=== PATIENT | female | born 1940 | race Caucasian/White ===

== ENCOUNTER 2017-09-15 22:13 | Emergency (ER) | payer OTHER ==
[~2017-09-15] VITALS: Ht 157.5 cm; Wt 101.8 kg
[~2017-09-15 22:13] MED LIST: ASPCH81X PO; B-CO1CAP17 PO; BUME2TAB3 PO; CALC12502 PO; FENO134C2 PO; FISHOIL PO; GARLTAB3 PO; KETO2CRE14 TOP; LISI2.5T5 PO; MCRK20 PO; MULTTAB PO; NITR0.4S UT; OMEP20CA9 PO; OXGN; RALO60TA30 PO; SPIR50TA2 PO; TRIA0.1C20 TOP; VERA120T PO
[2017-09-15 22:19] VITALS: TEMP 36.9; Ht 157.5 cm; Wt 101.8 kg
--- NOTE | 2017-09-15 22:58 | DIAGNOSTIC IMAGING REPORT ---
L ANKLE MIN 3 VIEWS ROUTINE HISTORY: 77 years-old Female left ankle pain, injury acute left ankle pain status post trauma COMPARISON: None available TECHNIQUE: 3 views of the left ankle FINDINGS: There is mild cortical irregularity and linear lucency involving the lateral malleolus below the level of the tibial plafond with subtle linear cortical lucencies and adjacent moderate associated soft tissue swelling. No acute displaced fracture identified. The bones appear mildly demineralized. Distal tibia appears intact. No osteochondral defect. Moderate spurring of the dorsal talus. Small plantar enthesophyte about the calcaneus. IMPRESSION: Moderate lateral ankle soft tissue swelling with suggested acute nondisplaced fracture of the lateral malleolus. Correlate with point tenderness. The above report was generated using voice recognition software. It may contain grammatical, syntax or spelling errors. Electronically signed by: Marcos Leroy M.D. 09/15/2017 10:56 PM Dictated Date/Time: 09/15/2017 10:54 PM
--- NOTE | 2017-09-15 23:02 | DIAGNOSTIC IMAGING REPORT ---
L KNEE 3 VIEWS HISTORY: 77 years-old Female left knee pain, injury acute left knee pain status post trauma COMPARISON: None available TECHNIQUE: 3 views of the left knee FINDINGS: Bones appear mildly demineralized. Mild to moderate tricompartmental osteoarthritis without acute fracture or subluxation identified. Trace joint effusion. IMPRESSION: No acute fracture. The above report was generated using voice recognition software. It may contain grammatical, syntax or spelling errors. Electronically signed by: Marcos Leroy M.D. 09/15/2017 11:01 PM Dictated Date/Time: 09/15/2017 10:58 PM
--- NOTE | 2017-09-15 23:28 | EMERGENCY ROOM VISIT NOTE ---
History First contact with patient: 22:17 Chief Complaint: ANKLE PAIN Stated Complaint: FALL/ ANKLE PAIN History of Present Illness The patient is a 77 year old female who presents to the Emergency Room with complaints of left ankle and knee pain after a fall. The patient states that she tripped over her feet while walking up a small stair, causing her to fall. She reports pain in the left ankle and knee. She was initially evaluated by EMS but refused transport at that time. She has been walking on the leg, but states that the ankle has been continuing to bother her. She rates her pain an 8/10. She also reports low back pain, but states that she has a history of chronic low back pain. She denies any numbness or tingling. She denies hitting her head or any other injuries. She reports the fall was mechanical in nature and not related to any dizziness or lightheadedness. Review of Systems A complete 10 point review of systems was reviewed with the patient with pertinent positives and negatives as per history of present illness. All else were negative. Past Medical/Surgical History Medical Problems: (1) Chronic back pain (2) Heart disease Social History Smoking Status: Never Smoker Marital Status: single Housing Status: lives alone Occupation Status: retired Current/Historical Medications Scheduled Aspirin (Aspirin Chewable), 81 MG PO DAILY Bumetanide (Bumex), 6 MG PO DAILY Calcium Carbonate (Os-Manuel 500), 500 MG PO TID Fenofibrate Micronized (Tricor), 134 MG PO DAILY Fish Oil ([place]-3), 3,000 MG PO DAILY Home O2 Therapy (Oxygen), 2 LITERS NA HS Ketoconazole 2% (Nizoral 2%), 1 APPLN TOP BID PRN Lisinopril (Lisinopril), 2.5 MG PO DAILY Multivitamins/Minerals (Mvi With Minerals), 1 TAB PO DAILY Nitroglycerin (Nitrostat), 0.4 MG UT PRN Omeprazole (Prilosec), 20 MG PO DAILY Potassium Chloride (Klor-Con), 20 MEQ PO TID Raloxifene Hcl (Evista), 60 MG PO DAILY Spironolactone (Aldactone), 50 MG PO DAILY Triamcinolone Acet 0.1% (Aristocort 0.1%), 1 APPLN TOP BID Verapamil Hcl (Calan), 120 MG PO DAILY Vitamin B Cmplx/Vitc/Folic Ac (Nephrocaps), 1 CAP PO DAILY [Garlic], 1,000 MG PO DAILY Physical Exam Vital Signs Date Time Temp Pulse Resp B/P (MAP) Pulse Ox O2 Delivery O2 Flow Rate FiO2 09/15/17 22:19 36.9 84 16 159/95 99 Room Air Physical Exam VITALS: Vitals are noted on the nurse's note and reviewed by myself. Vital signs stable. GENERAL: This is a 77-year-old female, in no acute distress, nondiaphoretic, well-developed well-nourished. HEART: Regular rate and rhythm without murmurs gallops or rubs. LUNGS: Clear to auscultation bilaterally without wheezes, rales or rhonchi. MUSCULOSKELETAL: There is edema and tenderness to palpation of the left lateral malleolus. Full range of motion of the ankle. No tenderness of the foot. Dorsalis pedis pulse 2+. There is no significant tenderness to palpation of the left knee, however slightly decreased range of motion of the knee secondary to patient discomfort. NEURO: Patient was alert and oriented to person place and time. Medical Decision & Procedures ER Provider Diagnostic Interpretation: L ANKLE MIN 3 VIEWS ROUTINE FINDINGS: There is mild cortical irregularity and linear lucency involving the lateral malleolus below the level of the tibial plafond with subtle linear cortical lucencies and adjacent moderate associated soft tissue swelling. No acute displaced fracture identified. The bones appear mildly demineralized. Distal tibia appears intact. No osteochondral defect. Moderate spurring of the dorsal talus. Small plantar enthesophyte about the calcaneus. IMPRESSION: Moderate lateral ankle soft tissue swelling with suggested acute nondisplaced fracture of the lateral malleolus. Correlate with point tenderness. L KNEE 3 VIEWS FINDINGS: Bones appear mildly demineralized. Mild to moderate tricompartmental osteoarthritis without acute fracture or subluxation identified. Trace joint effusion. IMPRESSION: No acute fracture. Medical Decision Differential diagnosis includes fracture, contusion, dislocation, among others. Patient was evaluated as above. X-rays were obtained and read by radiology. Patient appears to have a suspected small fracture of her lateral malleolus. She was placed in an Lazarus wrap and will use her walker at home as needed. She will follow-up with her primary care provider. She verbalized understanding of my assessment and treatment plan was discharged home in good condition. Medication Reconcilliation Current Medication List: was personally reviewed by me Blood Pressure Screening Patient's blood pressure: Elevated blood pressure Blood pressure disposition: Elevated BP felt to be situational Impression Primary Impression: Fall Additional Impression: Fracture of left ankle, lateral malleolus Departure Information Dispostion Home / Self-Care Condition GOOD Referrals Dheeraj Ramirez (PCP) Patient Instructions My [facility] Additional Instructions For pain control, you can use the following [id number] medicines (if >12 yo): - Regular strength (325mg/tab) Tylenol (acetaminophen) 2 tabs every 4-6 hours as needed. Do not exceed 12 tablets in a 24 hour period. Avoid taking more than 4 grams (4000 mg) of Tylenol per day. This includes any other sources of acetaminophen you may take on a regular basis. Wear the Lazarus wrap for the next 3-4 days, then as needed for pain. Follow up with your primary care provider for recheck. Return to the emergency department with any worsening or new/concerning symptoms. Problem Qualifiers Primary Impression: Fall Encounter type: initial encounter Qualified Codes: W19.XXXA - Unspecified fall, initial encounter Additional Impression: Fracture of left ankle, lateral malleolus Encounter type: initial encounter Fracture type: closed Fracture alignment : nondisplaced Qualified Codes: S82.65XA - Nondisplaced fracture of lateral malleolus of left fibula, initial encounter for closed fracture
[2017-09-15 23:47] VITALS: BP 139/78; PULSE 83; O2SAT 97
== END 2017-09-15 23:48 | disposition home or self-care (01) ==
LOC: EDBD 22:13 → C.EDD 22:15
DX: S82.65XA Nondisplaced fracture of lateral malleolus of left fibula, initial encounter for closed fracture (principal); W19.XXXA Unspecified fall, initial encounter; I51.9 Heart disease, unspecified; Z79.82 Long term (current) use of aspirin

== ENCOUNTER 2017-09-18 11:13 | Inpatient (IN) | payer OTHER ==
[~2017-09-18] VITALS: Ht 157.5 cm; Wt 101.6 kg
--- NOTE | 2017-09-18 11:34 | EMERGENCY ROOM VISIT NOTE ---
History Report prepared by Cassia: Alex Mackenzie Under the Supervision of: Dr. Jean Carlos Poon M.D. First contact with patient: 11:26 Chief Complaint: OTHER COMPLAINT Stated Complaint: GENERALIZED WEAKNESS History of Present Illness The patient is a 77 year old female who presents to the Emergency Room with complaints of persistent weakness after a fall 3 days ago. She states that she has been having problems with pain in her right hip for a while, and is supposed to see pain management. She says that she tripped and fell 3 days ago, somewhat due to the hip pain, and ever since then, she has been "too weak to get around", and been unable to get around her house well enough to eat well over the past few days. The patient notes that she was seen here 3 days ago after the fall, and was discharged that night, but the delivery driver had to help her into the house that night. She notes that she has been having left ankle pain since the fall. The patient says that she did not hit her head on the fall. She adds that she has been feeling shaky. She notes no history of strokes or heart attacks. She is on Aspirin but no other blood thinners. The patient denies any headaches, fevers, chills, neck pain, back pain, vomiting, abdominal pain, runny nose, or urinary burning. Source of History: patient Onset: 3 days ago Position: other (global - weakness) Symptom Intensity: unable to eat enough due to not being able to get around Timing: other (persistent) Associated Symptoms: No fevers, No chills, No headache, No neck pain, No abdominal pain, No back pain, No urinary symptoms Note: Associated symptoms: Left ankle pain, shaky. Denies runny nose. Review of Systems See HPI for pertinent positives & negatives. A total of 10 systems reviewed and were otherwise negative. Past Medical & Surgical Medical Problems: (1) Chronic acquired lymphedema (2) Chronic back pain (3) Chronic GERD (4) Dependence on nocturnal oxygen therapy (5) Dyslipidemia (6) HTN (hypertension) (7) Mitral valve prolapse (8) Morbid obesity with BMI of 40.0-44.9, adult (9) RADHA (obstructive sleep apnea) (10) Right heart failure Family History Family history omitted secondary to patient's advanced age. Social History Smoking Status: Never Smoker Marital Status: single Housing Status: lives alone Occupation Status: retired Current/Historical Medications Scheduled Aspirin (Aspirin Chewable), 81 MG PO DAILY B-Complex Vitamins (Vitamin B Complex), 1 TAB PO DAILY Bumetanide (Bumex), 2 MG PO TID Calcium Carbonate (Os-Manuel 500), 500 MG PO TID Fenofibrate Micronized (Tricor), 134 MG PO DAILY Garlic (Garlic), 1 CAP PO DAILY Home O2 Therapy (Oxygen), 2 LITERS NA HS Lisinopril (Lisinopril), 5 MG PO DAILY Metolazone (Zaroxolyn), 2.5 MG PO 2XWK Multivitamins/Minerals (Mvi With Minerals), 1 TAB PO DAILY Ocuvite Preservision (Ocuvite Preservision), 1 TAB PO BID Cook-3 Fatty Acids (Fish Oil), 1 CAP TID Potassium Ext Rel (Klor-Con), 20 MEQ PO TID Psyllium (Metamucil), 1 TSP PO DAILY Raloxifene Hcl (Evista), 60 MG PO DAILY Ranitidine (Zantac), 150 MG PO BID Spironolactone (Aldactone), 50 MG PO BID Allergies Coded Allergies: Demeclocycline (Verified Allergy, Unknown, ., 09/18/17) Sulfamethoxazole w/Trimethoprim (Verified Allergy, Unknown, ., 09/18/17) Physical Exam Vital Signs Date Time Temp Pulse Resp B/P (MAP) Pulse Ox O2 Delivery O2 Flow Rate FiO2 09/18/17 11:20 36.9 70 20 134/66 97 Room Air Physical Exam GENERAL: Patient is elderly appearing and in no acute distress. HEENT: No acute trauma, normocephalic atraumatic, mucous membranes moist, no nasal congestion, no scleral icterus. NECK: No stridor, no adenopathy, no meningismus, trachea is midline. LUNGS: No dyspnea. Clear to auscultation and equal bilaterally. No wheeze, no rhonchi. HEART: Regular rate and rhythm. No murmurs, rubs, gallops appreciated. ABDOMEN: Soft, nontender, bowel sounds positive, no masses appreciated, no peritonitis. BACK: No midline tenderness, no CVA tenderness EXTREMITIES: Vague tenderness over right hip and left ankle. No cyanosis, no edema. NEUROLOGIC: Alert and oriented, no acute motor or sensory deficits, no focal weakness, cranial nerves grossly intact. SKIN: No rash, no jaundice, no diaphoresis. Medical Decision & Procedures ER Provider Diagnostic Interpretation: Radiology results and stated below per my review and radiologist interpretation: R PELVIS/UNILATERAL HIP 2-3VIEWS CLINICAL HISTORY: Increasing right hip pain following recent fall. COMPARISON: None FINDINGS: Sacroiliac joints and symphysis pubis are intact. There is no acute fracture within the pelvis or the hips. Right hip joint space is preserved. There is mild osteophytosis of the right hip. There is an L4 compression fracture. Disc space narrowing with vacuum disc phenomenon at L4-L5 is noted. IMPRESSION: 1. No acute fracture within the pelvis or hips. 2. L4 compression fracture. Although age indeterminate, this appears subacute to acute. Electronically signed by: Lan Wilcox M.D. 09/18/2017 12:20 PM Dictated Date/Time: 09/18/2017 12:17 PM PELVIS NO IV/ORAL CONT (CT) CLINICAL HISTORY: right hip pain, persistent s/p fall COMPARISON STUDY: Pelvis and right hip radiographs September 18, 2017. FINDINGS: The CT of the lumbar spine will be reported separately. The L4 compression fracture is further discussed on that exam. The sacroiliac joints and symphysis pubis are intact. No acute fracture is identified within the pelvis or the hips. A lucent lesion at the right femoral head/neck junction likely reflects synovial herniation.. There is mild osteoarthritis of both hips. No pelvic hematoma is identified. Caliber of visualized small and large bowel are normal. There is a small fat-containing umbilical hernia. IMPRESSION: No acute fracture within the pelvis or hips. No pelvic hematoma. Electronically signed by: Lan Wilcox M.D. 09/18/2017 1:07 PM Dictated Date/Time: 09/18/2017 1:04 PM LUMBAR SPINE WITHOUT CLINICAL HISTORY: fall, right hip pain, concern L4 fracture on xray COMPARISON STUDY: No previous studies for comparison. FINDINGS: For purposes of numbering on this exam, the L5-S1 disc space is assigned to axial image 287 of [id number]. Note is made of an L4 compression fracture with 60% loss of vertebral body height and 8 mm of retropulsion. Fracture is likely subacute to acute. There is gas within the disc space as well as gas within the fracture. There is mild prevertebral infiltration/hemorrhage. Central canal and neural foramen are suboptimally assessed by CT. However, the retropulsion at this level, in conjunction with ligamentous hypertrophy and facet arthrosis result in severe narrowing of the central canal. There is an old mild L1 compression fracture involving the superior endplate without retropulsion. There is an age indeterminate mild compression fracture involving the left inferior endplate of L3. Sacroiliac joints are intact. Paravertebral soft tissues are otherwise unremarkable. Multilevel degenerative disc disease is noted with disc space narrowing, disc bulges and vacuum disc and ulna. There is moderate multilevel facet arthrosis. IMPRESSION: 1. Moderate to severe L4 compression fracture with 60% loss of vertebral body height. This fracture is likely acute to subacute. 8 mm of retropulsion at this level in conjunction with ligamentous hypertrophy and facet arthrosis result in severe narrowing of the central canal. 2. Old mild L1 compression fracture. 3. Age indeterminate mild L3 compression fracture. 4. Multilevel degenerative disc disease and facet arthrosis, most pronounced at the L3-L4 and L4-L5 levels. Electronically signed by: Lan Wilcox M.D. 09/18/2017 1:03 PM Dictated Date/Time: 09/18/2017 12:[address] OF THE HEAD WITHOUT CONTRAST CLINICAL HISTORY: fall, weakness COMPARISON STUDY: No previous studies for comparison. TECHNIQUE: Helical axial images of the head were obtained without IV contrast. Automated exposure control was utilized for the study. A dose lowering technique was utilized adhering to the principles of ALARA. FINDINGS: No acute intracranial hemorrhage, midline shift or mass effect is present. Ventricular system is unremarkable for age. The basilar cisterns are patent. There are no extra-axial collections. White matter hypodensity suggests small vessel disease. There are no findings to suggest acute dural sinus thrombosis or acute territorial infarct. There are no calvarial fractures. Visualized portions of the sinuses and the mastoid air cells are clear. IMPRESSION: 1. No acute intracranial findings. 2. No calvarial fracture. Electronically signed by: Lan Wilcox M.D. 09/18/2017 12:54 PM Dictated Date/Time: 09/18/2017 12:52 PM Laboratory Results 09/18/17 11:50 Red Blood Count 4.79, Mean Corpuscular Volume 94.4, Mean Corpuscular Hemoglobin 32.6, Mean Corpuscular Hemoglobin Concent 34.5, Mean Platelet Volume 9.9, Neutrophils (%) (Auto) 70.2, Lymphocytes (%) (Auto) 20.5, Monocytes (%) (Auto) 8.2, Eosinophils (%) (Auto) 0.0, Basophils (%) (Auto) 0.3, Neutrophils # (Auto) 4.38, Lymphocytes # (Auto) 1.28, Monocytes # (Auto) 0.51, Eosinophils # (Auto) 0.00, Basophils # (Auto) 0.02 Test 09/18/17 11:50 09/18/17 12:20 09/18/17 12:53 White Blood Count 6.24 K/uL (4.8-10.8) Red Blood Count 4.79 M/uL (4.2-5.4) Hemoglobin 15.6 g/dL (12.0-16.0) Hematocrit 45.2 % (37-47) Mean Corpuscular Volume 94.4 fL (80-100) Mean Corpuscular Hemoglobin 32.6 pg (25-34) Mean Corpuscular Hemoglobin Concent 34.5 g/dl (32-36) Platelet Count 293 K/uL (130-400) Mean Platelet Volume 9.9 fL (7.4-10.4) Neutrophils (%) (Auto) 70.2 % Lymphocytes (%) (Auto) 20.5 % Monocytes (%) (Auto) 8.2 % Eosinophils (%) (Auto) 0.0 % Basophils (%) (Auto) 0.3 % Neutrophils # (Auto) 4.38 K/uL (1.4-6.5) Lymphocytes # (Auto) 1.28 K/uL (1.2-3.4) Monocytes # (Auto) 0.51 K/uL (0.11-0.59) Eosinophils # (Auto) 0.00 K/uL (0-0.5) Basophils # (Auto) 0.02 K/uL (0-0.2) RDW Standard Deviation 47.3 fL (36.4-46.3) RDW Coefficient of Variation 13.9 % (11.5-14.5) Immature Granulocyte % (Auto) 0.8 % Immature Granulocyte # (Auto) 0.05 K/uL (0.00-0.02) Est Creatinine Clear Calc Drug Dose 64.7 ml/min Troponin I < 0.015 ng/ml (0-0.045) Urine Color YELLOW Urine Appearance CLEAR (CLEAR) Urine pH 5.5 (4.5-7.5) Urine Specific [place] 1.016 (1.000-1.030) Urine Protein NEG (NEG) Urine Glucose (UA) NEG (NEG) Urine Ketones NEG (NEG) Urine Occult Blood NEG (NEG) Urine Nitrite NEG (NEG) Urine Bilirubin NEG (NEG) Urine Urobilinogen NEG (NEG) Urine Leukocyte Esterase NEG (NEG) Urine WBC (Auto) 0 /hpf (0-5) Urine RBC (Auto) 0-4 /hpf (0-4) Urine Hyaline Casts (Auto) 1-5 /lpf (0-5) Urine Epithelial Cells (Auto) 0-5 /lpf (0-5) Urine Bacteria (Auto) NEG (NEG) Magnesium Level mg/dl (1.8-2.4) Laboratory results as reviewed by me. ECG Indication: weakness Rate (beats per minute): 62 Rhythm: normal sinus Findings: no acute ischemic change, no ectopy ED Course 1127: The patient was evaluated in room B12B. A complete history and physical exam was performed. 1319: [facility] 1323: I discussed the patient with Dr. Brendon Pimentel public relations representative - she will evaluate the patient for further treatment. 1326: Upon reevaluation, the patient is resting. Discussed results and treatment plan with the patient. She verbalized understanding and agreement with the treatment plan. The patient will be evaluated for further management. Medical Decision Differential: Intracranial Injury, Cervical Injury, Intrathoracic/Abdominal Injury, Neurologic Injuries, Fractures/Dislocations, Lacerations, Tetanus Status , amongst other pathologies entertained. 77 yr old female with fall a few days ago resulting in likely minor ankle fracture who since getting home has noted worsening right hip pain beyond her chronic pain in this hip. No neuro deficits and is able to ambulate with assistance (secondary to pain). Declines pain medications while in bed. Work- up reveals severe stenosis lumbar spine secondary to L4 compression fracture which appears acute, and I suspect it is from fall a few days ago as she denies knowing about this previously and has had recent work-up for this pain. She is medically stable. Reviewed with ortho spine who note possibility of surgical need and with this being weekend will bring in to help figure out best approach as patient can not go home and I do not feel sending to [facility] would be appropriate at this time. Given fall and reported generalized weakness I did opt to do CT head which was negative, as were labs obtained. Head Trauma GCS Score: 15 Medication Reconcilliation Current Medication List: was personally reviewed by me Blood Pressure Screening Patient's blood pressure: Elevated blood pressure Blood pressure disposition: Elevated BP felt to be situational Consults Time Called: 1314 Consulting Physician: Froilan RAMIREZJairo [facility] ortho/spine Returned Call: 1319 I discussed the patient with Froilan RAMIREZJ[facility] ortho/spine. Additional Consults: Time Called: 1320 Consulted Physician: Dr. Brendon Pimentel public relations representative Returned Call: 1323 Additional Comments: I discussed the patient with Dr. Brendon Pimentel public relations representative - she will evaluate the patient for further treatment. Impression Primary Impression: Lumbar compression fracture Additional Impressions: Spinal stenosis Closed left ankle fracture Generalized weakness Scribe Attestation The scribe's documentation has been prepared under my direction and personally reviewed by me in its entirety. I confirm that the note above accurately reflects all work, treatment, procedures, and medical decision making performed by me. Departure Information Dispostion Being Evaluated By Hospitalist Referrals Dheeraj Ramirez (PCP) Patient Instructions My [facility] Problem Qualifiers
[2017-09-18] MEDS ORDERED: PSYL48.59 PO (11:48)
[2017-09-18] MEDS ORDERED: ZNTT/150 PO (11:48)
[2017-09-18] MEDS ORDERED: METO2.5T PO (11:48)
[2017-09-18] MEDS ORDERED: B-COTAB18 PO (11:48)
[2017-09-18] MEDS ORDERED: GARL10007 PO (11:48)
[2017-09-18] MEDS ORDERED: BACL10TA PO (11:48)
[2017-09-18] MEDS ORDERED: NAPR-1169 PO (11:48)
[2017-09-18] MEDS ORDERED: OMEGCAP2 (11:48)
[2017-09-18] MEDS ORDERED: MULT-190 PO (11:48)
[2017-09-18] MEDS ORDERED: BUME2TAB3 PO (11:48)
[2017-09-18] MEDS ORDERED: POTA20TA16 PO (11:48)
[2017-09-18] MEDS ORDERED: MULT-513 PO (11:48)
[2017-09-18 12:12] LABS: BASO % 0.3 %; BASO ABS # 0.02 K/uL (0-0.2); HEMATOCRIT 45.2 % (37-47); HEMOGLOBIN 15.6 g/dL (12.0-16.0); IG# 0.05 K/uL (0.00-0.02); LYMPH % 20.5 %; LYMPH ABS # 1.28 K/uL (1.2-3.4); MEAN CELL VOLUME 94.4 fL (80-100); MEAN CORPUSCULAR HEMOGLOBIN 32.6 pg (25-34); MEAN CORPUSCULAR HGB CONC 34.5 g/dl (32-36); MEAN PLATELET VOLUME 9.9 fL (7.4-10.4); MONO % 8.2 %; MONO ABS # 0.51 K/uL (0.11-0.59); NEUT % 70.2 %; NEUT ABS # 4.38 K/uL (1.4-6.5); PLATELET COUNT 293 K/uL (130-400); RED CELL DISTRIBUTION WIDTH CV 13.9 % (11.5-14.5); RED CELL DISTRIBUTION WIDTH SD 47.3 fL (36.4-46.3); WHITE BLOOD COUNT 6.24 K/uL (4.8-10.8)
--- NOTE | 2017-09-18 12:21 | DIAGNOSTIC IMAGING REPORT ---
R PELVIS/UNILATERAL HIP 2-3VIEWS CLINICAL HISTORY: Increasing right hip pain following recent fall. COMPARISON: None FINDINGS: Sacroiliac joints and symphysis pubis are intact. There is no acute fracture within the pelvis or the hips. Right hip joint space is preserved. There is mild osteophytosis of the right hip. There is an L4 compression fracture. Disc space narrowing with vacuum disc phenomenon at L4-L5 is noted. IMPRESSION: 1. No acute fracture within the pelvis or hips. 2. L4 compression fracture. Although age indeterminate, this appears subacute to acute. Electronically signed by: Lan Wilcox M.D. 09/18/2017 12:20 PM Dictated Date/Time: 09/18/2017 12:17 PM
[2017-09-18 12:37] LABS: BLOOD UREA NITROGEN 26 mg/dl (7-18); CALCIUM 9.4 mg/dl (8.5-10.1); CARBON DIOXIDE 28 mmol/L (21-32); GLUCOSE 103 mg/dl (70-99); SODIUM 134 mmol/L (136-145)
--- NOTE | 2017-09-18 12:56 | DIAGNOSTIC IMAGING REPORT ---
CT OF THE HEAD WITHOUT CONTRAST CLINICAL HISTORY: fall, weakness COMPARISON STUDY: No previous studies for comparison. TECHNIQUE: Helical axial images of the head were obtained without IV contrast. Automated exposure control was utilized for the study. A dose lowering technique was utilized adhering to the principles of ALARA. FINDINGS: No acute intracranial hemorrhage, midline shift or mass effect is present. Ventricular system is unremarkable for age. The basilar cisterns are patent. There are no extra-axial collections. White matter hypodensity suggests small vessel disease. There are no findings to suggest acute dural sinus thrombosis or acute territorial infarct. There are no calvarial fractures. Visualized portions of the sinuses and the mastoid air cells are clear. IMPRESSION: 1. No acute intracranial findings. 2. No calvarial fracture. Electronically signed by: Lan Wilcox M.D. 09/18/2017 12:54 PM Dictated Date/Time: 09/18/2017 12:52 PM
--- NOTE | 2017-09-18 13:05 | DIAGNOSTIC IMAGING REPORT ---
LUMBAR SPINE WITHOUT CLINICAL HISTORY: fall, right hip pain, concern L4 fracture on xray COMPARISON STUDY: No previous studies for comparison. FINDINGS: For purposes of numbering on this exam, the L5-S1 disc space is assigned to axial image 287 of [id number]. Note is made of an L4 compression fracture with 60% loss of vertebral body height and 8 mm of retropulsion. Fracture is likely subacute to acute. There is gas within the disc space as well as gas within the fracture. There is mild prevertebral infiltration/hemorrhage. Central canal and neural foramen are suboptimally assessed by CT. However, the retropulsion at this level, in conjunction with ligamentous hypertrophy and facet arthrosis result in severe narrowing of the central canal. There is an old mild L1 compression fracture involving the superior endplate without retropulsion. There is an age indeterminate mild compression fracture involving the left inferior endplate of L3. Sacroiliac joints are intact. Paravertebral soft tissues are otherwise unremarkable. Multilevel degenerative disc disease is noted with disc space narrowing, disc bulges and vacuum disc and ulna. There is moderate multilevel facet arthrosis. IMPRESSION: 1. Moderate to severe L4 compression fracture with 60% loss of vertebral body height. This fracture is likely acute to subacute. 8 mm of retropulsion at this level in conjunction with ligamentous hypertrophy and facet arthrosis result in severe narrowing of the central canal. 2. Old mild L1 compression fracture. 3. Age indeterminate mild L3 compression fracture. 4. Multilevel degenerative disc disease and facet arthrosis, most pronounced at the L3-L4 and L4-L5 levels. Electronically signed by: Lan Wilcox M.D. 09/18/2017 1:03 PM Dictated Date/Time: 09/18/2017 12:55 PM
--- NOTE | 2017-09-18 13:09 | DIAGNOSTIC IMAGING REPORT ---
PELVIS NO IV/ORAL CONT (CT) CLINICAL HISTORY: right hip pain, persistent s/p fall COMPARISON STUDY: Pelvis and right hip radiographs September 18, 2017. FINDINGS: The CT of the lumbar spine will be reported separately. The L4 compression fracture is further discussed on that exam. The sacroiliac joints and symphysis pubis are intact. No acute fracture is identified within the pelvis or the hips. A lucent lesion at the right femoral head/neck junction likely reflects synovial herniation.. There is mild osteoarthritis of both hips. No pelvic hematoma is identified. Caliber of visualized small and large bowel are normal. There is a small fat-containing umbilical hernia. IMPRESSION: No acute fracture within the pelvis or hips. No pelvic hematoma. Electronically signed by: Lan Wilcox M.D. 09/18/2017 1:07 PM Dictated Date/Time: 09/18/2017 1:04 PM
--- NOTE | 2017-09-18 13:34 | History and Physical ---
History & Physical Date & Time of Service: Sep 18, 2017 at 13:33 Chief Complaint: Generalized Weakness Primary Care Physician: Dheeraj Ramirez History of Present Illness Source: patient 77 yo F hx of HTN , chronic rt heart failure, chronic bilateral lower ext venous status edema, lymphedema , osteoporosis, dyslipidemia -was seen in ER 3 days back has she fell and had non displaced Fx of her Left ankle , pt was discharged form ER with pain meds and instructed for out pt follow up with Family physician pt has chronic hip pain with Sciatica , was seen by Dr Teixe[facility] 1 week back , was recommended to follow with pain management Dr Shah have not had appointment with pain management yet pt's felt worsening of back pain after the fall , on ER discharge -pt had to had industrial truck driver to help her get into house She lives alone , has been independent in her ADL's since the fall she has been using a walker , her mobility was very limited due to excruciating back pain 8-10/10 worse with sitting , movement had not been able to eat or drink enough in last 3 days , unable to sit up / arrange or cook meals due to back pain did not sustain any fall since in today's ER visit : CT of lumber spine shows : Moderate to severe L4 compression fracture with 60% loss of vertebral body height. This fracture is likely acute to subacute. 8 mm of retropulsion at this level in conjunction with ligamentous hypertrophy and facet arthrosis result in severe narrowing of the central canal. ER physician discussed the case with conference planning manager spinal Orthopedics Dr Wan pt will be admitted to Medicine service for pain management Ortho will evaluate the pt tomorrow Past Medical/Surgical History Medical Problems: (1) Chronic acquired lymphedema Status: Chronic (2) Chronic back pain Status: Chronic (3) Chronic GERD Status: Chronic (4) Dependence on nocturnal oxygen therapy Status: Chronic (5) Dyslipidemia Status: Chronic (6) HTN (hypertension) Status: Chronic (7) Mitral valve prolapse Status: Chronic (8) Morbid obesity with BMI of 40.0-44.9, adult Status: Chronic (9) RADHA (obstructive sleep apnea) Status: Chronic (10) Right heart failure Status: Chronic Social History Smoking Status: Never Smoker Marital Status: single Housing status: lives with family Occupational Status: retired Immunizations History of Influenza Vaccine: No History of Tetanus Vaccine?: No History of Pneumococcal: Yes History of Hepatitis B Vaccine: No Allergies Coded Allergies: Demeclocycline (Verified Allergy, Unknown, ., 09/18/17) Sulfamethoxazole w/Trimethoprim (Verified Allergy, Unknown, ., 09/18/17) Home Medications Scheduled Aspirin (Aspirin Chewable), 81 MG PO DAILY B-Complex Vitamins (Vitamin B Complex), 1 TAB PO DAILY Bumetanide (Bumex), 2 MG PO TID Calcium Carbonate (Os-Manuel 500), 500 MG PO TID Fenofibrate Micronized (Tricor), 134 MG PO DAILY Garlic (Garlic), 1 CAP PO DAILY Home O2 Therapy (Oxygen), 2 LITERS NA HS Lisinopril (Lisinopril), 5 MG PO DAILY Metolazone (Zaroxolyn), 2.5 MG PO 2XWK Multivitamins/Minerals (Mvi With Minerals), 1 TAB PO DAILY Ocuvite Preservision (Ocuvite Preservision), 1 TAB PO BID [place]-3 Fatty Acids (Fish Oil), 1 CAP TID Potassium Ext Rel (Klor-Con), 20 MEQ PO TID Psyllium (Metamucil), 1 TSP PO DAILY Raloxifene Hcl (Evista), 60 MG PO DAILY Ranitidine (Zantac), 150 MG PO BID Spironolactone (Aldactone), 50 MG PO BID Review of Systems Constitutional: + weakness, + fatigue Respiratory: No cough, No sputum, No wheezing, No shortness of breath, No dyspnea on exertion, No dyspnea at rest, No hemoptysis, No problem reported Cardiovascular: No chest pain, No orthopnea, No PND, No edema, No claudication , No palpitations, No problem reported Abdomen: No pain, No nausea, No vomiting, No diarrhea, No constipation, No GI bleeding, No problem reported Musculoskeletal: + joint pain (hip pain /left ankle pain ), + problem reported (severe low back pain /worse with movement ) Genitourinary - Female: No dysuria, No urinary frequency, No urinary urgency, No urinary incontinence, No urinary retention, No hematuria, No dysmenorrhea, No menorrhagia, No metrorrhagia, No rash, No vaginal bleeding, No vaginal discharge, No vaginal itching, No vulvodynia, No , No problem reported Neurologic: No memory loss, No paralysis, No weakness, No numbness/tingling, No vertigo, No balance problems, No problem reported Psychiatric: No depression symptoms, No anhedonism, No anxiety, No insomnia, No substance abuse, No problem reported Endocrine: No fatigue, No excessive thirst, No excessive urination, No problem reported Physical Exam Vital Signs Date Time Temp Pulse Resp B/P (MAP) Pulse Ox O2 Delivery O2 Flow Rate FiO2 09/18/17 11:20 36.9 70 20 134/66 97 Room Air General Appearance: no apparent distress Head: normocephalic, atraumatic Eyes: normal inspection, sclerae normal ENT: normal ENT inspection Neck: supple, thyroid normal, no carotid bruits, trachea midline Respiratory/Chest: chest non-tender, lungs clear, normal breath sounds, no respiratory distress Cardiovascular: regular rate, rhythm, no edema, no JVD, normal peripheral pulses Abdomen/GI: normal bowel sounds, non tender, soft Extremities/Musculoskelatal: normal capillary refill, + pedal edema (+ 2 bilateral chronic edema /lumphadenopathy ), + pertinent finding (left ankle in bandage , no swelling noted, limited movement at joint due to pain , /Point tenderness in low back above sacral area /no swelling or redness noted ) Neurologic/Psych: no motor/sensory deficits, alert, oriented x 3 Skin: normal color, warm/dry, no rash Diagnostics Laboratory Results Results Past 24 Hours Test 09/18/17 11:50 09/18/17 12:20 09/18/17 12:53 Range/Units White Blood Count 6.24 4.8-10.8 K/uL Red Blood Count 4.79 4.2-5.4 M/uL Hemoglobin 15.6 12.0-16.0 g/dL Hematocrit 45.2 37-47 % Mean Corpuscular Volume 94.4 80-100 fL Mean Corpuscular Hemoglobin 32.6 25-34 pg Mean Corpuscular Hemoglobin Concent 34.5 32-36 g/dl Platelet Count 293 130-400 K/uL Mean Platelet Volume 9.9 7.4-10.4 fL Neutrophils (%) (Auto) 70.2 % Lymphocytes (%) (Auto) 20.5 % Monocytes (%) (Auto) 8.2 % Eosinophils (%) (Auto) 0.0 % Basophils (%) (Auto) 0.3 % Neutrophils # (Auto) 4.38 1.4-6.5 K/uL Lymphocytes # (Auto) 1.28 1.2-3.4 K/uL Monocytes # (Auto) 0.51 0.11-0.59 K/uL Eosinophils # (Auto) 0.00 0-0.5 K/uL Basophils # (Auto) 0.02 0-0.2 K/uL RDW Standard Deviation 47.3 36.4-46.3 fL RDW Coefficient of Variation 13.9 11.5-14.5 % Immature Granulocyte % (Auto) 0.8 % Immature Granulocyte # (Auto) 0.05 0.00-0.02 K/uL Sodium Level 134 136-145 mmol/L Potassium Level 3.5-5.1 mmol/L Chloride Level 99 98-107 mmol/L Carbon Dioxide Level 28 21-32 mmol/L Anion Gap 7.0 3-11 mmol/L Blood Urea Nitrogen 26 7-18 mg/dl Creatinine 0.80 0.60-1.20 mg/dl Est Creatinine Clear Calc Drug Dose 64.7 ml/min Estimated GFR () 81.8 Estimated GFR (Non- 70.6 BUN/Creatinine Ratio 32.1 10-20 Random Glucose 103 70-99 mg/dl Calcium Level 9.4 8.5-10.1 mg/dl Magnesium Level 1.8-2.4 mg/dl Troponin I < 0.015 0-0.045 ng/ml Urine Color YELLOW Urine Appearance CLEAR CLEAR Urine pH 5.5 4.5-7.5 Urine Specific [place] 1.016 1.000-1.030 Urine Protein NEG NEG Urine Glucose (UA) NEG NEG Urine Ketones NEG NEG Urine Occult Blood NEG NEG Urine Nitrite NEG NEG Urine Bilirubin NEG NEG Urine Urobilinogen NEG NEG Urine Leukocyte Esterase NEG NEG Urine WBC (Auto) 0 0-5 /hpf Urine RBC (Auto) 0-4 0-4 /hpf Urine Hyaline Casts (Auto) 1-5 0-5 /lpf Urine Epithelial Cells (Auto) 0-5 0-5 /lpf Urine Bacteria (Auto) NEG NEG Diagnostic Radiology CT LUMBER SPINE : IMPRESSION: 1. Moderate to severe L4 compression fracture with 60% loss of vertebral body height. This fracture is likely acute to subacute. 8 mm of retropulsion at this level in conjunction with ligamentous hypertrophy and facet arthrosis result in severe narrowing of the central canal. 2. Old mild L1 compression fracture. 3. Age indeterminate mild L3 compression fracture. 4. Multilevel degenerative disc disease and facet arthrosis, most pronounced at the L3-L4 and L4-L5 levels. PELVIS NO IV/ORAL CONT (CT) CLINICAL HISTORY: right hip pain, persistent s/p fall COMPARISON STUDY: Pelvis and right hip radiographs September 18, 2017. FINDINGS: The CT of the lumbar spine will be reported separately. The L4 compression fracture is further discussed on that exam. The sacroiliac joints and symphysis pubis are intact. No acute fracture is identified within the pelvis or the hips. A lucent lesion at the right femoral head/neck junction likely reflects synovial herniation.. There is mild osteoarthritis of both hips. No pelvic hematoma is identified. Caliber of visualized small and large bowel are normal. There is a small fat-containing umbilical hernia. IMPRESSION: No acute fracture within the pelvis or hips. No pelvic hematoma. R PELVIS/UNILATERAL HIP 2-3VIEWS CLINICAL HISTORY: Increasing right hip pain following recent fall. COMPARISON: None FINDINGS: Sacroiliac joints and symphysis pubis are intact. There is no acute fracture within the pelvis or the hips. Right hip joint space is preserved. There is mild osteophytosis of the right hip. There is an L4 compression fracture. Disc space narrowing with vacuum disc phenomenon at L4-L5 is noted. IMPRESSION: 1. No acute fracture within the pelvis or hips. 2. L4 compression fracture. Although age indeterminate, this appears subacute to acute. CT OF THE HEAD WITHOUT CONTRAST CLINICAL HISTORY: fall, weakness COMPARISON STUDY: No previous studies for comparison. TECHNIQUE: Helical axial images of the head were obtained without IV contrast. Automated exposure control was utilized for the study. A dose lowering technique was utilized adhering to the principles of ALARA. FINDINGS: No acute intracranial hemorrhage, midline shift or mass effect is present. Ventricular system is unremarkable for age. The basilar cisterns are patent. There are no extra-axial collections. White matter hypodensity suggests small vessel disease. There are no findings to suggest acute dural sinus thrombosis or acute territorial infarct. There are no calvarial fractures. Visualized portions of the sinuses and the mastoid air cells are clear. IMPRESSION: 1. No acute intracranial findings. 2. No calvarial fracture. EKG Vent. rate 62 BPM GA interval 206 ms QRS duration 92 ms QT/QTc 420/426 ms P-R-T axes 76 -15 22 Normal sinus rhythm Moderate voltage criteria for LVH, may be normal variant Borderline ECG When compared with ECG of 09-AUG-2012 06:29, No significant change was found Impression Assessment and Plan ACUTE /SUB ACUTE COMPRESSION FX OF L4 : CT of lumber spine as above possible happened due to fall few days ( was due to mechanical cause -tripped over feet while climbing steps ) /underlying osteoporosis -pain control -pt is narcotic naive; has only takes PRN Tylenol /NSAID's -which has not been affection -ordered for PRN Percocet and IV Morphine PRN for severe pain ( pt is educated regarding side effects narcotics -nausea /Dizzy spell /feeling flushed ) -Lidoderm patch pain management consulted -Spinal orthopedics Dr Wan consulted for management of L4 compression Fx LEFT ANKLE FX : recent fall few days back stable , no displaced fx of lat malleolus on splint , pain control wt bearing as tolerated MILD HYPONATREMIA due to dehydration/poor PO intake in past 3 days due to severe back pain takes diuretics Bumex 2 mg TID ( did not skip any dose ) /Metolazone 5 mg twice a week /Aldactone 50 mg BID /Lisinopril 5 mg daily all the above diuretics help on hold gentle IV hydration repeat PRP in AM HTN: hypotensive with sign of dehydration /hyponatremia on Bumex 2 mg TID /Metolazone 5 mg twice a week /Aldactone 50 mg BID / Lisinopril 5 mg daily all antihypertensives /diuretics kept on hold monitor BP CHRONIC RT HEART FAILURE : follows with Cardiology Dr Duran appears to be vol depleted hold all the above diuretics monitor vol status RADHA: cont nocturnal 02 HYPERLIPIDEMIA : on Fenofibrate 134 mg daily OSTEOPOROSIS : cont Evista Ca supplement added vit D CODE STATUS : DNR/DNI -D/W pt ,has living will DVT PROPHYLAXIS : Sub q heparin DISPOSITION : lives at home by herself , never been , does not have family support hesitant to return back home till she is improved functionally enough to do her ADL's and house chores PT/OT eval requested -may need rehab Social service requested for discharge planing Routine medicine follow up with [facility] Level of Care Med/Surg Resuscitation Status DO NOT RESUSCITATE VTE Prophylaxis VTE Risk Assessment Done? Y/N: Yes Risk Level: Moderate Given or contraindicated: Unfractionated heparin SQ
[2017-09-18 13:44] VITALS: O2SAT 97; Ht 157.5 cm; Wt 101.6 kg
[2017-09-18] MEDS ORDERED: ALUMINUM/MAGNESIUM/SIMETH (MAALOX MAX) 30 ML UDC PO PRN (14:00)
[2017-09-18] MEDS ORDERED: ACETAMINOPHEN 325 MG TAB PO PRN (14:00)
[2017-09-18] MEDS ORDERED: MAGNESIUM HYDROXIDE SUSP 30 ML UDC PO PRN (14:00)
[2017-09-18] MEDS ORDERED: POLYETHYLENE (MIRALAX) 17 GM PACK PO PRN (14:00)
[2017-09-18] MEDS ORDERED: ONDANSETRON INJ 2 MG/ML 2 ML VIAL IV PRN (14:00)
[2017-09-18] MEDS ORDERED: OXYCODONE/ACETAMINOPHEN 5-325 TAB PO PRN ×2 (15:15)
[2017-09-18] MEDS ORDERED: MoRPHine SULFATE 2 MG/ML CARP IV PRN (15:15)
[2017-09-18 15:40] VITALS: BP 113/69; PULSE 72; TEMP 37.1; O2SAT 98
[2017-09-18] MEDS ORDERED: SODIUM CHLORIDE 0.9% 1000ML 1,000 ML IV SCH (16:15)
[2017-09-18 16:40] LABS: PTT PATIENT 23.7 SECONDS (21.0-31.0)
[2017-09-18] MEDS: TRICOR~ORDER AWAITING ACTION SCH (16:50)
[2017-09-18] MEDS ORDERED: LIDODERM (LIDOCAINE) PATCH 5% TD SCH ×2 (18:00→19:00)
--- NOTE | 2017-09-18 18:18 | DIAGNOSTIC IMAGING REPORT ---
BILATERAL LOWER EXTREMITY VENOUS DOPPLER HISTORY: Bilateral lower leg swelling , elevated D dimer COMPARISON STUDY: None. FINDINGS: There is normal compressibility, flow, and augmentation within the bilateral lower extremity deep venous systems. IMPRESSION: No DVT within the right or left lower extremity. Electronically signed by: Amanuel Roberts M.D. 09/18/2017 6:17 PM Dictated Date/Time: 09/18/2017 6:17 PM
--- NOTE | 2017-09-18 18:29 | Progress Note ---
Progress Note Date of Service Sep 18, 2017. Progress Note ATTENDING NOTE: d dimer elevated > 800 bilateral chronic lymphedema, limited mobility past few days due to back pain / ankle fx Lower ext USG ordered Report reviewed : BILATERAL LOWER EXTREMITY VENOUS DOPPLER HISTORY: Bilateral lower leg swelling , elevated D dimer COMPARISON STUDY: None. FINDINGS: There is normal compressibility, flow, and augmentation within the bilateral lower extremity deep venous systems. IMPRESSION: No DVT within the right or left lower extremity. Pt is moderate to high risk for DVT due to above reason cont Sub q heparin for DVT ppx
[2017-09-18] MEDS ORDERED: NURSING VERBAL MED ORDER ONE (20:00)
[2017-09-18] MEDS ORDERED: LIDODERM (LIDOCAINE) PATCH 5% TD ONE (20:15)
[2017-09-18] MEDS: DOCUSATE SODIUM 100 MG CAP PO SCH (20:51)
[2017-09-18] MEDS: CEROVITE ADV FORMULA TAB PO SCH (20:51)
[2017-09-18] MEDS: OMEGA-3 (PURIFIED FISH OIL) 1 GM CAP PO SCH (20:52)
[2017-09-18] MEDS: CALCIUM CARBONATE 1250MG TAB PO SCH (20:52)
[2017-09-18] MEDS: RANITIDINE HCL 150 MG TAB PO SCH (20:52)
[2017-09-18] MEDS: HEPARIN SOD 5000 UNIT/0.5 ML CARP SQ SCH (21:58)
[2017-09-18 23:21] VITALS: BP 101/62; PULSE 68; TEMP 36.8; O2SAT 97
[2017-09-19] MEDS: HEPARIN SOD 5000 UNIT/0.5 ML CARP SQ SCH ×2 (05:52→13:47)
[2017-09-19 07:16] VITALS: BP 111/68; PULSE 64; TEMP 36.7; O2SAT 98
[2017-09-19 07:52] LABS: CALCIUM 9.5 mg/dl (8.5-10.1); CREATININE 0.59 mg/dl (0.60-1.20); POTASSIUM 3.1 mmol/L (3.5-5.1)
[2017-09-19] MEDS: TRICOR~ORDER AWAITING ACTION SCH ×3 (08:00→16:54)
[2017-09-19] MEDS: DOCUSATE SODIUM 100 MG CAP PO SCH ×2 (08:29→20:43)
[2017-09-19] MEDS: CEROVITE ADV FORMULA TAB PO SCH ×2 (08:29→20:43)
[2017-09-19] MEDS: OMEGA-3 (PURIFIED FISH OIL) 1 GM CAP PO SCH ×3 (08:29→20:43)
[2017-09-19] MEDS: CALCIUM CARBONATE 1250MG TAB PO SCH ×3 (08:29→20:43)
[2017-09-19] MEDS: RANITIDINE HCL 150 MG TAB PO SCH ×2 (08:29→20:43)
[2017-09-19] MEDS: ASPIRIN 81 MG CHEW PO SCH (08:30)
[2017-09-19] MEDS: PSYLLIUM 58.6% PWD PACK S\\F PO SCH (08:30)
[2017-09-19] MEDS: VITAMIN B COMPLEX TAB PO SCH (08:30)
[2017-09-19] MEDS: RALOXIFENE 60 MG TAB PO SCH (08:30)
[2017-09-19] MEDS: LIDODERM (LIDOCAINE) PATCH 5% TD SCH (08:35)
[2017-09-19] MEDS ORDERED: ERGOCALCIFEROL 50,000 INTER.UNIT CAP PO SCH (09:00)
[2017-09-19] MEDS ORDERED: NON-FORMULARY MEDICATION (Garlic 1 CAP) PO SCH (09:00)
[2017-09-19] MEDS ORDERED: LISINOPRIL 5 MG TAB PO SCH (09:00)
[2017-09-19] MEDS ORDERED: CEROVITE ADV FORMULA TAB PO SCH (09:00)
[2017-09-19] MEDS ORDERED: HYDROmorphone INJ 0.5 MG/0.5 ML SYR IV PRN (11:15)
--- NOTE | 2017-09-19 11:19 | Pain Management Consultation ---
Pain Management Consultation Date of Consultation Sep 19, 2017. Reason for Consultation Assistance with pain management. Pain Location 1 - Axial low back pain 2 - Radiation to the right hip 3 - Radicular pain to right distal leg 4 - Radicular pain to the left distal leg 5 - Weakness in legs History Dudley marley is a 77-year-old female admitted to [facility] with complaints of acute onset of radicular pain after a fall. She has a history of chronic low back pain for years, however, she sustained a fall last and started experiencing new onset radicular pain as result. She was brought to the emergency room and further imaging demonstrated her to have a acute fracture of the L4 vertebra with 8 mm retropulsion. She also has other degenerative lumbar spine disease resulting in severe lumbar spinal stenosis with radicular pain. At this time, she complained of experiencing her typical chronic low back pain with increased intensity which radiates into the right hip area and pain in the lower extremities symmetrically in the lateral aspect all the way up to the distal tibial region. Leg pain occurs with assuming a sitting or standing position and is accompanied by a generalized sense of "weakness". She reports expressing generalized weakness and feels that her legs appear to feel weaker due to pain with activity. Leg pain occurs with activities request living such as standing up and walking several feet. She requires use of a wheeled walker to ambulate. Back pain is present constantly but does get worse when assuming a sitting or standing position. She rates the pain as 4/10 when moderate and 8/ 10 when severe. She denies any bowel or bladder incontinence, saddle anesthesia, or any sensory changes and lower extremities. She has been prescribed opioid analgesics as an inpatient but she has not used them. She reports experiencing worsening lymphedema from the use of NSAIDs in the past. She does have a history of chronic lymphedema. She has other multiple comorbid conditions including hypertension, sleep apnea, obesity and lumbar spinal stenosis chronic nature. Past Medical/Surgical History (1) Chronic back pain (2) Spinal stenosis (3) HTN (hypertension) (4) Chronic acquired lymphedema (5) Closed left ankle fracture (6) Osteoporosis (7) Mitral valve prolapse (8) Morbid obesity with BMI of 40.0-44.9, adult (9) Dyslipidemia (10) RADHA (obstructive sleep apnea) (11) Dependence on nocturnal oxygen therapy (12) Right heart failure (13) Chronic GERD Social / Work History Smoking Status: Never smoker Marital Status: single Housing Status: lives with family Occupation: retired Allergies Coded Allergies: Demeclocycline (Verified Allergy, Unknown, ., 09/18/17) Sulfamethoxazole w/Trimethoprim (Verified Allergy, Unknown, ., 09/18/17) Medications Current Inpatient Medications Medications (Trade) Dose Ordered Sig/Steve Route Start Time Stop Time Status Last Admin Dose Admin Acetaminophen (Tylenol Tab) 650 mg Q4H PRN PO 09/18/17 14:00 10/18/17 13:59 Al Hydrox/Mg Hydrox/Simethicone (Maalox Max Susp) 15 ml Q4H PRN PO 09/18/17 14:00 10/18/17 13:59 Magnesium Hydroxide (Milk Of Magnesia Susp) 30 ml Q6H PRN PO 09/18/17 14:00 10/18/17 13:59 Polyethylene (Miralax Powder Packet) 17 gm DAILY PRN PO 09/18/17 14:00 10/18/17 13:59 Ondansetron HCl (Zofran Inj) 4 mg Q6H PRN IV 09/18/17 14:00 10/18/17 13:59 Aspirin (Aspirin Chew) 81 mg DAILY PO 09/19/17 09:00 10/19/17 08:59 Calcium Carbonate (oS-Manuel 500 TAB) 1,250 mg TID PO 09/18/17 21:00 10/18/17 20:59 09/18/17 20:52 1,250 MG Multivitamins/ Minerals (Multivitamin W/ Minerals Tab) 1 tab BID PO 09/18/17 21:00 10/18/17 20:59 09/18/17 20:51 1 TAB Raloxifene HCl (Evista Tab) 60 mg DAILY PO 09/19/17 09:00 10/19/17 08:59 Ranitidine HCl (zANTac TAB) 150 mg BID PO 09/18/17 21:00 10/18/17 20:59 09/18/17 20:52 150 MG Vitamin B Complex (Vitamin B Complex) 1 tab DAILY PO 09/19/17 09:00 10/19/17 08:59 Miscellaneous Information (Order Awaiting Action) 1 ea QS N/A 09/18/17 16:00 10/18/17 15:59 Fish Oil (Redford-3 (Purified Fish Oil) Cap) 1 gm TID PO 09/18/17 21:00 10/18/17 20:59 09/18/17 20:52 1 GM Psyllium Hydrophilic Mucilloid (Metamucil Powder) 1 pkt DAILY PO 09/19/17 09:00 10/19/17 08:59 Oxycodone/ Acetaminophen (Percocet 5-325mg Tab) `1-2 tabs for pain 1 tab ... Q4H PRN PO 09/18/17 15:15 10/02/17 15:14 Docusate Sodium (coLACE CAP) 100 mg BID PO 09/18/17 21:00 10/18/17 20:59 Morphine Sulfate (MoRPHine SULFATE INJ) 1 mg Q6 PRN IV 09/18/17 15:15 10/02/17 15:14 Heparin Sodium (Porcine) (Heparin Sq 5000 Unit/0.5ml) 5,000 unit Q8 SQ 09/18/17 22:00 10/18/17 21:59 09/19/17 05:52 5,000 UNIT Miscellaneous (Remove Lidoderm Patch) 1 ea DAILY@21 N/A 09/19/17 00:00 10/19/17 00:00 09/19/17 00:07 1 EA Ergocalciferol (Vitamin D Cap) 50,000 interunit Mo@0900 PO 09/19/17 09:00 10/19/17 08:59 Lidocaine (Lidoderm Patch 5%) 2 patch QAM TD 09/19/17 09:00 10/19/17 08:59 Review of Systems Denies any recent history of fever, night sweats, unexplained weight loss, or constitutional symptoms. Otherwise, 8 point review of system has been reported to be negative. Physical Exam Height & Weight: Height 5 feet, 2.00 inches. Weight 101.600 (Kilograms) 223 (Pounds) Last Vital Signs Documentation Date Time Temp Pulse Resp B/P (MAP) Pulse Ox O2 Delivery O2 Flow Rate FiO2 09/19/17 07:16 36.7 64 18 111/68 (82) 98 Room Air 09/19/17 00:15 2.0 Exam: GENERAL: Flower Weiss is awake, alert and oriented. Appears well developed. She is in no distress at the present time. Appears generally deconditioned. BMI is 41 kg/m2. PSYCHIATRIC: Mood appears to be slighty depressed without suicidal ideations. Demonstrates flat affect. Short-term and long-term memory is intact. Judgment is intact. NECK: No lymphadenopathy is noted. Trachea midline. No thyromegaly noted. VASCULAR: Peripheral pulses are symmetrical. Moderate non-pitting distal edema noted in the legs. MUSCULOSKELETAL: Inspection of the lumbar spine demonstrates exaggerated lumbar lordotic curvature. No lesions are noted in the lumbar spine region. Palpation in the midline produces pain at the distal lumbar spine over the interspinous ligaments. Provocative testing of the facet joints is negative. Provocative testing of the sacroiliac joints bilaterally demonstrates negative. No myofascial tenderness or trigger points identifiable in the paraspinous musculature. Inspection of major joints of the lower demonstrates some deformity but no edema or erythema over the joints. Active and passive range of motion of lower extremity is symmetrical. SKIN: Appears unremarkable with some venous stasis changes and lower extremity. NEUROLOGICAL: Sensory exam demonstrates symmetrical sensations are extremities without deficits. Motor exam demonstrates diminished motor strength however, this is more due to guarding the intrinsic weakness. No pathologic reflexes are noted in the lower extremities. Gait is guarded with the use of wheeled walker. Straight leg raising is negative and change is noted with Achilles stretch. No pathologic reflexes are noted. Reflexes: Patellar Reflex L +2 R +2 Achilles Reflex L +2 R +2 Laboratory Laboratory Results (Last CBC): 09/18/17 11:50 Red Blood Count 4.79, Mean Corpuscular Volume 94.4, Mean Corpuscular Hemoglobin 32.6, Mean Corpuscular Hemoglobin Concent 34.5, Mean Platelet Volume 9.9, Neutrophils (%) (Auto) 70.2, Lymphocytes (%) (Auto) 20.5, Monocytes (%) (Auto) 8.2, Eosinophils (%) (Auto) 0.0, Basophils (%) (Auto) 0.3, Neutrophils # (Auto) 4.38, Lymphocytes # (Auto) 1.28, Monocytes # (Auto) 0.51, Eosinophils # (Auto) 0.00, Basophils # (Auto) 0.[address]: non enhanced CT Findings CT OF LUMBAR SPINE: IMPRESSION: 1. Moderate to severe L4 compression fracture with 60% loss of vertebral body height. This fracture is likely acute to subacute. 8 mm of retropulsion at this level in conjunction with ligamentous hypertrophy and facet arthrosis result in severe narrowing of the central canal. 2. Old mild L1 compression fracture. 3. Age indeterminate mild L3 compression fracture. 4. Multilevel degenerative disc disease and facet arthrosis, most pronounced at the L3-L4 and L4-L5 levels. Electronically signed by: Lan Wilcox M.D. CT OD HEAD: IMPRESSION: 1. No acute intracranial findings. 2. No calvarial fracture. Electronically signed by: Lan Wilcox M.D. CT OF PELVIS: IMPRESSION: No acute fracture within the pelvis or hips. No pelvic hematoma. Electronically signed by: Lan Wilcox M.D. 09/18/2017 1:07 PM Dictated Date/Time: 09/18/2017 1:04 PM 09/18/2017 1:03 PM Dictated Date/Time: 09/18/2017 12:55 PM [place] Drug Monitoring Program Search Results: patient reviewed within database (no matching records found.) Assessment 1. Acute vertebral fracture with retropulsion. 2. Lumbar spinal stenosis with radiculitis. 3. Multiple comorbid medical conditions. 4. Generalized deconditioning. Recommendations 1. Discontinue morphine and oxycodone. 2. Recommend initiating oral hydrocodone and hydromorphone intravenously for breakthrough pain. Patient was educated regarding use of mild opiate analgesics for her symptoms and that she would benefit from using the oral opioid to remain physically more active to prevent DVT and pneumonia as well as progressive deconditioning. 3. Await further input from spine surgery as to whether patient is a candidate for kyphoplasty or not.
[2017-09-19] MEDS: HYDROCODONE/ACETAMIN 5/325MG TAB PO PRN ×2 (12:40→20:40)
[2017-09-19] MEDS ORDERED: POTASSIUM CHLORIDE 10 MEQ TABCR PO ONE (12:45)
--- NOTE | 2017-09-19 14:06 | Orthopedic Consultation ---
Orthopedic Consultation Date of Consultation: Sep 19, 2017. Attending Physician: Christina Sanders D.O. Reason for Consultation: L4 compression fracture Lumbar spinal stenosis History of Present Illness This is a pleasant 77-year-old female that we are asked to see in consultation in regards to an acute to subacute L4 compression fracture with spinal stenosis. She states that she sustained a fall 4 days ago. She states was of the outside and tripped on the curb landing on her buttock. She did have a cane with her at that time. She presented to the emergency room that evening for further evaluation of her left ankle. She reports x-rays were taken and she was discharged home. Over the next several days her back pain progressed and she noted pain and weakness down both legs. She reports left leg is worse than right leg. The pain involves the anterior thighs and occasionally into the shins. This is reproduced with any type of activity, walking, standing. She is most comfortable lying down or sitting. She denies bowel or bladder changes. She presented to the emergency room again last evening secondary to back pain. Past Medical/Surgical History Medical Problems: (1) Closed left ankle fracture Status: Acute (2) Fall Status: Acute (3) Fracture of left ankle, lateral malleolus Status: Acute (4) Generalized weakness Status: Acute (5) Lumbar compression fracture Status: Acute (6) Spinal stenosis Status: Acute Social History Smoking Status: Never Smoker Marital Status: single Housing Status: lives alone Occupation Status: retired Allergies Coded Allergies: Demeclocycline (Verified Allergy, Unknown, ., 09/18/17) Sulfamethoxazole w/Trimethoprim (Verified Allergy, Unknown, ., 09/18/17) Home Medications Scheduled Aspirin (Aspirin Chewable), 81 MG PO DAILY B-Complex Vitamins (Vitamin B Complex), 1 TAB PO DAILY Bumetanide (Bumex), 2 MG PO TID Calcium Carbonate (Os-Manuel 500), 500 MG PO TID Fenofibrate Micronized (Tricor), 134 MG PO DAILY Garlic (Garlic), 1 CAP PO DAILY Home O2 Therapy (Oxygen), 2 LITERS NA HS Lisinopril (Lisinopril), 5 MG PO DAILY Metolazone (Zaroxolyn), 2.5 MG PO 2XWK Multivitamins/Minerals (Mvi With Minerals), 1 TAB PO DAILY Ocuvite Preservision (Ocuvite Preservision), 1 TAB PO BID Dorr-3 Fatty Acids (Fish Oil), 1 CAP TID Potassium Ext Rel (Klor-Con), 20 MEQ PO TID Psyllium (Metamucil), 1 TSP PO DAILY Raloxifene Hcl (Evista), 60 MG PO DAILY Ranitidine (Zantac), 150 MG PO BID Spironolactone (Aldactone), 50 MG PO BID Current Inpatient Medications Current Inpatient Medications Medications (Trade) Dose Ordered Sig/Steve Route Start Time Stop Time Status Last Admin Dose Admin Acetaminophen (Tylenol Tab) 650 mg Q4H PRN PO 09/18/17 14:00 10/18/17 13:59 Al Hydrox/Mg Hydrox/Simethicone (Maalox Max Susp) 15 ml Q4H PRN PO 09/18/17 14:00 10/18/17 13:59 Magnesium Hydroxide (Milk Of Magnesia Susp) 30 ml Q6H PRN PO 09/18/17 14:00 10/18/17 13:59 Polyethylene (Miralax Powder Packet) 17 gm DAILY PRN PO 09/18/17 14:00 10/18/17 13:59 Ondansetron HCl (Zofran Inj) 4 mg Q6H PRN IV 09/18/17 14:00 10/18/17 13:59 Aspirin (Aspirin Chew) 81 mg DAILY PO 09/19/17 09:00 10/19/17 08:59 09/19/17 08:30 81 MG Calcium Carbonate (oS-Manuel 500 TAB) 1,250 mg TID PO 09/18/17 21:00 10/18/17 20:59 09/19/17 13:43 1,250 MG Multivitamins/ Minerals (Multivitamin W/ Minerals Tab) 1 tab BID PO 09/18/17 21:00 10/18/17 20:59 09/19/17 08:29 1 TAB Raloxifene HCl (Evista Tab) 60 mg DAILY PO 09/19/17 09:00 10/19/17 08:59 09/19/17 08:30 60 MG Ranitidine HCl (zANTac TAB) 150 mg BID PO 09/18/17 21:00 10/18/17 20:59 09/19/17 08:29 150 MG Vitamin B Complex (Vitamin B Complex) 1 tab DAILY PO 09/19/17 09:00 10/19/17 08:59 09/19/17 08:30 1 TAB Miscellaneous Information (Order Awaiting Action) 1 ea QS N/A 09/18/17 16:00 10/18/17 15:59 Fish Oil (Dorr-3 (Purified Fish Oil) Cap) 1 gm TID PO 09/18/17 21:00 10/18/17 20:59 09/19/17 13:43 1 GM Psyllium Hydrophilic Mucilloid (Metamucil Powder) 1 pkt DAILY PO 09/19/17 09:00 10/19/17 08:59 09/19/17 08:30 1 PKT Docusate Sodium (coLACE CAP) 100 mg BID PO 09/18/17 21:00 10/18/17 20:59 09/19/17 08:29 100 MG Heparin Sodium (Porcine) (Heparin Sq 5000 Unit/0.5ml) 5,000 unit Q8 SQ 09/18/17 22:00 10/18/17 21:59 09/19/17 13:47 5,000 UNIT Miscellaneous (Remove Lidoderm Patch) 1 ea DAILY@21 N/A 09/19/17 00:00 10/19/17 00:00 09/19/17 00:07 1 EA Ergocalciferol (Vitamin D Cap) 50,000 interunit Mo@0900 PO 09/19/17 09:00 10/19/17 08:59 09/19/17 08:31 50,000 INTERUNIT Lidocaine (Lidoderm Patch 5%) 2 patch QAM TD 09/19/17 09:00 10/19/17 08:59 09/19/17 08:35 2 PATCH Acetaminophen/ Hydrocodone Bitart (Escanaba 5/325 Tab) 1 tab Q4H PRN PO 09/19/17 11:15 10/03/17 11:14 09/19/17 12:40 1 TAB Hydromorphone HCl (Dilaudid Inj) 0.5 mg Q3H PRN IV 09/19/17 11:15 10/03/17 11:14 Review of Systems Back pain Neurologic: + weakness Physical Exam Date Time Temp Pulse Resp B/P (MAP) Pulse Ox O2 Delivery O2 Flow Rate FiO2 1/29/18 07:45 Room Air 09/19/17 07:16 36.7 64 18 111/68 (82) 98 Room Air 09/19/17 00:15 Nasal Cannula 2.0 09/18/17 23:21 36.8 68 16 101/62 (75) 97 Nasal Cannula 2.0 09/18/17 15:40 Room Air 09/18/17 15:40 37.1 72 18 113/69 (84) 98 Room Air 09/18/17 14:20 74 20 118/57 96 Room Air Patient is lying in bed. She is in no obvious distress. She is cooperative with exam. She has negative tension signs bilaterally extremity. Strength is 5 over 5 bilateral EHL, dorsum, plantar flexion, inversion eversion, cars, hamstrings, hip flexors, everters, hip adductor's. She is neurovascular intact bilateral lower. Nontender bilaterally. It is difficult for her to roll over in bed to examine her lumbar spine. General Appearance: WD/WN, no apparent distress Head: normocephalic Eyes: normal inspection ENT: hearing grossly normal Neck: supple Respiratory/Chest: no respiratory distress Cardiovascular: regular rate, rhythm Abdomen/GI: soft Extremities/Musculoskelatal: normal inspection Neurologic/Psych: no motor/sensory deficits, oriented x 3 Skin: normal color, warm/dry Lymphatic: no adenopathy Laboratory Results Last 24 Hours Test 09/18/17 16:18 09/19/17 06:35 Prothrombin Time 10.1 SECONDS Prothromb Time International Ratio 1.0 Activated Partial Thromboplast Time 23.7 SECONDS Partial Thromboplastin Ratio 0.9 D-Dimer 840 ug/L FEU Sodium Level 140 mmol/L Potassium Level 3.1 mmol/L Chloride Level 105 mmol/L Carbon Dioxide Level 26 mmol/L Anion Gap 8.0 mmol/L Blood Urea Nitrogen 17 mg/dl Creatinine 0.59 mg/dl Est Creatinine Clear Calc Drug Dose 87.7 ml/min Estimated GFR () 101.7 Estimated GFR (Non- 87.8 BUN/Creatinine Ratio 28.4 Random Glucose 97 mg/dl Calcium Level 9.5 mg/dl Patient Name: ATIF PALMER Unit Number: [id number] Dictated: 09/18/17 1255 Transcribed: 09/18/17 1255 JA Printed Date/Time: [~ rep prt dt]/[~ rep prt tm] [~ rep ct labl] - [~ rep ct ivnm] [facility] [place] [address] Dictated: 09/18/17 1255 Transcribed: 09/18/17 1255 JA Printed Date/Time: [~ rep prt dt]/[~ rep prt tm] [~ rep ct labl] - [~ rep ct ivnm] Patient: ATIF PALMER Address1: [address] [facility] Rec: [id number] Address2: Acct ID: [id number] [facility] Zip: [place] [id number] Date: 1940 Sex: F Room/Bed: Ref Phy: Dheeraj Ramirez SC: REEMA Att Phy: Report #: [id number] Guerita Phy: Dheeraj Ramirez Test: LSWO Admit Phy: Bd Special Education Teacher: SAVI Interpreting Phy: Lan Wilcox MD Diagnosis: GENERALIZED WEAKNESS Ordering Phy: Jean Carlos Poon M.D. Service Date: 09/18/17 Admit Date: 09/18/17 MNE: [id number] CONF: DICTATED BY: Lan Wilcox MD]] CC: Dheeraj Ramirez Daniel F., M.D. Endcc: [~ rep ct add3]] LUMBAR SPINE WITHOUT CLINICAL HISTORY: fall, right hip pain, concern L4 fracture on xray COMPARISON STUDY: No previous studies for comparison. FINDINGS: For purposes of numbering on this exam, the L5-S1 disc space is assigned to axial image 287 of [id number]. Note is made of an L4 compression fracture with 60% loss of vertebral body height and 8 mm of retropulsion. Fracture is likely subacute to acute. There is gas within the disc space as well as gas within the fracture. There is mild prevertebral infiltration/hemorrhage. Central canal and neural foramen are suboptimally assessed by CT. However, the retropulsion at this level, in conjunction with ligamentous hypertrophy and facet arthrosis result in severe narrowing of the central canal. There is an old mild L1 compression fracture involving the superior endplate without retropulsion. There is an age indeterminate mild compression fracture involving the left inferior endplate of L3. Sacroiliac joints are intact. Paravertebral soft tissues are otherwise unremarkable. Multilevel degenerative disc disease is noted with disc space narrowing, disc bulges and vacuum disc and ulna. There is moderate multilevel facet arthrosis. IMPRESSION: 1. Moderate to severe L4 compression fracture with 60% loss of vertebral body height. This fracture is likely acute to subacute. 8 mm of retropulsion at this level in conjunction with ligamentous hypertrophy and facet arthrosis result in severe narrowing of the central canal. 2. Old mild L1 compression fracture. 3. Age indeterminate mild L3 compression fracture. 4. Multilevel degenerative disc disease and facet arthrosis, most pronounced at the L3-L4 and L4-L5 levels. Electronically signed by: Lan Wilcox M.D. 09/18/2017 1:03 PM Dictated Date/Time: 09/18/2017 12:55 PM The status of this report is Signed. Draft = Not yet reviewed or approved by Radiologist. Signed = Reviewed and approved by Radiologist. <AttendingPhy></AttendingPhy> <FamilyPhy>Dheeraj Ramirez</FamilyPhy> <PrimaryPhy> Dheeraj Ramirez</PrimaryPhy> <UnitNumber>[id number]</UnitNumber> <VisitNumber> [id number]</VisitNumber> <PatientName>SPENCERATIF ANTHONY</PatientName> < DateOfBirth>1940</DateOfBirth> <Location>C.EDB</Location> <ServiceDate></ServiceDate> <MNE>ESINDI</MNE> <OrderingPhy>Jean Carlos Poon M.D.</ OrderingPhy> <OrderingPhyMNE>f rep ord dr angelo</OrderingPhyMNE> <DictatingPhyMNE> f rep dict dr angelo</DictatingPhyMNE> <CCListMNE>f rep ct petey</CCListMNE> < AdmittingPhyMNE>f pt admit dr angelo</AdmittingPhyMNE> <AttendingPhyMNE>f pt attend dr angelo</AttendingPhyMNE> <ConsultingPhyMNE>f pt consult dr angelo</ConsultingPhyMNE> <FamilyPhyMNE>f pt fam dr angelo</FamilyPhyMNE> <OtherPhyMNE>f pt other dr angelo</OtherPhyMNE> < PrimaryPhyMNE>f pt prim care dr angelo</PrimaryPhyMNE> <ReferringPhyMNE>f pt referring dr angelo</ReferringPhyMNE> Assessment & Plan Assessment: Acute to subacute L4 compression fracture with associated severe lumbar spinal stenosis L3 4, L4 5 Plan: Cases also been reviewed with Dr. Wan. At this point time we will pursue his MRI of the lumbar spine no contrast necessary for better assessment of her stenosis at the L3 4, L4 5 levels. This will hopefully be performed today. I have tentatively made her nothing by mouth after midnight except meds and reviewed possible surgical intervention to include L4 kyphoplasty with biopsy as well as lumbar decompression L3 4, L4 5. Risks benefits pros cons alternatives were outlined in detail. I we will touch base again in the morning hopefully after MRI has been performed. Patient is comfortable With this plan.
[2017-09-19 15:15] VITALS: BP 129/82; PULSE 74; TEMP 36.5; O2SAT 98
--- NOTE | 2017-09-19 18:20 | Progress Note ---
Medicine Progress Note Date & Time of Visit: Sep 19, 2017 at 18:19. Subjective Patient reports her pain seems fairly controlled but has not been ambulating or been active much today. No overnight events noted. States she had not had a BM which is unusual. Denies any complaints of CP or SOB. Tolerating PO. Objective Last 8 Hrs Date Time Temp Pulse Resp B/P (MAP) Pulse Ox O2 Delivery O2 Flow Rate FiO2 09/19/17 15:15 36.5 74 18 129/82 (98) 98 Room Air Physical Exam: GENERAL: Patient is in no acute distress. HEENT: No acute trauma, normocephalic atraumatic, mucous membranes moist, no nasal congestion, no scleral icterus, conjunctivae clear. NECK: No stridor, trachea is midline. LUNGS: Clear to auscultation bilaterally, no wheeze, no rhonchi, breath sounds equal. HEART: Without murmurs gallops or rubs, regular rate and rhythm. ABDOMEN: Soft, nontender, bowel sounds positive EXTREMITIES: No cyanosis; trace B/L LE edema; pain in bilateral calves NEUROLOGIC: Oriented x 3, no acute motor or sensory deficits, no focal weakness. SKIN: No rash, no jaundice, no diaphoresis. Laboratory Results: Last 24 Hours Test 09/19/17 06:35 Sodium Level 140 mmol/L Potassium Level 3.1 mmol/L Chloride Level 105 mmol/L Carbon Dioxide Level 26 mmol/L Anion Gap 8.0 mmol/L Blood Urea Nitrogen 17 mg/dl Creatinine 0.59 mg/dl Est Creatinine Clear Calc Drug Dose 87.7 ml/min Estimated GFR () 101.7 Estimated GFR (Non- 87.8 BUN/Creatinine Ratio 28.4 Random Glucose 97 mg/dl Calcium Level 9.5 mg/dl Assessment & Plan INTRACTABLE BACK PAIN: ACUTE/SUB ACUTE COMPRESSION FX OF L4: -CT of lumber spine mentioned a compression fracture of L4 which appears acute to sub-acute -may have occurred secondary to the fall the patient sustained a few days ago ( due to mechanical fall, tripped over feet while climbing steps) -needs eval for osteoporosis -pain control; pain management consulted, appreciate recs -Spinal surgery consulted, have ordered lumbar spine MRI with further recommendations to follow LEFT ANKLE FRACTURE: -recent fall -stable, non displaced fracture of left lateral malleolus -was given a splint -pain control -wt bearing as tolerated MILD HYPONATREMIA: -likely due to dehydration/poor PO intake in past 3 days due to severe back pain and ongoing diuretic use -resolved following IV fluids and holding diuretics -monitor HTN: -BP was low on admission, suspected from hypovolemia -ration /hyponatremia -held Bumex 2 mg TID /Metolazone 5 mg twice a week /Aldactone 50 mg BID / Lisinopril 5 mg daily -monitor BP, normotensive today CHRONIC RT HEART FAILURE: -follows with Cardiology -diuretics were held on admission due to clinical appearance of hypovolemia; looks euvolemic now -resume diuretics -monitor volume status closely with daily weights and I's and O's RADHA: -uses nocturnal O2 which is continued HYPERLIPIDEMIA: -continued on Fenofibrate 134 mg daily OSTEOPOROSIS: -continue Evista -on Calcium + vit D supplement Current Inpatient Medications: Current Inpatient Medications Medications (Trade) Dose Ordered Sig/Steve Route Start Time Stop Time Status Last Admin Dose Admin Acetaminophen (Tylenol Tab) 650 mg Q4H PRN PO 09/18/17 14:00 10/18/17 13:59 Al Hydrox/Mg Hydrox/Simethicone (Maalox Max Susp) 15 ml Q4H PRN PO 09/18/17 14:00 10/18/17 13:59 Magnesium Hydroxide (Milk Of Magnesia Susp) 30 ml Q6H PRN PO 09/18/17 14:00 10/18/17 13:59 Polyethylene (Miralax Powder Packet) 17 gm DAILY PRN PO 09/18/17 14:00 10/18/17 13:59 Ondansetron HCl (Zofran Inj) 4 mg Q6H PRN IV 09/18/17 14:00 10/18/17 13:59 Aspirin (Aspirin Chew) 81 mg DAILY PO 09/19/17 09:00 10/19/17 08:59 09/19/17 08:30 81 MG Calcium Carbonate (oS-Manuel 500 TAB) 1,250 mg TID PO 09/18/17 21:00 10/18/17 20:59 09/19/17 13:43 1,250 MG Multivitamins/ Minerals (Multivitamin W/ Minerals Tab) 1 tab BID PO 09/18/17 21:00 10/18/17 20:59 09/19/17 08:29 1 TAB Raloxifene HCl (Evista Tab) 60 mg DAILY PO 09/19/17 09:00 10/19/17 08:59 09/19/17 08:30 60 MG Ranitidine HCl (zANTac TAB) 150 mg BID PO 09/18/17 21:00 10/18/17 20:59 09/19/17 08:29 150 MG Vitamin B Complex (Vitamin B Complex) 1 tab DAILY PO 09/19/17 09:00 10/19/17 08:59 09/19/17 08:30 1 TAB Miscellaneous Information (Order Awaiting Action) 1 ea QS N/A 09/18/17 16:00 10/18/17 15:59 Fish Oil (D[place]len-3 (Purified Fish Oil) Cap) 1 gm TID PO 09/18/17 21:00 10/18/17 20:59 09/19/17 13:43 1 GM Psyllium Hydrophilic Mucilloid (Metamucil Powder) 1 pkt DAILY PO 09/19/17 09:00 10/19/17 08:59 09/19/17 08:30 1 PKT Docusate Sodium (coLACE CAP) 100 mg BID PO 09/18/17 21:00 10/18/17 20:59 09/19/17 08:29 100 MG Heparin Sodium (Porcine) (Heparin Sq 5000 Unit/0.5ml) 5,000 unit Q8 SQ 09/18/17 22:00 10/18/17 21:59 Future Hold 09/19/17 13:47 5,000 UNIT Miscellaneous (Remove Lidoderm Patch) 1 ea DAILY@21 N/A 09/19/17 00:00 10/19/17 00:00 09/19/17 00:07 1 EA Ergocalciferol (Vitamin D Cap) 50,000 interunit Mo@0900 PO 09/19/17 09:00 10/19/17 08:59 09/19/17 08:31 50,000 INTERUNIT Lidocaine (Lidoderm Patch 5%) 2 patch QAM TD 09/19/17 09:00 10/19/17 08:59 09/19/17 08:35 2 PATCH Acetaminophen/ Hydrocodone Bitart ([place] 5/325 Tab) 1 tab Q4H PRN PO 09/19/17 11:15 2/12/18 11:14 09/19/17 12:40 1 TAB Hydromorphone HCl (Dilaudid Inj) 0.5 mg Q3H PRN IV 09/19/17 11:15 10/03/17 11:14
[2017-09-19] MEDS ORDERED: LORAZEPAM INJ 0.5 MG in SYRINGE 0.25 ML IV STA (22:53)
[2017-09-19 23:12] VITALS: BP 122/74; PULSE 63; TEMP 36.9; O2SAT 96
[2017-09-20] VITALS (8 sets, daily range): BP systolic 102–126; BP diastolic 65–78; PULSE 67–86; TEMP 36.2–36.6; O2SAT 94–100
[2017-09-20] MEDS: HYDROCODONE/ACETAMIN 5/325MG TAB PO PRN ×3 (05:12→21:43)
[2017-09-20 06:40] LABS: CALCIUM 10.1 mg/dl (8.5-10.1); CREATININE 0.65 mg/dl (0.60-1.20); POTASSIUM 3.7 mmol/L (3.5-5.1)
--- NOTE | 2017-09-20 07:19 | DIAGNOSTIC IMAGING REPORT ---
LUMBAR SPINE MRI HISTORY: Low back pain. Fall. assess spinal stenosis/L4 fx TECHNIQUE: Multiplanar multisequence MRI of the lumbar spine was performed without the use of contrast. COMPARISON: Lumbar spine CT 09/18/2017. FINDINGS: For the purpose of the report the L5-S1 disc space will be located on axial image 30 of 34. Redemonstration of a moderate to severe superior endplate compression fracture at L4. There is associated marrow edema within the vertebral body and a fluid collection within the fracture. The fracture appears to extend to the inferior endplate. This is consistent with an acute to subacute fracture. There are 6 mm of retropulsion of the L4 vertebral body. There is also a mild left-sided compression fracture at the inferior endplate of L3 which demonstrates less than 10% loss of height. There is associated marrow edema at this level. Mild superior endplate compression fracture at L1 which appears to be old. There is paraspinal edema at the L3 and L4 levels. Moderate to severe disc space narrowing at L4-L5 and mild disc space narrowing at L5-S1. The conus terminates at the L1 level. Moderate facet degenerative changes within the lumbar spine. L1-L2: Tiny broad-based posterior disc bulge without significant central canal narrowing. There is mild to moderate bilateral neural foraminal narrowing. L2-L3: Tiny broad-based posterior disc bulge without significant central canal narrowing. There is mild bilateral neural foraminal narrowing. L3-L4: Severe central canal narrowing due to the retropulsion of the L4 vertebral body and ligamentum and facet hypertrophy. There is mild to moderate bilateral neural foraminal narrowing. There is also moderate central canal narrowing posterior to the L4 vertebral body due to the retropulsed fragment. L4-L5: Broad-based posterior disc bulge with a small focal central disc protrusion resulting in [id number]-[id number]-owduyybt central canal and mild left neural foraminal narrowing. There is moderate to severe right-sided neural foraminal narrowing. L5-S1: Right paracentral focal disc protrusion which abuts and displaces the transiting right S1 nerve root. Mild central canal and moderate right neural foraminal narrowing. No significant left-sided neural foraminal narrowing. IMPRESSION: 1. Redemonstration of the acute to subacute moderate to severe superior endplate compression fracture at L4 which demonstrates up to 6 mm of retropulsion. This results in severe central canal narrowing at the L3-L4 level. Of note, there appears to be a fracture line extending to the inferior endplate. 2. There is also a mild inferior endplate compression fracture at L3 which appears acute to subacute. 3. Old mild superior endplate compression fracture at L1. 4. A small right paracentral focal disc protrusion at L5-S1 which abuts and displaces the transiting right S1 nerve root. 5. Additional degenerative changes as described above. Electronically signed by: Amanuel Roberts M.D. 09/20/2017 7:17 AM Dictated Date/Time: 09/20/2017 7:06 AM
[2017-09-20] MEDS: TRICOR~ORDER AWAITING ACTION SCH ×4 (08:41→23:09)
[2017-09-20] MEDS: PSYLLIUM 58.6% PWD PACK S\\F PO SCH (08:44)
[2017-09-20] MEDS: VITAMIN B COMPLEX TAB PO SCH (08:45)
[2017-09-20] MEDS: DOCUSATE SODIUM 100 MG CAP PO SCH ×2 (08:45→21:10)
[2017-09-20] MEDS: CEROVITE ADV FORMULA TAB PO SCH ×2 (08:46→21:10)
[2017-09-20] MEDS: CALCIUM CARBONATE 1250MG TAB PO SCH ×3 (08:46→21:10)
[2017-09-20] MEDS: OMEGA-3 (PURIFIED FISH OIL) 1 GM CAP PO SCH ×3 (08:46→21:11)
[2017-09-20] MEDS: RALOXIFENE 60 MG TAB PO SCH (08:46)
[2017-09-20] MEDS: RANITIDINE HCL 150 MG TAB PO SCH ×2 (08:46→21:11)
[2017-09-20] MEDS: LIDODERM (LIDOCAINE) PATCH 5% TD SCH (08:47)
[2017-09-20] MEDS: ASPIRIN 81 MG CHEW PO SCH (08:49)
--- NOTE | 2017-09-20 09:39 | Orthopedic Progress Note ---
Orthopedic Progress Note Date of Service Sep 20, 2017. Subjective Additional Notes: no new complaints. MRI lumbar spine was performed this morning and reviewed with patient. Objective N/V intact, A&O x3, toes mobile unchanged Date Time Temp Pulse Resp B/P (MAP) Pulse Ox O2 Delivery O2 Flow Rate FiO2 09/20/17 07:59 36.5 67 19 121/77 (92) 99 Room Air 09/20/17 00:15 96 Room Air 2.0 09/19/17 23:12 36.9 63 18 122/74 (90) 96 Room Air 09/19/17 16:20 Room Air 09/19/17 15:15 36.5 74 18 129/82 (98) 98 Room Air Laboratory Results 24 Hours: Patient Name: ATIF PALMER Unit Number: [id number] Dictated: 09/20/17705 Transcribed: 09/20/17705 PAJ Printed Date/Time: [~ rep prt dt]/[~ rep prt tm] [~ rep ct labl] - [~ rep ct ivnm] [facility] [place] [address] Dictated: 09/20/17705 Transcribed: 09/20/17705 PAJ Printed Date/Time: [~ rep prt dt]/[~ rep prt tm] [~ rep ct labl] - [~ rep ct ivnm] Patient: ATIF PALMER Address1: [address] [place] [address] [address] [facility] Rec: [id number] Address2: Acct ID: [id number] [facility] Zip: [place] [address] Date: 1940 Sex: F Room/Bed: N384- Ref Phy: Dheeraj Ramirez SC: CMckaylaMSN Att Phy: Christina Sanders DBuck Report #: [id number] Guerita Phy: Dheeraj Ramirez Test: LSWOC Admit Phy: Jailyn Olivas M.D. Agile Project Manager: HOMA Interpreting Phy: Amanuel Roberts MD Diagnosis: CHRONIC BACK PAIN, LUMBAR COMPRESSION FX Ordering Phy: Alem Moya Service Date: 09/20/17 Admit Date: 09/18/1800/28/18 MNE: [id number] CONF: DICTATED BY: Amanuel Roberts M.D.]] CC: Christina Sanders D.O. Getz,Dheeraj Moya,Alem Rodriguez Endcc: [~ rep ct add3]] LUMBAR SPINE MRI HISTORY: Low back pain. Fall. assess spinal stenosis/L4 fx TECHNIQUE: Multiplanar multisequence MRI of the lumbar spine was performed without the use of contrast. COMPARISON: Lumbar spine CT 09/18/2017. FINDINGS: For the purpose of the report the L5-S1 disc space will be located on axial image 30 of 34. Redemonstration of a moderate to severe superior endplate compression fracture at L4. There is associated marrow edema within the vertebral body and a fluid collection within the fracture. The fracture appears to extend to the inferior endplate. This is consistent with an acute to subacute fracture. There are 6 mm of retropulsion of the L4 vertebral body. There is also a mild left-sided compression fracture at the inferior endplate of L3 which demonstrates less than 10% loss of height. There is associated marrow edema at this level. Mild superior endplate compression fracture at L1 which appears to be old. There is paraspinal edema at the L3 and L4 levels. Moderate to severe disc space narrowing at L4-L5 and mild disc space narrowing at L5-S1. The conus terminates at the L1 level. Moderate facet degenerative changes within the lumbar spine. L1-L2: Tiny broad-based posterior disc bulge without significant central canal narrowing. There is mild to moderate bilateral neural foraminal narrowing. L2-L3: Tiny broad-based posterior disc bulge without significant central canal narrowing. There is mild bilateral neural foraminal narrowing. L3-L4: Severe central canal narrowing due to the retropulsion of the L4 vertebral body and ligamentum and facet hypertrophy. There is mild to moderate bilateral neural foraminal narrowing. There is also moderate central canal narrowing posterior to the L4 vertebral body due to the retropulsed fragment. L4-L5: Broad-based posterior disc bulge with a small focal central disc protrusion resulting in gygu-ot-nemjgspy central canal and mild left neural foraminal narrowing. There is moderate to severe right-sided neural foraminal narrowing. L5-S1: Right paracentral focal disc protrusion which abuts and displaces the transiting right S1 nerve root. Mild central canal and moderate right neural foraminal narrowing. No significant left-sided neural foraminal narrowing. IMPRESSION: 1. Redemonstration of the acute to subacute moderate to severe superior endplate compression fracture at L4 which demonstrates up to 6 mm of retropulsion. This results in severe central canal narrowing at the L3-L4 level. Of note, there appears to be a fracture line extending to the inferior endplate. 2. There is also a mild inferior endplate compression fracture at L3 which appears acute to subacute. 3. Old mild superior endplate compression fracture at L1. 4. A small right paracentral focal disc protrusion at L5-S1 which abuts and displaces the transiting right S1 nerve root. 5. Additional degenerative changes as described above. Electronically signed by: Amanuel Roberts M.D. 09/20/2017 7:17 AM Dictated Date/Time: 09/20/2017 7:06 AM The status of this report is Signed. Draft = Not yet reviewed or approved by Radiologist. Signed = Reviewed and approved by Radiologist. <AttendingPhy>Christina Sanders D.O.</AttendingPhy> <FamilyPhy>Dheeraj Ramirez</ FamilyPhy> <PrimaryPhy>Dheeraj Ramirez</PrimaryPhy> <UnitNumber>[id number]</ UnitNumber> <VisitNumber>[id number]</VisitNumber> <PatientName>SPENCERATIFWalter CRUZ</PatientName> <DateOfBirth>1940</DateOfBirth> <Location>C.MSN</ Location> <ServiceDate>09/18/17</ServiceDate> <MNE>ESINDI</MNE> <OrderingPhy> Alem Moya</OrderingPhy> <OrderingPhyMNE>f rep ord dr angelo</ OrderingPhyMNE> <DictatingPhyMNE>f rep dict dr angelo</DictatingPhyMNE> <CCListMNE> f rep ct mne</CCListMNE> <AdmittingPhyMNE>f pt admit dr angelo</AdmittingPhyMNE> < AttendingPhyMNE>f pt attend dr angelo</AttendingPhyMNE> <ConsultingPhyMNE>f pt consult dr angelo</ConsultingPhyMNE> <FamilyPhyMNE>f pt fam dr angelo</FamilyPhyMNE> <OtherPhyMNE>f pt other dr angelo</OtherPhyMNE> < PrimaryPhyMNE>f pt prim care dr angelo</PrimaryPhyMNE> <ReferringPhyMNE>f pt referring dr angelo</ReferringPhyMNE> Assessment & Plan Assessment: acute L4 compression fracture, acute to subacute L3 inferior endplate fracture severe central spinal stenosis L3-4 severe neuroforaminal stenosis right L4-5 Plan: options have been reviewed with patient including surgery pt wants to proceed with planned surgery today--posterior lumbar decompression L3-4,L4-5-; kyphoplasty L4: possible in situ fusion with bone graft Inhouse Planning DVT Prophylaxis: TEDs, SCDs
[2017-09-20] MEDS ORDERED: EpHEDrine SULFATE INJ 50 MG/ML AMP IV PRN (13:00)
[2017-09-20] MEDS ORDERED: ATROPINE SULFATE 0.1 MG/ML 5ML SYR IV PRN (13:00)
[2017-09-20] MEDS ORDERED: ONDANSETRON INJ 2 MG/ML 2 ML VIAL IV PRN ×2 (13:00→17:00)
[2017-09-20] MEDS ORDERED: HYDROmorphone INJ 2 MG/ML SYR/VIAL IV PRN (13:00)
[2017-09-20] MEDS ORDERED: PHENYLEPHRINE 100MCG/ML 5ML SYR IV PRN (13:00)
[2017-09-20] MEDS ORDERED: CONRAY 60% 50 ML VIAL ONE (13:59)
[2017-09-20] MEDS ORDERED: BUPIVACAINE/EPINEPHRINE 0.5% MPF 1:200,000 30 ML VIAL ONE (13:59)
[2017-09-20] MEDS ORDERED: MIDAZOLAM HCL 1 MG/ML 2ML VIAL ONE (14:10)
[2017-09-20] MEDS ORDERED: FENTANYL CITRATE INJ 50 MCG/1 ML 2 ML VIAL ONE (14:10)
[2017-09-20] MEDS ORDERED: BACITRACIN 50000 UNIT VIAL ONE (14:11)
--- NOTE | 2017-09-20 14:36 | Progress Note ---
Internal Med Progress Note Date of Service: Sep 20, 2017. Provider Documentation: SUBJECTIVE: Seen and examined at bedside Just returned from Surgery, still sleepy Reports back pain at surgical site Denies chest pain, SOB, dizziness Family at bedside Currently having dinner OBJECTIVE: Vital Signs-as noted below Physical Exam: Vitals signs as noted above General Appearance:Moderately built and nourished, no apparent distress Head: normocephalic, Atraumatic Eyes: normal inspection, EOMI, PERRL Neck: supple, Trachea midline Respiratory/Chest: Normal breath sounds, CTA Cardiovascular: S1, S2, No murmur Abdomen/GI:Soft, Non tender, Bowel sounds present Extremities/Musculoskelatal:normal inspection, chronic lymphedema, left ankle in sandie Neurologic/Psych:grossly no focal neurological deficits, Complete Neuro exam not performed as post OP Skin: normal color, warm Lab data as noted below. ASSESSMENT & PLAN: Intractable Back Pain: Acute L4 compression fracture Acute to subacute L3 inferior endplate fracture Severe central spinal stenosis L3-4 Severe neuroforaminal stenosis right L4-5 S/P L4 Kyphoplasty and L3-4, L4-5 decompression POD # 0 CT of lumber spine as below Compression fracture likely secondary to mechanical fall few days ago Appreciate Orthopedics help pain control; pain management consulted, appreciate recs Fall precautions Bowel regimen to prevent constipation PT/OT Left Ankle Fracture: recent fall stable, non displaced fracture of left lateral malleolus Continue splint pain control Hyponatremia: likely due to dehydration/poor PO intake in past 3 days due to severe back pain and ongoing diuretic use resolved monitor HTN: Stable Hold Bumex/Metolazone/Aldactone/Lisinopril for now Will resume as able monitor Chronic Right Heart failure: follows with Cardiology diuretics on hold, will resume as able RADHA: Continue nocturnal O2 Hyperlipidemia: continued Fenofibrate Osteoporosis: continue Evista, Calcium + vit D supplement DVT Px: Heparin SQ on Hold as Post OP Code Status: Need to be readdressed Disposition: May need Rehab placement PT/OT Cast Associate consulted Vital Signs: Date Time Temp Pulse Resp B/P (MAP) Pulse Ox O2 Delivery O2 Flow Rate FiO2 09/20/17 18:31 71 16 109/71 (84) 94 2.0 09/20/17 18:00 36.2 67 14 117/77 (90) 97 Nasal Cannula 4.0 09/20/17 18:00 97 Nasal Cannula 4.0 09/20/17 17:40 36.1 65 14 126/67 100 Nasal Cannula 4 09/20/17 17:30 63 12 118/61 100 Nasal Cannula 4 09/20/17 17:20 74 15 115/68 100 Oxymask 6 09/20/17 17:10 80 15 121/65 100 Oxymask 6 09/20/17 17:04 36.4 73 20 126/65 100 Oxymask 10 09/20/17 07:59 36.5 67 19 121/77 (92) 99 Room Air 09/20/17 07:45 Room Air 09/20/17 00:15 96 Room Air 2.0 09/19/17 23:12 36.9 63 18 122/74 (90) 96 Room Air Lab Results: Results Past 24 Hours Test 09/20/17 05:26 Range/Units Sodium Level 139 136-145 mmol/L Potassium Level 3.7 3.5-5.1 mmol/L Chloride Level 107 98-107 mmol/L Carbon Dioxide Level 26 21-32 mmol/L Anion Gap 6.0 3-11 mmol/L Blood Urea Nitrogen 17 7-18 mg/dl Creatinine 0.65 0.60-1.20 mg/dl Est Creatinine Clear Calc Drug Dose 79.6 ml/min Estimated GFR () 98.6 Estimated GFR (Non- 85.0 BUN/Creatinine Ratio 26.2 10-20 Random Glucose 102 70-99 mg/dl Calcium Level 10.1 8.5-10.1 mg/dl
--- NOTE | 2017-09-20 14:38 | History & Physical Bridge Note ---
H&P Re-Evaluation Bridge Note: I have examined the patient, reviewed the History & Physical and in the interval since the performance of the History & Physical I have noted the following changes of clinical significance: No changes noted possible kyphoplasty L3 with non-instrumented posterior lateral fusion L3 4 L4 5
[2017-09-20] MEDS ORDERED: CEFAZOLIN SOD 2000MG/15 ML IV PUSH IV ONE (14:46)
[2017-09-20] MEDS ORDERED: NURSING VERBAL MED ORDER STA (14:49)
[2017-09-20] MEDS ORDERED: ROCURONIUM BROMIDE 10 MG/ML 5 ML VIAL IV ONE (15:37)
[2017-09-20] MEDS ORDERED: ONDANSETRON INJ 2 MG/ML 2 ML VIAL ONE (15:37)
[2017-09-20] MEDS ORDERED: GLYCOPYRROLATE INJ 0.2 MG/ML VIAL ONE (15:37)
[2017-09-20] MEDS ORDERED: DEXAMETHASONE SOD INJ 4 MG/ML VIAL ONE (15:37)
[2017-09-20] MEDS ORDERED: EpHEDrine SULFATE 50MG/5ML SYR ONE (15:37)
[2017-09-20] MEDS ORDERED: PROPOFOL IV EMULSION 10 MG/ML 20 ML VIAL IV ONE (15:37)
[2017-09-20] MEDS ORDERED: LARYING-O-JET KIT (LTA) ONE (15:37)
[2017-09-20] MEDS ORDERED: PHENYLEPHRINE 100MCG/ML 5ML SYR ONE (15:37)
[2017-09-20] MEDS ORDERED: NEOSTIGMINE METHYLSULFATE 1 MG/ML 10ML VIAL ONE (15:37)
[2017-09-20] MEDS ORDERED: LIDOCAINE HCL 2% 2 ML VIAL (20MG/ML) ONE (15:37)
[2017-09-20] MEDS ORDERED: HYDROmorphone INJ 2 MG/ML SYR/VIAL ONE (15:40)
--- NOTE | 2017-09-20 16:49 | [facility] Operative Report ---
Operative Report Operative Date Sep 20, 2017. Pre-Operative Diagnosis Compression fracture L3-L4 and Lumbar Spinal Stenosis L3-L4, L4-L5 Post-Operative Diagnosis Compression fracture L3-L4 and Lumbar Spinal Stenosis L3-L4, L4-L5 Procedure(s) Performed #1 lumbar decompression medial facetectomies L3 4 L4 5. #2 posterior spinal fusion L3 4 L4 5. #3 kyphoplasty L3 4 and L4 5. Number for biopsy of the L3 and L4 vertebral body. #5 placed infuse collagen sponge combined with Master graft in the posterior lateral gutters. #6 placement of locally harvested morcellized autograft in the posterior lateral gutters. Surgeon Dr. Mitch Wan Hadoop Architect Surgeon(s) Alem Moya PA-C Findings Severe spinal stenosis Specimens Specimen A) L4 Vertebral Body for biopsy B) L3 Vertebral Body for biopsy Description of Procedure Patient was met with preoperatively case discussed all questions addressed. After informed consent obtained patient was taken to the operative suite and underwent intubation and placed in a prone position on the Kenny table on top of the Tha frame. All bony prominences were well-padded eyes inspected to ensure no external pressure placed upon them. This point the lumbar spine was prepped and draped in normal sterile fashion. Sharp dissection with the assistance of Bovie electrocautery was performed down to and exposing the lamina and transverse processes of L3-L4 5. I then performed a midline decompression including new facetectomies at L3 4 4 5. Patient was transferred severe central lateral recess stenosis. After this complete Kyphon working cannulas were placed by way of a trans-radicular approach into the vertebral body of L4. Verified our position with fluoroscopy. 2 core biopsies of L4 was then obtained. I then inserted 20 mm balloons and sequentially inflated with fluoroscopic visualization. Balloons were subsequently removed and approximately 3 mL of bony cement was injected under fluoroscopic visualization. This demonstrated interdigitation and fill of the voids. The apparatus was removed and I proceeded to L3. Again by way of a trans-radicular approach to Kyphon balloons were inserted and sequentially inflated. The removed and again 3 mL of Kyphon cement injected under fluoroscopic visualization. All working apparatus was removed. The transverse processes and lateral facets of L3 4 and 5 were burred to subcortical bleeding bone infuse collagen sponge Master graft locally harvested morcellized allograft was placed in the posterior gutters. 15 round JAYE drain inserted. The incision was then closed with 1 Vicryl in the fascia 2-0 Vicryl subcutaneously and 4-0 Monocryl for final skin closure. Steri-Strips and sterile dressings placed. Please note Alem Silva was present for the entire procedure involved in patient positioning complex portions of the surgery and final skin closure. I attest to the content of the Intraoperative Record and any orders documented therein. Any exceptions are noted below.
[2017-09-20] MEDS ORDERED: FLOSEAL HEMOSTATIC MATRIX 10ML TOP ONE (16:50)
[2017-09-20] MEDS ORDERED: LORAZEPAM 0.5 MG TAB PO PRN (17:00)
[2017-09-20] MEDS ORDERED: HYDROmorphone INJ 0.5 MG/0.5 ML SYR IV PRN (17:00)
[2017-09-20] MEDS ORDERED: DO NOT ADMINISTER PNEUMOCOCCAL VACCINE PRN (17:00)
[2017-09-20] MEDS ORDERED: PROMETHAZINE HCL INJ 12.5 MG in SODIUM CHLORIDE 0.9% 50ML 50 ML IV PRN (17:00)
[2017-09-20] MEDS ORDERED: ACETAMINOPHEN IV 100 ML IV PRN (17:00)
[2017-09-20] MEDS ORDERED: MAGNESIUM HYDROXIDE SUSP 30 ML UDC PO PRN (17:00)
[2017-09-20] MEDS ORDERED: ACETAMINOPHEN 500 MG TAB PO PRN (17:00)
[2017-09-20] MEDS ORDERED: FAMOTIDINE 20 MG TAB PO PRN (17:00)
[2017-09-20] MEDS ORDERED: NALOXONE HCL 0.4 MG/1 ML VIAL/CARP IV PRN (17:00)
[2017-09-20] MEDS ORDERED: SOD PHOSPHATE/SOD BIPHOSPHATE ENEMA 132 ML BTL PR PRN (17:00)
[2017-09-20] MEDS ORDERED: BISACODYL 10 MG SUPP PR PRN (17:00)
[2017-09-20] MEDS ORDERED: DO NOT ADMINISTER FLU VACCINE PRN (17:00)
[2017-09-20] MEDS ORDERED: LORAZEPAM INJ 0.5 MG in SYRINGE 0 ML IV PRN (17:00)
[2017-09-20] MEDS ORDERED: METOCLOPRAMIDE HCL INJ 5 MG/ML 2 ML VIAL IV PRN (17:00)
[2017-09-20] MEDS ORDERED: ALUMINUM/MAGNESIUM SUSP 30 ML UDC PO PRN (17:00)
[2017-09-20] MEDS ORDERED: hydrOXYzine HCL 25 MG TAB PO PRN (17:00)
[2017-09-20] MEDS: SODIUM CHLORIDE 0.9% 1000ML 1,000 ML IV SCH (20:05)
[2017-09-20] MEDS ORDERED: NURSING VERBAL MED ORDER ONE (20:15)
[2017-09-20] MEDS: DOCUSATE SODIUM/SENNA 50/8.6MG TAB PO SCH (21:10)
[2017-09-20] MEDS: CEFAZOLIN IV 2,000 MG in SYRINGE 5 ML IV SCH (23:15)
[2017-09-20] MEDS: OXYCODONE HCL IR 5 MG TAB (IMMEDIATE RELEASE) PO PRN (23:48)
[2017-09-21] VITALS (7 sets, daily range): BP systolic 102–122; BP diastolic 62–77; PULSE 80–93; TEMP 36.6–37.4; O2SAT 94–99
[2017-09-21] MEDS: SODIUM CHLORIDE 0.9% 1000ML 1,000 ML IV SCH ×2 (03:04→08:40)
[2017-09-21] MEDS ORDERED: OXYCODONE HCL IR 5 MG TAB (IMMEDIATE RELEASE) PO PRN (06:00)
[2017-09-21 07:23] LABS: BASO % 0.1 %; BASO ABS # 0.01 K/uL (0-0.2); IG# 0.03 K/uL (0.00-0.02); LYMPH % 9.9 %; LYMPH ABS # 1.04 K/uL (1.2-3.4); MEAN CELL VOLUME 95.8 fL (80-100); MEAN CORPUSCULAR HGB CONC 32.4 g/dl (32-36); MEAN PLATELET VOLUME 9.1 fL (7.4-10.4); MONO % 5.8 %; MONO ABS # 0.61 K/uL (0.11-0.59); NEUT % 83.9 %; NEUT ABS # 8.83 K/uL (1.4-6.5); PLATELET COUNT 249 K/uL (130-400); RED CELL DISTRIBUTION WIDTH CV 14.2 % (11.5-14.5); RED CELL DISTRIBUTION WIDTH SD 50.1 fL (36.4-46.3); WHITE BLOOD COUNT 10.52 K/uL (4.8-10.8)
[2017-09-21 07:59] LABS: CALCIUM 9.2 mg/dl (8.5-10.1); CREATININE 0.55 mg/dl (0.60-1.20)
[2017-09-21] MEDS: TRICOR~ORDER AWAITING ACTION SCH ×3 (08:00→23:09)
--- NOTE | 2017-09-21 08:38 | Progress Note ---
Progress Note Date of Service Sep 21, 2017. Progress Note Patient is postop day #1. Her back pain is improved. She still complaining of some right block discomfort. She feels that her leg symptoms overall are improved. On exam she stimulating with a walker. Recent strength testing. Assessment status post lumbar decompression and fusion with kyphoplasty. Plan at this time will continue physical therapy. She'll be fitted with an LSO brace today to be worn when up and amatory.
[2017-09-21] MEDS: DOCUSATE SODIUM 100 MG CAP PO SCH ×2 (09:14→21:15)
[2017-09-21] MEDS: VITAMIN B COMPLEX TAB PO SCH (09:16)
[2017-09-21] MEDS: RALOXIFENE 60 MG TAB PO SCH (09:16)
[2017-09-21] MEDS: CALCIUM CARBONATE 1250MG TAB PO SCH ×3 (09:16→21:15)
[2017-09-21] MEDS: CEROVITE ADV FORMULA TAB PO SCH ×2 (09:16→21:15)
[2017-09-21] MEDS: RANITIDINE HCL 150 MG TAB PO SCH ×2 (09:16→21:15)
[2017-09-21] MEDS: OMEGA-3 (PURIFIED FISH OIL) 1 GM CAP PO SCH ×3 (09:16→21:15)
[2017-09-21] MEDS: PSYLLIUM 58.6% PWD PACK S\\F PO SCH (09:17)
[2017-09-21] MEDS: OXYCODONE HCL IR 5 MG TAB (IMMEDIATE RELEASE) PO PRN (09:20)
[2017-09-21] MEDS: LIDODERM (LIDOCAINE) PATCH 5% TD SCH (09:20)
[2017-09-21] MEDS ORDERED: NURSING VERBAL MED ORDER ONE (09:30)
[2017-09-21] MEDS: CEFAZOLIN IV 2,000 MG in SYRINGE 5 ML IV SCH (09:32)
[2017-09-21] MEDS: ASPIRIN 81 MG CHEW PO SCH (09:50)
--- NOTE | 2017-09-21 13:11 | Progress Note ---
Internal Med Progress Note Date of Service: Sep 21, 2017. Provider Documentation: SUBJECTIVE: Seen and examined at bedside States having back pain/R hip pain Denies chest pain, SOB, dizziness, nausea Passing gas No other complaints OBJECTIVE: Vital Signs-as noted below Physical Exam: Vitals signs as noted above General Appearance:Moderately built and nourished, no apparent distress Head: normocephalic, Atraumatic Eyes: normal inspection, EOMI, PERRL Neck: supple, Trachea midline Respiratory/Chest: Normal breath sounds, CTA Cardiovascular: S1, S2, No murmur Back: Surgical site in bandage, +Drain Abdomen/GI:Soft, Non tender, Bowel sounds present Extremities/Musculoskelatal:normal inspection, chronic lymphedema, left ankle in sandie Neurologic/Psych:grossly no focal neurological deficits, Complete Neuro exam not performed as post OP Skin: normal color, warm Lab data as noted below. ASSESSMENT & PLAN: Intractable Back Pain: Acute L4 compression fracture Acute to subacute L3 inferior endplate fracture Severe central spinal stenosis L3-4 Severe neuroforaminal stenosis right L4-5 S/P L4 Kyphoplasty and L3-4, L4-5 decompression POD # 1 CT of lumber spine as below Compression fracture likely secondary to mechanical fall few days ago Appreciate Orthopedics help pain control; pain management consulted, appreciate recs Fall precautions Bowel regimen to prevent constipation PT/OT Monitor Hb Left Ankle Fracture: recent fall stable, non displaced fracture of left lateral malleolus pain control Hyponatremia: likely due to dehydration/poor PO intake in past 3 days due to severe back pain and ongoing diuretic use resolved monitor HTN: BP on lower side Hold Bumex/Metolazone/Aldactone/Lisinopril for now Will resume as able monitor Chronic Right Heart failure: follows with Cardiology diuretics on hold, will resume as able RADHA: Continue nocturnal O2 Hyperlipidemia: continued Fenofibrate Osteoporosis: continue Evista, Calcium + vit D supplement DVT Px: SCDs Plan to resume Heparin SQ if OK with Ortho Code Status: DNR Disposition: Need Rehab placement PT/OT 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 Vital Signs: Date Time Temp Pulse Resp B/P (MAP) Pulse Ox O2 Delivery O2 Flow Rate FiO2 09/21/17 12:13 36.7 80 16 108/62 (77) 99 Room Air 09/21/17 08:38 96 Room Air 09/21/17 08:29 36.6 86 18 122/68 (86) 96 Room Air 09/21/17 07:30 Room Air 09/21/17 03:44 36.6 90 16 104/65 (78) 94 Room Air 09/20/17 23:10 36.5 75 16 102/65 (77) 97 Room Air 09/20/17 21:00 36.6 86 16 126/78 (94) 98 Nasal Cannula 2.0 09/20/17 20:00 Nasal Cannula 4.0 09/20/17 19:58 36.3 85 16 108/69 (82) 100 Nasal Cannula 4.0 09/20/17 19:00 36.6 70 18 113/73 (86) 99 Nasal Cannula 09/20/17 18:31 71 16 109/71 (84) 94 2.0 09/20/17 18:00 36.2 67 14 117/77 (90) 97 Nasal Cannula 4.0 09/20/17 18:00 97 Nasal Cannula 4.0 09/20/17 17:40 36.1 65 14 126/67 100 Nasal Cannula 4 09/20/17 17:30 63 12 118/61 100 Nasal Cannula 4 09/20/17 17:20 74 15 115/68 100 Oxymask 6 09/20/17 17:10 80 15 121/65 100 Oxymask 6 09/20/17 17:04 36.4 73 20 126/65 100 Oxymask 10 Lab Results: Results Past 24 Hours Test 09/21/17 07:01 Range/Units White Blood Count 10.52 4.8-10.8 K/uL Red Blood Count 3.55 4.2-5.4 M/uL Hemoglobin 11.0 12.0-16.0 g/dL Hematocrit 34.0 37-47 % Mean Corpuscular Volume 95.8 80-100 fL Mean Corpuscular Hemoglobin 31.0 25-34 pg Mean Corpuscular Hemoglobin Concent 32.4 32-36 g/dl Platelet Count 249 130-400 K/uL Mean Platelet Volume 9.1 7.4-10.4 fL Neutrophils (%) (Auto) 83.9 % Lymphocytes (%) (Auto) 9.9 % Monocytes (%) (Auto) 5.8 % Eosinophils (%) (Auto) 0.0 % Basophils (%) (Auto) 0.1 % Neutrophils # (Auto) 8.83 1.4-6.5 K/uL Lymphocytes # (Auto) 1.04 1.2-3.4 K/uL Monocytes # (Auto) 0.61 0.11-0.59 K/uL Eosinophils # (Auto) 0.00 0-0.5 K/uL Basophils # (Auto) 0.01 0-0.2 K/uL RDW Standard Deviation 50.1 36.4-46.3 fL RDW Coefficient of Variation 14.2 11.5-14.5 % Immature Granulocyte % (Auto) 0.3 % Immature Granulocyte # (Auto) 0.03 0.00-0.02 K/uL Sodium Level 139 136-145 mmol/L Potassium Level 4.0 3.5-5.1 mmol/L Chloride Level 110 98-107 mmol/L Carbon Dioxide Level 25 21-32 mmol/L Anion Gap 4.0 3-11 mmol/L Blood Urea Nitrogen 12 7-18 mg/dl Creatinine 0.55 0.60-1.20 mg/dl Est Creatinine Clear Calc Drug Dose 94.1 ml/min Estimated GFR () 104.1 Estimated GFR (Non- 89.8 BUN/Creatinine Ratio 21.6 10-20 Random Glucose 101 70-99 mg/dl Calcium Level 9.2 8.5-10.1 mg/dl Magnesium Level 2.1 1.8-2.4 mg/dl
[2017-09-21] MEDS: HYDROCODONE/ACETAMIN 5/325MG TAB PO PRN ×2 (13:36→21:15)
[2017-09-21] MEDS: DOCUSATE SODIUM/SENNA 50/8.6MG TAB PO SCH (21:15)
[2017-09-22] MEDS: POLYETHYLENE (MIRALAX) 17 GM PACK PO SCH ×3 (05:31→18:18)
[2017-09-22 07:24] VITALS: BP 102/62; PULSE 85; TEMP 37.1; O2SAT 94
[2017-09-22 07:26] LABS: HEMOGLOBIN 10.8 g/dL (12.0-16.0); MEAN CELL VOLUME 95.7 fL (80-100); MEAN CORPUSCULAR HEMOGLOBIN 31.3 pg (25-34); MEAN CORPUSCULAR HGB CONC 32.7 g/dl (32-36); MEAN PLATELET VOLUME 9.7 fL (7.4-10.4); PLATELET COUNT 251 K/uL (130-400); RED CELL DISTRIBUTION WIDTH CV 14.6 % (11.5-14.5); RED CELL DISTRIBUTION WIDTH SD 50.8 fL (36.4-46.3); WHITE BLOOD COUNT 10.98 K/uL (4.8-10.8)
--- NOTE | 2017-09-22 07:37 | DIAGNOSTIC IMAGING REPORT ---
INTRAOPERATIVE RADIOGRAPHS CLINICAL HISTORY: L3 and L4 kyphoplasty. Fluoroscopy time: 182 seconds. FINDINGS: 2 spot fluoroscopic views of the lumbar spine are presented. Both images show evidence of kyphoplasty in the lumbar spine, reportedly at the L3 and L4 levels. Postoperative material is present posteriorly at the level of L5. There is no evidence of cement within the central canal. IMPRESSION: Intraoperative images from a kyphoplasty procedure of the lumbar spine as above. See operative report for detailed findings. Electronically signed by: Felipe Perera M.D. 09/20/2017 4:56 PM Dictated Date/Time: 09/20/2017 4:55 PM
[2017-09-22] MEDS: TRICOR~ORDER AWAITING ACTION SCH ×2 (07:41→15:34)
[2017-09-22] MEDS: DOCUSATE SODIUM 100 MG CAP PO SCH ×2 (07:41→20:54)
[2017-09-22] MEDS: RANITIDINE HCL 150 MG TAB PO SCH ×2 (07:41→20:54)
[2017-09-22] MEDS: CEROVITE ADV FORMULA TAB PO SCH ×2 (07:41→20:54)
[2017-09-22] MEDS: CALCIUM CARBONATE 1250MG TAB PO SCH ×3 (07:41→20:54)
[2017-09-22] MEDS: VITAMIN B COMPLEX TAB PO SCH (07:42)
[2017-09-22] MEDS: RALOXIFENE 60 MG TAB PO SCH (07:42)
[2017-09-22] MEDS: LIDODERM (LIDOCAINE) PATCH 5% TD SCH (07:43)
[2017-09-22] MEDS: OMEGA-3 (PURIFIED FISH OIL) 1 GM CAP PO SCH ×3 (07:43→21:00)
[2017-09-22] MEDS: ASPIRIN 81 MG CHEW PO SCH (07:53)
[2017-09-22] MEDS: HYDROCODONE/ACETAMIN 5/325MG TAB PO PRN ×2 (07:53→16:41)
[2017-09-22 08:02] LABS: CREATININE 0.63 mg/dl (0.60-1.20); POTASSIUM 3.8 mmol/L (3.5-5.1)
[2017-09-22] MEDS: PSYLLIUM 58.6% PWD PACK S\\F PO SCH (08:36)
--- NOTE | 2017-09-22 08:37 | Orthopedic Progress Note ---
Orthopedic Progress Note Date of Service Sep 22, 2017. Subjective Post OP Day: 2 Reports: feeling well Additional Notes: Patient's radicular pain has greatly improved. Back pain is modest. H&H is 10.8 and 33.0 actively. History and physical therapy she walked 37 feet. She has received rigid [place] LSO brace to be worn with activity. Objective calves soft nontender, N/V intact, dressing C/D/I, A&O x3, toes mobile She is in the room and standing with a walker. LSO brace is intact. Dressing is clean dry and intact. Calves are soft and nontender. Date Time Temp Pulse Resp B/P (MAP) Pulse Ox O2 Delivery O2 Flow Rate FiO2 09/22/17 07:24 37.1 85 16 102/62 (75) 94 Room Air 09/21/17 23:12 37.4 93 18 102/65 (77) 97 Room Air 09/21/17 19:20 Room Air 09/21/17 15:37 Room Air 09/21/17 15:16 36.8 85 18 117/77 (90) 96 Room Air 09/21/17 13:54 88 98 09/21/17 12:13 36.7 80 16 108/62 (77) 99 Room Air 09/21/17 08:38 96 Room Air Laboratory Results 24 Hours: Test 09/22/17 06:44 Hematocrit 33.0 % Hemoglobin 10.8 g/dL Assessment & Plan Assessment: acute L4 compression fracture, acute to subacute L3 inferior endplate fracture severe central spinal stenosis L3-4 severe neuroforaminal stenosis right L4-5 Plan: options have been reviewed with patient including surgery pt wants to proceed with planned surgery today--posterior lumbar decompression L3-4,L4-5-; kyphoplasty L4: possible in situ fusion with bone graft Patient will follow up in office about 2 weeks postop. No lifting over 5 pounds. Please wear her TLSO brace with activity. She should be stable for discharge within the next 24 hours from an orthopedic standpoint. Inhouse Planning DVT Prophylaxis: TEDs, SCDs
[2017-09-22 08:49] VITALS: BP 116/71; PULSE 96; O2SAT 96
[2017-09-22 15:08] VITALS: BP 112/68; PULSE 90; TEMP 37; O2SAT 99
--- NOTE | 2017-09-22 16:34 | Progress Note ---
Internal Med Progress Note Date of Service: Sep 22, 2017. Provider Documentation: SUBJECTIVE: Seen and examined at bedside Back pain is much improved Had PT today Denies chest pain, SOB, dizziness, nausea Passing gas, No BM yet No other complaints OBJECTIVE: Vital Signs-as noted below Physical Exam: Vitals signs as noted above General Appearance:Moderately built and nourished, no apparent distress Head: normocephalic, Atraumatic Eyes: normal inspection, EOMI, PERRL Neck: supple, Trachea midline Respiratory/Chest: Normal breath sounds, CTA Cardiovascular: S1, S2, No murmur Back: Surgical site in bandage, +Drain Abdomen/GI:Soft, Non tender, Bowel sounds present Extremities/Musculoskelatal:normal inspection, chronic lymphedema, left ankle in sandie Neurologic/Psych:grossly no focal neurological deficits, Complete Neuro exam not performed as post OP Skin: normal color, warm Lab data as noted below. ASSESSMENT & PLAN: Intractable Back Pain: Acute L4 compression fracture Acute to subacute L3 inferior endplate fracture Severe central spinal stenosis L3-4 Severe neuroforaminal stenosis right L4-5 S/P L4 Kyphoplasty and L3-4, L4-5 decompression POD # 2 CT of lumber spine as below Compression fracture likely secondary to mechanical fall few days ago Appreciate Orthopedics help pain control; pain management consulted, appreciate recs Fall precautions Continue Bowel regimen PT/OT Monitor Hb Left Ankle Fracture: recent fall stable, non displaced fracture of left lateral malleolus pain control Hyponatremia: likely due to dehydration/poor PO intake in past 3 days due to severe back pain and ongoing diuretic use resolved monitor HTN: Bp better but still low Hold Bumex/Metolazone/Aldactone/Lisinopril for now monitor Chronic Right Heart failure: follows with Cardiology diuretics on hold, will resume as able RADHA: Continue nocturnal O2 Hyperlipidemia: continued Fenofibrate Osteoporosis: continue Evista, Calcium + vit D supplement DVT Px: SCDs for now Code Status: DNR Disposition: Need Rehab placement PT/OT Research Physiologist consulted Vital Signs: Date Time Temp Pulse Resp B/P (MAP) Pulse Ox O2 Delivery O2 Flow Rate FiO2 09/22/17 15:15 Room Air 09/22/17 15:08 37.0 90 16 112/68 (83) 99 Room Air 09/22/17 08:49 96 96 09/22/17 07:40 Room Air 09/22/17 07:24 37.1 85 16 102/62 (75) 94 Room Air 09/21/17 23:12 37.4 93 18 102/65 (77) 97 Room Air 09/21/17 19:20 Room Air Lab Results: Results Past 24 Hours Test 09/22/17 06:44 Range/Units White Blood Count 10.98 4.8-10.8 K/uL Red Blood Count 3.45 4.2-5.4 M/uL Hemoglobin 10.8 12.0-16.0 g/dL Hematocrit 33.0 37-47 % Mean Corpuscular Volume 95.7 80-100 fL Mean Corpuscular Hemoglobin 31.3 25-34 pg Mean Corpuscular Hemoglobin Concent 32.7 32-36 g/dl RDW Standard Deviation 50.8 36.4-46.3 fL RDW Coefficient of Variation 14.6 11.5-14.5 % Platelet Count 251 130-400 K/uL Mean Platelet Volume 9.7 7.4-10.4 fL Sodium Level 140 136-145 mmol/L Potassium Level 3.8 3.5-5.1 mmol/L Chloride Level 110 98-107 mmol/L Carbon Dioxide Level 24 21-32 mmol/L Anion Gap 7.0 3-11 mmol/L Blood Urea Nitrogen 13 7-18 mg/dl Creatinine 0.63 0.60-1.20 mg/dl Est Creatinine Clear Calc Drug Dose 82.2 ml/min Estimated GFR () 99.6 Estimated GFR (Non- 85.9 BUN/Creatinine Ratio 20.8 10-20 Random Glucose 120 70-99 mg/dl Calcium Level 10.0 8.5-10.1 mg/dl
[2017-09-22] MEDS: DOCUSATE SODIUM/SENNA 50/8.6MG TAB PO SCH (20:54)
[2017-09-22 23:35] VITALS: BP 114/68; PULSE 84; TEMP 37.1; O2SAT 97
[2017-09-23] MEDS: POLYETHYLENE (MIRALAX) 17 GM PACK PO SCH ×3 (05:21→11:44)
[2017-09-23] MEDS: HYDROCODONE/ACETAMIN 5/325MG TAB PO PRN ×2 (05:26→15:55)
[2017-09-23 06:30] LABS: HEMATOCRIT 31.2 % (37-47); HEMOGLOBIN 10.4 g/dL (12.0-16.0)
[2017-09-23 07:09] LABS: CALCIUM 10.2 mg/dl (8.5-10.1); CREATININE 0.53 mg/dl (0.60-1.20); POTASSIUM 3.9 mmol/L (3.5-5.1)
[2017-09-23 07:14] VITALS: BP 97/61; PULSE 79; TEMP 37.4; O2SAT 94
[2017-09-23] MEDS: TRICOR~ORDER AWAITING ACTION SCH ×3 (08:00→15:45)
[2017-09-23] MEDS: CEROVITE ADV FORMULA TAB PO SCH (08:53)
[2017-09-23] MEDS: PSYLLIUM 58.6% PWD PACK S\\F PO SCH (08:53)
[2017-09-23] MEDS: DOCUSATE SODIUM 100 MG CAP PO SCH (08:53)
[2017-09-23] MEDS: RALOXIFENE 60 MG TAB PO SCH (08:53)
[2017-09-23] MEDS: VITAMIN B COMPLEX TAB PO SCH (08:54)
[2017-09-23] MEDS: OMEGA-3 (PURIFIED FISH OIL) 1 GM CAP PO SCH ×2 (08:54→13:38)
[2017-09-23] MEDS: CALCIUM CARBONATE 1250MG TAB PO SCH ×2 (08:54→13:38)
[2017-09-23] MEDS: RANITIDINE HCL 150 MG TAB PO SCH (08:55)
[2017-09-23] MEDS: LIDODERM (LIDOCAINE) PATCH 5% TD SCH (08:56)
[2017-09-23] MEDS: ASPIRIN 81 MG CHEW PO SCH (09:14)
--- NOTE | 2017-09-23 12:15 | Progress Note ---
Progress Note Date of Service Sep 23, 2017. Progress Note Patient states her back pain is controlled. She has some tenderness to the right thigh but overall her leg symptoms are markedly improved. On exam she is sitting in a chair at the bedside. His regional strength testing. Does have some tenderness to palpation of the right greater trochanter and IT band. Assessment status post decompression kyphoplasty. Planta's time we will DC her drain today. She is stable for orthopedic discharge.
--- NOTE | 2017-09-23 13:19 | Progress Note ---
Internal Med Progress Note Date of Service: Sep 23, 2017. Provider Documentation: SUBJECTIVE: Seen and examined at bedside Doing well today Back pain is controlled Had BM today Denies chest pain, SOB, dizziness, nausea No other complaints Drain discontinued OBJECTIVE: Vital Signs-as noted below Physical Exam: Vitals signs as noted above General Appearance:Moderately built and nourished, no apparent distress Head: normocephalic, Atraumatic Eyes: normal inspection, EOMI, PERRL Neck: supple, Trachea midline Respiratory/Chest: Normal breath sounds, CTA Cardiovascular: S1, S2, No murmur Back: Surgical site in bandage Abdomen/GI:Soft, Non tender, Bowel sounds present Extremities/Musculoskelatal:normal inspection, chronic lymphedema, left ankle in sandie Neurologic/Psych:grossly no focal neurological deficits, Complete Neuro exam not performed as post OP Skin: normal color, warm Lab data as noted below. ASSESSMENT & PLAN: Intractable Back Pain: Acute L4 compression fracture Acute to subacute L3 inferior endplate fracture Severe central spinal stenosis L3-4 Severe neuroforaminal stenosis right L4-5 S/P L4 Kyphoplasty and L3-4, L4-5 decompression POD # 3 CT of lumber spine as below Compression fracture likely secondary to mechanical fall few days ago Appreciate Orthopedics help pain control; pain management consulted, appreciate recs Fall precautions Continue Bowel regimen PT/OT Monitor Hb Left Ankle Fracture: recent fall stable, non displaced fracture of left lateral malleolus pain control Hyponatremia: likely due to dehydration/poor PO intake in past 3 days due to severe back pain and ongoing diuretic use resolved monitor HTN: BP on lower side Plan to resume Bumex/Metolazone/Aldactone/Lisinopril when BP better monitor Chronic Right Heart failure: follows with Cardiology diuretics on hold, will resume as able RADHA: Continue nocturnal O2 Hyperlipidemia: continued Fenofibrate Osteoporosis: continue Evista, Calcium + vit D supplement DVT Px: SCDs for now Code Status: DNR Disposition: Plan to discharge to Rehab today Follow up with Dheeraj Ramirez PA-C for Primary Care 1 week after being discharged from [facility] Follow up with your Orthopedic Surgeon in 1 week as advised Seek immediate medical attention if your symptoms reoccur or worsen Vital Signs: Date Time Temp Pulse Resp B/P (MAP) Pulse Ox O2 Delivery O2 Flow Rate FiO2 09/23/17 07:25 Room Air 09/23/17 07:14 37.4 79 18 97/61 (73) 94 Room Air 09/22/17 23:35 37.1 84 18 114/68 (83) 97 Room Air 09/22/17 23:20 Room Air 09/22/17 15:15 Room Air 09/22/17 15:08 37.0 90 16 112/68 (83) 99 Room Air Lab Results: Results Past 24 Hours Test 09/23/17 06:10 Range/Units Hemoglobin 10.4 12.0-16.0 g/dL Hematocrit 31.2 37-47 % Sodium Level 136 136-145 mmol/L Potassium Level 3.9 3.5-5.1 mmol/L Chloride Level 107 98-107 mmol/L Carbon Dioxide Level 25 21-32 mmol/L Anion Gap 4.0 3-11 mmol/L Blood Urea Nitrogen 13 7-18 mg/dl Creatinine 0.53 0.60-1.20 mg/dl Est Creatinine Clear Calc Drug Dose 97.7 ml/min Estimated GFR () 105.4 Estimated GFR (Non- 90.9 BUN/Creatinine Ratio 24.2 10-20 Random Glucose 116 70-99 mg/dl Calcium Level 10.2 8.5-10.1 mg/dl
[2017-09-23] MEDS ORDERED: LDDP5 TD (13:30)
[2017-09-23] MEDS ORDERED: CLC100 PO (13:30)
[2017-09-23] MEDS ORDERED: MRLP17 PO (13:30)
[2017-09-23] MEDS ORDERED: HYDR-5688 PO (13:30)
--- NOTE | 2017-09-23 13:35 | Discharge Summary ---
Discharge Summary Date of Service Sep 23, 2017. Discharge Summary Admission Date: Sep 18, 2017 at 13:31 Discharge Date: Sep 23, 2017 Discharge Disposition: Rehab Principal Diagnosis: Chronic Back Pain, Lumbar Compression Fx S/P L4 Kyphoplasty and L3-4, L4-5 decompression Secondary Diagnoses/Problems: Left Ankle Fracture Procedures: S/P L4 Kyphoplasty and L3-4, L4-[address]: No acute fracture within the pelvis or hips. No pelvic hematoma. Lumbar CT: 1. Moderate to severe L4 compression fracture with 60% loss of vertebral body height. This fracture is likely acute to subacute. 8 mm of retropulsion at this level in conjunction with ligamentous hypertrophy and facet arthrosis result in severe narrowing of the central canal. 2. Old mild L1 compression fracture. 3. Age indeterminate mild L3 compression fracture. 4. Multilevel degenerative disc disease and facet arthrosis, most pronounced at the L3-L4 and L4-L5 levels. Head CT: 1. No acute intracranial findings. 2. No calvarial fracture. Venous Doppler: No DVT within the right or left lower extremity Consultations: Orthopedics Pending Studies/Follow-Up: Follow up with Dheeraj Ramirez PA-C for Primary Care 1 week after being discharged from [facility] Follow up with your Orthopedic Surgeon in 1 week as advised YOUR BLOOD PRESSURE MEDICATIONS (Bumex/Metolazone/Aldactone/Lisinopril) WERE HELD DURING HOSPITALIZATION. Please resume when your blood pressure is improved. Seek immediate medical attention if your symptoms reoccur or worsen Medication Reconciliation New Medications: Docusate Sodium (Docusate Sodium) 100 Mg Cap 100 MG PO BID for 7 Days, #14 CAP Hydrocodone/Acetaminophen 5MG/325MG ([place] 5MG/325MG) Tab 1 TAB PO Q4H PRN for Pain for 3 Days, TAB PRN PAIN Lidocaine (Lidocaine) 1 Patch Tdsy 2 PATCH TD QAM for 5 Days, #10 EA Polyethylene (Miralax) 17 Gm Pow 17 GM PO DAILY PRN for Constipation for 7 Days, #7 EA Continued Medications: Aspirin (Aspirin Chewable) 81 Mg Chew 81 MG PO DAILY, TAB B-Complex Vitamins (Vitamin B Complex) 1 Tab Tab 1 TAB PO DAILY Bumetanide (Bumex) 2 Mg Tab 2 MG PO TID, TAB Calcium Carbonate (Os-Manuel 500) 1,250 Mg Tab 500 MG PO TID, TAB Fenofibrate Micronized (Tricor) 134 Mg Cap 134 MG PO DAILY, CAP Garlic (Garlic) 1,000 Mg Cap 1 CAP PO DAILY Home O2 Therapy (Oxygen) Gas 2 LITERS NA HS Lisinopril (Lisinopril) 2.5 Mg Tab 5 MG PO DAILY, TAB Metolazone (Zaroxolyn) 2.5 Mg Tab 2.5 MG PO 2XWK, TAB *THURSDAYS & SUNDAYS* Multivitamins/Minerals (Mvi With Minerals) Tab 1 TAB PO DAILY, TAB Ocuvite Preservision (Ocuvite Preservision) 1 Tab Tab 1 TAB PO BID, TAB Wall-3 Fatty Acids (Fish Oil) 1 Cap Cap 1 CAP TID Potassium Ext Rel (Klor-Con) 20 Meq Tabcr 20 MEQ PO TID, TAB Psyllium (Metamucil) 48.57 % Pow 1 TSP PO DAILY Raloxifene Hcl (Evista) 60 Mg Tab 60 MG PO DAILY, TAB Ranitidine (Zantac) 150 Mg Tab 150 MG PO BID, TAB Spironolactone (Aldactone) 50 Mg Tab 50 MG PO BID, TAB Admission Information HPI (per Admitting provider): 77 yo F hx of HTN , chronic rt heart failure, chronic bilateral lower ext venous status edema, lymphedema , osteoporosis, dyslipidemia -was seen in ER 3 days back has she fell and had non displaced Fx of her Left ankle , pt was discharged form ER with pain meds and instructed for out pt follow up with Family physician pt has chronic hip pain with Sciatica , was seen by Dr [facility] 1 week back , was recommended to follow with pain management Dr Shah have not had appointment with pain management yet pt's felt worsening of back pain after the fall , on ER discharge -pt had to had van driver to help her get into house She lives alone , has been independent in her ADL's since the fall she has been using a walker , her mobility was very limited due to excruciating back pain 8-10/10 worse with sitting , movement had not been able to eat or drink enough in last 3 days , unable to sit up / arrange or cook meals due to back pain did not sustain any fall since in today's ER visit : CT of lumber spine shows : Moderate to severe L4 compression fracture with 60% loss of vertebral body height. This fracture is likely acute to subacute. 8 mm of retropulsion at this level in conjunction with ligamentous hypertrophy and facet arthrosis result in severe narrowing of the central canal. ER physician discussed the case with rehabilitation case coordinator spinal Orthopedics Dr Wan pt will be admitted to Medicine service for pain management Ortho will evaluate the pt tomorrow Physical Exam (per Admitting): General Appearance: no apparent distress Head: normocephalic, atraumatic Eyes: normal inspection, sclerae normal ENT: normal ENT inspection Neck: supple, thyroid normal, no carotid bruits, trachea midline Respiratory/Chest: chest non-tender, lungs clear, normal breath sounds, no respiratory distress Cardiovascular: regular rate, rhythm, no edema, no JVD, normal peripheral pulses Abdomen/GI: normal bowel sounds, non tender, soft Extremities/Musculoskelatal: normal capillary refill, + pedal edema (+ 2 bilateral chronic edema /lumphadenopathy ), + pertinent finding (left ankle in bandage , no swelling noted, limited movement at joint due to pain , /Point tenderness in low back above sacral area /no swelling or redness noted ) Neurologic/Psych: no motor/sensory deficits, alert, oriented x 3 Skin: normal color, warm/dry, no rash Hospital Course Intractable Back Pain: Acute L4 compression fracture Acute to subacute L3 inferior endplate fracture Severe central spinal stenosis L3-4 Severe neuroforaminal stenosis right L4-5 S/P L4 Kyphoplasty and L3-4, L4-5 decompression POD # 3 CT of lumber spine as below Compression fracture likely secondary to mechanical fall few days ago Appreciate Orthopedics help pain control; pain management consulted, appreciate recs Fall precautions Continue Bowel regimen PT/OT Monitor Hb Left Ankle Fracture: recent fall stable, non displaced fracture of left lateral malleolus pain control Hyponatremia: likely due to dehydration/poor PO intake in past 3 days due to severe back pain and ongoing diuretic use resolved monitor HTN: BP on lower side Plan to resume Bumex/Metolazone/Aldactone/Lisinopril when BP better monitor Chronic Right Heart failure: follows with Cardiology diuretics on hold, will resume as able RADHA: Continue nocturnal O2 Hyperlipidemia: continued Fenofibrate Osteoporosis: continue Evista, Calcium + vit D supplement DVT Px: SCDs for now Code Status: DNR Disposition: Plan to discharge to Rehab today Follow up with Dheeraj Ramirez PA-C for Primary Care 1 week after being discharged from [facility] Follow up with your Orthopedic Surgeon in 1 week as advised Seek immediate medical attention if your symptoms reoccur or worsen Total time spent on discharge = 36 minutes This includes examination of the patient, discharge planning, medication reconciliation, and communication with other providers. Discharge Instructions Discharge Instructions Date of Service Sep 23, 2017. Admission Reason for Admission: Chronic Back Pain, Lumbar Compression Fx Discharge Discharge Diagnosis / Problem: Chronic Back Pain, Lumbar Compression Fx Discharge Goals Goal(s): Decrease discomfort, Improve function Activity Recommendations Activity Limitations: per Instructions/Follow-up section Lifting Limitations: gradually increase as tolerated Exercise/Sports Limitations: gradually increase as tolerated . Instructions / Follow-Up Instructions / Follow-Up Follow up with Dheeraj Ramirez PA-C for Primary Care 1 week after being discharged from [facility] Follow up with your Orthopedic Surgeon in 1 week as advised YOUR BLOOD PRESSURE MEDICATIONS (Bumex/Metolazone/Aldactone/Lisinopril) WERE HELD DURING HOSPITALIZATION. Please resume when your blood pressure is improved. Seek immediate medical attention if your symptoms reoccur or worsen Current Hospital Diet Patient's current hospital diet: AHA Diet (Heart Healthy) Discharge Diet Recommended Diet: AHA Diet (Heart Healthy) Procedures Procedures Performed: #1 lumbar decompression medial facetectomies L3 4 L4 5. #2 posterior spinal fusion L3 4 L4 5. #3 kyphoplasty L3 4 and L4 5. Number for biopsy of the L3 and L4 vertebral body. #5 placed infuse collagen sponge combined with Master graft in the posterior lateral gutters. #6 placement of locally harvested morcellized autograft in the posterior lateral gutters. Pending Studies Studies pending at discharge: no Medical Emergencies . Who to Call and When: Medical Emergencies: If at any time you feel your situation is an emergency, please call 911 immediately. . Non-Emergent Contact Non-Emergency issues call your: Primary Care Provider, Surgeon Call Non-Emergent contact if: you have a fever, your pain is not controlled, your pain is worsening, your pain is unusual for you, your pain is concerning you, you have any medication questions Seek immediate medical attention if your symptoms reoccur or worsen . . "Provider Documentation" section prepared by Garland Noriega. . VTE Core Measure Inpt VTE Proph given/why not?: Unfractionated heparin SQ
[2017-09-23 15:10] VITALS: BP_SYST 142; BP_SYST 97; BP_DIAS 61; BP_DIAS 75; PULSE 79; PULSE 83; TEMP 36.5; TEMP 37.4; O2SAT 94; O2SAT 97
== END 2017-09-23 17:23 | DRG 460 ==
LOC: EDBD 11:13 → C.EDB 11:14 → C.MSN 13:31 → ENRESERV 15:12
PROVIDERS: ADMIT Hospitalist; ATTEND Internal Medicine
PROC: 0SG1071 Fusion of 2 or more Lumbar Vertebral Joints with Autologous Tissue Substitute, Posterior Approach, Posterior Column, Open Approach (ICD-10-PCS; principal; 2017-09-20 07:00)
DX: M84.48XA Pathological fracture, other site, initial encounter for fracture (principal); Z68.41 Body mass index [BMI] 40.0-44.9, adult; E87.1 Hypo-osmolality and hyponatremia; M48.061 Spinal stenosis, lumbar region without neurogenic claudication; K21.9 Gastro-esophageal reflux disease without esophagitis; I11.0 Hypertensive heart disease with heart failure; G89.29 Other chronic pain; M54.9 Dorsalgia, unspecified; E78.5 Hyperlipidemia, unspecified; E66.01 Morbid (severe) obesity due to excess calories; G47.33 Obstructive sleep apnea (adult) (pediatric); M81.0 Age-related osteoporosis without current pathological fracture; I50.9 Heart failure, unspecified; Z66 Do not resuscitate; Z99.81 Dependence on supplemental oxygen; Z79.82 Long term (current) use of aspirin; W19.XXXA Unspecified fall, initial encounter

== ENCOUNTER 2022-03-16 19:00 | Observation (INO) ==
[2022-03-16] MEDS ORDERED: ASPIRIN CHEW 324 MG PO STA (19:34)
[2022-03-16 20:10] LABS: Basophils # (auto) 0.04 K/uL (0-0.2); Basophils % (auto) 0.8 %; Eosinophils # (auto) 0.07 K/uL (0-0.50); Eosinophils % (auto) 1.4 %; Hematocrit (blood only) 41.6 % (34.1-44.9); Hemoglobin 13.7 g/dl (12.0-16.0); Immature Granulocytes # (auto) 0.07 K/uL (0.00-0.02); Immature Granulocytes % (auto) 1.4 %; Mean Corpuscular Hemoglobin 30.5 pg (25.0-34.0); Mean Corpuscular Hgb Conc 32.9 g/dL (32.0-36.0); Mean Corpuscular Volume 92.7 fL (80.0-100.0); Mean Platelet Volume 10.4 fL (9.4-12.3); Monocytes # (auto) 0.63 K/uL (0.24-0.82); Neutrophils # (auto) 2.62 K/uL (1.4-6.5); Neutrophils % (auto) 54.4 %; Platelet Count 372 K/uL (130-400); RDW Coefficient of Variation 14.9 % (11.5-14.5); RDW Standard Deviation 51.1 fL (36.4-46.3); Red Blood Count 4.49 M/uL (3.93-5.22); White Blood Count 4.83 K/ul (4.8-10.8)
[2022-03-16 20:28] LABS: Partial Thromboplastin Ratio 0.9; Partial Thromboplastin Time 24.4 Seconds (21.0-31.0); Prothrombin Time 10.9 Seconds (9.0-12.0)
--- NOTE | 2022-03-16 20:31 | XRay Report ---
XR chest 1V portable CLINICAL HISTORY: Chest Pain. COMPARISON STUDY: 12/30/2019 TECHNIQUE: 1 view of the chest FINDINGS: Single frontal view of the chest demonstrates the heart to again be enlarged. There is a decreased in spiratory effort with elevation of the hemidiaphragms and crowding of the bronchovascular markings at the lung bases and centrally. Linear scarring is seen at the right lung base. The lungs are clear of alveolar opacities. There is no evidence for pleural effusion. There is no evidence for vascular con gestion. There is no acute osseous pathology. IMPRESSION: 1. There is a decreased inspiratory effort with otherwise no acute chest disease. ACT 112: Negative or not required by law. Electronically signed by: Juwan Gaming M.D. 03/16/2022 8:30 PM
[2022-03-16 20:35] LABS: D Dimer 720 ug/L FEU (0-500)
[2022-03-16 20:37] LABS: BUN Creatinine Ratio 27.4 (10-20); Calcium 9.8 mg/dl (8.5-10.1); Creatinine Clr Calc Pharmacy 44.9 ml/min; Est GFR (African American) 52.4 ml/min; Est GFR (Non-African American) 45.2 ml/min; Potassium 3.5 mmol/L (3.5-5.1)
[2022-03-16 20:39] LABS: Troponin I High Sensitivity 13.1 pg/ml (0-14)
[2022-03-16] MEDS ORDERED: OPTIRAY 320 125ml IV ONE (21:30)
--- NOTE | 2022-03-16 22:31 | Emergency Department Note ---
History of Present Illness General Chief Complaint: Cardiac Assessment Stated Complaint: chest pain Time Seen by Provider: 03/16/22 19:32 History of Present Illness Provider Complaint: chest pain Onset (ago): day(s) 1 Duration: now resolved Onset: during rest Pain Location: substernal Pain Radiation: none Severity: mild Current Pain Intensity: 0 Quality: + aching and + heaviness Relieved By: + nitroglycerin Exacerbated By: + nothing Context: no recent illness, no recent surgery, no recent immobilization, no recent travel, no trauma/injury, no new medications or no history of DVT/PE Associated symptoms: + palpitations; no nausea, no dyspnea, no syncope, no fever or no leg swelling Home Medications Medication Instructions Recorded Confirmed Type aspirin 81 mg tablet,delayed 81 mg PO QAM 05/05/18 03/16/22 History release omega 9-yji-otu-fish oil 1,000 mg 1 cap PO TIDM 05/05/18 03/16/22 History (120 mg-180 mg) capsule (Fish Oil) raloxifene 60 mg tablet 60 mg PO QAM osteoporosis 05/05/18 03/16/22 History bumetanide 2 mg tablet 2 mg PO TIDM 12/30/19 03/16/22 History cholecalciferol (vitamin D3) 10 20 mcg PO QAM 12/30/19 03/16/22 History mcg (400 unit) tablet (Vitamin D3) docusate sodium 100 mg capsule 100 mg PO BIDM 12/30/19 03/16/22 History fenofibrate 160 mg tablet 160 mg PO PM 12/30/19 03/16/22 History metolazone 2.5 mg tablet 2.5 mg PO 3XWK edema 12/30/19 03/16/22 History omeprazole 40 mg capsule,delayed 40 mg PO QAM 12/30/19 03/16/22 History release dextromethorphan-guaifenesin 10 10 ml PO Q4H PRN Cough 03/16/22 03/16/22 History mg-100 mg/5 mL oral liquid (Tussin DM) diclofenac sodium 1 % topical gel 4 g topical BID PRN Pain 03/16/22 03/16/22 History escitalopram oxalate 5 mg tablet 5 mg PO DAILY 03/16/22 03/16/22 History (Lexapro) ferrous sulfate 142 mg (45 mg 142 mg PO DAILY 03/16/22 03/16/22 History iron) tablet,extended release (Slow Fe) lorazepam 0.5 mg tablet 0.5 mg PO HS 03/16/22 03/16/22 History potassium chloride 40 mEq/15 mL 40 meq PO ACHS 03/16/22 03/16/22 History oral liquid psyllium husk 3 gram/5.4 gram oral 1 tbsp PO DAILY PRN Constipation 03/16/22 03/16/22 History powder (Reguloid (psyllium husk)) ropinirole 0.5 mg tablet 1.5 mg PO QDL 03/16/22 03/16/22 History ropinirole 2 mg tablet 2 mg PO QDL 03/16/22 03/16/22 History spironolactone 50 mg tablet See Rx Instructions .Route .COMPLEX 03/16/22 03/16/22 History vit C 250 mg-vit E 90 mg-zinc 40 1 tab PO BIDM 03/16/22 03/16/22 History mg-copper 1 ty-whospy-gadsch capsule (PreserVision AREDS-2) Allergies Allergy/AdvReac Type Severity Reaction Status Date / Time demeclocycline Allergy Unknown ON Verified 03/16/22 21:12 [facility] sulfamethoxazole Allergy Unknown ON Verified 03/16/22 21:12 [facility] trimethoprim Allergy Unknown ON Verified 03/16/22 21:12 [facility] Past Med/Surg History Medical History (Updated 03/16/22 @ 22:37 by Thanh Damon) Acute hip pain Chronic acquired lymphedema Chronic back pain Chronic GERD Cor pulmonale (chronic) Dependence on nocturnal oxygen therapy Dyslipidemia HTN (hypertension) Lumbar stenosis with neurogenic claudication Mitral valve prolapse Morbid obesity with BMI of 40.0-44.9, adult Nocturnal hypoxia RADHA (obstructive sleep apnea) Osteoporosis Right heart failure Right-sided congestive heart failure Sacral insufficiency fracture Surgical History Hx of cholecystectomy Status post appendectomy Status post cataract surgery Status post kyphoplasty L3, L4, L5 2017 Dr. Wan Status post lumbar spine surgery for decompression of spinal cord 2017 Dr. Wan Status post tonsillectomy Family History Father Family history of colon cancer Brother Family history of prostate cancer Brother Family history of coronary artery disease Sister Family history of coronary artery disease Brother Family history of diabetes mellitus Social History Smoking Status: Never smoker Second Hand Exposure: No; Hx Alcohol Use: No Hx Substance Use: No Preferred Language: Qatari Communication Ability: Effective Clinical Coder Required: No Beliefs That Will Affect Care: None marital status: Single Current Living Situation: Alone and Personal Care Facility Feels Safe at Home: Yes Assistive Devices: Denture - Upper and Denture - Lower Review of Systems A total of 10 systems reviewed and were otherwise negative Physical Exam Vital Signs Vital Signs - 24 hr 03/16/22 19:18 03/16/22 19:18 03/16/22 19:39 Temperature 37 C Temperature Source Oral Pulse Rate 111 H 78 Pulse Rate [Finger] Respiratory Rate 20 20 Respiratory Effort / Characteristics Non-Labored Spontaneous Respiratory Depth Normal Blood Pressure 134/95 Blood Pressure [Right Arm] Blood Pressure Mean 108 Blood Pressure Mean [Right Arm] Blood Pressure Position Sitting Blood Pressure Position [Right Arm] Pulse Oximetry 95 97 98 Oxygen Delivery Method Room Air Room Air Room Air Oxygen Flow Rate 0 0 Sepsis Recent Fever Within 48 Hours No Sepsis New/Unexplained Change in Mental Status N/A Sepsis Action Taken by Nursing No Action Required 03/16/22 21:39 Temperature Temperature Source Pulse Rate Pulse Rate [Finger] 95 H Respiratory Rate 23 Respiratory Effort / Characteristics Non-Labored Spontaneous Respiratory Depth Normal Blood Pressure Blood Pressure [Right Arm] 134/95 Blood Pressure Mean Blood Pressure Mean [Right Arm] 108 Blood Pressure Position Blood Pressure Position [Right Arm] Lying Pulse Oximetry Oxygen Delivery Method Oxygen Flow Rate Sepsis Recent Fever Within 48 Hours Sepsis New/Unexplained Change in Mental Status Sepsis Action Taken by Nursing Physical Exam GENERAL: She is oriented to person, place, and time. She appears well-developed and well-nourished. She does not appear distressed. HENT: Exam performed. -Head: Normocephalic and atraumatic. -Right Ear: External ear normal. No mastoid tenderness. -Left Ear: External ear normal. No mastoid tenderness. -Mouth/Throat: The oropharynx is clear and moist. No trismus in the jaw. No dental abscesses or uvula swelling. No oropharyngeal exudate or tonsillar abscesses. EYES: Conjunctivae and EOM are normal. Pupils are equal, round, and reactive to light. Right eye exhibits no discharge. Left eye exhibits no discharge. No scleral icterus. NECK: Normal range of motion. Neck supple. No JVD present. No spinous process tenderness present. No carotid bruit present. No rigidity. No tracheal deviation and normal range of motion present. No Brudzinski's sign and no Kernig's sign noted. CV: Normal rate, regular rhythm, normal heart sounds and intact distal pulses. Palpable radial pulses bue. PULM/CHEST: Effort normal and breath sounds normal. No respiratory distress. No stridor. She has no wheezes. She has no rales. -Chest Wall: She exhibits no tenderness. ABD: The abdomen is soft and obese. Bowel sounds are normal. She has no distension. No mass is present. There is no tenderness. There is no rebound, no guarding, no Chavarria's sign and no tenderness at McBurney's point. Rovsig negative MUSC/SKEL: Normal range of motion. There is no tenderness or deformity. LYMPH: No cervical adenopathy. NEURO: She is alert and oriented to person, place, and time. She has normal strength. No cranial nerve deficit or sensory deficit. Coordination and gait normal. GCS eye subscore is 4. GCS verbal subscore is 5. GCS motor subscore is 6. Cerebellar tests wnl. SKIN: Skin is warm and dry. She is not diaphoretic. PSYCH: She has a normal mood and affect. Behavior is normal. Judgment and thought content normal. Course Course 193: The patient was evaluated in room B5. A complete history and physical exam was performed Cardiac monitoring: An order was placed for continuous cardiac monitoring. The monitor shows a rate of 80 with sinus rhythm 2234: Vital signs stable. Labs within normal limits with exception of elevated D-dimer. CTA of the chest negative for PE. Patient will be admitted to the [facility] team for chest pain rule out ACS. Dr. Dejesus team notified. Administered Medications Discontinued Medications Aspirin (Aspirin Chew 324 Mg) 324 mg PO NOW STA Stop: 03/16/22 19:35 Last Admin: 03/16/22 19:48 Dose: 324 mg Documented By: JANE Ioversol (Optiray 320 125ml) 116 ml IV ONCE ONE Stop: 03/16/22 21:31 Last Admin: 03/16/22 21:30 Dose: 116 ml Documented By: ABDOUL Medical Decision Making Laboratory Data Result diagrams: 03/16/22 19:15 03/16/22 19:15 Labs: Lab Results 03/16/22 03/16/22 03/16/22 Range/Units 19:15 19:15 19:15 WBC 4.83 (4.8-10.8) K/ul RBC 4.49 (3.93-5.22) M/uL Hgb 13.7 (12.0-16.0) g/dl Hct 41.6 (34.1-44.9) % MCV 92.7 (80.0-100.0) fL MCH 30.5 (25.0-34.0) pg MCHC 32.9 (32.0-36.0) g/dL RDW Std Deviation 51.1 H (36.4-46.3) fL RDW Coeff of Vicki 14.9 H (11.5-14.5) % Plt Count 372 (130-400) K/uL MPV 10.4 (9.4-12.3) fL Immature Gran % (Auto) 1.4 % Neut % (Auto) 54.4 % Lymph % (Auto) 29.0 % Trigg % (Auto) 13.0 % Eos % (Auto) 1.4 % Baso % (Auto) 0.8 % Neut # (Auto) 2.62 (1.4-6.5) K/uL Lymph # (Auto) 1.40 (1.2-3.4) K/uL Trigg # (Auto) 0.63 (0.24-0.82) K/uL Eos # (Auto) 0.07 (0-0.50) K/uL Baso # (Auto) 0.04 (0-0.2) K/uL Immature Gran # (Auto) 0.07 H (0.00-0.02) K/uL PT 10.9 (9.0-12.0) Seconds INR 1.0 (0.9-1.1) APTT 24.4 (21.0-31.0) Seconds PTT Ratio 0.9 D-Dimer 720 H* (0-500) ug/L FEU Sodium 136 (136-145) mmol/L Potassium 3.5 (3.5-5.1) mmol/L Chloride 98 (98-107) mmol/L Carbon Dioxide 28 (21-32) mmol/L Anion Gap 10 (3-11) BUN 31 H (6-23) mg/dl Creatinine 1.13 (0.6-1.2) mg/dl Est Cr Clr Drug Dosing 44.9 ml/min Est GFR ( Amer) 52.4 ml/min Est GFR (Non-Af Amer) 45.2 ml/min BUN/Creatinine Ratio 27.4 H (10-20) Glucose 125 H (70-99(Fasting)) mg/dl Calcium 9.8 (8.5-10.1) mg/dl Troponin I High Sens 13.1 (0-14) pg/ml Lipase 32 (11-82) U/L SARS-CoV-2, RNA, NAAT (NEGATIVE) 03/16/22 Range/Units Unknown WBC (4.8-10.8) K/ul RBC (3.93-5.22) M/uL Hgb (12.0-16.0) g/dl Hct (34.1-44.9) % MCV (80.0-100.0) fL MCH (25.0-34.0) pg MCHC (32.0-36.0) g/dL RDW Std Deviation (36.4-46.3) fL RDW Coeff of Vicki (11.5-14.5) % Plt Count (130-400) K/uL MPV (9.4-12.3) fL Immature Gran % (Auto) % Neut % (Auto) % Lymph % (Auto) % Trigg % (Auto) % Eos % (Auto) % Baso % (Auto) % Neut # (Auto) (1.4-6.5) K/uL Lymph # (Auto) (1.2-3.4) K/uL Trigg # (Auto) (0.24-0.82) K/uL Eos # (Auto) (0-0.50) K/uL Baso # (Auto) (0-0.2) K/uL Immature Gran # (Auto) (0.00-0.02) K/uL PT (9.0-12.0) Seconds INR (0.9-1.1) APTT (21.0-31.0) Seconds PTT Ratio D-Dimer (0-500) ug/L FEU Sodium (136-145) mmol/L Potassium (3.5-5.1) mmol/L Chloride (98-107) mmol/L Carbon Dioxide (21-32) mmol/L Anion Gap (3-11) BUN (6-23) mg/dl Creatinine (0.6-1.2) mg/dl Est Cr Clr Drug Dosing ml/min Est GFR ( Amer) ml/min Est GFR (Non-Af Amer) ml/min BUN/Creatinine Ratio (10-20) Glucose (70-99(Fasting)) mg/dl Calcium (8.5-10.1) mg/dl Troponin I High Sens (0-14) pg/ml Lipase (11-82) U/L SARS-CoV-2, RNA, NAAT NEGATIVE (NEGATIVE) Imaging Data Chest x-ray: Radiologist's impression: Chest X-Ray 03/16/22 19:34 XR chest 1V portable CLINICAL HISTORY: Chest Pain. COMPARISON STUDY: 12/30/2019 TECHNIQUE: 1 view of the chest FINDINGS: Single frontal view of the chest demonstrates the heart to again be enlarged. There is a decreased inspiratory effort with elevation of the hemidiaphragms and crowding of the bronchovascular markings at the lung bases and centrally. Linear scarring is seen at the right lung base. The lungs are clear of alveolar opacities. There is no evidence for pleural effusion. There is no evidence for vascular congestion. There is no acute osseous pathology. IMPRESSION: 1. There is a decreased inspiratory effort with otherwise no acute chest disease. ACT 112: Negative or not required by law. Electronically signed by: Juwan Gaming M.D. 03/16/2022 8:30 PM PreliminaryFindingsOnly See Final Report For Complete Findings CTACHEST: No infiltrate, effusion or pneumothorax. The mediastinumis intact. The heart is somewhat large in size. No aortic aneurysmor dissection. There is mild atherosclerosis. No PE. Upper abdomen intact. No acute findings in the bones. Impression:No PE. Radiologist: Venkata Myers M.D. Study ready at 21:37 and initial results transmitted at 22:28 ECG Data Indication: chest pain Rate (beats per minute): 80 Rhythm: sinus with SA Findings: + 1st degree AV block; no ST depression, no ST elevation or no prolong ed QT MDM Narrative Vital signs stable. Labs within normal limits with exception of elevated D- dimer. CTA of the chest negative for PE. Patient will be admitted to the [facility] hospitalist team for chest pain rule out ACS. Dr. Dejesus team notified. Impression & Plan Chest pain Discharge Plan Visit Data Chief Complaint: Cardiac Assessment Stated Complaint: chest pain ED Provider: Thanh Damon Discharge Problem: Chest pain Patient Disposition: Being Evaluated by Hospitalist Forms Stand Alone Forms: [facility] Prescriptions Prescriptions: No Action aspirin 81 mg tablet,delayed release (DR/EC) 81 mg PO QAM raloxifene 60 mg tablet 60 mg PO QAM omega 2-vbg-cnf-fish oil [Fish Oil] 1,000 mg (120 mg-180 mg) Capsule 1 cap PO TIDM metolazone 2.5 mg Tablet 2.5 mg PO 3XWK Rx Instructions: TAKES MON, WED, & FRI IN mornings. Take 30 minutes before morning dose of bumex omeprazole 40 mg Capsule,Delayed Release(Dr/Ec) 40 mg PO QAM docusate sodium 100 mg Capsule 100 mg PO BIDM cholecalciferol (vitamin D3) [Vitamin D3] 10 mcg (400 unit) Tablet 20 mcg PO QAM fenofibrate 160 mg Tablet 160 mg PO PM Rx Instructions: Takes at 1600 bumetanide 2 mg tablet 2 mg PO TIDM Rx Instructions: TAKES AT 0800, 1200, & 1600 dextromethorphan-guaifenesin [Tussin DM] 10-100 mg/5 mL Liquid 10 ml PO Q4H PRN (Reason: Cough) lorazepam 0.5 mg Tablet 0.5 mg PO HS potassium chloride 40 mEq/15 mL liquid 40 meq PO ACHS ropinirole 2 mg tablet 2 mg PO QDL Rx Instructions: UNSURE IF THIS DOSE IS ALSO GIVEN WITH 1.5 MG DOSE FOR 7 DAYS. ropinirole 0.5 mg Tablet 1.5 mg PO QDL Rx Instructions: STARTED 03/14/22 FOR 7 DAYS escitalopram oxalate [Lexapro] 5 mg Tablet 5 mg PO DAILY diclofenac sodium [Voltaren] 1 % Gel 4 g TOPICAL BID PRN (Reason: Pain) Slow Fe 142 mg (45 mg iron) Tablet Extended Release 142 mg PO DAILY PreserVision AREDS-2 250-90-40-1 mg Capsule 1 tab PO BIDM Reguloid (psyllium husk) 3 gram/5.4 gram Powder 1 tbsp PO DAILY PRN (Reason: Constipation) Rx Instructions: mix into at least 8 oz of water or juice before administering spironolactone 50 mg tablet See Rx Instructions .ROUTE .COMPLEX Rx Instructions: 50 mg orally; TAKES 50 MG QAM, THEN 75 MG QDD. Referrals Referrals: Erick Mark [Primary Care Provider] -
--- NOTE | 2022-03-16 22:44 | History & Physical Report ---
Date of Service March 16, 2022 Assessment & Plan (1) Chest pain: Plan: Relieved by nitroglycerin Rule out ACS right-sided heart failure (EF 55 to 59%, TTE 2014)/sleep disordered breathing on nocturnal supplemental O2/pulmonary hypertension Chronic lymphedema as per records Significant fluid retention symptom after initiation of pregabalin and ropinirole for RLS valvular heart disease (moderate MR/TR TTE 2014), HTN, stable Hyperglycemia rule out DM OBS PCU Aspirin for CAD prevention until ACS ruled out Additional diuretic Rx for fluid retention symptoms TTE, cardiology consult Re: Chest pain, CHF Strict I/Os, daily weights, CHF education, fluid restriction N.p.o. after midnight until patient seen by cardiology for possible ischemic work-up Patient agreeable to being weaned off ropinirole Rx for RLS given significant fluid retention symptoms. Check hemoglobin A1c DVT prophylaxis. Lovenox subcu DNR Text document was generated using [employer] voice recognition software. It may contain grammatical or spelling errors. Kindly contact undersigned for clarification of any documentation item in question. History of Present Illness Chief Complaint: Chest pain Primary Care Provider: Dr. Lewis History obtained from patient and records. Medical history significant for right-sided heart failure (EF 55 to 59%, TTE 2014), sleep disordered breathing on nocturnal supplemental O2/pulmonary hypertension, valvular heart disease (moderate MR/TR TTE 2014), HTN, anxiety, RLS, chronic lymphedema as per records. Last confinement May 2018 for hip pain/sacral insufficiency fracture. Patient seen at PCP's office last month for restless legs. PCP initiated pregabalin after discussing potential for worsening lower extremity edema. Worsening leg swelling and fluid retention with pregabalin after a taking medication for a few days. Patient later switched to ropinirole. Weight gain of about 10 pounds in the last 3 weeks since starting ropinirole. Abdominal distention, exertional SOB, and leg swelling. No response to additional diuretic Rx. Patient still waiting for PCP to answer her question about stopping pain arrival. This morning patient experienced transient palpitations without chest pain/SOB. Patient had substernal heaviness described as an elephant sitting on her chest with shortness of breath symptoms a few hours ago. Prior episode many years ago as per patient. Some improvement of substernal heaviness after EMS administration of nitroglycerin. Patient currently comfortable at the ER. MEDICAL HISTORY: SURGICAL HISTORY: appendectomy, cholecystectomy, cataract surgery, D&C, BTL, tear duct surgery, tonsillectomy FAMILY HISTORY: There is a family history of heart disease, colon cancer, DM. PERSONAL /SOCIAL HISTORY: Nonsmoker. 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 Allergies Allergy/AdvReac Type Severity Reaction Status Date / Time demeclocycline Allergy Unknown ON Verified 03/16/22 21:12 [facility] sulfamethoxazole Allergy Unknown ON Verified 03/16/22 21:12 [facility] trimethoprim Allergy Unknown ON Verified 03/16/22 21:12 [facility] ropinirole AdvReac Intermediate fluid Verified 03/17/22 02:04 retention pregabalin [From Lyrica] AdvReac Mild Verified 03/17/22 02:04 Home Medications Medication Instructions Recorded Confirmed Type aspirin 81 mg tablet,delayed 81 mg PO QAM 05/05/18 03/16/22 History release omega 6-xjn-ayy-fish oil 1,000 mg 1 cap PO TIDM 05/05/18 03/16/22 History (120 mg-180 mg) capsule (Fish Oil) raloxifene 60 mg tablet 60 mg PO QAM osteoporosis 05/05/18 03/16/22 History bumetanide 2 mg tablet 2 mg PO TIDM 12/30/19 03/16/22 History cholecalciferol (vitamin D3) 10 20 mcg PO QAM 12/30/19 03/16/22 History mcg (400 unit) tablet (Vitamin D3) docusate sodium 100 mg capsule 100 mg PO BIDM 12/30/19 03/16/22 History fenofibrate 160 mg tablet 160 mg PO PM 12/30/19 03/16/22 History metolazone 2.5 mg tablet 2.5 mg PO 3XWK edema 12/30/19 03/16/22 History omeprazole 40 mg capsule,delayed 40 mg PO QAM 12/30/19 03/16/22 History release dextromethorphan-guaifenesin 10 10 ml PO Q4H PRN Cough 03/16/22 03/16/22 History mg-100 mg/5 mL oral liquid (Tussin DM) diclofenac sodium 1 % topical gel 4 g topical BID PRN Pain 03/16/22 03/16/22 History escitalopram oxalate 5 mg tablet 5 mg PO DAILY 03/16/22 03/16/22 History (Lexapro) ferrous sulfate 142 mg (45 mg 142 mg PO DAILY 03/16/22 03/16/22 History iron) tablet,extended release (Slow Fe) lorazepam 0.5 mg tablet 0.5 mg PO HS 03/16/22 03/16/22 History potassium chloride 40 mEq/15 mL 40 meq PO ACHS 03/16/22 03/16/22 History oral liquid psyllium husk 3 gram/5.4 gram oral 1 tbsp PO DAILY PRN Constipation 03/16/22 03/16/22 History powder (Reguloid (psyllium husk)) ropinirole 0.5 mg tablet 1.5 mg PO QDL 03/16/22 03/16/22 History ropinirole 2 mg tablet 2 mg PO QDL 03/16/22 03/16/22 History spironolactone 50 mg tablet See Rx Instructions .Route .COMPLEX 03/16/22 03/16/22 History vit C 250 mg-vit E 90 mg-zinc 40 1 tab PO BIDM 03/16/22 03/16/22 History mg-copper 1 st-bktqsc-zyiltj capsule (PreserVision AREDS-2) Past Med/Surg History Medical History (Updated 03/17/22 @ 00:04 by Kel Noel) Acute hip pain Chronic acquired lymphedema Chronic back pain Chronic GERD Cor pulmonale (chronic) Dependence on nocturnal oxygen therapy Dyslipidemia HTN (hypertension) Lumbar stenosis with neurogenic claudication Mitral valve prolapse Morbid obesity with BMI of 40.0-44.9, adult Nocturnal hypoxia RADHA (obstructive sleep apnea) Osteoporosis Right heart failure Right-sided congestive heart failure Sacral insufficiency fracture Surgical History Hx of cholecystectomy Status post appendectomy Status post cataract surgery Status post kyphoplasty L3, L4, L5 2017 Dr. Wan Status post lumbar spine surgery for decompression of spinal cord 2018 Dr. 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 Beliefs That Will Affect Care: None marital status: Single Current Living Situation: Personal Care Facility Other Information That Helps Us Care for You: No Feels Safe at Home: Yes Safety Concerns: Feels Safe At This Time Assistive Devices: Denture - Upper, Denture - Lower, Glasses and Walker Review of Systems Review of Systems: As per HPI, all other systems reviewed and negative Physical Exam Physical Exam: GENERAL: Comfortable, morbidly obese, no respiratory distress SKIN: Normal color, warm HEENT: Bespectacled, pink palpebral conjunctivae, no ptosis, moist buccal mucosa NECK : Supple, short neck, no tenderness CHEST : Decreased breath sounds, no tenderness HEART : RRR, no obvious murmurs ABDOMEN: distention, nontender EXTREMITIES : Bilateral LE swelling, no LE tenderness, no other conspicuous deformities noted NEUROLOGIC : Coherent, no facial asymmetry, no other gross focality Results & Data Results & Data ([facility]) Vital Signs (Past 12 Hours) Vital Signs Temp Pulse Pulse Resp BP BP Pulse Ox 03/16/22 21:39 95 H 23 134/95 03/16/22 19:39 78 20 98 03/16/22 19:18 97 03/16/22 19:18 37 C 111 H 20 134/95 95 O2 Del Method O2 Flow Rate 03/16/22 21:39 03/16/22 19:39 Room Air 0 03/16/22 19:18 Room Air 0 03/16/22 19:18 Room Air Laboratory Results Laboratory Results WBC 4.83 K/ul (4.8-10.8) 03/16/22 19:15 RBC 4.49 M/uL (3.93-5.22) 03/16/22 19:15 Hgb 13.7 g/dl (12.0-16.0) 03/16/22 19:15 Hct 41.6 % (34.1-44.9) 03/16/22 19:15 MCV 92.7 fL (80.0-100.0) 03/16/22 19:15 MCH 30.5 pg (25.0-34.0) 03/16/22 19:15 MCHC 32.9 g/dL (32.0-36.0) 03/16/22 19:15 RDW Std Deviation 51.1 fL (36.4-46.3) H 03/16/22 19:15 RDW Coeff of Vicki 14.9 % (11.5-14.5) H 03/16/22 19:15 Plt Count 372 K/uL (130-400) 03/16/22 19:15 MPV 10.4 fL (9.4-12.3) 03/16/22 19:15 Immature Gran % (Auto) 1.4 % 03/16/22 19:15 Neut % (Auto) 54.4 % 03/16/22 19:15 Lymph % (Auto) 29.0 % 03/16/22 19:15 Nolan % (Auto) 13.0 % 03/16/22 19:15 Eos % (Auto) 1.4 % 03/16/22 19:15 Baso % (Auto) 0.8 % 03/16/22 19:15 Neut # (Auto) 2.62 K/uL (1.4-6.5) 03/16/22 19:15 Lymph # (Auto) 1.40 K/uL (1.2-3.4) 03/16/22 19:15 Nolan # (Auto) 0.63 K/uL (0.24-0.82) 03/16/22 19:15 Eos # (Auto) 0.07 K/uL (0-0.50) 03/16/22 19:15 Baso # (Auto) 0.04 K/uL (0-0.2) 03/16/22 19:15 Immature Gran # (Auto) 0.07 K/uL (0.00-0.02) H 03/16/22 19:15 PT 10.9 Seconds (9.0-12.0) 03/16/22 19:15 INR 1.0 (0.9-1.1) 03/16/22 19:15 APTT 24.4 Seconds (21.0-31.0) 03/16/22 19:15 PTT Ratio 0.9 03/16/22 19:15 D-Dimer 720 ug/L FEU (0-500) H* 03/16/22 19:15 Sodium 136 mmol/L (136-145) 03/16/22 19:15 Potassium 3.5 mmol/L (3.5-5.1) 03/16/22 19:15 Chloride 98 mmol/L (98-107) 03/16/22 19:15 Carbon Dioxide 28 mmol/L (21-32) 03/16/22 19:15 Anion Gap 10 (3-11) 03/16/22 19:15 BUN 31 mg/dl (6-23) H 03/16/22 19:15 Creatinine 1.13 mg/dl (0.6-1.2) 03/16/22 19:15 Est Cr Clr Drug Dosing 44.9 ml/min 03/16/22 19:15 Est GFR ( Amer) 52.4 ml/min 03/16/22 19:15 Est GFR (Non-Af Amer) 45.2 ml/min 03/16/22 19:15 BUN/Creatinine Ratio 27.4 (10-20) H 03/16/22 19:15 Glucose 125 mg/dl (70-99(Fasting)) H 03/16/22 19:15 Calcium 9.8 mg/dl (8.5-10.1) 03/16/22 19:15 Troponin I High Sens 13.1 pg/ml (0-14) 03/16/22 19:15 Lipase 32 U/L (11-82) 03/16/22 19:15 SARS-CoV-2, RNA, NAAT NEGATIVE (NEGATIVE) 03/16/22 Unknown Impressions Chest X-Ray 03/16/22 19:34 XR chest 1V portable CLINICAL HISTORY: Chest Pain. COMPARISON STUDY: 12/30/2019 TECHNIQUE: 1 view of the chest FINDINGS: Single frontal view of the chest demonstrates the heart to again be enlarged. There is a decreased inspiratory effort with elevation of the hemidiaphragms and crowding of the bronchovascular markings at the lung bases and centrally. Linear scarring is seen at the right lung base. The lungs are clear of alveolar opacities. There is no evidence for pleural effusion. There is no evidence for vascular congestion. There is no acute osseous pathology. IMPRESSION: 1. There is a decreased inspiratory effort with otherwise no acute chest disease. ACT 112: Negative or not required by law. Electronically signed by: Juwan Gaming M.D. 03/16/2022 8:[address] chest initial read: No infiltrate, effusion or pneumothorax. The mediastinumis intact. The heart is somewhat large in size. No aortic aneurysmor dissection. There is mild atherosclerosis. No PE. Upper abdomen intact. No acute findings in the bones. Impression:No PE. EKG as per my interpretation:Rate 80, NSR, LAD, LAFB, 1 AVB, LVH, no ischemia (1) Chest pain Chest pain type: unspecified Qualified Code(s): R07.9 - Chest pain, unspecified
[2022-03-16] MEDS ORDERED: POTASSIUM CHLORIDE CRTAB 20 MEQ TABCR PO STA (23:23)
[2022-03-16] MEDS ORDERED: FUROSEMIDE 40 MG/4 ML VIAL IV STA (23:24)
[2022-03-17] MEDS ORDERED: NITROGLYCERIN SL 0.4 MG/TAB TAB SL PRN (00:25)
[2022-03-17] MEDS ORDERED: traMADol HCL 50 MG TABLET PO PRN (00:25)
[2022-03-17] MEDS ORDERED: ACETAMINOPHEN 325 MG TAB PO PRN (00:25)
[2022-03-17] MEDS ORDERED: MoRPHine SULFATE 4 MG/ML 1 ML CARP\\VIAL IV PRN (00:25)
[2022-03-17] MEDS ORDERED: PROMETHAZINE HCL 12.5 MG in SODIUM CHLORIDE 0.9% 50 ML IV PRN (00:25)
[2022-03-17] MEDS ORDERED: PSYLLIUM or GUAR GUM FIBER POWDER PACKET PO PRN (00:44)
[2022-03-17] MEDS: LORazepam 0.5 MG TAB PO SCH ×2 (00:58→20:29)
[2022-03-17] MEDS ORDERED: POTASSIUM CHLORIDE CRTAB 20 MEQ TABCR PO ONE (01:30)
[2022-03-17] MEDS: NYSTATIN POWDER 15GM BTL EXT SCH ×3 (03:06→20:30)
[2022-03-17 06:14] LABS: Basophils # (auto) 0.04 K/uL (0-0.2); Basophils % (auto) 0.8 %; Eosinophils # (auto) 0.08 K/uL (0-0.50); Eosinophils % (auto) 1.6 %; Hematocrit (blood only) 39.5 % (34.1-44.9); Hemoglobin 13.1 g/dl (12.0-16.0); Immature Granulocytes # (auto) 0.05 K/uL (0.00-0.02); Lymphocytes # (auto) 1.14 K/uL (1.2-3.4); Lymphocytes % (auto) 22.8 %; Mean Corpuscular Hemoglobin 30.2 pg (25.0-34.0); Mean Corpuscular Hgb Conc 33.2 g/dL (32.0-36.0); Mean Platelet Volume 9.8 fL (9.4-12.3); Monocytes # (auto) 0.58 K/uL (0.24-0.82); Monocytes % (auto) 11.6 %; Neutrophils # (auto) 3.11 K/uL (1.4-6.5); Neutrophils % (auto) 62.2 %; Platelet Count 309 K/uL (130-400); RDW Coefficient of Variation 15.1 % (11.5-14.5); RDW Standard Deviation 50.2 fL (36.4-46.3); Red Blood Count 4.34 M/uL (3.93-5.22)
[2022-03-17 06:50] LABS: BUN Creatinine Ratio 29.7 (10-20); Calcium 9.3 mg/dl (8.5-10.1); Chol HDL Ratio 4.2 (0-5); Creatinine Clr Calc Pharmacy 48.2 ml/min; Est GFR (Non-African American) 51.8 ml/min; Potassium 3.6 mmol/L (3.5-5.1)
[2022-03-17 07:10] LABS: Estimated Average Glucose 126 mg/dl
--- NOTE | 2022-03-17 07:11 | Ultrasound Report ---
US abdomen ltd ascites CLINICAL HISTORY: Abdominal distention. Evaluate for ascites. COMPARISON STUDY: CT of the abdomen and pelvis 12/30/2019. TECHNIQUE: Sonography of the abdomen and pelvis was performed to assess for ascites. FINDINGS: No ascites was identified within the abdomen or pelvis. IMPRESSION: No ascites. ACT 112: Negative or not required by law. Electronically signed by: Lan Wilcox M.D. 03/17/2022 7:09 AM
--- NOTE | 2022-03-17 08:57 | CT Scan Report ---
CHEST CTA for PULMONARY ARTERIES CT DOSE: 586.05 mGy.cm HISTORY: Chest pressure. TECHNIQUE: Multiaxial CT images of the chest were performed following the intravenous administration of contrast to evaluate the pulmonary arteries. Maximal intensity projection images were also obtaine d. A dose lowering technique was utilized adhering to the principles of ALARA. COMPARISON STUDY: Chest CTA 12/30/2019. FINDINGS: Mild anterior wedging within the T8 vertebral body unchanged. This is likely chronic. There are old, healed left-sided rib fractures. No acute fractures identified within the chest. Mild eleva tion the right hemidiaphragm, unchanged. The visualized liver, spleen, and adrenal glands are unremar kable. The thyroid gland enhances normally. No mediastinal or hilar lymphadenopathy. The heart remain s mildly enlarged. No pleural or pericardial effusions. Normal esophagus. Normal caliber thoracic aor ta with no evidence for dissection. The main pulmonary artery is dilated up to 3.8 cm consistent with pulmonary arterial hypertension. No filling defects within the pulmonary arteries to suggest a pulmo nary embolus. Mild dependent changes noted at the lung bases. No pneumothorax. The central airways ar e patent. No focal lung consolidations to suggest pneumonia. Mosaic attenuation within the lungs cons istent with mild air trapping. This can be seen in the setting of small airways disease. IMPRESSION: 1. No evidence for pulmonary embolus. 2. Mild cardiomegaly. 3. Mosaic attenuation within the lungs consistent with mild air trapping. This can be seen in the set ting of small airways disease. ACT 112: Negative or not required by law. Electronically signed by: Amanuel Roberts M.D. 03/17/2022 8:55 AM
[2022-03-17] MEDS ORDERED: FERROUS SULFATE PO SCH (09:00)
[2022-03-17] MEDS ORDERED: rOPINIRole HCL 1 MG TABLET PO SCH (09:00)
[2022-03-17] MEDS: POTASSIUM CHLORIDE 20 MEQ/15 ML UDC PO SCH ×2 (09:25→20:30)
[2022-03-17] MEDS: PANTOprazole 40 MG TAB PO SCH (09:26)
[2022-03-17] MEDS: ENOXAPARIN INJ 40 MG/0.4 ML SYR SQ SCH (09:26)
[2022-03-17] MEDS: ASPIRIN 81 MG ECTAB PO SCH (09:26)
[2022-03-17] MEDS: ESCITALOPRAM OXALATE 10 MG TAB PO SCH (09:26)
[2022-03-17] MEDS: DOCUSATE SODIUM 100 MG CAP PO SCH ×2 (09:26→17:26)
--- NOTE | 2022-03-17 12:46 | Cardiology Consultation ---
Date of Consultation March 17, 2022 Assessment & Plan (1) Chest pain: (2) Cor pulmonale (chronic): (3) Restless leg syndrome: (4) Volume overload: Plan volume overload do to Requip IV lasix 40mg bid follow and replete lytes check echo History of Present Illness Reason for Consultation: chest pain/sob Requesting Physician: DEJA Attending Physician: Gerri Engle MD Allergies Allergy/AdvReac Type Severity Reaction Status Date / Time demeclocycline Allergy Unknown ON Verified 03/16/22 21:12 [facility] sulfamethoxazole Allergy Unknown ON Verified 03/16/22 21:12 [facility] trimethoprim Allergy Unknown ON Verified 03/16/22 21:12 [facility] ropinirole AdvReac Intermediate fluid Verified 03/17/22 02:04 retention pregabalin [From Lyrica] AdvReac Mild Verified 03/17/22 02:04 Home Medications Medication Instructions Recorded Confirmed Type aspirin 81 mg tablet,delayed 81 mg PO QAM 05/05/18 03/16/22 History release omega 5-yku-wwz-fish oil 1,000 mg 1 cap PO TIDM 05/05/18 03/16/22 History (120 mg-180 mg) capsule (Fish Oil) raloxifene 60 mg tablet 60 mg PO QAM osteoporosis 05/05/18 03/16/22 History bumetanide 2 mg tablet 2 mg PO TIDM 12/30/19 03/16/22 History cholecalciferol (vitamin D3) 10 20 mcg PO QAM 12/30/19 03/16/22 History mcg (400 unit) tablet (Vitamin D3) docusate sodium 100 mg capsule 100 mg PO BIDM 12/30/19 03/16/22 History fenofibrate 160 mg tablet 160 mg PO PM 12/30/19 03/16/22 History metolazone 2.5 mg tablet 2.5 mg PO 3XWK edema 12/30/19 03/16/22 History omeprazole 40 mg capsule,delayed 40 mg PO QAM 12/30/19 03/16/22 History release dextromethorphan-guaifenesin 10 10 ml PO Q4H PRN Cough 03/16/22 03/16/22 History mg-100 mg/5 mL oral liquid (Tussin DM) diclofenac sodium 1 % topical gel 4 g topical BID PRN Pain 03/16/22 03/16/22 History escitalopram oxalate 5 mg tablet 5 mg PO DAILY 03/16/22 03/16/22 History (Lexapro) ferrous sulfate 142 mg (45 mg 142 mg PO DAILY 03/16/22 03/16/22 History iron) tablet,extended release (Slow Fe) lorazepam 0.5 mg tablet 0.5 mg PO HS 03/16/22 03/16/22 History potassium chloride 40 mEq/15 mL 40 meq PO ACHS 03/16/22 03/16/22 History oral liquid psyllium husk 3 gram/5.4 gram oral 1 tbsp PO DAILY PRN Constipation 03/16/22 03/16/22 History powder (Reguloid (psyllium husk)) ropinirole 0.5 mg tablet 1.5 mg PO QDL 03/16/22 03/16/22 History ropinirole 2 mg tablet 2 mg PO QDL 03/16/22 03/16/22 History spironolactone 50 mg tablet See Rx Instructions .Route .COMPLEX 03/16/22 03/16/22 History vit C 250 mg-vit E 90 mg-zinc 40 1 tab PO BIDM 03/16/22 03/16/22 History mg-copper 1 pv-rmkawu-dwyrdt capsule (PreserVision AREDS-2) Patient History Medical History (Updated 03/17/22 @ 12:45 by Oliver Gregorio DO) Acute hip pain Chronic acquired lymphedema Chronic back pain Chronic GERD Cor pulmonale (chronic) Dependence on nocturnal oxygen therapy Dyslipidemia HTN (hypertension) Lumbar stenosis with neurogenic claudication Mitral valve prolapse Morbid obesity with BMI of 40.0-44.9, adult Nocturnal hypoxia RADHA (obstructive sleep apnea) Osteoporosis Right heart failure Right-sided congestive heart failure Sacral insufficiency fracture Surgical History Hx of cholecystectomy Status post appendectomy Status post cataract surgery Status post kyphoplasty L3, L4, L5 2017 Dr. Wan Status post lumbar spine surgery for decompression of spinal cord 2017 Dr. 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 Beliefs That Will Affect Care: None marital status: Single Current Living Situation: Personal Care Facility Other Information That Helps Us Care for You: No Feels Safe at Home: Yes Safety Concerns: Feels Safe At This Time Assistive Devices: Walker and Wheelchair Results & Data ([facility]) Vital Signs (Past 12 Hours) Vital Signs Temp Pulse Pulse Resp BP BP Pulse Ox 03/17/22 11:30 36.7 C 86 14 108/69 97 03/17/22 07:20 37 C 75 12 118/75 95 03/17/22 07:29 03/17/22 07:40 75 03/17/22 03:31 36.7 C 85 17 123/75 96 03/17/22 01:39 03/17/22 01:20 88 O2 Del Method O2 Flow Rate 03/17/22 11:30 Room Air 03/17/22 07:20 Nasal Cannula 2 03/17/22 07:29 Room Air 03/17/22 07:40 03/17/22 03:31 Nasal Cannula 2 03/17/22 01:39 Nasal Cannula 2 03/17/22 01:20 (1) Chest pain Chest pain type: unspecified Qualified Code(s): R07.9 - Chest pain, unspecified
--- NOTE | 2022-03-17 13:53 | Electrocardiogram Report ---
Test Reason : Blood Pressure : / mmHG Vent. Rate : 080 BPM Atrial Rate : 080 BPM P-R Int : 242 ms QRS Dur : 094 ms QT Int : 402 ms P-R-T Axes : 030 -18 049 degrees QTc Int : 463 ms Sinus rhythm with 1st degree A-V block with Premature atrial complexes Moderate voltage criteria for LVH, may be normal variant Nonspecific ST and T wave abnormality Abnormal ECG When compared with ECG of 16-MAR-2022 19:10, (unconfirmed) No significant change was found Confirmed by Ugo Padilla ([id number]) on 03/17/2022 1:53:08 PM Referred By: Erick Jones [place] Confirmed By:Ugo Padilla
--- NOTE | 2022-03-17 14:10 | Electrocardiogram Report ---
Test Reason : Blood Pressure : / mmHG Vent. Rate : 070 BPM Atrial Rate : 070 BPM P-R Int : 234 ms QRS Dur : 096 ms QT Int : 414 ms P-R-T Axes : 046 -09 060 degrees QTc Int : 447 ms Sinus rhythm with 1st degree A-V block Otherwise normal ECG When compared with ECG of 16-MAR-2022 19:33, (unconfirmed) Premature atrial complexes are no longer Present Confirmed by Ugo Padilla ([id number]) on 03/17/2022 2:09:59 PM Referred By: Erick Jones [place] Confirmed By:Ugo Padilla
--- NOTE | 2022-03-17 15:46 | Hospitalist Progress Note ---
Date of Service March 17, 2022 Assessment & Plan (1) Right-sided congestive heart failure: Plan: Presented with shortness of breath and chest tightness Right-sided heart failure (EF 55 to 59%, TTE 2014)/sleep disordered breathing on nocturnal supplemental O2/pulmonary hypertension Chronic lymphedema as per records Significant fluid retention symptom after initiation of pregabalin and ropinirole for RLS Has been started on intravenous Lasix 40 mg IV twice daily Recoup has been discontinued She has been feeling much better Appreciate cardiology input and recommendation Will check echo Strict I/Os, daily weights, CHF education, fluid restriction (2) Chest pain: Plan: Relieved by nitroglycerin Serial troponins have been unremarkable Doubt any ACS Valvular heart disease (moderate MR/TR TTE 2014), Will check echo to evaluate LV function and valvular heart disease status (3) Restless leg syndrome: Plan: Has been on pregabalin and Requip Likely the cause for fluid retention Requip and pregabalin are on hold We will continue Ultram (4) Cor pulmonale (chronic): Plan: As above (5) HTN (hypertension): Plan: HTN, stable Hyperglycemia rule out DM Check hemoglobin A1c DVT prophylaxis. Lovenox subcu DNR Admission and Anticipated Discharge Date Admission Date: March 16, 2022 Subjective 03/17/2022 The patient was seen and examined in telemetry unit She was admitted with shortness of breath and chest pain/pressure she has been sitting at the edge of the bed and denies any more chest pain Still has shortness of breath with ambulation Review of Systems Review of Systems: All systems reviewed and are unremarkable except as noted below Physical Exam Physical Exam: Sitting at the edge of the bed without any acute distress but very anxious Constitutional: well developed, well nourished, + ill appearing and + morbidly obese Eyes: PERRL, conjunctivae normal, anicteric sclerae ENMT: external ear and nose normal, oropharynx normal Neck: trachea midline, no thyromegaly Respiratory: + respiratory distress (Minimal distress at rest) Auscultation: + diminished lung sounds and + crackles (Occasional crackles at the bases) Cardiovascular: Rate/Rhythm: regular rate and regular rhythm; not tachycardic Heart Sounds: normal S1, normal S2 and + murmur (2/6 ESM over precordium) Gastrointestinal (Abdomen): Inspection/Auscultation: normal bowel sounds; abdomen not distended Percussion/Palpation: abdomen soft; abdomen nontender Musculoskeletal: No acute arthritis in any joint Neurologic: Alert, awake and oriented x3. No focal sensory or no motor deficit appreciated Lymphatic: no cervical or axillary lymphadenopathy Results & Data Results & Data ([facility]) Vital Signs (Past 12 Hours) Vital Signs Temp Pulse Pulse Resp BP Pulse Ox O2 Del Method 03/17/22 15:21 36.7 C 80 20 118/78 95 Room Air 03/17/22 14:51 88 03/17/22 11:30 36.7 C 86 14 108/69 97 Room Air 03/17/22 07:20 37 C 75 12 118/75 95 Nasal Cannula 03/17/22 07:29 Room Air 03/17/22 07:40 75 O2 Flow Rate 03/17/22 15:21 03/17/22 14:51 03/17/22 11:30 03/17/22 07:20 2 03/17/22 07:29 03/17/22 07:40 Laboratory Results Short CBC 03/16/22 03/17/22 Range/Units 19:15 06:03 WBC 4.83 5.00 (4.8-10.8) K/ul Hgb 13.7 13.1 (12.0-16.0) g/dl Hct 41.6 39.5 (34.1-44.9) % Plt Count 372 309 (130-400) K/uL [facility] 03/16/22 03/17/22 19:15 06:03 Sodium 136 140 Potassium 3.5 3.6 Chloride 98 103 Carbon Dioxide 28 30 BUN 31 H 30 H Creatinine 1.13 1.01 Glucose 125 H 117 H Calcium 9.8 9.3 Medications Administered Current Inpatient Medications Acetaminophen (Acetaminophen 325 Mg Tab) 650 mg PO Q4H PRN PRN Reason: Pain or Fever Stop: 04/16/22 00:24 Aspirin (Aspirin 81 Mg Ectab) 81 mg PO QAM [facility] Stop: 04/16/22 08:59 Last Admin: 03/17/22 09:26 Dose: 81 mg Diclofenac Sodium (Diclofenac Sod 1% Gel 100 Gm Tube) 4 gm EXT BID PRN; Protocol PRN Reason: Pain Stop: 04/16/22 00:24 Docusate Sodium (Docusate Sodium 100 Mg Cap) 100 mg PO BIDM [facility] Stop: 04/16/22 07:59 Last Admin: 03/17/22 09:26 Dose: 100 mg Enoxaparin Sodium (Enoxaparin Inj 40 Mg/0.4 Ml Syr) 40 mg SQ QAM [facility] Stop: 04/16/22 08:59 Last Admin: 03/17/22 09:26 Dose: 40 mg Escitalopram Oxalate (Escitalopram Oxalate 10 Mg Tab) 5 mg PO DAILY [facility] Stop: 04/16/22 08:59 Last Admin: 03/17/22 09:26 Dose: 5 mg Fenofibrate (Fenofibrate Nanocrystallized 145 Mg Tablet) 145 mg PO PM [facility] Stop: 04/16/22 20:59 Promethazine HCl 12.5 mg/ (Sodium Chloride) 50.5 mls @ 202 mls/hr IV Q6H PRN PRN Reason: Nausea And Vomiting Stop: 04/16/22 00:24 Lorazepam (Lorazepam 0.5 Mg Tab) 0.5 mg PO HS [facility] Stop: 04/16/22 00:24 Last Admin: 03/17/22 00:58 Dose: 0.5 mg Morphine Sulfate (Morphine Sulfate 4 Mg/Ml 1 Ml Carp\Vial) 4 mg IV Q4H PRN PRN Reason: Pain Stop: 03/31/22 00:24 Nitroglycerin (Nitroglycerin Sl 0.4 Mg/Tab Tab) 0.4 mg SL UD PRN PRN Reason: Chest Pain Stop: 04/16/22 00:24 Nystatin (Nystatin Powder 15gm Btl) 1 appln EXT BID [facility] Stop: 04/16/22 01:29 Last Admin: 03/17/22 09:27 Dose: 1 appln Pantoprazole Sodium (Pantoprazole 40 Mg Tab) 40 mg PO QAM [facility] Stop: 04/16/22 08:59 Last Admin: 03/17/22 09:26 Dose: 40 mg Potassium Chloride (Potassium Chloride 20 Meq/15 Ml Udc) 40 meq PO BID [facility] Stop: 04/16/22 08:59 Last Admin: 03/17/22 09:25 Dose: 40 meq Psyllium Hydrophilic Mucilloid (Psyllium Or Guar Gum Fiber Powder Packet) 1 pkt PO DAILY PRN PRN Reason: Constipation Stop: 04/16/22 00:43 Spironolactone (Spironolactone 25 Mg Tab) 75 mg PO QDD [facility] Stop: 04/16/22 16:29 Tramadol HCl (Tramadol Hcl 50 Mg Tablet) 25 - 50 mg PO Q4H PRN PRN Reason: Pain Stop: 04/16/22 00:24 (1) Chest pain Chest pain type: unspecified Qualified Code(s): R07.9 - Chest pain, unspecified
[2022-03-17] MEDS: SPIRONOLACTONE 25 MG TAB PO SCH (17:25)
[2022-03-17] MEDS: FENOFIBRATE NANOCRYSTALLIZED 145 MG TABLET PO SCH (20:30)
[2022-03-17] MEDS: DICLOFENAC SOD 1% GEL 100 GM TUBE EXT PRN (21:22)
[2022-03-18 06:45] LABS: Basophils # (auto) 0.04 K/uL (0-0.2); Basophils % (auto) 0.8 %; Eosinophils # (auto) 0.12 K/uL (0-0.50); Eosinophils % (auto) 2.4 %; Hematocrit (blood only) 40.2 % (34.1-44.9); Immature Granulocytes # (auto) 0.08 K/uL (0.00-0.02); Immature Granulocytes % (auto) 1.6 %; Lymphocytes # (auto) 1.44 K/uL (1.2-3.4); Mean Corpuscular Hemoglobin 30.5 pg (25.0-34.0); Mean Corpuscular Hgb Conc 32.3 g/dL (32.0-36.0); Mean Corpuscular Volume 94.4 fL (80.0-100.0); Mean Platelet Volume 9.8 fL (9.4-12.3); Monocytes # (auto) 0.57 K/uL (0.24-0.82); Monocytes % (auto) 11.5 %; Neutrophils # (auto) 2.71 K/uL (1.4-6.5); Neutrophils % (auto) 54.7 %; Platelet Count 301 K/uL (130-400); RDW Coefficient of Variation 15.2 % (11.5-14.5); Red Blood Count 4.26 M/uL (3.93-5.22); White Blood Count 4.96 K/ul (4.8-10.8)
[2022-03-18 07:11] LABS: BUN Creatinine Ratio 26.5 (10-20); Calcium 9.4 mg/dl (8.5-10.1); Creatinine Clr Calc Pharmacy 50.2 ml/min; Est GFR (African American) 62.3 ml/min; Est GFR (Non-African American) 53.7 ml/min; Magnesium 2.2 mg/dl (1.7-2.4)
[2022-03-18] MEDS: DICLOFENAC SOD 1% GEL 100 GM TUBE EXT PRN ×2 (07:55→22:10)
[2022-03-18] MEDS: NYSTATIN POWDER 15GM BTL EXT SCH ×2 (07:55→20:12)
[2022-03-18] MEDS: ASPIRIN 81 MG ECTAB PO SCH (07:56)
[2022-03-18] MEDS: PANTOprazole 40 MG TAB PO SCH (07:56)
[2022-03-18] MEDS: ESCITALOPRAM OXALATE 10 MG TAB PO SCH (07:56)
[2022-03-18] MEDS: ENOXAPARIN INJ 40 MG/0.4 ML SYR SQ SCH (07:56)
[2022-03-18] MEDS: POTASSIUM CHLORIDE 20 MEQ/15 ML UDC PO SCH ×2 (07:56→20:11)
[2022-03-18] MEDS: DOCUSATE SODIUM 100 MG CAP PO SCH ×2 (07:56→17:26)
--- NOTE | 2022-03-18 08:33 | Hospitalist Progress Note ---
Date of Service March 18, 2022 Assessment & Plan (1) Right-sided congestive heart failure: Plan: Possible Acute diastolic RV CHF Presented with shortness of breath and chest tightness Right-sided heart failure (EF 55 to 59%, TTE 2014)/sleep disordered breathing on nocturnal supplemental O2/pulmonary hypertension Chronic lymphedema as per records Significant fluid retention symptom after initiation of pregabalin and ropinirole for RLS Has been started on intravenous Lasix 40 mg IV twice daily Recoup has been discontinued She has been feeling much better Appreciate cardiology input and recommendation Will check echo Strict I/Os, daily weights, CHF education, fluid restriction Missed Lasix yesterday and that was started since this morning 40 mg IV twice daily Cumulative fluid balance is -3.6 L We will continue with current management Has had PT and OT evaluation and recommended PCF with continued physical therapy (2) Chest pain: Plan: Relieved by nitroglycerin Serial troponins have been unremarkable Doubt any ACS Valvular heart disease (moderate MR/TR TTE 2014), Will check echo to evaluate LV function and valvular heart disease status (3) Restless leg syndrome: Plan: Has been on pregabalin and Requip Likely the cause for fluid retention Requip and pregabalin are on hold We will continue Ultram Started on gabapentin 100 mg daily to see if that improves leg pain (4) Cor pulmonale (chronic): Plan: As above (5) HTN (hypertension): Plan: HTN, stable Hyperglycemia rule out DM Check hemoglobin A1c DVT prophylaxis. Lovenox subcu DNR Admission and Anticipated Discharge Date Admission Date: March 16, 2022 Subjective 03/17/2022 The patient was seen and examined in telemetry unit She was admitted with shortness of breath and chest pain/pressure she has been sitting at the edge of the bed and denies any more chest pain Still has shortness of breath with ambulation 03/18/2022 The patient was seen and examined in telemetry unit She has been feeling a little short of breath today and she did not get any Lasix yesterday Still complains to have restless legs Review of Systems Review of Systems: All systems reviewed and are unremarkable except as noted below Respiratory: Minimal shortness of breath at rest Physical Exam Physical Exam: Sitting at the edge of the bed without any acute distress but very anxious Constitutional: well developed, well nourished, + ill appearing and + morbidly obese Eyes: PERRL, conjunctivae normal, anicteric sclerae ENMT: external ear and nose normal, oropharynx normal Neck: trachea midline, no thyromegaly Respiratory: + respiratory distress (Minimal distress at rest) Auscu ltation: + diminished lung sounds and + crackles (Occasional crackles at the bases) Cardiovascular: Rate/Rhythm: regular rate and regular rhythm; not tachycardic Heart Sounds: normal S1, normal S2 and + murmur (2/6 ESM over precordium) Extremities: + edema (Bilateral leg edema and lymphedema) Gastrointestinal (Abdomen): Inspection/Auscultation: normal bowel sounds; abdomen not distended Percussion/Palpation: abdomen soft; abdomen nontender Musculoskeletal: No acute arthritis in any joint Neurologic: Alert, awake and oriented x3. No focal sensory or no motor deficit appreciated Psychiatric: A+Ox3, euthymic affect Lymphatic: no cervical or axillary lymphadenopathy Results & Data Results & Data ([facility]) Vital Signs (Past 12 Hours) Vital Signs Temp Pulse Pulse Pulse Resp BP Pulse Ox 03/18/22 07:44 36.6 C 67 18 144/82 H 100 03/18/22 03:13 36.4 C L 65 16 148/82 H 98 03/17/22 23:43 36.8 C 80 17 127/71 95 03/17/22 23:00 69 03/17/22 21:00 O2 Del Method O2 Flow Rate 03/18/22 07:44 Nasal Cannula 2 03/18/22 03:13 Nasal Cannula 2 03/17/22 23:43 Room Air 03/17/22 23:00 03/17/22 21:00 Nasal Cannula 2 Laboratory Results Short CBC 03/18/22 Range/Units 06:26 WBC 4.96 (4.8-10.8) K/ul Hgb 13.0 (12.0-16.0) g/dl Hct 40.2 (34.1-44.9) % Plt Count 301 (130-400) K/uL [facility] 03/18/22 06:26 Sodium 139 Potassium 4.0 Chloride 104 Carbon Dioxide 29 BUN 26 H Creatinine 0.98 Glucose 108 H Calcium 9.4 Medications Administered Current Inpatient Medications Acetaminophen (Acetaminophen 325 Mg Tab) 650 mg PO Q4H PRN PRN Reason: Pain or Fever Stop: 04/16/22 00:24 Aspirin (Aspirin 81 Mg Ectab) 81 mg PO QAM [facility] Stop: 04/16/22 08:59 Last Admin: 03/18/22 07:56 Dose: 81 mg Diclofenac Sodium (Diclofenac Sod 1% Gel 100 Gm Tube) 4 gm EXT BID PRN; Protocol PRN Reason: Pain Stop: 04/16/22 00:24 Last Admin: 03/18/22 07:55 Dose: 4 gm Docusate Sodium (Docusate Sodium 100 Mg Cap) 100 mg PO BIDM [facility] Stop: 04/16/22 07:59 Last Admin: 03/18/22 07:56 Dose: 100 mg Enoxaparin Sodium (Enoxaparin Inj 40 Mg/0.4 Ml Syr) 40 mg SQ QAM [facility] Stop: 04/16/22 08:59 Last Admin: 03/18/22 07:56 Dose: 40 mg Escitalopram Oxalate (Escitalopram Oxalate 10 Mg Tab) 5 mg PO DAILY [facility] Stop: 04/16/22 08:59 Last Admin: 03/18/22 07:56 Dose: 5 mg Fenofibrate (Fenofibrate Nanocrystallized 145 Mg Tablet) 145 mg PO PM [facility] Stop: 04/16/22 20:59 Last Admin: 03/17/22 20:30 Dose: 145 mg Furosemide (Furosemide 40 Mg/4 Ml Vial) 40 mg IV BID [facility] Stop: 04/17/22 08:59 Last Admin: 03/18/22 09:14 Dose: 40 mg Gabapentin (Gabapentin 100 Mg Cap) 100 mg PO QAM [facility] Stop: 04/17/22 12:44 Last Admin: 03/18/22 13:51 Dose: 100 mg Promethazine HCl 12.5 mg/ (Sodium Chloride) 50.5 mls @ 202 mls/hr IV Q6H PRN PRN Reason: Nausea And Vomiting Stop: 04/16/22 00:24 Lorazepam (Lorazepam 0.5 Mg Tab) 0.5 mg PO HS [facility] Stop: 04/16/22 00:24 Last Admin: 03/17/22 20:29 Dose: 0.5 mg Morphine Sulfate (Morphine Sulfate 4 Mg/Ml 1 Ml Carp\Vial) 4 mg IV Q4H PRN PRN Reason: Pain Stop: 03/31/22 00:24 Nitroglycerin (Nitroglycerin Sl 0.4 Mg/Tab Tab) 0.4 mg SL UD PRN PRN Reason: Chest Pain Stop: 04/16/22 00:24 Nystatin (Nystatin Powder 15gm Btl) 1 appln EXT BID [facility] Stop: 04/16/22 01:29 Last Admin: 03/18/22 07:55 Dose: 1 appln Pantoprazole Sodium (Pantoprazole 40 Mg Tab) 40 mg PO QAM [facility] Stop: 04/16/22 08:59 Last Admin: 03/18/22 07:56 Dose: 40 mg Potassium Chloride (Potassium Chloride 20 Meq/15 Ml Udc) 40 meq PO BID [facility] Stop: 04/16/22 08:59 Last Admin: 03/18/22 07:56 Dose: 40 meq Psyllium Hydrophilic Mucilloid (Psyllium Or Guar Gum Fiber Powder Packet) 1 pkt PO DAILY PRN PRN Reason: Constipation Stop: 04/16/22 00:43 Spironolactone (Spironolactone 25 Mg Tab) 75 mg PO QDD [facility] Stop: 04/16/22 16:29 Last Admin: 03/17/22 17:25 Dose: 75 mg Tramadol HCl (Tramadol Hcl 50 Mg Tablet) 25 - 50 mg PO Q4H PRN PRN Reason: Pain Stop: 04/16/22 00:24 Last Admin: 03/17/22 18:15 Dose: 50 mg (1) Chest pain Chest pain type: unspecified Qualified Code(s): R07.9 - Chest pain, unspecified
[2022-03-18] MEDS: FUROSEMIDE 40 MG/4 ML VIAL IV SCH ×2 (09:14→20:07)
--- NOTE | 2022-03-18 10:53 | Cardiology Progress Note ---
Date of Service March 18, 2022 Assessment & Plan (1) Right-sided congestive heart failure: (2) Cor pulmonale (chronic): (3) HTN (hypertension): (4) Volume overload: Plan Patient admitted for multifactorial volume overload with worsening volume status after taking requip. Upon admission, patient reported great improvement after several doses of IV diuretics. Unfortunately diuretics were not given yesterday due to ordering mixup. She reports worsening fluid retention today. IV furosemide 40 mg twice daily resumed. Continue spironolactone. Supplement electrolytes echo ordered and results pending 1500 ml Fluid restrcition encouraged. daily weight encouraged. Case discussed with Dr. tony. will follow. Admission and Anticipated Discharge Date Admission Date: March 16, 2022 Subjective Patient is an 81-year-old female resting comfortably in bed. She reports worsening fluid retention today with associated shortness of breath. Per nursing staff, furosemide was not given yesterday due to mixup in the orders. She just received first dose this morning. Weight also trended up slightly yesterday after not receiving diuretics. Review of Systems Review of Systems: All systems reviewed & are unremarkable except as noted in HPI & below Physical Exam Constitutional: WD/WN, vitals as above Respiratory: normal respiratory effort, lungs clear to auscultation Cardiovascular: Rate/Rhythm: regular rate and regular rhythm Heart Sounds: + murmur (II/ systolic murmur) Vessels: no JVD Extremities: + edema (2+ chronic lymphedematous changes) Gastrointestinal (Abdomen): normal bowel sounds, soft, nontender, no hepatosplenomegaly Neurologic: PERRL, EOMI, accommodation nl, no face palsy, no dysarthria Results & Data ([facility]) Vital Signs (Past 12 Hours) Vital Signs Temp Pulse Pulse Pulse Resp BP Pulse Ox 03/18/22 07:44 36.6 C 67 18 144/82 H 100 03/18/22 03:13 36.4 C L 65 16 148/82 H 98 03/17/22 23:43 36.8 C 80 17 127/71 95 03/17/22 23:00 69 O2 Del Method O2 Flow Rate 03/18/22 07:44 Nasal Cannula 2 03/18/22 03:13 Nasal Cannula 2 03/17/22 23:43 Room Air 03/17/22 23:00 Laboratory Results CBC 03/18/22 Range/Units 06:26 WBC 4.96 (4.8-10.8) K/ul RBC 4.26 (3.93-5.22) M/uL Hgb 13.0 (12.0-16.0) g/dl Hct 40.2 (34.1-44.9) % Plt Count 301 (130-400) K/uL Neut # (Auto) 2.71 (1.4-6.5) K/uL Lymph # (Auto) 1.44 (1.2-3.4) K/uL [place] # (Auto) 0.57 (0.24-0.82) K/uL Eos # (Auto) 0.12 (0-0.50) K/uL Baso # (Auto) 0.04 (0-0.2) K/uL Comprehensive Metabolic Panel 03/18/22 Range/Units 06:26 Sodium 139 (136-145) mmol/L Potassium 4.0 (3.5-5.1) mmol/L Chloride 104 (98-107) mmol/L Carbon Dioxide 29 (21-32) mmol/L BUN 26 H (6-23) mg/dl Creatinine 0.98 (0.6-1.2) mg/dl Glucose 108 H (70-99(Fasting)) mg/dl Calcium 9.4 (8.5-10.1) mg/dl Intake and Output 03/17/22 03/18/22 03/18/22 22:59 06:59 14:59 Intake Total 340 / 390 50 / 390 Output Total 475 / 1325 200 / 1325 Balance -135 / -935 -150 / -935 Intake: Oral 340 / 390 50 / 390 Output: Urine Amount (Catheter) 475 / 675 200 / 675 Wallace/Indwelling 475 / 675 200 / 675 Other: Weight 114.9 kg Weight Measurement Method Built in [facility] Diagnostic Findings Telemetry reviewed: Normal sinus rhythm with occasional PVCs ranging 60 to 70 bpm. Medications Administered Current Inpatient Medications Acetaminophen (Acetaminophen 325 Mg Tab) 650 mg PO Q4H PRN PRN Reason: Pain or Fever Stop: 04/16/22 00:24 Aspirin (A[facility]in 81 Mg [facility]ab) [facility] [place]: 04/16/22 08:59 Last Admin: 03/18/22 07:56 Dose: 81 mg Diclofenac Sodium (Diclofenac Sod 1% Gel 100 Gm Tube) 4 gm EXT BID PRN; Protocol PRN Reason: Pain Stop: 04/16/22 00:24 Last Admin: 03/18/22 07:55 Dose: 4 gm Docusate Sodium (Docusate Sodium 100 Mg Cap) 100 mg PO BIDM [facility] Stop: 04/16/22 07:59 Last Admin: 03/18/22 07:56 Dose: 100 mg Enoxaparin Sodium (Enoxaparin Inj 40 Mg/0.4 Ml Syr) 40 mg SQ QAM [facility] Stop: 04/16/22 08:59 Last Admin: 03/18/22 07:56 Dose: 40 mg Escitalopram Oxalate (Escitalopram Oxalate 10 Mg Tab) 5 mg PO DAILY [facility] Stop: 04/16/22 08:59 Last Admin: 03/18/22 07:56 Dose: 5 mg Fenofibrate (Fenofibrate Nanocrystallized 145 Mg Tablet) 145 mg PO PM [facility] Stop: 04/16/22 20:59 Last Admin: 03/17/22 20:30 Dose: 145 mg Furosemide (Furosemide 40 Mg/4 Ml Vial) 40 mg IV BID [facility] Stop: 04/17/22 08:59 Last Admin: 03/18/22 09:14 Dose: 40 mg Promethazine HCl 12.5 mg/ (Sodium Chloride) 50.5 mls @ 202 mls/hr IV Q6H PRN PRN Reason: Nausea And Vomiting Stop: 04/16/22 00:24 Lorazepam (Lorazepam 0.5 Mg Tab) 0.5 mg PO HS [facility] Stop: 04/16/22 00:24 Last Admin: 03/17/22 20:29 Dose: 0.5 mg Morphine Sulfate (Morphine Sulfate 4 Mg/Ml 1 Ml Carp\Vial) 4 mg IV Q4H PRN PRN Reason: Pain Stop: 03/31/22 00:24 Nitroglycerin (Nitroglycerin Sl 0.4 Mg/Tab Tab) 0.4 mg SL UD PRN PRN Reason: Chest Pain Stop: 04/16/22 00:24 Nystatin (Nystatin Powder 15gm Btl) 1 appln EXT BID [facility] Stop: 04/16/22 01:29 Last Admin: 03/18/22 07:55 Dose: 1 appln Pantoprazole Sodium (Pantoprazole 40 Mg Tab) 40 mg PO QAM [facility] Stop: 04/16/22 08:59 Last Admin: 03/18/22 07:56 Dose: 40 mg Potassium Chloride (Potassium Chloride 20 Meq/15 Ml Udc) 40 meq PO BID [facility] Stop: 04/16/22 08:59 Last Admin: 03/18/22 07:56 Dose: 40 meq Psyllium Hydrophilic Mucilloid (Psyllium Or Guar Gum Fiber Powder Packet) 1 pkt PO DAILY PRN PRN Reason: Constipation Stop: 04/16/22 00:43 Spironolactone (Spironolactone 25 Mg Tab) 75 mg PO QDD [facility] Stop: 04/16/22 16:29 Last Admin: 03/17/22 17:25 Dose: 75 mg Tramadol HCl (Tramadol Hcl 50 Mg Tablet) 25 - 50 mg PO Q4H PRN PRN Reason: Pain Stop: 04/16/22 00:24 Last Admin: 03/17/22 18:15 Dose: 50 mg
[2022-03-18] MEDS: GABAPENTIN 100 MG CAP PO SCH (13:51)
[2022-03-18] MEDS: SPIRONOLACTONE 25 MG TAB PO SCH (17:25)
[2022-03-18] MEDS: FENOFIBRATE NANOCRYSTALLIZED 145 MG TABLET PO SCH (20:06)
[2022-03-18] MEDS: LORazepam 0.5 MG TAB PO SCH (20:10)
[2022-03-19] MEDS: DOCUSATE SODIUM 100 MG CAP PO SCH (08:11)
[2022-03-19] MEDS: PANTOprazole 40 MG TAB PO SCH (08:12)
[2022-03-19] MEDS: ASPIRIN 81 MG ECTAB PO SCH (08:12)
[2022-03-19] MEDS: GABAPENTIN 100 MG CAP PO SCH (08:12)
[2022-03-19] MEDS: ESCITALOPRAM OXALATE 10 MG TAB PO SCH (08:14)
[2022-03-19] MEDS: FUROSEMIDE 40 MG/4 ML VIAL IV SCH (08:14)
[2022-03-19] MEDS: POTASSIUM CHLORIDE 20 MEQ/15 ML UDC PO SCH (08:15)
[2022-03-19] MEDS: NYSTATIN POWDER 15GM BTL EXT SCH (08:15)
[2022-03-19] MEDS: ENOXAPARIN INJ 40 MG/0.4 ML SYR SQ SCH (08:15)
[2022-03-19 08:17] LABS: BUN Creatinine Ratio 28.9 (10-20); Calcium 9.4 mg/dl (8.5-10.1); Creatinine Clr Calc Pharmacy 53.8 ml/min; Est GFR (Non-African American) 59.5 ml/min; Magnesium 2.1 mg/dl (1.7-2.4); Potassium 3.8 mmol/L (3.5-5.1)
--- NOTE | 2022-03-19 08:54 | Cardiology Progress Note ---
Date of Service March 19, 2022 Assessment & Plan (1) Right-sided congestive heart failure: (2) Cor pulmonale (chronic): (3) HTN (hypertension): (4) Volume overload: Plan Patient admitted for multifactorial volume overload with worsening volume status after taking requip. Upon admission, patient reported great improvement after several doses of IV diuretics. Weight trending down. Close to baseline Acceptable for discharge today from cardiac perspective. would continue home diuretics on discharge including Bumex 2 mg TID, spironolactone 100 mg in AM and 75 mg in PM, metolazone 5 mg - 3 times per week. Echo with stable findings, no acute changes. 1500 ml Fluid restriction encouraged. daily weight encouraged. Case discussed with Dr. tony. Will arrange 2-4 week cardiology follow up at [facility] for recheck. Admission and Anticipated Discharge Date Admission Date: March 16, 2022 Subjective Patient resting in bed comfortably. Improved dyspnea and volume status since yesterday. aggressive diuresis overnight. No chest pain or SOB. Weight trending down. Anxious for discharge. Feels gabapentin helped her symptoms yesterday, but then worsened last night. Requesting possible PM dose as well. Review of Systems Review of Systems: All systems reviewed & are unremarkable except as noted in HPI & below Physical Exam Physical Exam: Sitting at the edge of the bed without any acute distress but very anxious Constitutional: WD/WN, vitals as above well developed, well nourished, + ill appearing and + morbidly obese Eyes: PERRL, conjunctivae normal, anicteric sclerae ENMT: external ear and nose normal, oropharynx normal Neck: trachea midline, no thyromegaly Respiratory: normal respiratory effort, lungs clear to auscultation Auscultation: + diminished lung sounds Cardiovascular: Rate/Rhythm: regular rate and regular rhythm Heart Sounds: + murmur (II/ systolic murmur) Vessels: no JVD Extremities: + edema (2+ chronic lymphedematous changes) Gastrointestinal (Abdomen): normal bowel sounds, soft, nontender, no hep atosplenomegaly Inspection/Auscultation: normal bowel sounds; abdomen not distended Percussion/Palpation: abdomen soft; abdomen nontender Neurologic: PERRL, EOMI, accommodation nl, no face palsy, no dysarthria Psychiatric: A+Ox3, euthymic affect Lymphatic: no cervical or axillary lymphadenopathy Results & Data ([facility]) Vital Signs (Past 12 Hours) Vital Signs Temp Pulse Pulse Resp BP Pulse Ox O2 Del Method 03/19/22 03:56 36.7 C 67 12 139/82 98 Nasal Cannula 03/18/22 23:50 36.5 C 65 12 110/70 97 Room Air 03/18/22 23:03 67 03/18/22 22:26 Nasal Cannula O2 Flow Rate 03/19/22 03:56 2 03/18/22 23:50 03/18/22 23:03 03/18/22 22:26 2 Laboratory Results Comprehensive Metabolic Panel 03/19/22 Range/Units 07:16 Sodium 137 (136-145) mmol/L Potassium 3.8 (3.5-5.1) mmol/L Chloride 103 (98-107) mmol/L Carbon Dioxide 28 (21-32) mmol/L BUN 26 H (6-23) mg/dl Creatinine 0.90 (0.6-1.2) mg/dl Glucose 110 H (70-99(Fasting)) mg/dl Calcium 9.4 (8.5-10.1) mg/dl Intake and Output 03/18/22 03/19/22 03/19/22 22:59 06:59 14:59 Output Total 1000 / 2575 275 / 2575 Balance -1000 / -2575 -275 / -2575 Output: Urine Amount (Catheter) 1000 / 2575 275 / 2575 Wallace/Indwelling 1000 / 2575 275 / 2575 Other: Weight 111.9 kg Weight Measurement Method Built in [facility] Diagnostic Findings Telemetry reviewed: NSR in the 's. Rare PVC Echo report reviewed from 03/18/22: Normal LV chamber size, mild concentric LVH normal LV systolic function with EF 55-60% No segmental LV wall motion abnormalities are noted. aortic valve scerlosis mild, without significant aortic valvular stenosis. Medications Administered Current Inpatient Medications Acetaminophen (Acetaminophen 325 Mg Tab) 650 mg PO Q4H PRN PRN Reason: Pain or Fever Stop: 04/16/22 00:24 Aspirin (Aspirin 81 Mg Ectab) 81 mg PO QAM [facility] Stop: 04/16/22 08:59 Last Admin: 03/19/22 08:12 Dose: 81 mg Diclofenac Sodium (Diclofenac Sod 1% Gel 100 Gm Tube) 4 gm EXT BID PRN; Protocol PRN Reason: Pain Stop: 04/16/22 00:24 Last Admin: 03/18/22 22:10 Dose: 4 gm Docusate Sodium (Docusate Sodium 100 Mg Cap) 100 mg PO BIDM [facility] Stop: 04/16/22 07:59 Last Admin: 03/19/22 08:11 Dose: Not Given Enoxaparin Sodium (Enoxaparin Inj 40 Mg/0.4 Ml Syr) 40 mg SQ QAM [facility] Stop: 04/16/22 08:59 Last Admin: 03/19/22 08:15 Dose: 40 mg Escitalopram Oxalate (Escitalopram Oxalate 10 Mg Tab) 5 mg PO DAILY [facility] Stop: 04/16/22 08:59 Last Admin: 03/19/22 08:14 Dose: 5 mg Fenofibrate (Fenofibrate Nanocrystallized 145 Mg Tablet) 145 mg PO PM [facility] Stop: 04/16/22 20:59 Last Admin: 03/18/22 20:06 Dose: 145 mg Furosemide (Furosemide 40 Mg/4 Ml Vial) 40 mg IV BID [facility] Stop: 04/17/22 08:59 Last Admin: 03/19/22 08:14 Dose: 40 mg Gabapentin (Gabapentin 100 Mg Cap) 100 mg PO QAM [facility] Stop: 04/17/22 12:44 Last Admin: 03/19/22 08:12 Dose: 100 mg Promethazine HCl 12.5 mg/ (Sodium Chloride) 50.5 mls @ 202 mls/hr IV Q6H PRN PRN Reason: Nausea And Vomiting Stop: 04/16/22 00:24 Lorazepam (Lorazepam 0.5 Mg Tab) 0.5 mg PO HS [facility] Stop: 04/16/22 00:24 Last Admin: 03/18/22 20:10 Dose: 0.5 mg Morphine Sulfate (Morphine Sulfate 4 Mg/Ml 1 Ml Carp\Vial) 4 mg IV Q4H PRN PRN Reason: Pain Stop: 03/31/22 00:24 Nitroglycerin (Nitroglycerin Sl 0.4 Mg/Tab Tab) 0.4 mg SL UD PRN PRN Reason: Chest Pain Stop: 04/16/22 00:24 Nystatin (Nystatin Powder 15gm Btl) 1 appln EXT BID [facility] Stop: 04/16/22 01:29 Last Admin: 03/19/22 08:15 Dose: 1 appln Pantoprazole Sodium (Pantoprazole 40 Mg Tab) 40 mg PO QAM [facility] Stop: 04/16/22 08:59 Last Admin: 03/19/22 08:12 Dose: 40 mg Potassium Chloride (Potassium Chloride 20 Meq/15 Ml Udc) 40 meq PO BID [facility] Stop: 04/16/22 08:59 Last Admin: 03/19/22 08:15 Dose: 40 meq Psyllium Hydrophilic Mucilloid (Psyllium Or Guar Gum Fiber Powder Packet) 1 pkt PO DAILY PRN PRN Reason: Constipation Stop: 04/16/22 00:43 Spironolactone (Spironolactone 25 Mg Tab) 75 mg PO QDD [facility] Stop: 04/16/22 16:29 Last Admin: 03/18/22 17:25 Dose: 75 mg Tramadol HCl (Tramadol Hcl 50 Mg Tablet) 25 - 50 mg PO Q4H PRN PRN Reason: Pain Stop: 04/16/22 00:24 Last Admin: 03/17/22 18:15 Dose: 50 mg
--- NOTE | 2022-03-19 12:31 | Hospitalist Progress Note ---
Date of Service March 19, 2022 Assessment & Plan (1) Right-sided congestive heart failure: Plan: Possible Acute diastolic RV CHF Presented with shortness of breath and chest tightness Right-sided heart failure (EF 55 to 59%, TTE 2014)/sleep disordered breathing on nocturnal supplemental O2/pulmonary hypertension Chronic lymphedema as per records Significant fluid retention symptom after initiation of pregabalin and ropinirole for RLS Has been started on intravenous Lasix 40 mg IV twice daily Recoup has been discontinued She has been feeling much better Appreciate cardiology input and recommendation Echo of the heart on 03/18/2022 showed-normal LV chamber size with mild concentric LVH, LV systolic function is to 55 to 60%, no segmental wall motion abnormalities, aortic valve sclerosis mild without significant aortic valve stenosis Strict I/Os, daily weights, CHF education, fluid restriction Missed Lasix yesterday and that was started since this morning 40 mg IV twice daily Cumulative fluid balance is -3.6 L We will continue with current management Has had PT and OT evaluation and recommended PCF with continued physical therapy She will be transferred to [facility] this afternoon (2) Chest pain: Plan: Relieved by nitroglycerin Serial troponins have been unremarkable Doubt any ACS Valvular heart disease (moderate MR/TR TTE 2014), Will check echo to evaluate LV function and valvular heart disease status Normal systolic function and no significant valvular abnormalities Echo on 03/18/2022 is as above (3) Restless leg syndrome: Plan: Has been on pregabalin and Requip Likely the cause for fluid retention Requip and pregabalin are on hold We will continue Ultram Started on gabapentin 100 mg daily to see if that improves leg pain Gabapentin is helping and will continue with 100 mg twice daily (4) Cor pulmonale (chronic): Plan: Has cor pulmonale-improved Will need Lasix as advised (5) HTN (hypertension): Plan: HTN, stable Hyperglycemia rule out DM Check hemoglobin A1c DVT prophylaxis. Lovenox subcu DNR Admission and Anticipated Discharge Date Admission Date: March 16, 2022 Subjective 03/17/2022 The patient was seen and examined in telemetry unit She was admitted with shortness of breath and chest pain/pressure she has been sitting at the edge of the bed and denies any more chest pain Still has shortness of breath with ambulation 03/18/2022 The patient was seen and examined in telemetry unit She has been feeling a little short of breath today and she did not get any Lasix yesterday Still complains to have restless legs 03/19/2022 The patient was seen and examined in telemetry unit She has been feeling much better and her restless leg syndrome is much better with gabapentin Denies any chest pain, palpitation or shortness of breath She has been ambulating well Review of Systems Review of Systems: All systems reviewed and are unremarkable except as noted below Respiratory: Minimal shortness of breath at rest Physical Exam Physical Exam: Sitting at the edge of the bed without any acute distress but very anxious Constitutional: well developed, well nourished, + ill appearing and + morbidly obese Eyes: PERRL, conjunctivae normal, anicteric sclerae ENMT: external ear and nose normal, oropharynx normal Neck: trachea midline, no thyromegaly Respiratory: + respiratory distress (Minimal distress at rest) Auscultation: + diminished lung sounds and + crackles (Occasional crackles at the bases) Cardiovascular: Rate/Rhythm: regular rate and regular rhythm; not tachycardic Heart Sounds: normal S1, normal S2 and + murmur (2/6 ESM over precordium) Extremities: + edema (Bilateral leg edema and lymphedema) Gastrointestinal (Abdomen): Inspection/Auscultation: normal bowel sounds; abdomen not distended Percussion/Palpation: abdomen soft; abdomen nontender Musculoskeletal: No acute arthritis in any joint Neurologic: Alert, awake and oriented x3. No focal sensory or no motor deficit appreciated Psychiatric: A+Ox3, euthymic affect Lymphatic: no cervical or axillary lymphadenopathy Results & Data Results & [facility]) Vital Signs (Past 12 Hours) Vital Signs Temp Pulse Pulse Pulse Resp BP Pulse Ox 03/19/22 11:00 36.5 C 61 20 107/66 96 03/19/22 11:00 65 03/19/22 11:00 03/19/22 07:17 36.4 C L 64 18 110/65 99 03/19/22 03:56 36.7 C 67 12 139/82 98 O2 Del Method O2 Flow Rate 03/19/22 11:00 Room Air 03/19/22 11:00 03/19/22 11:00 Nasal Cannula 2 03/19/22 07:17 03/19/22 03:56 Nasal Cannula 2 Laboratory Results BMP 03/19/22 07:16 Sodium 137 Potassium 3.8 Chloride 103 Carbon Dioxide 28 BUN 26 H Creatinine 0.90 Glucose 110 H Calcium 9.4 Medications Administered Current Inpatient Medications Acetaminophen (Acetaminophen 325 Mg Tab) 650 mg PO Q4H PRN PRN Reason: Pain or Fever Stop: 04/16/22 00:24 Last Admin: 03/19/22 11:21 Dose: 650 mg Aspirin (Aspirin 81 Mg Ectab) 81 mg PO QAM [facility] Stop: 04/16/22 08:59 Last Admin: 03/19/22 08:12 Dose: 81 mg Diclofenac Sodium (Diclofenac Sod 1% Gel 100 Gm Tube) 4 gm EXT BID PRN; Protocol PRN Reason: Pain Stop: 04/16/22 00:24 Last Admin: 03/18/22 22:10 Dose: 4 gm Docusate Sodium (Docusate Sodium 100 Mg Cap) 100 mg PO BIDM [facility] Stop: 04/16/22 07:59 Last Admin: 03/19/22 08:11 Dose: Not Given Enoxaparin Sodium (Enoxaparin Inj 40 Mg/0.4 Ml Syr) 40 mg SQ QAM [facility] Stop: 04/16/22 08:59 Last Admin: 03/19/22 08:15 Dose: 40 mg Escitalopram Oxalate (Escitalopram Oxalate 10 Mg Tab) 5 mg PO DAILY [facility] Stop: 04/16/22 08:59 Last Admin: 03/19/22 08:14 Dose: 5 mg Fenofibrate (Fenofibrate Nanocrystallized 145 Mg Tablet) 145 mg PO PM [facility] Stop: 04/16/22 20:59 Last Admin: 03/18/22 20:06 Dose: 145 mg Furosemide (Furosemide 40 Mg/4 Ml Vial) 40 mg IV BID [facility] Stop: 04/17/22 08:59 Last Admin: 03/19/22 08:14 Dose: 40 mg Gabapentin (Gabapentin 100 Mg Cap) 100 mg PO BID [facility] Stop: 04/18/22 20:59 Promethazine HCl 12.5 mg/ (Sodium Chloride) 50.5 mls @ 202 mls/hr IV Q6H PRN PRN Reason: Nausea And Vomiting Stop: 04/16/22 00:24 Lorazepam (Lorazepam 0.5 Mg Tab) 0.5 mg PO HS [facility] Stop: 04/16/22 00:24 Last Admin: 03/18/22 20:10 Dose: 0.5 mg Morphine Sulfate (Morphine Sulfate 4 Mg/Ml 1 Ml Carp\Vial) 4 mg IV Q4H PRN PRN Reason: Pain Stop: 03/31/22 00:24 Nitroglycerin (Nitroglycerin Sl 0.4 Mg/Tab Tab) 0.4 mg SL UD PRN PRN Reason: Chest Pain Stop: 04/16/22 00:24 Nystatin (Nystatin Powder 15gm Btl) 1 appln EXT BID [facility] Stop: 04/16/22 01:29 Last Admin: 03/19/22 08:15 Dose: 1 appln Pantoprazole Sodium (Pantoprazole 40 Mg Tab) 40 mg PO QAM [facility] Stop: 04/16/22 08:59 Last Admin: 03/19/22 08:12 Dose: 40 mg Potassium Chloride (Potassium Chloride 20 Meq/15 Ml Udc) 40 meq PO BID [facility] Stop: 04/16/22 08:59 Last Admin: 03/19/22 08:15 Dose: 40 meq Psyllium Hydrophilic Mucilloid (Psyllium Or Guar Gum Fiber Powder Packet) 1 pkt PO DAILY PRN PRN Reason: Constipation Stop: 04/16/22 00:43 Spironolactone (Spironolactone 25 Mg Tab) 75 mg PO QDD [facility] Stop: 04/16/22 16:29 Last Admin: 03/18/22 17:25 Dose: 75 mg Tramadol HCl (Tramadol Hcl 50 Mg Tablet) 25 - 50 mg PO Q4H PRN PRN Reason: Pain Stop: 04/16/22 00:24 Last Admin: 03/17/22 18:15 Dose: 50 mg (1) Chest pain Chest pain type: unspecified Qualified Code(s): R07.9 - Chest pain, unspecified
--- NOTE | 2022-03-19 18:26 | Discharge Summary ---
Date of Service March 19, 2022 Admission HPI Per Admitting Provider History obtained from patient and records. Medical history significant for right-sided heart failure (EF 55 to 59%, TTE 2014), sleep disordered breathing on nocturnal supplemental O2/pulmonary hypertension, valvular heart disease (moderate MR/TR TTE 2014), HTN, anxiety, RLS, chronic lymphedema as per records. Last confinement May 2018 for hip pain/sacral insufficiency fracture. Patient seen at PCP's office last month for restless legs. PCP initiated pregabalin after discussing potential for worsening lower extremity edema. Worsening leg swelling and fluid retention with pregabalin after a taking medication for a few days. Patient later switched to ropinirole. Weight gain of about 10 pounds in the last 3 weeks since starting ropinirole. Abdominal distention, exertional SOB, and leg swelling. No response to additional diuretic Rx. Patient still waiting for PCP to answer her question about stopping pain arrival. This morning patient experienced transient palpitations without chest pain/SOB. Patient had substernal heaviness described as an elephant sitting on her chest with shortness of breath symptoms a few hours ago. Prior episode many years ago as per patient. Some improvement of substernal heaviness after EMS administration of nitroglycerin. Patient currently comfortable at the ER. MEDICAL HISTORY: SURGICAL HISTORY: appendectomy, cholecystectomy, cataract surgery, D&C, BTL, tear duct surgery, tonsillectomy FAMILY HISTORY: There is a family history of heart disease, colon cancer, DM. PERSONAL /SOCIAL HISTORY: Nonsmoker. 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 Admission Exam Per Admitting Provider Physical Exam: GENERAL: Comfortable, morbidly obese, no respiratory distress SKIN: Normal color, warm HEENT: Bespectacled, pink palpebral conjunctivae, no ptosis, moist buccal mucosa NECK : Supple, short neck, no tenderness CHEST : Decreased breath sounds, no tenderness HEART : RRR, no obvious murmurs ABDOMEN: distention, nontender EXTREMITIES : Bilateral LE swelling, no LE tenderness, no other conspicuous deformities noted NEUROLOGIC : Coherent, no facial asymmetry, no other gross focality Principal Diagnosis Right-sided congestive heart failure, cor pulmonale, hypertension, restless leg syndrome Discharge Exam Sitting at the edge of the bed without any acute distress but very anxious Constitutional well developed, well nourished, + ill appearing and + morbidly obese Eyes PERRL, conjunctivae normal, anicteric sclerae ENMT external ear and nose normal, oropharynx normal Neck trachea midline, no thyromegaly Respiratory + respiratory distress (Minimal distress at rest) Auscultation: + diminished lung sounds and + crackles (Occasional crackles at the bases) Cardiovascular Rate/Rhythm: regular rate and regular rhythm; not tachycardic Heart Sounds: normal S1, normal S2 and + murmur (2/6 ESM over precordium) Extremities: + edema (Bilateral leg edema and lymphedema) Gastrointestinal (Abdomen) Inspection/Auscultation: normal bowel sounds; abdomen not distended Percussion/Palpation: abdomen soft; abdomen nontender Psychiatric A+Ox3, euthymic affect Lymphatic no cervical or axillary lymphadenopathy Discharge Data Allergies Allergy/AdvReac Type Severity Reaction Status Date / Time demeclocycline Allergy Unknown ON Verified 03/16/22 21:12 [facility] sulfamethoxazole Allergy Unknown ON Verified 03/16/22 21:12 [facility] trimethoprim Allergy Unknown ON Verified 03/16/22 21:12 [facility] ropinirole AdvReac Intermediate fluid Verified 03/17/22 02:04 retention pregabalin [From Lyrica] AdvReac Mild Verified 03/17/22 02:04 Consultations 03/16/22 22:31 ED Decision to Admit Stat 03/17/22 00:25 Consult Cardiology Routine Ordered Studies 03/16/22 20:41 CT angio chest PE protocol Urgent 03/16/22 23:23 US abdomen ltd ascites Urgent Hospital Course (1) Right-sided congestive heart failure: Possible Acute diastolic RV CHF Presented with shortness of breath and chest tightness Right-sided heart failure (EF 55 to 59%, TTE 2014)/sleep disordered breathing on nocturnal supplemental O2/pulmonary hypertension Chronic lymphedema as per records Significant fluid retention symptom after initiation of pregabalin and ropinirole for RLS Has been started on intravenous Lasix 40 mg IV twice daily Recoup has been discontinued She has been feeling much better Appreciate cardiology input and recommendation Echo of the heart on 03/18/2022 showed-normal LV chamber size with mild concentric LVH, LV systolic function is to 55 to 60%, no segmental wall motion abnormalities, aortic valve sclerosis mild without significant aortic valve stenosis Strict I/Os, daily weights, CHF education, fluid restriction Missed Lasix yesterday and that was started since this morning 40 mg IV twice daily Cumulative fluid balance is -3.6 L We will continue with current management Has had PT and OT evaluation and recommended PCF with continued physical therapy She will be transferred to [facility] this afternoon (2) Chest pain: Relieved by nitroglycerin Serial troponins have been unremarkable Doubt any ACS Valvular heart disease (moderate MR/TR TTE 2014), Will check echo to evaluate LV function and valvular heart disease status Normal systolic function and no significant valvular abnormalities Echo on 03/18/2022 is as above (3) Restless leg syndrome: Has been on pregabalin and Requip Likely the cause for fluid retention Requip and pregabalin are on hold We will continue Ultram Started on gabapentin 100 mg daily to see if that improves leg pain Gabapentin is helping and will continue with 100 mg twice daily (4) Cor pulmonale (chronic): Has cor pulmonale-improved Will need Lasix as advised (5) HTN (hypertension): HTN, stable Hyperglycemia rule out DM Check hemoglobin A1c DVT prophylaxis. Lovenox subcu DNR Total Time Total Time Spent Total Time Spent (In Minutes): 40 minutes Discharge Plan Discharge Items Patient Disposition: Personal Intermediate Reason For Visit: CP,CHF Discharge Diagnosis: Right-sided congestive heart failure, cor pulmonale, hypertension, restless leg syndrome Condition on Discharge: Fair Activity: Resume your previous activity Non-emergency contact: Primary Care Provider Call non-emergency contact if: you have any medication questions Follow-up/Referrals: Adriana Lewis MD [Outside Practitioners] - 03/24/22 11:00 am (Date & Time 03/24/2022 11:00 AM Provider Adriana Lewis MD Department Family Practice [facility] ) [facility] Erick Galo [Primary Care Provider] - Diet: Heart Healthy Fluids: 1500ml (6 cups) Addtl Attending Provider Instructions: Please take precautions to avoid fall Take your medications as advised Please keep follow-up appointments with your healthcare provider Daily weight is recommended Pending Studies at Discharge: No Stand-Alone Forms: [employer], Smoking Cessation Skilled Items Patient informed of condition?: Yes DNR: Yes Discharge Level of Care: Other Communicable Disease: No Discharge Prognosis: Stable Lines: None Urinary Catheter: No Medications and DC Order Prescriptions: New gabapentin 100 mg Capsule 100 mg PO BID 30 Days Qty: 60 0RF spironolactone 100 mg tablet 100 mg PO QAM Qty: 30 0RF spironolactone 50 mg tablet 75 mg PO QPM Qty: 45 0RF Continued aspirin 81 mg tablet,delayed release (DR/EC) 81 mg PO QAM raloxifene 60 mg tablet 60 mg PO QAM omega [id number]-fish oil [Fish Oil] 1,000 mg (120 mg-180 mg) Capsule 1 cap PO TIDM metolazone 2.5 mg Tablet 2.5 mg PO [id number] Rx Instructions: TAKES MON, WED, & FRI IN mornings. Take 30 minutes before morning dose of bumex omeprazole 40 mg Capsule,Delayed Release(Dr/Ec) 40 mg PO QAM docusate sodium 100 mg Capsule 100 mg PO BIDM cholecalciferol (vitamin D3) [Vitamin D3] 10 mcg (400 unit) Tablet 20 mcg PO QAM fenofibrate 160 mg Tablet 160 mg PO PM Rx Instructions: Takes at 1600 bumetanide 2 mg tablet 2 mg PO TIDM Rx Instructions: TAKES AT 0800, 1200, & 1600 dextromethorphan-guaifenesin [Tussin DM] 10-100 mg/5 mL Liquid 10 ml PO Q4H PRN (Reason: Cough) lorazepam 0.5 mg Tablet 0.5 mg PO HS potassium chloride 40 mEq/15 mL liquid 40 meq PO ACHS escitalopram oxalate [Lexapro] 5 mg Tablet 5 mg PO DAILY diclofenac sodium 1 % Gel 4 g TOPICAL BID PRN (Reason: Pain) Slow Fe 142 mg (45 mg iron) Tablet Extended Release 142 mg PO DAILY PreserVision AREDS-2 250-90-40-1 mg Capsule 1 tab PO BIDM Reguloid (psyllium husk) 3 gram/5.4 gram Powder 1 tbsp PO DAILY PRN (Reason: Constipation) Rx Instructions: mix into at least 8 oz of water or juice before administering Discontinued ropinirole 2 mg tablet 2 mg PO QDL Rx Instructions: UNSURE IF THIS DOSE IS ALSO GIVEN WITH 1.5 MG DOSE FOR 7 DAYS. ropinirole 0.5 mg Tablet 1.5 mg PO QDL Rx Instructions: STARTED 03/14/22 FOR 7 DAYS spironolactone 50 mg tablet See Rx Instructions .ROUTE .COMPLEX Rx Instructions: 50 mg orally; TAKES 50 MG QAM, THEN 75 MG QDD. Discharge Orders: Discharge Order (Routine); Ordered 03/19/22 Ordered By: Gerri Freeman/Other Patient Handouts: Prediabetes, 5 Steps for Eating Healthier Admission Data Admit Date/Time: 03/16/22 23:29 Attending Provider: Gerri Engle Admit Provider: Juan Proctor Primary Care Provider: Erick Mark Other Providers: Juan Proctor ; Oliver Gregorio ; Hal Friedman ; Thomas Duran ; Truman Meyer ; Froilan Watson ; Ramón Carvajal ; Susan Hyatt ; Soledad Koch ; Perla Willingham ; Archie Lombardo Other Interventions: Discharge Summary Assessment (RN) Last Done: 03/19/22 14:55
[2022-03-19] MEDS ORDERED: GABAPENTIN 100 MG CAP PO SCH (21:00)
== END 2022-03-19 16:04 | disposition home or self-care (01) ==
LOC: ED 19:00 → INTOOBSV 23:29 → 2S 23:48
DX: G25.81 Restless legs syndrome; R07.9 Chest pain, unspecified; I11.0 Hypertensive heart disease with heart failure; Z88.2 Allergy status to sulfonamides; Z79.82 Long term (current) use of aspirin; Z79.899 Other long term (current) drug therapy; R73.9 Hyperglycemia, unspecified; I50.9 Heart failure, unspecified; I27.81 Cor pulmonale (chronic); Z88.1 Allergy status to other antibiotic agents

== ENCOUNTER 2023-07-12 19:22 | Inpatient (IN) ==
--- NOTE | 2023-07-12 19:36 | Emergency Department Note ---
ED Provider Note History of Present Illness Chief Complaint: Fall Stated Complaint: FALL, ANKLE DEFORMITY Time Seen by Provider: 07/12/23 19:35 This is an 83-year-old female with a history of CHF, sleep apnea on nocturnal oxygen, obesity, on aspirin, who presents to the emergency department via EMS for an injury to her right ankle region after a fall that occurred about 1 hour ago. Patient states that she was walking in the bathroom when she lost her balance and fell down essentially sitting on her ankle. She was on the floor for about 1 hour before EMS was able to transport her to the emergency department. She did not hit her head and remembers everything. She did not feel lightheaded or have any chest pain or shortness of breath before she fell. Denies any headache, neck pain, back pain, numbness tingling or weakness in her upper or lower extremities. No chest pain or shortness of breath. Does not take any blood thinners. Endorses an injury to her right ankle several years ago which did not require casting or surgery. Patient unsure when last tetanus shot was updated Patient resides at a personal fdc ([facility]) Home Medications Medication Instructions Recorded Confirmed Type aspirin 81 mg tablet,delayed 81 mg PO QAM 05/05/18 07/12/23 History release omega 1-hgt-rkl-fish oil 1,000 mg 1 cap PO TIDM 05/05/18 07/12/23 History (120 mg-180 mg) capsule (Fish Oil) raloxifene 60 mg tablet 60 mg PO QAM osteoporosis 05/05/18 07/12/23 History bumetanide 2 mg tablet 2 mg PO TIDM 12/30/19 07/12/23 History cholecalciferol (vitamin D3) 10 20 mcg PO QAM 12/30/19 07/12/23 History mcg (400 unit) tablet (Vitamin D3) docusate sodium 100 mg capsule 100 mg PO TIDM 12/30/19 07/12/23 History fenofibrate 160 mg tablet 160 mg PO QDD 12/30/19 07/12/23 History metolazone 2.5 mg tablet 2.5 mg PO 3XWK edema 12/30/19 07/12/23 History omeprazole 40 mg capsule,delayed 40 mg PO DAILYBB 12/30/19 07/12/23 History release dextromethorphan-guaifenesin 10 10 ml PO Q4H PRN Cough 03/16/22 07/12/23 History mg-100 mg/5 mL oral liquid (Tussin DM) lorazepam 0.5 mg tablet 0.5 mg PO HS 03/16/22 07/12/23 History potassium chloride 40 mEq/15 mL 40 meq PO ACHS 03/16/22 07/12/23 History oral liquid psyllium husk 3 gram/5.4 gram oral 1 tbsp PO DAILY PRN Constipation 03/16/22 07/12/23 History powder (Reguloid (psyllium husk)) vit C 250 mg-vit E 90 mg-zinc 40 1 tab PO BIDM 03/16/22 07/12/23 History mg-copper 1 uq-gsafpj-aomjjr capsule (PreserVision AREDS-2) atropine 1 % eye drops 1 drp OPR TID PRN Pain 07/12/23 07/12/23 History betamethasone dipropionate 0.05 % 1 applic topical BID 07/12/23 07/12/23 History topical cream escitalopram oxalate 10 mg tablet 10 mg PO QAM 07/12/23 07/12/23 History ferrous sulfate 142 mg (45 mg 142 mg PO QAM 07/12/23 07/12/23 History iron) tablet,extended release gabapentin 100 mg capsule 100 mg PO BIDM 07/12/23 07/12/23 History guaifenesin 600 mg tablet, 600 mg PO BID PRN Congestion 07/12/23 07/12/23 History extended release 12 hr (Mucus Relief ER) spironolactone 50 mg tablet See Rx Instructions .Route .COMPLEX 07/12/23 07/12/23 History Allergies Allergy/AdvReac Type Severity Reaction Status Date / Time demeclocycline Allergy Unknown ON Verified 07/12/23 19:36 [facility] sulfamethoxazole Allergy Unknown ON Verified 07/12/23 19:36 [facility] trimethoprim Allergy Unknown ON Verified 07/12/23 19:36 [facility] ropinirole AdvReac Intermediate fluid Verified 07/12/23 19:36 retention pregabalin [From Lyrica] AdvReac Mild Unknown Verified 07/12/23 19:36 Past Med/Surg History Medical History (Updated 07/12/23 @ 22:35 by JAMES Mays) Acute hip pain Nocturnal hypoxia Right-sided congestive heart failure Sacral insufficiency fracture Cor pulmonale (chronic) Lumbar stenosis with neurogenic claudication Chronic GERD Right heart failure Dependence on nocturnal oxygen therapy RADHA (obstructive sleep apnea) Dyslipidemia Morbid obesity with BMI of 40.0-44.9, adult Mitral valve prolapse Osteoporosis Chronic acquired lymphedema HTN (hypertension) Chronic back pain Surgical History Hx of cholecystectomy Status post lumbar spine surgery for decompression of spinal cord 2017 Dr. Wan Status post kyphoplasty L3, L4, L5 2018 Dr. Wan Status post tonsillectomy Status post cataract surgery Status post appendectomy Family History Father Family history of colon cancer Brother Family history of prostate cancer Brother Family history of coronary artery disease Sister Family history of coronary artery disease Brother Family history of diabetes mellitus Social History Smoking Status: Never smoker Second Hand Exposure: No; Do You Dip or Chew Tobacco: No; Hx Alcohol Use: No Hx Substance Use: No Preferred Language: Cypriot Communication Ability: Effective Investigator Fraud Required: No Beliefs That Will Affect Care: None marital status: Single Current Living Situation: Personal Care Facility Feels Safe at Home: Yes Assistive Devices: Walker and Wheelchair Physical Exam Vital Signs Vital Signs - 24 hr 07/12/23 19:34 07/12/23 19:34 07/12/23 19:41 Temperature 98.8 F 98.8 F Temperature Source Oral Oral Pulse Rate 69 96 H Pulse Rate [Bilateral] Respiratory Rate 18 18 Respiratory Depth Normal Blood Pressure 154/93 H Blood Pressure [Right Arm] 154/83 H Blood Pressure Mean 113 Blood Pressure Mean [Right Arm] 106 Pulse Oximetry 98 98 Oxygen Delivery Method Room Air Room Air Oxygen Flow Rate Sepsis Recent Fever Within 48 Hours No Sepsis New/Unexplained Change in Mental Status No Sepsis Action Taken by Nursing No Action Required 07/12/23 20:21 07/12/23 21:12 Temperature Temperature Source Pulse Rate Pulse Rate [Bilateral] 90 Respiratory Rate 20 Respiratory Depth Blood Pressure Blood Pressure [Right Arm] 132/76 Blood Pressure Mean Blood Pressure Mean [Right Arm] 94 Pulse Oximetry 92 96 Oxygen Delivery Method Room Air Nasal Cannula Oxygen Flow Rate 3 Sepsis Recent Fever Within 48 Hours Sepsis New/Unexplained Change in Mental Status Sepsis Action Taken by Nursing CONSTITUTIONAL: Well developed, well nourished, in no acute distress. HEAD: Normocephalic, atraumatic. NECK: Full active range of motion. No spinous process tenderness RESPIRATORY: Breathing unlabored and symmetric. Lungs clear to auscultation bilaterally. No wheeze, rales, or rhonchi. CARDIOVASCULAR: Regular rate and rhythm. No murmurs, rubs, or gallops. PT pulses 2+ bilaterally. CHEST: Nontender, no crepitus. ABDOMEN: Normal bowel sounds. Soft, nontender, no peritonitis. No masses. MUSCULOSKELETAL: Nonspecific tenderness elicited in the bilateral hips with bilateral compression. No obvious deformities. No pain elicited in the right hip with passive flexion or extension. Right lower extremity: There is an obvious deformity noted about the ankle. The skin is intact. There is tenderness in this region. There is also some ecchymosis about the great toe MTP joint with associated tenderness. Patient able to move all toes. Moves bilateral upper extremities at all joints without difficulty Back: No thoracic, lumbar, sacral spinous process tenderness. No step-off deformity. SKIN: [place], warm, dry. Superficial skin tear noted to the left elbow. No underlying bony tenderness NEUROLOGIC: Awake, alert, oriented x3. Gaze is conjugate. Face symmetric. Speech is normal. No sensory deficits in bilateral lower extremities. PSYCHIATRIC: Appropriate. Normal affect. Course Administered Medications Discontinued Medications Diphtheria/Pertussis/Tetanus Vacc (Diphtheria/Tetanus/Pertussis Vaccine (Tdap, Age 7+Yrs) 0.5ml Syr/Vl) 0.5 ml IM .ONCE ONE Stop: 07/12/23 20:08 Last Admin: 07/12/23 22:25 Dose: Not Given Documented By: NEW Fentanyl Citrate (Fentanyl Citrate Pf 100 Mcg/2 Ml Vial) 100 mcg IV NOW STA Stop: 07/12/23 20:22 Last Admin: 07/12/23 21:13 Dose: 100 mcg Documented By: NEW Acetaminophen (Ofirmev) 1,000 mg in 100 mls @ 400 mls/hr IV NOW STA Stop: 07/12/23 20:14 Last Infusion: 07/12/23 21:57 Dose: Infused Documented By: Admin: 07/12/23 20:29 Dose: 400 mls/hr Documented By: TBS Medical Decision Making Differential Diagnosis Fracture, dislocation, subluxation, sprain, strain, contusion, effusion, hematoma, neurovascular injury, tendon injury, compartment syndrome, abrasion, laceration, rhabdomyolysis, among other pathology Medical Records Attestation: I reviewed the patient's medical records. (Reviewed problem list) Laboratory Data 07/12/23 19:47 07/12/23 19:47 Lab Results 07/12/23 Range/Units 19:47 WBC 7.89 (4.8-10.8) K/ul RBC 4.75 (4.20-5.40) M/uL Hgb 14.4 (12.0-16.0) g/dl Hct 44.2 (37.0-47.0) % MCV 93.1 (80.0-100.0) fL MCH 30.3 (25.0-34.0) pg MCHC 32.6 (32.0-36.0) g/dL RDW Std Deviation 49.9 H (36.4-46.3) fL RDW Coeff of Vicki 14.6 H (11.5-14.5) % Plt Count 341 (130-400) K/uL MPV 10.4 (9.4-12.4) fL Immature Gran % (Auto) 1.1 % Neut % (Auto) 85.0 % Lymph % (Auto) 5.8 % Phelps % (Auto) 6.7 % Eos % (Auto) 0.8 % Baso % (Auto) 0.6 % Neut # (Auto) 6.70 H (1.40-6.50) K/uL Lymph # (Auto) 0.46 L (1.20-3.40) K/uL Phelps # (Auto) 0.53 (0.11-0.59) K/uL Eos # (Auto) 0.06 (0.00-0.50) K/uL Baso # (Auto) 0.05 (0.00-0.20) K/uL Immature Gran # (Auto) 0.09 (0.01-0.20) K/uL Sodium 136 (136-145) mmol/L Potassium 3.2 L (3.5-5.1) mmol/L Chloride 97 L (98-107) mmol/L Carbon Dioxide 28 (21-32) mmol/L Anion Gap 11 (3-11) BUN 24 H (6-23) mg/dl Creatinine 1.02 (0.6-1.2) mg/dl Est Cr Clr Drug Dosing 46.3 ml/min Est GFR ( Amer) 58.5 ml/min Est GFR (Non-Af Amer) 50.5 ml/min BUN/Creatinine Ratio 23.5 H (10-20) Glucose 164 H (70-99(Fasting)) mg/dl Calcium 10.7 H (8.6-10.3) mg/dl Magnesium 2.0 (1.7-2.4) mg/dl Total Bilirubin 0.3 (0.2-1.0) mg/dl AST 30 (13-39) U/L ALT 20 (7-52) U/L Alkaline Phosphatase 55 (34-104) U/L Total Creatine Kinase 36 (26-192) U/L Total Protein 7.2 (6.0-8.3) gm/dl Albumin 4.3 (3.4-5.0) gm/dl Globulin 2.9 (2.5-4.0) gm/dl Albumin/Globulin Ratio 1.5 (0.9-2) MDM Narrative 83-year-old female presents to the emergency department via EMS secondary to an injury to her right lower extremity after a fall that occurred while she was ambulating in the restroom today. Essentially the patient lost her balance and sat down on the right lower extremity. She did not hit her head and remembers everything. She is alert and oriented x3. Not on blood thinners. She clearly has deformity with ecchymosis noted to the ankle with some ecchymosis and tenderness about the first MTP. Nonspecific tenderness elicited in her hips, nothing convincing. Was not complaining of any pain in her hips. No additional injuries were identified. She does have good DP pulses bilaterally with no sensory changes in her toes. She is able to move her toes. IV was inserted and labs were obtained. X-rays of the lower extremity and pelvis were obtained. She was given IV Tylenol and a cool compress for pain control. She was kept NPO. Tdap updated. Skin tear on left elbow was cleaned and dressed by nursing staff. No indication for primary closure, very superficial and relatively small in nature. X-rays initially interpreted by myself: Right tibia/fibula: Fracture dislocation of the ankle Right ankle: Fracture dislocation with suspected distal fibular fracture Right foot: Suspected fracture to the proximal phalanx of the great toe Pelvis: Questionable shadow through the femoral head. Dedicated right hip: Questionable shadow through the femoral head without unconvincing for acute fracture Labs: no leukocytosis or anemia. Mild hypokalemia at 3.2 likely secondary to metolazone. No additional significant abnormalities. Case was reviewed with ED attending Dr. Yost who evaluated patient at bedside. Discussed risks and benefits of ankle reduction with the patient and she consented to attempting reduction at the bedside. She was given fentanyl and reduction was performed by Dr. Yost with my assistance yielding a good reduction. Patient was splinted in an Ortho-Glass short leg posterior and stirrup splint by sleep lab technologist under our supervision. Neurovascularly intact after reduction and application. I discussed the case with orthopedics on-call Dr. Garcia who recommends admission under medicine with Ortho consult. Discussed with Dr. Proctor hospitalist who agrees to meet the patient for management Impression Closed fracture dislocation of right ankle, Closed fracture of great toe, Fall, Skin tear of left elbow without complication Discharge Plan Visit Data Chief Complaint: Fall Stated Complaint: FALL, ANKLE DEFORMITY ED Provider: Ventura Yost ED Midlevel Provider: Chadwick Jason Discharge Problem: Closed fracture dislocation of right ankle, Closed fracture of great toe, Fall, Skin tear of left elbow without complication Patient Disposition: Admitted As Inpatient Condition: Good Forms Stand Alone Forms: [facility] [employer] Prescriptions Prescriptions: No Action aspirin 81 mg tablet,delayed release (DR/EC) 81 mg PO QAM raloxifene 60 mg tablet 60 mg PO QAM omega 7-szl-avn-fish oil [Fish Oil] 1,000 mg (120 mg-180 mg) Capsule 1 cap PO TIDM metolazone 2.5 mg Tablet 2.5 mg PO 3XWK Rx Instructions: TAKES MON, WED, & FRI IN mornings. Take 30 minutes before morning dose of bumex omeprazole 40 mg Capsule,Delayed Release(Dr/Ec) 40 mg PO DAILYBB docusate sodium 100 mg Capsule 100 mg PO TIDM cholecalciferol (vitamin D3) [Vitamin D3] 10 mcg (400 unit) Tablet 20 mcg PO QAM fenofibrate 160 mg Tablet 160 mg PO QDD Rx Instructions: Takes at 1600 bumetanide 2 mg tablet 2 mg PO TIDM Rx Instructions: TAKES AT 0800, 1200, & 1600 dextromethorphan-guaifenesin [Tussin DM] 10-100 mg/5 mL Liquid 10 ml PO Q4H PRN (Reason: Cough) lorazepam 0.5 mg Tablet 0.5 mg PO HS Rx Instructions: PT MAY DECLINE THIS MED potassium chloride 40 mEq/15 mL liquid 40 meq PO ACHS PreserVision AREDS-2 250-90-40-1 mg Capsule 1 tab PO BIDM Reguloid (psyllium husk) 3 gram/5.4 gram Powder 1 tbsp PO DAILY PRN (Reason: Constipation) Rx Instructions: mix into at least 8 oz of water or juice before administering betamethasone dipropionate 0.05 % cream 1 applic TOPICAL BID Rx Instructions: APPLY TO SCALP gabapentin 100 mg capsule 100 mg PO BIDM atropine 1 % drops 1 drp OPR TID PRN (Reason: Pain) escitalopram oxalate 10 mg tablet 10 mg PO QAM Slow Fe 142 mg (45 mg iron) Tablet Extended Release 142 mg PO QAM guaifenesin [Mucus Relief ER] 600 mg Tablet Extended Release 12hr 600 mg PO BID PRN (Reason: Congestion) spironolactone 50 mg tablet See Rx Instructions .ROUTE .COMPLEX Rx Instructions: TAKES 100 MG QAM, THEN 75 MG QDD. Referrals Referrals: Erick Mark [Non-Staff] - Discharge Problem: Closed fracture dislocation of right ankle Qualifiers: Encounter type: initial encounter Qualified Code(s): S82.891A - Other fracture of right lower leg, initial encounter for closed fracture Closed fracture of great toe Qualifiers: Encounter type: initial encounter Phalanx: proximal Fracture alignment: n ondisplaced Laterality: right Qualified Code(s): S92.414A - Nondisplaced fracture of proximal phalanx of right great toe, initial encounter for closed fracture Fall Qualifiers: Encounter type: initial encounter Qualified Code(s): W19.XXXA - Unspecified fall, initial encounter Skin tear of left elbow without complication Qualifiers: Encounter type: initial encounter Qualified Code(s): S51.012A - Laceration without foreign body of left elbow, initial encounter
[2023-07-12] MEDS ORDERED: ACETAMINOPHEN 1,000 MG/100 ML VIAL IV STA (20:00)
[2023-07-12] MEDS ORDERED: DIPHTHERIA/TETANUS/PERTUSSIS Vaccine (Tdap, Age 7+yrs) 0.5mL SYR/VL IM ONE ×2 (20:07→22:25)
[2023-07-12] MEDS ORDERED: fentaNYL citrate PF 100 MCG/2 ML VIAL IV STA (20:21)
[2023-07-12 20:34] LABS: Basophils # (auto) 0.05 K/uL (0.00-0.20); Basophils % (auto) 0.6 %; Eosinophils # (auto) 0.06 K/uL (0.00-0.50); Eosinophils % (auto) 0.8 %; Hematocrit (blood only) 44.2 % (37.0-47.0); Hemoglobin 14.4 g/dl (12.0-16.0); Immature Granulocytes # (auto) 0.09 K/uL (0.01-0.20); Immature Granulocytes % (auto) 1.1 %; Lymphocytes # (auto) 0.46 K/uL (1.20-3.40); Lymphocytes % (auto) 5.8 %; Mean Corpuscular Hemoglobin 30.3 pg (25.0-34.0); Mean Corpuscular Hgb Conc 32.6 g/dL (32.0-36.0); Mean Corpuscular Volume 93.1 fL (80.0-100.0); Mean Platelet Volume 10.4 fL (9.4-12.4); Monocytes # (auto) 0.53 K/uL (0.11-0.59); Monocytes % (auto) 6.7 %; Platelet Count 341 K/uL (130-400); RDW Coefficient of Variation 14.6 % (11.5-14.5); RDW Standard Deviation 49.9 fL (36.4-46.3); Red Blood Count 4.75 M/uL (4.20-5.40); White Blood Count 7.89 K/ul (4.8-10.8)
[2023-07-12 20:51] LABS: Albumin Globulin Ratio 1.5 (0.9-2); Albumin Level 4.3 gm/dl (3.4-5.0); BUN Creatinine Ratio 23.5 (10-20); Bilirubin,Total 0.3 mg/dl (0.2-1.0); Calcium 10.7 mg/dl (8.6-10.3); Creatinine Clr Calc Pharmacy 46.3 ml/min; Est GFR (African American) 58.5 ml/min; Est GFR (Non-African American) 50.5 ml/min; Globulin 2.9 gm/dl (2.5-4.0); Potassium 3.2 mmol/L (3.5-5.1); Total Protein 7.2 gm/dl (6.0-8.3)
[2023-07-12] MEDS ORDERED: POTASSIUM CHLORIDE CRTAB 20 MEQ TABCR PO STA (21:53)
--- NOTE | 2023-07-12 22:27 | Emergency Department Note ---
ED Visit Note Patient is an 83-year-old female who presents to the ER following a fall from standing onto her buttocks and ankle. She denies hitting her head. Was called to bedside for evaluation as she had fracture dislocation of the right ankle. Verbal and written consent were obtained for the reduction. She ate around 5 PM. Patient was given 100 mg of fentanyl. Following this she was still awake and talking I reduced her right ankle fracture dislocation. This was splinted with my assistance at bedside. She is neurovascularly intact following this. There is no breakthrough from the skin. Please see Chadwick's note for further disposition. PROCEDURE: Reduction of: right ankle fracture dislocation Verbal and written consent were obtained. The appropriate patient was identified as well as the appropriate ankle. I placed downward inline traction on the foot and the ankle was reduced. Patient tolerated the procedure well. I assisted with splinting. The reduction was confirmed via x-ray. Patient tolerated the procedure well. Neurovascular intact following the procedure. Patient denied any tingling or numbness following the procedure. . Procedures Orthopedic Fracture Reduction Fracture #1: Time Out Performed: Yes Side: right Fracture Reduction Location: other (ankle/tibia/fibula ) Analgesia: other (fentanyl) Technique: direct manipulation and traction/counter-traction Post Reduction X-rays Demonstrate: anatomical reduction Post-reduction neuro exam: intact Post-reduction vascular exam: intact Splint Applied: Yes Patient Tolerated Procedure: well
--- NOTE | 2023-07-13 00:35 | History & Physical Report ---
Date of Service July 13, 2023 Assessment & Plan (1) Closed fracture dislocation of right ankle: Plan: Secondary to mechanical fall Status post closed reduction at the ER right-sided heart failure (EF 55%, TTE 2021) sleep disordered breathing on nocturnal supplemental O2/pulmonary hypertension/CPAP intolerance HTN, currently stable prediabetes, hemoglobin A1c of 5.30 April 2023 chronic lymphedema as per records Hypokalemia secondary diuretic Rx OBS F Orthopedics consult Re: Dislocated right ankle fracture (ER provider already in touch with Dr. Garcia who recommends n.p.o. status in anticipation of procedure in a.m.) Replace potassium Hold home diuretics while patient n.p.o. PT OT eval postprocedure DVT prophylaxis. SCDs Re: Possible procedure DNR Text document was generated using Virtual Web voice recognition software. It may contain grammatical or spelling errors. Kindly contact undersigned for clarification of any documentation item in question. History of Present Illness Chief Complaint: Fall, right ankle pain Primary Care Provider: Adriana Lewis MD History obtained from patient and records. Medical history significant for right-sided heart failure (EF 55%, TTE 2021), sleep disordered breathing on nocturnal supplemental O2/pulmonary hypertension/CPAP intolerance, HTN, prediabetes, GERD, anxiety, RLS, chronic lymphedema as per records. Last confinement February 2022 for right-sided heart failure. Patient had a fall at personal care facility last night while walking to the bathroom. Patient lost her balance and fell down on her ankle. Patient unable to get up until EMS arrival at the facility. No head trauma/LOC/chest pain/SOB. Achy right ankle pain. Usual fluid retention. Subsequent closed reduction of dislocated right ankle fracture done at the ER. Patient currently comfortable. MEDICAL HISTORY: SURGICAL HISTORY: appendectomy, cholecystectomy, cataract surgery, D&C, BTL, tear duct surgery, tonsillectomy FAMILY HISTORY: There is a family history of heart disease, colon cancer, DM. PERSONAL /SOCIAL HISTORY: Nonsmoker. 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 ropinirole AdvReac Intermediate fluid Verified 07/12/23 19:36 retention pregabalin [From Lyrica] AdvReac Mild Unknown Verified 07/12/23 19:36 Home Medications Medication Instructions Recorded Confirmed Type aspirin 81 mg tablet,delayed 81 mg PO QAM 05/05/18 07/12/23 History release omega 4-bxq-lhg-fish oil 1,000 mg 1 cap PO TIDM 05/05/18 07/12/23 History (120 mg-180 mg) capsule (Fish Oil) raloxifene 60 mg tablet 60 mg PO QAM osteoporosis 05/05/18 07/12/23 History bumetanide 2 mg tablet 2 mg PO TIDM 12/30/19 07/12/23 History cholecalciferol (vitamin D3) 10 20 mcg PO QAM 12/30/19 07/12/23 History mcg (400 unit) tablet (Vitamin D3) docusate sodium 100 mg capsule 100 mg PO TIDM 12/30/19 07/12/23 History fenofibrate 160 mg tablet 160 mg PO QDD 12/30/19 07/12/23 History metolazone 2.5 mg tablet 2.5 mg PO 3XWK edema 12/30/19 07/12/23 History omeprazole 40 mg capsule,delayed 40 mg PO DAILYBB 12/30/19 07/12/23 History release dextromethorphan-guaifenesin 10 10 ml PO Q4H PRN Cough 03/16/22 07/12/23 History mg-100 mg/5 mL oral liquid (Tussin DM) lorazepam 0.5 mg tablet 0.5 mg PO HS 03/16/22 07/12/23 History potassium chloride 40 mEq/15 mL 40 meq PO ACHS 03/16/22 07/12/23 History oral liquid psyllium husk 3 gram/5.4 gram oral 1 tbsp PO DAILY PRN Constipation 03/16/22 07/12/23 History powder (Reguloid (psyllium husk)) vit C 250 mg-vit E 90 mg-zinc 40 1 tab PO BIDM 03/16/22 07/12/23 History mg-copper 1 bd-nomvqy-wnoind capsule (PreserVision AREDS-2) atropine 1 % eye drops 1 drp OPR TID PRN Pain 07/12/23 07/12/23 History betamethasone dipropionate 0.05 % 1 applic topical BID 07/12/23 07/12/23 History topical cream escitalopram oxalate 10 mg tablet 10 mg PO QAM 07/12/23 07/12/23 History ferrous sulfate 142 mg (45 mg 142 mg PO QAM 07/12/23 07/12/23 History iron) tablet,extended release gabapentin 100 mg capsule 100 mg PO BIDM 07/12/23 07/12/23 History guaifenesin 600 mg tablet, 600 mg PO BID PRN Congestion 07/12/23 07/12/23 History extended release 12 hr (Mucus Relief ER) spironolactone 50 mg tablet See Rx Instructions .Route .COMPLEX 07/12/23 07/12/23 History Past Med/Surg History Medical History Acute hip pain Nocturnal hypoxia Right-sided congestive heart failure Sacral insufficiency fracture Cor pulmonale (chronic) Lumbar stenosis with neurogenic claudication Chronic GERD Right heart failure Dependence on nocturnal oxygen therapy RADHA (obstructive sleep apnea) Dyslipidemia Morbid obesity with BMI of 40.0-44.9, adult Mitral valve prolapse Osteoporosis Chronic acquired lymphedema HTN (hypertension) Chronic back pain Surgical History Hx of cholecystectomy Status post lumbar spine surgery for decompression of spinal cord 2017 Dr. Wan Status post kyphoplasty L3, L4, L5 2018 Dr. Wan Status post tonsillectomy Status post cataract surgery Status post appendectomy Family History Father Family history of colon cancer Brother Family history of prostate cancer Brother Family history of coronary artery disease Sister Family history of coronary artery disease Brother Family history of diabetes mellitus Social History Smoking Status: Never smoker Second Hand Exposure: No; Do You Dip or Chew Tobacco: No; Hx Alcohol Use: No Hx Substance Use: No Preferred Language: Pashto Communication Ability: Effective Disability Insurance Hearing Officer Required: No Beliefs That Will Affect Care: None marital status: Single Current Living Situation: Personal Care Facility Current Living Situation Comment: [facility] Other Information That Helps Us Care for You: No Feels Safe at Home: Yes Safety Concerns: Feels Safe At This Time Assistive Devices: Oxygen - at Night, Walker and Wheelchair Review of Systems Review of Systems: As per HPI, all other systems reviewed and negative Physical Exam Physical Exam: GENERAL: Comfortable, morbidly obese, flat affect, no respiratory distress SKIN: Normal color, warm HEENT: Bespectacled, pink palpebral conjunctivae, no ptosis, moist buccal mucosa NECK : Supple, short neck, no tenderness CHEST : Decreased breath sounds, no tenderness HEART : RRR, no obvious murmurs ABDOMEN: distention, nontender EXTREMITIES : RLE splint, LE swelling without tenderness, no other conspicuous deformities noted NEUROLOGIC : Coherent, no facial asymmetry, no other gross focality Results & Data Results & Data Vital Signs (Past 12 Hours) Vital Signs Temp Pulse Pulse Resp BP BP Pulse Ox 07/12/23 23:42 88 07/12/23 23:00 90 18 146/78 H 100 07/12/23 21:12 90 20 132/76 96 07/12/23 20:21 92 07/12/23 19:41 96 H 07/12/23 19:34 37.1 C 18 154/83 H 98 07/12/23 19:34 37.1 C 69 18 154/93 H 98 O2 Del Method O2 Flow Rate 07/12/23 23:42 07/12/23 23:00 Nasal Cannula 3 07/12/23 21:12 Nasal Cannula 3 07/12/23 20:21 Room Air 07/12/23 19:41 07/12/23 19:34 Room Air 07/12/23 19:34 Room Air Laboratory Results Laboratory Results WBC 7.89 K/ul (4.8-10.8) 07/12/23 19:47 RBC 4.75 M/uL (4.20-5.40) 07/12/23 19:47 Hgb 14.4 g/dl (12.0-16.0) 07/12/23 19:47 Hct 44.2 % (37.0-47.0) 07/12/23 19:47 MCV 93.1 fL (80.0-100.0) 07/12/23 19:47 MCH 30.3 pg (25.0-34.0) 07/12/23 19:47 MCHC 32.6 g/dL (32.0-36.0) 07/12/23 19:47 RDW Std Deviation 49.9 fL (36.4-46.3) H 07/12/23 19:47 RDW Coeff of Vicki 14.6 % (11.5-14.5) H 07/12/23 19:47 Plt Count 341 K/uL (130-400) 07/12/23 19:47 MPV 10.4 fL (9.4-12.4) 07/12/23 19:47 Immature Gran % (Auto) 1.1 % 07/12/23 19:47 Neut % (Auto) 85.0 % 07/12/23 19:47 Lymph % (Auto) 5.8 % 07/12/23 19:47 [place] % (Auto) 6.7 % 07/12/23 19:47 Eos % (Auto) 0.8 % 07/12/23 19:47 Baso % (Auto) 0.6 % 07/12/23 19:47 Neut # (Auto) 6.70 K/uL (1.40-6.50) H 07/12/23 19:47 Lymph # (Auto) 0.46 K/uL (1.20-3.40) L 07/12/23 19:47 [place] # (Auto) 0.53 K/uL (0.11-0.59) 07/12/23 19:47 Eos # (Auto) 0.06 K/uL (0.00-0.50) 07/12/23 19:47 Baso # (Auto) 0.05 K/uL (0.00-0.20) 07/12/23 19:47 Immature Gran # (Auto) 0.09 K/uL (0.01-0.20) 07/12/23 19:47 Sodium 136 mmol/L (136-145) 07/12/23 19:47 Potassium 3.2 mmol/L (3.5-5.1) L 07/12/23 19:47 Chloride 97 mmol/L (98-107) L 07/12/23 19:47 Carbon Dioxide 28 mmol/L (21-32) 07/12/23 19:47 Anion Gap 11 (3-11) 07/12/23 19:47 BUN 24 mg/dl (6-23) H 07/12/23 19:47 Creatinine 1.02 mg/dl (0.6-1.2) 07/12/23 19:47 Est Cr Clr Drug Dosing 46.3 ml/min 07/12/23 19:47 Est GFR ( Amer) 58.5 ml/min 07/12/23 19:47 Est GFR (Non-Af Amer) 50.5 ml/min 07/12/23 19:47 BUN/Creatinine Ratio 23.5 (10-20) H 07/12/23 19:47 Glucose 164 mg/dl (70-99(Fasting)) H 07/12/23 19:47 Calcium 10.7 mg/dl (8.6-10.3) H 07/12/23 19:47 Magnesium 2.0 mg/dl (1.7-2.4) 07/12/23 19:47 Total Bilirubin 0.3 mg/dl (0.2-1.0) 07/12/23 19:47 AST 30 U/L (13-39) 07/12/23 19:47 ALT 20 U/L (7-52) 07/12/23 19:47 Alkaline Phosphatase 55 U/L (34-104) 07/12/23 19:47 Total Creatine Kinase 36 U/L (26-192) 07/12/23 19:47 Total Protein 7.2 gm/dl (6.0-8.3) 07/12/23 19:47 Albumin 4.3 gm/dl (3.4-5.0) 07/12/23 19:47 Globulin 2.9 gm/dl (2.5-4.0) 07/12/23 19:47 Albumin/Globulin Ratio 1.5 (0.9-2) 07/12/23 19:47 Diagnostic Findings EKG as per my interpretation : 95, NSR, LAD, LAFB, 1 AVB, LVH, ST depression lateral leads (1) Closed fracture dislocation of right ankle Encounter type: initial encounter Qualified Code(s): S82.891A - Other fracture of right lower leg, initial encounter for closed fracture
[2023-07-13] MEDS ORDERED: NSS + 20MEQ KCL 20 MEQ/1,000 ML BAG IV ONE (00:40)
[2023-07-13] MEDS ORDERED: PROMETHAZINE HCL 12.5 MG in SODIUM CHLORIDE 0.9% 50 ML IV PRN (00:40)
[2023-07-13] MEDS ORDERED: MoRPHine SULFATE 4 MG/ML 1 ML CARP\\VIAL IV PRN (00:40)
--- OUTSIDE RECORDS SUMMARY | 2023-07-13 02:02 | External Medical Summary | Continuity of Care Document ---
Author Name Unknown Organization [facility] [address] [facility] [address] [id number] Care Team Providers Care Counter Intelligence Technician Name Role Phone LewisAnnaAdriana Jairo Primary Care Physician [phone] [id number] Date(s): 05/26/23 - 05/26/23 [facility] [address] [facility] [address] [id number] Encounter Diagnosis Alopecia areata(Discharge Diagnosis) - 05/26/23 Discharge Disposition: Home or Self Care Attending Physician: MD Maki Thomas A Allergies, Adverse Reactions, Alerts Substance Reaction Severity Status Bactrim Eye swelling Active Assessment and Plan Extracted from: Title:Clinical Document Author:MD Glynn, Juliana Cesar Date:05/26/23 OUTPATIENT NOTE Name: MEERA CLEMENT Patient Number:1 [id number] : 1940 Date of Service: 05/26/2023 _ Meera Clement returns for reevaluation of her alopecia areata. She has developed some regrowth at sites of injection on the 70 mm area on the left occipital scalp and 35 mm area on the right occipital scalp. She has developed a new 20 mm area at the hairline on the right occipital scalp/neck. She continues to apply the minoxidil mousse at home. She notes no hair shedding and little hairs epilated today on light pull at the periphery. All 3 sites were injected with intralesional triamcinolone 10 mg/mL total of 16 mg was injected in 40 insertions. Patient will continue with the minoxidil mousse and return in 2 months. Medications aspirin Start: 09/30/22 8:22:00 EST Start Date: 09/30/22 Status: Ordered betamethasone dipropionate 0.05% topical cream Start: 04/21/23 13:50:00 EDT, 1 appl, topical, bid, Disp# 50 g, Refills: 2, apply to affected areason the scalp, Pharmacy: [facility] Start Date: 04/21/23 Status: Ordered bumetanide 2 mg oral tablet Start: 09/30/22 8:17:00 EST Start Date: 09/30/22 Status: Ordered cholecalciferol Start: 09/30/22 8:24:00 EST Start Date: 09/30/22 Status: Ordered Colace Start: 09/30/22 8:23:00 EST Start Date: 09/30/22 Status: Ordered escitalopram 10 mg oral tablet Start: 09/30/22 8:17:00 EST Start Date: 09/30/22 Status: Ordered fenofibrate 160 mg oral tablet Start: 09/30/22 8:17:00 EST Start Date: 09/30/22 Status: Ordered Fish Oil 1000 mg oral capsule Start: 09/30/22 8:23:00 EST Start Date: 09/30/22 Status: Ordered gabapentin 100 mg oral capsule Start: 09/30/22 8:17:00 EST Start Date: 09/30/22 Status: Ordered LORazepam 0.5 mg oral tablet Start: 09/30/22 8:18:00 EST Start Date: 09/30/22 Status: Ordered metOLazone 5 mg oral tablet Start: 09/30/22 8:18:00 EST Start Date: 09/30/22 Status: Ordered omeprazole 40 mg oral delayed release capsule Start: 09/30/22 8:18:00 EST Start Date: 09/30/22 Status: Ordered Oxygen Start: 09/30/22 8:27:00 EST, Oxygen Start Date: 09/30/22 Status: Ordered potassium chloride 40 mEq/15 mL oral liquid Start: 09/30/22 8:17:00 EST Start Date: 09/30/22 Status: Ordered PreserVision AREDS 2 Start: 09/30/22 8:23:00 EST Start Date: 09/30/22 Status: Ordered raloxifene 60 mg oral tablet Start: 09/30/22 8:18:00 EST Start Date: 09/30/22 Status: Ordered Reguloid Start: 09/30/22 8:25:00 EST Start Date: 09/30/22 Status: Ordered Slow Release Iron (as elemental iron) 45 mg oral tablet, extended release Start: 09/30/22 8:24:00 EST Start Date: 09/30/22 Status: Ordered spironolactone 50 mg oral tablet Start: 09/30/22 8:18:00 EST Start Date: 09/30/22 Status: Ordered Tussin Start: 09/30/22 8:27:00 EST Start Date: 09/30/22 Status: Ordered Mental Status 05/26/23 Barriers to Learning one year None evide nt Mandatory Health Literacy Documentation Yes Health Literacy Communication Barriers N ever Primary Language [place] Leone[place] Problem List Condition Confirmation Course Effective Dates Status Health St atus Informant Alopecia Confirmed Active Diagnosis Diagnosis Type Effective Dates Health Status Cl inical Service Informant Alopecia areata Discharge Diagnosis 05/26/23 Procedures Procedure Date Related Diagnosis Body Site Status Shave biopsy and cauterization of skin 09/30/22 Completed Social History Social History Type Response Smoking Status Never smoked cigaret danielle Sex Female Outpatient Note * MD Glynn, Truman Cesar: PERFORM Event Display: .Outpt Note Authored Date: [id number] OUTPATIENT NOTE Name: MEERA CLEMENT Patient Number:[id number] : 1940 Date of Service: 05/26/2023 _ Meera Clement returns for reevaluation of her alopecia areata. She has developed some regrowth at sites of injection on the 70 mm area on the left occipital scalp and 35 mm area on the right occipitalscalp. She has developed a new 20 mm area at the hairline on the right occipital scalp/neck. She continues to apply the minoxidil mousse at home. She notes no hair shedding and little hairs epilated today on light pull at the periphery. All 3 sites were injected with intralesional triamcinolone 10 mg/mL total of 16 mg was injected in 40 insertions. Patient will continue with the minoxidil mousse and return in 2 months. Electronic Signature on File Electronically Reviewed/Signed by: Truman Maki MD Author Signature Dt/Tm:05/26/2023 12:38 PM Department of Dermatology [facility] Patient Care team information Care Team Personnel Name: MD Joshua, Adriana Gill Position: Referring Member Role: Primary Care Provider Address: Address: [address] [place] [address]
--- OUTSIDE RECORDS SUMMARY | 2023-07-13 02:02 | External Medical Summary | Summary of Care ---
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) Allergies Active Allergy Reactions Severity Noted Date Comments Calcitonin 02/03/2001 Itchy eyes Ezetimibe Muscle pain 01/28/2022 severe joint and muscle pains Statins Muscle pain 11/24/2010 Sulfa Antibiotics 02/03/2001 itching Sulfamethoxazole-Trimethopri m 10/28/2022 Other reaction(s): Eye swelling Tetracyclines & Related 02/03/2001 declymcin photo sensitivity Trimethoprim 10/28/2022 Other reaction(s): itchy yes, Swelling around eyes documented as of this encounter (statuses as of 05/24/2023) Medications Medication Sig Dispensed Refills Start Date End Date Status ASPIRIN EC 81 MG PO TBECIndications:M itral valve prolapse,HTN, goal below 140/90,Chest pain 1 TABLET DAILY 34 11 0 Active FISH OIL 1000 MG PO CAPS 3 capsules daily 0 Active Multiple Vitamins-Minerals (PRESERVISION AREDS) Tablet Take 1 Tablet by mouth in the morning and 1 Tablet before bedtime. 60 Tab 0 6 Active oxygen GASIndications:Lo w oxygen saturation Use 2 L/min(Oxygen) as directed at bedtime. 1 Each 0 7 Active docusate sodium (COLACE) 100 MG Capsule Take 1 Capsule by mouth in the morning and 1 Capsule at noon and 1 Capsule before bedtime. 0 Active Vitamin D, Cholecalciferol, 400 units CAPS Take by mouth. Take 2 tabs by mouth once daily 0 Active Omeprazole 40 MG Oral Capsule Delayed Release (PriLOSEC) Take 1 Cap by mouth daily. 1 hour before the first meal of the day 90 Cap 3 1 Active Slow Fe 142 (45 Fe) MG Oral Tablet Extended Release (Ferrous Sulfate ER)Indications:Re stless legs syndrome Take 1 Tab by mouth daily. 30 Tab 11 1 Active Artificial Tears 0.1-0.3 % Ophthalmic Solution (Dextran 70-Hypromellose) Instill into eye as needed. 0 Active Fenofibrate 160 MG Oral Tablet (Lofibra) TAKE ONE TABLET BY MOUTH ONCE DAILY (CHOLESTEROL) 30 Tablet 5 2 Active guaiFENesin ER 600 MG Oral Tablet Extended Release 12 Hour (Mucinex)Indicati ons:Viral URI with cough Take 1 Tablet by mouth 2 times a day as needed for Congestion. Take with plenty of water. Do not cut, crush or chew 40 Tablet 2 3 Active metOLazone 5 MG Oral Tablet (Zaroxolyn)Indica tions:Chronic right-sided heart failure (HCC) TAKE 1 TABLET BY MOUTH THREE TIMES WEEKLY ON MON,WED AND FRI FOR CHF NOT ON CYCLE PLEASE REORDER 12 Tablet 4 3 Active Spironolactone 50 MG Oral Tablet (Aldactone)Indica tions:Secondary hypertension with goal blood pressure less than 140/90 TAKE 2 TABS BY MOUTH ONCE DAILY IN THE AM FOR HTN. TAKE 1 1/2 TABS BY MOUTH ONCE DAILY IN THE PM FOR HTN 120 Tablet 5 3 Active Escitalopram Oxalate 10 MG Oral Tablet (Lexapro)Indicati ons:Current mild episode of major depressive disorder without prior episode (HCC) TAKE 1 TABLET BY MOUTH ONCE DAILY *DEPRESSION* 28 Tablet 5 3 Active Atropine Sulfate 1 % Ophthalmic Solution Instill 1 Drop into the right eye 3 times a day as needed for Pain, Moderate (eye pain). 2 mL 12 3 Active LORazepam 0.5 MG Oral Tablet (Ativan)Indicatio ns:TAYLOR (generalized anxiety disorder) TAKE 1 TABLET BY MOUTH AT BEDTIME FOR ANXIETY/INSOMNIA PT MAY DECLINE 30 Tablet 4 3 Active Gabapentin 100 MG Oral Capsule (Neurontin)Indica tions:Restless legs syndrome TAKE 1 CAPSULE BY MOUTH TWICE DAILY IN THE MORNING AND MID AFTERNOON FOR MOOD 56 Capsule 5 3 Active Betamethasone Dipropionate 0.05 % External Cream (Diprosone) Start: 04/21/23 13:50:00 EDT, 1 appl, topical, bid, Disp# 50 g, Refills: 2, apply to affected areas on the scalp, Pharmacy: [facility] 0 3 Active Reguloid 25 % Oral Powder (Psyllium) Take by mouth. Mix 1 tablespoonful into 8 ounces of fluid and drink by mouth once daily as needed for constipation 0 Active Dextromethorphan- guaiFENesin 10-100 MG/5ML Oral Liquid (Tussin DM) Take 10 mL by mouth every 4 hours. Take 10 ml by mouth every 4 hours as needed for cough. 0 Active Bumetanide 2 MG Oral Tablet 1 TABLET BY MOUTH 3 TIMES DAILY (EDEMA) 84 Tablet 5 3 Active Raloxifene HCl 60 MG Oral Tablet (Evista)Indicatio ns:Osteoporosis TAKE ONE TABLET BY MOUTH ONCE DAILY FOR OSTEOPOROSIS 28 Tablet 5 3 Active Potassium Chloride 40 MEQ/15ML (20%) Oral SolutionIndicatio ns:Chronic right-sided heart failure (HCC),Hypertensiv e heart and kidney disease with chronic right heart failure and stage 3 chronic kidney disease (HCC) GIVE 15ML (40MEQ) BY MOUTH FIVE TIMES DAILY FOR SUPPLEMENT 2200 mL 5 3 Active Potassium Chloride 40 MEQ/15ML (20%) Oral SolutionIndicatio ns:Chronic right-sided heart failure (HCC),Hypertensiv e heart and kidney disease with chronic right heart failure and stage 3 chronic kidney disease (HCC) Take by mouth 15 mL 5 times a day . FOR SUPPLEMENT 2200 mL 5 2 05/24/20 23 Discontinued documented as of this encounter (statuses as of 05/24/2023) Active Problems Problem Noted Date ARB intolerance 05/06/2023 Overview: Hypotensive and sweaty with first dose of irebesartan 75mg. Discontinued. Body mass index (BMI) of 40.0 to 44.9 in adult 05/02/2023 Overview: Per Obesity protocol - Per Obesity protocol Chronic heart failure with preserved eje ction fraction 01/20/2023 Current mild episode of major depressive disorder without prior episode 10/21/2022 Carpal tunnel syndrome, bilateral 2022 Elevated hemoglobin A1c 07/01/2022 Pain in joint of right shoulder 07/21/20 21 Chronic kidney disease, stage 3a 021 Overview: Per CKD protocol Restless legs syndrome 05/06/2021 Hypertensive heart and kidne y disease with chronic right heart failure and stage 3a chronic kidney disease 10/27/2020 Overview: Per CKD protocol TAYLOR (generalized anxiety disorder) 10/24 Nonrheumatic mitral valve regurgitation 10/24/2020 Spinal stenosis of lumbar region with ne urogenic claudication 01/30/2020 Chronic diastolic (congestive) heart merissa lure 09/24/2019 Gastroesophageal reflux disease with eso phagitis 04/24/2019 Dependence on nocturnal oxygen therapy 0 04/24/2019 Exudative age-related macula r degeneration of right eye with active choroidal neovascularization 04/24/2019 Acquired lymphedema of lower extremity 0 04/24/2019 Overview: [facility]es [facility]hedema [facility] Chronic right-sided heart failure 2018 Dyslipidemia 06/04/2016 Mitral valve prolapse 06/29/2005 HTN, goal below 130/80 01/30/2003 Senile osteoporosis 01/30/2003 documented as of this encounter (statuses as of 05/24/2023) Resolved Problems Problem Noted Date Resolved Date Chronic acquired lymphedema 09/29/2022 09/0 02/2023 Prediabetes 07/05/2022 04/28/2023 Overview: Per Prediabetes protocol Body mass index (BMI) of 45.0 to 49.9 in adult 1 09/04/2021 05/05/2023 Overview: Per Obesity protocol Mouth sores 02/25/2021 04/28/2023 Sore throat 02/19/2021 04/28/2023 Pickwickian syndrome 04/24/2019 05/04/2019 Hypertensive heart and kidne y disease with chronic right heart failure and stage 3 chronic kidney disease 04/24/201910/30 Overview: Per CKD protocol Kidney disease, chronic, stage III (GFR 30-59 ml /min) 05/29/2018 07/03/2020 Overview: Per CKD protocol #1 Dry nose 06/21/2017 12/04/2017 Deviated nasal septum 06/21/2017 12/04/2017 Obesity, morbid (more than 1 00 lbs over ideal weight or BMI > 40) 12/23/2014 05/30/2017 Lipid disorder 08/26/2011 05/30/2017 Genetic Sleep Disorder Research Other*[id number] 12/31/2010 03/18/2016 Obesity, morbid (more than 1 00 lbs over ideal weight or BMI > 40) 11/18/2009 07/01/2022 Overview: Per Obesity Taxonomy, bmi 46 ICD-10 update of inactive term Vertebral fracture, osteoporotic 07/29/2008 05/30/2017 Overview: Per Osteoporotic Vertebral Fracture Protocol # 9 ADVANCE DIRECTIVE INFORMATION 06/28/2005 Overview: pt received booklet and will bring this in to be scanned. Morbid Obesity, BMI not known 06/08/2005 Overview: Per Obesity Taxonomy, bmi 46 Vitamin D deficiency 07/31/2004 06/29/2005 crusted papule dependent right chin 03/11/2004 05/30/2017 Morbid obesity, BMI not known 01/30/2003 Edema 01/30/2003 04/24/2019 Menopause 01/30/2003 05/30/2017 Overview: 1982 documented as of this encounter (statuses as of 05/24/2023) Immunizations Name Administration Dates Next Due COVID-19 mRNA, LNP-s, No Pre serve, 2-Dose Series (Moderna) 06/16/2021,09/30/2020,09/02/2020 Pneumococcal Conjugate Vacc, 13 Valent (Prevnar) 12/05/2015 TDAP (age 10 and older)(Boostrix) 07/02/2013 documented as of this encounter Social History Tobacco Use Types Packs/Day Years Used Date Smoking Tobacco: Never Smokeless Tobacco: Never Alcohol Use Standard Drinks/Week Comments No 0 (1 standard drink = 0.6 oz pur e alcohol) Food Insecurity Answer Date Recorded Within the past 12 months, y ou worried that your food would run out before you got money to buy more. Never true 08/14/2019 Within the past 12 months, t he food you bought just didn't last and you didn't have money to get more. Never true 08/14/2019 Sex Assigned at Date Recorded Not on file Job Start Date Occupation Industry Not on file Not on file Not on file documented as of this encounter Miscellaneous Notes * Telephone Encounter - Ok Talbot RPh - 05/24/2023 10:59 AM EDTSigned Prescriptions: Disp Refills Potassium Chloride 40 MEQ/15ML (20%) Oral *2200 mL5 Sig: GIVE 15ML (40MEQ) BY MOUTH FIVE TIMES DAILY FOR SUPPLEMENT Authorizing Provider: DAVID SOMMERS Ordering User: OK TALBOT * Telephone Encounter - Taylor Whitfield RPh - 05/24/2023 9:46 AM EDTPending Prescriptions: Disp Refills Potassium Chloride 40 MEQ/15ML (20%) Oral *2200 mL5 Sig: GIVE 15ML (40MEQ) BY MOUTH FIVE TIMES DAILY FOR SUPPLEMENT documented in this encounter Plan of Treatment Upcoming Encounters Date Type Specialty Care Team Description 06/02/2023 Office Visit Ophthalmology Hernan Rosario DO [address] [place] [phone] 07/28/2023 Office Visit Cardiology David Sommers PA-C [address] [place] [phone] 11/03/2023 Office Visit Family Medicine Adriana Lewis MD [address] [place] [phone] Health Maintenance Due Date Last Done Comments DXA Scan 04/23/2017 04/23/2015, 03/22, 01/22/2011, Additional history exists Depression Screening 04/25/2021 04/25/2020 COVID-19 Vaccine ( season) 2023 06/16/2021, 09/30/2020, 09/02/2020 Influenza Vaccine (FLU shot) (#1) 2023 DTaP,Tdap,and Td Vaccines (2 - Td or Tdap) 07/02/2023 07/02/2013 GFR 08/11/2023 02/09/2023, 02/2023, 09/01/2022, Additional history exists Albumin/Creatinine Ratio 04/27/2024 04/27/2023, 06/23 CKD HGB USE SMARTSET 85964 04/27/202404/27, 01/05/2022, 04/25/2020, Additional history exists CKD PHOS USE SMARTSET 03552 04/27/202401/2023, 05/06/2021, 04/25/2020, Additional history exists Pneumococcal Vaccine: 65+ Years Completed 12/05/2015, 06/23/2004 VITAMIN D LEVEL ONCE IN A LIFETIME-USE SMARTSET# [id number] Completed 02/10/2021, 05/29/2015, 01/22/2013, Additional history exists GARDASIL-HPV IMMUNIZATION SERIES Aged Out No longer eligible based on patient's age to complete this topic Hepatitis B Aged Out No longer eligi ble based on patient's age to complete this topic MENINGOCOCCAL (MENACTRA/MENVEO) Aged Out No longer eligible based on patient's age to complete this topic Zoster Vaccines Discontinued documented as of this encounter Medical Devices Not on filedocumented as of this encounter Visit Diagnoses Diagnosis Chronic right-sided heart failure (HCC) Congestive heart failure, unspecified 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
--- OUTSIDE RECORDS SUMMARY | 2023-07-13 02:02 | External Medical Summary | Summary of Care ---
Author Name Unknown Organization [facility] Address [address] [place] [address] Phone [phone] Care Team Providers Care Sharepoint Consultant Name Role Phone Adriana Lewis MD Primary Care Provider Reason for Visit * Reason Comments eRx-Medication Refill Encounter Details Date Type Department Care Team Description 05/16/2023 Refill Family Practice [facility] [address] [place] [phone] Adriana Lewis MD [address] [place] [id number] Osteoporosis Allergies Active Allergy Reactions Severity Noted Date Comments Calcitonin 02/03/2001 Itchy eyes Ezetimibe Muscle pain 01/28/2022 severe joint and muscle pains Statins Muscle pain 11/24/2010 Sulfa Antibiotics 02/03/2001 itching Sulfamethoxazole-Trimethopri m 10/28/2022 Other reaction(s): Eye swelling Tetracyclines & Related 02/03/2001 declymcin photo sensitivity Trimethoprim 10/28/2022 Other reaction(s): itchy yes, Swelling around eyes documented as of this encounter (statuses as of 05/17/2023) Medications Medication Sig Dispensed Refills Start Date [...] mouth daily. 30 Tab 11 1 Active Potassium Chloride 40 MEQ/15ML (20%) Oral SolutionIndicatio ns:Chronic right-sided heart failure (HCC),Hypertensiv e heart and kidney disease with chronic right heart failure and stage 3 chronic kidney disease (HCC) Take by mouth 15 mL 5 times a day . FOR SUPPLEMENT 2200 mL 5 2 Active Artificial Tears 0.1-0.3 % Ophthalmic Solution [...] to affected areas on the scalp, Pharmacy: [facility] 0 3 Active Reguloid 25 % Oral [...] FOR OSTEOPOROSIS 28 Tablet 5 3 Active Raloxifene HCl 60 MG Oral Tablet (Evista)Indicatio ns:Osteoporosis TAKE ONE TABLET BY MOUTH ONCE DAILY FOR OSTEOPOROSIS 28 Tablet 5 3 05/17/20 23 Discontinued Bumetanide 2 MG Oral Tablet 1 TABLET BY MOUTH 3 TIMES DAILY (EDEMA) 84 Tablet 5 3 05/17/20 23 Discontinued documented as of this encounter (statuses as of 05/17/2023) Active Problems Problem Noted Date ARB intolerance [...] as of this encounter (statuses as of 05/17/2023) Resolved Problems Problem Noted Date Resolved Date [...] disorder 08/26/2011 05/30/2017 Genetic Sleep Disorder Research Other*[id number] 12/31/2010 03/18/2016 Obesity, morbid (more than 1 [...] as of this encounter (statuses as of 05/17/2023) Immunizations Name Administration Dates Next Due COVID-19 [...] encounter Miscellaneous Notes * Telephone Encounter - Crys Romeo DO - 05/17/2023 12:41 PM EDTSigned Prescriptions: Disp Refills Bumetanide 2 MG Oral Tablet 84 Tab*5 Si TABLET BY MOUTH 3 TIMES DAILY (EDEMA) Authorizing Provider: CRYS ROMEO Raloxifene HCl 60 MG Oral Tablet (Evista) 28 Tab*5 Sig: TAKE ONE TABLET BY MOUTH ONCE DAILY FOR OSTEOPOROSIS Authorizing Provider: CRYS ROMEO * Telephone Encounter - Jean Carlos Mccormack [facility] - 05/17/2023 11:44 AM EDT Pending Prescriptions: Disp Refills Bumetanide 2 MG Oral Tablet 84 Tab*5 Si TABLET BY MOUTH 3 TIMES DAILY (EDEMA) Raloxifene HCl 60 MG Oral Tablet (Evista) 28 Tab*5 Sig: TAKE ONE TABLET BY MOUTH ONCE DAILY FOR OSTEOPOROSIS Electronically signed by Jean Carlos Mccormack [facility] at 05/17/2023 11:44 AM EDT * Telephone Encounter - Jean Carlos Mccormack [facility] - 05/17/2023 11:44 AM EDT Pending Prescriptions: Disp Refills Bumetanide 2 MG Oral Tablet 84 Tab*5 Si TABLET BY MOUTH 3 TIMES DAILY (EDEMA) Raloxifene HCl 60 MG Oral Tablet (Evista) 28 Tab*5 Sig: TAKE ONE TABLET BY MOUTH ONCE DAILY FOR OSTEOPOROSIS 04/28/2023 (in office), 09/18/2020 (telemedicine) 11/03/2023 If no future appointments scheduled, and last appointment is greater than a year ago, please schedule patient for a follow-up appointment Last date the medication was ordered: 12/02/22 [facility]acy: [facility] [address] Is this request for a controlled substance?No Urine Drug Screen:No results found. However, due to the size of the patient record, not all encounters were searched. Please check Results Review for a complete set of results. Patient Phone Numbers Labs: Lab Results Component Value Date/Time CREAT 1.00 02/09/2023 12:00 AM CREAT 0.8 03/05/2020 10:04 AM POTASSIUM 3.9 02/09/2023 12:00 AM POTASSIUM 4.0 03/05/2020 10:04 AM TSH 3.959 01/26/2023 12:00 AM TSH 2.14 12/08/2016 09:13 AM LDLCALC 131 (A) 01/26/2023 12:00 AM LDLCALC 99 2017 07:49 AM LDLDIRECT 148 (H) 01/05/2022 09:09 AM LDLDIRECT 153 (H) 08/18/2010 07:12 AM ALT 19 01/05/2022 09:09 AM ALT 15 2017 07:49 AM HGBA1C 5.9 (A) 04/27/2023 12:00 AM HGBA1C 5.3 11/23/2016 09:32 AM Electronically signed by Jean Carlos Mccormack [facility] at 05/17/2023 11:44 AM EDT documented in this encounter Plan of Treatment Upcoming Encounters Date Type Specialty Care Team Description 06/02/2023 Office Visit Ophthalmology Hernan Rosario DO [address] [place] [phone] 07/28/2023 Office Visit Cardiology Susan Hyatt PA-C [address] [place] [phone] 11/03/2023 Office Visit Family Medicine Adriana Lewis MD [address] [place] [phone] Health Maintenance Due Date Last Done Comments DXA Scan 04/23/2017 04/23/2015, 03/22, 01/22/2011, Additional history exists Depression Screening 04/25/2021 04/25/2020 COVID-19 Vaccine (4 - Moderna series) 08/11/2021 06/16/2021, 09/30/2020, 09/02/2020 Influenza Vaccine (FLU shot) (#1) 2023 DTaP,Tdap,and Td Vaccines (2 - Td or Tdap) 07/02/2023 07/02/2013 GFR 08/11/2023 02/09/2023, 06/02/2023, 09/01/2022, Additional history exists Albumin/Creatinine Ratio 04/27/2024 04/27/2023, 06/23 CKD HGB USE SMARTSET 09332 04/27/202404/27, 01/05/2022, 04/25/2020, Additional history exists CKD PHOS USE SMARTSET 08876 04/27/2024 09/01/2023, 05/06/2021, 04/25/2020, Additional history exists Pneumococcal Vaccine: 65+ Years Completed 12/05/2015, 06/23/2004 VITAMIN D LEVEL ONCE IN A LIFETIME-USE SMARTSET# [id number] Completed 02/10/2021, 05/29/2015, 01/22/2013, Additional history exists [...] as of this encounter Visit Diagnoses Diagnosis Osteoporosis Osteoporosis, unspecified documented in this encounter Care Teams Sharepoint Consultant Relationship Specialty Start Date End Date Adriana Lewis MD [address] [place] [phone] PCP - General Internal Medicine 02/10/21 documented as of this encounter
--- OUTSIDE RECORDS SUMMARY | 2023-07-13 02:02 | External Medical Summary | Summary of Care ---
Author Name Unknown Organization [facility] [address] [facility] [address] Phone [phone] Care Team Providers Care Ultrasonic Cleaner Name Role Phone Adriana Lewis MD Primary Care Provider Reason for Visit * Reason Comments Follow Up 3-4 months dilate OU OCT OU Encounter Details Date Type Department Care Team Description 06/02/2023 Office Visit Ophthalmology, [facility] [address] [facility] [place] [address] Hernan Rosario, [address] [place] [address] Intermediate stage nonexudative age-related macular degeneration of left eye*; Ocular hypertension of right eye; Total retinal detachment of right eye; Endophthalmitis purulent, right Allergies Active Allergy Reactions Severity Noted Date Comments Calcitonin 02/03/2001 Itchy eyes Ezetimibe Muscle pain 01/28/2022 severe joint and muscle pains Statins Muscle pain 11/24/2010 Sulfa Antibiotics 02/03/2001 itching Sulfamethoxazole-Trimethopri m 10/28/2022 Other reaction(s): Eye swelling Tetracyclines & Related 02/03/2001 declymcin photo sensitivity Trimethoprim 10/28/2022 Other reaction(s): itchy yes, Swelling around eyes documented as of this encounter (statuses as of 06/02/2023) Medications Medication Sig Dispensed Refills Start Date End Date Status ASPIRIN EC 81 MG PO TBECIndications:Mi tral valve prolapse,HTN, goal below 140/90,Chest pain 1 TABLET DAILY 34 11 11/17/2009 Active FISH OIL 1000 MG PO CAPS 3 capsules daily 0 Active Multiple Vitamins-Minerals (PRESERVISION AREDS) Tablet Take 1 Tablet by mouth in the morning and 1 Tablet before bedtime. 60 Tab 0 02/09/2016 Active oxygen GASIndications:Low oxygen saturation Use 2 L/min(Oxygen) as directed at bedtime. 1 Each 0 07/07/2017 Active docusate sodium (COLACE) 100 MG Capsule [...] meal of the day 90 Cap 3 02/25/2021 Active Slow Fe 142 (45 Fe) MG Oral Tablet Extended Release (Ferrous Sulfate ER)Indications:Res tless legs syndrome Take 1 Tab by mouth daily. 30 Tab 11 05/06/2021 Active Artificial Tears 0.1-0.3 % Ophthalmic Solution (Dextran 70-Hypromellose) Instill into eye as needed. 0 Active Fenofibrate 160 MG Oral Tablet (Lofibra) TAKE ONE TABLET BY MOUTH ONCE DAILY (CHOLESTEROL) 30 Tablet 5 07/19/2022 Active guaiFENesin ER 600 MG Oral Tablet Extended Release 12 Hour (Mucinex)Indicatio ns:Viral URI with cough Take 1 Tablet by mouth 2 times a day as needed for Congestion. Take with plenty of water. Do not cut, crush or chew 40 Tablet 2 11/12/2022 Active metOLazone 5 MG Oral Tablet (Zaroxolyn)Indicat ions:Chronic right-sided heart failure (HCC) TAKE 1 TABLET BY MOUTH THREE TIMES WEEKLY ON MON,WED AND FRI FOR CHF NOT ON CYCLE PLEASE REORDER 12 Tablet 4 01/31/2023 Active Spironolactone 50 MG Oral Tablet (Aldactone)Indicat ions:Secondary hypertension with goal blood pressure less than 140/90 TAKE 2 TABS BY MOUTH ONCE DAILY IN THE AM FOR HTN. TAKE 1 1/2 TABS BY MOUTH ONCE DAILY IN THE PM FOR HTN 120 Tablet 5 01/31/2023 Active Escitalopram Oxalate 10 MG Oral Tablet (Lexapro)Indicatio ns:Current mild episode of major depressive disorder without prior episode (HCC) TAKE 1 TABLET BY MOUTH ONCE DAILY *DEPRESSION* 28 Tablet 5 02/02/2023 Active Atropine Sulfate 1 % Ophthalmic Solution Instill 1 Drop into the right eye 3 times a day as needed for Pain, Moderate (eye pain). 2 mL 12 02/17/2023 Active LORazepam 0.5 MG Oral Tablet (Ativan)Indication s:TAYLOR (generalized anxiety disorder) TAKE 1 TABLET BY MOUTH AT BEDTIME FOR ANXIETY/INSOMNIA PT MAY DECLINE 30 Tablet 4 03/09/2023 Active Gabapentin 100 MG Oral Capsule (Neurontin)Indicat ions:Restless legs syndrome TAKE 1 CAPSULE BY MOUTH TWICE DAILY IN THE MORNING AND MID AFTERNOON FOR MOOD 56 Capsule 5 03/22/2023 Active Betamethasone Dipropionate 0.05 % External Cream (Diprosone) Start: 04/21/23 13:50:00 EDT, 1 appl, topical, bid, Disp# 50 g, Refills: 2, apply to affected areas on the scalp, Pharmacy: [facility] 0 04/21/2023 Active Reguloid 25 % Oral Powder (Psyllium) Take by mouth. Mix 1 tablespoonful into 8 ounces of fluid and drink by mouth once daily as needed for constipation 0 Active Dextromethorphan-g uaiFENesin 10-100 MG/5ML Oral Liquid (Tussin DM) Take 10 mL by mouth every 4 hours. Take 10 ml by mouth every 4 hours as needed for cough. 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) GIVE 15ML (40MEQ) BY MOUTH FIVE TIMES DAILY FOR SUPPLEMENT 2200 mL 5 05/24/2023 Active documented as of this encounter (statuses as of 06/02/2023) Active Problems Problem Noted Date ARB intolerance [...] as of this encounter (statuses as of 06/02/2023) Resolved Problems Problem Noted Date Resolved Date [...] disorder 08/26/2011 05/30/2017 Genetic Sleep Disorder Research Other*[id number] 12/31/2010 03/18/2016 Obesity, morbid (more than 1 [...] as of this encounter (statuses as of 06/02/2023) Immunizations Name Administration Dates Next Due COVID-19 mRNA, LNP-s, No Pre serve, 2-Dose Series (Moderna) 06/16/2021,09/30/2020,09/02/2020 Pneumococcal Conjugate Vacc, 13 Valent (Prevnar) 12/05/2015 TDAP (age 10 and older)(Boostrix) 07/02/2013 documented as of this encounter Social History Tobacco Use Types Packs/Day Years Used Date Smoking Tobacco: Never Smokeless Tobacco: Never Tobacco Cessation:Counseling Given: No Alcohol Use Standard Drinks/Week Comments No 0 [...] on file documented as of this encounter Progress Notes * Hernan Rosario DO - 06/02/2023 8:15 AM EDT [facility] [place] Nursing notes reviewed. Eye vitals reviewed. Mood and Affect: normal HPI: Meera Clemetn is a 83 year old female who presents for evaluation of retina No other eye complaints. Denies significant pain. Base Eye Exam Visual Acuity (Snellen - Linear) Right Left Dist cc LP 20/40 Dist ph cc NI Correction: Glasses Tonometry (Tonopen, 8:19 AM) Right Left Pressure 30 14 Pupils Pupils Light Shape React APD Right PERRL 4 Round Brisk None Left PERRL 3 Round Brisk None Visual Bhakta (Counting fingers) Right Left Full Restrictions Total superior temporal, inferior temporal, superior nasal, inferior nasal deficiencies Extraocular Movement Right Left Full Full Neuro/Psych Oriented x3: Yes EXTERNAL: The ocular adnexae are unremarkable. SLE: Lids/Lashes: wnl OU Conjunctiva/Sclera: quiet OU Cornea: trace folds, no edema OD; clear OS Anterior Chamber: cell/flare OD; deep and quiet OS Iris: NVI w/ ectropion uveae OD; normal OS Lens: PCIOL OU Dilated fundus exam OD: vitreous: ++vitreous debri/pig chronic RD Dilated fundus exam OS: vitreous: clear optic nerve: 0.4, w/ ?vertical nrr thinning, no edema/pallor/NVD macula: +drusen/rpe clumping vessels: wnl periphery: +reticular changes, no RT/RD OCT Interpretation: OD: unable OS: +ERM, +drusen, no CME/ SRFLuid, +PVD--STABLE, prior STABLE, prior STABLE, prior stable Ultrasound Interpretation: 10/08/2021 OD: +vit debri, no RD; non touching choroidals OS: n/a A/P: 1. Age-Related Macular Degeneration OU OD: wet -advanced, poor vision following endopth #3&4 OS: dry -recommend AREDS2 MVI as directed and Amsler grid qday 2. h/o Amaurosis fugax OS -had episode of vison loss OS x 2 lasting several minutes over past 1 week of 04/03/23 -No OATES, jaw claudication, wt. loss, joint pain, scalp tenderness. -carotid duplex 04/12/23 <50%stenosis bilaterally -no recurrence of symptoms 3. h/o Endophthalmitis OD -s/p anti-VEGF injection 09/08/21 at [facility] -s/p tap and inject 09/11/21 at [facility] -finished moxifloxicin 400 qday [address] OD -s/p endophthalmitis -no treatment recommended at this time -NVI OD and OHT; denies pain; will give rx for atropine tid prn 5. Pseudophakia OU -by Anmol gaming 6. Glaucoma suspect OS -based on c/d and ?nrr thinning -followed by Dr. Peace CC: Dr. Peace f/u 3 months, dilate OU and OCT OS Hernan Rosario DO documented in this encounter Nursing Notes * Rommel Zarate RN - 06/02/2023 8:21 AM EDT Meera Clement is a 83 year old year old female who presents for Amaurosis Fugar OS. Last Office Visit: 04/06/2023 (in office), Visit date not found (telemedicine) Patient currently states " its not that good" Are you diabetic? No Do you drive? no OCT image(s) of both eyes acquired and filed/scanned into chart. documented in this encounter Plan of Treatment Upcoming Encounters Date Type Specialty Care Team Description 07/28/2023 Office Visit Cardiology Susan Hyatt PA-C [address] [place] [address] 11/03/2023 Office Visit Family Medicine Adriana Lewis MD [address] [place] [address] Scheduled Orders Name Type Priority Associated Diagnoses Orde r Schedule RETINA SCAN DIAGNOSTIC IMAGE, POSTERIOR Procedures Routine Intermediate stage nonexudative age-related macular degeneration of left eye Ordered: 06/02/2023 Health Maintenance Due Date Last Done Comments DXA Scan 04/23/2017 04/23/2015, 03/22, 01/22/2011, Additional history exists Depression Screening 04/25/2021 04/25/2020 COVID-19 Vaccine ( season) 2023 06/16/2021, 09/30/2020, 09/02/2020 Influenza Vaccine (FLU shot) (#1) 2023 DTaP,Tdap,and Td Vaccines (2 - Td or Tdap) 07/02/2023 07/02/2013 GFR 08/11/2023 02/09/2023, 02/2023, 09/01/2022, Additional history exists Albumin/Creatinine Ratio 04/27/2024 04/27/2023, 06/23 CKD HGB USE SMARTSET 40026 04/27/202404/27, 01/05/2022, 04/25/2020, Additional history exists CKD PHOS USE SMARTSET 76316 04/27/20240 01/2023, 05/06/2021, 04/25/2020, Additional history exists Pneumococcal Vaccine: 65+ Years Completed 12/05/2015, 06/23/2004 VITAMIN D LEVEL ONCE IN A LIFETIME-USE SMARTSET# [id number] Completed 02/10/2021, 05/29/2015, 01/22/2013, Additional history exists [...] as of this encounter Visit Diagnoses Diagnosis Intermediate stage nonexudative age-related macular degeneration of left eye- Primary 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
--- OUTSIDE RECORDS SUMMARY | 2023-07-13 02:02 | External Medical Summary | Summary of Care ---
Author Name Unknown Organization [facility] Address [address] [place] [address] Phone [phone] Care Team Providers Care Tool Specialist Name Role Phone Adriana Lewis MD Primary Care Provider Encounter Details Date Type Department Care Team Description 2023 Orders Only Family Practice [facility] [address] [facility] [place] [address] Adriana Lewis MD [address] [facility] [place] [address] Allergies Active Allergy Reactions Severity Noted Date Comments Calcitonin 02/03/2001 Itchy eyes Ezetimibe Muscle pain 01/28/2022 severe joint and muscle pains Statins Muscle pain 11/24/2010 Sulfa Antibiotics 02/03/2001 itching Sulfamethoxazole-Trimethopri m 10/28/2022 Other reaction(s): Eye swelling Tetracyclines & Related 02/03/2001 declymcin photo sensitivity Trimethoprim 10/28/2022 Other reaction(s): itchy yes, Swelling around eyes documented as of this encounter (statuses as of 2023) Medications Medication Sig Dispensed Refills Start Date [...] mouth daily. 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 FOR SUPPLEMENT 2200 mL 5 04/16/2022 Active Artificial Tears 0.1-0.3 % Ophthalmic Solution [...] or chew 40 Tablet 2 11/12/2022 Active Raloxifene HCl 60 MG Oral Tablet (Evista)Indication s:Osteoporosis TAKE ONE TABLET BY MOUTH ONCE DAILY FOR OSTEOPOROSIS 28 Tablet 5 12/02/2022 Active Bumetanide 2 MG Oral Tablet 1 TABLET BY MOUTH 3 TIMES DAILY (EDEMA) 84 Tablet 5 12/02/2022 Active metOLazone 5 MG Oral Tablet (Zaroxolyn)Indicat [...] to affected areas on the scalp, Pharmacy: [facility] 0 04/21/2023 Active Reguloid 25 % Oral Powder (Psyllium) Take by mouth. Mix 1 tablespoonful into 8 ounces of fluid and drink by mouth once daily as needed for constipation 0 Active Dextromethorphan-g uaiFENesin 10-100 MG/5ML Oral Liquid (Tussin DM) Take 10 mL by mouth every 4 hours. Take 10 ml by mouth every 4 hours as needed for cough. 0 Active documented as of this encounter (statuses as of 2023) Active Problems Problem Noted Date ARB intolerance [...] as of this encounter (statuses as of 2023) Resolved Problems Problem Noted Date Resolved Date [...] disorder 08/26/2011 05/30/2017 Genetic Sleep Disorder Research Other*[id number] 12/31/2010 03/18/2016 Obesity, morbid (more than 1 [...] as of this encounter (statuses as of 2023) Immunizations Name Administration Dates Next Due COVID-19 [...] on file documented as of this encounter Plan of Treatment Upcoming Encounters Date Type Specialty Care Team Description 06/02/2023 Office Visit Ophthalmology Hernan Rosario, [address] [place] [address] 07/28/2023 Office Visit Cardiology Susan Hyatt PA-C [address] [place] [address] 11/03/2023 Office Visit Family Medicine Adriana Lewis MD [address] [place] [address] Health Maintenance Due Date Last Done Comments Albumin/Creatinine Ratio 07/17/2005 04/27/2023, 06/23 DXA Scan 04/23/2017 04/23/2015, 03/22, 01/22/2011, Additional history exists Depression Screening 04/25/2021 04/25/2020 COVID-19 Vaccine (4 - Moderna series) 08/11/2021 06/16/2021, 09/30/2020, 09/02/2020 CKD PHOS USE SMARTSET 65146 05/06/2022 09/0 01/2023, 05/06/2021, 04/25/2020, Additional history exists CKD HGB USE SMARTSET 76495 01/05/202304/27, 01/05/2022, 04/25/2020, Additional history exists Influenza Vaccine (FLU shot) (#1) 2023 DTaP,Tdap,and Td Vaccines (2 - Td or Tdap) 07/02/2023 07/02/2013 GFR 08/11/2023 02/09/2023, 0602/2023, 09/01/2022, Additional history exists Pneumococcal Vaccine: 65+ Years Completed 12/05/2015, 06/23/2004 VITAMIN D LEVEL ONCE IN A LIFETIME-USE SMARTSET# [id number] Completed 02/10/2021, 05/29/2015, 01/22/2013, Additional history exists [...] Not on filedocumented as of this encounter Procedures Procedure Name Priority Date/Time Associated Diagnosis Comments CHEMISTRY-OUTSIDE Routine 04/27/2023 documented in this encounter Results * (ABNORMAL) CHEMISTRY-OUTSIDE (04/27/2023) Not all results display below - see scan for full detail OUTSIDE LAB (SEE SCANNED REPORT) Comment:SCAN INCLUDES: MALB/ CREA RATIO, PHOS, CBC CREATININE-OUTSID E LAB OUTSIDE LAB (SEE SCANNED REPORT) EGFR-OUTSIDE LAB OUT SIDE LAB (SEE SCANNED REPORT) POTASSIUM-OUTSIDE LAB OUTSIDE LAB (SEE SCANNED REPORT) GLUCOSE-OUTSIDE LAB OUTSIDE LAB (SEE SCANNED REPORT) HOURS FASTING OUTSID E LAB (SEE SCANNED REPORT) TRIGLYCERIDES-OUT SIDE LAB OUTSIDE LAB (SEE SCANNED REPORT) CHOLESTEROL-OUTSI DE LAB OUTSIDE LAB (SEE SCANNED REPORT) HDL-OUTSIDE LAB OUTS CHER LAB (SEE SCANNED REPORT) CHOL/HDL RATIO-OUTSIDE LAB OUTSIDE LA B (SEE SCANNED REPORT) LDL (CALCULATED)-OUTS CHER LAB OUTSIDE LAB (SEE SCANNED REPORT) LDL (DIRECT MEASURE)-OUTSIDE LAB OUTSIDE LAB (SEE SCANNED REPORT) HEMOGLOBIN, [id number] LAB OUTSIDE LAB (SEE SCANNED REPORT) PHOSPHORUS-OUTSID E LAB 3.6 2.5 - 4.9 MG/DL OUTSIDE LAB (SEE SCANNED REPORT) PTH-OUTSIDE LAB OUTS CHER LAB (SEE SCANNED REPORT) MICROALBUMIN RATIO-OUTSIDE LAB <48.2(H) 0 - 30 MCG/MG OUTSIDE LAB (SEE SCANNED REPORT) PROTEIN, UA-OUTSIDE LAB OUTSIDE LAB (SEE SCANNED REPORT) HEMOGLOBIN-OUTSID E LAB 13.7 12.0 - 16.0 G/DL OUTSIDE LAB (SEE SCANNED REPORT) 04/27/2023 Adriana Lewis MD LABORATORY OUTSIDE LAB (SEE SCANNED REPORT) documented in this encounter Care Teams Tool Specialist Relationship Specialty Start Date End Date Adriana Lewis MD [address] [place] [address] PCP - General Internal Medicine 02/10/21 documented as of this encounter
--- OUTSIDE RECORDS SUMMARY | 2023-07-13 02:03 | External Medical Summary | Summary of Care ---
Author Name Unknown Organization [facility] Address [address] [place] [address] Phone [phone] Care Team Providers Care Electric Motor Repair Supervisor Name Role Phone Adriana Lewis MD Primary Care Provider Reason for Visit * Reason Onset Date Comments Advice 04/14/2023 Encounter Details Date Type Department Care Team Description 04/14/[address] [facility] [place] [address] Adriana Lewis MD [address] [facility] [place] [address] Advice Allergies Active Allergy Reactions Severity Noted Date Comments Calcitonin 02/03/2001 Itchy eyes Ezetimibe Muscle pain 01/28/2022 severe joint and muscle pains Statins Muscle pain 11/24/2010 Sulfa Antibiotics 02/03/2001 itching Sulfamethoxazole-Trimethopri m 10/28/2022 Other reaction(s): Eye swelling Tetracyclines & Related 02/03/2001 declymcin photo sensitivity Trimethoprim 10/28/2022 Other reaction(s): itchy yes, Swelling around eyes documented as of this encounter (statuses as of 04/14/2023) Medications Medication Sig Dispensed Refills Start Date [...] FOR MOOD 56 Capsule 5 03/22/2023 Active Amoxicillin-Pot Clavulanate 875-125 MG Oral Tablet (Augmentin)Indicat ions:Acute non-recurrent maxillary sinusitis Take 1 Tablet by mouth in the morning and 1 Tablet before bedtime. Do all this for 7 days. 14 Tablet 0 04/14/2023 04/21/2023 Active documented as of this encounter (statuses as of 04/14/2023) Active Problems Problem Noted Date Chronic heart failure with preserved eje ction fraction 01/20/2023 Current mild episode of major depressive disorder without prior episode 10/21/2022 Chronic acquired lymphedema 09/29/2022 Carpal tunnel syndrome, bilateral 2022 Prediabetes 07/05/2022 Overview: Per Prediabetes protocol Body mass index (BMI) of 45.0 to 49.9 in adult 07/05/2022 Overview: Per Obesity protocol Elevated hemoglobin A1c 07/01/2022 Pain in joint of right shoulder 07/21/20 21 Chronic kidney disease, stage 3a 10/11/2 021 Overview: Per CKD protocol Restless legs syndrome 05/06/2021 Mouth sores 02/25/2021 Sore throat 02/19/2021 Hypertensive heart and kidne y disease with [...] as of this encounter (statuses as of 04/14/2023) Resolved Problems Problem Noted Date Resolved Date Pickwickian syndrome 04/24/2019 05/04/2019 Hypertensive heart and [...] disorder 08/26/2011 05/30/2017 Genetic Sleep Disorder Research Other*[id number] 12/31/2010 03/18/2016 Obesity, morbid (more than 1 [...] as of this encounter (statuses as of 04/14/2023) Immunizations Name Administration Dates Next Due COVID-19 [...] encounter Miscellaneous Notes * Telephone Encounter - NITHYA Oliver - 04/14/2023 3:48 PM EDT Pt informed. * Telephone Encounter - Adriana Lewis MD - 04/14/2023 3:31 PM EDT Sent. If not improving in 5-7 days, must have in person visit. Sooner if worsening * Telephone Encounter - Shantel Luo LPN - 04/14/2023 1:14 PM EDT Provider to address: Patient calling in stating that she thinks she has a sinus infection and wants an antibiotic sent in to the pharmacy. Symptoms include: Sore throat, Right ear pain, bloody nasal drainage, productive cough (Yellow) Symptoms started about a week ago She has been taking OTC cough medication but has not helped, Tylenol Patient unable to get to the office for an appointment. Pharmacy selected. Please advise Reason for Call: Advice Contact: Telephone Call Contact Type: Information Total Time including non face to face (minutes): 5 documented in this encounter Plan of Treatment Upcoming Encounters Date Type Specialty Care Team Description 04/28/2023 Office Visit Family Medicine Adriana Lewis MD [address] [place] [address] 04/28/2023 Laboratory Laboratory [place] [address] [place] [address] 06/02/2023 Office Visit Ophthalmology Hernan Rosario DO [address] [place] [address] 07/28/2023 Office Visit Cardiology Susan Hyatt PA-C [address] [place] [address] Health Maintenance Due Date Last Done Comments Zoster Vaccines (1 of 2) 1989 Albumin/Creatinine Ratio 07/17/2005 07/17/2004 DXA Scan 04/23/2017 04/23/2015, 03/22, 01/22/2011, Additional history exists Depression Screening, Annual for Pts 12 and Over 04/25/2021 04/25/2020 COVID-19 Vaccine (4 - Moderna series) 08/11/2021 06/16/2021, 09/30/2020, 09/02/2020 CKD PHOS USE SMARTSET 49086 05/06/202204/22, 04/25/2020, 12/30/2019, Additional history exists CKD HGB USE SMARTSET 93616 01/05/202301/05, 04/25/2020, 12/30/2019, Additional history exists Influenza Vaccine (FLU shot) (#1) 2023 HbA1c 06/09/2023 06/09/2022, 11/23/2016 DTaP,Tdap,and Td Vaccines (2 - Td or Tdap) 07/02/2023 07/02/2013 GFR 08/11/2023 02/09/2023, 06/02/2023, 09/01/2022, Additional history exists Pneumococcal Vaccine: 65+ Years Completed 12/05/2015, 06/23/2004 VITAMIN D LEVEL ONCE IN A LIFETIME-USE SMARTSET# [id number] Completed 02/10/2021, 05/29/2015, 01/22/2013, Additional history exists GARDASIL-HPV IMMUNIZATION SERIES Aged Out No longer eligible based on patient's age to complete this topic Hepatitis B Aged Out No longer eligi ble based on patient's age to complete this topic MENINGOCOCCAL (MENACTRA/MENVEO) Aged Out No longer eligible based on patient's age to complete this topic documented as of this encounter Medical Devices Not on filedocumented as of this encounter Visit Diagnoses Diagnosis Acute non-recurrent maxillary sinusitis- Primary documented in this encounter Care Teams Electric Motor Repair Supervisor Relationship Specialty Start Date End Date Adriana Lewis MD [address] [place] [address] PCP - General Internal Medicine 02/10/21 documented as of this encounter
--- OUTSIDE RECORDS SUMMARY | 2023-07-13 02:03 | External Medical Summary | Summary of Care ---
Author Name Unknown Organization [facility] Address [address] [place] [address] Phone [phone] Care Team Providers Care Financial Supervisor Name Role Phone Adriana Lewis MD Primary Care Provider Encounter Details Date Type Department Care Team Description 2023 Orders Only Family Practice [facility] [address] [facility] [place] [address] Adriana Lewis MD 132 [facility] [place] [address] Allergies Active Allergy Reactions Severity Noted Date [...] to affected areas on the scalp, Pharmacy: [facility] 0 04/21/2023 Active Reguloid 25 [...] disorder 08/26/2011 05/30/2017 Genetic Sleep Disorder Research Other*[id number] 12/31/2010 03/18/2016 Obesity, morbid (more than 1 [...] Hernan Rosario, [address] [place] [address] 07/28/2023 Office Visit Cardiology Susan Hyatt PA-C [address] [place] [address] 11/03/2023 Office Visit Family Medicine Adriana Lewis MD [address] [place] [address] Health Maintenance Due Date Last Done Comments Albumin/Creatinine Ratio 07/17/2005 04/27/2023, 06/23 DXA Scan 04/23/2017 04/23/2015, 03/22, 01/22/2011, Additional history exists Depression Screening 04/25/2021 04/25/2020 COVID-19 Vaccine (4 - Moderna series) 08/11/2021 06/16/2021, 09/30/2020, 09/02/2020 CKD PHOS USE SMARTSET 44399 05/06/2022 09/0 01/2023, 05/06/2021, 04/25/2020, Additional history exists CKD HGB USE SMARTSET 63902 01/05/202304/27, 01/05/2022, 04/25/2020, Additional history exists Influenza Vaccine (FLU shot) (#1) 2023 DTaP,Tdap,and Td Vaccines (2 - Td or Tdap) 07/02/2023 07/02/2013 GFR 08/11/2023 02/09/2023, 0602/2023, 09/01/2022, Additional history exists Pneumococcal Vaccine: 65+ Years Completed 12/05/2015, 06/23/2004 VITAMIN D LEVEL ONCE IN A LIFETIME-USE SMARTSET# [id number] Completed 02/10/2021, 05/29/2015, 01/22/2013, Additional history exists [...] detail OUTSIDE LAB (SEE SCANNED REPORT) Comment:SCAN INCLUDES - A1C CREATININE-OUTSID E LAB OUTSIDE LAB (SEE SCANNED [...] LAB OUTSIDE LAB (SEE SCANNED REPORT) HEMOGLOBIN, U0S-SXKYLVH LAB 5.9(A) 4.5 - 5.6 % OUTSIDE LAB (SEE SCANNED REPORT) PHOSPHORUS-OUTSID E LAB OUTSIDE LAB (SEE SCANNED REPORT) PTH-OUTSIDE LAB OUTS [facility] LAB (SEE SCANNED REPORT) MICROALBUMIN RATIO-OUTSIDE LAB OUTSIDE LA B (SEE SCANNED REPORT) PROTEIN, UA-OUTSIDE LAB OUTSIDE LAB (SEE SCANNED REPORT) HEMOGLOBIN-OUTSID E LAB OUTSIDE LAB (SEE SCANNED REPORT) 04/27/2023 Adriana Lewis MD LABORATORY OUTSIDE LAB (SEE SCANNED REPORT) documented in this encounter Care Teams Financial Supervisor Relationship Specialty Start Date End Date Adriana Lewis MD [address] [place] [address] PCP - General Internal Medicine 02/10/21 documented as of this encounter
--- OUTSIDE RECORDS SUMMARY | 2023-07-13 02:03 | External Medical Summary | Summary of Care ---
Author Name Unknown Organization [facility] Address [address] [place] [address] Phone [phone] Care Team Providers Care Can Cleaner Name Role Phone Adriana Lewis MD Primary Care Provider Reason for Visit * Reason Onset Date Comments Advice 04/22/2023 Order Request 04/22/2023 Encounter Details Date Type Department Care Team Description 04/22/[address] [facility] [address] [facility] [place] [address] Adriana Lewis MD 132 [facility] [place] [address] Advice; Order Request Allergies Active Allergy Reactions Severity Noted Date Comments Calcitonin 02/03/2001 Itchy eyes Ezetimibe Muscle pain 01/28/2022 severe joint and muscle pains Statins Muscle pain 11/24/2010 Sulfa Antibiotics 02/03/2001 itching Sulfamethoxazole-Trimethopri m 10/28/2022 Other reaction(s): Eye swelling Tetracyclines & Related 02/03/2001 declymcin photo sensitivity Trimethoprim 10/28/2022 Other reaction(s): itchy yes, Swelling around eyes documented as of this encounter (statuses as of 04/22/2023) Medications Medication Sig Dispensed Refills Start Date End Date Status ASPIRIN EC 81 MG PO TBECIndications:Kel ral valve prolapse,HTN, goal below 140/90,Chest pain 1 [...] MG Oral Tablet Extended Release (Ferrous Sulfate ER)Indications:Rest less legs syndrome Take 1 Tab by mouth daily. 30 Tab 11 05/06/2021 Active Potassium Chloride 40 MEQ/15ML (20%) Oral SolutionIndications :Chronic right-sided heart failure (HCC),Hypertensive heart and kidney [...] MG Oral Tablet Extended Release 12 Hour (Mucinex)Indication s:Viral URI with cough Take 1 Tablet by mouth 2 times a day as needed for Congestion. Take with plenty of water. Do not cut, crush or chew 40 Tablet 2 11/12/2022 Active Raloxifene HCl 60 MG Oral Tablet (Evista)Indications :Osteoporosis TAKE ONE TABLET BY MOUTH ONCE DAILY FOR OSTEOPOROSIS 28 Tablet 5 12/02/2022 Active Bumetanide 2 MG Oral Tablet 1 TABLET BY MOUTH 3 TIMES DAILY (EDEMA) 84 Tablet 5 12/02/2022 Active metOLazone 5 MG Oral Tablet (Zaroxolyn)Indicati ons:Chronic right-sided heart failure (HCC) TAKE 1 TABLET BY MOUTH THREE TIMES WEEKLY ON TUE,WED AND FRI FOR CHF NOT ON CYCLE PLEASE REORDER 12 Tablet 4 01/31/2023 Active Spironolactone 50 MG Oral Tablet (Aldactone)Indicati ons:Secondary hypertension with goal blood pressure less than 140/90 TAKE 2 TABS BY MOUTH ONCE DAILY IN THE AM FOR HTN. TAKE 1 1/2 TABS BY MOUTH ONCE DAILY IN THE PM FOR HTN 120 Tablet 5 01/31/2023 Active Escitalopram Oxalate 10 MG Oral Tablet (Lexapro)Indication s:Current mild episode of major depressive disorder without prior episode (HCC) TAKE 1 TABLET BY MOUTH ONCE DAILY *DEPRESSION* 28 Tablet 5 02/02/2023 Active Atropine Sulfate 1 % Ophthalmic Solution Instill 1 Drop into the right eye 3 times a day as needed for Pain, Moderate (eye pain). 2 mL 12 02/17/2023 Active LORazepam 0.5 MG Oral Tablet (Ativan)Indications :TAYLOR (generalized anxiety disorder) TAKE 1 TABLET BY MOUTH AT BEDTIME FOR ANXIETY/INSOMNIA PT MAY DECLINE 30 Tablet 4 03/09/2023 Active Gabapentin 100 MG Oral Capsule (Neurontin)Indicati ons:Restless legs syndrome TAKE 1 CAPSULE BY MOUTH TWICE DAILY IN THE MORNING AND MID AFTERNOON FOR MOOD 56 Capsule 5 03/22/2023 Active documented as of this encounter (statuses as of 04/22/2023) Active Problems Problem Noted Date Chronic heart [...] as of this encounter (statuses as of 04/22/2023) Resolved Problems Problem Noted Date Resolved Date [...] disorder 08/26/2011 05/30/2017 Genetic Sleep Disorder Research Other*[id number] 12/31/2010 03/18/2016 Obesity, morbid (more than 1 [...] as of this encounter (statuses as of 04/22/2023) Immunizations Name Administration Dates Next Due COVID-19 [...] encounter Miscellaneous Notes * Telephone Encounter - Areli Zhang LPN - 04/22/2023 11:05 AM EDT Faxed lab order that Mary (Assembly And Packing Supervisor at [facility]) received is not electronically signed and is just one page that lists what is needed to be drawn, not like what they usually get when orders are faxed Refaxed lab orders, each order separately to [phone] with confirmation they were all received Reason for Call: Advice and Order Request Contact: Telephone Call Contact Type: Care Coordination Total Time including non face to face (minutes): 10 * Telephone Encounter - RADHA Coles - 04/22/2023 10:54 AM EDT Gabbie, Nurse Administratior at [facility] calling received orders for labs today that are incomplete Needs diagnosis, ordering physician signature on orders Please refax [phone] * Telephone Encounter - Amy Diaz LPN - 04/22/2023 10:31 AM EDT Provider to address: pt calling to get labs faxed to [facility] to be done Tuesday. She has upcoming appt on 04/28. (f)[phone] Faxed lab orders to [facility] with confirmed receipt. Reason for Call: Advice Contact: Telephone Call Contact Type: Care Coordination Outcome: faxed Total Time including non face to face (minutes): 10 documented in this encounter Plan of Treatment Upcoming Encounters Date Type Specialty Care Team Description 04/28/2023 Office Visit Family Medicine Adriana Lewsi MD [address] [place] [address] 04/28/2023 Laboratory Laboratory Branden Albarran [address] [address] 06/02/2023 Office Visit Ophthalmology Hernan Rosario DO [address] [place] [address] 07/28/2023 Office Visit Cardiology Susan Hyatt PA-C [address] [place] [address] Health Maintenance Due Date Last Done Comments Zoster Vaccines (1 of 2) 1989 Albumin/Creatinine Ratio 07/17/2005 07/17/2004 DXA Scan 04/23/2017 04/23/2015, 03/22, 01/22/2011, Additional history exists Depression Screening, Annual for Pts 12 and Over 04/25/2021 04/25/2020 COVID-19 Vaccine (4 - Moderna series) 08/11/2021 06/16/2021, 09/30/2020, 09/02/2020 CKD PHOS USE SMARTSET 04420 05/06/202204/22, 04/25/2020, 12/30/2019, Additional history exists CKD HGB USE SMARTSET 38261 01/05/202301/05, 04/25/2020, 12/30/2019, Additional history exists Influenza Vaccine (FLU shot) (#1) 2023 HbA1c 06/09/2023 06/09/2022, 11/23/2016 DTaP,Tdap,and Td Vaccines (2 - Td or Tdap) 07/02/2023 07/02/2013 GFR 08/11/2023 02/09/2023, 06/02/2023, 09/01/2022, Additional history exists Pneumococcal Vaccine: 65+ Years Completed 12/05/2015, 06/23/2004 VITAMIN D LEVEL ONCE IN A LIFETIME-USE SMARTSET# [id number] Completed 02/10/2021, 05/29/2015, 01/22/2013, Additional history exists [...] Not on filedocumented as of this encounter Care Teams Can Cleaner Relationship Specialty Start Date End Date Adriana Lewis MD [address] [place] [address] PCP - General Internal Medicine 02/10/21 documented as of this encounter
--- OUTSIDE RECORDS SUMMARY | 2023-07-13 02:03 | External Medical Summary | Summary of Care ---
Author Name Unknown Organization [facility] Address [address] [place] [address] Phone [phone] Care Team Providers Care Associate Director Data & Analytics Name Role Phone Adriana Lewis MD Primary Care Provider Reason for Visit * Reason Onset Date Comments Advice 04/28/2023 Encounter Details Date Type Department Care Team Description 04/28/2023 Telephone Family Practice [facility] [address] [facility] [place] [address] Adriana Lewis MD [address] [facility] [address] Advice Allergies Active Allergy Reactions Severity Noted Date Comments Calcitonin 02/03/2001 Itchy eyes Ezetimibe Muscle pain 01/28/2022 severe joint and muscle pains Statins Muscle pain 11/24/2010 Sulfa Antibiotics 02/03/2001 itching Sulfamethoxazole-Trimethopri m 10/28/2022 Other reaction(s): Eye swelling Tetracyclines & Related 02/03/2001 declymcin photo sensitivity Trimethoprim 10/28/2022 Other reaction(s): itchy yes, Swelling around eyes documented as of this encounter (statuses as of 05/06/2023) Medications Medication Sig Dispensed Refills Start Date [...] or chew 40 Tablet 2 3 Active Raloxifene HCl 60 MG Oral Tablet (Evista)Indicatio ns:Osteoporosis TAKE ONE TABLET BY MOUTH ONCE DAILY FOR OSTEOPOROSIS 28 Tablet 5 3 Active Bumetanide 2 MG Oral Tablet 1 TABLET BY MOUTH 3 TIMES DAILY (EDEMA) 84 Tablet 5 3 Active metOLazone 5 MG Oral Tablet [...] to affected areas on the scalp, Pharmacy: [facility] 0 3 Active Reguloid 25 % Oral Powder (Psyllium) Take by mouth. Mix 1 tablespoonful into 8 ounces of fluid and drink by mouth once daily as needed for constipation 0 Active Dextromethorphan- guaiFENesin 10-100 MG/5ML Oral Liquid (Tussin DM) Take 10 mL by mouth every 4 hours. Take 10 ml by mouth every 4 hours as needed for cough. 0 Active Irbesartan 75 MG Oral Tablet (Avapro)Indicatio ns:Chronic diastolic (congestive) heart failure (HCC) Take 1 Tablet by mouth daily. 90 Tablet 3 3 04/29/20 23 Discontinued documented as of this encounter (statuses as of 05/06/2023) Active Problems Problem Noted Date ARB intolerance [...] as of this encounter (statuses as of 05/06/2023) Resolved Problems Problem Noted Date Resolved Date [...] disorder 08/26/2011 05/30/2017 Genetic Sleep Disorder Research Other*[id number] 12/31/2010 03/18/2016 Obesity, morbid (more than 1 [...] as of this encounter (statuses as of 05/06/2023) Immunizations Name Administration Dates Next Due COVID-19 [...] encounter Miscellaneous Notes * Telephone Encounter - Susan Hyatt PA-C - 05/06/2023 3:12 PM EDT Noted. Agree with stopping ARB * Telephone Encounter - Adriana Lewis MD - 05/06/2023 2:44 PM EDT Deja AGRAWAL. D/C'd arb and will hold off on any other trials. * Telephone Encounter - Adriana Lewis MD - 04/29/2023 4:37 PM EDT Noted, thank you. * Telephone Encounter - Shante Melchor MED ASSIST - 04/29/2023 2:49 PM EDT Spoke to Mary. She was only able to hear a beat at 80. Their automatic blood pressure machine keptreading error. Her pulse was okay at 63. She is doing much better now. Order to discontinue faxed. . * Telephone Encounter - Adriana Lewis MD - 04/29/2023 12:40 PM EDT Agree with holding irbesartan. Will discontinue. Did they check blood pressure? If patient not back to normal, would recommend ED. * Telephone Encounter - Sylvia Shi LPN - 04/29/2023 11:21 AM EDT Provider to address: medication Reason for Call: Advice Contact: Telephone Call Contact Type: Medication Outcome: Mary calling from the [facility]. Took her first Irbesartan this morning about 7:15 a.m. She became sweaty. Everything she looks at is purple and white. Looks peaked, more than normal. Just not herself. Was acknowledging that she was talking to her, but couldn't answer her questions. Said she might have to call 911. Asked patient if she wants her to call an ambulance. Patient said no. She will be okay. So for right now, she is not going. Seems to be coming back around. Will hold the medicine for now. Please advise. Called the office and spoke to Shante. Will relay message. Total Time including non face to face (minutes): 10 * Telephone Encounter - Adriana Lewis MD - 04/28/2023 3:32 PM EDT Cardiology said was fine to try low-dose DONNY inhibitor or angiotensin receptor gary. My preference is ARB - lower rate of chronic cough as side effect. Recheck blood pressure (can do at her [facility] living) and labs in two weeks. documented in this encounter Plan of Treatment Upcoming Encounters Date Type Specialty Care Team Description 06/02/2023 Office Visit Ophthalmology Hernan Rosario DO [address] [place] [address] 07/28/2023 Office Visit Cardiology Susan Hyatt PA-C [address] [place] [address] 11/03/2023 Office Visit Family Medicine Adriana Lewis MD [address] [place] [address] Scheduled Orders Name Type Priority Associated Diagnoses Orde r Schedule BASIC METABOLIC PANEL Lab Routine Chronic diastolic (congestive) heart failure (HCC) Expected: 05/12/2023, Expires: 04/28/2024 Health Maintenance Due Date Last Done Comments Albumin/Creatinine Ratio 07/17/2005 07/17/2004 DXA Scan 04/23/2017 04/23/2015, 03/22, 01/22/2011, Additional history exists Depression Screening 04/25/2021 04/25/2020 COVID-19 Vaccine (4 - Moderna series) 08/11/2021 06/16/2021, 09/30/2020, 09/02/2020 CKD PHOS USE SMARTSET 89221 05/06/202204/22, 04/25/2020, 12/30/2019, Additional history exists CKD HGB USE SMARTSET 88128 01/05/202301/05, 04/25/2020, 12/30/2019, Additional history exists Influenza Vaccine (FLU shot) (#1) 2023 DTaP,Tdap,and Td Vaccines (2 - Td or Tdap) 07/02/2023 07/02/2013 GFR 08/11/2023 02/09/2023, 02/2023, 09/01/2022, Additional history exists Pneumococcal Vaccine: 65+ Years Completed 12/05/2015, 06/23/2004 VITAMIN D LEVEL ONCE IN A LIFETIME-USE SMARTSET# [id number] Completed 02/10/2021, 05/29/2015, 01/22/2013, Additional history exists [...] of this encounter Visit Diagnoses Diagnosis Chronic diastolic (congestive) heart failure (HCC)- Primary documented in this encounter Care Teams Associate Director Data & Analytics Relationship Specialty Start Date End Date Adriana Lewis MD [address] [place] [address] PCP - General Internal Medicine 02/10/21 documented as of this encounter
--- OUTSIDE RECORDS SUMMARY | 2023-07-13 02:03 | External Medical Summary | Summary of Care ---
Author Name Unknown Organization [facility] Address [address] [place] [address] Phone [phone] Care Team Providers Care Cloth Bleaching Range Operator Chief Name Role Phone Adriana Lewis MD Primary Care Provider Reason for Visit * Reason Comments Follow Up Still feels right si ded throat and ear discomfort from most recent cold. 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)*; Restless legs syndrome; Elevated hemoglobin A1c; Carpal tunnel syndrome, bilateral Allergies Active Allergy Reactions Severity Noted Date Comments Calcitonin 02/03/2001 Itchy eyes Ezetimibe Muscle pain 01/28/2022 severe joint and muscle pains Statins Muscle pain 11/24/2010 Sulfa Antibiotics 02/03/2001 itching Sulfamethoxazole-Trimethopri m 10/28/2022 Other reaction(s): Eye swelling Tetracyclines & Related 02/03/2001 declymcin photo sensitivity Trimethoprim 10/28/2022 Other reaction(s): itchy yes, Swelling around eyes documented as of this encounter (statuses as of 04/28/2023) Medications Medication Sig Dispensed Refills Start Date [...] to affected areas on the scalp, Pharmacy: [facility] 0 04/21/2023 Active Reguloid 25 [...] as of this encounter (statuses as of 04/28/2023) Active Problems Problem Noted Date Chronic heart failure with preserved eje ction fraction 01/20/2023 Current mild episode of major depressive disorder without prior episode 10/21/2022 Carpal tunnel syndrome, bilateral 2022 Body mass index (BMI) of 45.0 to [...] as of this encounter (statuses as of 04/28/2023) Resolved Problems Problem Noted Date Resolved Date Chronic acquired lymphedema 09/29/2022 09/0 02/2023 Prediabetes 07/05/2022 04/28/2023 Overview: Per Prediabetes protocol Mouth sores 02/25/2021 04/28/2023 Sore throat [...] disorder 08/26/2011 05/30/2017 Genetic Sleep Disorder Research Other*[id number] 12/31/2010 03/18/2016 Obesity, morbid (more than 1 [...] as of this encounter (statuses as of 04/28/2023) Immunizations Name Administration Dates Next Due COVID-19 [...] on file documented as of this encounter Last Filed Vital Signs Vital Sign Reading Time Taken Comments Blood Pressure 122/76 04/28/2023 9:39 AM EDT Pulse 70 04/28/2023 9:39 AM EDT Temperature 36.6 C (97.9 F) 04/28/2023 9:39 AM ED T Respiratory Rate 16 04/28/2023 9:39 AM EDT Oxygen Saturation 97% 04/28/2023 9:39 AM EDT Inhaled Oxygen Concentration - - Weight 104.1 kg (229 lb 9.6 oz) 04/28/2023 9:39 AM EDT Height 154.9 cm (5' 1") 04/28/2023 9:39 AM EDT Body Mass Index 43.38 04/28/2023 9:39 AM EDT documented in this encounter Progress Notes * Adriana Lewis MD - 04/28/2023 10:06 AM EDT Images from the original note were not included. History of Present Illness Meera Clement is a 82 year old female that presents for Follow Up (Still feels right sided throat and ear discomfort from most recent cold. ) Episode of amaurosis fugax, Ophthalmology evaluated. Carotid Dopplers show less than 50% stenosis bilaterally. Saw [place] [facility] [place]. Diagnosis with alopecia areata, injected with steroids. Suggested topical minoxidil. Has f/u in May. 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 Steroid injection. Saw cardiology in January. No changes made. Restless legs - stable Carpal tunnel - deferred surgery 2/ lack of post-op help. Managing with night bracing. Mood - reasonable CKD - stable. Mild microalbuminuria. A1C 5.9%. Has questions about what this means. Mostly better from recent sinus infection. medication and allergy list reviewed Past medical history and problem list reviewed Physical Exam Vitals: 04/28/23 0939 Temp: 36.6 C (97.9 F) Pulse: 70 Resp: 16 SpO2: 97% BP: 122/76 BMI: 43.4 BP Readings from Last 3 Encounters: 04/28/23 122/76 01/20/23 126/84 11/18/22 130/78 Wt Readings from Last 3 Encounters: 04/28/23 104.1 kg (229 lb 9.6 oz) 01/20/23 110.2 kg (243 lb) 09/14/22 109.1 kg (240 lb 8 oz) Physical Exam Vitals and nursing note reviewed. Constitutional: General: She is not in acute distress. Appearance: Normal appearance. She is not ill-appearing. HENT: Head: Normocephalic and atraumatic. Right Ear: Tympanic membrane, ear canal and external ear normal. There is no impacted cerumen. Left Ear: Tympanic membrane, ear canal and external ear normal. There is no impacted cerumen. Nose: Nose normal. Mouth/Throat: Mouth: Mucous membranes are moist. Pharynx: Oropharynx is clear. Comments: Tonsils surgically absent Eyes: General: No scleral icterus. Conjunctiva/sclera: Conjunctivae normal. Pupils: Pupils are equal, round, and reactive to light. Neck: Thyroid: No thyroid mass, thyromegaly or thyroid tenderness. Cardiovascular: Rate and Rhythm: Normal rate and regular rhythm. Heart sounds: No murmur heard. Pulmonary: Effort: Pulmonary effort is normal. Breath sounds: Normal breath sounds. Abdominal: General: Abdomen is flat. There is no distension. Palpations: Abdomen is soft. Tenderness: There is no abdominal tenderness. There is no guarding or rebound. Musculoskeletal: Right lower leg: Edema present. Left lower leg: Edema present. Lymphadenopathy: Cervical: No cervical adenopathy. Skin: General: Skin is warm and dry. Neurological: Mental Status: She is alert. Psychiatric: Mood and Affect: Mood normal. Behavior: Behavior normal. 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 Chronic lower extremity edema reasonably well managed. Weight is actually down. Will touch base with Cardiology regarding whether a low-dose DONNY inhibitor or angiotensin receptor gary would be beneficial and reasonable. Restless legs syndrome Continue current medications Elevated hemoglobin A1c Explained that she is well below where we would use medications. She could easily managed by decreasing her sweets and treats Carpal tunnel syndrome, bilateral Continue with nocturnal bracing Wrap-Up Follow Up: Return in about 6 months (around 10/27/2023) for Return with Joshua. | For: Return with Joshua Time: I spent a total of 30-39 minutes (exact time 38 mins) on the date of service in preparation, delivery, and documentation of the care provided to Meera Clement excluding any time spent in the performance of separately billed services. documented in this encounter Plan of Treatment Upcoming Encounters Date Type Specialty Care Team Description 06/02/2023 Office Visit Ophthalmology Hernan Rosario DO [address] [place] [address] 07/28/2023 Office Visit Cardiology Susan Hyatt PA-C [address] [place] [address] 11/03/2023 Office Visit Family Medicine Adriana Lewis MD [address] [place] [address] Health Maintenance Due Date Last Done Comments Albumin/Creatinine Ratio 07/17/2005 07/17/2004 DXA Scan 04/23/2017 04/23/2015, 03/22, 01/22/2011, Additional history exists Depression Screening 04/25/2021 04/25/2020 COVID-19 Vaccine (4 - Moderna series) 08/11/2021 06/16/2021, 09/30/2020, 09/02/2020 CKD PHOS USE SMARTSET 52504 05/06/202204/22, 04/25/2020, 12/30/2019, Additional history exists CKD HGB USE SMARTSET 76624 01/05/202301/05, 04/25/2020, 12/30/2019, Additional history exists Influenza Vaccine (FLU shot) (#1) 2023 DTaP,Tdap,and Td Vaccines (2 - Td or Tdap) 07/02/2023 07/02/2013 GFR 08/11/2023 02/09/2023, 0602/2023, 09/01/2022, Additional history exists Pneumococcal Vaccine: 65+ Years Completed 12/05/2015, 06/23/2004 VITAMIN D LEVEL ONCE IN A LIFETIME-USE SMARTSET# 89670 Completed 02/10/2021, 05/29/2015, 01/22/2013, Additional history exists [...] as of this encounter Visit Diagnoses Diagnosis 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
--- OUTSIDE RECORDS SUMMARY | 2023-07-13 02:03 | External Medical Summary | Continuity of Care Document ---
Author Name Unknown Organization [facility] [address] [facility] [address] [id number] Care Team Providers Care Parts Analyst Name Role Phone Joshua Adriana Jairo Primary Care Physician [phone] [id number] Date(s): 04/21/23 - 04/21/23 [facility] [address] [facility] [address] [id number] Encounter Diagnosis Alopecia areata(Discharge Diagnosis) - 04/21/23 Discharge Disposition: Home or Self Care Attending Physician: MD Maki Thomas A Allergies, Adverse Reactions, Alerts Substance Reaction Severity Status Bactrim Eye swelling Active Assessment and Plan Extracted from: Title:Clinical Document Author:MD Glynn, Juliana Cesar Date:04/21/23 OUTPATIENT NOTE Name: ATIF CLEMENT Patient Number:1 [id number] : 1940 Date of Service: 04/21/2023 Katya Clement presents for evaluation of hair loss of several months duration noted by her hairdresser. This appears as a 70 mm area on the left occipital scalp and 35 mm on the right occipital scalp. Patient shampoos twice weekly and has not noted in over amount of hair coming out. Review of systems medications allergies as noted on the chart. The patient is in stable health. She lives in a personal [place]. She notes no prior history of hair loss. She has had normal thyroid function tests per the patient. She has been taking biotin. Examination reveals pleasant well-nourished white female with type I skin was alert and oriented x3 with normal mood and affect. Examination of the occipital scalp reveals the findings as noted above to alopecic patches with epilation of 5 hairs at the periphery with light pull. Clinical impression is that of alopecia areata. The lesions were injected with a total of 10 mg of triamcinolone into 30 injection sites including both right and left occipital scalp areas. Approximately 30 insertions. Patient was given a prescription for betamethasone cream to apply to the periphery of the alopecic areas on a twice daily basis and recommended application of minoxidil mousse 5% to be applied once daily. The patient will return in Medications aspirin Start: 09/30/22 8:22:00 EST Start Date: 09/30/22 Status: Ordered betamethasone dipropionate 0.05% topical cream Start: 04/21/23 13:50:00 EDT, 1 appl, topical, bid, Disp# 50 g, Refills: 2, apply to affected areason the scalp, Pharmacy: [facility] Start Date: 04/21/23 Status: Ordered bumetanide 2 [...] Start Date: 09/30/22 Status: Ordered Mental Status 04/21/23 Barriers to Learning one year None evide nt Mandatory Health Literacy Documentation Yes Health Literacy Communication Barriers N ever Primary Language Honduran Problem List No Chronic Problems Diagnosis Diagnosis Type Effective Dates Health Status Cl inical Service Informant Alopecia areata Discharge Diagnosis 04/21/23 Procedures Procedure Date Related Diagnosis Body Site Status Shave biopsy and cauterization of skin 09/30/22 Completed Social History Social History Type Response Smoking Status Never smoked cigaret danielle Sex Female Outpatient Note * MD Glynn, Truman Cesar: PERFORM Event Display: .Outpt Note Authored Date: [id number] OUTPATIENT NOTE Name: ATIF CLEMENT Patient Number:1 [id number] : 1940 Date of Service: 04/21/2023 Katya Clement presents for evaluation of hair loss of several months duration noted by her hairdresser. This appears as a 70 mm area on the left occipital scalp and 35 mm on the right occipital scalp.Patient shampoos twice weekly and has not noted in over amount of hair coming out. Review of systems medications allergies as noted on the chart. The patient is in stable health. Shelives in a personal penitentiary. She notes no prior history of hair loss. She has had normal thyroid function tests per the patient. She has been taking biotin. Examination reveals pleasant well-nourished white female with type I skin was alert and oriented x3with normal mood and affect. Examination of the occipital scalp reveals the findings as noted aboveto alopecic patches with epilation of 5 hairs at the periphery with light pull. Clinical impression is that of alopecia areata. The lesions were injected with a total of 10 mg of triamcinolone into 30 injection sites including both right and left occipital scalp areas. Approximately 30 insertions. Patient was given a prescription for betamethasone cream to apply to the periphery of the alopecic areas on a twice daily basis and recommended application of minoxidil mousse 5% to be applied once daily. The patient will return in Electronic Signature on File Electronically Reviewed/Signed by: Truman Maki MD Author Signature Dt/Tm:04/21/2023 02:09 PM Department of Dermatology [facility] Patient Care team information Care Team Personnel Name: MD Joshua, Adriana Gill Position: Referring Member Role: Primary Care Provider Address: Address: [address] [place] [address]
--- OUTSIDE RECORDS SUMMARY | 2023-07-13 02:04 | External Medical Summary | Summary of Care ---
Author Name Unknown Organization [facility] [address] [facility] [address] Phone [phone] Care Team Providers Care Sole Stitcher Hand Name Role Phone Adriana Lewis MD Primary Care Provider Reason for Visit * Reason Comments Follow Up Pt reportas large "b lack splash" in OS first occurred Tuesday then Tuesday none since then, no pain when black spot occurs Encounter Details Date Type Department Care Team Description 04/06/2023 Office Visit Ophthalmology, [facility] [address] [place] [address] Hernan Rosario, [address] [facility] [place] [address] Amaurosis fugax of left eye*; Intermediate stage nonexudative age-related macular degeneration of left eye Allergies Active Allergy Reactions Severity Noted Date Comments Calcitonin 02/03/2001 Itchy eyes Ezetimibe Muscle pain 01/28/2022 severe joint and muscle pains Statins Muscle pain 11/24/2010 Sulfa Antibiotics 02/03/2001 itching Sulfamethoxazole-Trimethopri m 10/28/2022 Other reaction(s): Eye swelling Tetracyclines & Related 02/03/2001 declymcin photo sensitivity Trimethoprim 10/28/2022 Other reaction(s): itchy yes, Swelling around eyes documented as of this encounter (statuses as of 04/06/2023) Medications Medication Sig Dispensed Refills Start Date [...] as of this encounter (statuses as of 04/06/2023) Active Problems Problem Noted Date Chronic heart [...] as of this encounter (statuses as of 04/06/2023) Resolved Problems Problem Noted Date Resolved Date [...] disorder 08/26/2011 05/30/2017 Genetic Sleep Disorder Research Other*[id number] 12/31/2010 03/18/2016 Obesity, morbid (more than 1 [...] as of this encounter (statuses as of 04/06/2023) Immunizations Name Administration Dates Next Due COVID-19 [...] Progress Notes * Hernan Rosario DO - 04/06/2023 11:45 AM EDT [facility] [place] Nursing notes reviewed. Eye vitals reviewed. Mood and Affect: normal HPI: Meera Clement is a 82 year old female who presents for evaluation of retina No other eye complaints. Denies significant pain. Base Eye Exam Visual Acuity (Snellen - Linear) Right Left Dist cc LPO 20/40 Dist ph cc 20/30-2 Tonometry (Tonopen, 11:34 AM) Right Left Pressure 35 13 Pupils Dark Shape React APD Right 8 Round Minimal None Left 3 Round Slow None Visual Bhakta (Counting fingers) Right Left Full Restrictions Total superior temporal, inferior temporal, superior nasal, inferior nasal deficiencies Extraocular Movement Right Left Full, Ortho Full, Ortho Neuro/Psych Oriented x3: Yes Mood/Affect: Normal Dilation Both eyes: 0.5% Proparacaine @ 11:32 AM Dilation #2 Left eye: 1.0% Mydriacyl, 2.5% Phenylephrine @ 11:34 AM Dilation Comments Patient cautioned that effects of dilation may last 2-7 hours dependant upon individual reaction. It was discussed that driving while dilated is not recommended. EXTERNAL: The ocular adnexae are unremarkable. SLE: Lids/Lashes: wnl OU Conjunctiva/Sclera: quiet OU Cornea: trace folds, no edema OD; clear OS Anterior Chamber: trace cell/flare OD; deep and quiet OS Iris: NVI w/ extropion OD; normal OS Lens: PCIOL OU Dilated [...] non touching choroidals OS: n/a A/P: 1. Amaurosis fugax OS -had episode of vison loss OS x 2 lasting several minutes over past 1 week -No OATES, jaw claudication, wt. loss, joint pain, scalp tenderness. -eye exam unchanged/unremarkable -check carotid duplex 2. Age-Related Macular Degeneration OU OD: wet -advanced, poor vision following endopth OS: dry -recommend AREDS2 MVI as directed and Amsler grid qday 3. h/o Endophthalmitis OD -s/p anti-VEGF injection 09/08/21 at [facility] -s/p tap and inject 09/11/21 at [facility] -finished moxifloxicin 400 qday 7 day course -no pain, hypopyon resolved -IOP wnl and choroidals resolved -discussed poor visual prognosis -pt does not wish to f/u w/ [facility] 4. Chronic RD OD -s/p endophthalmitis -no treatment recommended at this time -NVI OD and OHT; pt w/ some pain; will give rx for atropine tid prn 5. Pseudophakia OU -by Anmol -shea 6. Glaucoma suspect OS -based on c/d and ?nrr thinning -followed by Dr. Peace CC: Dr. Peace f/u w/ as scheduled 3-4 months, dilate OU and OCT OU Hernan Rosario DO documented in this encounter Nursing Notes * NITHYA Kahn - 04/06/2023 11:27 AM EDT Meera Clement is a 82 year old year old female who presents for AMD OU. Last Office Visit: 02/17/2023 (in office), Visit date not found (telemedicine) Patient currently states Pt reportas large "black splash" in OS first occurred Tuesday then Tuesday none since then, no pain when black spot occurs Are you diabetic? No Do you drive? no OCT image(s) of left eye acquired and filed/scanned into chart. documented in this encounter Plan of Treatment Upcoming Encounters Date Type Specialty Care Team Description 04/12/2023 Imaging Radiology 04/28/2023 Office Visit Family Medicine Adriana Lewis MD [address] [place] [address] 04/28/2023 Laboratory Laboratory [place] [address] [place] [address] 06/02/2023 Office Visit Ophthalmology Hernan Rosario DO [address] [place] [address] 07/28/2023 Office Visit Cardiology Susan Hyatt PA-C [address] [place] [address] Scheduled Orders Name Type Priority Associated Diagnoses Orde r Schedule VASC DUPLEX CAROTID BILAT Medical Imaging MARCEL Amaurosis fugax of left eye Expected: 04/07/2023, Expires: 05/07/2024 Health Maintenance Due Date Last Done Comments Zoster Vaccines (1 of 2) 1989 Albumin/Creatinine Ratio 07/17/2005 07/17/2004 DXA Scan 04/23/2017 04/23/2015, 03/22, 01/22/2011, Additional history exists Depression Screening, Annual for Pts 12 and Over 04/25/2021 04/25/2020 COVID-19 Vaccine (4 - Moderna series) 08/11/2021 06/16/2021, 09/30/2020, 09/02/2020 CKD PHOS USE SMARTSET 01156 05/06/202204/22, 04/25/2020, 12/30/2019, Additional history exists CKD HGB USE SMARTSET 13693 01/05/202301/05, 04/25/2020, 12/30/2019, Additional history exists Influenza Vaccine (FLU shot) (#1) 2023 HbA1c 06/09/2023 06/09/2022, 11/23/2016 DTaP,Tdap,and Td Vaccines (2 - Td or Tdap) 07/02/2023 07/02/2013 GFR 08/11/2023 02/09/2023, 0602/2023, 09/01/2022, Additional history exists Pneumococcal Vaccine: 65+ Years Completed 12/05/2015, 06/23/2004 VITAMIN D LEVEL ONCE IN A LIFETIME-USE SMARTSET# [id number] Completed 02/10/2021, 05/29/2015, 01/22/2013, Additional history exists [...] as of this encounter Visit Diagnoses Diagnosis Amaurosis fugax of left eye- Primary 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
--- OUTSIDE RECORDS SUMMARY | 2023-07-13 02:04 | External Medical Summary | Summary of Care ---
Author Name Unknown Organization [facility] [address] [facility] [address] Phone [phone] Care Team Providers Care Research Software Engineer Name Role Phone Adriana Lewis MD Primary Care Provider Encounter Details Date Type Department Care Team Description 02/09/2023 Orders Only Cardiology, [facility] [address] [place] [address] Susan Hyatt PA-C [address] [facility] [place] [address] Allergies Active Allergy Reactions Severity Noted Date Comments Calcitonin 02/03/2001 Itchy eyes Ezetimibe Muscle pain 01/28/2022 severe joint and muscle pains Statins Muscle pain 11/24/2010 Sulfa Antibiotics 02/03/2001 itching Sulfamethoxazole-Trimethopri m 10/28/2022 Other reaction(s): Eye swelling Tetracyclines & Related 02/03/2001 declymcin photo sensitivity Trimethoprim 10/28/2022 Other reaction(s): itchy yes, Swelling around eyes documented as of this encounter (statuses as of 02/09/2023) Medications Medication Sig Dispensed Refills Start Date [...] DAILY (CHOLESTEROL) 30 Tablet 5 07/19/2022 Active LORazepam 0.5 MG Oral Tablet (Ativan)Indications :TAYLOR (generalized anxiety disorder) Take 1 Tablet by mouth at bedtime. For anxiety/insomnia. Patient may decline. 30 Tablet 5 09/07/2022 Active Gabapentin 100 MG Oral Capsule (Neurontin)Indicati ons:Restless legs syndrome Take 1 Capsule by mouth 2 times a day. 1st dose in morning, 2nd dose in mid-afternoon. 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 This is in addition to regularly scheduled doses. To be used as needed when advised by Cardiology. 30 mL 5 02/04/2023 Active documented as of this encounter (statuses as of 02/09/2023) Active Problems Problem Noted Date Chronic heart [...] as of this encounter (statuses as of 02/09/2023) Resolved Problems Problem Noted Date Resolved Date [...] disorder 08/26/2011 05/30/2017 Genetic Sleep Disorder Research Other*[id number] 12/31/2010 03/18/2016 Obesity, morbid (more than 1 [...] as of this encounter (statuses as of 02/09/2023) Immunizations Name Administration Dates Next Due COVID-19 [...] Encounters Date Type Specialty Care Team Description 02/17/2023 Office Visit Ophthalmology Hernan Rosario, [address] [place] [address] 04/28/2023 Office Visit Family Medicine Adriana Lewis MD [address] [place] [address] 07/28/2023 Office Visit Cardiology Susan Hyatt PA-C [address] [place] [address] Health Maintenance Due Date Last Done Comments Zoster Vaccines (1 of 2) 1989 Albumin/Creatinine Ratio 07/17/2005 07/17/2004 DXA Scan 04/23/2017 04/23/2015, 03/22, 01/22/2011, Additional history exists Depression Screening, Annual for Pts 12 and Over 04/25/2021 04/25/2020 COVID-19 Vaccine (4 - Moderna series) 08/11/2021 06/16/2021, 09/30/2020, 09/02/2020 CKD PHOS USE SMARTSET 94216 05/06/202204/22, 04/25/2020, 12/30/2019, Additional history exists CKD HGB USE SMARTSET 52223 01/05/202301/05, 04/25/2020, 12/30/2019, Additional history exists Influenza Vaccine (FLU shot) (Season Ended) 2023 HbA1c 06/09/2023 06/09/2022, 11/23/2016 DTaP,Tdap,and Td Vaccines (2 - Td or Tdap) 07/02/2023 07/02/2013 GFR 07/28/2023 02/09/2023, 02/2023, 09/01/2022, Additional history exists Pneumococcal Vaccine: 65+ Years Completed 12/05/2015, 06/23/2004 VITAMIN D LEVEL ONCE IN A LIFETIME-USE SMARTSET# [id number] Completed 02/10/2021, 05/29/2015, 01/22/2013, Additional history exists [...] Priority Date/Time Associated Diagnosis Comments CHEMISTRY-OUTSIDE Routine 02/09/2023 documented in this encounter Results * (ABNORMAL) CHEMISTRY-OUTSIDE (02/09/2023) Not all results display below - see scan for full detail OUTSIDE LAB (SEE SCANNED REPORT) Comment:SEE SCAN - BMP CREATININE-OUTSID E LAB 1.00 0.6 - 1.2 MG/DL OUTSIDE LAB (SEE SCANNED REPORT) EGFR-OUTSIDE LAB 52.1 ML/MIN OUT SIDE LAB (SEE SCANNED REPORT) POTASSIUM-OUTSIDE LAB 3.9 3.5 - 5.1 MMOL/L OUTSIDE LAB (SEE SCANNED REPORT) GLUCOSE-OUTSIDE LAB 107(A) 70 - 99 MG/DL OUTSIDE LAB (SEE SCANNED REPORT) HOURS FASTING [...] LAB OUTSIDE LAB (SEE SCANNED REPORT) HEMOGLOBIN, [id number] LAB OUTSIDE LAB (SEE SCANNED REPORT) PHOSPHORUS-OUTSID E LAB OUTSIDE LAB (SEE SCANNED REPORT) PTH-OUTSIDE LAB OUTS CHER LAB (SEE SCANNED REPORT) MICROALBUMIN RATIO-OUTSIDE LAB OUTSIDE LA B (SEE SCANNED REPORT) PROTEIN, UA-OUTSIDE LAB OUTSIDE LAB (SEE SCANNED REPORT) HEMOGLOBIN-OUTSID E LAB OUTSIDE LAB (SEE SCANNED REPORT) 02/09/2023 Susan Hyatt PA-C LABORATORY OUTSIDE LAB (SEE SCANNED REPORT) documented in this encounter Care Teams Research Software Engineer Relationship Specialty Start Date End Date Adriana Lewis MD [address] [place] [address] PCP - General Internal Medicine 02/10/21 documented as of this encounter
--- OUTSIDE RECORDS SUMMARY | 2023-07-13 02:04 | External Medical Summary | Summary of Care ---
Author Name Unknown Organization [facility] Address [address] [facility] [address] Phone [phone] Care Team Providers Care Plaster And Stucco Worker Name Role Phone Adriana Lewis MD Primary Care Provider Reason for Visit * Reason Comments Follow Up F/u dil/oct ou, "Cou ple of weeks ago right eye achy-went to Dr. Peace but the pain was not there anymore and he gave me eye drop samples-it still hurts in corner of eye (pointing to outer corner)-think vision is worse" Encounter Details Date Type Department Care Team Description 02/17/2023 Office Visit Ophthalmology, [facility] [address] [facility] [place] [address] Hernan Rosario, [address] [facility] [place] [address] Intermediate stage nonexudative age-related macular degeneration of left eye*; Ocular hypertension of right eye Allergies Active Allergy Reactions Severity Noted Date Comments Calcitonin 02/03/2001 Itchy eyes Ezetimibe Muscle pain 01/28/2022 severe joint and muscle pains Statins Muscle pain 11/24/2010 Sulfa Antibiotics 02/03/2001 itching Sulfamethoxazole-Trimethopri m 10/28/2022 Other reaction(s): Eye swelling Tetracyclines & Related 02/03/2001 declymcin photo sensitivity Trimethoprim 10/28/2022 Other reaction(s): itchy yes, Swelling around eyes documented as of this encounter (statuses as of 02/17/2023) Medications Medication Sig Dispensed Refills Start Date [...] bedtime. 60 Tab 0 02/09/2016 Active oxygen GASIndications:Lo w oxygen saturation Use [...] 07/19/2022 Active LORazepam 0.5 MG Oral Tablet (Ativan)Indicatio ns:TAYLOR (generalized anxiety disorder) Take 1 Tablet by mouth at bedtime. For anxiety/insomnia. Patient may decline. 30 Tablet 5 09/07/2022 Active Gabapentin 100 MG Oral Capsule (Neurontin)Indica tions:Restless legs syndrome Take 1 Capsule by mouth [...] 12/02/2022 Active metOLazone 5 MG Oral Tablet (Zaroxolyn)Indica tions:Chronic right-sided heart failure (HCC) TAKE 1 TABLET BY MOUTH THREE TIMES WEEKLY ON MON,WED AND FRI FOR CHF NOT ON CYCLE PLEASE REORDER 12 Tablet 4 01/31/2023 Active Spironolactone 50 MG Oral Tablet (Aldactone)Indica [...] (eye pain). 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 This is in addition to regularly scheduled doses. To be used as needed when advised by Cardiology. 30 mL 5 02/04/2023 3 Discontinue d(Medicatio n List Clean Up) documented as of this encounter (statuses as of 02/17/2023) Active Problems Problem Noted Date Chronic heart [...] as of this encounter (statuses as of 02/17/2023) Resolved Problems Problem Noted Date Resolved Date [...] disorder 08/26/2011 05/30/2017 Genetic Sleep Disorder Research Other*[id number] 12/31/2010 03/18/2016 Obesity, morbid (more than 1 [...] as of this encounter (statuses as of 02/17/2023) Immunizations Name Administration Dates Next Due COVID-19 [...] of this encounter Progress Notes * Hernan Rosario, - 02/17/2023 8:15 AM EDT [facility] [place] Nursing notes reviewed. Eye vitals reviewed. Mood and Affect: normal HPI: Meera Clement is a 82 year old female who presents for evaluation of retina No other eye complaints. Denies significant pain. Base Eye Exam Visual Acuity (Snellen - Linear) Right Left Dist cc LPO 20/40 Dist ph cc NI 20/30 Correction: Glasses Tonometry (Tonopen, 8:21 AM) Right Left Pressure 34 21 Tonometry #2 (Tonopen, 8:21 AM) Right Left Pressure 34 Tonometry #3 (Tonopen, 8:21 AM) Right Left Pressure 32 Pupils Dark Light Shape React APD Right 8 8 Round none None Left 3 2.5 Round Sluggish None Visual Bhakta (Counting fingers) Right Left Full Restrictions Total superior temporal, inferior temporal, superior nasal, inferior nasal deficiencies Extraocular Movement Right Left Full, Ortho Full, Ortho Neuro/Psych Oriented x3: Yes Mood/Affect: Normal Dilation Both eyes: 0.5% Proparacaine @ 8:20 AM Dilation #2 Both eyes: 1.0% Mydriacyl, 2.5% Phenylephrine @ 8:20 AM Dilation Comments Patient cautioned that effects of dilation may last 2-7 hours dependant upon individual reaction. It was discussed that driving while dilated is not recommended. Strabismus Exam Correction: sc Observations: Ortho Distance Near Near +3DS N Bifocals cover/uncover, and alternate cover EXTERNAL: The ocular adnexae are unremarkable. SLE: [...] directed and Amsler grid qday 2. h/o Endophthalmitis OD -s/p anti-VEGF injection 1/18/22 at [facility] -s/p tap and inject 09/11/21 at [facility] -finished moxifloxicin 400 qday 7 day course -no pain, hypopyon resolved -IOP wnl and choroidals resolved -discussed poor visual prognosis -pt does not wish to f/u w/ [facility] 3. Chronic RD OD -s/p endophthalmitis -no treatment recommended at this time -NVI OD and OHT; pt w/ some pain; will give rx for atropine tid prn 4. Pseudophakia OU -by Anmol gaming 5. Glaucoma suspect OS -based on c/d and ?nrr thinning -followed by Dr. Peace CC: Dr. Peace f/u w/ me 3-4 months, dilate OU and OCT OU Hernan Rosario DO documented in this encounter Nursing Notes * Madelyn Pratt RN - 02/17/2023 8:12 AM EDT Meera Clement is a 82 year old year old female who presents for AMD OU. Last Office Visit: 10/28/2022 (in office), Visit date not found (telemedicine) Patient currently states Couple of weeks ago right eye achy-went to Dr. Peace but the pain was notthere anymore and he gave me eye drop samples-it still hurts in corner of eye (pointing to outer corner)-think vision is worse" Are you diabetic? No Do you drive? no OCT and Fundus image(s) of both eyes acquired and filed/scanned into chart. documented in this encounter Plan of Treatment Upcoming Encounters Date Type Specialty Care Team Description 04/28/2023 Office Visit Family Medicine Adriana Lewis MD [address] [place] [address] 06/02/2023 Office Visit Ophthalmology Hernan Rosario DO [address] [place] [address] 07/28/2023 Office Visit Cardiology Susan Hyatt PA-C [address] [place] [address] Health Maintenance Due Date Last Done Comments Zoster Vaccines (1 of 2) 1989 Albumin/Creatinine Ratio 07/17/2005 07/17/2004 DXA Scan 04/23/2017 04/23/2015, 03/22, 01/22/2011, Additional history exists Depression Screening, Annual for Pts 12 and Over 04/25/2021 04/25/2020 COVID-19 Vaccine (4 - Moderna series) 08/11/2021 06/16/2021, 09/30/2020, 09/02/2020 CKD PHOS USE SMARTSET 88369 05/06/202204/22, 04/25/2020, 12/30/2019, Additional history exists CKD HGB USE SMARTSET 63382 01/05/202301/05, 04/25/2020, 12/30/2019, Additional history exists Influenza Vaccine (FLU shot) (Season Ended) 2023 HbA1c 06/09/2023 06/09/2022, 11/23/2016 DTaP,Tdap,and Td Vaccines (2 - Td or Tdap) 07/02/2023 07/02/2013 GFR 08/11/2023 02/09/2023, 06/02/2023, 09/01/2022, Additional history exists Pneumococcal Vaccine: 65+ Years Completed 12/05/2015, 06/23/2004 VITAMIN D LEVEL ONCE IN A LIFETIME-USE SMARTSET# [id number] Completed 02/10/2021, 05/29/2015, 01/22/2013, Additional history exists [...] right eye Borderline glaucoma with ocular hypertension documented in this encounter Care Teams Plaster And Stucco Worker Relationship Specialty Start Date End Date Adriana Lewis MD [address] [place] [address] PCP - General Internal Medicine 02/10/21 documented as of this encounter
--- OUTSIDE RECORDS SUMMARY | 2023-07-13 02:04 | External Medical Summary | Summary of Care ---
Author Name Unknown Organization [facility] Address [address] [place] [address] Phone [phone] Care Team Providers Care Avionics Systems Technician Name Role Phone Codie Lewis MD Primary Care Provider Reason for Visit * Reason Comments eRx-Medication Refill Encounter Details Date Type Department Care Team Description 03/07/2023 Refill Family Practice [facility] [address] [facility] [place] [address] Barbara Odom, DO [facility] [place] [address] TAYLOR (generalized anxiety disorder) Allergies Active Allergy Reactions Severity Noted Date Comments Calcitonin 02/03/2001 Itchy eyes Ezetimibe Muscle pain 01/28/2022 severe joint and muscle pains Statins Muscle pain 11/24/2010 Sulfa Antibiotics 02/03/2001 itching Sulfamethoxazole-Trimethopri m 10/28/2022 Other reaction(s): Eye swelling Tetracyclines & Related 02/03/2001 declymcin photo sensitivity Trimethoprim 10/28/2022 Other reaction(s): itchy yes, Swelling around eyes documented as of this encounter (statuses as of 03/09/2023) Medications Medication Sig Dispensed Refills Start Date [...] DAILY (CHOLESTEROL) 30 Tablet 5 2 Active Gabapentin 100 MG Oral Capsule (Neurontin)Indica tions:Restless legs syndrome Take 1 Capsule by mouth 2 times a day. 1st dose in morning, 2nd dose in mid-afternoon. 56 Capsule 5 3 Active guaiFENesin ER 600 MG Oral Tablet [...] MAY DECLINE 30 Tablet 4 3 Active LORazepam 0.5 MG Oral Tablet (Ativan)Indicatio ns:TAYLOR (generalized anxiety disorder) Take 1 Tablet by mouth at bedtime. For anxiety/insomnia. Patient may decline. 30 Tablet 5 3 03/09/20 23 Discontinued documented as of this encounter (statuses as of 03/09/2023) Active Problems Problem Noted Date Chronic heart [...] as of this encounter (statuses as of 03/09/2023) Resolved Problems Problem Noted Date Resolved Date [...] disorder 08/26/2011 05/30/2017 Genetic Sleep Disorder Research Other*[id number] 12/31/2010 03/18/2016 Obesity, morbid (more than 1 [...] as of this encounter (statuses as of 03/09/2023) Immunizations Name Administration Dates Next Due COVID-19 [...] encounter Miscellaneous Notes * Telephone Encounter - Codie Lewis MD - 03/09/2023 3:21 PM EDT Signed Prescriptions: Disp Refills LORazepam 0.5 MG Oral Tablet (Ativan) 30 Tab*4 Sig: TAKE 1 TABLET BY MOUTH AT BEDTIME FOR ANXIETY/INSOMNIA PT MAY DECLINEAuthorizing Provider: CODIE LEWIS * Telephone Encounter - Codie Lewis MD - 03/09/2023 3:20 PM EDT I have reviewed the patient's controlled substance dispensing history in the Prescription Drug Monitoring Program in compliance with the [facility] regulations before prescribing a controlled substance. * Telephone Encounter - Alex Iyer [facility] - 03/09/2023 10:17 AM EDTPending Prescriptions: Disp Refills LORazepam 0.5 MG Oral Tablet [Pharmacy Med*30 Tab*4 Sig: TAKE 1 TABLET BY MOUTH AT BEDTIME FOR ANXIETY/INSOMNIA PT MAY DECLINE * Telephone Encounter - Alex Iyer [facility] - 03/09/2023 10:17 AM EDTPending Prescriptions: Disp Refills LORazepam 0.5 MG Oral Tablet [Pharmacy Med*30 Tab*4 Sig: TAKE 1 TABLET BY MOUTH AT BEDTIME FOR ANXIETY/INSOMNIA PT MAY DECLINE * Telephone Encounter - Alex Iyer RP - 03/09/2023 10:16 AM EDT I have reviewed the patients controlled substance dispensing history in the Prescription Drug Monitoring Program in compliance with the [facility] regulations before prescribing a controlled substance. PDMP checked on 03/09/2023. Pending Prescriptions: Disp Refills LORazepam 0.5 MG Oral Tablet (Ativan) [Ph*30 Tab*4 Sig: TAKE 1 TABLET BY MOUTH AT BEDTIME FOR ANXIETY/INSOMNIA PT MAY DECLINE Last Visit: 11/18/2022 (in office), 09/18/2020 (telemedicine) Next Visit: 04/28/2023 Date medication was last filled: 02/05/23 Date medication is due for refill: 03/06/23 Pharmacy: [facility] [address] Is this request for a controlled substance? Yes and Urine Drug Screen Not completed Toxicology results: No results found. However, due to the size of the patient record, not all encounters were searched.Please check Results Review for a complete set of results. Please approve if appropriate. Thanks, Alex Iyer [facility], Pharm D. Clinical Pharmacist Centralized Clinical Pharmacy Services (Formerly Telepharmacy)/[facility] [phone] 03/09/2023,10:16 AM * Telephone Encounter - Giuliana Lanier CPhT - 03/08/2023 9:14 AM EDT Did you pend patient's preferred pharmacy and medication before forwarding?yes Pharmacy: [facility] [place] [address] [address] [place] [address] Pending Prescriptions: Disp Refills LORazepam 0.5 MG Oral Tablet (Ativan) [Ph*30 Tab*4 Sig: TAKE 1 TABLET BY MOUTH AT BEDTIME FOR ANXIETY/INSOMNIA PT MAY DECLINE Last Visit: 11/18/2022 (in office), 09/18/2020 (telemedicine) Next Visit: 04/28/2023 If no future appointments scheduled, and last appointment is greater than a year ago, please schedule patient for a follow-up appointment Last date the medication was ordered: Is this request for a controlled substance?Yes, What was the last refill date w/ quantity 30 and dosage 0.5mg and Urine Drug Screen Not completed Urine Drug Screen:No results found. However, due [...] 15 2017 07:49 AM HGBA1C 5.9 (A) 06/09/2022 12:00 AM HGBA1C 5.3 11/23/2016 09:32 AM documented in this encounter Plan of Treatment Upcoming Encounters Date Type Specialty Care Team Description 04/28/2023 Office Visit Family Medicine Codie Lewis MD [address] [place] [address] 06/02/2023 Office Visit Ophthalmology Hernan Rosario DO [address] [place] [address] 07/28/2023 Office Visit Cardiology Susan Hyatt PA-C [address] [place] [address] Health Maintenance Due Date Last Done Comments Zoster Vaccines (1 of 2) 1989 Albumin/Creatinine Ratio 07/17/2005 07/17/2004 DXA Scan 04/23/2017 04/23/2015, 03/22, 01/22/2011, Additional history exists Depression Screening, Annual for Pts 12 and Over 04/25/2021 04/25/2020 COVID-19 Vaccine (4 - Moderna series) 08/11/2021 06/16/2021, 09/30/2020, 09/02/2020 CKD PHOS USE SMARTSET 10153 05/06/202204/22, 04/25/2020, 12/30/2019, Additional history exists CKD HGB USE SMARTSET 63415 01/05/202301/05, 04/25/2020, 12/30/2019, Additional history exists Influenza Vaccine (FLU shot) (#1) 2023 HbA1c 06/09/2023 06/09/2022, 11/23/2016 DTaP,Tdap,and Td Vaccines (2 - Td or Tdap) 07/02/2023 07/02/2013 GFR 08/11/2023 02/09/2023, 06/0 02/2023, 09/01/2022, Additional history exists Pneumococcal Vaccine: 65+ Years Completed 12/05/2015, 06/23/2004 VITAMIN D LEVEL ONCE IN A LIFETIME-USE SMARTSET# 19691 Completed 02/10/2021, 05/29/2015, 01/22/2013, Additional history exists [...] as of this encounter Visit Diagnoses Diagnosis ATYLOR (generalized anxiety disorder) Generalized anxiety disorder documented in this encounter Care Teams Avionics Systems Technician Relationship Specialty Start Date End Date Codie Lewis MD [address] [place] [address] PCP - General Internal Medicine 02/10/21 documented as of this encounter
--- OUTSIDE RECORDS SUMMARY | 2023-07-13 02:04 | External Medical Summary | Summary of Care ---
Author Name Unknown Organization [facility] Address [address] [place] [address] Phone [phone] Care Team Providers Care Javascript Engineer Name Role Phone Adriana Lewis MD Primary Care Provider Reason for Visit * Reason Onset Date Comments Health Maintenance 03/31/2023 Encounter Details Date Type Department Care Team Description 03/31/2023 Telephone Family Practice [facility] [address] [place] [address] Adriana Lewis MD [address] [place] [address] Health Maintenance Allergies Active Allergy Reactions Severity Noted Date Comments Calcitonin 02/03/2001 Itchy eyes Ezetimibe Muscle pain 01/28/2022 severe joint and muscle pains Statins Muscle pain 11/24/2010 Sulfa Antibiotics 02/03/2001 itching Sulfamethoxazole-Trimethopri m 10/28/2022 Other reaction(s): Eye swelling Tetracyclines & Related 02/03/2001 declymcin photo sensitivity Trimethoprim 10/28/2022 Other reaction(s): itchy yes, Swelling around eyes documented as of this encounter (statuses as of 03/31/2023) Medications Medication Sig Dispensed Refills Start Date [...] as of this encounter (statuses as of 03/31/2023) Active Problems Problem Noted Date Chronic heart [...] as of this encounter (statuses as of 03/31/2023) Resolved Problems Problem Noted Date Resolved Date [...] disorder 08/26/2011 05/30/2017 Genetic Sleep Disorder Research Other*[id number] 12/31/2010 03/18/2016 Obesity, morbid (more than 1 [...] as of this encounter (statuses as of 03/31/2023) Immunizations Name Administration Dates Next Due COVID-19 [...] encounter Miscellaneous Notes * Telephone Encounter - Radha Cummins LPN - 03/31/2023 9:16 AM EDT Care Gaps Comprehensive Care Outreach Last Office/Telemedicine Visit: 11/18/2022 (in office), 09/18/2020 (telemedicine) Next Office Visit: 04/28/2023 Hemoglobin AIC Results: Lab Results Component Value Date/Time HEMOGLOBIN A1C - AMILCARER 5.3 11/23/2016 09:32 AM Reviewed Health Maintenance below: Health Maintenance Topic Date Due Zoster Vaccines (1 of 2) Never done Albumin/Creatinine Ratio 07/17/2005 DXA Scan 04/23/2017 Depression Screening, Annual for Pts 12 and Over 04/25/2021 COVID-19 Vaccine (4 - Moderna series) 08/11/2021 CKD PHOS USE SMARTSET 28108 05/06/2022 CKD HGB USE SMARTSET 39042 01/05/2023 Influenza Vaccine (FLU shot) (1) 04/22/2023 HbA1c 06/09/2023 Labs/urine Ordered and scheduled after visit Care Gap Outreach Action Taken: Spoke to patient documented in this encounter Plan of Treatment Upcoming Encounters Date Type Specialty Care Team Description 04/28/2023 Office Visit Family Medicine Adriana Lewis MD [address] [place] [id number] 04/28/2023 Laboratory Laboratory [facility] [address] [place] [address] 06/02/2023 Office Visit Ophthalmology Hernan Rosario DO [address] [place] [address] 07/28/2023 Office Visit Cardiology Susan Hyatt PA-C [address] [place] [id number] Scheduled Orders Name Type Priority Associated Diagnoses Orde r Schedule ALBUMIN / CREATININE RATIO, URINE Lab Routine Chronic kidney disease, unspecified CKD stage Expected: 03/31/2023 (Approximate), Expires: 03/31/2024 PHOSPHORUS Lab Routine Chronic kidney disease, unspecified CKD stage Expected: 03/31/2023, Expires: 03/31/2024 CBC Lab Routine Chronic kidney disease, unspecified CKD stage Expected: 03/31/2023, Expires: 03/31/2024 HEMOGLOBIN A1C Lab Routine Prediabetes Expected: 03/31/2023, Expires: 03/31/2024 Health Maintenance Due Date Last Done Comments Zoster Vaccines (1 of 2) 1989 Albumin/Creatinine Ratio 07/17/2005 07/17/2004 DXA Scan 04/23/2017 04/23/2015, 03/22, 01/22/2011, Additional history exists Depression Screening, Annual for Pts 12 and Over 04/25/2021 04/25/2020 COVID-19 Vaccine (4 - Moderna series) 08/11/2021 06/16/2021, 09/30/2020, 09/02/2020 CKD PHOS USE SMARTSET 53861 05/06/202204/22, 04/25/2020, 12/30/2019, Additional history exists CKD HGB USE SMARTSET 35131 01/05/202301/05, 04/25/2020, 12/30/2019, Additional history exists Influenza Vaccine (FLU shot) (#1) 2023 HbA1c 06/09/2023 06/09/2022, 11/23/2016 DTaP,Tdap,and Td Vaccines (2 - Td or Tdap) 07/02/2023 07/02/2013 GFR 08/11/2023 02/09/2023, 02/2023, 09/01/2022, Additional history exists Pneumococcal Vaccine: 65+ Years Completed 12/05/2015, 06/23/2004 VITAMIN D LEVEL ONCE IN A LIFETIME-USE SMARTSET# [id number] Completed 02/10/2021, 05/29/2015, 01/22/2013, Additional history exists [...] as of this encounter Visit Diagnoses Diagnosis Prediabetes- Primary Other abnormal glucose Diabetes mellitus screening Screening for diabetes mellitus Chronic kidney disease, unspecified CKD stage documented in this encounter Care Teams Javascript Engineer Relationship Specialty Start Date End Date Adriana Lewis MD [address] [place] [id number] PCP - General Internal Medicine 02/10/21 documented as of this encounter
--- OUTSIDE RECORDS SUMMARY | 2023-07-13 02:04 | External Medical Summary | Summary of Care ---
Author Name Unknown Organization [facility] Address [address] [place] [address] Phone [phone] Care Team Providers Care Welding Machine Operator Name Role Phone Adriana Lewis MD Primary Care Provider Reason for Visit * Reason Comments eRx-Medication Refill Encounter Details Date Type Department Care Team Description 03/21/2023 Refill Family Practice [facility] [address] [place] [address] Adriana Lewis MD [address] [place] [id number] Restless legs syndrome Allergies Active Allergy Reactions Severity Noted Date Comments Calcitonin 02/03/2001 Itchy eyes Ezetimibe Muscle pain 01/28/2022 severe joint and muscle pains Statins Muscle pain 11/24/2010 Sulfa Antibiotics 02/03/2001 itching Sulfamethoxazole-Trimethopri m 10/28/2022 Other reaction(s): Eye swelling Tetracyclines & Related 02/03/2001 declymcin photo sensitivity Trimethoprim 10/28/2022 Other reaction(s): itchy yes, Swelling around eyes documented as of this encounter (statuses as of 03/22/2023) Medications Medication Sig Dispensed Refills Start Date [...] FOR MOOD 56 Capsule 5 3 Active Gabapentin 100 MG Oral Capsule (Neurontin)Indica tions:Restless legs syndrome Take 1 Capsule by mouth 2 times a day. 1st dose in morning, 2nd dose in mid-afternoon. 56 Capsule 5 3 03/22/20 23 Discontinued documented as of this encounter (statuses as of 03/22/2023) Active Problems Problem Noted Date Chronic heart [...] as of this encounter (statuses as of 03/22/2023) Resolved Problems Problem Noted Date Resolved Date [...] disorder 08/26/2011 05/30/2017 Genetic Sleep Disorder Research Other*[id number] 12/31/2010 03/18/2016 Obesity, morbid (more than 1 [...] as of this encounter (statuses as of 03/22/2023) Immunizations Name Administration Dates Next Due COVID-19 [...] encounter Miscellaneous Notes * Telephone Encounter - Adriana Lewis MD - 03/22/2023 1:27 PM EDT Signed Prescriptions: Disp Refills Gabapentin 100 MG Oral Capsule (Neurontin) 56 Cap*5 Sig: TAKE 1 CAPSULE BY MOUTH TWICE DAILY IN THE MORNING AND MID AFTERNOON FOR MOOD Authorizing Provider: ADRIANA LEWIS * Telephone Encounter - Michelle Nassar LPN - 03/22/2023 7:15 AM EDTPending Prescriptions: Disp Refills Gabapentin 100 MG Oral Capsule [Pharmacy M*56 Cap*5 Sig: TAKE 1 CAPSULE BY MOUTH TWICE DAILY IN THE MORNING AND MID AFTERNOON FOR MOOD * Telephone Encounter - Germaine Roman - 03/22/2023 1:35 AM EDTPending Prescriptions: Disp Refills Gabapentin 100 MG Oral Capsule [Pharmacy M*56 Cap*5 Sig: TAKE 1CAPSULE BY MOUTH TWICE DAILY IN THE MORNING AND MID AFTERNOON FOR MOOD documented in this encounter Plan of Treatment Upcoming Encounters Date Type Specialty Care Team Description 04/28/2023 Office Visit Family Medicine Adriana Lewis MD [address] [place] [id number] 06/02/2023 Office Visit Ophthalmology Hernan Rosario DO [address] [place] [address] 07/28/2023 Office Visit Cardiology Susan Hyatt PA-C [address] [place] [address] Health Maintenance Due Date Last Done Comments Zoster Vaccines (1 of 2) 1989 Albumin/Creatinine Ratio 07/17/2005 07/17/2004 DXA Scan 04/23/2017 04/23/2015, 03/22, 01/22/2011, Additional history exists Depression Screening, Annual for Pts 12 and Over 04/25/2021 04/25/2020 COVID-19 Vaccine (4 - Moderna series) 08/11/2021 06/16/2021, 09/30/2020, 09/02/2020 CKD PHOS USE SMARTSET 52292 05/06/202204/22, 04/25/2020, 12/30/2019, Additional history exists CKD HGB USE SMARTSET 49140 01/05/202301/05, 04/25/2020, 12/30/2019, Additional history exists Influenza Vaccine (FLU shot) (#1) 2023 HbA1c 06/09/2023 06/09/2022, 11/23/2016 DTaP,Tdap,and Td Vaccines (2 - Td or Tdap) 07/02/2023 07/02/2013 GFR 08/11/2023 02/09/2023, 02/2023, 09/01/2022, Additional history exists Pneumococcal Vaccine: 65+ Years Completed 12/05/2015, 06/23/2004 VITAMIN D LEVEL ONCE IN A LIFETIME-USE SMARTSET# [id number] Completed 02/10/2021, 05/29/2015, 01/22/2013, Additional history exists [...] as of this encounter Visit Diagnoses Diagnosis Restless legs syndrome Restless legs syndrome (RLS) documented in this encounter Care Teams Welding Machine Operator Relationship Specialty Start Date End Date Adriana Lewis MD [address] [place] [address] PCP - General Internal Medicine 02/10/21 documented as of this encounter
--- OUTSIDE RECORDS SUMMARY | 2023-07-13 02:05 | External Medical Summary | Summary of Care ---
Author Name Unknown Organization [facility] Address [address] [place] [address] Phone [phone] Care Team Providers Care Oil Process Stillman Name Role Phone Adriana Lewis MD Primary Care Provider Encounter Details Date Type Department Care Team Description 01/27/2023 Orders [address] [facility] [address] [facility] [place] [address] Adriana Lewis MD [address] [facility] [place] [address] Allergies Active Allergy Reactions Severity Noted Date Comments Calcitonin 02/03/2001 Itchy eyes Ezetimibe Muscle pain 01/28/2022 severe joint and muscle pains Statins Muscle pain 11/24/2010 Sulfa Antibiotics 02/03/2001 itching Sulfamethoxazole-Trimethopri m 10/28/2022 Other reaction(s): Eye swelling Tetracyclines & Related 02/03/2001 declymcin photo sensitivity Trimethoprim 10/28/2022 Other reaction(s): itchy yes, Swelling around eyes documented as of this encounter (statuses as of 01/27/2023) Medications Medication Sig Dispensed Refills Start Date [...] mouth daily. 30 Tab 11 05/06/2021 Active Spironolactone 50 MG Oral Tablet (Aldactone)Indicati ons:Secondary hypertension with goal blood pressure less than 140/90 TAKE 1 1/2 TABS BY MOUTH ONCE DAILY IN THE PM FOR HTN TAKE 2 TABS BY MOUTH ONCE DAILY IN THE AM FOR HTN 90 Tablet 5 02/03/2022 Active Potassium Chloride 40 MEQ/15ML (20%) Oral [...] DAILY (CHOLESTEROL) 30 Tablet 5 07/19/2022 Active Escitalopram Oxalate 10 MG Oral Tablet (Lexapro)Indication s:Current mild episode of major depressive disorder without prior episode (HCC) TAKE 1 TABLET BY MOUTH ONCE DAILY *DEPRESSION* 28 Tablet 5 08/19/2022 Active metOLazone 5 MG Oral Tablet (Zaroxolyn) TAKE 1 TABLET BY MOUTH THREE TIMES WEEKLY ON MON,WED AND FRI FOR CHF NOT ON CYCLE PLEASE REORDER Strength: 5 mg 12 Tablet 5 08/20/2022 Active Potassium Chloride 40 MEQ/15ML (20%) Oral SolutionIndications :Chronic right-sided heart failure (HCC),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 This is in addition to regularly scheduled doses. To be used as needed when advised by Cardiology. 30 mL 5 08/20/2022 Active Additional Information Patient not taking.Reported on 01/20/2023 LORazepam 0.5 MG Oral Tablet (Ativan)Indications :TAYLOR [...] DAILY (EDEMA) 84 Tablet 5 12/02/2022 Active documented as of this encounter (statuses as of 01/27/2023) Active Problems Problem Noted Date Chronic heart [...] as of this encounter (statuses as of 01/27/2023) Resolved Problems Problem Noted Date Resolved Date [...] disorder 08/26/2011 05/30/2017 Genetic Sleep Disorder Research Other*[id number] 12/31/2010 03/18/2016 Obesity, morbid (more than 1 [...] as of this encounter (statuses as of 01/27/2023) Immunizations Name Administration Dates Next Due COVID-19 [...] Team Description 02/17/2023 Office Visit Ophthalmology Hernan Rosario DO [address] [place] [address] 04/28/2023 Office Visit Family Medicine Adriana Lewis MD [address] [place] [address] 07/28/2023 Office Visit Cardiology Susan Hyatt PA-C [address] [place] [address] Pending Results Name Type Priority Associated Diagnoses Date /Time CHEMISTRY-OUTSIDE Lab Routine 023 TSH Lab Routine 01/26/2023 Health Maintenance Due Date Last Done Comments Zoster Vaccines (1 of 2) 1989 Albumin/Creatinine Ratio 07/17/2005 07/17/2004 DXA Scan 04/23/2017 04/23/2015, 03/22, 01/22/2011, Additional history exists Depression Screening, Annual for Pts 12 and Over 04/25/2021 04/25/2020 COVID-19 Vaccine (4 - Booster for Moderna series) 08/11/2021 06/16/2021, 09/30/2020, 09/02/2020 CKD PHOS USE SMARTSET 43478 05/06/202204/22, 04/25/2020, 12/30/2019, Additional history exists CKD HGB USE SMARTSET 99917 01/05/202301/05, 04/25/2020, 12/30/2019, Additional history exists GFR 03/01/2023 09/01/2022, 07/23, 08/10/2022, Additional history exists Influenza Vaccine (FLU shot) (Season Ended) 2023 HbA1c 06/09/2023 06/09/2022, 11/23/2016 DTaP,Tdap,and Td Vaccines (2 - Td or Tdap) 07/02/2023 07/02/2013 Pneumococcal Vaccine: 65+ Years Completed 12/05/2015, 06/23/2004 VITAMIN D LEVEL ONCE IN A LIFETIME-USE SMARTSET# [id number] Completed 02/10/2021, 05/29/2015, 01/22/2013, Additional history exists [...] filedocumented as of this encounter Care Teams Oil Process Stillman Relationship Specialty Start Date End Date Adriana Lewis MD [address] [place] [address] PCP - General Internal Medicine 02/10/21 documented as of this encounter
--- OUTSIDE RECORDS SUMMARY | 2023-07-13 02:05 | External Medical Summary | Summary of Care ---
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); Chronic diastolic (congestive) heart failure (HCC); Hypokalemia Allergies Active Allergy Reactions Severity Noted Date Comments Calcitonin 02/03/2001 Itchy eyes Ezetimibe Muscle pain 01/28/2022 severe joint and muscle pains Statins Muscle pain 11/24/2010 Sulfa Antibiotics 02/03/2001 itching Sulfamethoxazole-Trimethopri m 10/28/2022 Other reaction(s): Eye swelling Tetracyclines & Related 02/03/2001 declymcin photo sensitivity Trimethoprim 10/28/2022 Other reaction(s): itchy yes, Swelling around eyes documented as of this encounter (statuses as of 02/07/2023) Medications Medication Sig Dispensed Refills Start Date End Date Status ASPIRIN EC 81 MG PO TBECIndications: Mitral valve prolapse,HTN, goal below 140/90,Chest pain 1 TABLET DAILY 34 11 0 Active FISH OIL 1000 MG PO CAPS 3 capsules daily 0 Active Multiple Vitamins-Mineral s (PRESERVISION AREDS) Tablet Take 1 Tablet by mouth in the morning and 1 Tablet before bedtime. 60 Tab 0 6 Active oxygen GASIndications:L ow oxygen saturation Use 2 L/min(Oxygen) as directed [...] MG Oral Tablet Extended Release (Ferrous Sulfate ER)Indications:R estless legs syndrome Take 1 Tab by mouth daily. 30 Tab 11 1 Active Potassium Chloride 40 MEQ/15ML (20%) Oral SolutionIndicati ons:Chronic right-sided heart failure (HCC),Hypertensi ve heart and kidney disease with chronic right [...] DAILY (CHOLESTEROL) 30 Tablet 5 2 Active LORazepam 0.5 MG Oral Tablet (Ativan)Indicati ons:TAYLOR (generalized anxiety disorder) Take 1 Tablet by mouth at bedtime. For anxiety/insomnia . Patient may decline. 30 Tablet 5 3 Active Gabapentin 100 MG Oral Capsule (Neurontin)Indic ations:Restless legs syndrome Take 1 Capsule by mouth 2 times a day. 1st dose in morning, 2nd dose in mid-afternoon. 56 Capsule 5 3 Active guaiFENesin ER 600 MG Oral Tablet Extended Release 12 Hour (Mucinex)Indicat ions:Viral URI with cough Take 1 Tablet by mouth 2 times a day as needed for Congestion. Take with plenty of water. Do not cut, crush or chew 40 Tablet 2 3 Active Raloxifene HCl 60 MG Oral Tablet (Evista)Indicati ons:Osteoporosis TAKE ONE TABLET BY MOUTH ONCE DAILY FOR OSTEOPOROSIS 28 Tablet 5 3 Active Bumetanide 2 MG Oral Tablet 1 TABLET BY MOUTH 3 TIMES DAILY (EDEMA) 84 Tablet 5 3 Active metOLazone 5 MG Oral Tablet (Zaroxolyn)Indic ations:Chronic right-sided heart failure (HCC) TAKE 1 TABLET BY MOUTH THREE TIMES WEEKLY ON TUE,TUE AND TUE FOR CHF NOT ON CYCLE PLEASE REORDER 12 Tablet 4 3 Active Potassium Chloride 40 MEQ/15ML (20%) Oral SolutionIndicati ons:Chronic right-sided heart failure (HCC),Hypertensi ve heart and kidney disease with chronic right heart failure and stage 3 chronic kidney disease (HCC),Chronic diastolic (congestive) heart failure (HCC),Hypokalemi a Take 15mL by mouth today and tomorrow. This is in addition to regularly scheduled doses. To be used as needed when advised by Cardiology. 30 mL 5 3 Active Spironolactone 50 MG Oral Tablet (Aldactone)Indic ations:Secondary hypertension with goal blood pressure less than 140/90 TAKE 1 1/2 TABS BY MOUTH ONCE DAILY IN THE PM FOR HTN TAKE 2 TABS BY MOUTH ONCE DAILY IN THE AM FOR HTN 90 Tablet 5 2 02/01/20 23 Discontinued Escitalopram Oxalate 10 MG Oral Tablet (Lexapro)Indicat ions:Current mild episode of major depressive disorder without prior episode (HCC) TAKE 1 TABLET BY MOUTH ONCE DAILY *DEPRESSION* 28 Tablet 5 2 02/03/20 23 Discontinued metOLazone 5 MG Oral Tablet (Zaroxolyn) TAKE 1 TABLET BY MOUTH THREE TIMES WEEKLY ON TUE,TUE AND TUE FOR CHF NOT ON CYCLE PLEASE REORDER Strength: 5 mg 12 Tablet 5 2 02/01/20 23 Discontinued Potassium Chloride 40 MEQ/15ML (20%) Oral SolutionIndicati ons:Chronic right-sided heart failure (HCC),Hypertensi ve heart and kidney disease with chronic right heart failure and stage 3 chronic kidney disease (HCC),Chronic diastolic (congestive) heart failure (HCC),Hypokalemi a Take 15mL by mouth today and tomorrow. This is in addition to regularly scheduled doses. To be used as needed when advised by Cardiology. 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 Nursing staff made aware. * Telephone Encounter - Codie Lewis MD - 02/04/2023 5:27 PM EDT Prescription sent to [facility]. Should already have order on file at [facility], please double-check. (was pre-existing order from Cardiology) * Telephone Encounter - Sylvia Shi LPN - 02/01/2023 3:52 PM EDT Patient is calling. She is at [facility]. She has never been in [facility]. She got the message forthe potassium and blood work. She says they won't check her blood work till next Tuesday. Please send potassium order to [facility] * Telephone Encounter - Alexandria Miles LPN - 02/01/2023 11:52 AM EDT Called and spoke with pt. Pt is not longer at [facility], she is now at [facility] tel: Called and spoke with nursing and was informed that they need an order for the 2 doses of [facility]sent [facility] in [place] * Telephone Encounter - Codie Lewis MD - 01/31/2023 5:40 PM EDT Signed Prescriptions: Disp Refills metOLazone 5 MG Oral Tablet (Zaroxolyn) 12 Tab*4 Sig: TAKE 1 TABLET BY MOUTH THREE TIMES WEEKLY ON TUE,TUE AND TUE FOR CHF NOT ON CYCLE PLEASE REORDER Authorizing Provider: CODIE LEWIS * Telephone Encounter - Codie Lewis MD - 01/31/2023 5:39 PM EDT Patient's potassium is low at 3.3. Recommend taking 2 extra doses of liquid potassium supplement, Already prescribed by Cardiology. please call [facility] with instructions and recommendations. * Telephone Encounter - Ron Prado [facility] - 01/30/2023 11:29 PM EDT Pending Prescriptions: Disp Refills metOLazone 5 MG Oral Tablet [Pharmacy Med *12 Tab*4 Sig: TAKE 1 TABLET BY MOUTH THREE TIMES WEEKLY ON MON,WED AND FRI FOR CHF NOT ON CYCLE PLEASE REORDER * Telephone Encounter - Ron Prado [facility] - 01/30/2023 11:28 PM EDT Unable to authorize medication refills for pended medication(s) at this time. Part of the protocol criteria used for refill authorization was not satisfied. Patient has potassium outside normal limits. Please approve if appropriate. Thanks, Ron Prado, PharmD Clinical Pharmacist [facility] ([facility]) (formerly [facility]) [phone] 01/30/2023, 11:28 PM documented in this encounter Plan of Treatment Upcoming Encounters Date Type Specialty Care Team Description 02/17/2023 Office Visit Ophthalmology Hernan Rosario DO [address] [place] [address] 04/28/2023 Office Visit Family Medicine Codie Lewis MD [address] [place] [address] 07/28/2023 Office Visit Cardiology Susan Hyatt PA-C [address] [place] [address] Health Maintenance Due Date Last Done Comments Zoster Vaccines (1 of 2) 1989 Albumin/Creatinine Ratio 07/17/2005 07/17/2004 DXA Scan 04/23/2017 04/23/2015, 03/22, 01/22/2011, Additional history exists Depression Screening, Annual for Pts 12 and Over 04/25/2021 04/25/2020 COVID-19 Vaccine (4 - Moderna series) 08/11/2021 06/16/2021, 09/30/2020, 09/02/2020 CKD PHOS USE SMARTSET 96823 05/06/202204/22, 04/25/2020, 12/30/2019, Additional history exists CKD HGB USE SMARTSET 90022 01/05/202301/05, 04/25/2020, 12/30/2019, Additional history exists Influenza Vaccine (FLU shot) (Season Ended) 2023 HbA1c 06/09/2023 06/09/2022, 11/23/2016 DTaP,Tdap,and Td Vaccines (2 - Td or Tdap) 07/02/2023 07/02/2013 GFR 07/28/2023 01/26/2023, 08/22, 08/18/2022, Additional history exists Pneumococcal Vaccine: 65+ Years Completed 12/05/2015, 06/23/2004 VITAMIN D LEVEL ONCE IN A LIFETIME-USE SMARTSET# [id number] Completed 02/10/2021, 05/29/2015, 01/22/2013, Additional history exists [...] Visit Diagnoses Diagnosis Chronic right-sided heart failure (HCC)- Primary Congestive heart failure, unspecified 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
--- OUTSIDE RECORDS SUMMARY | 2023-07-13 02:05 | External Medical Summary | Summary of Care ---
Author Name Unknown Organization [facility] Address [address] [place] [address] Phone [phone] Care Team Providers Care Dirt Supervisor Name Role Phone Adriana Lewis MD Primary Care Provider Reason for Visit * Reason Onset Date Comments Test Results 02/01/2023 Encounter Details Date Type Department Care Team Description 02/01/2023 Telephone Cardiology, [facility] [address] [facility] [place] [address] Susan Hyatt PA-C [address] [place] [address] Test Results Allergies Active Allergy Reactions Severity Noted Date Comments Calcitonin 02/03/2001 Itchy eyes Ezetimibe Muscle pain 01/28/2022 severe joint and muscle pains Statins Muscle pain 11/24/2010 Sulfa Antibiotics 02/03/2001 itching Sulfamethoxazole-Trimethopri m 10/28/2022 Other reaction(s): Eye swelling Tetracyclines & Related 02/03/2001 declymcin photo sensitivity Trimethoprim 10/28/2022 Other reaction(s): itchy yes, Swelling around eyes documented as of this encounter (statuses as of 02/01/2023) Medications Medication Sig Dispensed Refills Start Date [...] DAILY *DEPRESSION* 28 Tablet 5 08/19/2022 Active Potassium Chloride 40 MEQ/15ML (20%) Oral [...] FOR HTN 120 Tablet 5 01/31/2023 Active documented as of this encounter (statuses as of 02/01/2023) Active Problems Problem Noted Date Chronic heart [...] as of this encounter (statuses as of 02/01/2023) Resolved Problems Problem Noted Date Resolved Date [...] disorder 08/26/2011 05/30/2017 Genetic Sleep Disorder Research Other*[id number] 12/31/2010 03/18/2016 Obesity, morbid (more than 1 [...] as of this encounter (statuses as of 02/01/2023) Immunizations Name Administration Dates Next Due COVID-19 [...] encounter Miscellaneous Notes * Telephone Encounter - Andrei Cali LPN - 02/01/2023 4:43 PM EDT Called [facility] and informed of Susan's message. BMP ordered and faxed. ----- Message from Susan Hyatt PA-C sent at 01/28/2023 11:13 AM EDT ----- Regarding: labs came to me Potassium is low again. Have patient take an extra dose of potassium today and tomorrow. In addition to regular dose. She has this order in [facility] to be done Needed. Please contact nursing facility and send orders. Repeat BMP early next week. documented in this encounter Plan of Treatment Upcoming Encounters Date Type Specialty Care Team Description 02/17/2023 Office Visit Ophthalmology Hernan Rosario, [address] [place] [address] 04/28/2023 Office Visit Family Medicine Adriana Lewis MD [address] [place] [address] 07/28/2023 Office Visit Cardiology Susan Hyatt PA-C [address] [place] [address] Scheduled Orders Name Type Priority Associated Diagnoses Orde r Schedule BASIC METABOLIC PANEL Lab Routine Hypokalemia Expected: 02/04/2023 (Approximate), Expires: 02/02/2024 Health Maintenance Due Date Last Done Comments Zoster Vaccines (1 of 2) 1989 Albumin/Creatinine Ratio 07/17/2005 07/17/2004 DXA Scan 04/23/2017 04/23/2015, 03/22, 01/22/2011, Additional history exists Depression Screening, Annual for Pts 12 and Over 04/25/2021 04/25/2020 COVID-19 Vaccine (4 - Moderna series) 08/11/2021 06/16/2021, 09/30/2020, 09/02/2020 CKD PHOS USE SMARTSET 98742 05/06/202204/22, 04/25/2020, 12/30/2019, Additional history exists CKD HGB USE SMARTSET 24829 01/05/202301/05, 04/25/2020, 12/30/2019, Additional history exists Influenza Vaccine (FLU shot) (Season Ended) 2023 HbA1c 06/09/2023 06/09/2022, 11/23/2016 DTaP,Tdap,and Td Vaccines (2 - Td or Tdap) 07/02/2023 07/02/2013 GFR 07/28/2023 01/26/2023, 08/22, 08/18/2022, Additional history exists Pneumococcal Vaccine: 65+ Years Completed 12/05/2015, 06/23/2004 VITAMIN D LEVEL ONCE IN A LIFETIME-USE SMARTSET# [id number] Completed 02/10/2021, 05/29/2015, 01/22/2013, Additional history exists [...] as of this encounter Visit Diagnoses Diagnosis Hypokalemia- Primary Hypopotassemia documented in this encounter Care Teams Dirt Supervisor Relationship Specialty Start Date End Date Adriana Lewis MD [address] [place] [address] PCP - General Internal Medicine 02/10/21 documented as of this encounter
--- OUTSIDE RECORDS SUMMARY | 2023-07-13 02:05 | External Medical Summary | Summary of Care ---
Author Name Unknown Organization [facility] [address] [facility] [address] Phone [phone] Care Team Providers Care Cryptologic Technician Technical Name Role Phone Adriana Lewis MD Primary Care Provider Reason for Visit * Reason Onset Date Comments Test Results 02/01/2023 Encounter Details Date Type Department Care Team Description 02/01/2023 Telephone Cardiology, [facility] [address] [facility] [place] [address] Susan Hyatt PA-C [address] [place] [address] Test Results Allergies Active Allergy Reactions Severity Noted Date Comments Calcitonin 02/03/2001 Itchy eyes Ezetimibe Muscle pain 01/28/2022 severe joint and muscle pains Statins Muscle pain 11/24/2010 Sulfa Antibiotics 02/03/2001 itching Sulfamethoxazole-Trimethopri m 10/28/2022 Other reaction(s): Eye swelling Tetracyclines & Related 02/03/2001 declymcin photo sensitivity Trimethoprim 10/28/2022 Other reaction(s): itchy yes, Swelling around eyes documented as of this encounter (statuses as of 02/08/2023) Medications Medication Sig Dispensed Refills Start Date [...] Active Escitalopram Oxalate 10 MG Oral Tablet (Lexapro)Indicat ions:Current mild episode of major depressive disorder without prior episode (HCC) TAKE 1 TABLET BY MOUTH ONCE DAILY *DEPRESSION* 28 Tablet 5 2 02/03/20 23 Discontinued Potassium Chloride 40 MEQ/15ML (20%) [...] as of this encounter (statuses as of 02/08/2023) Active Problems Problem Noted Date Chronic heart [...] as of this encounter (statuses as of 02/08/2023) Resolved Problems Problem Noted Date Resolved Date [...] disorder 08/26/2011 05/30/2017 Genetic Sleep Disorder Research Other*[id number] 12/31/2010 03/18/2016 Obesity, morbid (more than 1 [...] as of this encounter (statuses as of 02/08/2023) Immunizations Name Administration Dates Next Due COVID-19 mRNA, LNP-s, No Pre serve, 2-Dose Series (Moderna) 06/16/2021,09/30/2020,09/02/2020 Pneumococcal Conjugate Vacc, 13 Valent (Prevnar) 12/05/2015 Pneumococcal Polysaccharide PPV23 (Pneumovax) 06/23/2004 TDAP (age 10 and older)(Boostrix) 07/02/2013 documented [...] encounter Miscellaneous Notes * Telephone Encounter - Mitch Almonte RN - 02/08/2023 2:54 PM EDT Mary at [facility] notified of Susan Hyatt's message below. Telephone number [phone]. * Telephone Encounter - Susan Hyatt PA-C - 02/07/2023 4:10 PM EDT Repeat labs should be done this week. Please have them faxed when available. Also, I received letter in mail from patient with weights ranging 238-242. These seem to fluctuate but slowly trending higher. No significant change from weights recorded here (when fully dressed) Wt Readings from Last 3 Encounters: 01/20/23 110.2 kg (243 lb) 09/14/22 109.1 kg (240 lb 8 oz) 06/08/22 108.4 kg (239 lb) She is on max dose diuretic therapy and I'm unable to increase diuretics at this time based on weight gain, especially with lower potassium levels. I think she needs to monitor her food consumption and portion control, if not doing currently. Keep < 2000 mg of sodium daily * Telephone Encounter - Andrei Cali LPN - 02/01/2023 4:43 PM EDT Called [facility] and informed of Susan's message. BMP ordered [...] Rosario DO [address] [place] [address] 04/28/2023 Office Visit Family Medicine Adriana Lewis MD [address] [place] [address] 07/28/2023 Office Visit Cardiology Susan Hyatt PA-C [address] [place] [address] Scheduled Orders Name Type Priority Associated Diagnoses [...] 06/16/2021, 09/30/2020, 09/02/2020 CKD PHOS USE SMARTSET 26280 05/06/202204/22, 04/25/2020, 12/30/2019, Additional history exists CKD HGB USE SMARTSET 38710 01/05/202301/05, 04/25/2020, 12/30/2019, Additional history exists Influenza Vaccine (FLU shot) (Season Ended) 2023 HbA1c 06/09/2023 06/09/2022, 11/23/2016 DTaP,Tdap,and Td Vaccines (2 - Td or Tdap) 07/02/2023 07/02/2013 GFR 07/28/2023 01/26/2023, 08/22, 08/18/2022, Additional history exists Pneumococcal Vaccine: 65+ Years Completed 12/05/2015, 06/23/2004 VITAMIN D LEVEL ONCE IN A LIFETIME-USE SMARTSET# [id number] Completed 02/10/2021, 05/29/2015, 01/22/2013, Additional history exists [...] Hypopotassemia documented in this encounter Care Teams Cryptologic Technician Technical Relationship Specialty Start Date End Date Adriana Lewis MD [address] [facility] [place] [address] PCP - General Internal Medicine 02/10/21 documented as of this encounter
--- OUTSIDE RECORDS SUMMARY | 2023-07-13 02:05 | External Medical Summary | Summary of Care ---
Author Name Unknown Organization [facility] Address [address] [place] [address] Phone [phone] Care Team Providers Care Assembler Unit Name Role Phone Adriana Lewis MD Primary Care Provider Reason for Visit * Reason Comments Follow Up R shoulder Encounter Details Date Type Department Care Team Description 01/27/2023 Office Visit Orthopaedics [facility] [address] [facility] [place] [address] Chadwick Horne PA-C [address] [facility] [place] [address] Tendinopathy of right rotator cuff* Allergies Active Allergy Reactions Severity Noted Date [...] DAILY (EDEMA) 84 Tablet 5 12/02/2022 Active Hospital, Clinic, or Other Facility Administered Medication Ordered Dose Route Frequency Start Date End Date Status lidocaine 1% 1 mL - triamcinolone acetonide 40 mg/mL 1 mL inj 2 mLIndications:Tendinopathy of right rotator cuff 2 mL IJ ONCE 01/27/2023 01/27/2023 End ed documented as of this encounter (statuses as [...] disorder 08/26/2011 05/30/2017 Genetic Sleep Disorder Research Other*[id number] 12/31/2010 03/18/2016 Obesity, morbid (more than 1 [...] as of this encounter Progress Notes * Chadwick Horne PA-C - 01/27/2023 8:49 AM EDTAssociated Order(s): LG Joint Inj/Arthro: R subacromial bursa Post-Procedure Diagnose(s): Tendinopathy of right rotator cuff Established patient with well documented right shoulder pain secondary to rotator cuff tendinopathy. The patient has utilize they continues to perform physical therapy exercises learned in formal PT.Feels like this keeps her symptoms at baseline but reports the injections overall provide her the most relief. Has been 6 months since her last injection. The patient is aware that without an MRI recently on file she could have rotator cuff tear that the injections may exacerbate. Patient reports that she is not interested in any type of surgical intervention therefore we would like to avoid an MRI it also take the risk of exacerbating rotator cuff pathology with an injection. We also discussedPRP the patient is not interested in paying [id number] for this. Patient has pain with the rightupper extremity with shoulder level and overhead activity. Denies any recent injury or fall. Deniesnumbness or tingling. Denies any symptoms coming from cervical spine. I would like to re-x-ray the right shoulder today as her prior radiographs are over 1 year and there was early evidence of degeneration of the glenohumeral joint. General: alert and oriented x3 female, no acute distress, appears currently stated age, pleasant, well nourished Skin: Right upper extremity including shoulder does not reveal any erythema, ecchymosis, abrasion, laceration, skin breakdown otherwise Neurovascular: Right upper extremity reveals distal pulses +2, capillary refill is under 2 seconds,good sensation light touch, +5 center director strength, axillary median ulnar radial nerve assess fully intact Musculoskeletal: RIGHT SHOULDER: NVI axillary/medial/radial/ulnar and sensory intact Forward Flexion: 180 degrees with pain Abduction: 90 degrees with pain External rotation at 0 degrees: 70 degrees Internal Rotation: T7 Strength: Forward flexion: 5/5 with pain Abduction: 5/5 with pain External Rotation: 5/5 Internal Rotation: 5/5 Pain with Chloe's and scaption, no weakness Speed test: Pain Yergason's: negative Tender to palpation ACJ: negative Tender to palpation LHB: negative Hurd test: Positive O'Briens: negative Hornblowers: negative Lift off: negative Belly Press: negative Bear Hug: negative External lag sign: negative Cross-body adduction: negative Sulcus sign: negative X-rays of the patient's right shoulder reveal humeral head located in glenoid fossa. There is no superior migration humeral head. The AC joint is free of separation. I do appreciate advancing osteoarthritis in the glenohumeral joint with inferior spurring notice a goat's craft. No acute findings such as fracture dislocation subluxation. Unable to identify any type of obvious cystic change or masses in the bone. 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 They were educated regarding their diagnosis. The patient continues to examine and report her symptoms being mainly in the referred rotator cuff location. She is had greater than 9 months relief with prior subacromial approach with injection in his aware there are adverse reactions with corticosteroid. Patient is not interested in any type of surgical procedure nor likely a surgical candidate. Patient is aware minimum relief we would likely begin approaching the glenohumeral joint in future visits. She would like to call for next appointment I feel that is appropriate. The patient will call for that discussion follow-up and I feel that is appropriate. Would happily see her back sooner upon her request. The patient has no other questions or concerns. Pleased with today 's care. Call sooner if needed. Patient instructed to call or return to clinic for fever or warmth and redness at injection site for potential infection. Patient also advised as to potential for steroid flare reaction including increased pain and redness at injection site which should be treated with ice and resolve within 24 hours. LG Joint Inj/Arthro: R subacromial bursa on 01/27/2023 9:19 AM Indications: pain Details: 22 G needle, posterior approach Medications: (Triamcinolone lidocaine) Outcome: tolerated well, no immediate complications Procedure, treatment alternatives, risks and benefits explained, specific risks discussed. Consent was given by the patient. Immediately prior to procedure a time out was called to verify the correctpatient, procedure, equipment, support merchandiser and site/side marked as required. Patient was prepped and draped in the usual sterile fashion. This chart was completed in part utilizing [employer] Speech Voice Recognition Software. Grammatical errors, random word insertions, prounoun errors, and incomplete sentences are an occasional consequence of this system due to software limitations, ambient noise, and hardware issues. Any formal questions or concerns about the content, text, or information contained within the body of this dictation should be directly addressed to the provider for clarification. documented in this encounter Nursing Notes * Shyla Abernathy ATC - 01/27/2023 8:45 AM EDT R shoulder pain. Hx of R shoulder issues. Increased pain over the past week. Would like an injection as the last injection worked well. documented in this encounter Plan of Treatment Upcoming Encounters Date Type Specialty Care Team Description 02/17/2023 Office Visit Ophthalmology Hernan Rosario DO [address] [place] [address] 04/28/2023 Office Visit Family Medicine Adriana Lewis MD [address] [place] [address] 07/28/2023 Office Visit Cardiology Susan Hyatt PA-C [address] [place] [address] Pending Results Name Type Priority Associated Diagnoses Date /Time XR SHOULDER, 2 OR MORE VIEWS Medical Imaging Routine 01/27/2023 9:01 AM EDT Health Maintenance Due Date Last Done Comments Zoster Vaccines (1 of 2) 1989 Albumin/Creatinine Ratio 07/17/2005 07/17/2004 DXA Scan 04/23/2017 04/23/2015, 03/22, 01/22/2011, Additional history exists Depression Screening, Annual for Pts 12 and Over 04/25/2021 04/25/2020 COVID-19 Vaccine (4 - Booster for Moderna series) 08/11/2021 06/16/2021, 09/30/2020, 09/02/2020 CKD PHOS USE SMARTSET 23262 05/06/202204/22, 04/25/2020, 12/30/2019, Additional history exists CKD HGB USE SMARTSET 42177 01/05/202301/05, 04/25/2020, 12/30/2019, Additional history exists GFR 03/01/2023 09/01/2022, 07/23, 08/10/2022, Additional history exists Influenza Vaccine (FLU shot) (Season Ended) 2023 HbA1c 06/09/2023 06/09/2022, 11/23/2016 DTaP,Tdap,and Td Vaccines (2 - Td or Tdap) 07/02/2023 07/02/2013 Pneumococcal Vaccine: 65+ Years Completed 12/05/2015, 06/23/2004 VITAMIN D LEVEL ONCE IN A LIFETIME-USE SMARTSET# [id number] Completed 02/10/2021, 05/29/2015, 01/22/2013, Additional history exists [...] Procedure Name Priority Date/Time Associated Diagnosis Comments MN ARTHROCENTESIS ASPIR&/INJ MAJOR JT/BURSA W/O US Routine 01/27/2023 9:19 AM EDT Tendinopathy of right rotator cuff documented in this encounter Results * MN ARTHROCENTESIS ASPIR&/INJ MAJOR JT/BURSA W/O US (01/27/2023 9:19 AM EDT) Narrative Chadwick Horne PA-C - 01/27/2023 9:19 AM EDT Chadwick Horne PA-C 01/27/2023 9:20 AM LG Joint Inj/Arthro: R subacromial bursa on 01/27/2023 9:19 AM Indications: pain Details: 22 G needle, posterior approach Medications: (Triamcinolone lidocaine) Outcome: tolerated well, no immediate complications Procedure, treatment alternatives, risks and benefits explained, specific risks discussed. Consent was given by the patient. Immediately prior to procedure a time out was called to verify the correct patient, procedure, equipment, support merchandiser and site/side marked as required. Patient was prepped and draped in the usual sterile fashion. Chadwick Horne PA-C PROCDOC FORM documented in this encounter Visit Diagnoses Diagnosis Tendinopathy of right rotator cuff- Primary documented in this encounter Administered Medications Inactive Administered Medications - up to 3 most recent administrations Medication Order MAR Action Action Date Dose Rate Site lidocaine 1% 1 mL - triamcinolone acetonide 40 mg/mL 1 mL inj 2 mL 2 mL, Injection, ONCE, On Elizabeth 01/27/23 at 1000, For 1 dose, Lidocaine 1% 1mL Triamcinolone Acetonide 40 mg/mL 1 mL (Final concentration = 20 mg/mL) REFRIGERATE and SHAKE WELL Given 01/27/2023 10:02 AM EDT 2 mL Shoulder Right documented in this encounter Care Teams Assembler Unit Relationship Specialty Start Date End Date Adriana Lewis MD [address] [place] [address] PCP - General Internal Medicine 02/10/21 documented as of this encounter
--- OUTSIDE RECORDS SUMMARY | 2023-07-13 02:05 | External Medical Summary | Summary of Care ---
Author Name Unknown Organization [facility] Address [address] [facility] [address] Phone [phone] Care Team Providers Care District Manager Major Accounts Sales Name Role Phone Adriana Lewis MD Primary Care Provider Reason for Visit * Reason Onset Date Comments Test Results 02/01/2023 Encounter Details Date Type Department Care Team Description 02/01/2023 Telephone Cardiology, [facility] [address] [facility] [place] [address] Susan Hyatt PA-C [address] [place] [address] Test Results Allergies Active Allergy Reactions Severity [...] disorder 08/26/2011 05/30/2017 Genetic Sleep Disorder Research Other*[id number] 12/31/2010 03/18/2016 Obesity, morbid (more than 1 [...] LPN - 02/01/2023 4:43 PM EDT Called [facility] and informed of Susan's message. BMP ordered [...] Description 02/17/2023 Office Visit Ophthalmology Hernan Rosario, DO [address] [place] [address] 04/28/2023 Office Visit Family Medicine Adriana Lewis MD [address] [place] [address] 07/28/2023 Office Visit Cardiology Susan Hyatt PA-C [address] [place] [address] Scheduled Orders Name Type Priority Associated Diagnoses [...] 06/16/2021, 09/30/2020, 09/02/2020 CKD PHOS USE SMARTSET 52554 05/06/202204/22, 04/25/2020, 12/30/2019, Additional history exists CKD HGB USE SMARTSET 65224 01/05/202301/05, 04/25/2020, 12/30/2019, Additional history exists Influenza Vaccine (FLU shot) (Season Ended) 2023 HbA1c 06/09/2023 06/09/2022, 11/23/2016 DTaP,Tdap,and Td Vaccines (2 - Td or Tdap) 07/02/2023 07/02/2013 GFR 07/28/2023 01/26/2023, 08/22, 08/18/2022, Additional history exists Pneumococcal Vaccine: 65+ Years Completed 12/05/2015, 06/23/2004 VITAMIN D LEVEL ONCE IN A LIFETIME-USE SMARTSET# [id number] Completed 02/10/2021, 05/29/2015, 01/22/2013, Additional history exists [...] Hypopotassemia documented in this encounter Care Teams District Manager Major Accounts Sales Relationship Specialty Start Date End Date Adriana Lewis MD [address] [place] [address] PCP - General Internal Medicine 02/10/21 documented as of this encounter
--- OUTSIDE RECORDS SUMMARY | 2023-07-13 02:05 | External Medical Summary | Summary of Care ---
Author Name Unknown Organization [facility] Address [address] [place] [address] Phone [phone] Care Team Providers Care Pipeline Inspector Name Role Phone Adriana Lewis MD Primary Care Provider Reason for Visit * Reason Comments eRx-Medication Refill Encounter Details Date Type Department Care Team Description 01/31/2023 Refill Family Practice [facility] [address] [place] [id number] Adriana Lewis MD [address] [facility] [place] [id number] Current mild episode of major depressive disorder without prior episode (HCC) Allergies Active Allergy Reactions Severity Noted Date Comments Calcitonin 02/03/2001 Itchy eyes Ezetimibe Muscle pain 01/28/2022 severe joint and muscle pains Statins Muscle pain 11/24/2010 Sulfa Antibiotics 02/03/2001 itching Sulfamethoxazole-Trimethopri m 10/28/2022 Other reaction(s): Eye swelling Tetracyclines & Related 02/03/2001 declymcin photo sensitivity Trimethoprim 10/28/2022 Other reaction(s): itchy yes, Swelling around eyes documented as of this encounter (statuses as of 02/02/2023) Medications Medication Sig Dispensed Refills Start Date [...] DAILY (CHOLESTEROL) 30 Tablet 5 2 Active Potassium Chloride 40 MEQ/15ML (20%) Oral SolutionIndicatio ns:Chronic right-sided heart failure (HCC),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 This is in addition to regularly scheduled doses. To be used as needed when advised by Cardiology. 30 mL 5 2 Active Additional Information Patient not taking.Reported on 01/20/2023 LORazepam 0.5 MG Oral Tablet (Ativan)Indicatio ns:TAYLOR [...] DAILY *DEPRESSION* 28 Tablet 5 3 Active Escitalopram Oxalate 10 MG Oral Tablet (Lexapro)Indicati ons:Current mild episode of major depressive disorder without prior episode (HCC) TAKE 1 TABLET BY MOUTH ONCE DAILY *DEPRESSION* 28 Tablet 5 2 02/03/20 23 Discontinued documented as of this encounter (statuses as of 02/02/2023) Active Problems Problem Noted Date Chronic heart [...] lower extremity 0 04/24/2019 Overview: Goes to [facility] for lymphedema therapy Chronic right-sided heart failure 2018 Dyslipidemia 06/04/2016 Mitral valve prolapse 06/29/2005 HTN, goal below 130/80 01/30/2003 Senile osteoporosis 01/30/2003 documented as of this encounter (statuses as of 02/02/2023) Resolved Problems Problem Noted Date Resolved Date [...] disorder 08/26/2011 05/30/2017 Genetic Sleep Disorder Research Other*[id number] 12/31/2010 03/18/2016 Obesity, morbid (more than 1 [...] as of this encounter (statuses as of 02/02/2023) Immunizations Name Administration Dates Next Due COVID-19 [...] encounter Miscellaneous Notes * Telephone Encounter - Debra Umana [facility] - 02/02/2023 8:34 AM EDTSigned Prescriptions: Disp Refills Escitalopram Oxalate 10 MG Oral Tablet (Le*28 Tab*5 Sig: TAKE 1 TABLET BY MOUTH ONCE DAILY *DEPRESSION*Authorizing Provider: ADRIANA LEWIS User: DEBRA UMANA documented in this encounter Plan of Treatment Upcoming Encounters Date Type Specialty Care Team Description 02/17/2023 Office Visit Ophthalmology Hernan Rosario DO [address] [place] [id number] 04/28/2023 Office Visit Family Medicine Adriana Lewis MD [address] [place] [id number] 07/28/2023 Office Visit Cardiology Susan Hyatt PA-C [address] [place] [id number] Health Maintenance Due Date Last Done Comments Zoster Vaccines (1 of 2) 1989 Albumin/Creatinine Ratio 07/17/2005 07/17/2004 DXA Scan 04/23/2017 04/23/2015, 03/22, 01/22/2011, Additional history exists Depression Screening, Annual for Pts 12 and Over 04/25/2021 04/25/2020 COVID-19 Vaccine (4 - Moderna series) 08/11/2021 06/16/2021, 09/30/2020, 09/02/2020 CKD PHOS USE SMARTSET 66989 05/06/202204/22, 04/25/2020, 12/30/2019, Additional history exists CKD HGB USE SMARTSET 21353 01/05/202301/05, 04/25/2020, 12/30/2019, Additional history exists Influenza Vaccine (FLU shot) (Season Ended) 2023 HbA1c 06/09/2023 06/09/2022, 11/23/2016 DTaP,Tdap,and Td Vaccines (2 - Td or Tdap) 07/02/2023 07/02/2013 GFR 07/28/2023 01/26/2023, 08/22, 08/18/2022, Additional history exists Pneumococcal Vaccine: 65+ Years Completed 12/05/2015, 06/23/2004 VITAMIN D LEVEL ONCE IN A LIFETIME-USE SMARTSET# [id number] Completed 02/10/2021, 05/29/2015, 01/22/2013, Additional history exists [...] as of this encounter Visit Diagnoses Diagnosis Current mild episode of major depressive disorder without prior episode (HCC) documented in this encounter Care Teams Pipeline Inspector Relationship Specialty Start Date End Date Adriana Lewis MD [address] [place] [id number] PCP - General Internal Medicine 02/10/21 documented as of this encounter
--- OUTSIDE RECORDS SUMMARY | 2023-07-13 02:06 | External Medical Summary | Summary of Care ---
Author Name Unknown Organization [facility] Address [address] [place] [address] Phone [phone] Care Team Providers Care Textile Finisher Name Role Phone Adriana Lewis MD Primary Care Provider Reason for Visit * Reason Comments Follow Up R shoulder Encounter Details Date Type Department Care Team Description 01/27/[address] [facility] [address] [facility] [place] [address] Chadwick Horne PA-C [address] [facility] [place] [address] Tendinopathy of right rotator cuff* Allergies Active [...] cuff 2 mL IJ ONCE 01/27/2023 01/27/2023 Act pedro documented as of this encounter (statuses as [...] disorder 08/26/2011 05/30/2017 Genetic Sleep Disorder Research Other*[id number] 12/31/2010 03/18/2016 Obesity, morbid (more than 1 [...] of this encounter Progress Notes * Chadwick Hu RACHEL Horne - 01/27/2023 8:49 AM EDTAssociated Order(s): LG Joint Inj/Arthro: R subacromial bursa Post-Procedure Diagnose(s): Tendinopathy of right rotator cuff Established patient with well documented right shoulder pain secondary to rotator cuff tendinopathy. The patient has utilize they continues to perform physical therapy exercises learned in formal PT. Feels like this keeps her symptoms at baseline [...] cuff pathology with an injection. We also discussed PRP the patient is not interested in paying [id number] for this. Patient has pain with the right upper extremity with shoulder level and overhead activity. Denies any recent injury or fall. Denies numbness or tingling. Denies any symptoms coming from cervical spine. I would like to re-x-ray theright shoulder today as her prior radiographs are [...] under 2 seconds,good sensation light touch, +5 cracking unit operator strength, axillary median ulnar radial nerve assess [...] called to verify the correctpatient, procedure, equipment, practice support specialist and site/side marked as required. Patient was prepped and draped in the usual sterile fashion. This chart was completed in part utilizing [employer] Speech Voice Recognition Software. Grammatical errors, random [...] Hernan Rosario DO [address] [place] [address] 04/28/2023 Office Visit Family Medicine Adriana Lewis MD [address] [place] [address] 07/28/2023 Office Visit Cardiology Susan Hyatt PA-C [address] [place] [address] Pending Results Name Type Priority Associated Diagnoses [...] 06/16/2021, 09/30/2020, 09/02/2020 CKD PHOS USE SMARTSET 04930 05/06/202204/22, 04/25/2020, 12/30/2019, Additional history exists CKD HGB USE SMARTSET 28839 01/05/202301/05, 04/25/2020, 12/30/2019, Additional history exists GFR 03/01/2023 09/01/2022, 07/23, 08/10/2022, Additional history exists Influenza Vaccine (FLU shot) (Season Ended) 2023 HbA1c 06/09/2023 06/09/2022, 11/23/2016 DTaP,Tdap,and Td Vaccines (2 - Td or Tdap) 07/02/2023 07/02/2013 Pneumococcal Vaccine: 65+ Years Completed 12/05/2015, 06/23/2004 VITAMIN D LEVEL ONCE IN A LIFETIME-USE SMARTSET# [id number] Completed 02/10/2021, 05/29/2015, 01/22/2013, Additional history exists [...] Procedure Name Priority Date/Time Associated Diagnosis Comments DC ARTHROCENTESIS ASPIR&/INJ MAJOR JT/BURSA W/O US Routine 01/27/2023 9:19 AM EDT Tendinopathy of right rotator cuff documented in this encounter Results * DC ARTHROCENTESIS ASPIR&/INJ MAJOR JT/BURSA W/O US (01/27/2023 [...] to verify the correct patient, procedure, equipment, practice support specialist and site/side marked as required. Patient was prepped and draped in the usual sterile fashion. Chadwick Horne PA-C PROCDOC FORM documented in this encounter Visit Diagnoses Diagnosis Tendinopathy of right rotator cuff- Primary documented in this encounter Care Teams Textile Finisher Relationship Specialty Start Date End Date Adriana Lewis MD [address] [place] [address] PCP - General Internal Medicine 02/10/21 documented as of this encounter
--- OUTSIDE RECORDS SUMMARY | 2023-07-13 02:06 | External Medical Summary | Summary of Care ---
Author Name Unknown Organization [facility] Address [address] [place] [address] Phone [phone] Care Team Providers Care Way Inspector Name Role Phone Adriana Lewis MD Primary Care Provider Reason for Visit * Reason Comments Follow Up R shoulder Encounter Details Date Type Department Care Team Description 01/27/2023 Office Visit Orthopaedics [facility] [address] [facility] [place] [place] [address] Chadwick Horne PA-C [address] [facility] [place] [address] Tendinopathy of right rotator cuff* Allergies Active [...] disorder 08/26/2011 05/30/2017 Genetic Sleep Disorder Research Other*[id number] 12/31/2010 03/18/2016 Obesity, morbid (more than 1 [...] the patient is not interested in paying [id number] for this. Patient has pain with the [...] under 2 seconds,good sensation light touch, +5 shipping & receiving lead strength, axillary median ulnar radial nerve assess [...] called to verify the correctpatient, procedure, equipment, it application support analyst and site/side marked as required. Patient was prepped and draped in the usual sterile fashion. This chart was completed in part utilizing [employer] Speech Voice Recognition Software. Grammatical errors, random [...] Hernan Rosario DO [address] [place] [phone] 04/28/2023 Office Visit Family Medicine Adriana Lewis MD [address] [place] [address] 07/28/2023 Office Visit Cardiology Susan Hyatt PA-C [address] [place] [address] Pending Results Name Type Priority Associated Diagnoses [...] 06/16/2021, 09/30/2020, 09/02/2020 CKD PHOS USE SMARTSET 26970 05/06/202204/22, 04/25/2020, 12/30/2019, Additional history exists CKD HGB USE SMARTSET 32481 01/05/202301/05, 04/25/2020, 12/30/2019, Additional history exists GFR 03/01/2023 09/01/2022, 07/23, 08/10/2022, Additional history exists Influenza Vaccine (FLU shot) (Season Ended) 2023 HbA1c 06/09/2023 06/09/2022, 11/23/2016 DTaP,Tdap,and Td Vaccines (2 - Td or Tdap) 07/02/2023 07/02/2013 Pneumococcal Vaccine: 65+ Years Completed 12/05/2015, 06/23/2004 VITAMIN D LEVEL ONCE IN A LIFETIME-USE SMARTSET# [id number] Completed 02/10/2021, 05/29/2015, 01/22/2013, Additional history exists [...] Procedure Name Priority Date/Time Associated Diagnosis Comments SD ARTHROCENTESIS ASPIR&/INJ MAJOR JT/BURSA W/O US Routine 01/27/2023 9:19 AM EDT Tendinopathy of right rotator cuff documented in this encounter Results * SD ARTHROCENTESIS ASPIR&/INJ MAJOR JT/BURSA W/O US (01/27/2023 9:19 AM EDT) Chadwick Fang PA-C - 01/27/2023 9:19 AM EDT Chadwick [...] to verify the correct patient, procedure, equipment, it application support analyst and site/side marked as required. Patient was prepped and draped in the usual sterile fashion. Chadwick Horne PA-C PROCDOC FORM documented in this encounter Visit Diagnoses Diagnosis Tendinopathy of right rotator cuff- Primary documented in this encounter Care Teams Way Inspector Relationship Specialty Start Date End Date Adriana Lewis MD [address] [place] [address] PCP - General Internal Medicine 02/10/21 documented as of this encounter
--- OUTSIDE RECORDS SUMMARY | 2023-07-13 02:06 | External Medical Summary | Summary of Care ---
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 Machine Operator Name Role Phone Adriana Lewis MD Primary Care Provider Reason for Visit * Reason Comments Follow Up Encounter Details Date Type Department Care Team Description 01/20/2023 Office Visit Cardiology, [facility] [address] [place] [id number] Susan Hyatt PA-C [address] [place] [id number] Chronic heart failure with preserved ejection fraction (HCC)*; Chronic right-sided heart failure (HCC); Chronic diastolic (congestive) heart failure (HCC); HTN, goal below 130/80; Dyslipidemia, goal LDL below 70 Allergies Active Allergy Reactions Severity Noted Date Comments Calcitonin 02/03/2001 Itchy eyes Ezetimibe Muscle pain 01/28/2022 severe joint and muscle pains Statins Muscle pain 11/24/2010 Sulfa Antibiotics 02/03/2001 itching Sulfamethoxazole-Trimethopri m 10/28/2022 Other reaction(s): Eye swelling Tetracyclines & Related 02/03/2001 declymcin photo sensitivity Trimethoprim 10/28/2022 Other reaction(s): itchy yes, Swelling around eyes documented as of this encounter (statuses as of 01/20/2023) Medications Medication Sig Dispensed Refills Start Date [...] as of this encounter (statuses as of 01/20/2023) Active Problems Problem Noted Date Chronic heart [...] as of this encounter (statuses as of 01/20/2023) Resolved Problems Problem Noted Date Resolved Date [...] disorder 08/26/2011 05/30/2017 Genetic Sleep Disorder Research Other*[id number] 12/31/2010 03/18/2016 Obesity, morbid (more than 1 [...] as of this encounter (statuses as of 01/20/2023) Immunizations Name Administration Dates Next Due COVID-19 mRNA, LNP-s, No Pre serve, 2-Dose Series (Moderna) 06/16/2021,09/30/2020,09/02/2020 Pneumococcal Conjugate Vacc, 13 Valent (Prevnar) 12/05/2015 TDAP (age 10 and older)(Boostrix) 07/02/2013 documented as of this encounter Social History Tobacco Use Types Packs/Day Years Used Date Smoking Tobacco: Never Smokeless Tobacco: Never Tobacco Cessation:Counseling Given: Yes Alcohol Use Standard Drinks/Week Comments No 0 [...] Sign Reading Time Taken Comments Blood Pressure 126/84 01/20/2023 8:16 AM EDT Pulse 80 01/20/2023 8:16 AM EDT Temperature - - Respiratory Rate 16 01/20/2023 8:16 AM EDT Oxygen Saturation - - Inhaled Oxygen Concentration - - Weight 110.2 kg (243 lb) 01/20/2023 8:16 AM EDT Height - - Body Mass Index 45.91 07/01/2022 9:28 AM EST documented in this encounter Progress Notes * Susan Hyatt PA-C - 01/20/2023 8:30 AM EDT 01/20/2023 Cardiology F/U: Chief Complaint: Chronic diastolic heart failure; Chronic lymphedema; HTN SUBJECTIVE: Meera Clement is an 82 year old female who presents today for routine cardiology f/u. Last cardiology evaluation approximately 4 months ago with the undersigned. History includes: 1. Longstanding hypertension with hypertensive heart disease, past diastolic heart failure. 2. Mild mitral valve prolapse with moderate mitral insufficiency. 3. Pickwickian physiology with chronic right heart failure, peripheral edema, as well as chronic lymphedema. Patient presents today feeling well. No interim hospitalizations. Weight has been relatively stable at home. Blood pressure well controlled. Taking medications as prescribed. She voices no acute cardiac complaints. She is concerned with her hair thinning. No recent thyroid evaluation. No chest pain, shortness of breath, palpitations, dizziness, syncope or near syncope. No orthopnea,PND, or increased lower extremity edema. No fever, chills, cough, hematochezia, melena, or hemoptysis. Review of Systems: See HPI for pertinent positives. All others negative, other than those noted in HPI. Patient Active Problem List Diagnosis Code HTN, goal below 130/80 I10 Senile osteoporosis M81.0 Mitral valve prolapse I34.1 Dyslipidemia E78.5 Chronic right-sided heart failure (HCC) I50.812 Gastroesophageal reflux disease with esophagitis K21.00 Dependence on nocturnal oxygen therapy Z99.81 Exudative age-related macular degeneration of right eye with active choroidal neovascularization ([facility]) H35.3211 Acquired lymphedema of lower extremity I89.0 Chronic diastolic (congestive) heart failure ([facility]) I50.32 Spinal stenosis of lumbar region with neurogenic claudication M48.062 TAYLOR (generalized anxiety disorder) F41.1 Nonrheumatic mitral valve regurgitation I34.0 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 stage 3a chronic kidney disease ([facility]) I13.0, I50.812, N18.31 Sore throat J02.9 Mouth sores K13.79 Restless legs syndrome G25.81 Chronic kidney disease, stage 3a ([facility]) N18.31 Pain in joint of right shoulder M25.511 Elevated hemoglobin A1c R73.09 Prediabetes R73.03 Body mass index (BMI) of 45.0 to 49.9 in adult ([facility]) Z68.42 Carpal tunnel syndrome, bilateral G56.03 Chronic acquired lymphedema I89.0 Current mild episode of major depressive disorder without prior episode ([facility]) F32.0 Social History Tobacco Use Smoking status: Never Smokeless tobacco: Never Vaping Use Vaping Use: Never used Substance Use Topics Alcohol use: No Drug use: No Review of patient's allergies indicates: Allergen Reactions Calcitonin Itchy eyes Ezetimibe Muscle pain severe joint and muscle pains Statins Muscle pain Sulfa Antibiotics itching Sulfamethoxazole-Trimethoprim Other reaction(s): Eye swelling Tetracyclines & Related declymcin photo sensitivity Trimethoprim Other reaction(s): itchy yes, Swelling around eyes Current Outpatient Medications Medication Sig Dispense Refill ASPIRIN EC 81 MG PO TBEC 1 TABLET DAILY 34 11 FISH OIL 1000 MG PO CAPS 3 capsules daily Multiple Vitamins-Minerals (PRESERVISION AREDS) Tablet Take 1 Tablet by mouth in the morning and 1 Tablet before bedtime. 60 Tab 0 oxygen GAS Use 2 L/min(Oxygen) as directed at bedtime. 1 Each 0 docusate sodium (COLACE) 100 MG Capsule Take 1 Capsule by mouth in the morning and 1 Capsule atnoon and 1 Capsule before bedtime. Omeprazole 40 MG Oral Capsule Delayed Release (PriLOSEC) Take 1 Cap by mouth daily. 1 hour before the first meal of the day 90 Cap 3 Slow Fe 142 (45 Fe) MG Oral Tablet Extended Release (Ferrous Sulfate ER) Take 1 Tab by mouth daily. 30 Tab 11 Spironolactone 50 MG Oral Tablet (Aldactone) TAKE 1 1/2 TABS BY MOUTH ONCE DAILY IN THE PM FOR HTN TAKE 2 TABS BY MOUTH ONCE DAILY IN THE AM FOR HTN 90 Tablet 5 Potassium Chloride 40 MEQ/15ML (20%) Oral Solution Take by mouth 15 mL 5 times a day . FOR SUPPLEMENT 2200 mL 5 Artificial Tears 0.1-0.3 % Ophthalmic Solution (Dextran 70-Hypromellose) Instill into eye as needed. Fenofibrate 160 MG Oral Tablet (Lofibra) TAKE ONE TABLET BY MOUTH ONCE DAILY (CHOLESTEROL) 30 Tablet 5 Escitalopram Oxalate 10 MG Oral Tablet (Lexapro) TAKE 1 TABLET BY MOUTH ONCE DAILY *DEPRESSION*28 Tablet 5 metOLazone 5 MG Oral Tablet (Zaroxolyn) TAKE 1 TABLET BY MOUTH THREE TIMES WEEKLY ON MON,TUE AND TUE FOR CHF NOT ON CYCLE PLEASE REORDER Strength: 5 mg 12 Tablet 5 LORazepam 0.5 MG Oral Tablet (Ativan) Take 1 Tablet by mouth at bedtime. For anxiety/insomnia. Patient may decline. 30 Tablet 5 Gabapentin 100 MG Oral Capsule (Neurontin) Take 1 Capsule by mouth 2 times a day. 1st dose in morning, 2nd dose in mid-afternoon. 56 Capsule 5 guaiFENesin ER 600 MG Oral Tablet Extended Release 12 Hour (Mucinex) Take 1 Tablet by mouth 2 times a day as needed for Congestion. Take with plenty of water. Do not cut, crush or chew 40 Tablet 2 Raloxifene HCl 60 MG Oral Tablet (Evista) TAKE ONE TABLET BY MOUTH ONCE DAILY FOR OSTEOPOROSIS 28 Tablet 5 Bumetanide 2 MG Oral Tablet 1 TABLET BY MOUTH 3 TIMES DAILY (EDEMA) 84 Tablet 5 Vitamin D, Cholecalciferol, 400 units CAPS Take by mouth. Take 2 tabs by mouth once daily Potassium Chloride 40 MEQ/15ML (20%) Oral Solution Take 15mL by mouth today and tomorrow. This is in addition to regularly scheduled doses. To be used as needed when advised by Cardiology. (Patient not taking: Reported on 01/20/2023) 30 mL 5 No current facility-administered medications for this visit. OBJECTIVE/PHYSICAL EXAMINATION: BP 126/84 | Pulse 80 | Resp 16 | Wt 110.2 kg (243 lb) | BMI 45.91 kg/m | BSA 2.18 m Wt Readings from Last 3 Encounters: 01/20/23 110.2 kg (243 lb) 09/14/22 109.1 kg (240 lb 8 oz) 06/08/22 108.4 kg (239 lb) Wt Readings from Last 3 Encounters: 01/20/23 110.2 kg (243 lb) 09/14/22 109.1 kg (240 lb 8 oz) 06/08/22 108.4 kg (239 lb) General: NAD. A+Ox3. HEENT: Normocephalic. Atraumatic. PERRL. EOMI. Conjunctiva and sclera clear. NECK: No carotid bruits. No JVD. Carotid upstrokes are brisk. Heart: RRR. S1 and S2 noted without murmur, rubs, gallops. PMI non displaced. Lungs: Clear to auscultation and percussion. No wheezes, rhonchi, rales. Abdomen: Normal bowel sounds. Soft. Nontender. No masses or organomegaly. No abdominal bruits. Extremities: Chronic lymphedema changes, soft. Non pitting.. No clubbing or cyanosis. Pulses:radial=2/4, posterior tibial=2/4, dorsalis pedis = 2/4. NEURO: No focal deficits. PSYCH: Normal. Data: EKG performed May 2022: Normal sinus rhythm at 77 beats per minute with first-degree AV block Criteria for possible LVH Compared with prior EKG in February 2021, no significant changes noted. Echocardiogram report reviewed dated March 17, [address] [facility]: Normal LV chamber size with mild concentric LVH. Normal LV systolic function with ejection fraction 55-60%. No segmental left ventricular wall motion abnormalities are noted. Aortic valve sclerosis mild without significant aortic valvular stenosis. EKG performed February 2021 Sinus rhythm with marked sinus arrhythmia with 1st degree AV block Otherwise normal ECG When compared with ECG of 05-MAR-2020 09:36, Criteria for Septal infarct are no longer Present Latest Reference Range & Units 09/01/22 00:00 POTASSIUM-OUTSIDE LAB 3.5 - 5.1 MMOL/L 3.9 CREATININE-OUTSIDE LAB 0.6 - 1.2 MG/DL 1.02 EGFR-OUTSIDE LAB 50.8 GLUCOSE-OUTSIDE LAB 70 - 99 MG/DL 107 ! !: Data is abnormal ASSESSMENT: 82 year old female ICD-10-CM 1. Chronic diastolic (congestive) heart failure (HCC) I50.32 2. Chronic right-sided heart failure (HCC) I50.812 3. HTN, goal below 130/80 I10 4. Dyslipidemia, goal LDL below 70 E78.5 PLAN: Weight stable. Appears euvolemic. CHF tools discussed including daily weights, salt/sodium/fluid restriction, and use of diuretic protocol. The patient is to continue all current medications as listed above. No changes were made at today'svisit. Continue to use lymphedema pumps Update labs including renal function and potassium with high dose diuretic/supplemental potassium. Add TSH given hair thinning concerns. Patient agreeable. Orders provided to be done at nursing facility. I spent a total of 30 minutes on the date of service in preparation, delivery, and documentation ofthe care provided to Meera Clement excluding any time spent in the performance of separately billed services. The patient agrees to the above plan and will call with additional questions or concerns. ER with all emergencies advised. Follow Up: Return in about 6 months (around 07/22/2023). Susan Hyatt PA-C Department of Cardiology This chart was completed in part utilizing [employer] Voice Recognition Software. Grammatical errors, random [...] documented in this encounter Nursing Notes * Anna Sexton LPN - 01/20/2023 8:13 AM EDT Examination Room: 6 Name: Meera Clement Date of : 1940 Reason for Visit: Follow up Problems/Concerns: Sad over recent deaths at senior care Interim Hosp(s): denies Chest Pain/SOB: denies [facility] Discussed: Not applicable MyChart Discussed: ALREADY ACTIVE Patient was instructed to not get up on the exam table until directed and assisted by their provider; patient is to remain seated in the chair/ wheelchair/ exam table for fall prevention and safety reasons. Patient is aware to have assistance to step down off exam table with personnel. Patient voiced full comprehension of instructions. documented in this encounter Plan of Treatment Upcoming Encounters Date Type Specialty Care Team Description 01/27/2023 Office Visit Orthopedics [facility] Horne, [facility] [address] [place] [address] 02/17/2023 Office Visit Ophthalmology Hernan Rosario DO [address] [place] [address] 04/28/2023 Office Visit Family Medicine Adriana Lewis MD [address] [place] [address] 07/28/2023 Office Visit Cardiology Susan Hyatt PA-C [address] [place] [address] Scheduled Orders Name Type Priority Associated Diagnoses Orde r Schedule LIPID PANEL WITH DIRECT LDL IF TG IS HIGH Lab Routine Chronic right-sided heart failure (HCC) Chronic diastolic (congestive) heart failure (HCC) HTN, goal below 130/80 Dyslipidemia, goal LDL below 70 Ordered: 01/20/2023 TSH WITH FREE T4 IF INDICATED Lab Routine Chronic right-sided heart failure (HCC) Chronic diastolic (congestive) heart failure (HCC) HTN, goal below 130/80 Dyslipidemia, goal LDL below 70 Ordered: 01/20/2023 COMPREHENSIVE METABOLIC PANEL Lab Routine Chronic right-sided heart failure (HCC) Chronic diastolic (congestive) heart failure (HCC) HTN, goal below 130/80 Dyslipidemia, goal LDL below 70 Ordered: 01/20/2023 MAGNESIUM Lab Routine Chronic right-sided heart failure (HCC) Chronic diastolic (congestive) heart failure (HCC) HTN, goal below 130/80 Dyslipidemia, goal LDL below 70 Ordered: 01/20/2023 Health Maintenance Due Date Last Done Comments Zoster Vaccines (1 of 2) 1989 Albumin/Creatinine Ratio 07/17/2005 07/17/2004 DXA Scan 04/23/2017 04/23/2015, 03/22, 01/22/2011, Additional history exists Depression Screening, Annual for Pts 12 and Over 04/25/2021 04/25/2020 COVID-19 Vaccine (4 - Booster for Moderna series) 08/11/2021 06/16/2021, 09/30/2020, 09/02/2020 CKD PHOS USE SMARTSET 49982 05/06/202204/22, 04/25/2020, 12/30/2019, Additional history exists CKD HGB USE SMARTSET 33417 01/05/202301/05, 04/25/2020, 12/30/2019, Additional history exists GFR 03/01/2023 09/01/2022, 07/23, 08/10/2022, Additional history exists Influenza Vaccine (FLU shot) (Season Ended) 2023 HbA1c 06/09/2023 06/09/2022, 11/23/2016 DTaP,Tdap,and Td Vaccines (2 - Td or Tdap) 07/02/2023 07/02/2013 Pneumococcal Vaccine: 65+ Years Completed 12/05/2015, 06/23/2004 VITAMIN D LEVEL ONCE IN A LIFETIME-USE SMARTSET# [id number] Completed 02/10/2021, 05/29/2015, 01/22/2013, Additional history exists [...] of this encounter Visit Diagnoses Diagnosis Chronic heart failure with preserved ejection fraction (HCC)- Primary Chronic right-sided heart failure (HCC) Congestive heart failure, unspecified Chronic diastolic (congestive) heart failure (HCC) HTN, goal below 130/80 Unspecified essential hypertension Dyslipidemia, goal LDL below 70 Other and unspecified hyperlipidemia documented in this encounter Care Teams Runstitching Machine Operator Relationship Specialty Start Date End Date Adriana Lewis MD [address] [place] [id number] PCP - General Internal Medicine 02/10/21 documented as of this encounter"
[2023-07-13] MEDS ORDERED: PSYLLIUM or GUAR GUM FIBER POWDER PACKET PO PRN (03:18)
[2023-07-13] MEDS ORDERED: ATROPINE SULFATE 1% OP SOLN 5 ML BTL OPR PRN (03:18)
[2023-07-13 04:50] LABS: Basophils # (auto) 0.03 K/uL (0.00-0.20); Basophils % (auto) 0.4 %; Eosinophils # (auto) 0.02 K/uL (0.00-0.50); Eosinophils % (auto) 0.3 %; Hematocrit (blood only) 36.6 % (37.0-47.0); Hemoglobin 12.4 g/dl (12.0-16.0); Immature Granulocytes # (auto) 0.05 K/uL (0.01-0.20); Immature Granulocytes % (auto) 0.7 %; Lymphocytes # (auto) 0.68 K/uL (1.20-3.40); Mean Corpuscular Hemoglobin 30.8 pg (25.0-34.0); Mean Corpuscular Hgb Conc 33.9 g/dL (32.0-36.0); Mean Corpuscular Volume 90.8 fL (80.0-100.0); Monocytes # (auto) 0.63 K/uL (0.11-0.59); Monocytes % (auto) 8.3 %; Neutrophils # (auto) 6.17 K/uL (1.40-6.50); Neutrophils % (auto) 81.3 %; Platelet Count 301 K/uL (130-400); RDW Coefficient of Variation 14.8 % (11.5-14.5); RDW Standard Deviation 49.9 fL (36.4-46.3); Red Blood Count 4.03 M/uL (4.20-5.40); White Blood Count 7.58 K/ul (4.8-10.8)
[2023-07-13 05:09] LABS: BUN Creatinine Ratio 29.9 (10-20); Calcium 9.6 mg/dl (8.6-10.3); Creatinine Clr Calc Pharmacy 61.2 ml/min; Est GFR (African American) 82.2 ml/min; Est GFR (Non-African American) 70.9 ml/min; Potassium 3.4 mmol/L (3.5-5.1)
[2023-07-13] MEDS: PANTOprazole 40 MG TAB PO SCH (06:36)
--- NOTE | 2023-07-13 07:21 | XRay Report ---
XR ankle RT 2V, XR ankle RT min 3V routine, XR tibia fibula RT 2V, XR foot RT 2V CLINICAL HISTORY: Ankle trauma, no prior imaging TECHNIQUE: 3 views of the right ankle and 2 views of the right foot and 2 views of right tibia and fi bula were obtained at 1953 hours. 3 views of the right ankle were obtained at 2117 hours Comparison: None available at the time of this dictation. FINDINGS: 1952 hours: There is dislocation of the tibia and fibula with posterior displacement of the talus. There is a fra cture of the distal tibia at the level of the fibulotalar joint. Degenerative changes are seen. Soft tissue swelling is seen about the ankle. 2117 hours: Interval reduction of ankle dislocation. Fibular fracture is again seen. Medial joint space is enlarg ed measuring 9 mm. IMPRESSION: 1. In the final image, the dislocation of the tibia and fibula has been reduced. There is associated soft tissue swelling. 2. Mao B fibular fracture. ACT 112: Negative or not required by law. Electronically signed by: Pancho Membreno M.D. 07/13/2023 7:19 AM
--- NOTE | 2023-07-13 07:35 | XRay Report ---
XR hip RT min 2V, XR pelvis 1-2V routine CLINICAL HISTORY: fall possible fx on pelvis xr TECHNIQUE: 2 views of the right hip and single frontal view of the pelvis were obtained. Comparison: Comparison is made to CT abdomen pelvis 12/30/2019 FINDINGS: Irregularity of the bilateral inferior pubic rami is likely chronic. Degenerative changes are seen mo st prominently lumbar spine. Cement arthroplasty noted. No soft tissue abnormality is seen. IMPRESSION: Irregularity of the inferior bilateral pubic rami is likely chronic. No hip fracture. ACT 112: Negative or not required by law. Electronically signed by: Pancho Membreno M.D. 07/13/2023 7:33 AM
--- NOTE | 2023-07-13 08:16 | Anesthesiology Consultation ---
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 History Surgery Operation Date: 07/13/23 11:40 Proposed Procedures p Right Ankle Open Reduction Internal Fixation - Tulio Garcia DO Height/Weight Height: 5 ft Weight: 110 kg Allergies Allergy/AdvReac Type Severity Reaction Status Date / Time demeclocycline Allergy Unknown ON Verified 07/12/23 19:36 [facility] sulfamethoxazole Allergy Unknown ON Verified 07/12/23 19:36 [facility] trimethoprim Allergy Unknown ON Verified 07/12/23 19:36 [facility] ropinirole AdvReac Intermediate fluid Verified 07/12/23 19:36 retention pregabalin [From Lyrica] AdvReac Mild Unknown Verified 07/12/23 19:36 Medications Home Medications Medication Instructions Recorded Confirmed Last Taken aspirin 81 mg tablet,delayed 81 mg PO QAM 05/05/18 07/12/23 07/12/23 release omega 1-yot-bdb-fish oil 1,000 mg 1 cap PO TIDM 05/05/18 07/12/23 07/12/23 (120 mg-180 mg) capsule (Fish Oil) raloxifene 60 mg tablet 60 mg PO QAM osteoporosis 05/05/18 07/12/23 07/12/23 bumetanide 2 mg tablet 2 mg PO TIDM 12/30/19 07/12/23 07/12/23 cholecalciferol (vitamin D3) 10 20 mcg PO QAM 12/30/19 07/12/23 07/12/23 mcg (400 unit) tablet (Vitamin D3) docusate sodium 100 mg capsule 100 mg PO TIDM 12/30/19 07/12/23 07/12/23 fenofibrate 160 mg tablet 160 mg PO QDD 12/30/19 07/12/23 07/12/23 metolazone 2.5 mg tablet 2.5 mg PO 3XWK edema 12/30/19 07/12/23 07/11/23 omeprazole 40 mg capsule,delayed 40 mg PO DAILYBB 12/30/19 07/12/23 07/12/23 release dextromethorphan-guaifenesin 10 10 ml PO Q4H PRN Cough 03/16/22 07/12/23 Unknown mg-100 mg/5 mL oral liquid (Tussin DM) lorazepam 0.5 mg tablet 0.5 mg PO HS 03/16/22 07/12/23 07/11/23 potassium chloride 40 mEq/15 mL 40 meq PO ACHS 03/16/22 07/12/23 07/12/23 16:00 oral liquid psyllium husk 3 gram/5.4 gram oral 1 tbsp PO DAILY PRN Constipation 03/16/22 07/12/23 Unknown powder (Reguloid (psyllium husk)) vit C 250 mg-vit E 90 mg-zinc 40 1 tab PO BIDM 03/16/22 07/12/23 07/12/23 mg-copper 1 fy-gmbodi-uekmyh capsule (PreserVision AREDS-2) atropine 1 % eye drops 1 drp OPR TID PRN Pain 07/12/23 07/12/23 Unknown betamethasone dipropionate 0.05 % 1 applic topical BID 07/12/23 07/12/23 07/12/23 08:00 topical cream escitalopram oxalate 10 mg tablet 10 mg PO QAM 07/12/23 07/12/23 07/12/23 ferrous sulfate 142 mg (45 mg 142 mg PO QAM 07/12/23 07/12/23 07/12/23 iron) tablet,extended release gabapentin 100 mg capsule 100 mg PO BIDM 07/12/23 07/12/23 07/12/23 guaifenesin 600 mg tablet, 600 mg PO BID PRN Congestion 07/12/23 07/12/23 Unknown extended release 12 hr (Mucus Relief ER) spironolactone 50 mg tablet See Rx Instructions .Route .COMPLEX 07/12/23 07/12/23 07/12/23 Active Medications Generic Name Dose Route Start Last Admin Trade Name Freq PRN Reason Stop Dose Admin Potassium Chloride/Sodium Chloride 20 meq in 1,000 mls @ 50 mls/hr 07/13/23 00:40 07/13/23 01:40 Normal Saline W/20 Meq Kcl IV 07/13/23 20:39 50 mls/hr .Q20H ONE Administration Protocol Pantoprazole Sodium 40 mg 07/13/23 06:30 07/13/23 06:36 Pantoprazole 40 Mg Tab PO 08/12/23 06:29 40 mg DAILYBB HAN Administration Past Medical History Medical History Acute hip pain Nocturnal hypoxia Right-sided congestive heart failure Sacral insufficiency fracture Cor pulmonale (chronic) Lumbar stenosis with neurogenic claudication Chronic GERD Right heart failure Dependence on nocturnal oxygen therapy RADHA (obstructive sleep apnea) Dyslipidemia Morbid obesity with BMI of 40.0-44.9, adult Mitral valve prolapse Osteoporosis Chronic acquired lymphedema HTN (hypertension) Chronic back pain Past Family History Family History Father Family history of colon cancer Brother Family history of prostate cancer Brother Family history of coronary artery disease Sister Family history of coronary artery disease Brother Family history of diabetes mellitus Past Surgical History Surgical History Hx of cholecystectomy Status post lumbar spine surgery for decompression of spinal cord 2017 Dr. Wan Status post kyphoplasty L3, L4, L5 2018 Dr. Wan Status post tonsillectomy Status post cataract surgery Status post appendectomy Social History Smoking Status: Never smoker Do You Dip or Chew Tobacco: No Hx Alcohol Use: No Hx Substance Use: No substance use type: does not use Physical Exam Vital Signs Last Vital Signs Temp 98.8 F 07/12/23 19:34 Pulse 86 07/13/23 07:55 Resp 20 07/13/23 05:00 BP 142/78 H 07/13/23 05:00 Pulse Ox 96 07/13/23 05:00 O2 Del Method Nasal Cannula 07/13/23 05:05 O2 Flow Rate 2 07/13/23 01:30 Testing Laboratory Results 07/13/23 04:20 07/13/23 04:20 Electrocardiogram Date: 03/17/22 Sinus rhythm with 1st degree A-V block, rate 70 bpm Otherwise normal ECG When compared with ECG of 16-MAR-2022 19:33, (unconfirmed) Premature atrial complexes are no longer Present Confirmed by Ugo Padilla ([id number]) on 03/17/2022 2:09:59 PM Echocardiogram Date: 03/17/22 Normal LV chamber size with mild concentric LVH Normal LV systolic function, EF 55-60% No segmental LV wall motion abnormalities AV sclerosis mild without significant AV stenosis
[2023-07-13] MEDS: GABAPENTIN 100 MG CAP PO SCH ×2 (08:40→20:49)
[2023-07-13] MEDS: DOCUSATE SODIUM 100 MG CAP PO SCH ×4 (08:40→20:48)
[2023-07-13] MEDS: ESCITALOPRAM OXALATE 10 MG TAB PO SCH (08:40)
[2023-07-13] MEDS: RALOXIFENE HCL 60 MG TAB PO SCH (08:41)
[2023-07-13] MEDS: POTASSIUM CHLORIDE 20 MEQ/15 ML UDC PO SCH ×2 (08:41→20:50)
[2023-07-13] MEDS: CEROVITE ADV FORMULA TAB PO SCH (08:41)
[2023-07-13] MEDS ORDERED: ASPIRIN 81 MG ECTAB PO SCH (09:00)
--- NOTE | 2023-07-13 09:59 | XRay Report ---
XR chest 1V portable CLINICAL HISTORY: pre-operative assessment TECHNIQUE: Single frontal radiograph of the chest was obtained. Comparison: Comparison is made to chest radiograph 03/16/2022 FINDINGS: No lines and tubes are seen. The cardiomediastinal silhouette is normal. The lungs are clear. No evid ence of pleural effusion or pneumothorax. IMPRESSION: No acute chest disease. ACT 112: Negative or not required by law. Electronically signed by: Pancho Membreno M.D. 07/13/2023 9:58 AM
--- NOTE | 2023-07-13 15:56 | Communication Note ---
Date of Service: July 13, 2023 S: Patient seen in ED. Denies any new concerns. Reports pain is controlled, requesting info about procedure timing for ORIF, but understands that she will be going at sometime today and awaiting convo with Orth O: VS stable, on NC 2L. labs reviewed A/P: Ms. Meera Clement is an 83 year old woman with past history of alopecia areata, amaurosis fugax, RLS, right rotator cuff tendinopathy, prediabetes, CKDIIIa, hypertension, chronic right heart failure c/b peripheral edema and lymphedema , HLD, and osteoporosis admitted due to right tib/fib fracture sustained from ground-level fall. Ortho following and planning ORIF #Right tib-fib fracture #Osteoporosis -s/p reduction in ED -Orthopedics following, planning ORIF 07/13 -Plan for Vit D level in am -Continue home raloxifene -Oxycodone and tylenol prn #Mitral valve prolapse with insufficiency #Chronic Right Heart Failure #Chronic lymphedema -Resume home spironolactone 100mg qam/75mg qpm -Metolazone 5mg MWF -Bumex 2mg TID -Resume above in am (07/14) -Continue ASA #HLD -Continue fenofibrate #Nocturnal Hypoxia -Continue home O2 qhs #Depression #TAYLOR -Continue gabapentin -Continue lexapro #GERD -Continue PPI
[2023-07-13] MEDS ORDERED: ROPIVACAINE 0.5% 5 MG/ML 30 ML VIAL ONE (16:25)
[2023-07-13] MEDS ORDERED: BUPIVACAINE/EPINEPHRINE 0.5% MPF 1:200,000 30 ML VIAL ONE (16:25)
[2023-07-13] MEDS ORDERED: ONDANSETRON INJ 2 MG/ML 2 ML VIAL ONE (16:26)
[2023-07-13] MEDS ORDERED: PROPOFOL IV EMULSION 10 MG/ML 20 ML VIAL IV ONE (16:26)
[2023-07-13] MEDS ORDERED: LIDOCAINE 2% 2 ML VIAL/AMP(20MG/ML) INFIL ONE (16:26)
[2023-07-13] MEDS ORDERED: MIDAZOLAM HCL 1 MG/ML 2ML VIAL ONE (16:26)
[2023-07-13] MEDS ORDERED: fentaNYL citrate PF 100 MCG/2 ML VIAL ONE ×3 (16:26→18:45)
[2023-07-13] MEDS ORDERED: ePHEDrine sulfate 50 MG/ML AMP IV PRN (16:38)
[2023-07-13] MEDS ORDERED: ONDANSETRON INJ 2 MG/ML 2 ML VIAL IV PRN ×2 (16:38→19:06)
[2023-07-13] MEDS ORDERED: fentaNYL citrate PF 100 MCG/2 ML VIAL IV PRN (16:38)
[2023-07-13] MEDS ORDERED: ATROPINE SULFATE 0.1 MG/ML 10ML SYR IV PRN (16:38)
--- NOTE | 2023-07-13 17:16 | History & Physical Bridge Note ---
Date of Service July 13, 2023 History & Physical Bridge Note I have examined the patient, reviewed the History & Physical and in the interval since the performance of the History & Physical I have noted the following changes of clinical significance: no changes noted met with the patient. I had a lengthy discussion with her regarding risk benefits potential complications of right ankle open reduction internal fixation with syndesmotic repair. These include but are not limited to infection, neurovascular injury, DVT, nonunion, malunion and need for future surgery. After reviewing these she elected proceed with surgical intervention and written consent was obtained
--- NOTE | 2023-07-13 17:18 | Orthopedic Consultation ---
Date of Consultation July 13, 2023 Assessment & Plan (1) Closed fracture dislocation of right ankle: Nonweightbearing right lower extremity Ice/elevate Pain control Medical management Plan for or today for right ankle open reduction internal fixation with syndesmotic repair History of Present Illness Reason for Consultation: Right ankle fracture dislocation Attending Physician: Tracie Urbina MD History of Present Illness 83-year-old female presenting after sustaining a twisting and falling injury to her right ankle. This resulted in a fracture dislocation of her right ankle. In the emergency department she underwent closed reduction. Patient was admitted to medical service and orthopedics was consulted for operative management Allergies Allergy/AdvReac Type Severity Reaction Status Date / Time demeclocycline Allergy Unknown ON Verified 07/12/23 19:36 [facility] sulfamethoxazole Allergy Unknown ON Verified 07/12/23 19:36 [facility] trimethoprim Allergy Unknown ON Verified 07/12/23 19:36 [facility] ropinirole AdvReac Intermediate fluid Verified 07/12/23 19:36 retention pregabalin [From Lyrica] AdvReac Mild Unknown Verified 07/12/23 19:36 Home Medications Medication Instructions Recorded Confirmed Type aspirin 81 mg tablet,delayed 81 mg PO QAM 05/05/18 07/12/23 History release omega 0-tsd-bos-fish oil 1,000 mg 1 cap PO TIDM 05/05/18 07/12/23 History (120 mg-180 mg) capsule (Fish Oil) raloxifene 60 mg tablet 60 mg PO QAM osteoporosis 05/05/18 07/12/23 History bumetanide 2 mg tablet 2 mg PO TIDM 12/30/19 07/12/23 History cholecalciferol (vitamin D3) 10 20 mcg PO QAM 12/30/19 07/12/23 History mcg (400 unit) tablet (Vitamin D3) docusate sodium 100 mg capsule 100 mg PO TIDM 12/30/19 07/12/23 History fenofibrate 160 mg tablet 160 mg PO QDD 12/30/19 07/12/23 History metolazone 2.5 mg tablet 2.5 mg PO 3XWK edema 12/30/19 07/12/23 History omeprazole 40 mg capsule,delayed 40 mg PO DAILYBB 12/30/19 07/12/23 History release dextromethorphan-guaifenesin 10 10 ml PO Q4H PRN Cough 03/16/22 07/12/23 History mg-100 mg/5 mL oral liquid (Tussin DM) lorazepam 0.5 mg tablet 0.5 mg PO HS 03/16/22 07/12/23 History potassium chloride 40 mEq/15 mL 40 meq PO ACHS 03/16/22 07/12/23 History oral liquid psyllium husk 3 gram/5.4 gram oral 1 tbsp PO DAILY PRN Constipation 03/16/22 07/12/23 History powder (Reguloid (psyllium husk)) vit C 250 mg-vit E 90 mg-zinc 40 1 tab PO BIDM 03/16/22 07/12/23 History mg-copper 1 ba-tosaiq-iumumq capsule (PreserVision AREDS-2) atropine 1 % eye drops 1 drp OPR TID PRN Pain 07/12/23 07/12/23 History betamethasone dipropionate 0.05 % 1 applic topical BID 07/12/23 07/12/23 History topical cream escitalopram oxalate 10 mg tablet 10 mg PO QAM 07/12/23 07/12/23 History ferrous sulfate 142 mg (45 mg 142 mg PO QAM 07/12/23 07/12/23 History iron) tablet,extended release gabapentin 100 mg capsule 100 mg PO BIDM 07/12/23 07/12/23 History guaifenesin 600 mg tablet, 600 mg PO BID PRN Congestion 07/12/23 07/12/23 History extended release 12 hr (Mucus Relief ER) spironolactone 50 mg tablet See Rx Instructions .Route .COMPLEX 07/12/23 07/12/23 History Patient History Medical History Acute hip pain Nocturnal hypoxia Right-sided congestive heart failure Sacral insufficiency fracture Cor pulmonale (chronic) Lumbar stenosis with neurogenic claudication Chronic GERD Right heart failure Dependence on nocturnal oxygen therapy RADHA (obstructive sleep apnea) Dyslipidemia Morbid obesity with BMI of 40.0-44.9, adult Mitral valve prolapse Osteoporosis Chronic acquired lymphedema HTN (hypertension) Chronic back pain Surgical History Hx of cholecystectomy Status post lumbar spine surgery for decompression of spinal cord 2017 Dr. Wan Status post kyphoplasty L3, L4, L5 2017 Dr. 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: No Beliefs That Will Affect Care: None marital status: Single Current Living Situation: Personal Care Facility Current Living Situation Comment: [facility]isted [facility] Other Information That Helps Us Care for You: No Feels Safe at Home: Yes Safety Concerns: Feels Safe At This Time Assistive Devices: Oxygen - at Night, Walker and Wheelchair Physical Exam Constitutional: No acute distress, alert and oriented person place and time Musculoskeletal: Right lower extremity -In splint -Sensation intact to light touch distall y over toes -Wiggles toes -Brisk capillary refill of toes Results & Data Vital Signs (Past 12 Hours) Vital Signs Temp Pulse Pulse Pulse Resp BP Pulse Ox 07/13/23 16:25 38 C H 92 H 18 132/59 L 92 07/13/23 15:53 88 18 140/76 96 07/13/23 15:30 80 07/13/23 11:38 07/13/23 11:38 36.5 C 78 21 115/67 94 07/13/23 09:51 94 07/13/23 09:50 88 L 07/13/23 07:55 86 O2 Del Method O2 Flow Rate 07/13/23 16:25 Room Air 07/13/23 15:53 Room Air 07/13/23 15:30 07/13/23 11:38 Nasal Cannula 2 07/13/23 11:38 Nasal Cannula 2 07/13/23 09:51 Nasal Cannula 2 07/13/23 09:50 Room Air 07/13/23 07:55 Diagnostic Findings Postreduction radiographs of the right ankle demonstrate a displaced right distal fibula fracture with associated medial clear space widening (1) Closed fracture dislocation of right ankle Encounter type: initial encounter Qualified Code(s): S82.891A - Other fracture of right lower leg, initial encounter for closed fracture
[2023-07-13] MEDS ORDERED: ceFAZolin 330 MG/ML 1 GM VIAL ONE (18:04)
[2023-07-13] MEDS ORDERED: PHENYLEPHRINE HCL 10 MG/ML VIAL ONE (18:04)
[2023-07-13] MEDS ORDERED: ceFAZolin 2000MG 2,000 MG/15 ML SYR IV ONE (18:15)
--- NOTE | 2023-07-13 19:02 | Operative Report ---
Post Operative Report Pre & Post Diagnosis Operation Date: 07/13/23 11:40 Pre-Op Diagnosis: Closed fracture dislocation of right ankle Post-Op Diagnosis: Closed fracture dislocation of right ankle I identified the patient and participated in the time-out.: Yes Procedure Operation Date: 07/13/23 11:40 Actual Procedures p Right Ankle Open Reduction Internal Fixation with Syndesmosis Repair(Right) - Tulio Garcia DO Surgeon Tulio Garcia DO Pewter Finisher none Estimated Blood Loss 20 Findings Consistent with Post-Op Diagnosis see dictation Specimens none Complications none Indications 83-year-old female presenting after twisting her ankle and sustaining a ground- level fall with a comminuted right distal fibula fracture dislocation. Patient underwent closed reduction in the emergency department. She was admitted to medical service and orthopedics was consulted for operative management. I had a lengthy discussion with the patient regarding risk benefits potential complications of right ankle open reduction internal fixation with syndesmotic repair. After reviewing these she elected proceed with surgical intervention and written consent was obtained Description of Procedure Implants: Synthes 2.7 mm / 3.5 mm LCP lateral distal fibula plate 5 hole right, one 3.5 mm cortical screw, three 3.5 mm locking screws, five 2.7 mm locking screws, one Arthrex tight rope Procedure: Patient was appropriately marked and identified in the preoperative area. She received regional anesthesia. She was then taken back to the operative suite where she received antibiotics per protocol. She was positioned supine with a nonsterile right thigh tourniquet. Bone foam was then placed under the right lower extremity. The patient was then prepped and draped in the standard orthopedic fashion a timeout was then performed. Esmarch was then used to exsanguinate the right lower extremity and then the tourniquet was inflated to 250 mmHg. 7 cm incision was then made overlying the distal fibula. Patient was noted to have a venous tourniquet so therefore the tourniquet was then reinflated to 300 mmHg. Dissection was carried out down through the subcutaneous tissue to the fracture site. Fracture hematoma was then debrided and retractors were then placed allowing visualization of the fracture. There is noted to be comminution of the distal fibula and approximately 3 pieces. A 5 hole distal fibular locking plate was then selected and provisionally pinned into position. Position was assessed on AP and lateral fluoroscopy. One 2.5 mm cortical screw was then drilled and placed to compress the plate down to bone. Patient was noted to have extremely soft osteoporotic bone. 3 additional cortical locking screws were then drilled and placed in the fibula shaft. Attention was then turned to the 5 distal locking screws which were then drilled and placed. Radiographs were obtained demonstrating successful reduction of the fracture and position of the plate. Stress radiograph was obtained demonstrating medial clear space widening. Decision was then made to place an Arthrex tight rope. Drill was then used to drill through the lateral aspect of the plate Quadra cortically to the medial side of the tibia. Arthrex tight rope was then placed and then tensioned down to the plate. This close down the medial clear space nicely. Final radiographs were obtained. Wounds were then copiously irrigated using normal saline solution. The tourniquet was then deflated. 2-0 Vicryl suture was used to close the subcutaneous tissue followed by running 3-0 nylon for the skin. Sterile dressing of Xeroform 4 x 4 gauze ABD and web roll was then applied. The patient was then placed in a well-padded 3 sided splint with mold placed. Patient tolerated procedure well and was taken to recovery room in hemodynamically stable condition. Due to the patient's large size and morbid obesity increased time was required for patient positioning, draping, soft tissue management as well as the pr ocedure itself leading to an increase 25% operative time. I attest to the content of the Intraoperative Record and any orders documented therein. Any exceptions are noted below.
--- NOTE | 2023-07-13 19:05 | Post Operative Brief Note ---
Immediate Post Op Note v1 Date of Surgery July 13, 2023 Pre & Post Diagnosis Operation Date: 07/13/23 11:40 Pre-Op Diagnosis: Closed fracture dislocation of right ankle Post-Op Diagnosis: Closed fracture dislocation of right ankle I identified the patient and participated in the time-out.: Yes Procedure Operation Date: 07/13/23 11:40 Actual Procedures p Right Ankle Open Reduction Internal Fixation with Syndesmosis Repair(Right) - Tulio Garcia DO Surgeon Tulio Garcia, Laydown Machine Operator none Estimated Blood Loss 20 Findings Consistent with Post-Op Diagnosis see dictation Complications none
[2023-07-13] MEDS ORDERED: NALOXONE HCL 0.4 MG/1 ML VIAL/CARP IV PRN (19:06)
[2023-07-13] MEDS ORDERED: METOCLOPRAMIDE HCL INJ 5 MG/ML 2 ML VIAL IV PRN (19:06)
[2023-07-13] MEDS ORDERED: bisacodyL 10 MG SUPP PR PRN (19:06)
[2023-07-13] MEDS ORDERED: MAGNESIUM HYDROXIDE SUSP 30 ML UDC PO PRN (19:06)
--- NOTE | 2023-07-13 19:12 | Fluoroscopy Report ---
INTRAOPERATIVE RADIOGRAPHS CLINICAL HISTORY: Open reduction and internal fixation of the right fibula. Fluoro time: 31 seconds Ka,r: 1.57 mGy FINDINGS: 4 spot fluoroscopic views of the right ankle are correlated with radiographs dated 07/12/20 23. There has been buttress plate fixation of a distal fibular fracture with muslim of near-renee omic alignment. Numerous cortical lag screw transfix the plate. An additional small plate is seen luis manuel ng the medial cortex of the distal tibial metaphysis. Overlying soft tissue edema is observed. The or thopedic hardware appears intact. IMPRESSION: Intraoperative images from open reduction and internal fixation of a right fibular fractu re as above. Electronically signed by: Felipe Perera M.D. 07/13/2023 7:11 PM
[2023-07-13] MEDS ORDERED: SODIUM CHLORIDE 0.9% 1,000 ML IV SCH (19:15)
--- NOTE | 2023-07-13 20:13 | Anesthesiology Progress Note ---
Date of Service July 13, 2023 Anesthesia Post Procedure Vital Signs Vital Signs: Temp Pulse Pulse Pulse Pulse Resp BP 07/13/23 20:00 98.1 F 84 16 07/13/23 19:40 88 17 07/13/23 19:30 99.0 F 89 15 07/13/23 19:20 86 16 07/13/23 19:10 93 H 19 07/13/23 19:04 97.2 F L 89 14 07/13/23 16:25 100.4 F H 92 H 18 07/13/23 15:53 88 18 07/13/23 15:30 80 07/13/23 11:38 07/13/23 11:38 97.7 F 78 21 07/13/23 09:51 07/13/23 09:50 07/13/23 07:55 86 07/13/23 05:05 07/13/23 05:00 92 H 20 142/78 H 07/13/23 04:30 120/64 07/13/23 04:00 132/77 07/13/23 03:30 133/78 07/13/23 03:00 150/87 H 07/13/23 02:30 148/86 H 07/13/23 02:00 137/77 07/13/23 01:30 89 16 128/77 07/13/23 01:15 85 18 07/13/23 01:00 137/80 07/13/23 01:00 87 15 07/13/23 00:45 85 18 07/13/23 00:30 129/71 07/13/23 00:30 89 20 07/13/23 00:15 88 16 07/13/23 00:00 133/77 07/13/23 00:00 90 19 07/12/23 23:45 89 18 07/12/23 23:42 88 07/12/23 23:30 89 18 07/12/23 23:30 142/79 H 07/12/23 23:15 89 18 07/12/23 23:00 93 H 24 07/12/23 23:00 146/78 H 07/12/23 23:00 90 18 07/12/23 22:45 95 H 15 07/12/23 22:31 137/95 07/12/23 22:31 108 H 23 07/12/23 22:30 15 07/12/23 22:15 94 H 17 07/12/23 22:00 132/77 07/12/23 22:00 89 19 07/12/23 21:45 90 18 07/12/23 21:30 91 H 16 07/12/23 21:30 132/76 07/12/23 21:15 91 H 16 07/12/23 21:12 90 20 07/12/23 21:00 100 H 21 07/12/23 21:00 141/78 H 07/12/23 20:45 98 H 18 07/12/23 20:30 172/99 H 07/12/23 20:30 99 H 24 07/12/23 20:21 07/12/23 20:15 96 H 20 BP Pulse Ox O2 Del Method O2 Flow Rate 07/13/23 20:00 108/65 96 Nasal Cannula 2.0 07/13/23 19:40 132/64 97 Nasal Cannula 3 07/13/23 19:30 121/67 96 Nasal Cannula 3 07/13/23 19:20 117/63 98 Oxymask 6 07/13/23 19:10 150/87 H 97 Oxymask 10 07/13/23 19:04 156/94 H 96 Oxymask 10 07/13/23 16:25 132/59 L 92 Room Air 07/13/23 15:53 140/76 96 Room Air 07/13/23 15:30 07/13/23 11:38 Nasal Cannula 2 07/13/23 11:38 115/67 94 Nasal Cannula 2 07/13/23 09:51 94 Nasal Cannula 2 07/13/23 09:50 88 L Room Air 07/13/23 07:55 07/13/23 05:05 Nasal Cannula 07/13/23 05:00 96 07/13/23 04:30 07/13/23 04:00 07/13/23 03:30 07/13/23 03:00 07/13/23 02:30 07/13/23 02:00 07/13/23 01:30 98 Nasal Cannula 2 07/13/23 01:15 98 07/13/23 01:00 07/13/23 01:00 99 07/13/23 00:45 100 07/13/23 00:30 07/13/23 00:30 98 07/13/23 00:15 98 07/13/23 00:00 07/13/23 00:00 98 07/12/23 23:45 98 07/12/23 23:42 07/12/23 23:30 98 07/12/23 23:30 07/12/23 23:15 100 07/12/23 23:00 99 07/12/23 23:00 07/12/23 23:00 146/78 H 100 Nasal Cannula 3 07/12/23 22:45 99 07/12/23 22:31 07/12/23 22:31 98 07/12/23 22:30 99 07/12/23 22:15 98 07/12/23 22:00 07/12/23 22:00 97 07/12/23 21:45 96 07/12/23 21:30 95 07/12/23 21:30 07/12/23 21:15 96 07/12/23 21:12 132/76 96 Nasal Cannula 3 07/12/23 21:00 94 07/12/23 21:00 07/12/23 20:45 92 07/12/23 20:30 07/12/23 20:30 94 07/12/23 20:21 92 Room Air 07/12/23 20:15 93 Pain Intensity Right Ankle: Pain Intensity: 4 Transfer of Care Handoff Completed per policy Notes Mental Status: alert / awake / arousable and participated in evaluation Patient Amnestic to Procedure: Yes Nausea / Vomiting: adequately controlled Pain: adequately controlled Airway Patency, RR, SpO2: stable & adequate BP & HR: stable & adequate Hydration State: stable & adequate Anesthetic Complications: no major complications apparent and Pt Satisfied with anesthetic care
[2023-07-13] MEDS: SENNA 8.6 MG TAB PO SCH (20:48)
[2023-07-13] MEDS: FENOFIBRATE NANOCRYSTALLIZED 145 MG TABLET PO SCH (20:50)
[2023-07-13 22:03] LABS: ANTI-Xa, LMWH(Low Molecular Wt < 0.10 IU/ML (< 0.10); Fibrinogen 341 mg/dl (184-400); Partial Thromboplastin Time 28.7 Seconds (21.0-31.0)
[2023-07-14] MEDS: ceFAZolin 2000MG 2,000 MG/15 ML SYR IV SCH ×2 (01:07→09:31)
[2023-07-14] MEDS: oxyCODONE HCL IR 5 MG TAB (IMMEDIATE RELEASE) PO PRN ×2 (04:08→10:31)
[2023-07-14] MEDS: PANTOprazole 40 MG TAB PO SCH (05:33)
--- NOTE | 2023-07-14 07:10 | Electrocardiogram Report ---
Test Reason : Blood Pressure : / mmHG Vent. Rate : 094 BPM Atrial Rate : 094 BPM P-R Int : 244 ms QRS Dur : 094 ms QT Int : 354 ms P-R-T Axes : 036 -26 030 degrees QTc Int : 442 ms Sinus rhythm with 1st degree A-V block Left ventricular hypertrophy with repolarization abnormality ( R in aVL ) Abnormal ECG When compared with ECG of 17-MAR-2022 04:04, ST more depressed in lateral leads Confirmed by Brenden Tubbs ([id number]) on 07/14/2023 7:10:12 AM Referred By: REFERRED SELF Confirmed By:Brenden Tubbs
--- NOTE | 2023-07-14 07:17 | Hospitalist Progress Note ---
Date of Service July 14, 2023 Assessment & Plan (1) Closed fracture dislocation of right ankle: Plan: Ms. Meera Clement is an 83 year old woman with past history of alopecia areata, amaurosis fugax, RLS, right rotator cuff tendinopathy, prediabetes, CKDIIIa, hypertension, chronic right heart failure c/b peripheral edema and lymphedema , HLD, and osteoporosis admitted due to right tib/fib fracture sustained from ground-level fall. Patient is now POD 1 of Right Ankle Open Reduction Internal Fixation with Syndesmosis Repair(Right) #Acute blood loss anemia, 2/2 post-op losses -Hgb 12.4 prior, now 11.2 -Trend cbc, transfuse <7.0 or symptomatic #Right tib-fib fracture #Osteoporosis -s/p reduction in ED -Orthopedics following, planning ORIF 07/13 -Plan for Vit D level in am -Continue home raloxifene -Oxycodone and tylenol prn #Mitral valve prolapse with insufficiency #Chronic Right Heart Failure #Chronic lymphedema -Hold home spironolactone 100mg qam/75mg qpm (relatively hypotensive) -Resume Metolazone 2.5mg MWF -Resume Bumex 2mg TID -Continue ASA #HLD -Continue fenofibrate #Nocturnal Hypoxia -Continue home O2 qhs #Depression #TAYLOR -Continue gabapentin -Continue lexapro #GERD -Continue PPI DVT SCDs Admission and Anticipated Discharge Date Admission Date: July 13, 2023 Subjective Denies any new concerns, states pain is controlled at this time Reports feeling a bit agitated with the bedside controller and being admitted at this time, frustrated over situation Review of Systems Review of Systems: All systems reviewed & are unremarkable except as noted in Subjective Physical Exam Constitutional: WD/WN, vitals as above Respiratory: normal respiratory effort, lungs clear to auscultation Cardiovascular: RRR, no murmur, no edema Gastrointestinal (Abdomen): normal bowel sounds, soft, nontender, no hepatosplenomegaly Results & Data Results & Data Vital Signs (Past 12 Hours) Vital Signs Temp Pulse Pulse Resp BP Pulse Ox O2 Del Method 07/14/23 03:57 37.2 C 89 18 125/69 95 Nasal Cannula 07/13/23 23:00 36.6 C 84 16 126/77 98 Room Air 07/13/23 22:00 36.5 C 90 18 113/69 100 Nasal Cannula 07/13/23 21:00 36.7 C 89 16 111/57 L 96 Nasal Cannula 07/13/23 20:30 86 16 132/63 96 Nasal Cannula 07/13/23 20:00 36.7 C 84 16 108/65 96 Nasal Cannula 07/13/23 19:45 Nasal Cannula 07/13/23 19:40 88 17 132/64 97 Nasal Cannula 07/13/23 19:30 37.2 C 89 15 121/67 96 Nasal Cannula 07/13/23 19:20 86 16 117/63 98 Oxymask O2 Flow Rate 07/14/23 03:57 2.0 07/13/23 23:00 07/13/23 22:00 2.0 07/13/23 21:00 2.0 07/13/23 20:30 2.0 07/13/23 20:00 2.0 07/13/23 19:45 2 07/13/23 19:40 3 07/13/23 19:30 3 07/13/23 19:20 6 Laboratory Results Short CBC 07/14/23 Range/Units 06:50 WBC 6.62 (4.8-10.8) K/ul Hgb 11.2 L (12.0-16.0) g/dl Hct 34.5 L (37.0-47.0) % Plt Count 265 (130-400) K/uL BMP 07/14/23 06:50 Sodium 139 Potassium 3.9 Chloride 106 Carbon Dioxide 28 BUN 13 Creatinine 0.65 Glucose 119 H Calcium 9.1 Medications Administered Home Medications Medication Instructions Recorded Confirmed Last Taken aspirin 81 mg tablet,delayed 81 mg PO QAM 05/05/18 07/12/23 07/12/23 release omega 2-lqm-ghv-fish oil 1,000 mg 1 cap PO TIDM 05/05/18 07/12/23 07/12/23 (120 mg-180 mg) capsule (Fish Oil) raloxifene 60 mg tablet 60 mg PO QAM osteoporosis 05/05/18 07/12/23 07/12/23 bumetanide 2 mg tablet 2 mg PO TIDM 12/30/19 07/12/23 07/12/23 cholecalciferol (vitamin D3) 10 20 mcg PO QAM 0507/12/23 07/12/23 mcg (400 unit) tablet (Vitamin D3) docusate sodium 100 mg capsule 100 mg PO TIDM 12/30/19 07/12/23 07/12/23 fenofibrate 160 mg tablet 160 mg PO QDD 12/30/19 07/12/23 07/12/23 metolazone 2.5 mg tablet 2.5 mg PO 3XWK edema 12/30/19 07/12/23 07/11/23 omeprazole 40 mg capsule,delayed 40 mg PO DAILYBB 12/30/19 07/12/23 07/12/23 release dextromethorphan-guaifenesin 10 10 ml PO Q4H PRN Cough 03/16/22 07/12/23 Unknown mg-100 mg/5 mL oral liquid (Tussin DM) lorazepam 0.5 mg tablet 0.5 mg PO HS 03/16/22 07/12/23 07/11/23 potassium chloride 40 mEq/15 mL 40 meq PO ACHS 03/16/22 07/12/23 07/12/23 16:00 oral liquid psyllium husk 3 gram/5.4 gram oral 1 tbsp PO DAILY PRN Constipation 03/16/22 1 09/11/22 Unknown powder (Reguloid (psyllium husk)) vit C 250 mg-vit E 90 mg-zinc 40 1 tab PO BIDM 03/16/22 07/12/23 07/12/23 mg-copper 1 qb-cnazzd-ttiisv capsule (PreserVision AREDS-2) atropine 1 % eye drops 1 drp OPR TID PRN Pain 07/12/23 07/12/23 Unknown betamethasone dipropionate 0.05 % 1 applic topical BID 07/12/23 07/12/23 07/12/23 08:00 topical cream escitalopram oxalate 10 mg tablet 10 mg PO QAM 07/12/23 07/12/23 07/12/23 ferrous sulfate 142 mg (45 mg 142 mg PO QAM 07/12/23 07/12/23 07/12/23 iron) tablet,extended release gabapentin 100 mg capsule 100 mg PO BIDM 07/12/23 07/12/23 07/12/23 guaifenesin 600 mg tablet, 600 mg PO BID PRN Congestion 07/12/23 07/12/23 Unknown extended release 12 hr (Mucus Relief ER) spironolactone 50 mg tablet See Rx Instructions .Route .COMPLEX 07/12/23 07/12/23 07/12/23 Active Medications Generic Name Dose Route Start Last Admin Trade Name Freq PRN Reason Stop Dose Admin Docusate Sodium 100 mg 07/13/23 08:00 07/13/23 20:48 Docusate Sodium 100 Mg Cap PO 08/12/23 07:59 Not Given TIDM HAN Docusate Sodium 100 mg 07/13/23 21:00 07/13/23 20:48 Docusate Sodium 100 Mg Cap PO 08/12/23 20:59 Not Given BID HAN Escitalopram Oxalate 10 mg 07/13/23 09:00 07/13/23 08:40 Escitalopram Oxalate 10 Mg Tab PO 08/12/23 08:59 10 mg QAM HAN Administration Fenofibrate 145 mg 07/13/23 16:30 07/13/23 20:50 Fenofibrate Nanocrystallized 145 Mg Tablet PO 08/12/23 16:29 145 mg QDD HAN Administration Gabapentin 100 mg 07/13/23 08:00 07/13/23 20:49 Gabapentin 100 Mg Cap PO 08/12/23 07:59 100 mg BIDM HAN Administration Cefazolin Sodium 2,000 mg in 15 mls @ 3.75 mls/min 07/14/23 01:15 07/14/23 01:07 Ancef 2000mg IV 07/14/23 09:18 3.75 mls/min Q8H HAN Administration Protocol Morphine Sulfate 4 mg 07/13/23 00:40 07/13/23 09:30 Morphine Sulfate 4 Mg/Ml 1 Ml Carp\Vial IV 07/27/23 00:39 4 mg Q4H PRN Administration Pain Multivitamins/Minerals 1 tab 07/13/23 09:00 07/13/23 08:41 Cerovite Adv Formula Tab PO 08/12/23 08:59 1 tab DAILY HAN Administration Oxycodone HCl 5 mg 07/13/23 00:40 07/14/23 04:08 Oxycodone Hcl Ir 5 Mg Tab (Immediate Release) PO 07/27/23 00:39 5 mg Q4H PRN Administration Pain Pantoprazole Sodium 40 mg 07/13/23 06:30 07/14/23 05:33 Pantoprazole 40 Mg Tab PO 08/12/23 06:29 40 mg DAILYBB HAN Administration Potassium Chloride 40 meq 07/13/23 09:00 07/13/23 20:50 Potassium Chloride 20 Meq/15 Ml Udc PO 08/12/23 08:59 40 meq BID HAN Administration Raloxifene HCl 60 mg 07/13/23 09:00 07/13/23 08:41 Raloxifene Hcl 60 Mg Tab PO 08/12/23 08:59 60 mg QAM HAN Administration Sennosides 17.2 mg 07/13/23 21:00 07/13/23 20:48 Senna 8.6 Mg Tab PO 08/12/23 20:59 Not Given HS HAN (1) Closed fracture dislocation of right ankle Encounter type: initial encounter Qualified Code(s): S82.891A - Other fracture of right lower leg, initial encounter for closed fracture
[2023-07-14 07:37] LABS: Hematocrit (blood only) 34.5 % (37.0-47.0); Hemoglobin 11.2 g/dl (12.0-16.0); Mean Corpuscular Hemoglobin 30.4 pg (25.0-34.0); Mean Corpuscular Hgb Conc 32.5 g/dL (32.0-36.0); Mean Corpuscular Volume 93.5 fL (80.0-100.0); Mean Platelet Volume 10.1 fL (9.4-12.4); Platelet Count 265 K/uL (130-400); RDW Coefficient of Variation 15.2 % (11.5-14.5); RDW Standard Deviation 52.3 fL (36.4-46.3); Red Blood Count 3.69 M/uL (4.20-5.40); White Blood Count 6.62 K/ul (4.8-10.8)
[2023-07-14 07:56] LABS: Calcium 9.1 mg/dl (8.6-10.3); Creatinine Clr Calc Pharmacy 72.5 ml/min; Est GFR (African American) 94.5 ml/min; Est GFR (Non-African American) 81.5 ml/min; Magnesium 2.1 mg/dl (1.7-2.4); Phosphorus 2.2 mg/dl (2.5-4.9); Potassium 3.9 mmol/L (3.5-5.1)
[2023-07-14] MEDS ORDERED: MULTIVITAMIN TAB PO SCH (09:00)
[2023-07-14] MEDS: GABAPENTIN 100 MG CAP PO SCH ×2 (09:09→16:47)
[2023-07-14] MEDS: CEROVITE ADV FORMULA TAB PO SCH (09:09)
[2023-07-14] MEDS: APIXABAN 2.5 MG TAB PO SCH ×2 (09:09→19:52)
[2023-07-14] MEDS: ESCITALOPRAM OXALATE 10 MG TAB PO SCH (09:09)
[2023-07-14] MEDS: BUMETANIDE 1 MG TAB PO SCH ×3 (09:09→16:46)
[2023-07-14] MEDS: DOCUSATE SODIUM 100 MG CAP PO SCH ×3 (09:09→19:54)
[2023-07-14] MEDS: RALOXIFENE HCL 60 MG TAB PO SCH (09:10)
[2023-07-14] MEDS: POTASSIUM CHLORIDE 20 MEQ/15 ML UDC PO SCH ×2 (09:10→19:51)
[2023-07-14] MEDS ORDERED: POT PHOSPHATE MONOBASIC W/ SOD TAB PO STA (13:45)
[2023-07-14] MEDS: FENOFIBRATE NANOCRYSTALLIZED 145 MG TABLET PO SCH (16:45)
[2023-07-14] MEDS: ACETAMINOPHEN 325 MG TAB PO PRN (18:41)
[2023-07-14] MEDS: SENNA 8.6 MG TAB PO SCH (19:51)
[2023-07-15] MEDS: BUMETANIDE 1 MG TAB PO SCH ×3 (06:00→16:36)
[2023-07-15] MEDS: metOLazone 2.5 MG TABLET PO SCH (06:00)
[2023-07-15] MEDS: PANTOprazole 40 MG TAB PO SCH (06:00)
[2023-07-15 07:00] LABS: Hematocrit (blood only) 32.4 % (37.0-47.0); Hemoglobin 10.8 g/dl (12.0-16.0); Mean Corpuscular Hemoglobin 30.5 pg (25.0-34.0); Mean Corpuscular Hgb Conc 33.3 g/dL (32.0-36.0); Mean Corpuscular Volume 91.5 fL (80.0-100.0); Mean Platelet Volume 9.6 fL (9.4-12.4); Platelet Count 238 K/uL (130-400); RDW Coefficient of Variation 14.6 % (11.5-14.5); RDW Standard Deviation 49.4 fL (36.4-46.3); Red Blood Count 3.54 M/uL (4.20-5.40); White Blood Count 6.22 K/ul (4.8-10.8)
[2023-07-15 07:22] LABS: BUN Creatinine Ratio 22.6 (10-20); Calcium 8.7 mg/dl (8.6-10.3); Est GFR (Non-African American) 82.8 ml/min; Magnesium 1.9 mg/dl (1.7-2.4); Phosphorus 2.3 mg/dl (2.5-4.9); Potassium 3.4 mmol/L (3.5-5.1)
--- NOTE | 2023-07-15 07:24 | Hospitalist Progress Note ---
Date of Service July 15, 2023 Assessment & Plan (1) Closed fracture dislocation of right ankle: Plan: Ms. Meera Clement is an 83 year old woman with past history of alopecia areata, amaurosis fugax, RLS, right rotator cuff tendinopathy, prediabetes, CKDIIIa, hypertension, chronic right heart failure c/b peripheral edema and lymphedema , HLD, and osteoporosis admitted due to right tib/fib fracture sustained from ground-level fall. Patient is now POD 1 of Right Ankle Open Reduction Internal Fixation with Syndesmosis Repair(Right) Patient is recovering well. Plans for discharge come Tuesday to [facility]. #Acute blood loss anemia, 2/2 post-op losses -Hgb 12.4 prior, now 11.2 -Trend cbc, transfuse <7.0 or symptomatic #Right tib-fib fracture #Osteoporosis -s/p reduction in ED -Orthopedics following, planning ORIF 07/13 -Vit D: 33 -Continue home raloxifene -Oxycodone and tylenol prn -Start VitD/Ca supplementation #Hypokalemia #Hypophosphatemia -Replace lytes prn #Mitral valve prolapse with insufficiency #Chronic Right Heart Failure #Chronic lymphedema -Hold home spironolactone 100mg qam/75mg qpm (relatively hypotensive) -Continue Metolazone 2.5mg MWF -Continue Bumex 2mg TID -Continue ASA #HLD -Continue fenofibrate #Nocturnal Hypoxia -Continue home O2 qhs #Depression #TAYLOR -Continue gabapentin -Continue lexapro #GERD -Continue PPI DVT SCDs Admission and Anticipated Discharge Date Admission Date: July 13, 2023 Subjective Reports feeling good overall. Denies any new concerns this am. States pain is well controlled at this time Review of Systems Review of Systems: All systems reviewed & are unremarkable except as noted in Subjective Physical Exam Constitutional: WD/WN, vitals as above Respiratory: normal respiratory effort, lungs clear to auscultation Cardiovascular: RRR, no murmur, no edema Gastrointestinal (Abdomen): normal bowel sounds, soft, nontender, no hepatosplenomegaly Results & Data Results & Data Vital Signs (Past 12 Hours) Vital Signs Temp Pulse Resp BP Pulse Ox O2 Del Method O2 Flow Rate 07/14/23 22:28 36.8 C 70 18 108/68 96 Nasal Cannula 2 07/14/23 19:59 37.6 C H 87 18 91/56 L 91 Room Air 07/14/23 19:50 Nasal Cannula 2 Laboratory Results Short CBC 07/14/23 07/15/23 Range/Units 06:50 06:34 WBC 6.62 6.22 (4.8-10.8) K/ul Hgb 11.2 L 10.8 L (12.0-16.0) g/dl Hct 34.5 L 32.4 L (37.0-47.0) % Plt Count 265 238 (130-400) K/uL BMP 07/14/23 07/15/23 06:50 06:34 Sodium 139 135 L Potassium 3.9 3.4 L Chloride 106 101 Carbon Dioxide 28 28 BUN 13 14 Creatinine 0.65 0.62 Glucose 119 H 129 H Calcium 9.1 8.7 Medications Administered Home Medications Medication Instructions Recorded Confirmed Last Taken aspirin 81 mg tablet,delayed 81 mg PO QAM 05/05/18 07/12/23 07/12/23 release omega 1-vak-dae-fish oil 1,000 mg 1 cap PO TIDM 05/05/18 07/12/23 07/12/23 (120 mg-180 mg) capsule (Fish Oil) raloxifene 60 mg tablet 60 mg PO QAM osteoporosis 05/05/18 07/12/23 07/12/23 bumetanide 2 mg tablet 2 mg PO TIDM 12/30/19 07/12/23 07/12/23 cholecalciferol (vitamin D3) 10 20 mcg PO QAM 12/30/19 07/12/23 07/12/23 mcg (400 unit) tablet (Vitamin D3) docusate sodium 100 mg capsule 100 mg PO TIDM 12/30/19 07/12/23 07/12/23 fenofibrate 160 mg tablet 160 mg PO QDD 12/30/19 07/12/23 07/12/23 metolazone 2.5 mg tablet 2.5 mg PO 3XWK edema 12/30/19 07/12/23 07/11/23 omeprazole 40 mg capsule,delayed 40 mg PO DAILYBB 12/30/19 07/12/23 07/12/23 release dextromethorphan-guaifenesin 10 10 ml PO Q4H PRN Cough 03/16/22 07/12/23 Unknown mg-100 mg/5 mL oral liquid (Tussin DM) lorazepam 0.5 mg tablet 0.5 mg PO HS 03/16/22 07/12/23 07/11/23 potassium chloride 40 mEq/15 mL 40 meq PO ACHS 03/16/22 07/12/23 07/12/23 16:00 oral liquid psyllium husk 3 gram/5.4 gram oral 1 tbsp PO DAILY PRN Constipation 03/16/22 07/12/23 Unknown powder (Reguloid (psyllium husk)) vit C 250 mg-vit E 90 mg-zinc 40 1 tab PO BIDM 03/16/22 07/12/23 07/12/23 mg-copper 1 lk-ylztms-ouecmp capsule (PreserVision AREDS-2) atropine 1 % eye drops 1 drp OPR TID PRN Pain 07/12/23 07/12/23 Unknown betamethasone dipropionate 0.05 % 1 applic topical BID 07/12/23 07/12/23 07/12/23 08:00 topical cream escitalopram oxalate 10 mg tablet 10 mg PO QAM 07/12/23 07/12/23 07/12/23 ferrous sulfate 142 mg (45 mg 142 mg PO QAM 07/12/23 07/12/23 07/12/23 iron) tablet,extended release gabapentin 100 mg capsule 100 mg PO BIDM 07/12/23 07/12/23 07/12/23 guaifenesin 600 mg tablet, 600 mg PO BID PRN Congestion 07/12/23 07/12/23 Unknown extended release 12 hr (Mucus Relief ER) spironolactone 50 mg tablet See Rx Instructions .Route .COMPLEX 07/12/23 07/12/23 07/12/23 Active Medications Generic Name Dose Route Start Last Admin Trade Name Freq PRN Reason Stop Dose Admin Acetaminophen 650 mg 07/13/23 00:40 07/14/23 18:41 Acetaminophen 325 Mg Tab PO 08/12/23 00:39 650 mg QID PRN Administration pain/fever Apixaban 2.5 mg 07/14/23 09:00 07/14/23 19:52 Apixaban 2.5 Mg Tab PO 08/13/23 08:59 2.5 mg BID HAN Administration Bumetanide 2 mg 07/14/23 07:30 07/15/23 06:00 Bumetanide 1 Mg Tab PO 08/13/23 07:29 2 mg TID@0700,1200,1700 HAN Administration Docusate Sodium 100 mg 07/13/23 21:00 07/14/23 19:54 Docusate Sodium 100 Mg Cap PO 08/12/23 20:59 Not Given BID HAN Escitalopram Oxalate 10 mg 07/13/23 09:00 07/14/23 09:09 Escitalopram Oxalate 10 Mg Tab PO 08/12/23 08:59 10 mg QAM HAN Administration Fenofibrate 145 mg 07/13/23 16:30 07/14/23 16:45 Fenofibrate Nanocrystallized 145 Mg Tablet PO 08/12/23 16:29 145 mg QDD HAN Administration Gabapentin 100 mg 07/13/23 08:00 07/14/23 16:47 Gabapentin 100 Mg Cap PO 08/12/23 07:59 100 mg BIDM HAN Administration Metolazone 2.5 mg 07/15/23 06:30 07/15/23 06:00 Metolazone 2.5 Mg Tablet PO 08/14/23 06:29 2.5 mg [id number] HAN Administration Morphine Sulfate 4 mg 07/13/23 00:40 07/13/23 09:30 Morphine Sulfate 4 Mg/Ml 1 Ml Carp\Vial IV 07/27/23 00:39 4 mg Q4H PRN Administration Pain Multivitamins/Minerals 1 tab 07/13/23 09:00 07/14/23 09:09 Cerovite Adv Formula Tab PO 08/12/23 08:59 1 tab DAILY HAN Administration Oxycodone HCl 5 mg 07/13/23 00:40 07/14/23 10:31 Oxycodone Hcl Ir 5 Mg Tab (Immediate Release) PO 07/27/23 00:39 5 mg Q4H PRN Administration Pain Pantoprazole Sodium 40 mg 07/13/23 06:30 07/15/23 06:00 Pantoprazole 40 Mg Tab PO 08/12/23 06:29 40 mg DAILYBB HAN Administration Potassium Chloride 40 meq 07/13/23 09:00 07/14/23 19:51 Potassium Chloride 20 Meq/15 Ml Udc PO 08/12/23 08:59 40 meq BID HAN Administration Raloxifene HCl 60 mg 07/13/23 09:00 07/14/23 09:10 Raloxifene Hcl 60 Mg Tab PO 08/12/23 08:59 60 mg QAM HAN Administration Sennosides 17.2 mg 07/13/23 21:00 07/14/23 19:51 Senna 8.6 Mg Tab PO 08/12/23 20:59 17.2 mg HS HAN Administration (1) Closed fracture dislocation of right ankle Encounter type: initial encounter Qualified Code(s): S82.891A - Other fracture of right lower leg, initial encounter for closed fracture
[2023-07-15] MEDS: APIXABAN 2.5 MG TAB PO SCH ×2 (09:45→20:47)
[2023-07-15] MEDS: ESCITALOPRAM OXALATE 10 MG TAB PO SCH (09:45)
[2023-07-15] MEDS: GABAPENTIN 100 MG CAP PO SCH ×2 (09:45→16:35)
[2023-07-15] MEDS: RALOXIFENE HCL 60 MG TAB PO SCH (09:46)
[2023-07-15] MEDS: CEROVITE ADV FORMULA TAB PO SCH (09:46)
[2023-07-15] MEDS: POTASSIUM CHLORIDE 20 MEQ/15 ML UDC PO SCH ×2 (09:46→20:43)
[2023-07-15] MEDS: DOCUSATE SODIUM 100 MG CAP PO SCH (09:46)
[2023-07-15] MEDS ORDERED: LOPERAMIDE HCL 2 MG CAP PO STA (12:01)
[2023-07-15] MEDS ORDERED: POTASSIUM CHLORIDE CRTAB 20 MEQ TABCR PO STA (13:36)
[2023-07-15] MEDS: LOPERAMIDE HCL 2 MG CAP PO PRN ×2 (15:39→22:31)
[2023-07-15] MEDS: FENOFIBRATE NANOCRYSTALLIZED 145 MG TABLET PO SCH (16:36)
[2023-07-15] MEDS: CALCIUM 600MG + VIT D 400 IU TAB PO SCH (20:47)
[2023-07-15] MEDS: oxyCODONE HCL IR 5 MG TAB (IMMEDIATE RELEASE) PO PRN (22:59)
[2023-07-16] MEDS: ACETAMINOPHEN 325 MG TAB PO PRN (01:58)
[2023-07-16] MEDS: PANTOprazole 40 MG TAB PO SCH (06:08)
[2023-07-16] MEDS: BUMETANIDE 1 MG TAB PO SCH (06:08)
[2023-07-16 06:37] LABS: Hematocrit (blood only) 33.6 % (37.0-47.0); Hemoglobin 11.2 g/dl (12.0-16.0); Mean Corpuscular Hemoglobin 30.3 pg (25.0-34.0); Mean Corpuscular Hgb Conc 33.3 g/dL (32.0-36.0); Mean Corpuscular Volume 90.8 fL (80.0-100.0); Mean Platelet Volume 9.5 fL (9.4-12.4); Platelet Count 268 K/uL (130-400); RDW Coefficient of Variation 13.8 % (11.5-14.5); RDW Standard Deviation 45.8 fL (36.4-46.3); White Blood Count 5.19 K/ul (4.8-10.8)
[2023-07-16 06:51] LABS: BUN Creatinine Ratio 24.2 (10-20); Calcium 9.1 mg/dl (8.6-10.3); Creatinine Clr Calc Pharmacy 71.4 ml/min; Est GFR (Non-African American) 81.1 ml/min; Magnesium 1.8 mg/dl (1.7-2.4); Phosphorus 2.3 mg/dl (2.5-4.9); Potassium 2.8 mmol/L (3.5-5.1)
[2023-07-16] MEDS ORDERED: POTASSIUM PHOS 3 MMOL/1 ML INFUSION IV STA (07:53)
[2023-07-16] MEDS ORDERED: POTASSIUM PHOSPHATE 40 MMOL in SODIUM CHLORIDE 0.9% 1,000 ML IV ONE (08:15)
[2023-07-16] MEDS: POTASSIUM CHLORIDE 20 MEQ/15 ML UDC PO SCH ×2 (08:32→21:25)
[2023-07-16] MEDS: ESCITALOPRAM OXALATE 10 MG TAB PO SCH (08:33)
[2023-07-16] MEDS: GABAPENTIN 100 MG CAP PO SCH ×2 (08:33→16:15)
[2023-07-16] MEDS: CALCIUM 600MG + VIT D 400 IU TAB PO SCH ×2 (08:33→21:26)
[2023-07-16] MEDS: CEROVITE ADV FORMULA TAB PO SCH (08:33)
[2023-07-16] MEDS: APIXABAN 2.5 MG TAB PO SCH ×2 (08:33→21:25)
[2023-07-16] MEDS: RALOXIFENE HCL 60 MG TAB PO SCH (08:34)
[2023-07-16] MEDS: LIDOCAINE 5% 1 PATCH TD SCH (09:24)
[2023-07-16] MEDS: DICLOFENAC SOD 1% GEL 100 GM TUBE EXT PRN ×2 (09:25→21:27)
--- NOTE | 2023-07-16 15:49 | Hospitalist Progress Note ---
Date of Service July 16, 2023 Assessment & Plan (1) Closed fracture dislocation of right ankle: Plan: Ms. Meera Clement is an 83 year old woman with past history of alopecia areata, amaurosis fugax, RLS, right rotator cuff tendinopathy, prediabetes, CKDIIIa, hypertension, chronic right heart failure c/b peripheral edema and lymphedema , HLD, and osteoporosis admitted due to right tib/fib fracture sustained from ground-level fall. Patient is now POD 1 of Right Ankle Open Reduction Internal Fixation with Syndesmosis Repair(Right) Patient is recovering well. Plans for discharge come Tuesday to [facility]. #Acute blood loss anemia, 2/2 post-op losses -Hgb 12.4 prior, now 11.2--stable -Trend cbc, transfuse <7.0 or symptomatic #Right tib-fib fracture #Osteoporosis -s/p reduction in ED -Orthopedics following, ORIF 07/13 -Vit D: 33 -Continue home raloxifene -Oxycodone and tylenol prn -Continue VitD/Ca supplementation #Hypokalemia #Hypophosphatemia -Replace lytes prn #Mitral valve prolapse with insufficiency #Chronic Right Heart Failure #Chronic lymphedema -Hold home spironolactone 100mg qam/75mg qpm (relatively hypotensive) -Continue Metolazone 2.5mg MWF -Holding given electrolyte disturbance -Continue ASA #HLD -Continue fenofibrate #Nocturnal Hypoxia -Continue home O2 qhs #Depression #TAYLOR -Continue gabapentin -Continue lexapro #GERD -Continue PPI DVT SCDs Admission and Anticipated Discharge Date Admission Date: July 15, 2023 Subjective NAEO Reports history of orthostatic like symptoms--states she often has to sit down after standing, or stand for a moment prior to walking Denies any acute symptoms at the moment Review of Systems Review of Systems: All systems reviewed & are unremarkable except as noted in Subjective Physical Exam Constitutional: WD/WN, vitals as above Respiratory: normal respiratory effort, lungs clear to auscultation Cardiovascular: RRR, no murmur, no edema Results & Data Results & Data Vital Signs (Past 12 Hours) Vital Signs Temp Pulse Resp BP Pulse Ox O2 Del Method O2 Flow Rate 07/16/23 15:23 36.9 C 74 16 110/72 92 Room Air 07/16/23 07:28 36.9 C 66 18 131/77 99 Room Air 2 07/16/23 07:20 Room Air, Nasal Cannula 2 Laboratory Results Short CBC 07/16/23 Range/Units 06:13 WBC 5.19 (4.8-10.8) K/ul Hgb 11.2 L (12.0-16.0) g/dl Hct 33.6 L (37.0-47.0) % Plt Count 268 (130-400) K/uL BMP 07/16/23 06:13 Sodium 135 L Potassium 2.8 L Chloride 94 L Carbon Dioxide 34 H BUN 16 Creatinine 0.66 Glucose 124 H Calcium 9.1 Medications Administered Home Medications Medication Instructions Recorded Confirmed Last Taken aspirin 81 mg tablet,delayed 81 mg PO QAM 05/05/18 07/12/23 07/12/23 release omega 4-tgj-yms-fish oil 1,000 mg 1 cap PO TIDM 05/05/18 07/12/23 07/12/23 (120 mg-180 mg) capsule (Fish Oil) raloxifene 60 mg tablet 60 mg PO QAM osteoporosis 05/05/18 07/12/23 07/12/23 bumetanide 2 mg tablet 2 mg PO TIDM 12/30/19 07/12/23 07/12/23 cholecalciferol (vitamin D3) 10 20 mcg PO QAM 12/30/19 07/12/23 07/12/23 mcg (400 unit) tablet (Vitamin D3) docusate sodium 100 mg capsule 100 mg PO TIDM 12/30/19 07/12/23 07/12/23 fenofibrate 160 mg tablet 160 mg PO QDD 12/30/19 07/12/23 07/12/23 metolazone 2.5 mg tablet 2.5 mg PO 3XWK edema 12/30/19 07/12/23 07/11/23 omeprazole 40 mg capsule,delayed 40 mg PO DAILYBB 12/30/19 07/12/23 07/12/23 release dextromethorphan-guaifenesin 10 10 ml PO Q4H PRN Cough 03/16/22 07/12/23 Unknown mg-100 mg/5 mL oral liquid (Tussin DM) lorazepam 0.5 mg tablet 0.5 mg PO HS 03/16/22 07/12/23 07/11/23 potassium chloride 40 mEq/15 mL 40 meq PO ACHS 03/16/22 07/12/23 07/12/23 16:00 oral liquid psyllium husk 3 gram/5.4 gram oral 1 tbsp PO DAILY PRN Constipation 03/16/22 07/12/23 Unknown powder (Reguloid (psyllium husk)) vit C 250 mg-vit E 90 mg-zinc 40 1 tab PO BIDM 03/16/22 07/12/23 07/12/23 mg-copper 1 ji-wxbknz-lporwi capsule (PreserVision AREDS-2) atropine 1 % eye drops 1 drp OPR TID PRN Pain 07/12/23 07/12/23 Unknown betamethasone dipropionate 0.05 % 1 applic topical BID 07/12/23 07/12/23 07/12/23 08:00 topical cream escitalopram oxalate 10 mg tablet 10 mg PO QAM 07/12/23 07/12/23 07/12/23 ferrous sulfate 142 mg (45 mg 142 mg PO QAM 07/12/23 07/12/23 07/12/23 iron) tablet,extended release gabapentin 100 mg capsule 100 mg PO BIDM 07/12/23 07/12/23 07/12/23 guaifenesin 600 mg tablet, 600 mg PO BID PRN Congestion 07/12/23 07/12/23 Unknown extended release 12 hr (Mucus Relief ER) spironolactone 50 mg tablet See Rx Instructions .Route .COMPLEX 07/12/23 07/12/23 07/12/23 Active Medications Generic Name Dose Route Start Last Admin Trade Name Kg PRN Reason Stop Dose Admin Acetaminophen 650 mg 07/13/23 00:40 07/16/23 01:58 Acetaminophen 325 Mg Tab PO 08/12/23 00:39 650 mg QID PRN Administration pain/fever Apixaban 2.5 mg 07/14/23 09:00 07/16/23 08:33 Apixaban 2.5 Mg Tab PO 08/13/23 08:59 2.5 mg BID HAN Administration Bumetanide 2 mg 07/14/23 07:30 07/16/23 06:08 Bumetanide 1 Mg Tab PO 08/13/23 07:29 2 mg TID@0700,1200,1700 HAN Administration Calcium/Vitamin D 1 tab 07/15/23 21:00 07/16/23 08:33 Calcium 600mg + Vit D 400 Iu Tab PO 08/14/23 20:59 1 tab BID HAN Administration Diclofenac Sodium 2 gm 07/16/23 07:44 07/16/23 09:25 Diclofenac Sod 1% Gel 100 Gm Tube EXT 08/15/23 07:44 2 gm Q6H PRN Administration pain Protocol Escitalopram Oxalate 10 mg 07/13/23 09:00 07/16/23 08:33 Escitalopram Oxalate 10 Mg Tab PO 08/12/23 08:59 10 mg QAM HAN Administration Fenofibrate 145 mg 07/13/23 16:30 07/15/23 16:36 Fenofibrate Nanocrystallized 145 Mg Tablet PO 08/12/23 16:29 145 mg QDD HAN Administration Gabapentin 100 mg 07/13/23 08:00 07/16/23 08:33 Gabapentin 100 Mg Cap PO 08/12/23 07:59 100 mg BIDM HAN Administration Potassium Phosphate 40 mmol/ 1,013.3333 mls @ 100 mls/hr 07/16/23 08:15 07/16/23 09:47 Sodium Chloride IV 07/16/23 18:22 100 mls/hr ONE ONE Administration Lidocaine 1 patch 07/16/23 09:00 07/16/23 09:24 Lidocaine 5% 1 Patch TD 08/15/23 08:59 1 patch QAM HAN Administration Loperamide HCl 2 mg 07/15/23 12:01 07/15/23 22:31 Loperamide Hcl 2 Mg Cap PO 08/14/23 12:00 2 mg Q6H PRN Administration Diarrhea Metolazone 2.5 mg 07/15/23 06:30 07/15/23 06:00 Metolazone 2.5 Mg Tablet PO 08/14/23 06:29 2.5 mg [id number] HAN Administration Morphine Sulfate 4 mg 07/13/23 00:40 07/13/23 09:30 Morphine Sulfate 4 Mg/Ml 1 Ml Carp\Vial IV 07/27/23 00:39 4 mg Q4H PRN Administration Pain Multivitamins/Minerals 1 tab 07/13/23 09:00 07/16/23 08:33 Cerovite Adv Formula Tab PO 08/12/23 08:59 1 tab DAILY HAN Administration Oxycodone HCl 5 mg 07/13/23 00:40 07/15/23 22:59 Oxycodone Hcl Ir 5 Mg Tab (Immediate Release) PO 07/27/23 00:39 5 mg Q4H PRN Administration Pain Pantoprazole Sodium 40 mg 07/13/23 06:30 07/16/23 06:08 Pantoprazole 40 Mg Tab PO 08/12/23 06:29 40 mg DAILYBB HAN Administration Potassium Chloride 40 meq 07/13/23 09:00 07/16/23 08:32 Potassium Chloride 20 Meq/15 Ml Udc PO 08/12/23 08:59 40 meq BID HAN Administration Raloxifene HCl 60 mg 07/13/23 09:00 07/16/23 08:34 Raloxifene Hcl 60 Mg Tab PO 08/12/23 08:59 60 mg QAM HAN Administration (1) Closed fracture dislocation of right ankle Encounter type: initial encounter Qualified Code(s): S82.891A - Other fracture of right lower leg, initial encounter for closed fracture
[2023-07-16] MEDS: FENOFIBRATE NANOCRYSTALLIZED 145 MG TABLET PO SCH (16:17)
[2023-07-16 16:36] LABS: BUN Creatinine Ratio 23.8 (10-20); Calcium 9.2 mg/dl (8.6-10.3); Creatinine Clr Calc Pharmacy 56.1 ml/min; Est GFR (Non-African American) 63.8 ml/min; Potassium 3.1 mmol/L (3.5-5.1)
[2023-07-16] MEDS ORDERED: POT PHOSPHATE MONOBASIC W/ SOD TAB PO SCH (17:00)
[2023-07-17] MEDS: LORazepam 0.5 MG TAB PO PRN ×2 (00:22→22:00)
[2023-07-17] MEDS: PANTOprazole 40 MG TAB PO SCH (06:03)
[2023-07-17 06:49] LABS: Hematocrit (blood only) 31.6 % (37.0-47.0); Hemoglobin 10.6 g/dl (12.0-16.0); Mean Corpuscular Hemoglobin 30.5 pg (25.0-34.0); Mean Corpuscular Hgb Conc 33.5 g/dL (32.0-36.0); Mean Corpuscular Volume 90.8 fL (80.0-100.0); Mean Platelet Volume 9.7 fL (9.4-12.4); Platelet Count 284 K/uL (130-400); RDW Coefficient of Variation 14.2 % (11.5-14.5); RDW Standard Deviation 47.7 fL (36.4-46.3); Red Blood Count 3.48 M/uL (4.20-5.40); White Blood Count 4.49 K/ul (4.8-10.8)
[2023-07-17 07:08] LABS: BUN Creatinine Ratio 32.4 (10-20); Calcium 9.3 mg/dl (8.6-10.3); Creatinine Clr Calc Pharmacy 66.4 ml/min; Est GFR (African American) 90.7 ml/min; Est GFR (Non-African American) 78.2 ml/min; Magnesium 1.8 mg/dl (1.7-2.4); Phosphorus 2.6 mg/dl (2.5-4.9); Potassium 3.3 mmol/L (3.5-5.1)
[2023-07-17] MEDS ORDERED: SPIRONOLACTONE 12.5 MG TAB PO ONE (08:30)
[2023-07-17] MEDS ORDERED: BUMETANIDE 1 MG TAB PO SCH (09:00)
[2023-07-17] MEDS: GABAPENTIN 100 MG CAP PO SCH ×2 (09:10→16:03)
[2023-07-17] MEDS: POTASSIUM CHLORIDE 20 MEQ/15 ML UDC PO SCH ×3 (09:10→20:21)
[2023-07-17] MEDS: ESCITALOPRAM OXALATE 10 MG TAB PO SCH (09:10)
[2023-07-17] MEDS: CALCIUM 600MG + VIT D 400 IU TAB PO SCH ×2 (09:10→20:20)
[2023-07-17] MEDS: LIDOCAINE 5% 1 PATCH TD SCH (09:11)
[2023-07-17] MEDS: RALOXIFENE HCL 60 MG TAB PO SCH (09:11)
[2023-07-17] MEDS: APIXABAN 2.5 MG TAB PO SCH ×2 (09:11→20:20)
[2023-07-17] MEDS: CEROVITE ADV FORMULA TAB PO SCH (09:11)
--- NOTE | 2023-07-17 13:52 | Hospitalist Progress Note ---
Date of Service July 17, 2023 Assessment & Plan (1) Closed fracture dislocation of right ankle: Plan: Ms. Meera Clement is an 83 year old woman with past history of alopecia areata, amaurosis fugax, RLS, right rotator cuff tendinopathy, prediabetes, CKDIIIa, hypertension, chronic right heart failure c/b peripheral edema and lymphedema , HLD, and osteoporosis admitted due to right tib/fib fracture sustained from ground-level fall. Patient is now POD 1 of Right Ankle Open Reduction Internal Fixation with Syndesmosis Repair(Right) Patient is recovering well. Plans for discharge come Tuesday to [facility]. #Acute blood loss anemia, 2/2 post-op losses -Hgb 12.4 prior, now 11.2--stable -Trend cbc, transfuse <7.0 or symptomatic #Right tib-fib fracture #Osteoporosis -s/p reduction in ED -Orthopedics following, ORIF 07/13 -Vit D: 33 -Continue home raloxifene -Oxycodone and tylenol prn -Continue VitD/Ca supplementation #Hypokalemia #Hypophosphatemia -Replace lytes prn #Mitral valve prolapse with insufficiency #Chronic Right Heart Failure #Chronic lymphedema -Hold home spironolactone 100mg qam/75mg qpm (relatively hypotensive) -Start spironolactone dosing and increase as able -Continue Metolazone 2.5mg MWF -Resume bumex 2mg daily, increase as able, potassium supplementation as able -Continue ASA #HLD -Continue fenofibrate #Nocturnal Hypoxia -Continue home O2 qhs #Depression #TAYLOR -Continue gabapentin -Continue lexapro #GERD -Continue PPI DVT SCDs Admission and Anticipated Discharge Date Admission Date: July 15, 2023 Subjective Feels a bit down being hospitalized, states rogelio is controlled overall--but notes she is ready to go somewhere else as she feels lonely and bored Made joke about walking through metal detectors with her surgery, and was able to engaged conversational willingly more than prior visits Review of Systems Review of Systems: All systems reviewed & are unremarkable except as noted in Subjective Physical Exam Constitutional: WD/WN, vitals as above off oxygen Respiratory: normal respiratory effort, lungs clear to auscultation Cardiovascular: RRR, no murmur, no edema Results & Data Results & Data Vital Signs (Past 12 Hours) Vital Signs Temp Pulse Resp BP Pulse Ox O2 Del Method O2 Flow Rate 07/17/23 07:27 36.5 C 68 16 128/82 98 Nasal Cannula 2 07/17/23 07:25 Room Air Laboratory Results Short CBC 07/17/23 Range/Units 06:18 WBC 4.49 L (4.8-10.8) K/ul Hgb 10.6 L (12.0-16.0) g/dl Hct 31.6 L (37.0-47.0) % Plt Count 284 (130-400) K/uL BMP 07/16/23 07/17/23 15:53 06:18 Sodium 135 L 137 Potassium 3.1 L 3.3 L Chloride 93 L 98 Carbon Dioxide 34 H 33 H BUN 20 23 Creatinine 0.84 0.71 Glucose 184 H 120 H Calcium 9.2 9.3 Medications Administered Home Medications Medication Instructions Recorded Confirmed Last Taken aspirin 81 mg tablet,delayed 81 mg PO QAM 05/05/18 07/12/23 07/12/23 release omega 9-rin-vai-fish oil 1,000 mg 1 cap PO TIDM 05/05/18 07/12/23 07/12/23 (120 mg-180 mg) capsule (Fish Oil) raloxifene 60 mg tablet 60 mg PO QAM osteoporosis 05/05/18 07/12/23 07/12/23 bumetanide 2 mg tablet 2 mg PO TIDM 12/30/19 07/12/23 07/12/23 cholecalciferol (vitamin D3) 10 20 mcg PO QAM 12/30/19 07/12/23 07/12/23 mcg (400 unit) tablet (Vitamin D3) docusate sodium 100 mg capsule 100 mg PO TIDM 12/30/19 07/12/23 07/12/23 fenofibrate 160 mg tablet 160 mg PO QDD 12/30/19 07/12/23 07/12/23 metolazone 2.5 mg tablet 2.5 mg PO 3XWK edema 12/30/19 07/12/23 07/11/23 omeprazole 40 mg capsule,delayed 40 mg PO DAILYBB 12/30/19 07/12/23 07/12/23 release dextromethorphan-guaifenesin 10 10 ml PO Q4H PRN Cough 03/16/22 07/12/23 Unknown mg-100 mg/5 mL oral liquid (Tussin DM) lorazepam 0.5 mg tablet 0.5 mg PO HS 03/16/22 07/12/23 07/11/23 potassium chloride 40 mEq/15 mL 40 meq PO ACHS 03/16/22 07/12/23 07/12/23 16:00 oral liquid psyllium husk 3 gram/5.4 gram oral 1 tbsp PO DAILY PRN Constipation 03/16/22 07/12/23 Unknown powder (Reguloid (psyllium husk)) vit C 250 mg-vit E 90 mg-zinc 40 1 tab PO BIDM 03/16/22 07/12/23 07/12/23 mg-copper 1 uo-ougvaz-hokinc capsule (PreserVision AREDS-2) atropine 1 % eye drops 1 drp OPR TID PRN Pain 07/12/23 07/12/23 Unknown betamethasone dipropionate 0.05 % 1 applic topical BID 07/12/23 07/12/2307/12 08:00 topical cream escitalopram oxalate 10 mg tablet 10 mg PO QAM 07/12/23 07/12/23 07/12/23 ferrous sulfate 142 mg (45 mg 142 mg PO QAM 07/12/23 07/12/23 07/12/23 iron) tablet,extended release gabapentin 100 mg capsule 100 mg PO BIDM 07/12/23 07/12/23 07/12/23 guaifenesin 600 mg tablet, 600 mg PO BID PRN Congestion 07/12/23 07/12/23 Unknown extended release 12 hr (Mucus Relief ER) spironolactone 50 mg tablet See Rx Instructions .Route .COMPLEX 07/12/23 07/12/23 07/12/23 Active Medications Generic Name Dose Route Start Last Admin Trade Name Freq PRN Reason Stop Dose Admin Acetaminophen 650 mg 07/13/23 00:40 07/16/23 01:58 Acetaminophen 325 Mg Tab PO 08/12/23 00:39 650 mg QID PRN Administration pain/fever Apixaban 2.5 mg 07/14/23 09:00 07/17/23 09:11 Apixaban 2.5 Mg Tab PO 08/13/23 08:59 2.5 mg BID HAN Administration Calcium/Vitamin D 1 tab 11/24/23 21:00 07/17/23 09:10 Calcium 600mg + Vit D 400 Iu Tab PO 08/14/23 20:59 1 tab BID HAN Administration Diclofenac Sodium 2 gm 07/16/23 07:44 07/16/23 21:27 Diclofenac Sod 1% Gel 100 Gm Tube EXT 08/15/23 07:44 2 gm Q6H PRN Administration pain Protocol Escitalopram Oxalate 10 mg 07/13/23 09:00 07/17/23 09:10 Escitalopram Oxalate 10 Mg Tab PO 08/12/23 08:59 10 mg QAM HAN Administration Fenofibrate 145 mg 07/13/23 16:30 07/16/23 16:17 Fenofibrate Nanocrystallized 145 Mg Tablet PO 08/12/23 16:29 145 mg QDD HAN Administration Gabapentin 100 mg 07/13/23 08:00 07/17/23 09:10 Gabapentin 100 Mg Cap PO 08/12/23 07:59 100 mg BIDM HAN Administration Lidocaine 1 patch 07/16/23 09:00 07/17/23 09:11 Lidocaine 5% 1 Patch TD 08/15/23 08:59 1 patch QAM HAN Administration Loperamide HCl 2 mg 07/15/23 12:01 07/15/23 22:31 Loperamide Hcl 2 Mg Cap PO 08/14/23 12:00 2 mg Q6H PRN Administration Diarrhea Lorazepam 0.5 mg 07/13/23 03:18 07/17/23 00:22 Lorazepam 0.5 Mg Tab PO 08/12/23 03:17 0.5 mg HS PRN Administration insomnia Metolazone 2.5 mg 07/15/23 06:30 07/15/23 06:00 Metolazone 2.5 Mg Tablet PO 08/14/23 06:29 2.5 mg [id number] HAN Administration Miscellaneous 1 each 07/16/23 21:00 07/16/23 21:27 Remove Lidoderm Patch N/A 08/15/23 20:59 1 each DAILY@2100 HAN Administration Morphine Sulfate 4 mg 07/13/23 00:40 07/13/23 09:30 Morphine Sulfate 4 Mg/Ml 1 Ml Carp\Vial IV 07/27/23 00:39 4 mg Q4H PRN Administration Pain Multivitamins/Minerals 1 tab 07/13/23 09:00 07/17/23 09:11 Cerovite Adv Formula Tab PO 08/12/23 08:59 1 tab DAILY HAN Administration Oxycodone HCl 5 mg 07/13/23 00:40 07/15/23 22:59 Oxycodone Hcl Ir 5 Mg Tab (Immediate Release) PO 07/27/23 00:39 5 mg Q4H PRN Administration Pain Pantoprazole Sodium 40 mg 07/13/23 06:30 07/17/23 06:03 Pantoprazole 40 Mg Tab PO 08/12/23 06:29 40 mg DAILYBB HAN Administration Potassium Chloride 40 meq 07/13/23 09:00 07/17/23 09:10 Potassium Chloride 20 Meq/15 Ml Udc PO 08/12/23 08:59 40 meq BID HAN Administration Raloxifene HCl 60 mg 07/13/23 09:00 07/17/23 09:11 Raloxifene Hcl 60 Mg Tab PO 08/12/23 08:59 60 mg QAM HAN Administration (1) Closed fracture dislocation of right ankle Encounter type: initial encounter Qualified Code(s): S82.891A - Other fracture of right lower leg, initial encounter for closed fracture
[2023-07-17] MEDS: FENOFIBRATE NANOCRYSTALLIZED 145 MG TABLET PO SCH (16:03)
[2023-07-17] MEDS: ACETAMINOPHEN 325 MG TAB PO PRN (17:26)
[2023-07-17] MEDS: DICLOFENAC SOD 1% GEL 100 GM TUBE EXT PRN (20:32)
[2023-07-18] MEDS ORDERED: rOPINIRole HCL 0.25 MG TABLET PO STA (01:36)
[2023-07-18] MEDS: PANTOprazole 40 MG TAB PO SCH (06:00)
[2023-07-18] MEDS: metOLazone 2.5 MG TABLET PO SCH (06:00)
[2023-07-18] MEDS: ESCITALOPRAM OXALATE 10 MG TAB PO SCH (08:01)
[2023-07-18] MEDS: CALCIUM 600MG + VIT D 400 IU TAB PO SCH (08:02)
[2023-07-18] MEDS: CEROVITE ADV FORMULA TAB PO SCH (08:02)
[2023-07-18] MEDS: RALOXIFENE HCL 60 MG TAB PO SCH (08:02)
[2023-07-18] MEDS: GABAPENTIN 100 MG CAP PO SCH (08:02)
[2023-07-18] MEDS: APIXABAN 2.5 MG TAB PO SCH (08:02)
[2023-07-18] MEDS: LIDOCAINE 5% 1 PATCH TD SCH (08:03)
[2023-07-18] MEDS: POTASSIUM CHLORIDE 20 MEQ/15 ML UDC PO SCH (08:03)
[2023-07-18 08:41] LABS: BUN Creatinine Ratio 30.8 (10-20); Calcium 10.2 mg/dl (8.6-10.3); Creatinine Clr Calc Pharmacy 72.5 ml/min; Est GFR (African American) 94.5 ml/min; Est GFR (Non-African American) 81.5 ml/min; Potassium 4.3 mmol/L (3.5-5.1)
[2023-07-18] MEDS ORDERED: SPIRONOLACTONE 25 MG TAB PO SCH (09:00)
[2023-07-18] MEDS ORDERED: BUMETANIDE 1 MG TAB PO SCH (09:00)
--- NOTE | 2023-07-18 12:06 | Discharge Summary ---
Discharge Summary Date of Service July 18, 2023 Notes For Next Care Provider Medication Changes From Visit -Eliquis 2.5mg BID, DVT ppx iso orthopedic surgery--continue per orthopedics Admission HPI Per Admitting Provider History obtained from patient and records. Medical history significant for right-sided heart failure (EF 55%, TTE 2021), sleep disordered breathing on nocturnal supplemental O2/pulmonary hypertension/CPAP intolerance, HTN, prediabetes, GERD, anxiety, RLS, chronic lymphedema as per records. Last confinement February 2022 for right-sided heart failure. Patient had a fall at personal care facility last night while walking to the bathroom. Patient lost her balance and fell down on her ankle. Patient unable to get up until EMS arrival at the facility. No head trauma/LOC/chest pain/SOB. Achy right ankle pain. Usual fluid retention. Subsequent closed reduction of dislocated right ankle fracture done at the ER. Patient currently comfortable. MEDICAL HISTORY: SURGICAL HISTORY: appendectomy, cholecystectomy, cataract surgery, D&C, BTL, tear duct surgery, tonsillectomy FAMILY HISTORY: There is a family history of heart disease, colon cancer, DM. PERSONAL /SOCIAL HISTORY: Nonsmoker. 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 Admission Exam Per Admitting Provider GENERAL: Comfortable, morbidly obese, flat affect, no respiratory distress SKIN: Normal color, warm HEENT: Bespectacled, pink palpebral conjunctivae, no ptosis, moist buccal mucosa NECK : Supple, short neck, no tenderness CHEST : Decreased breath sounds, no tenderness HEART : RRR, no obvious murmurs ABDOMEN: distention, nontender EXTREMITIES : RLE splint, LE swelling without tenderness, no other conspicuous deformities noted NEUROLOGIC : Coherent, no facial asymmetry, no other gross focality Principal Dx & Hospital Course #1 = Principal Diagnosis (1) Closed fracture dislocation of right ankle: Ms. Meera Clement is an 83 year old woman with past history of alopecia areata, amaurosis fugax, RLS, right rotator cuff tendinopathy, prediabetes, CKDIIIa, hypertension, chronic right heart failure c/b peripheral edema and lymphedema , HLD, and osteoporosis admitted due to right tib/fib fracture sustained from ground-level fall. Patient is now POD 1 of Right Ankle Open Reduction Internal Fixation with Syndesmosis Repair(Right) Patient is recovering well. Discharge to [facility]. #COVID + -Incidental, asymptomatic #Acute blood loss anemia, 2/2 post-op losses -Hgb 12.4 prior, now 11.2--stable -Follow up OP CBC in 1-2 weeks #Right tib-fib fracture #Osteoporosis -s/p reduction in ED -Orthopedics following, ORIF 07/13 -Vit D: 33 -Continue home raloxifene -Continue tylenol prn -Continue VitD/Ca supplementation -Eliquis 2.5mg BID per ortho #Hypokalemia #Hypophosphatemia -Sufficiently replaced upon DC #Mitral valve prolapse with insufficiency #Chronic Right Heart Failure #Chronic lymphedema -Resume home medications as prescribed #HLD -Continue fenofibrate #Nocturnal Hypoxia -Continue home O2 qhs #Depression #TAYLOR -Continue gabapentin -Continue lexapro #GERD -Continue PPI On day of discharge, patient with pain controlled with prn medications, denied any acute concerns, and tolerating PO intake sufficently. Discharge Exam Constitutional WD/WN, vitals as above Respiratory normal respiratory effort, lungs clear to auscultation Cardiovascular RRR, no murmur, no edema Gastrointestinal (Abdomen) normal bowel sounds, soft, nontender, no hepatosplenomegaly Updated Medication List Medication Instructions Recorded Confirmed Type aspirin 81 mg tablet,delayed 81 mg PO QAM 05/05/18 07/12/23 History release omega 9-zuf-bew-fish oil 1,000 mg 1 cap PO TIDM 05/05/18 07/12/23 History (120 mg-180 mg) capsule (Fish Oil) raloxifene 60 mg tablet 60 mg PO QAM osteoporosis 05/05/18 07/12/23 History bumetanide 2 mg tablet 2 mg PO TIDM 12/30/19 07/12/23 History docusate sodium 100 mg capsule 100 mg PO TIDM 12/30/19 07/12/23 History fenofibrate 160 mg tablet 160 mg PO QDD 12/30/19 07/12/23 History metolazone 2.5 mg tablet 2.5 mg PO 3XWK edema 12/30/19 07/12/23 History omeprazole 40 mg capsule,delayed 40 mg PO DAILYBB 12/30/19 07/12/23 History release dextromethorphan-guaifenesin 10 10 ml PO Q4H PRN Cough 03/16/22 07/12/23 History mg-100 mg/5 mL oral liquid (Tussin DM) lorazepam 0.5 mg tablet 0.5 mg PO HS 03/16/22 07/12/23 History potassium chloride 40 mEq/15 mL 40 meq PO ACHS 03/16/22 07/12/23 History oral liquid psyllium husk 3 gram/5.4 gram oral 1 tbsp PO DAILY PRN Constipation 03/16/22 07/12/23 History powder (Reguloid (psyllium husk)) vit C 250 mg-vit E 90 mg-zinc 40 1 tab PO BIDM 03/16/22 07/12/23 History mg-copper 1 le-vdkjlg-seqjrc capsule (PreserVision AREDS-2) atropine 1 % eye drops 1 drp OPR TID PRN Pain 07/12/23 07/12/23 History betamethasone dipropionate 0.05 % 1 applic topical BID 07/12/23 07/12/23 History topical cream escitalopram oxalate 10 mg tablet 10 mg PO QAM 07/12/23 07/12/23 History ferrous sulfate 142 mg (45 mg 142 mg PO QAM 07/12/23 07/12/23 History iron) tablet,extended release gabapentin 100 mg capsule 100 mg PO BIDM 07/12/23 07/12/23 History guaifenesin 600 mg tablet, 600 mg PO BID PRN Congestion 07/12/23 07/12/23 History extended release 12 hr (Mucus Relief ER) spironolactone 50 mg tablet See Rx Instructions .Route .COMPLEX 07/12/23 07/12/23 History apixaban 2.5 mg tablet (Eliquis) 2.5 mg PO BID #60 tabs 07/18/23 Rx calcium 600 mg-D3 800 unit-mag11 1 tab PO BID #60 tabs 07/18/23 Rx 50 zu-vqnt-trpzjv-olayinka-s.borat tablet (Caltrate 600-D Plus Minerals) Hospital Stay Data Consultations 07/12/23 21:53 ED Decision to Admit Stat Procedures Performed Operation Date: 07/13/23 11:40 Actual Procedures p Right Ankle Open Reduction Internal Fixation with Syndesmosis Repair(Right) - Tulio Garcia DO Diagnostic Imagining Performed 07/13/23 FL ankle RT min 3V RTN Routine 07/13/23 16:31 US - OR guided needle placemen Routine Pending Results Patient Have Any Pending Studies at Discharge: No Discharge Instructions Given to Patient (Per Discharging Provider) You were admitted on 07/12 due to fracture of right tibula/fibula and underwent Right Ankle Open Reduction Internal Fixation with Syndesmosis Repair pm 07/13. You will continue all home medications as prescribed. You will continue the following medication to prevent blood clots: Eliquis 2.5 mg twice daily You will continue that medication until directed to stop by Orthopedics. You will have follow up arranged with the orthopedic surgeon. Please obtain the following lab work to monitor your electrolytes: BMP Total Time Total Time Spent Total Time Spent (In Minutes): 35
== END 2023-07-18 13:22 | DRG 492 ==
LOC: EDINP 19:22 → ED 19:22 → EDINP 07-13 16:16 → 3W 07-13 20:03

== ENCOUNTER 2023-08-16 07:15 | Inpatient (IN) ==
--- OUTSIDE RECORDS SUMMARY | 2023-08-16 07:21 | External Medical Summary | Summary of Care ---
Author Name Unknown Organization [facility] Address [address] [place] [address] Phone [phone] Care Team Providers Care Back End Architect Name Role Phone Adriana Lewis MD Primary Care Provider Encounter Details Date Type Department Care Team (Late st Contact Info) Description 08/11/2023 Orders Only Family Practice [facility] [address] [facility] [place] [id number] Adriana Lewis MD [address] [place] [address] Allergies Active Allergy Reactions Criticality Noted Date Comments Calcitonin 02/03/2001 Itchy eyes Ezetimibe Muscle pain 01/28/2022 severe joint and muscle pains Statins Muscle pain 11/24/2010 Sulfa Antibiotics 02/03/2001 itching Sulfamethoxazole-Trimethop rim 10/28/2022 Other reaction(s): Eye swelling Tetracyclines & Related 02/03/2001 declymcin photo sensitivity Trimethoprim 10/28/2022 Other reaction(s): itchy yes, Swelling around eyes documented as of this encounter (statuses as of 08/11/2023) Medications Medication Sig Dispensed Refills Start Date [...] MG Capsule Take 1 Capsule by mouth 3 times a day as needed for Constipation. 0 Active Vitamin D, Cholecalciferol, 400 units [...] Instill into eye as needed. 0 Active guaiFENesin ER 600 MG Oral Tablet Extended Release 12 Hour (Mucinex)Indicatio ns:Viral URI with cough Take 1 Tablet by mouth 2 times a day as needed for Congestion. Take with plenty of water. Do not cut, crush or chew 40 Tablet 2 11/12/2022 Active Spironolactone 50 MG Oral Tablet (Aldactone)Indicat ions:Secondary hypertension with goal blood pressure less than 140/90 TAKE 2 TABS BY MOUTH ONCE DAILY IN THE AM FOR HTN. TAKE 1 1/2 TABS BY MOUTH ONCE DAILY IN THE PM FOR HTN 120 Tablet 5 01/31/2023 Active Atropine Sulfate 1 % Ophthalmic Solution [...] to affected areas on the scalp, Pharmacy: [facility] 0 04/21/2023 Active Reguloid 25 % Oral [...] FOR SUPPLEMENT 2200 mL 5 05/24/2023 Active Escitalopram Oxalate 10 MG Oral Tablet (Lexapro)Indicatio ns:Current mild episode of major depressive disorder without prior episode (HCC) TAKE 1 TABLET BY MOUTH ONCE DAILY *DEPRESSION* 28 Tablet 5 07/21/2023 Active Fenofibrate 160 MG Oral Tablet (Lofibra)Indicatio ns:Dyslipidemia, goal LDL below 70 TAKE ONE TABLET BY MOUTH ONCE DAILY (CHOLESTEROL) 90 Tablet 3 07/21/2023 Active Calcium Carb-Cholecalcifer ol 600-5 MG-MCG Oral Tablet (Calcium 600 + D) Take by mouth. 0 Act pedro aquaphilic OINT 50 g, Menthol-Zinc Oxide 0.44-20.6 % OINT 50 g Apply topically to affected area 3 times a day. 0 Active Apixaban 2.5 MG Oral Tablet (Eliquis) Take by mouth 2 times a day. 0 Active metOLazone 5 MG Oral Tablet (Zaroxolyn)Indicat ions:Chronic right-sided heart failure (HCC) TAKE 1 TABLET BY MOUTH THREE TIMES WEEKLY ON MON,WED AND FRI FOR CHF NOT ON CYCLE PLEASE REORDER 12 Tablet 4 08/08/2023 Active documented as of this encounter (statuses as of 08/11/2023) Active Problems Problem Noted Date Diagnosed Date ARB intolerance 05/06/2023 Overview: Hypotensive and sweaty with first dose of irebesartan 75mg. Discontinued. Body mass index (BMI) of 40.0 to 44.9 in adult 0 05/02/2023 Overview: Per Obesity protocol - Per Obesity protocol Chronic heart failure with preserved ejection fr action 01/20/2023 Current mild episode of scot r depressive disorder without prior episode 10/21/2022 Carpal tunnel syndrome, bilateral 09/10/2022 Elevated hemoglobin A1c 07/01/2022 Pain in joint of right shoulder 07/21/2021 Chronic kidney disease, stage 3a 06/01/2021 Overview: Per CKD protocol Restless legs syndrome 05/06/2021 Hypertensive heart and kidne y disease with chronic right heart failure and stage 3a chronic kidney disease 10/27/2020 Overview: Per CKD protocol TAYLOR (generalized anxiety disorder) 10/24/2020 Nonrheumatic mitral valve regurgitation 10/25/19 21 Spinal stenosis of lumbar re gion with neurogenic claudication 01/30/2020 Chronic diastolic (congestive) heart failure 10/2019 Gastroesophageal reflux disease with esophagitis 04/24/2019 Dependence on nocturnal oxygen therapy 9 Exudative age-related macula r degeneration of right eye with active choroidal neovascularization 04/24/2019 Acquired lymphedema of lower extremity 9 Overview: [facility]es [facility] l[facility]hedema [facility] Chronic right-sided heart failure 01/11/2019 Dyslipidemia 06/04/2016 Mitral valve prolapse 06/29/2005 HTN, goal below 130/80 01/30/2003 Senile osteoporosis 01/30/2003 documented as of this encounter (statuses as of 08/11/2023) Resolved Problems Problem Noted Date Diagnosed Date Resolved Date Chronic acquired lymphedema 09/29/2022 04/28/2023 Prediabetes 07/05/2022 04/28/2023 Overview: Per Prediabetes protocol Body mass index (BMI) of 45. 0 to 49.9 in adult 07/05/2022 05/05/2023 Overview: Per Obesity protocol Mouth sores 02/25/2021 04/28/2023 Sore throat 02/19/2021 04/28/2023 Pickwickian syndrome 04/24/2019 019 Hypertensive heart and kidne y disease with chronic right heart failure and stage 3 chronic kidney disease 04/24/2019 10/30/2020 Overview: Per CKD protocol Kidney disease, chronic, sta ge III (GFR 30-59 ml/min) 05/29/2018 07/03/2020 Overview: Per CKD protocol #1 Dry nose 06/21/2017 12/04/2017 Deviated nasal septum 06/21/20172017 Obesity, morbid (more than 1 00 lbs over ideal weight or BMI > 40) 12/23/2014 05/30/2017 Lipid disorder 08/26/2011 05/30/2017 Genetic Sleep Disorder [facility] Other*[id number] 12/31/2010 03/18/2016 Obesity, morbid (more than 1 00 lbs over ideal weight or BMI > 40) 11/18/2009 07/01/2022 Overview: Per Obesity Taxonomy, bmi 46 ICD-10 update of inactive term Vertebral fracture, osteoporotic 07/29/2008 05/30/2017 Overview: Per Osteoporotic Vertebral Fracture Protocol # 9 ADVANCE DIRECTIVE INFORMATION 06/28/2005 12/04/2017 Overview: pt received booklet and will bring this in to be scanned. Morbid Obesity, BMI not known 06/08/2005 11/18/2009 Overview: Per Obesity Taxonomy, bmi 46 Vitamin D deficiency 07/31/2004 005 crusted papule dependent right chin 03/11/2004 05/30/2017 Morbid obesity, BMI not known 01/30/2003 06/08/2005 Edema 01/30/2003 04/24/2019 Menopause 01/30/2003 05/30/2017 Overview: 1982 documented as of this encounter (statuses as of 08/11/2023) Immunizations Name Administration Dates Next Due COVID-19 [...] drink = 0.6 oz pur e alcohol) PHQ-2 Answer Date Recorded PHQ-2 Score -1 2020 Hunger Vital Sign Answer Date Recorded Worried About Running Out of Food in the Last Ye ar Never true 08/14/2019 Ran Out of Food in the Last Year Never true 08/14/2019 Sex and Gender Information Value Date Recorded Sex Assigned at Not on file Gender Identity Not on file Sexual Orientation Not on file Job Start Date Occupation Industry Not on file Not on file Not on file documented as of this encounter Plan of Treatment Upcoming Encounters Date Type Department Care Team (Late st Contact Info) Description 09/08/2023 8:15 AM EST Office Visit Ophthalmology, [facility] [address] [id number] Hernan Rosario DO [address] [place] [id number] 11/03/2023 9:40 AM EDT Office Visit Family Practice [facility] [address] [address] Adriana Lewis MD [address] [place] [id number] Health Maintenance Due Date Last Done Comments DXA Scan 04/23/2017 04/23/2015, 03/22, 01/22/2011, Additional history exists Depression Screening 04/25/2021 04/25/2020 COVID-19 Vaccine ( season) 2023 06/16/2021, 09/30/2020, 09/02/2020 Influenza Vaccine (FLU shot) (#1) 2023 DTaP,Tdap,and Td Vaccines (2 - Td or Tdap) 07/02/2023 07/02/2013 GFR 02/10/2024 08/10/2023, 01/21, 01/26/2023, Additional history exists Albumin/Creatinine Ratio 04/27/2024 04/27/2023, 06/23 CKD HGB USE SMARTSET 27352 04/27/202404/27, 01/05/2022, 04/25/2020, Additional history exists CKD PHOS USE SMARTSET 30117 04/27/202401/2023, 05/06/2021, 04/25/2020, Additional history exists Pneumococcal Vaccine: 65+ Years Completed 12/05/2015, 06/23/2004 VITAMIN D LEVEL ONCE IN A LIFETIME-USE SMARTSET# [id number] Completed 02/10/2021, 05/29/2015, 01/22/2013, Additional history exists [...] Procedure Name Priority Date/Time Associated Diagnosis Comments BASIC METABOLIC PANEL Routine 08/10/2023 documented in this encounter Results * (ABNORMAL) BASIC METABOLIC PANEL (08/10/2023) CREATININE-OUT SIDE LAB 0.92 0.6 - 1.2 MG/DL OUTSIDE LAB (SEE SCANNED REPORT) EGFR-OUTSIDE LAB 57.2 ML/MIN OUTSIDE LAB (SEE SCANNED REPORT) POTASSIUM-OUTS [facility] LAB 3.6 3.5 - 5.1 MMOL/L OUTSIDE LAB (SEE SCANNED REPORT) GLUCOSE-OUTSID E LAB 119(A) 70 - 99 MG/DL OUTSIDE LAB (SEE SCANNED REPORT) Blood Venous blood specimen / Unknown 08/10/2023 Adriana Lewis MD [facility] Organization Address City/State/ZIP Co de Phone Number OUTSIDE LAB (SEE SCANNED REPORT) documented in this encounter Care Teams Back End Architect Relationship Specialty Start Date End Date Adriana Lewis MD [address] [facility] [place] [id number] PCP - General Internal Medicine 02/10/21 documented as of this encounter
--- NOTE | 2023-08-16 07:33 | Emergency Department Note ---
Impression & Plan Open wound of right lower leg ED Provider Note NAME: ATIF PALMER AGE: 83 SEX: Female INFORMANT: Patient ED PROVIDER(S): Dheeraj Whiting MD CHIEF COMPLAINT: Right ankle wound PLAN: Disposition: Admitted Outpatient prescription management: none Referral: None MEDICAL DECISION MAKING: Patient was evaluated for her right ankle wound and blood work was obtained. This included blood cultures and lactate. Inflammatory markers were checked. She had a wound culture performed. Patient did not have any pain unless this was palpated. Patient's CBC was unremarkable however Gram stain was consistent with gram-positive cocci and gram-negative bacilli. Patient did have an elevated ESR and CRP. This did raise concerns for infection given the physical examination. I did empirically give the patient Zosyn and daptomycin. Patient did have a mildly elevated lactate but is not septic. She has no white count, tachycardia, or abnormal vital signs. Consult placed with her orthopedic surgeon, Dr. Garcia. He did ask for an image to be sent and this was done. He recommended admission for IV antibiotics and orthopedic consultation. Consultation was made with the [facility]. Case was discussed and diagnostics were reviewed. Patient was evaluated in the ER and admitted for further management. Care/management discussed with: none Level of care consideration(s): After review of the information above and other included data, I feel the patient requires further management in the hospital Triage Nursing notes: reviewed and agree them. Vital Signs: reviewed and remarkable for no significant abnormalities Additional History obtained from: none Chronic Medical/Social Conditions affecting care: Hypertension, obesity Prior/ Outside/ External records reviewed: none Differential Diagnosis: Foreign body, fracture, dislocation, joint compromise, infection, soft tissue injury, tendon injury, vascular compromise, compartment syndrome, as well as other pathologies. Diagnostics, independently interpreted by me: ECG: none Cardiac Monitoring: none Medical decision rules: none Imaging studies: X-ray imaging of the right HPI: 83 year old Female arrives for evaluation of right lower leg wound. Patient had an ORIF of a right ankle fracture dislocation at the end of June this year. She was seen by orthopedics on 03 August and states her sutures were removed. Patient has been wearing a boot for support. The suture area had opened and the facility had been treating the wound topically. The area became more red and swollen. Patient was referred back to the emergency department for concerns about wound infection. Pt denies headache, fevers, chills, chest pain, breathing difficulties, nausea, vomiting, abdominal pain, back pain, numbness, weakness, foot pain or other complaints. PAST MEDICAL HISTORY: See Below, hypertension PAST SURGICAL HISTORY: See Below, ORIF of right ankle SOCIAL HISTORY: See Below, retired HOME MEDICATIONS: See Below ALLERGIES: See Below VITALS: See Below PHYSICAL EXAMINATION: GENERAL: Awake, alert, well-appearing, in no distress HENT: Normocephalic, atraumatic. EYES: Normal conjunctiva. Sclera non-icteric. NECK: Inspection normal. Non-tender. Supple. No nuchal rigidity. FROM. No masses. RESPIRATORY: Clear to auscultation. No wheezes. No rales. Normal respiratory effort. CARDIAC: Normal rate. Normal rhythm. No murmurs. No rubs. Extremities warm and well perfused. Pulses equal. No JVD. GI: Soft, non-distended. No tenderness to palpation. No rebound or guarding. No masses. MUSCULOSKELETAL: There is an open wound on the distal lateral right lower leg. Surrounding erythema and tenderness. Granulation tissue and some mild purulence noted. No crepitus. No visible hardware. NEURO: Normal sensorium. No sensory or motor deficits noted. SKIN: No rash or jaundice noted. PROCEDURES: none CRITICAL CARE: none OBSERVATION NOTE: none Past Med/Surg History Medical History (Updated 08/16/23 @ 11:03 by ERINN Marrufo) Cough Depression Cellulitis Acute hip pain Nocturnal hypoxia Right-sided congestive heart failure Sacral insufficiency fracture Cor pulmonale (chronic) Lumbar stenosis with neurogenic claudication Chronic GERD Right heart failure Dependence on nocturnal oxygen therapy RADHA (obstructive sleep apnea) Dyslipidemia Morbid obesity with BMI of 40.0-44.9, adult Mitral valve prolapse Osteoporosis Chronic acquired lymphedema HTN (hypertension) Chronic back pain Surgical History Hx of cholecystectomy Status post lumbar spine surgery for decompression of spinal cord 2017 Dr. Wan Status post kyphoplasty L3, L4, L5 2018 Dr. 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 Beliefs That Will Affect Care: None marital status: Single Current Living Situation: Personal Care Facility Current Living Situation Comment: [facility] Feels Safe at Home: Yes Assistive Devices: Oxygen - at Night, Walker and Wheelchair Allergies Allergies Allergy/AdvReac Type Severity Reaction Status Date / Time demeclocycline Allergy Unknown ON Verified 07/12/23 19:36 [facility] sulfamethoxazole Allergy Unknown ON Verified 07/12/23 19:36 [facility] trimethoprim Allergy Unknown ON Verified 07/12/23 19:36 [facility] ropinirole AdvReac Intermediate fluid Verified 07/12/23 19:36 retention pregabalin [From Lyrica] AdvReac Mild Unknown Verified 07/12/23 19:36 Home Meds Home Medications Medication Instructions Recorded Confirmed aspirin 81 mg tablet,delayed 81 mg PO QAM 05/05/18 08/16/23 release omega 3-kpp-ham-fish oil 1,000 mg 1 cap PO TIDM 05/05/18 08/16/23 (120 mg-180 mg) capsule (Fish Oil) raloxifene 60 mg tablet 60 mg PO QAM osteoporosis 05/05/18 08/16/23 bumetanide 2 mg tablet 2 mg PO TIDM 12/30/19 08/16/23 docusate sodium 100 mg capsule 100 mg PO TIDM 12/30/19 08/16/23 fenofibrate 160 mg tablet 160 mg PO QDD 12/30/19 08/16/23 metolazone 2.5 mg tablet 2.5 mg PO 3XWK edema 12/30/19 08/16/23 omeprazole 40 mg capsule,delayed 40 mg PO DAILYBB 12/30/19 08/16/23 release dextromethorphan-guaifenesin 10 10 ml PO Q4H PRN Cough 03/16/22 08/16/23 mg-100 mg/5 mL oral liquid (Tussin DM) lorazepam 0.5 mg tablet 0.5 mg PO HS 03/16/22 08/16/23 potassium chloride 40 mEq/15 mL 40 meq PO ACHS 03/16/22 08/16/23 oral liquid psyllium husk 3 gram/5.4 gram oral 1 tbsp PO DAILY PRN Constipation 03/16/22 08/16/23 powder (Reguloid (psyllium husk)) vit C 250 mg-vit E 90 mg-zinc 40 1 tab PO BIDM 03/16/22 08/16/23 mg-copper 1 [id number]-xsyvgu capsule (PreserVision AREDS-2) atropine 1 % eye drops 1 drp OPR TID PRN Pain 07/12/23 08/16/23 betamethasone dipropionate 0.05 % 1 applic topical BID 07/12/23 08/16/23 topical cream escitalopram oxalate 10 mg tablet 10 mg PO QAM 07/12/23 08/16/23 ferrous sulfate 142 mg (45 mg 142 mg PO QAM 07/12/23 08/16/23 iron) tablet,extended release gabapentin 100 mg capsule 100 mg PO BIDM 07/12/23 08/16/23 guaifenesin 600 mg tablet, 600 mg PO BID PRN Congestion 07/12/23 08/16/23 extended release 12 hr (Mucus Relief ER) spironolactone 50 mg tablet See Rx Instructions .Route .COMPLEX 07/12/23 08/16/23 Previous Rx's Medication Instructions Recorded apixaban 2.5 mg tablet (Eliquis) 2.5 mg PO BID #60 tabs 07/18/23 calcium 600 mg-D3 800 unit-mag11 1 tab PO BID #60 tabs 07/18/23 50 tn-pwbn-dgeglz-olayinka-s.borat tablet (Caltrate 600-D Plus Minerals) Results & Data (ED) Vital Signs Vital Signs - 24 hr 08/16/23 07:17 08/16/23 07:31 08/16/23 09:00 Temperature 36.5 C Temperature Source Oral Pulse Rate 84 76 77 Pulse Rate from SpO2 Sensor 76 Respiratory Rate 24 13 Respiratory Effort / Characteristics Non-Labored Spontaneous Respiratory Depth Normal Respiratory Pattern Regular Blood Pressure 151/82 H 136/71 Blood Pressure Mean 105 92 Pulse Oximetry 97 97 Oxygen Delivery Method Room Air Room Air Sepsis Recent Fever Within 48 Hours No Sepsis New/Unexplained Change in Mental Status No Sepsis Action Taken by Nursing No Action Required Laboratory Data 08/16/23 07:25 08/16/23 07:25 Lab Results 08/16/23 08/16/23 08/16/23 Range/Units 07:25 08:25 09:57 WBC 5.11 (4.8-10.8) K/ul RBC 4.83 (4.20-5.40) M/uL Hgb 14.7 (12.0-16.0) g/dl Hct 44.5 (37.0-47.0) % MCV 92.1 (80.0-100.0) fL MCH 30.4 (25.0-34.0) pg MCHC 33.0 (32.0-36.0) g/dL RDW Std Deviation 52.1 H (36.4-46.3) fL RDW Coeff of Vicki 15.3 H (11.5-14.5) % Plt Count 328 (130-400) K/uL MPV 10.0 (9.4-12.4) fL Immature Gran % (Auto) 1.8 % Neut % (Auto) 61.0 % Lymph % (Auto) 27.8 % Toole % (Auto) 7.6 % Eos % (Auto) 1.0 % Baso % (Auto) 0.8 % Neut # (Auto) 3.12 (1.40-6.50) K/uL Lymph # (Auto) 1.42 (1.20-3.40) K/uL Toole # (Auto) 0.39 (0.11-0.59) K/uL Eos # (Auto) 0.05 (0.00-0.50) K/uL Baso # (Auto) 0.04 (0.00-0.20) K/uL Immature Gran # (Auto) 0.09 (0.01-0.20) K/uL ESR 66 H (0-30) mm/hr Sodium 135 L (136-145) mmol/L Potassium 4.2 (3.5-5.1) mmol/L Chloride 100 (98-107) mmol/L Carbon Dioxide 26 (21-32) mmol/L Anion Gap 9 (3-11) BUN 27 H (6-23) mg/dl Creatinine 0.96 (0.6-1.2) mg/dl Est Cr Clr Drug Dosing 47.3 ml/min Est GFR ( Amer) 62.9 ml/min Est GFR (Non-Af Amer) 54.3 ml/min BUN/Creatinine Ratio 28.1 H (10-20) Glucose 126 H (70-99(Fasting)) mg/dl Estimat Average Glucose 114 mg/dl Hemoglobin A1c 5.6 (4.5-5.6) % Lactate 2.1 H* 2.1 H* (0.4-2.0) mmol/L Calcium 10.3 (8.6-10.3) mg/dl Magnesium 2.0 (1.7-2.4) mg/dl Total Bilirubin 0.6 (0.2-1.0) mg/dl AST 20 (13-39) U/L ALT 12 (7-52) U/L Alkaline Phosphatase 65 (34-104) U/L Total Creatine Kinase 15 L (26-192) U/L C-Reactive Protein 1.80 H (0-0.5) mg/dl Total Protein 7.1 (6.0-8.3) gm/dl Albumin 3.9 (3.4-5.0) gm/dl Globulin 3.2 (2.5-4.0) gm/dl Albumin/Globulin Ratio 1.2 (0.9-2) Procalcitonin < 0.05 (0-0.5) ng/ml SARS-CoV-2, RNA, NAAT NEGATIVE (NEGATIVE) Administered Medications Sodium Chloride (Nss) 1,000 mls @ 125 mls/hr IV .Q8H [facility] Stop: 09/15/23 07:59 Last Admin: 08/16/23 08:27 Dose: 125 mls/hr Documented By: PREMA Daptomycin 500 mg/ Syringe 10 mls @ 5 mls/min IV Q24H [facility]; Protocol Stop: 08/18/23 08:14 Last Admin: 08/16/23 08:29 Dose: 5 mls/min Documented By: PREMA Discontinued Medications Sodium Chloride (Nss) 500 mls @ 999 mls/hr IV .Q31M ONE Stop: 08/16/23 08:23 Last Infusion: 08/16/23 08:56 Dose: Infused Documented By: Admin: 12/26/23 08:23 Dose: 999 mls/hr Documented By: PREMA Piperacillin Sod/Tazobactam Sod (Zosyn) 4.5 gm in 100 mls @ 200 mls/hr IV NOW ONE Stop: 08/16/23 08:37 Last Infusion: 08/16/23 08:58 Dose: Infused Documented By: Admin: 08/16/23 08:28 Dose: 200 mls/hr Documented By: PREMA Imaging Data Radiologist's Impression: Ankle X-Ray 08/16/23 07:25 XR ankle RT min 3V routine CLINICAL HISTORY: Post op wound dehiscence. COMPARISON: Right ankle radiographs July 12, 2023. Fluoroscopic images the right ankle July 13, 2023. FINDINGS: Plate and screw internal fixation of the right fibular fracture is noted. Hardware is intact. Fracture alignment appears anatomic. Partial interval healing of the distal fibular fracture is noted. There is also evidence for syndesmotic repair. No ankle mortise widening is noted. No acute fractures are present. Lateral ankle soft tissue swelling and soft tissue irregularity may reflect the wound. Slight irregularity of the medial malleolus is noted with a few tiny adjacent ossific densities, similar to prior study. IMPRESSION: 1. Status post open reduction and internal fixation of the right fibular fracture with syndesmotic repair. Hardware intact. No periprosthetic lucency. 2. Lateral ankle soft tissue swelling with possible wound. ACT 112: Negative or not required by law. Electronically signed by: Lan Wilcox M.D. 08/16/2023 8:02 AM Discharge Plan Visit Data Chief Complaint: Ankle Pain ED Provider: Dheeraj Whiting Discharge Problem: Open wound of right lower leg Patient Disposition: Admitted As Inpatient Discharge Instructions Interventions: ED Discharge Assessment Last Done: 08/16/23 12:24
[2023-08-16 07:41] LABS: Basophils # (auto) 0.04 K/uL (0.00-0.20); Basophils % (auto) 0.8 %; Eosinophils # (auto) 0.05 K/uL (0.00-0.50); Hematocrit (blood only) 44.5 % (37.0-47.0); Hemoglobin 14.7 g/dl (12.0-16.0); Immature Granulocytes # (auto) 0.09 K/uL (0.01-0.20); Immature Granulocytes % (auto) 1.8 %; Lymphocytes # (auto) 1.42 K/uL (1.20-3.40); Lymphocytes % (auto) 27.8 %; Mean Corpuscular Hemoglobin 30.4 pg (25.0-34.0); Mean Corpuscular Volume 92.1 fL (80.0-100.0); Monocytes # (auto) 0.39 K/uL (0.11-0.59); Monocytes % (auto) 7.6 %; Neutrophils # (auto) 3.12 K/uL (1.40-6.50); Platelet Count 328 K/uL (130-400); RDW Coefficient of Variation 15.3 % (11.5-14.5); RDW Standard Deviation 52.1 fL (36.4-46.3); Red Blood Count 4.83 M/uL (4.20-5.40); White Blood Count 5.11 K/ul (4.8-10.8)
[2023-08-16] MEDS ORDERED: SODIUM CHLORIDE 0.9% 500 ML IV ONE (07:53)
[2023-08-16 08:01] LABS: Albumin Globulin Ratio 1.2 (0.9-2); Albumin Level 3.9 gm/dl (3.4-5.0); BUN Creatinine Ratio 28.1 (10-20); Bilirubin,Total 0.6 mg/dl (0.2-1.0); C Reactive Protein 1.8 mg/dl (0-0.5); Calcium 10.3 mg/dl (8.6-10.3); Creatinine Clr Calc Pharmacy 47.3 ml/min; Est GFR (African American) 62.9 ml/min; Est GFR (Non-African American) 54.3 ml/min; Globulin 3.2 gm/dl (2.5-4.0); Potassium 4.2 mmol/L (3.5-5.1); Total Protein 7.1 gm/dl (6.0-8.3)
--- NOTE | 2023-08-16 08:04 | XRay Report ---
XR ankle RT min 3V routine CLINICAL HISTORY: Post op wound dehiscence. COMPARISON: Right ankle radiographs July 12, 2023. Fluoroscopic images the right ankle June 232022. FINDINGS: Plate and screw internal fixation of the right fibular fracture is noted. Hardware is inta ct. Fracture alignment appears anatomic. Partial interval healing of the distal fibular fracture is n oted. There is also evidence for syndesmotic repair. No ankle mortise widening is noted. No acute fra ctures are present. Lateral ankle soft tissue swelling and soft tissue irregularity may reflect the w ound. Slight irregularity of the medial malleolus is noted with a few tiny adjacent ossific densities , similar to prior study. IMPRESSION: 1. Status post open reduction and internal fixation of the right fibular fracture with syndesmotic re pair. Hardware intact. No periprosthetic lucency. 2. Lateral ankle soft tissue swelling with possible wound. ACT 112: Negative or not required by law. Electronically signed by: Lan Wilcox M.D. 08/16/2023 8:02 AM
[2023-08-16] MEDS ORDERED: PIPERACILLIN/TAZOBACTAM 4.5 GM/100 ML BAG IV ONE (08:08)
[2023-08-16] MEDS ORDERED: DAPTOmycin 500 MG in SYRINGE 0 ML IV SCH (08:15)
[2023-08-16] MEDS: SODIUM CHLORIDE 0.9% 1,000 ML IV SCH ×2 (08:27→17:51)
[2023-08-16] MEDS ORDERED: ONDANSETRON INJ 2 MG/ML 2 ML VIAL IV PRN (10:16)
[2023-08-16] MEDS ORDERED: MAGNESIUM HYDROXIDE SUSP 30 ML UDC PO PRN (10:16)
[2023-08-16] MEDS ORDERED: ALUMINUM/MAGNESIUM SUSP 30 ML UDC PO PRN (10:16)
[2023-08-16] MEDS ORDERED: POLYETHYLENE (MIRALAX) 17 GM PACK PO PRN (10:16)
--- NOTE | 2023-08-16 10:21 | History & Physical Report ---
Date of Service August 16, 2023 Assessment & Plan (1) Open wound of right lower leg: (2) Cellulitis: (3) HTN (hypertension): (4) Dyslipidemia: (5) RADHA (obstructive sleep apnea): (6) Morbid obesity with BMI of 40.0-44.9, adult: (7) Mitral valve prolapse: (8) Depression: (9) Cough: Plan Ms. Pool is an 83-year-old female that presented to the ER today with complaints of worsening right lower leg wound. Patient was admitted Novemb er until July 17 status post mechanical fall for which she sustained a fracture and underwent ORIF under the care of Dr. Garcia on 07/13. On 08/03 she was seen as an outpatient by orthopedics for suture removal and was having a hard time with her boot and was not mobilizing due to the restriction of the boot however has noticed some erythema and swelling with dehiscence around the surgical incision site. Incidentally, pt reports a intermittently productive cough that has been occurring for the past few weeks. Additional past medical history includes alopecia areata, amaurosis fugax, RLS, right rotator cuff tendinopathy, prediabetes, CKDIII, hypertension, chronic right CHF, HLD, and osteoporosis. No leukocytosis WBC 5.11, ESR slightly elevated 66, lactate minimally elevated at 2.1, no abnormalities otherwise with electrolytes. Patient is normotensive and no signs of sepsis. Most recent ECHO 02/2022: Normal LV chamber size with mild concentric LVH. EF 55-60%, no LV wall motion abnormalities, mild AV sclerosis. On examination, patient does not appear toxic however does have an open wound on the distal lateral right lower leg. Surrounding erythema and tenderness. Granulation tissue noted. Positive sensation and pedal pulse on right foot. On p.o. Eliquis postop. Admit for IV antibiotics, right ankle MRI, wound and sputum culture, chest x-ray, supportive treatment with Mucinex for cough, and Ortho consultation. Will keep patient n.p.o. after midnight tonight pending Ortho consult. Open wound of right lower leg: Cellulitis: Acute s/p ORIF right fibular fracture with syndesmotic repair on 07/13 08/03 seen by Ortho as outpatient suture removal has been using a boot Positive erythema/swelling with dehiscence ESR 66, serum CK ordered no leukocytosis, Lactate 2.1; will trend Ankle x-ray results: s/p ORIF right fibular fracture with syndesmotic repair. Hardware intact. No periprosthetic lucency. Lateral ankle soft tissue swelling with possible wound. Started on daptomycin plus Zosyn in ED; continue for now and adjust based on culture results Wound culture ordered MRI without contrast right ankle: 1. The examination is severely degraded by susceptibility artifact from a large buttress plate along the lateral cortex of the distal fibula. This entirely obscures the distal fibula and the majority of the overlying soft tissues. 2. There is a wound and soft tissue edema along the lateral aspect of the ankle. No organized fluid collection is seen to suggest abscess on this examination. 3. Plantar fasciitis. 4. Degenerative change at the tibiotalar articulation. 5. Tenosynovitis of the flexor hallucis longus tendon. Orthopedic consultation Cough: Acute CXR negative for acute cardiopulmonary disease Sputum culture ordered Mucinex p.o. every 12 ordered Chronic HFrEF: MVP: Chronic Takes spironolactone and Bumex; continue Takes Most recent ECHO 02/2022: Normal LV chamber size with mild concentric LVH. EF 55- 60%, no LV wall motion abnormalities, mild AV sclerosis. HLD: Chronic Continue fenofibrate Depression: Chronic Takes gabapentin and Lexapro; continue Prediabetes: Most recent A1c 05/14: 5.9; will recheck while here Increased risk for delayed wound healing GERD: Chronic Takes omeprazole; continue Disposition: PCP: Karen Galo CODE STATUS: DNR/DNI VTE prophylaxis: On Eliquis postop I spent a total of 87 minutes coordinating, documenting, and providing care for this patient excluding time spent in the performance of separately billed services. All of the aforementioned completed while collaborating with the assigned attending physician for a full treatment plan. Please see their addendum for further details. History of Present Illness Chief Complaint: leg wound Primary Care Provider: Karen Suarez Ms. Pool is an 83-year-old female that presented to the ER today with complaints of worsening right lower leg wound. Patient was admitted July 13 until July 17 status post mechanical fall for which she sustained a fracture and underwent ORIF under the care of Dr. Garcia. On 08/03 she was seen as an outpatient by orthopedics for suture removal and was having a hard time with her boot and was not mobilizing due to the restriction of the boot however has noticed some erythema and swelling with dehiscence around the surgical incision site. Incidentally, pt reports a intermittently productive cough that has been occurring for the past few weeks. Additional past medical history includes alopecia areata, amaurosis fugax, RLS, right rotator cuff tendinopathy, prediabetes, CKDIII, hypertension, chronic right CHF, HLD, and osteoporosis. In the ED no leukocytosis WBC 5.11, ESR slightly elevated 66, lactate minimally elevated at 2.1, no abnormalities otherwise with electrolytes. Patient is normotensive and no signs of sepsis. Most recent ECHO 02/2022: Normal LV chamber size with mild concentric LVH. EF 55-60%, no LV wall motion abnormalities, mild AV sclerosis. ED spoke with general surgery Dr. Garcia who suggested patient be admitted for IV antibiotics, right ankle MRI, wound and sputum culture, chest x-ray, supportive treatment with Mucinex for cough, and Ortho consultation. Will keep patient n.p.o. after midnight tonight pending Ortho consult. She denies OATES, dizziness, SOB, chest pain, palpitations, neuropathy, fevers, chills. Reports an ongoing cough as outlined above. Denies tobacco use, alcohol use, recreational drug use. Confirmed patient is DNR/DNI. On examination, patient does not appear toxic however does have an open wound on the distal lateral right lower leg. Surrounding erythema and tenderness. Granulation tissue noted. Positive sensation and pedal pulse on right foot. As outlined above does not appear toxic without fever and chills. On p.o. Eliquis postop. Patient will be admitted for further evaluation management. Please see A/P for further details. Allergies Allergy/AdvReac Type Severity Reaction Status Date / Time demeclocycline Allergy Unknown ON Verified 07/12/23 19:36 [facility] sulfamethoxazole Allergy Unknown ON Verified 07/12/23 19:36 [facility] trimethoprim Allergy Unknown ON Verified 07/12/23 19:36 [facility] ropinirole AdvReac Intermediate fluid Verified 07/12/23 19:36 retention pregabalin [From Lyrica] AdvReac Mild Unknown Verified 07/12/23 19:36 Home Medications Medication Instructions Recorded Confirmed Type aspirin 81 mg tablet,delayed 81 mg PO QAM 05/05/18 08/16/23 History release omega 7-iur-wac-fish oil 1,000 mg 1 cap PO TIDM 05/05/18 08/16/23 History (120 mg-180 mg) capsule (Fish Oil) raloxifene 60 mg tablet 60 mg PO QAM osteoporosis 05/05/18 08/16/23 History bumetanide 2 mg tablet 2 mg PO TIDM 12/30/19 08/16/23 History docusate sodium 100 mg capsule 100 mg PO TIDM 12/30/19 08/16/23 History fenofibrate 160 mg tablet 160 mg PO QDD 12/30/19 08/16/23 History metolazone 2.5 mg tablet 2.5 mg PO 3XWK edema 12/30/19 08/16/23 History omeprazole 40 mg capsule,delayed 40 mg PO DAILYBB 12/30/19 08/16/23 History release dextromethorphan-guaifenesin 10 10 ml PO Q4H PRN Cough 03/16/22 08/16/23 History mg-100 mg/5 mL oral liquid (Tussin DM) lorazepam 0.5 mg tablet 0.5 mg PO HS 03/16/22 08/16/23 History potassium chloride 40 mEq/15 mL 40 meq PO ACHS 03/16/22 08/16/23 History oral liquid psyllium husk 3 gram/5.4 gram oral 1 tbsp PO DAILY PRN Constipation 03/16/22 08/16/23 History powder (Reguloid (psyllium husk)) vit C 250 mg-vit E 90 mg-zinc 40 1 tab PO BIDM 03/16/22 08/16/23 History mg-copper 1 vt-xlufeu-wtfkxr capsule (PreserVision AREDS-2) atropine 1 % eye drops 1 drp OPR TID PRN Pain 07/12/23 08/16/23 History betamethasone dipropionate 0.05 % 1 applic topical BID 07/12/23 08/16/23 History topical cream escitalopram oxalate 10 mg tablet 10 mg PO QAM 07/12/23 08/16/23 History ferrous sulfate 142 mg (45 mg 142 mg PO QAM 07/12/23 08/16/23 History iron) tablet,extended release gabapentin 100 mg capsule 100 mg PO BIDM 07/12/23 08/16/23 History guaifenesin 600 mg tablet, 600 mg PO BID PRN Congestion 07/12/23 08/16/23 History extended release 12 hr (Mucus Relief ER) spironolactone 50 mg tablet See Rx Instructions .Route .COMPLEX 07/12/23 08/16/23 History apixaban 2.5 mg tablet (Eliquis) 2.5 mg PO BID #60 tabs 07/18/23 08/16/23 Rx calcium 600 mg-D3 800 unit-mag11 1 tab PO BID #60 tabs 07/18/23 08/16/23 Rx 50 sq-stgg-jzozmj-olayinka-s.borat tablet (Caltrate 600-D Plus Minerals) Past Med/Surg History Medical History (Updated 08/16/23 @ 11:03 by ERINN Marrufo) Cough Depression Cellulitis Acute hip pain Nocturnal hypoxia Right-sided congestive heart failure Sacral insufficiency fracture Cor pulmonale (chronic) Lumbar stenosis with neurogenic claudication Chronic GERD Right heart failure Dependence on nocturnal oxygen therapy RADHA (obstructive sleep apnea) Dyslipidemia Morbid obesity with BMI of 40.0-44.9, adult Mitral valve prolapse Osteoporosis Chronic acquired lymphedema HTN (hypertension) Chronic back pain Surgical History Hx of cholecystectomy Status post lumbar spine surgery for decompression of spinal cord 2017 Dr. Wan Status post kyphoplasty L3, L4, L5 2017 Dr. 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 Beliefs That Will Affect Care: None marital status: Single Current Living Situation: Personal Care Facility Current Living Situation Comment: [facility] Other Information That Helps Us Care for You: No Feels Safe at Home: Yes Safety Concerns: Feels Safe At This Time Assistive Devices: Glasses Review of Systems Review of Systems: Neuro: (-) Falls, trauma, slurred speech HEENT: (-) OATES, dizziness, dysphagia, visual or auditory changes CV: (-) CP, palpitations, swelling Resp: (-) SOB (+) productive cough GI: (-) appetite changes, N/V/D, bowel changes : (-) urinary changes Skin: (-) rashes (+) redness and swelling at right ankle surgical site Psych: (-) anxiety, depression Physical Exam Physical Exam: Neuro: AAOx4, PERRLA, no aphagia, memory changes, CNII-XII grossly intact HEENT: head normocephalic, moist mucus membranes CV: S1/S2, (-) M/G/R, (-) edema, cap refill < 3 seconds (+) R pedal pulse Resp: Lungs CTA in all almanza. On RA GI: Abdomen S/NT/ND, Ax4 bowel sounds, (-) CVA tenderness Musculoskeletal: 5/5 B/L UE strength, 5/5 B/L LE strength. Has been more sedentary post op. Skin: (-) rashes , (+) swelling and erythema right ankle at incision site. Psych: Flat, yet euthymic affect Results & Data Results & Data Vital Signs (Past 12 Hours) Vital Signs Temp Pulse Resp BP Pulse Ox O2 Del Method 08/16/23 09:00 77 13 136/71 97 Room Air 08/16/23 07:31 76 08/16/23 07:17 36.5 C 84 24 151/82 H 97 Room Air Laboratory Results Short CBC 08/16/23 Range/Units 07:25 WBC 5.11 (4.8-10.8) K/ul Hgb 14.7 (12.0-16.0) g/dl Hct 44.5 (37.0-47.0) % Plt Count 328 (130-400) K/uL BMP 08/16/23 07:25 Sodium 135 L Potassium 4.2 Chloride 100 Carbon Dioxide 26 BUN 27 H Creatinine 0.96 Glucose 126 H Calcium 10.3 Liver Function 08/16/23 Range/Units 07:25 Total Bilirubin 0.6 (0.2-1.0) mg/dl AST 20 (13-39) U/L ALT 12 (7-52) U/L Alkaline Phosphatase 65 (34-104) U/L Albumin 3.9 (3.4-5.0) gm/dl Diagnostic Findings Ankle X-Ray 08/16/23 07:25 XR ankle RT min 3V routine CLINICAL HISTORY: Post op wound dehiscence. COMPARISON: Right ankle radiographs July 12, 2023. Fluoroscopic images the right ankle July 13, 2023. FINDINGS: Plate and screw internal fixation of the right fibular fracture is noted. Hardware is intact. Fracture alignment appears anatomic. Partial interval healing of the distal fibular fracture is noted. There is also evidence for syndesmotic repair. No ankle mortise widening is noted. No acute fractures are present. Lateral ankle soft tissue swelling and soft tissue irregularity may reflect the wound. Slight irregularity of the medial malleolus is noted with a few tiny adjacent ossific densities, similar to prior study. IMPRESSION: 1. Status post open reduction and internal fixation of the right fibular fracture with syndesmotic repair. Hardware intact. No periprosthetic lucency. 2. Lateral ankle soft tissue swelling with possible wound. ACT 112: Negative or not required by law. Electronically signed by: Lan Wilcox M.D. 08/16/2023 8:02 AM Code Status & VTE Plan Code Status DNR/DNI in the event of cardiac or respiratory arrest; confirmed with patient VTE Prophylaxis Plan VTE Prophylaxis will be ordered: Yes Supervising Physician Co-Signing Physician Notes I have seen and discussed the case with the collaborating EMPLOYMENT COORDINATOR. I agree with the above H&P. I have reviewed and confirmed the patients medical history, the findings on physical examination, and the patients diagnosis and treatment plan with Alisha PLASENCIA and agree with the information documented. In short, Ms. Clement is a alopecia areata, amaurosis fugax, RLS, right rotator cuff tendinopathy, prediabetes, CKDIII, hypertension, chronic right CHF, HLD, and osteoporosis who is being admitted due to concern of wound dehiscence with overlying cellulitis. Physical Exam notable for a calm woman, AOx4, does not appear septic. RLE with notable open area with diameter roughly 1-2" open over surgical sight, slight drainage noted, no odor, positive surrounding erythema, no joint tenderness. Plan #Surgical Wound dehiscence #Cellulitis -Dapto, Zosyn -MRI pending -Ortho consult, NPO incase wash-out Rest of plan as above.
[2023-08-16 10:58] LABS: Estimated Average Glucose 114 mg/dl; Hemoglobin A1C 5.6 % (4.5-5.6)
--- NOTE | 2023-08-16 11:03 | XRay Report ---
XR chest 1V portable HISTORY: 83 years-old Female cough acute cough COMPARISON: 07/13/2023 TECHNIQUE: AP view of the chest FINDINGS: Cardiac silhouette is enlarged. Atherosclerosis of aorta. Unchanged mild right hemidiaphragmatic elev ation. No pneumothorax, pleural effusion or airspace consolidation. Degenerative changes of the shoul ders and spine. IMPRESSION: No acute process. ACT 112: Negative or not required by law. The above report was generated using voice recognition software. It may contain grammatical, syntax o r spelling errors. Electronically signed by: Tulio Leroy M.D. 08/16/2023 11:01 AM
--- NOTE | 2023-08-16 13:10 | Magnetic Resonance Report ---
MRI OF THE RIGHT ANKLE WITHOUT IV CONTRAST CLINICAL HISTORY: Wound infection. COMPARISON STUDY: Radiographs of the right ankle dated 08/16/2023. TECHNIQUE: MRI of the right ankle was performed utilizing various T1 and T2-weighted sequences in the axial, sagittal, and coronal planes. IV contrast was not administered for this examination. The exam ination is severely degraded by susceptibility artifact from a buttress plate along the distal fibula r cortex. FINDINGS: There is soft tissue edema along the lateral aspect of the ankle with an overlying wound. T he distal fibula and overlying soft tissues are otherwise not evaluated due to susceptibility artifac t from a buttress plate along the lateral cortex of the distal fibula. There is no evidence of fluid collection on the provided images. There is also susceptibility artifact from metallic plate along th e lateral aspect of the distal tibia. There is no MRI evidence of acute fracture on the acquired sequ ences. The ankle mortise is intact. Mild degenerative change is seen along the posterior aspect of th e articular surface of the distal tibia. There is no significant joint effusion. The Achilles tendon is normal in morphology and signal intensity. The anterior, posterior, and peroneal tendons appear in tact. There is tenosynovitis of the flexor hallucis longus tendon, best seen on coronal image #15. Th e anterior tibiofibular and talofibular ligaments cannot be assessed due to susceptibility artifact. There is evidence of a nonspecific myositis of the regional musculature. There is plantar fasciitis a t the calcaneal attachment of the plantar fascia, lateral greater than medial. Imaged portions of the plantar fascia appear intact. IMPRESSION: 1. The examination is severely degraded by susceptibility artifact from a large buttress plate along the lateral cortex of the distal fibula. This entirely obscures the distal fibula and the majority of the overlying soft tissues. 2. There is a wound and soft tissue edema along the lateral aspect of the ankle. No organized fluid c ollection is seen to suggest abscess on this examination. 3. Plantar fasciitis. 4. Degenerative change at the tibiotalar articulation. 5. Tenosynovitis of the flexor hallucis longus tendon. Dictated: 08/16/2023 12:19 PM Transcribed: 08/16/2023 12:40 PM Dionne [id number] Edilberto [id number] Electronically signed by: Felipe Perera M.D. 08/16/2023 1:09 PM
[2023-08-16] MEDS: guaiFENesin 600 MG TABCR PO SCH ×2 (13:18→21:40)
[2023-08-16] MEDS: DOCUSATE SODIUM 100 MG CAP PO SCH ×2 (13:19→17:45)
[2023-08-16] MEDS: SPIRONOLACTONE 25 MG TAB PO SCH ×2 (13:19→17:44)
[2023-08-16] MEDS: POTASSIUM CHLORIDE CRTAB 20 MEQ TABCR PO SCH ×3 (13:20→21:40)
[2023-08-16] MEDS: BUMETANIDE 1 MG TAB PO SCH ×2 (13:20→17:44)
[2023-08-16] MEDS: PIPERACILLIN/TAZOBACTAM 4.5 GM in DEXTROSE 5% MINI-B 100 ML IV SCH ×2 (13:23→21:41)
[2023-08-16] MEDS: ACETAMINOPHEN 325 MG TAB PO PRN (14:34)
[2023-08-16] MEDS: FENOFIBRATE~ORDER AWAITING ACTION SCH ×2 (17:41→23:15)
[2023-08-16] MEDS: GABAPENTIN 100 MG CAP PO SCH (17:45)
[2023-08-16] MEDS: CEROVITE ADV FORMULA TAB PO SCH (21:40)
[2023-08-16] MEDS: LORazepam 0.5 MG TAB PO SCH (21:40)
[2023-08-16] MEDS: APIXABAN 2.5 MG TAB PO SCH (21:40)
[2023-08-17] MEDS: SODIUM CHLORIDE 0.9% 1,000 ML IV SCH ×2 (01:21→08:53)
[2023-08-17] MEDS: PIPERACILLIN/TAZOBACTAM 4.5 GM in DEXTROSE 5% MINI-B 100 ML IV SCH ×3 (05:01→20:10)
[2023-08-17] MEDS: PANTOprazole 40 MG TAB PO SCH (06:02)
[2023-08-17 06:51] LABS: Hematocrit (blood only) 39.3 % (37.0-47.0); Hemoglobin 12.5 g/dl (12.0-16.0); Mean Corpuscular Hemoglobin 29.8 pg (25.0-34.0); Mean Corpuscular Hgb Conc 31.8 g/dL (32.0-36.0); Mean Corpuscular Volume 93.6 fL (80.0-100.0); Mean Platelet Volume 10.1 fL (9.4-12.4); Platelet Count 341 K/uL (130-400); RDW Coefficient of Variation 15.4 % (11.5-14.5); RDW Standard Deviation 52.6 fL (36.4-46.3); White Blood Count 4.17 K/ul (4.8-10.8)
[2023-08-17 07:14] LABS: Albumin Globulin Ratio 1.2 (0.9-2); Albumin Level 3.2 gm/dl (3.4-5.0); BUN Creatinine Ratio 25.3 (10-20); Bilirubin,Total 0.5 mg/dl (0.2-1.0); Calcium 9.2 mg/dl (8.6-10.3); Creatinine Clr Calc Pharmacy 54.7 ml/min; Est GFR (African American) 75.1 ml/min; Est GFR (Non-African American) 64.8 ml/min; Globulin 2.6 gm/dl (2.5-4.0); Potassium 3.4 mmol/L (3.5-5.1); Total Protein 5.8 gm/dl (6.0-8.3)
[2023-08-17] MEDS ORDERED: D5W AND NSS 1,000 ML IV SCH (08:15)
[2023-08-17] MEDS: BUMETANIDE 1 MG TAB PO SCH (08:30)
[2023-08-17] MEDS: POTASSIUM CHLORIDE CRTAB 20 MEQ TABCR PO SCH (08:30)
[2023-08-17] MEDS: DOCUSATE SODIUM 100 MG CAP PO SCH ×3 (08:30→16:13)
[2023-08-17] MEDS: CEROVITE ADV FORMULA TAB PO SCH ×2 (08:31→16:44)
[2023-08-17] MEDS: guaiFENesin 600 MG TABCR PO SCH ×2 (08:31→20:09)
[2023-08-17] MEDS: FENOFIBRATE~ORDER AWAITING ACTION SCH ×3 (08:31→23:48)
[2023-08-17] MEDS: FERROUS SULFATE 325 MG TAB PO SCH (08:31)
[2023-08-17] MEDS: RALOXIFENE HCL 60 MG TAB PO SCH (08:31)
[2023-08-17] MEDS: DAPTOmycin 425 MG in SYRINGE 0 ML IV SCH (08:40)
[2023-08-17] MEDS: ESCITALOPRAM OXALATE 10 MG TAB PO SCH (08:54)
[2023-08-17] MEDS: GABAPENTIN 100 MG CAP PO SCH ×2 (08:54→16:43)
[2023-08-17] MEDS ORDERED: POTASSIUM CHLORIDE CRTAB 20 MEQ TABCR PO STA (10:55)
--- NOTE | 2023-08-17 10:56 | Hospitalist Progress Note ---
Date of Service August 17, 2023 Assessment & Plan (1) Open wound of right lower leg: (2) Cellulitis: (3) HTN (hypertension): (4) Dyslipidemia: (5) RADHA (obstructive sleep apnea): (6) Morbid obesity with BMI of 40.0-44.9, adult: (7) Mitral valve prolapse: (8) Depression: (9) Cough: Plan Ms. Pool is an 83-year-old female that presented to the ER today with complaints of worsening right lower leg wound. Patient was admitted Novemb er until July 17 status post mechanical fall for which she sustained a fracture and underwent ORIF under the care of Dr. Garcia on 07/13. On 08/03 she was seen as an outpatient by orthopedics for suture removal and was having a hard time with her boot and was not mobilizing due to the restriction of the boot however has noticed some erythema and swelling with dehiscence around the surgical incision site. Incidentally, pt reports a intermittently productive cough that has been occurring for the past few weeks. Additional past medical history includes alopecia areata, amaurosis fugax, RLS, right rotator cuff tendinopathy, prediabetes, CKDIII, hypertension, chronic right CHF, HLD, and osteoporosis. No leukocytosis WBC 5.11, ESR slightly elevated 66, lactate minimally elevated at 2.1, no abnormalities otherwise with electrolytes. Patient is normotensive and no signs of sepsis. Most recent ECHO 02/2022: Normal LV chamber size with mild concentric LVH. EF 55-60%, no LV wall motion abnormalities, mild AV sclerosis. On examination, patient does not appear toxic however does have an open wound on the distal lateral right lower leg. Surrounding erythema and tenderness. Granulation tissue noted. Positive sensation and pedal pulse on right foot. On p.o. Eliquis postop. Admit for IV antibiotics, right ankle MRI, wound and sputum culture, chest x-ray, supportive treatment with Mucinex for cough, and Ortho consultation. Will keep patient n.p.o. after midnight tonight pending Ortho consult. Postoperative infection to the right lower extremity ORIF hardware (deep) Postoperative wound infection RLE (superficial) Open wound of right lower leg: Cellulitis: Acute s/p ORIF right fibular fracture with syndesmotic repair on 07/13 08/03 seen by Ortho as outpatient suture removal has been using a boot Positive erythema/swelling with dehiscence ESR 66, serum CK ordered no leukocytosis, Lactate 2.1; will trend Ankle x-ray results: s/p ORIF right fibular fracture with syndesmotic repair. Hardware intact. No periprosthetic lucency. Lateral ankle soft tissue swelling with possible wound. Started on daptomycin plus Zosyn in ED; continue for now and adjust based on culture results Wound culture ordered MRI without contrast right ankle: 1. The examination is severely degraded by susceptibility artifact from a large buttress plate along the lateral cortex of the distal fibula. This entirely obscures the distal fibula and the majority of the overlying soft tissues. 2. There is a wound and soft tissue edema along the lateral aspect of the ankle. No organized fluid collection is seen to suggest abscess on this examination. 3. Plantar fasciitis. 4. Degenerative change at the tibiotalar articulation. 5. Tenosynovitis of the flexor hallucis longus tendon. Orthopedic consultation 08/17 ID consulted Recommending debridement, CT with contrast Continue daptomycin plus Zosyn Probiotics daily Ortho consulted-no plans for debridement at this point, continue wound care Wound care consulted Cough: Acute CXR negative for acute cardiopulmonary disease Sputum culture ordered Mucinex p.o. every 12 ordered Currently on daptomycin plus Zosyn Chronic HFrEF: MVP: Chronic Takes spironolactone and Bumex; continue Takes Most recent ECHO 02/2022: Normal LV chamber size with mild concentric LVH. EF 55- 60%, no LV wall motion abnormalities, mild AV sclerosis. 08/17 Hold diuretics for today in light of CT with IV contrast being ordered HLD: Chronic Continue fenofibrate Depression: Chronic Takes gabapentin and Lexapro; continue Prediabetes: Most recent A1c 05/14: 5.9; will recheck while here Increased risk for delayed wound healing GERD: Chronic Takes omeprazole; continue Disposition: PCP: Karen Galo CODE STATUS: DNR/DNI VTE prophylaxis: On Eliquis postop Admission and Anticipated Discharge Date Admission Date: August 16, 2023 Subjective Follow-up for right ankle infection, etc. Seen sitting up in bed, comfortable, not distressed States she feels fine overall Denies pain over the right foot No fevers or chills no chest pain, dyspnea, palpitations, dizziness Review of Systems Review of Systems: all noted and negative except for above Physical Exam Physical Exam: General- oriented x 3, not in distress, speaks in sentences with no effort or accessory muscle use Eyes- anicteric Neck- no JVD Lungs- clear breath sounds bilaterally, no rales/wheezes Heart- normal rate, regular rhythm; no murmurs Abdomen- normal bowel sounds, nondistended, soft, nontender Extremities- no pretibial edema, no calf tenderness Right foot: Ankle, lateral aspect-open wound, with small amount of yellow drainage, surrounding mild erythema, no tenderness Neuro- alert, oriented x 3; no gross focal neurologic deficits Skin- warm & dry Results & Data Results & Data Vital Signs (Past 12 Hours) Vital Signs Temp Pulse Resp BP Pulse Ox O2 Del Method 08/17/23 07:55 36.7 C 72 18 113/70 95 Room Air all noted and reviewed including below
[2023-08-17] MEDS: ADVANCED PROBIOTIC 1250 MG CAPSULE PO SCH (11:22)
--- NOTE | 2023-08-17 15:39 | Orthopedic Consultation ---
Date of Consultation August 17, 2023 Assessment & Plan (1) Open wound of right lower le-year-old female with right ankle wound -Discontinue cam boot, able to toe-touch weight-bear with a walker on the right lower extremity -Follow-up wound cultures -IV antibiotics per ID Rec -Medical management -Recommend continued wound care. Will plan to continue antibiotics and tailor based on cultures. History of Present Illness Reason for Consultation: Right ankle wound Attending Physician: Dennis Montero MD History of Present Illness 83-year-old female who underwent right distal fibula ORIF approximately 5 weeks ago presenting with a wound overlying the right lateral aspect of her ankle. Wounds over the more mid to proximal aspect of her incision. She has been wearing a cam boot. She admits that she has been weightbearing on her right lower extremity. In the emergency room cultures were obtained. Patient was ad mitted to medical service and orthopedics was consulted. Allergies Allergy/AdvReac Type Severity Reaction Status Date / Time demeclocycline Allergy Unknown ON Verified 07/12/23 19:36 [facility] sulfamethoxazole Allergy Unknown ON Verified 07/12/23 19:36 [facility] trimethoprim Allergy Unknown ON Verified 07/12/23 19:36 [facility] ropinirole AdvReac Intermediate fluid Verified 07/12/23 19:36 retention pregabalin [From Lyrica] AdvReac Mild Unknown Verified 07/12/23 19:36 Home Medications Medication Instructions Recorded Confirmed Type aspirin 81 mg tablet,delayed 81 mg PO QAM 05/05/18 08/16/23 History release omega 5-ilt-fne-fish oil 1,000 mg 1 cap PO TIDM 05/05/18 08/16/23 History (120 mg-180 mg) capsule (Fish Oil) raloxifene 60 mg tablet 60 mg PO QAM osteoporosis 05/05/18 08/16/23 History bumetanide 2 mg tablet 2 mg PO TIDM 12/30/19 08/16/23 History docusate sodium 100 mg capsule 100 mg PO TIDM 12/30/19 08/16/23 History fenofibrate 160 mg tablet 160 mg PO QDD 12/30/19 08/16/23 History metolazone 2.5 mg tablet 2.5 mg PO 3XWK edema 12/30/19 08/16/23 History omeprazole 40 mg capsule,delayed 40 mg PO DAILYBB 12/30/19 08/16/23 History release dextromethorphan-guaifenesin 10 10 ml PO Q4H PRN Cough 03/16/22 08/16/23 History mg-100 mg/5 mL oral liquid (Tussin DM) lorazepam 0.5 mg tablet 0.5 mg PO HS 03/16/22 08/16/23 History potassium chloride 40 mEq/15 mL 40 meq PO ACHS 03/16/22 08/16/23 History oral liquid psyllium husk 3 gram/5.4 gram oral 1 tbsp PO DAILY PRN Constipation 03/16/22 08/16/23 History powder (Reguloid (psyllium husk)) vit C 250 mg-vit E 90 mg-zinc 40 1 tab PO BIDM 03/16/22 08/16/23 History mg-copper 1 vg-dqzrgu-emppep capsule (PreserVision AREDS-2) atropine 1 % eye drops 1 drp OPR TID PRN Pain 07/12/23 08/16/23 History betamethasone dipropionate 0.05 % 1 applic topical BID 07/12/23 08/16/23 History topical cream escitalopram oxalate 10 mg tablet 10 mg PO QAM 07/12/23 08/16/23 History ferrous sulfate 142 mg (45 mg 142 mg PO QAM 07/12/23 08/16/23 History iron) tablet,extended release gabapentin 100 mg capsule 100 mg PO BIDM 07/12/23 08/16/23 History guaifenesin 600 mg tablet, 600 mg PO BID PRN Congestion 07/12/23 08/16/23 History extended release 12 hr (Mucus Relief ER) spironolactone 50 mg tablet See Rx Instructions .Route .COMPLEX 07/12/2308/16 History apixaban 2.5 mg tablet (Eliquis) 2.5 mg PO BID #60 tabs 07/18/23 08/16/23 Rx calcium 600 mg-D3 800 unit-mag11 1 tab PO BID #60 tabs 07/18/23 08/16/23 Rx 50 qz-otaz-lkpktm-olayinka-s.borat tablet (Caltrate 600-D Plus Minerals) Patient History Medical History (Updated 12/27/23 @ 00:04 by Background Sadie) Cough Depression Cellulitis Acute hip pain Nocturnal hypoxia Right-sided congestive heart failure Sacral insufficiency fracture Cor pulmonale (chronic) Lumbar stenosis with neurogenic claudication Chronic GERD Right heart failure Dependence on nocturnal oxygen therapy RADHA (obstructive sleep apnea) Dyslipidemia Morbid obesity with BMI of 40.0-44.9, adult Mitral valve prolapse Osteoporosis Chronic acquired lymphedema HTN (hypertension) Chronic back pain Surgical History Hx of cholecystectomy Status post lumbar spine surgery for decompression of spinal cord 2017 Dr. Wan Status post kyphoplasty L3, L4, L5 2018 Dr. Wan Status post tonsillectomy Status post cataract surgery Status post appendectomy Family History Father Family history of colon cancer Brother Family history of prostate cancer Brother Family history of coronary artery disease Sister Family history of coronary artery disease Brother Family history of diabetes mellitus Social History Smoking Status: Never smoker Second Hand Exposure: No; Do You Dip or Chew Tobacco: No; Hx Alcohol Use: No Hx Substance Use: No Preferred Language: Frisian Communication Ability: Effective It Analyst Required: No Beliefs That Will Affect Care: None marital status: Single Current Living Situation: Personal Care Facility Current Living Situation Comment: [facility] Other Information That Helps Us Care for You: No Feels Safe at Home: Yes Safety Concerns: Feels Safe At This Time Assistive Devices: Oxygen - at Night, Walker and Wheelchair Physical Exam Constitutional: No acute distress resting comfortably bed Musculoskeletal: Right lower extremity -Approximate 2 and half centimeter wound overlying the left distal fibula. There is no active drainage present. Plate is not exposed. There are some slight granulation tissue noted. There is some surrounding erythema present. - silt spn/dpn/t/s - fires ta/ehl/gsc + dp/pt Results & Data Vital Signs (Past 12 Hours) Vital Signs Temp Pulse Resp BP Pulse Ox O2 Del Method 08/17/23 14:41 36.7 C 76 16 142/77 H 95 Room Air 08/17/23 07:55 36.7 C 72 18 113/70 95 Room Air Diagnostic Findings Radiographs demonstrate hardware to be in satisfactory position with no evidence of subsidence or loosening. MRI of the right ankle does not demonstrate any evidence of osteomyelitis or abscess
--- NOTE | 2023-08-17 15:48 | Infectious Disease Consult ---
Date of Service August 17, 2023 Telehealth Information I performed this visit using a real-time telehealth connection between my location and the patients location ([facility]). After connecting through interactive tele-video, patient was identified by name and date of and/or wristband check.Patient (or authorized healthcare sales representative jewelry) was informed that this was a telemedicine visit and it was being conducted confidentially over secure lines. My office door was closed and no one else was present in the room with me.Patient (or authorized healthcare sales representative jewelry) provided consent to proceed with the visit, expressed an understanding of privacy and security of the telemedicine visit, and gave permission to have a hospital sales representative jewelry in the room in order to assist with the visit and to conduct portions of the visit, as needed. I informed the patient (or authorized healthcare sales representative jewelry) that I reviewed their record and presented the opportunity for them to ask any questions regarding the visit today. The patient agreed to participate. Assessment & Plan (1) Surgical site infection: (2) Open wound, lower leg: (3) Status post ORIF of fracture of ankle: (4) Retained orthopedic hardware: Plan - Surgical site infection at the upper edge of the old surgical wound, just above the lateral malleolus. With fixation hardware in place, I will have to assume hardware infection. The wound cx obtained is superficial and is thus unreliable and might not reflect organisms deep in the wound; therefore, she will need to be seen by orthopedic for possible surgical intervention and obtaining deep wound cultures. The patient will require a long course of antibiotics and giving her antibiotics blindly at this age will only expose her to unnecessary side effects. I would recommend holding antibiotics for now especially with no local cellulitis and no systemic symptoms and hemodynamic stability. - Since the MRI was degraded, please obtain CT scan of the ankle with contrast if possible. - We will F/U on the CT scan results and cultures (especially those to be obtained during debridement) and decide on the final antibiotic plan. - Thank you for consulting ID. We will continue to follow. History of Present Illness History of Present Illness Ms. Clement is a 83 yo woman with medical Hx of HTN, morbid obesity, dyslipidemia, obstructive sleep apnea, major depressive disorder and mitral valve prolapse was admitted to [facility] on 08/16/2023 because of concerns of infected leg wound. Late June 2023, she sustained a fracture of the right lower fibula and underwent open reduction internal fixation on 07/13/2023. The patient mentioned that she was prescribed a boot for support which has been rubbing against her surgical wound. Shortly after removing the sutures around mid July 2023, she started having an opening at the upper edge of the surgical wound which has been getting worse with some pustular drainage over the last few days which prompted her to come to the emergency department. On presentation, her vitals were within normal limits. X-ray of the right ankle showed that right fibular fractures with syndesmotic repair with intact hardware and lateral ankle soft tissue swelling. MRI was performed which was severely degraded especially because of the plate along the lateral cortex of the distal fibula. It showed skin wound and soft tissue edema along the lateral aspect of the ankle without any abscess. It further demonstrated plantar fasciitis, and tenosynovitis of the flexor hallucis longus tendon. Superficial wound culture was obtained in the emergency department which so far is growing gram-negative bacilli. ID team was consulted for further recommendations and to help with antibiotic management. Allergies Allergy/AdvReac Type Severity Reaction Status Date / Time demeclocycline Allergy Unknown ON Verified 07/12/23 19:36 [facility] sulfamethoxazole Allergy Unknown ON Verified 07/12/23 19:36 [facility] trimethoprim Allergy Unknown ON Verified 07/12/23 19:36 [facility] ropinirole AdvReac Intermediate fluid Verified 07/12/23 19:36 retention pregabalin [From Lyrica] AdvReac Mild Unknown Verified 07/12/23 19:36 Home Medications Medication Instructions Recorded Confirmed Type aspirin 81 mg tablet,delayed 81 mg PO QAM 05/05/18 08/16/23 History release omega 7-vpm-mng-fish oil 1,000 mg 1 cap PO TIDM 05/05/18 08/16/23 History (120 mg-180 mg) capsule (Fish Oil) raloxifene 60 mg tablet 60 mg PO QAM osteoporosis 05/05/18 08/16/23 History bumetanide 2 mg tablet 2 mg PO TIDM 12/30/19 08/16/23 History docusate sodium 100 mg capsule 100 mg PO TIDM 12/30/19 08/16/23 History fenofibrate 160 mg tablet 160 mg PO QDD 12/30/19 08/16/23 History metolazone 2.5 mg tablet 2.5 mg PO 3XWK edema 12/30/19 08/16/23 History omeprazole 40 mg capsule,delayed 40 mg PO DAILYBB 12/30/19 08/16/23 History release dextromethorphan-guaifenesin 10 10 ml PO Q4H PRN Cough 03/16/22 08/16/23 History mg-100 mg/5 mL oral liquid (Tussin DM) lorazepam 0.5 mg tablet 0.5 mg PO HS 03/16/22 08/16/23 History potassium chloride 40 mEq/15 mL 40 meq PO ACHS 03/16/22 08/16/23 History oral liquid psyllium husk 3 gram/5.4 gram oral 1 tbsp PO DAILY PRN Constipation 03/16/22 08/16/23 History powder (Reguloid (psyllium husk)) vit C 250 mg-vit E 90 mg-zinc 40 1 tab PO BIDM 03/16/22 08/16/23 History mg-copper 1 bu-tvvpht-rluhdb capsule (PreserVision AREDS-2) atropine 1 % eye drops 1 drp OPR TID PRN Pain 07/12/23 08/16/23 History betamethasone dipropionate 0.05 % 1 applic topical BID 07/12/23 08/16/23 History topical cream escitalopram oxalate 10 mg tablet 10 mg PO QAM 07/12/23 08/16/23 History ferrous sulfate 142 mg (45 mg 142 mg PO QAM 07/12/23 08/16/23 History iron) tablet,extended release gabapentin 100 mg capsule 100 mg PO BIDM 07/12/23 08/16/23 History guaifenesin 600 mg tablet, 600 mg PO BID PRN Congestion 07/12/23 08/16/23 History extended release 12 hr (Mucus Relief ER) spironolactone 50 mg tablet See Rx Instructions .Route .COMPLEX 07/12/23 08/16/23 History apixaban 2.5 mg tablet (Eliquis) 2.5 mg PO BID #60 tabs 07/18/23 08/16/23 Rx calcium 600 mg-D3 800 unit-mag11 1 tab PO BID #60 tabs 07/18/23 08/16/23 Rx 49 yo-uiyc-kuopnr-olayinka-s.borat tablet (Caltrate 600-D Plus Minerals) Patient History Medical History (Updated 08/17/23 @ 16:11 by Tony Baird MD) Cough Depression Cellulitis Acute hip pain Nocturnal hypoxia Right-sided congestive heart failure Sacral insufficiency fracture Cor pulmonale (chronic) Lumbar stenosis with neurogenic claudication Chronic GERD Right heart failure Dependence on nocturnal oxygen therapy RADHA (obstructive sleep apnea) Dyslipidemia Morbid obesity with BMI of 40.0-44.9, adult Mitral valve prolapse Osteoporosis Chronic acquired lymphedema HTN (hypertension) Chronic back pain Surgical History (Updated 08/17/23 @ 16:02 by Tony Baird MD) Hx of cholecystectomy Status post lumbar spine surgery for decompression of spinal cord 2017 Dr. Wan Status post kyphoplasty L3, L4, L5 2018 Dr. Wan Status post tonsillectomy Status post cataract surgery Status post appendectomy Family History Father Family history of colon cancer Brother Family history of prostate cancer Brother Family history of coronary artery disease Sister Family history of coronary artery disease Brother Family history of diabetes mellitus Social History Smoking Status: Never smoker Second Hand Exposure: No; Do You Dip or Chew Tobacco: No; Hx Alcohol Use: No Hx Substance Use: No Preferred Language: Kittitian Communication Ability: Effective Adolescent Medicine Specialist Required: No Beliefs That Will Affect Care: None marital status: Single Current Living Situation: Personal Care Facility Current Living Situation Comment: [facility] Other Information That Helps Us Care for You: No Feels Safe at Home: Yes Safety Concerns: Feels Safe At This Time Assistive Devices: Oxygen - at Night, Walker and Wheelchair Review of Systems Constitutional: No fatigue and no fever HEENT: no sore throat, no nasal discharge Cardiovascular: no chest pain, or palpitations Respiratory: no shortness of breath, no cough Gastrointestinal: No nausea, vomiting, diarrhea or abdominal pain : No dysuria or hesitancy, no urinary discharge Musculoskeletal/Skin: Rt ankle wound Neurologic: no dizziness, headache or neck stiffness Physical Exam Couldn't be obtained as the consult was performed via telemed Results & Data Vital Signs (Past 12 Hours) Vital Signs Temp Pulse Resp BP Pulse Ox O2 Del Method 08/17/23 14:41 36.7 C 76 16 142/77 H 95 Room Air 08/17/23 07:55 36.7 C 72 18 113/70 95 Room Air Laboratory Results MICROBIOLOGY: 08/16: 2 sets of blood Cx NTD 08/16: superficial Rt ankle wound culture growing gram neg bacilli (gram stain with rare PMNs, rare epithelial cells, few gram pos cocci and rare gram neg bacilli) Diagnostic Findings MRI of the ankle on 08/16: 1. The examination is severely degraded by susceptibility artifact from a large buttress plate along the lateral cortex of the distal fibula. This entirely obscures the distal fibula and the majority of the overlying soft tissues. 2. There is a wound and soft tissue edema along the lateral aspect of the ankle. No organized fluid collection is seen to suggest abscess on this examination. 3. Plantar fasciitis. 4. Degenerative change at the tibiotalar articulation. 5. Tenosynovitis of the flexor hallucis longus tendon. (2) Open wound, lower leg Encounter type: initial encounter Laterality: right Qualified Code(s): S81.801A - Unspecified open wound, right lower leg, initial encounter
[2023-08-17] MEDS: SPIRONOLACTONE 25 MG TAB PO SCH (16:41)
[2023-08-17] MEDS ORDERED: OPTIRAY 320 500ml IV ONE (17:34)
[2023-08-17] MEDS: APIXABAN 2.5 MG TAB PO SCH (20:09)
[2023-08-17] MEDS: LORazepam 0.5 MG TAB PO SCH (20:09)
--- NOTE | 2023-08-17 20:40 | CT Scan Report ---
CT SCAN OF THE RIGHT FOOT WITH IV CONTRAST CLINICAL HISTORY: Wound infection. COMPARISON STUDY: Radiographs and MRI of the right ankle dated 08/16/2023. TECHNIQUE: CT scan of the right foot is performed from the distal tibia and fibula to the base of the foot following the administration of 88 cc of Optiray 320. Images are reviewed in the axial, sagitta l, and coronal planes. IV contrast was administered without complication. A dose lowering technique w as utilized adhering to the principles of ALARA. The Examination is significantly degraded by streak artifact from metallic hardware. CT DOSE: 681.47 mGy.cm FINDINGS: The skeletal structures are osteopenic. There is posttraumatic deformity of the distal fibu la with a buttress plate in place along the lateral cortex. The orthopedic hardware appears intact. A small plate is also seen on the lateral cortex of the distal tibia. There is an acute to subacute ap pearing fracture through the base of the first proximal phalanx. A wound overlies the lateral aspect of the distal fibula with underlying soft tissue edema and phlegmonous change. No fluid collection is seen at this site to indicate abscess. There is no erosive change identified in the underlying fibul a. There is a crescentic fluid collection seen in the anterior soft tissues of the ankle on axial mil ge #22. This measures approximately 4 x 4 x 1 cm and is remote from the wound. There is also signific ant soft tissue inflammation along the plantar aspect of the heel. A serpiginous peripherally enhanci ng fluid collection below the calcaneus on image #150 measures 1.2 x 2.1 x 1.2 cm. There is apparent bony erosion along the dorsal/plantar aspect of the calcaneus in this region seen on axial image #222 . The ankle mortise is anatomic alignment. There are small calcified bone fragments within the joint space. Osteoarthritic change is seen throughout the foot. The Achilles tendon is intact as visualized . There is generalized atrophy of the regional musculature. A plantar heel spur is noted. IMPRESSION: 1. The examination is degraded by streak artifact from metallic hardware. 2. There is posttraumatic deformity and postsurgical change involving the distal fibula as above. 3. A wound overlies the distal fibula with surrounding cellulitis. No fluid collection is seen at thi s site to indicate abscess. 4. There is a serpiginous fluid collection in the plantar soft tissues of the heel as above with surr ounding cellulitis. This is indeterminate, but likely represents abscess. There is erosive change wit hin the adjacent dorsal/plantar calcaneal cortex. This is suspicious for osteomyelitis. Clinical romana elation will be essential. 5. An indeterminant thick walled fluid collection is seen in the deep soft tissues of the anterior sh in. This measures approximately 4 x 4 x 1 cm and is remote from the wound overlying the fibula. This may represent a chronic seroma or liquefied hematoma. The sterility of this fluid cannot be assessed by imaging and clinical correlation will be essential. 6. Acute to subacute appearing fracture through the base of the first proximal phalanx. Correlate cli nically. ACT 112: Negative or not required by law. Electronically signed by: Felipe Perera M.D. 08/17/2023 8:38 PM
[2023-08-18] MEDS: PIPERACILLIN/TAZOBACTAM 4.5 GM in DEXTROSE 5% MINI-B 100 ML IV SCH ×3 (04:34→20:07)
[2023-08-18] MEDS: PANTOprazole 40 MG TAB PO SCH (05:36)
[2023-08-18] MEDS: APIXABAN 2.5 MG TAB PO SCH ×2 (08:12→20:01)
[2023-08-18] MEDS: RALOXIFENE HCL 60 MG TAB PO SCH (08:13)
[2023-08-18] MEDS: guaiFENesin 600 MG TABCR PO SCH ×2 (08:13→20:01)
[2023-08-18] MEDS: ADVANCED PROBIOTIC 1250 MG CAPSULE PO SCH (08:14)
[2023-08-18] MEDS: CEROVITE ADV FORMULA TAB PO SCH ×2 (08:15→16:39)
[2023-08-18] MEDS: ESCITALOPRAM OXALATE 10 MG TAB PO SCH (08:15)
[2023-08-18] MEDS: FERROUS SULFATE 325 MG TAB PO SCH (08:15)
[2023-08-18] MEDS: GABAPENTIN 100 MG CAP PO SCH ×2 (08:15→16:38)
[2023-08-18] MEDS: DOCUSATE SODIUM 100 MG CAP PO SCH ×3 (08:16→16:37)
[2023-08-18] MEDS: DAPTOmycin 425 MG in SYRINGE 0 ML IV SCH (08:19)
[2023-08-18] MEDS: SPIRONOLACTONE 25 MG TAB PO SCH (16:37)
[2023-08-18] MEDS: FENOFIBRATE NANOCRYSTALLIZED 145 MG TABLET PO SCH (16:40)
--- NOTE | 2023-08-18 18:29 | Hospitalist Progress Note ---
Date of Service August 18, 2023 Assessment & Plan (1) Open wound of right lower leg: (2) Cellulitis: (3) HTN (hypertension): (4) Dyslipidemia: (5) RADHA (obstructive sleep apnea): (6) Morbid obesity with BMI of 40.0-44.9, adult: (7) Mitral valve prolapse: (8) Depression: (9) Cough: Plan Ms. Pool is an 83-year-old female that presented to the ER today with complaints of worsening right lower leg wound. Patient was admitted Novemb er until July 17 status post mechanical fall for which she sustained a fracture and underwent ORIF under the care of Dr. Garcia on 07/13. On 08/03 she was seen as an outpatient by orthopedics for suture removal and was having a hard time with her boot and was not mobilizing due to the restriction of the boot however has noticed some erythema and swelling with dehiscence around the surgical incision site. Incidentally, pt reports a intermittently productive cough that has been occurring for the past few weeks. Additional past medical history includes alopecia areata, amaurosis fugax, RLS, right rotator cuff tendinopathy, prediabetes, CKDIII, hypertension, chronic right CHF, HLD, and osteoporosis. No leukocytosis WBC 5.11, ESR slightly elevated 66, lactate minimally elevated at 2.1, no abnormalities otherwise with electrolytes. Patient is normotensive and no signs of sepsis. Most recent ECHO 02/2022: Normal LV chamber size with mild concentric LVH. EF 55-60%, no LV wall motion abnormalities, mild AV sclerosis. On examination, patient does not appear toxic however does have an open wound on the distal lateral right lower leg. Surrounding erythema and tenderness. Granulation tissue noted. Positive sensation and pedal pulse on right foot. On p.o. Eliquis postop. Admit for IV antibiotics, right ankle MRI, wound and sputum culture, chest x-ray, supportive treatment with Mucinex for cough, and Ortho consultation. Will keep patient n.p.o. after midnight tonight pending Ortho consult. Postoperative infection to the right lower extremity ORIF hardware (deep) Postoperative wound infection RLE (superficial) Open wound of right lower leg: Cellulitis: Acute s/p ORIF right fibular fracture with syndesmotic repair on 07/13 08/03 seen by Ortho as outpatient suture removal has been using a boot Positive erythema/swelling with dehiscence ESR 66, serum CK ordered no leukocytosis, Lactate 2.1; will trend Ankle x-ray results: s/p ORIF right fibular fracture with syndesmotic repair. Hardware intact. No periprosthetic lucency. Lateral ankle soft tissue swelling with possible wound. Started on daptomycin plus Zosyn in ED; continue for now and adjust based on culture results Wound culture ordered MRI without contrast right ankle: 1. The examination is severely degraded by susceptibility artifact from a large buttress plate along the lateral cortex of the distal fibula. This entirely obscures the distal fibula and the majority of the overlying soft tissues. 2. There is a wound and soft tissue edema along the lateral aspect of the ankle. No organized fluid collection is seen to suggest abscess on this examination. 3. Plantar fasciitis. 4. Degenerative change at the tibiotalar articulation. 5. Tenosynovitis of the flexor hallucis longus tendon. Orthopedic consultation 08/17 ID consulted Recommending debridement, CT with contrast Continue daptomycin plus Zosyn Probiotics daily Ortho consulted-no plans for debridement at this point, continue wound care Wound care consulted 08/18 Wound culture: Gram-negative bacilli Discussed with Ortho, ID Plan for bedside debridement on Tuesday Continue IV daptomycin plus Zosyn Cough: Acute CXR negative for acute cardiopulmonary disease Sputum culture ordered Mucinex p.o. every 12 ordered Currently on daptomycin plus Zosyn Cough improving Plan per Dr. Owens HFrEF: MVP: Chronic Takes spironolactone and Bumex; continue Takes Most recent ECHO 02/2022: Normal LV chamber size with mild concentric LVH. EF 55- 60%, no LV wall motion abnormalities, mild AV sclerosis. 08/18 Resume diuretics HLD: Chronic Continue fenofibrate Depression: Chronic Takes gabapentin and Lexapro; continue Prediabetes: Most recent A1c 05/14: 5.9; will recheck while here Increased risk for delayed wound healing GERD: Chronic Takes omeprazole; continue Disposition: PCP: Karen Galo CODE STATUS: DNR/DNI VTE prophylaxis: On Eliquis postop Admission and Anticipated Discharge Date Admission Date: August 16, 2023 Subjective Follow-up for infected right ankle wound, etc. Seen resting in bed, sitting up Having lunch States she feels fine overall Minimal pain over the right ankle Breathing is fine, less cough No other new symptom Review of Systems Review of Systems: all noted and negative except for above Physical Exam Physical Exam: General- oriented x 3, not in distress, speaks in sentences with no effort or accessory muscle use Eyes- anicteric Neck- no JVD Lungs- clear breath sounds bilaterally, no rales/wheezes Heart- normal rate, regular rhythm; no murmurs Abdomen- normal bowel sounds, nondistended, soft, nontender Extremities- no pretibial edema, no calf tenderness Right foot: Dressing in place, photograph from today's wound care nurse documentation reviewed Neuro- alert, oriented x 3; no gross focal neurologic deficits Skin- warm & dry Results & Data Results & Data Vital Signs (Past 12 Hours) Vital Signs Temp Pulse Resp BP BP Pulse Ox O2 Del Method 08/18/23 14:38 36.9 C 71 18 119/72 97 Room Air 08/18/23 07:13 36.6 C 74 20 119/73 97 Room Air all noted and reviewed including below
[2023-08-18] MEDS: LORazepam 0.5 MG TAB PO SCH (20:06)
[2023-08-18] MEDS: POTASSIUM CHLORIDE CRTAB 20 MEQ TABCR PO SCH (20:06)
[2023-08-19] MEDS: PIPERACILLIN/TAZOBACTAM 4.5 GM in DEXTROSE 5% MINI-B 100 ML IV SCH ×3 (04:31→20:55)
[2023-08-19] MEDS: PANTOprazole 40 MG TAB PO SCH (05:49)
[2023-08-19] MEDS: APIXABAN 2.5 MG TAB PO SCH ×2 (08:56→20:55)
[2023-08-19] MEDS: guaiFENesin 600 MG TABCR PO SCH ×2 (08:56→20:55)
[2023-08-19] MEDS: ADVANCED PROBIOTIC 1250 MG CAPSULE PO SCH (08:56)
[2023-08-19] MEDS: ESCITALOPRAM OXALATE 10 MG TAB PO SCH (08:57)
[2023-08-19] MEDS: RALOXIFENE HCL 60 MG TAB PO SCH (08:57)
[2023-08-19] MEDS: GABAPENTIN 100 MG CAP PO SCH ×2 (08:57→16:29)
[2023-08-19] MEDS: CEROVITE ADV FORMULA TAB PO SCH ×2 (08:57→17:56)
[2023-08-19] MEDS: FERROUS SULFATE 325 MG TAB PO SCH (08:57)
[2023-08-19] MEDS: POTASSIUM CHLORIDE CRTAB 20 MEQ TABCR PO SCH ×4 (09:01→21:00)
[2023-08-19 09:02] LABS: Basophils # (auto) 0.05 K/uL (0.00-0.20); Eosinophils # (auto) 0.08 K/uL (0.00-0.50); Eosinophils % (auto) 1.5 %; Hematocrit (blood only) 40.7 % (37.0-47.0); Hemoglobin 12.8 g/dl (12.0-16.0); Immature Granulocytes % (auto) 1.9 %; Lymphocytes # (auto) 1.33 K/uL (1.20-3.40); Lymphocytes % (auto) 25.7 %; Mean Corpuscular Hemoglobin 29.6 pg (25.0-34.0); Mean Corpuscular Hgb Conc 31.4 g/dL (32.0-36.0); Mean Corpuscular Volume 94.2 fL (80.0-100.0); Monocytes # (auto) 0.34 K/uL (0.11-0.59); Monocytes % (auto) 6.6 %; Neutrophils # (auto) 3.27 K/uL (1.40-6.50); Neutrophils % (auto) 63.3 %; Platelet Count 383 K/uL (130-400); RDW Coefficient of Variation 15.4 % (11.5-14.5); RDW Standard Deviation 53.5 fL (36.4-46.3); Red Blood Count 4.32 M/uL (4.20-5.40); White Blood Count 5.17 K/ul (4.8-10.8)
[2023-08-19] MEDS: BUMETANIDE 1 MG TAB PO SCH ×4 (09:02→16:28)
[2023-08-19] MEDS: ASPIRIN 81 MG ECTAB PO SCH (09:03)
[2023-08-19] MEDS: SPIRONOLACTONE 25 MG TAB PO SCH ×2 (09:03→16:25)
[2023-08-19] MEDS: DAPTOmycin 425 MG in SYRINGE 0 ML IV SCH (09:12)
[2023-08-19] MEDS: DOCUSATE SODIUM 100 MG CAP PO SCH ×3 (09:12→17:36)
[2023-08-19 09:19] LABS: Est GFR (African American) 84.8 ml/min; Est GFR (Non-African American) 73.2 ml/min; Potassium 3.8 mmol/L (3.5-5.1)
[2023-08-19 09:20] LABS: BUN Creatinine Ratio 18.7 (10-20); Calcium 9.7 mg/dl (8.6-10.3); Creatinine Clr Calc Pharmacy 60.5 ml/min
[2023-08-19] MEDS: metOLazone 2.5 MG TABLET PO SCH (10:54)
[2023-08-19] MEDS: FENOFIBRATE NANOCRYSTALLIZED 145 MG TABLET PO SCH (16:28)
--- NOTE | 2023-08-19 17:48 | Hospitalist Progress Note ---
Date of Service August 19, 2023 Assessment & Plan (1) Open wound of right lower leg: (2) Cellulitis: (3) HTN (hypertension): (4) Dyslipidemia: (5) RADHA (obstructive sleep apnea): (6) Morbid obesity with BMI of 40.0-44.9, adult: (7) Mitral valve prolapse: (8) Depression: (9) Cough: Plan Ms. Pool is an 83-year-old female that presented to the ER today with complaints of worsening right lower leg wound. Patient was admitted Novemb er until July 17 status post mechanical fall for which she sustained a fracture and underwent ORIF under the care of Dr. Garcia on 07/13. On 08/03 she was seen as an outpatient by orthopedics for suture removal and was having a hard time with her boot and was not mobilizing due to the restriction of the boot however has noticed some erythema and swelling with dehiscence around the surgical incision site. Incidentally, pt reports a intermittently productive cough that has been occurring for the past few weeks. Additional past medical history includes alopecia areata, amaurosis fugax, RLS, right rotator cuff tendinopathy, prediabetes, CKDIII, hypertension, chronic right CHF, HLD, and osteoporosis. No leukocytosis WBC 5.11, ESR slightly elevated 66, lactate minimally elevated at 2.1, no abnormalities otherwise with electrolytes. Patient is normotensive and no signs of sepsis. Most recent ECHO 02/2022: Normal LV chamber size with mild concentric LVH. EF 55-60%, no LV wall motion abnormalities, mild AV sclerosis. On examination, patient does not appear toxic however does have an open wound on the distal lateral right lower leg. Surrounding erythema and tenderness. Granulation tissue noted. Positive sensation and pedal pulse on right foot. On p.o. Eliquis postop. Admit for IV antibiotics, right ankle MRI, wound and sputum culture, chest x-ray, supportive treatment with Mucinex for cough, and Ortho consultation. Will keep patient n.p.o. after midnight tonight pending Ortho consult. Postoperative infection to the right lower extremity ORIF hardware (deep) Postoperative wound infection RLE (superficial) Open wound of right lower leg: Cellulitis: Acute s/p ORIF right fibular fracture with syndesmotic repair on 07/13 08/03 seen by Ortho as outpatient suture removal has been using a boot Positive erythema/swelling with dehiscence ESR 66, serum CK ordered no leukocytosis, Lactate 2.1; will trend Ankle x-ray results: s/p ORIF right fibular fracture with syndesmotic repair. Hardware intact. No periprosthetic lucency. Lateral ankle soft tissue swelling with possible wound. Started on daptomycin plus Zosyn in ED; continue for now and adjust based on culture results Wound culture ordered MRI without contrast right ankle: 1. The examination is severely degraded by susceptibility artifact from a large buttress plate along the lateral cortex of the distal fibula. This entirely obscures the distal fibula and the majority of the overlying soft tissues. 2. There is a wound and soft tissue edema along the lateral aspect of the ankle. No organized fluid collection is seen to suggest abscess on this examination. 3. Plantar fasciitis. 4. Degenerative change at the tibiotalar articulation. 5. Tenosynovitis of the flexor hallucis longus tendon. Orthopedic consultation 08/17 ID consulted Recommending debridement, CT with contrast Continue daptomycin plus Zosyn Probiotics daily Ortho consulted-no plans for debridement at this point, continue wound care Wound care consulted 08/18 Wound culture: Gram-negative bacilli Discussed with Ortho, ID Plan for bedside debridement on Tuesday Continue IV daptomycin plus Zosyn 08/19 Wound culture: Pseudomonas Continue Dapto plus Zosyn For bedside debridement tomorrow Cough: Acute CXR negative for acute cardiopulmonary disease Sputum culture ordered Mucinex p.o. every 12 ordered Currently on daptomycin plus Zosyn Cough improving Chronic HFrEF: MVP: Chronic Takes spironolactone and Bumex; continue Takes Most recent ECHO 02/2022: Normal LV chamber size with mild concentric LVH. EF 55- 60%, no LV wall motion abnormalities, mild AV sclerosis. 08/19 Resume diuretics HLD: Chronic Continue fenofibrate Depression: Chronic Takes gabapentin and Lexapro; continue Prediabetes: Most recent A1c 05/14: 5.9; will recheck while here Increased risk for delayed wound healing GERD: Chronic Takes omeprazole; continue Disposition: PCP: Karen Galo CODE STATUS: DNR/DNI VTE prophylaxis: On Eliquis postop Admission and Anticipated Discharge Date Admission Date: August 16, 2023 Subjective follow-up for infected right ankle wound, etc. Seen resting in bed, comfortable, sitting up States she feels fine overall Denies pain on the right foot Denies shortness of breath, cough is much better No other new symptom Review of Systems Review of Systems: all noted and negative except for above Physical Exam Physical Exam: General- oriented x 3, not in distress, speaks in sentences with no effort or accessory muscle use Eyes- anicteric Neck- no JVD Lungs- clear breath sounds bilaterally, no crackles, no wheezes Heart- normal rate, regular rhythm; no murmurs Abdomen- normal bowel sounds, nondistended, soft, nontender Extremities- no pretibial edema, no calf tenderness Right foot: Dressing in place, minimal surrounding erythema Neuro- alert, oriented x 3; no gross focal neurologic deficits Skin- warm & dry Results & Data Results & Data Vital Signs (Past 12 Hours) Vital Signs Temp Pulse Resp BP BP Pulse Ox O2 Del Method 08/19/23 15:24 36.7 C 67 18 116/71 97 Room Air 08/19/23 13:50 Room Air 08/19/23 06:43 36.6 C 67 18 166/92 H 96 Room Air all noted and reviewed including below
[2023-08-19] MEDS: LORazepam 0.5 MG TAB PO SCH (20:55)
[2023-08-20] MEDS: PIPERACILLIN/TAZOBACTAM 4.5 GM in DEXTROSE 5% MINI-B 100 ML IV SCH ×3 (04:01→20:29)
[2023-08-20] MEDS: POTASSIUM CHLORIDE CRTAB 20 MEQ TABCR PO SCH ×4 (06:33→20:30)
[2023-08-20] MEDS: PANTOprazole 40 MG TAB PO SCH (06:33)
[2023-08-20] MEDS: ASPIRIN 81 MG ECTAB PO SCH (09:32)
[2023-08-20] MEDS: SPIRONOLACTONE 25 MG TAB PO SCH ×2 (09:32→16:22)
[2023-08-20] MEDS: ESCITALOPRAM OXALATE 10 MG TAB PO SCH (09:33)
[2023-08-20] MEDS: APIXABAN 2.5 MG TAB PO SCH ×2 (09:33→20:29)
[2023-08-20] MEDS: FERROUS SULFATE 325 MG TAB PO SCH (09:33)
[2023-08-20] MEDS: BUMETANIDE 1 MG TAB PO SCH ×3 (09:34→16:20)
[2023-08-20] MEDS: guaiFENesin 600 MG TABCR PO SCH ×2 (09:34→20:29)
[2023-08-20] MEDS: CEROVITE ADV FORMULA TAB PO SCH ×2 (09:34→16:23)
[2023-08-20] MEDS: GABAPENTIN 100 MG CAP PO SCH ×2 (09:34→16:22)
[2023-08-20] MEDS: RALOXIFENE HCL 60 MG TAB PO SCH (09:34)
[2023-08-20] MEDS: ADVANCED PROBIOTIC 1250 MG CAPSULE PO SCH (09:34)
[2023-08-20] MEDS: DAPTOmycin 425 MG in SYRINGE 0 ML IV SCH (09:39)
[2023-08-20] MEDS: DOCUSATE SODIUM 100 MG CAP PO SCH ×3 (09:40→16:21)
[2023-08-20 10:34] LABS: Anion Gap 10 (3-11); BUN Creatinine Ratio 18.7 (10-20); Blood Urea Nitrogen 17 mg/dl (6-23); Calcium 10.2 mg/dl (8.6-10.3); Carbon Dioxide 23 mmol/L (21-32); Chloride 103 mmol/L (98-107); Creatinine Clr Calc Pharmacy 49.9 ml/min; Est GFR (African American) 67.1 ml/min; Est GFR (Non-African American) 57.9 ml/min; Glucose 178 mg/dl (70-99(Fasting)); Sodium 136 mmol/L (136-145)
--- NOTE | 2023-08-20 13:07 | Orthopedic Progress Note ---
Date of Service August 20, 2023 Assessment & Plan (1) Open wound of right lower leg: Plan: 83-year-old female with right ankle wound -toe-touch weight-bear with a walker on the right lower extremity -Bedside debridement performed today and 2 sets of wound cultures obtained -Follow-up wound cultures -ID recs -Medical management -Recommend continued wound care. Will plan to continue antibiotics and tailor based on cultures. Admission and Anticipated Discharge Date Admission Date: August 16, 2023 Subjective Patient seen and examined, no acute events overnight. Physical Exam Physical Exam: NAD, AAOx3 Musculoskeletal: RLE - distal fibula wound w/ granulation tis ana approx 2cm in size, min erythema - silt s/spn/dpn/t/s - fires ta/ehl/gsc + dp/pt Results & Data Vital Signs (Past 12 Hours) Vital Signs Temp Pulse Resp BP Pulse Ox O2 Del Method 08/20/23 12:58 36.5 C 73 18 133/67 98 Room Air 08/20/23 07:19 36.6 C 64 18 127/79 97 Room Air
[2023-08-20] MEDS: FENOFIBRATE NANOCRYSTALLIZED 145 MG TABLET PO SCH (16:20)
--- NOTE | 2023-08-20 20:01 | Hospitalist Progress Note ---
Date of Service August 20, 2023 delayed entry date of service noted above Assessment & Plan (1) Open wound of right lower leg: (2) Cellulitis: (3) HTN (hypertension): (4) Dyslipidemia: (5) RADHA (obstructive sleep apnea): (6) Morbid obesity with BMI of 40.0-44.9, adult: (7) Mitral valve prolapse: (8) Depression: (9) Cough: Plan Ms. Pool is an 83-year-old female that presented to the ER today with complaints of worsening right lower leg wound. Patient was admitted July 13 until July 17 status post mechanical fall for which she sustained a fracture and underwent ORIF under the care of Dr. Garcia on 07/13 . On 08/03 she was seen as an outpatient by orthopedics for suture removal and was having a hard time with her boot and was not mobilizing due to the restriction of the boot however has noticed some erythema and swelling with dehiscence around the surgical incision site. Incidentally, pt reports a intermittently productive cough that has been occurring for the past few weeks. Additional past medical history includes alopecia areata, amaurosis fugax, RLS, right rotator cuff tendinopathy, prediabetes, CKDIII, hypertension, chronic right CHF, HLD, and osteoporosis. No leukocytosis WBC 5.11, ESR slightly elevated 66, lactate minimally elevated at 2.1, no abnormalities otherwise with electrolytes. Patient is normotensive and no signs of sepsis. Most recent ECHO 02/2022: Normal LV chamber size with mild concentric LVH. EF 55-60%, no LV wall motion abnormalities, mild AV sclerosis. On examination, patient does not appear toxic however does have an open wound on the distal lateral right lower leg. Surrounding erythema and tenderness. Granulation tissue noted. Positive sensation and pedal pulse on right foot. On p.o. Eliquis postop. Admit for IV antibiotics, right ankle MRI, wound and sputum culture, chest x-ray, supportive treatment with Mucinex for cough, and Ortho consultation. Will keep patient n.p.o. after midnight tonight pending Ortho consult. Postoperative infection to the right lower extremity ORIF hardware (deep) Postoperative wound infection RLE (superficial) Open wound of right lower leg: Cellulitis: Acute s/p ORIF right fibular fracture with syndesmotic repair on 07/13 08/03 seen by Ortho as outpatient suture removal has been using a boot Positive erythema/swelling with dehiscence ESR 66, serum CK ordered no leukocytosis, Lactate 2.1; will trend Ankle x-ray results: s/p ORIF right fibular fracture with syndesmotic repair. Hardware intact. No periprosthetic lucency. Lateral ankle soft tissue swelling with possible wound. Started on daptomycin plus Zosyn in ED; continue for now and adjust based on culture results Wound culture ordered MRI without contrast right ankle: 1. The examination is severely degraded by susceptibility artifact from a large buttress plate along the lateral cortex of the distal fibula. This entirely obscures the distal fibula and the majority of the overlying soft tissues. 2. There is a wound and soft tissue edema along the lateral aspect of the ankle. No organized fluid collection is seen to suggest abscess on this examination. 3. Plantar fasciitis. 4. Degenerative change at the tibiotalar articulation. 5. Tenosynovitis of the flexor hallucis longus tendon. Orthopedic consultation 08/17 ID consulted Recommending debridement, CT with contrast Continue daptomycin plus Zosyn Probiotics daily Ortho consulted-no plans for debridement at this point, continue wound care Wound care consulted 08/18 Wound culture: Gram-negative bacilli Discussed with Ortho, ID Plan for bedside debridement on Tuesday Continue IV daptomycin plus Zosyn 08/19 Wound culture: Pseudomonas Continue Dapto plus Zosyn For bedside debridement tomorrow 08/20 s/p bedside debridement cultures pending ff up Cough: Acute CXR negative for acute cardiopulmonary disease Sputum culture ordered Mucinex p.o. every 12 ordered Currently on daptomycin plus Zosyn Cough resolved Chronic HFrEF: MVP: Chronic Takes spironolactone and Bumex; continue Takes Most recent ECHO 02/2022: Normal LV chamber size with mild concentric LVH. EF 55- 60%, no LV wall motion abnormalities, mild AV sclerosis. euvolemic continue diuretics HLD: Chronic Continue fenofibrate Depression: Chronic Takes gabapentin and Lexapro; continue Prediabetes: Most recent A1c 05/14: 5.9 a1c 5.6 GERD: Chronic Takes omeprazole; continue Disposition: PCP: Karen Galo CODE STATUS: DNR/DNI VTE prophylaxis: On Eliquis postop Admission and Anticipated Discharge Date Admission Date: August 16, 2023 Subjective ff up for infected R ankle wound, etc seen resting in bed, comfortable feels fine overall denies pain on the ankle wound no chest pain, dyspnea, palpitations, dizziness no other symptoms Review of Systems Review of Systems: all noted and negative except for above Physical Exam Physical Exam: General- oriented x 3, not in distress, speaks in sentences with no effort or accessory muscle use Eyes- anicteric Neck- no JVD Lungs- clear breath sounds bilaterally, no rales/wheezes Heart- normal rate, regular rhythm; no murmurs Abdomen- normal bowel sounds, nondistended, soft, nontender Extremities- no pretibial edema, no calf tenderness R ankle: dressing in place, no bleeding/discharge mild erythema surrounding Neuro- alert, oriented x 3; no gross focal neurologic deficits Skin- warm & dry Results & Data Results & Data Vital Signs (Past 12 Hours) Vital Signs Temp Pulse Resp BP Pulse Ox O2 Del Method 08/20/23 19:52 36.4 C L 73 20 125/77 96 Room Air 08/20/23 12:58 36.5 C 73 18 133/67 98 Room Air all noted and reviewed including below
[2023-08-20] MEDS: LORazepam 0.5 MG TAB PO SCH (20:29)
[2023-08-21] MEDS: PIPERACILLIN/TAZOBACTAM 4.5 GM in DEXTROSE 5% MINI-B 100 ML IV SCH ×3 (05:28→21:15)
[2023-08-21] MEDS: PANTOprazole 40 MG TAB PO SCH (05:28)
[2023-08-21 07:26] LABS: BUN Creatinine Ratio 27.8 (10-20); Calcium 9.6 mg/dl (8.6-10.3); Creatinine Clr Calc Pharmacy 50.4 ml/min; Est GFR (African American) 68.1 ml/min; Est GFR (Non-African American) 58.7 ml/min; Potassium 3.4 mmol/L (3.5-5.1)
[2023-08-21] MEDS: guaiFENesin 600 MG TABCR PO SCH ×2 (08:51→21:15)
[2023-08-21] MEDS: ADVANCED PROBIOTIC 1250 MG CAPSULE PO SCH (08:52)
[2023-08-21] MEDS: SPIRONOLACTONE 25 MG TAB PO SCH ×2 (08:52→17:13)
[2023-08-21] MEDS: APIXABAN 2.5 MG TAB PO SCH ×2 (08:52→21:14)
[2023-08-21] MEDS: FERROUS SULFATE 325 MG TAB PO SCH (08:52)
[2023-08-21] MEDS: BUMETANIDE 1 MG TAB PO SCH ×3 (08:52→17:13)
[2023-08-21] MEDS: CEROVITE ADV FORMULA TAB PO SCH ×2 (08:52→17:14)
[2023-08-21] MEDS: GABAPENTIN 100 MG CAP PO SCH ×2 (08:52→17:14)
[2023-08-21] MEDS: RALOXIFENE HCL 60 MG TAB PO SCH (08:52)
[2023-08-21] MEDS: ASPIRIN 81 MG ECTAB PO SCH (08:52)
[2023-08-21] MEDS: DOCUSATE SODIUM 100 MG CAP PO SCH ×3 (08:53→17:14)
[2023-08-21] MEDS: ESCITALOPRAM OXALATE 10 MG TAB PO SCH (08:53)
[2023-08-21] MEDS: DAPTOmycin 425 MG in SYRINGE 0 ML IV SCH (08:57)
[2023-08-21] MEDS: POTASSIUM CHLORIDE CRTAB 20 MEQ TABCR PO SCH ×4 (08:57→21:15)
[2023-08-21] MEDS: FENOFIBRATE NANOCRYSTALLIZED 145 MG TABLET PO SCH (17:13)
--- NOTE | 2023-08-21 19:34 | Hospitalist Progress Note ---
Date of Service August 21, 2023 delayed entry date of service noted above Assessment & Plan (1) Open wound of right lower leg: (2) Cellulitis: (3) HTN (hypertension): (4) Dyslipidemia: (5) RADHA (obstructive sleep apnea): (6) Morbid obesity with BMI of 40.0-44.9, adult: (7) Mitral valve prolapse: (8) Depression: (9) Cough: Plan Ms. Pool is an 83-year-old female that presented to the ER today with complaints of worsening right lower leg wound. Patient was admitted July 13 until July 17 status post mechanical fall for which she sustained a fracture and underwent ORIF under the care of Dr. Garcia on 07/13 . On 08/03 she was seen as an outpatient by orthopedics for suture removal and was having a hard time with her boot and was not mobilizing due to the restriction of the boot however has noticed some erythema and swelling with dehiscence around the surgical incision site. Incidentally, pt reports a intermittently productive cough that has been occurring for the past few weeks. Additional past medical history includes alopecia areata, amaurosis fugax, RLS, right rotator cuff tendinopathy, prediabetes, CKDIII, hypertension, chronic right CHF, HLD, and osteoporosis. No leukocytosis WBC 5.11, ESR slightly elevated 66, lactate minimally elevated at 2.1, no abnormalities otherwise with electrolytes. Patient is normotensive and no signs of sepsis. Most recent ECHO 02/2022: Normal LV chamber size with mild concentric LVH. EF 55-60%, no LV wall motion abnormalities, mild AV sclerosis. On examination, patient does not appear toxic however does have an open wound on the distal lateral right lower leg. Surrounding erythema and tenderness. Granulation tissue noted. Positive sensation and pedal pulse on right foot. On p.o. Eliquis postop. Admit for IV antibiotics, right ankle MRI, wound and sputum culture, chest x-ray, supportive treatment with Mucinex for cough, and Ortho consultation. Will keep patient n.p.o. after midnight tonight pending Ortho consult. Postoperative infection to the right lower extremity ORIF hardware (deep) Postoperative wound infection RLE (superficial) Open wound of right lower leg: Cellulitis: Acute s/p ORIF right fibular fracture with syndesmotic repair on 07/13 08/03 seen by Ortho as outpatient suture removal has been using a boot Positive erythema/swelling with dehiscence ESR 66, serum CK ordered no leukocytosis, Lactate 2.1; will trend Ankle x-ray results: s/p ORIF right fibular fracture with syndesmotic repair. Hardware intact. No periprosthetic lucency. Lateral ankle soft tissue swelling with possible wound. Started on daptomycin plus Zosyn in ED; continue for now and adjust based on culture results Wound culture ordered MRI without contrast right ankle: 1. The examination is severely degraded by susceptibility artifact from a large buttress plate along the lateral cortex of the distal fibula. This entirely obscures the distal fibula and the majority of the overlying soft tissues. 2. There is a wound and soft tissue edema along the lateral aspect of the ankle. No organized fluid collection is seen to suggest abscess on this examination. 3. Plantar fasciitis. 4. Degenerative change at the tibiotalar articulation. 5. Tenosynovitis of the flexor hallucis longus tendon. Orthopedic consultation 08/17 ID consulted Recommending debridement, CT with contrast Continue daptomycin plus Zosyn Probiotics daily Ortho consulted-no plans for debridement at this point, continue wound care Wound care consulted 08/18 Wound culture: Gram-negative bacilli Discussed with Ortho, ID Plan for bedside debridement on Tuesday Continue IV daptomycin plus Zosyn 08/19 Wound culture: Pseudomonas Continue Dapto plus Zosyn For bedside debridement tomorrow 08/21 Wound culture: Pseudomonas Drainage culture: Pending Continue daptomycin plus Zosyn Cough: Acute CXR negative for acute cardiopulmonary disease Sputum culture ordered Mucinex p.o. every 12 ordered Currently on daptomycin plus Zosyn Cough improving Chronic HFrEF: MVP: Chronic Takes spironolactone and Bumex; continue Takes Most recent ECHO 02/2022: Normal LV chamber size with mild concentric LVH. EF 55- 60%, no LV wall motion abnormalities, mild AV sclerosis. 08/19 Resume diuretics HLD: Chronic Continue fenofibrate Depression: Chronic Takes gabapentin and Lexapro; continue Prediabetes: Most recent A1c 05/14: 5.9; will recheck while here Increased risk for delayed wound healing GERD: Chronic Takes omeprazole; continue Disposition: PCP: Karen Galo CODE STATUS: DNR/DNI VTE prophylaxis: On Eliquis postop Admission and Anticipated Discharge Date Admission Date: August 16, 2023 Subjective ff up for infected R ankle wound, etc. Seen resting in bed, comfortable, not in distress States she feels fine overall Denies ankle pain No shortness of breath or cough No other new symptoms Review of Systems Review of Systems: all noted and negative except for above Physical Exam Physical Exam: General- oriented x 3, not in distress, speaks in sentences with no effort or accessory muscle use Eyes- anicteric Neck- no JVD Lungs- clear BS BL Heart- normal rate, regular rhythm; no murmurs Abdomen- normal bowel sounds, nondistended, soft, nontender Extremities- no pretibial edema, no calf tenderness Right ankle wound: Dressing in place, minimal surrounding erythema, no tenderness Neuro- alert, oriented x 3; no gross focal neurologic deficits Skin- warm & dry Results & Data Results & Data Vital Signs (Past 12 Hours) Vital Signs Temp Pulse Resp BP Pulse Ox O2 Del Method 08/21/23 09:02 36.7 C 81 18 104/65 97 Room Air 08/21/23 08:00 Room Air all noted and reviewed including below
[2023-08-21] MEDS: LORazepam 0.5 MG TAB PO SCH (21:14)
[2023-08-22] MEDS: PIPERACILLIN/TAZOBACTAM 4.5 GM in DEXTROSE 5% MINI-B 100 ML IV SCH ×2 (05:29→12:09)
[2023-08-22] MEDS: PANTOprazole 40 MG TAB PO SCH (05:30)
[2023-08-22 07:34] LABS: BUN Creatinine Ratio 21.8 (10-20); Creatinine Clr Calc Pharmacy 38.1 ml/min; Est GFR (African American) 48.5 ml/min; Est GFR (Non-African American) 41.9 ml/min
[2023-08-22] MEDS: BUMETANIDE 1 MG TAB PO SCH ×3 (08:15→17:02)
[2023-08-22] MEDS: RALOXIFENE HCL 60 MG TAB PO SCH (08:15)
[2023-08-22] MEDS: guaiFENesin 600 MG TABCR PO SCH ×2 (08:15→20:41)
[2023-08-22] MEDS: CEROVITE ADV FORMULA TAB PO SCH ×2 (08:16→17:02)
[2023-08-22] MEDS: metOLazone 2.5 MG TABLET PO SCH (08:16)
[2023-08-22] MEDS: ADVANCED PROBIOTIC 1250 MG CAPSULE PO SCH (08:16)
[2023-08-22] MEDS: FERROUS SULFATE 325 MG TAB PO SCH (08:16)
[2023-08-22] MEDS: GABAPENTIN 100 MG CAP PO SCH ×2 (08:16→17:02)
[2023-08-22] MEDS: ESCITALOPRAM OXALATE 10 MG TAB PO SCH (08:17)
[2023-08-22] MEDS: ASPIRIN 81 MG ECTAB PO SCH (08:17)
[2023-08-22] MEDS: SPIRONOLACTONE 25 MG TAB PO SCH ×2 (08:17→17:03)
[2023-08-22] MEDS: DOCUSATE SODIUM 100 MG CAP PO SCH ×3 (08:18→16:38)
[2023-08-22] MEDS: APIXABAN 2.5 MG TAB PO SCH ×2 (08:18→20:41)
[2023-08-22] MEDS: DAPTOmycin 425 MG in SYRINGE 0 ML IV SCH (08:22)
[2023-08-22] MEDS: POTASSIUM CHLORIDE CRTAB 20 MEQ TABCR PO SCH ×4 (08:22→20:41)
--- NOTE | 2023-08-22 13:01 | Infectious Disease Progress Nt ---
Date of Service August 22, 2023 Telehealth Information Patient not seen. Assessment & Plan (1) Retained orthopedic hardware: (2) Surgical site infection: Plan Infected ORIF site on ankle. Cultures with Pseudomonas and Proteus. Images reviewed and show no significant cellulitis, but infection is deep and clearly involves underlying hardware. It will likely not be curable while hardware is retained. Depending on goals of care, we can try something as simple as cipro 500mg po bid for a total of 14 days, but her wound will likely not heal and the infection will eventually progress. If we want to be more aggressive, then I would use cefepime 2g IV q 8 for up to 6 weeks. This would likely do a better job of suppressing the infection and helping promote wound healing, but still may leave her with underlying infected hardware that will eventually cause a problem again down the line. While on cefepime, she should have weekly CBC and BMP. She can follow-up in ID clinic in the next 4 weeks. Subjective Patient not seen today. Review of Systems ROS not obtained Physical Exam Exam not performed Results & Data Vital Signs (Past 12 Hours) Vital Signs Temp Pulse Resp BP Pulse Ox O2 Del Method 08/22/23 08:20 36.5 C 77 18 120/72 97 Room Air 08/22/23 07:30 Room Air Diagnostic Findings Cultures from wound, labs and vital signs reviewed.
[2023-08-22] MEDS: FENOFIBRATE NANOCRYSTALLIZED 145 MG TABLET PO SCH (17:02)
--- NOTE | 2023-08-22 17:34 | Hospitalist Progress Note ---
Date of Service August 22, 2023 Assessment & Plan (1) Open wound of right lower leg: (2) Cellulitis: (3) HTN (hypertension): (4) Dyslipidemia: (5) RADHA (obstructive sleep apnea): (6) Morbid obesity with BMI of 40.0-44.9, adult: (7) Mitral valve prolapse: (8) Depression: (9) Cough: Plan Ms. Pool is an 83-year-old female that presented to the ER today with complaints of worsening right lower leg wound. Patient was admitted July 13 until July 17 status post mechanical fall for which she sustained a fracture and underwent ORIF under the care of Dr. Garcia on 07/13 . On 08/03 she was seen as an outpatient by orthopedics for suture removal and was having a hard time with her boot and was not mobilizing due to the restriction of the boot however has noticed some erythema and swelling with dehi scence around the surgical incision site. Incidentally, pt reports a intermittently productive cough that has been occurring for the past few weeks. Additional past medical history includes alopecia areata, amaurosis fugax, RLS, right rotator cuff tendinopathy, prediabetes, CKDIII, hypertension, chronic right CHF, HLD, and osteoporosis. No leukocytosis WBC 5.11, ESR slightly elevated 66, lactate minimally elevated at 2.1, no abnormalities otherwise with electrolytes. Patient is normotensive and no signs of sepsis. Most recent ECHO 02/2022: Normal LV chamber size with mild concentric LVH. EF 55-60%, no LV wall motion abnormalities, mild AV sclerosis. On examination, patient does not appear toxic however does have an open wound on the distal lateral right lower leg. Surrounding erythema and tenderness. Granulation tissue noted. Positive sensation and pedal pulse on right foot. On p.o. Eliquis postop. Admit for IV antibiotics, right ankle MRI, wound and sputum culture, chest x-ray, supportive treatment with Mucinex for cough, and Ortho consultation. Will keep patient n.p.o. after midnight tonight pending Ortho consult. Postoperative infection to the right lower extremity ORIF hardware (deep) Postoperative wound infection RLE (superficial) Open wound of right lower leg: Cellulitis: Acute s/p ORIF right fibular fracture with syndesmotic repair on 07/13 08/03 seen by Ortho as outpatient suture removal has been using a boot Positive erythema/swelling with dehiscence ESR 66, serum CK ordered no leukocytosis, Lactate 2.1; will trend Ankle x-ray results: s/p ORIF right fibular fracture with syndesmotic repair. Hardware intact. No periprosthetic lucency. Lateral ankle soft tissue swelling with possible wound. Started on daptomycin plus Zosyn in ED; continue for now and adjust based on culture results Wound culture ordered MRI without contrast right ankle: 1. The examination is severely degraded by susceptibility artifact from a large buttress plate along the lateral cortex of the distal fibula. This entirely obscures the distal fibula and the majority of the overlying soft tissues. 2. There is a wound and soft tissue edema along the lateral aspect of the ankle. No organized fluid collection is seen to suggest abscess on this examination. 3. Plantar fasciitis. 4. Degenerative change at the tibiotalar articulation. 5. Tenosynovitis of the flexor hallucis longus tendon. Orthopedic consultation 08/17 ID consulted Recommending debridement, CT with contrast Continue daptomycin plus Zosyn Probiotics daily Ortho consulted-no plans for debridement at this point, continue wound care Wound care consulted 08/18 Wound culture: Gram-negative bacilli Discussed with Ortho, ID Plan for bedside debridement on Tuesday Continue IV daptomycin plus Zosyn 08/19 Wound culture: Pseudomonas Continue Dapto plus Zosyn For bedside debridement tomorrow 08/21 Wound culture: Pseudomonas Drainage culture: Pending Continue daptomycin plus Zosyn 08/22 Superficial wound culture: Pseudomonas aeruginosa Debridement drainage culture: Proteus ID updated recommendations: Ciprofloxacin 5 mg twice daily or cefepime 2 g every 8 x 6 weeks ID recommending the latter would be more aggressive management, and would promote better wound healing Start cefepime 2 g IV every 8 hours x 6 weeks CBC, CMP while on IV cefepime Probiotics x 2 months Will need a PICC line Cough: Acute CXR negative for acute cardiopulmonary disease Sputum culture ordered Mucinex p.o. every 12 ordered Currently on daptomycin plus Zosyn Cough improving Chronic HFrEF: MVP: Chronic Takes spironolactone and Bumex; continue Takes Most recent ECHO 02/2022: Normal LV chamber size with mild concentric LVH. EF 55- 60%, no LV wall motion abnormalities, mild AV sclerosis. Euvolemic Continue present diuretics HLD: Chronic Continue fenofibrate Depression: Chronic Takes gabapentin and Lexapro; continue Prediabetes: Most recent A1c 05/14: 5.9; will recheck while here Increased risk for delayed wound healing GERD: Chronic Takes omeprazole; continue Disposition: PCP: Karen Galo CODE STATUS: DNR/DNI VTE prophylaxis: On Eliquis postop Admission and Anticipated Discharge Date Admission Date: August 16, 2023 Subjective Follow-up for right ankle infected wound, etc. Sitting up in bed, not in distress States she feels okay overall Denies new symptoms Review of Systems Review of Systems: all noted and negative except for above Physical Exam Physical Exam: General- oriented x 3, not in distress, speaks in sentences with no effort or accessory muscle use Eyes- anicteric Neck- no JVD Lungs- clear breath sounds bilaterally Heart- normal rate, regular rhythm; no murmurs Abdomen- normal bowel sounds, nondistended, soft, nontender Extremities- no pretibial edema, no calf tenderness Right ankle wound: No bleeding or discharge, minimal surrounding erythema No tenderness Neuro- alert, oriented x 3; no gross focal neurologic deficits Skin- warm & dry Results & Data Results & Data Vital Signs (Past 12 Hours) Vital Signs Temp Pulse Resp BP Pulse Ox O2 Del Method 08/22/23 15:29 80 18 122/79 97 Room Air 08/22/23 08:20 36.5 C 77 18 120/72 97 Room Air 08/22/23 07:30 Room Air all noted and reviewed including below
[2023-08-22] MEDS: LORazepam 0.5 MG TAB PO SCH (20:41)
[2023-08-22] MEDS: CEFEPIME 2,000 MG in SYRINGE 0 ML IV SCH (22:38)
[2023-08-23] MEDS: PANTOprazole 40 MG TAB PO SCH (06:34)
[2023-08-23] MEDS: POTASSIUM CHLORIDE CRTAB 20 MEQ TABCR PO SCH ×4 (06:34→19:55)
[2023-08-23] MEDS: DOCUSATE SODIUM 100 MG CAP PO SCH ×3 (08:04→15:59)
[2023-08-23] MEDS: SPIRONOLACTONE 25 MG TAB PO SCH ×2 (08:04→16:04)
[2023-08-23] MEDS: ESCITALOPRAM OXALATE 10 MG TAB PO SCH (08:05)
[2023-08-23] MEDS: BUMETANIDE 1 MG TAB PO SCH ×3 (08:05→16:03)
[2023-08-23] MEDS: FERROUS SULFATE 325 MG TAB PO SCH (08:05)
[2023-08-23] MEDS: ASPIRIN 81 MG ECTAB PO SCH (08:05)
[2023-08-23] MEDS: ADVANCED PROBIOTIC 1250 MG CAPSULE PO SCH (08:06)
[2023-08-23] MEDS: guaiFENesin 600 MG TABCR PO SCH ×2 (08:06→19:55)
[2023-08-23] MEDS: CEROVITE ADV FORMULA TAB PO SCH ×2 (08:06→16:03)
[2023-08-23] MEDS: APIXABAN 2.5 MG TAB PO SCH ×2 (08:06→19:55)
[2023-08-23] MEDS: RALOXIFENE HCL 60 MG TAB PO SCH (08:06)
[2023-08-23] MEDS: GABAPENTIN 100 MG CAP PO SCH ×2 (08:07→16:03)
[2023-08-23 09:08] LABS: BUN Creatinine Ratio 27.5 (10-20); Calcium 10.4 mg/dl (8.6-10.3); Creatinine Clr Calc Pharmacy 41.6 ml/min; Est GFR (Non-African American) 46.6 ml/min; Potassium 3.6 mmol/L (3.5-5.1)
[2023-08-23] MEDS: CEFEPIME 2,000 MG in SYRINGE 0 ML IV SCH (11:32)
--- NOTE | 2023-08-23 14:58 | Hospitalist Progress Note ---
Date of Service August 23, 2023 Assessment & Plan (1) Open wound of right lower leg: (2) Cellulitis: (3) HTN (hypertension): (4) Dyslipidemia: (5) RADHA (obstructive sleep apnea): (6) Morbid obesity with BMI of 40.0-44.9, adult: (7) Mitral valve prolapse: (8) Depression: (9) Cough: Plan Ms. Pool is an 83-year-old female that presented to the ER today with complaints of worsening right lower leg wound. Patient was admitted July 13 until July 17 status post mechanical fall for which she sustained a fracture and underwent ORIF under the care of Dr. Garcia on 07/13 . On 08/03 she was seen as an outpatient by orthopedics for suture removal and was having a hard time with her boot and was not mobilizing due to the restriction of the boot however has noticed some erythema and swelling with dehi scence around the surgical incision site. Incidentally, pt reports a intermittently productive cough that has been occurring for the past few weeks. Additional past medical history includes alopecia areata, amaurosis fugax, RLS, right rotator cuff tendinopathy, prediabetes, CKDIII, hypertension, chronic right CHF, HLD, and osteoporosis. Postoperative infection to the right lower extremity ORIF hardware (deep) Postoperative wound infection RLE (superficial) Open wound of right lower leg: Cellulitis: Acute s/p ORIF right fibular fracture with syndesmotic repair on 07/13 08/03 seen by Ortho as outpatient suture removal has been using a boot Positive erythema/swelling with dehiscence ESR 66, serum CK ordered no leukocytosis, Lactate 2.1; will trend Ankle x-ray results: s/p ORIF right fibular fracture with syndesmotic repair. Hardware intact. No periprosthetic lucency. Lateral ankle soft tissue swelling w ith possible wound. Started on daptomycin plus Zosyn in ED; continue for now and adjust based on culture results Wound culture ordered MRI without contrast right ankle: 1. The examination is severely degraded by susceptibility artifact from a large buttress plate along the lateral cortex of the distal fibula. This entirely obscures the distal fibula and the majority of the overlying soft tissues. 2. There is a wound and soft tissue edema along the lateral aspect of the ankle. No organized fluid collection is seen to suggest abscess on this examination. 3. Plantar fasciitis. 4. Degenerative change at the tibiotalar articulation. 5. Tenosynovitis of the flexor hallucis longus tendon. Orthopedic consultation ID recommended debridement Would culture: pseudomonas;drainage culture: proteus ID updated recommendations: Ciprofloxacin 5 mg twice daily or cefepime 2 g every 8 x 6 weeks ID recommending the latter would be more aggressive management, and would promo te better wound healing Start cefepime 2 g IV every 8 hours x 6 weeks, currently on q12hr per renal function CBC, CMP while on IV cefepime Probiotics x 2 months Will need a PICC line - consent obtained Cough: Acute CXR negative for acute cardiopulmonary disease Sputum culture ordered Mucinex p.o. every 12 ordered Cough improving Chronic HFrEF: MVP: Chronic Takes spironolactone and Bumex; continue Most recent ECHO 02/2022: Normal LV chamber size with mild concentric LVH. EF 55- 60%, no LV wall motion abnormalities, mild AV sclerosis. Euvolemic Continue present diuretics HLD: Chronic Continue fenofibrate Depression: Chronic Takes gabapentin and Lexapro; continue Prediabetes: a1c 5.6 on 08/16/23 Increased risk for delayed wound healing GERD: Chronic Takes omeprazole; continue Disposition: PCP: Karen Galo CODE STATUS: DNR/DNI VTE prophylaxis: On Eliquis postop Dispo: Pt will require 6 weeks of IV cefepime, pt resides at [facility], working on d/c planning to complete IV antibiotics. A total of 56 was spent coordinating, documenting, and providing care for this patient excluding time spent in the performance of separately billed services. This included personally viewing all current laboratories and imaging studies, medication reconciliation, outpatient chart review, and discussion with specialists. Pt was seen and examined in collaboration with Dr. Montero, please see addendum Admission and Anticipated Discharge Date Admission Date: August 16, 2023 Supervising Physician Co-Signing Physician Notes delayed entry date of service noted above Attending Addendum: care coordinated with EMMA Chris please refer to her notes for full details, I agree with her notes patient seen and examined, records reviewed by myself as well diagnoses and plan of care as per EMMA Montero MD Subjective Pt seen and evaluated in room 351-1 F/U Cellulitis. Pt is frustrated. She denies f/c/s, chest pain, sob, n/v/d. Appetite is good. She is moving bowels. Review of Systems Review of Systems: All systems reviewed & are unremarkable except as noted in HPI & below Physical Exam Physical Exam: Gen: WD/WN, NAD, A&O x3 HEENT: Normocephalic, atraumatic, conjunctivae moist, sclerae anicteric, mucous membranes moist. Lung: Clear to Auscultation bilaterally, no wheezes/rales/rhonchi Heart: Regular rate, regular rhythm, no murmurs, rubs, or gallops Abdomen: Soft, NT, ND +BS x 4 Extremities: No edema, R ankle wound, dressing cdi Skin: Warm, no rash, negative turgor. Results & Data Results & Data Vital Signs (Past 12 Hours) Vital Signs Temp Pulse Resp BP Pulse Ox O2 Del Method 08/23/23 08:11 36.5 C 73 16 117/78 96 Room Air 08/23/23 07:30 Room Air Laboratory Results BMP 08/23/23 08:26 Sodium 136 Potassium 3.6 Chloride 99 Carbon Dioxide 26 BUN 30 H Creatinine 1.09 Glucose 166 H Calcium 10.4 H I have independently reviewed and interpreted patient's labs including bmp. Medications Administered Current Inpatient Medications Acetaminophen (Acetaminophen 325 Mg Tab) 650 mg PO Q4H PRN PRN Reason: pain/fever Stop: 09/15/23 10:15 Last Admin: 08/16/23 14:34 Dose: 650 mg Al Hydrox/Mg Hydrox/Simethicone (Aluminum/Magnesium Susp 30 Ml Udc) 30 ml PO Q6H PRN PRN Reason: Dyspepsia Stop: 09/15/23 10:15 Apixaban (Apixaban 2.5 Mg Tab) 2.5 mg PO BID [facility] Stop: 09/15/23 20:59 Last Admin: 08/23/23 08:06 Dose: 2.5 mg Aspirin (Aspirin 81 Mg Ectab) 81 mg PO QAM [facility] Stop: 09/16/23 08:59 Last Admin: 08/23/23 08:05 Dose: 81 mg Bumetanide (Bumetanide 1 Mg Tab) 2 mg PO TIDM [facility] Stop: 09/15/23 11:59 Last Admin: 08/23/23 11:31 Dose: 2 mg Docusate Sodium (Docusate Sodium 100 Mg Cap) 100 mg PO TIDM [facility] Stop: 09/15/23 11:59 Last Admin: 08/23/23 11:06 Dose: Not Given Escitalopram Oxalate (Escitalopram Oxalate 10 Mg Tab) 10 mg PO QAM [facility] Stop: 09/16/23 08:59 Last Admin: 08/23/23 08:05 Dose: 10 mg Fenofibrate (Fenofibrate Nanocrystallized 145 Mg Tablet) 145 mg PO QDD [facility] Stop: 09/17/23 16:29 Last Admin: 08/22/23 17:02 Dose: 145 mg Ferrous Sulfate (Ferrous Sulfate 325 Mg Tab) 325 mg PO QAM [facility] Stop: 09/16/23 08:59 Last Admin: 08/23/23 08:05 Dose: 325 mg Gabapentin (Gabapentin 100 Mg Cap) 100 mg PO BIDM [facility] Stop: 09/15/23 16:59 Last Admin: 08/23/23 08:07 Dose: 100 mg Guaifenesin (Guaifenesin 600 Mg Tabcr) 1,200 mg PO Q12 [facility] Stop: 09/15/23 10:59 Last Admin: 08/23/23 08:06 Dose: 1,200 mg Cefepime HCl 2,000 mg/ Syringe 20 mls @ 5 mls/min IV Q12H [facility]; Protocol Stop: 08/29/23 22:59 Last Admin: 08/23/23 11:32 Dose: 5 mls/min Lactobacillus Acidophilus (Advanced Probiotic 1250 Mg Capsule) 2 cap PO DAILY [facility] Stop: 09/16/23 10:59 Last Admin: 08/23/23 08:06 Dose: 2 cap Lorazepam (Lorazepam 0.5 Mg Tab) 0.5 mg PO HS [facility] Stop: 09/15/23 20:59 Last Admin: 08/22/23 20:41 Dose: 0.5 mg Magnesium Hydroxide (Magnesium Hydroxide Susp 30 Ml Udc) 30 ml PO Q6H PRN PRN Reason: Constipation Stop: 09/15/23 10:15 Metolazone (Metolazone 2.5 Mg Tablet) 2.5 mg PO MoWeFr@0900 [facility] Stop: 09/16/23 08:59 Last Admin: 08/22/23 08:16 Dose: 2.5 mg Multivitamins/Minerals (Cerovite Adv Formula Tab) 1 tab PO BIDM [facility] Stop: 09/15/23 16:59 Last Admin: 08/23/23 08:06 Dose: 1 tab Ondansetron HCl (Ondansetron Inj 2 Mg/Ml 2 Ml Vial) 4 mg IV Q6H PRN PRN Reason: Nausea Stop: 09/15/23 10:15 Pantoprazole Sodium (Pantoprazole 40 Mg Tab) 40 mg PO DAILYBB [facility] Stop: 09/16/23 06:29 Last Admin: 08/23/23 06:34 Dose: 40 mg Polyethylene Glycol (Polyethylene (Miralax) 17 Gm Pack) 17 gm PO DAILY PRN PRN Reason: Constipation Stop: 09/15/23 10:15 Potassium Chloride (Potassium Chloride Crtab 20 Meq Tabcr) 40 meq PO ACHS [facility] Stop: 09/15/23 12:29 Last Admin: 08/23/23 11:31 Dose: 40 meq Raloxifene HCl (Raloxifene Hcl 60 Mg Tab) 60 mg PO QAM [facility] Stop: 09/16/23 08:59 Last Admin: 08/23/23 08:06 Dose: 60 mg Spironolactone (Spironolactone 25 Mg Tab) 100 mg PO QAM [facility] Stop: 09/15/23 12:29 Last Admin: 08/23/23 08:04 Dose: 100 mg Spironolactone (Spironolactone 25 Mg Tab) 75 mg PO QDD [facility] Stop: 09/15/23 16:29 Last Admin: 08/22/23 17:03 Dose: 75 mg
[2023-08-23] MEDS: FENOFIBRATE NANOCRYSTALLIZED 145 MG TABLET PO SCH (16:03)
[2023-08-23] MEDS: LORazepam 0.5 MG TAB PO SCH (19:55)
[2023-08-24] MEDS: MELATONIN 3 MG TAB PO PRN (00:01)
[2023-08-24] MEDS: PANTOprazole 40 MG TAB PO SCH (05:48)
[2023-08-24] MEDS: POTASSIUM CHLORIDE CRTAB 20 MEQ TABCR PO SCH ×4 (05:55→20:05)
[2023-08-24] MEDS: DOCUSATE SODIUM 100 MG CAP PO SCH ×3 (07:22→15:53)
[2023-08-24 07:32] LABS: BUN Creatinine Ratio 31.2 (10-20); Calcium 10.4 mg/dl (8.6-10.3); Creatinine Clr Calc Pharmacy 41.6 ml/min; Est GFR (Non-African American) 46.6 ml/min; Potassium 3.8 mmol/L (3.5-5.1)
[2023-08-24] MEDS: BUMETANIDE 1 MG TAB PO SCH ×3 (07:50→15:58)
[2023-08-24] MEDS: ASPIRIN 81 MG ECTAB PO SCH (07:51)
[2023-08-24] MEDS: RALOXIFENE HCL 60 MG TAB PO SCH (07:51)
[2023-08-24] MEDS: APIXABAN 2.5 MG TAB PO SCH ×2 (07:51→20:05)
[2023-08-24] MEDS: GABAPENTIN 100 MG CAP PO SCH ×2 (07:51→15:59)
[2023-08-24] MEDS: CEROVITE ADV FORMULA TAB PO SCH ×2 (07:51→16:00)
[2023-08-24] MEDS: SPIRONOLACTONE 25 MG TAB PO SCH ×2 (07:52→15:57)
[2023-08-24] MEDS: ESCITALOPRAM OXALATE 10 MG TAB PO SCH (07:52)
[2023-08-24] MEDS: FERROUS SULFATE 325 MG TAB PO SCH (07:52)
[2023-08-24] MEDS: metOLazone 2.5 MG TABLET PO SCH (07:53)
[2023-08-24] MEDS: ADVANCED PROBIOTIC 1250 MG CAPSULE PO SCH (07:53)
[2023-08-24] MEDS: guaiFENesin 600 MG TABCR PO SCH ×2 (07:53→20:05)
[2023-08-24] MEDS: CEFEPIME 2,000 MG in SYRINGE 0 ML IV SCH ×3 (11:16→22:52)
--- NOTE | 2023-08-24 12:31 | Hospitalist Progress Note ---
Date of Service August 24, 2023 Assessment & Plan (1) Open wound of right lower leg: (2) Cellulitis: (3) HTN (hypertension): (4) Dyslipidemia: (5) RADHA (obstructive sleep apnea): (6) Morbid obesity with BMI of 40.0-44.9, adult: (7) Mitral valve prolapse: (8) Depression: (9) Cough: Plan Ms. Pool is an 83-year-old female that presented to the ER today with complaints of worsening right lower leg wound. Patient was admitted July 13 until July 17 status post mechanical fall for which she sustained a fracture and underwent ORIF under the care of Dr. Garcia on 07/13 . On 08/03 she was seen as an outpatient by orthopedics for suture removal and was having a hard time with her boot and was not mobilizing due to the restriction of the boot however has noticed some erythema and swelling with dehi scence around the surgical incision site. Incidentally, pt reports a intermittently productive cough that has been occurring for the past few weeks. Additional past medical history includes alopecia areata, amaurosis fugax, RLS, right rotator cuff tendinopathy, prediabetes, CKDIII, hypertension, chronic right CHF, HLD, and osteoporosis. Postoperative infection to the right lower extremity ORIF hardware (deep) Postoperative wound infection RLE (superficial) Open wound of right lower leg: Cellulitis: Acute s/p ORIF right fibular fracture with syndesmotic repair on 07/13 08/03 seen by Ortho as outpatient suture removal has been using a boot Positive erythema/swelling with dehiscence ESR 66, serum CK ordered no leukocytosis, Lactate 2.1; will trend Ankle x-ray results: s/p ORIF right fibular fracture with syndesmotic repair. Hardware intact. No periprosthetic lucency. Lateral ankle soft tissue swelling w ith possible wound. Started on daptomycin plus Zosyn in ED; continue for now and adjust based on culture results Wound culture ordered MRI without contrast right ankle: 1. The examination is severely degraded by susceptibility artifact from a large buttress plate along the lateral cortex of the distal fibula. This entirely obscures the distal fibula and the majority of the overlying soft tissues. 2. There is a wound and soft tissue edema along the lateral aspect of the ankle. No organized fluid collection is seen to suggest abscess on this examination. 3. Plantar fasciitis. 4. Degenerative change at the tibiotalar articulation. 5. Tenosynovitis of the flexor hallucis longus tendon. Orthopedic consultation ID recommended debridement Would culture: pseudomonas;drainage culture: proteus ID updated recommendations: Ciprofloxacin 5 mg twice daily or cefepime 2 g every 8 x 6 weeks ID recommending the latter would be more aggressive management, and would promo te better wound healing Start cefepime 2 g IV every 8 hours x 6 weeks, currently on q12hr per renal function CBC, CMP while on IV cefepime Probiotics x 2 months PICC line placed weight bearing: TTWB wound care: irrigate wound with saline using 35cc syringe and 18g blunt needle. Pat dry. Cover/fill wound with aquacel Ag and secure with optifoam. Change optifoam when > 50% wet with drainage Cough: Acute CXR negative for acute cardiopulmonary disease Sputum culture ordered Mucinex p.o. every 12 ordered Cough improving Chronic HFrEF: MVP: Chronic Takes spironolactone and Bumex; continue Most recent ECHO 02/2022: Normal LV chamber size with mild concentric LVH. EF 55- 60%, no LV wall motion abnormalities, mild AV sclerosis. Euvolemic Continue present diuretics HLD: Chronic Continue fenofibrate Depression: Chronic Takes gabapentin and Lexapro; continue Prediabetes: a1c 5.6 on 08/16/23 Increased risk for delayed wound healing GERD: Chronic Takes omeprazole; continue Disposition: PCP: Karen Galo CODE STATUS: DNR/DNI VTE prophylaxis: On Eliquis postop Dispo: Pt will require 6 weeks of IV cefepime, pt resides at [facility] working on d/c planning to complete IV antibiotics at rehab A total of 45 was spent coordinating, documenting, and providing care for this patient excluding time spent in the performance of separately billed services. This included personally viewing all current laboratories and imaging studies, medication reconciliation, outpatient chart review, and discussion with specialists. Pt was seen and examined in collaboration with Dr. Engle, please see addendum Admission and Anticipated Discharge Date Admission Date: August 16, 2023 Supervising Physician Co-Signing Physician Notes Attending addendum: The patient was seen and examined in medical floor She has been complaining of diarrhea without any abdominal pain, nausea and or vomiting Denies any leg pain or any pain in the ankle No fever and or chills On examination Lying in bed comfortably Hemodynamically stable Chest-decreased breath sounds bilaterally without any crackles Heart-S1-S2, regular Abdomen-benign Extremities-trace to 1+ edema bilaterally, right foot and ankle is bandaged 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 difficile, diarrhea seems to be secondary to use of IV antibiotic Will need to finish the course of antibiotic as ID recommendation Awaiting placement Agree with assessment and plan as outlined above by Cesia Engle Subjective Pt seen and evaluated in room 351-1 F/U Cellulitis. Tolerated PICC Placement. Offers no acute concerns. Denies f/c/s, chest pain, sob, n/v/d. Review of Systems Review of Systems: All systems reviewed & are unremarkable except as noted in HPI & below Physical Exam Physical Exam: Gen: WD/WN, NAD, A&O x3 HEENT: Normocephalic, atraumatic, conjunctivae moist, sclerae anicteric, mucous membranes moist. Lung: Clear to Auscultation bilaterally, no wheezes/rales/rhonchi Heart: Regular rate, regular rhythm, no murmurs, rubs, or gallops Abdomen: Soft, NT, ND +BS x 4 Extremities: No edema, R ankle wound, dressing cdi, RUE PICC Skin: Warm, no rash, negative turgor. Results & Data Results & Data Vital Signs (Past 12 Hours) Vital Signs Temp Pulse Resp BP Pulse Ox O2 Del Method 08/24/23 07:31 36.4 C L 67 16 111/70 96 Room Air 08/24/23 07:20 Room Air Laboratory Results [facility] 08/24/23 05:38 Sodium 136 Potassium 3.8 Chloride 99 Carbon Dioxide 26 BUN 34 H Creatinine 1.09 Glucose 119 H Calcium 10.4 H I have independently reviewed and interpreted patient's admitting labs including bmp Medications Administered Current Inpatient Medications Acetaminophen (Acetaminophen 325 Mg Tab) 650 mg PO Q4H PRN PRN Reason: pain/fever Stop: 09/15/23 10:15 Last Admin: 08/16/23 14:34 Dose: 650 mg Al Hydrox/Mg Hydrox/Simethicone (Aluminum/Magnesium Susp 30 Ml Udc) 30 ml PO Q6H PRN PRN Reason: Dyspepsia Stop: 09/15/23 10:15 Apixaban (Apixaban 2.5 Mg Tab) 2.5 mg PO BID [facility] Stop: 09/15/23 20:59 Last Admin: 08/24/23 07:51 Dose: 2.5 mg Aspirin (Aspirin 81 Mg Ectab) [facility] [place] [facility] [place]: 09/16/23 08:59 Last Admin: 08/24/23 07:51 Dose: 81 mg Bumetanide (Bumetanide 1 Mg Tab) 2 mg PO TIDM [facility] Stop: 09/15/23 11:59 Last Admin: 08/24/23 11:16 Dose: 2 mg Docusate Sodium (Docusate Sodium 100 Mg Cap) 100 mg PO TIDM [facility] Stop: 09/15/23 11:59 Last Admin: 08/24/23 11:16 Dose: Not Given Escitalopram Oxalate (Escitalopram Oxalate 10 Mg Tab) 10 mg PO [facility] Stop: 09/16/23 08:59 Last Admin: 08/24/23 07:52 Dose: 10 mg Fenofibrate (Fenofibrate Nanocrystallized 145 Mg Tablet) 145 mg PO QDD [facility] Stop: 09/17/23 16:29 Last Admin: 08/23/23 16:03 Dose: 145 mg Ferrous Sulfate (Ferrous Sulfate 325 Mg Tab) [facility] [place] [facility] [place]: 09/16/23 08:59 Last Admin: 08/24/23 07:52 Dose: 325 mg Gabapentin (Gabapentin 100 Mg Cap) 100 mg PO BIDM [facility] Stop: 09/15/23 16:59 Last Admin: 08/24/23 07:51 Dose: 100 mg Guaifenesin (Guaifenesin 600 Mg Tabcr) 1,200 mg PO Q12 [facility] Stop: 09/15/23 10:59 Last Admin: 08/24/23 07:53 Dose: 1,200 mg Heparin Sodium (Beef Lung) (Heparin 10 Unit/Ml 5 Ml Flush) 5 ml FLUSH PRN PRN PRN Reason: Flush Stop: 09/23/23 10:22 Last Admin: 08/24/23 11:16 Dose: 5 ml Cefepime HCl 2,000 mg/ Syringe 20 mls @ 5 mls/min IV Q12H [facility]; Protocol Stop: 08/29/23 22:59 Last Admin: 08/24/23 11:16 Dose: 5 mls/min Lactobacillus Acidophilus (Advanced Probiotic 1250 Mg Capsule) 2 cap PO DAILY [facility] Stop: 09/16/23 10:59 Last Admin: 08/24/23 07:53 Dose: 2 cap Lorazepam (Lorazepam 0.5 Mg Tab) 0.5 mg PO HS [facility] Stop: 09/15/23 20:59 Last Admin: 08/23/23 19:55 Dose: 0.5 mg Magnesium Hydroxide (Magnesium Hydroxide Susp 30 Ml Udc) 30 ml PO Q6H PRN PRN Reason: Constipation Stop: 09/15/23 10:15 Melatonin (Melatonin 3 Mg Tab) 3 mg PO HS PRN PRN Reason: Sleep Stop: 09/22/23 23:38 Last Admin: 08/24/23 00:01 Dose: 3 mg Metolazone (Metolazone 2.5 Mg Tablet) 2.5 mg PO [id number] [facility] Stop: 09/16/23 08:59 Last Admin: 08/24/23 07:53 Dose: 2.5 mg Multivitamins/Minerals (Cerovite Adv Formula Tab) 1 tab PO BIDM [facility] Stop: 09/15/23 16:59 Last Admin: 08/24/23 07:51 Dose: 1 tab Ondansetron HCl (Ondansetron Inj 2 Mg/Ml 2 Ml Vial) 4 mg IV Q6H PRN PRN Reason: Nausea Stop: 09/15/23 10:15 Pantoprazole Sodium (Pantoprazole 40 Mg Tab) 40 mg PO DAILYBB [facility] Stop: 09/16/23 06:29 Last Admin: 08/24/23 05:48 Dose: 40 mg Polyethylene Glycol (Polyethylene (Miralax) 17 Gm Pack) 17 gm PO DAILY PRN PRN Reason: Constipation Stop: 09/15/23 10:15 Potassium Chloride (Potassium Chloride Crtab 20 Meq Tabcr) 40 meq PO ACHS [facility] Stop: 09/15/23 12:29 Last Admin: 08/24/23 11:15 Dose: 40 meq Raloxifene HCl (Raloxifene Hcl 60 Mg Tab) 60 mg PO QAM [facility] Stop: 09/16/23 08:59 Last Admin: 08/24/23 07:51 Dose: 60 mg Spironolactone (Spironolactone 25 Mg Tab) 100 mg PO QAM [facility] Stop: 09/15/23 12:29 Last Admin: 08/24/23 07:52 Dose: 100 mg Spironolactone (Spironolactone 25 Mg Tab) 75 mg PO QDD [facility] Stop: 09/15/23 16:29 Last Admin: 08/23/23 16:04 Dose: 75 mg
[2023-08-24] MEDS: FENOFIBRATE NANOCRYSTALLIZED 145 MG TABLET PO SCH (15:57)
[2023-08-24] MEDS: LORazepam 0.5 MG TAB PO SCH (20:05)
[2023-08-25] MEDS: MELATONIN 3 MG TAB PO PRN ×2 (00:22→20:11)
[2023-08-25] MEDS: PANTOprazole 40 MG TAB PO SCH (06:06)
[2023-08-25] MEDS: POTASSIUM CHLORIDE CRTAB 20 MEQ TABCR PO SCH ×4 (07:50→20:15)
[2023-08-25] MEDS: BUMETANIDE 1 MG TAB PO SCH ×3 (07:51→16:47)
[2023-08-25] MEDS: GABAPENTIN 100 MG CAP PO SCH ×2 (07:52→16:51)
[2023-08-25] MEDS: DOCUSATE SODIUM 100 MG CAP PO SCH ×3 (07:52→16:52)
[2023-08-25] MEDS: CEROVITE ADV FORMULA TAB PO SCH ×2 (07:53→16:52)
[2023-08-25] MEDS: ASPIRIN 81 MG ECTAB PO SCH (07:54)
[2023-08-25] MEDS: APIXABAN 2.5 MG TAB PO SCH ×2 (07:54→20:12)
[2023-08-25] MEDS: FERROUS SULFATE 325 MG TAB PO SCH (07:55)
[2023-08-25] MEDS: ESCITALOPRAM OXALATE 10 MG TAB PO SCH (07:55)
[2023-08-25] MEDS: guaiFENesin 600 MG TABCR PO SCH ×2 (07:56→20:12)
[2023-08-25] MEDS: ADVANCED PROBIOTIC 1250 MG CAPSULE PO SCH (07:56)
[2023-08-25] MEDS: SPIRONOLACTONE 25 MG TAB PO SCH ×2 (07:57→16:46)
[2023-08-25] MEDS: RALOXIFENE HCL 60 MG TAB PO SCH (07:57)
[2023-08-25] MEDS: ACETAMINOPHEN 325 MG TAB PO PRN ×3 (11:33→19:26)
[2023-08-25] MEDS: CEFEPIME 2,000 MG in SYRINGE 0 ML IV SCH ×2 (13:10→22:13)
--- NOTE | 2023-08-25 16:35 | Hospitalist Progress Note ---
Date of Service August 25, 2023 Assessment & Plan (1) Open wound of right lower leg: (2) Cellulitis: (3) HTN (hypertension): (4) Dyslipidemia: (5) RADHA (obstructive sleep apnea): (6) Morbid obesity with BMI of 40.0-44.9, adult: (7) Mitral valve prolapse: (8) Depression: (9) Cough: Plan Ms. Pool is an 83-year-old female that presented to the ER today with complaints of worsening right lower leg wound. Patient was admitted July 13 until July 17 status post mechanical fall for which she sustained a fracture and underwent ORIF under the care of Dr. Garcia on 07/13 . On 08/03 she was seen as an outpatient by orthopedics for suture removal and was having a hard time with her boot and was not mobilizing due to the restriction of the boot however has noticed some erythema and swelling with dehi scence around the surgical incision site. Incidentally, pt reports a intermittently productive cough that has been occurring for the past few weeks. Additional past medical history includes alopecia areata, amaurosis fugax, RLS, right rotator cuff tendinopathy, prediabetes, CKDIII, hypertension, chronic right CHF, HLD, and osteoporosis. Postoperative infection to the right lower extremity ORIF hardware (deep) Postoperative wound infection RLE (superficial) Open wound of right lower leg: Cellulitis: Acute s/p ORIF right fibular fracture with syndesmotic repair on 07/13 08/03 seen by Ortho as outpatient suture removal has been using a boot Positive erythema/swelling with dehiscence ESR 66, serum CK ordered no leukocytosis, Lactate 2.1; will trend Ankle x-ray results: s/p ORIF right fibular fracture with syndesmotic repair. Hardware intact. No periprosthetic lucency. Lateral ankle soft tissue swelling w ith possible wound. Started on daptomycin plus Zosyn in ED; continue for now and adjust based on culture results Wound culture ordered MRI without contrast right ankle: 1. The examination is severely degraded by susceptibility artifact from a large buttress plate along the lateral cortex of the distal fibula. This entirely obscures the distal fibula and the majority of the overlying soft tissues. 2. There is a wound and soft tissue edema along the lateral aspect of the ankle. No organized fluid collection is seen to suggest abscess on this examination. 3. Plantar fasciitis. 4. Degenerative change at the tibiotalar articulation. 5. Tenosynovitis of the flexor hallucis longus tendon. Orthopedic consultation ID recommended debridement Would culture: pseudomonas;drainage culture: proteus ID updated recommendations: Ciprofloxacin 5 mg twice daily or cefepime 2 g every 8 x 6 weeks ID recommending the latter would be more aggressive management, and would promo te better wound healing Start cefepime 2 g IV every 8 hours x 6 weeks, currently on q12hr per renal function CBC, CMP while on IV cefepime Probiotics x 2 months PICC line placed weight bearing: TTWB Wound care: irrigate wound with saline using 35cc syringe and 18g blunt needle. Pat dry. Cover/fill wound with aquacel Ag and secure with optifoam. Change optifoam when > 50% wet with drainage Wound care placed wound vac today Cough: Acute CXR negative for acute cardiopulmonary disease Sputum culture ordered Mucinex p.o. every 12 ordered Cough improving Chronic HFrEF: MVP: Chronic Takes spironolactone and Bumex; continue Most recent ECHO 02/2022: Normal LV chamber size with mild concentric LVH. EF 55- 60%, no LV wall motion abnormalities, mild AV sclerosis. Euvolemic Continue present diuretics HLD: Chronic Continue fenofibrate Depression: Chronic Takes gabapentin and Lexapro; continue Prediabetes: a1c 5.6 on 08/16/23 Increased risk for delayed wound healing GERD: Chronic Takes omeprazole, add H2 gary Disposition: PCP: Karen Galo CODE STATUS: DNR/DNI VTE prophylaxis: On Eliquis postop Dispo: Pt will require 6 weeks of IV cefepime, pt resides at [facility], working on d/c planning to complete IV antibiotics --> [facility] accept 08/29. Pt was seen and examined in collaboration with Dr. 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 difficile as there is no more diarrhea Will need to finish the course of antibiotic as ID recommendation Awaiting placement Agree with assessment and plan as outlined above by RACHEL Young Dr Subjective Pt seen and evaluated in room 351-1 in follow up for Cellulitis. Tolerated PICC Placement. No acute concerns but has chronic epigastric discomfort that has been present for months. No N/V or changes to appetite. Denies F/C, chest pain, sob, n/v, dysuria or diarrhea. Review of Systems Review of Systems: At least ten systems reviewed and negative except as noted in the HPI. Physical Exam Physical Exam: Gen: WD/WN, NAD, A&O x3, resting comfortably HEENT: Normocephalic, atraumatic, conjunctivae moist, sclerae anicteric, mucous membranes moist Lung: Clear to Auscultation bilaterally, no wheezes/rales/rhonchi Heart: Regular rate, regular rhythm, no murmurs, rubs, or gallops Abdomen: Soft, NT, ND +BS x 4 Extremities: No edema, R ankle wound with dressing c/d/i Skin: Warm, no rash Results & Data Results & Data Vital Signs (Past 12 Hours) Vital Signs Temp Pulse Resp BP Pulse Ox O2 Del Method 08/25/23 15:06 36.4 C L 69 16 113/69 96 Room Air 08/25/23 07:21 36.5 C 69 16 119/72 93 Room Air Diagnostic Findings Ankle X-Ray 08/16/23 07:25 XR ankle RT min 3V routine CLINICAL HISTORY: Post op wound dehiscence. COMPARISON: Right ankle radiographs July 12, 2023. Fluoroscopic images the right ankle July 13, 2023. FINDINGS: Plate and screw internal fixation of the right fibular fracture is noted. Hardware is intact. Fracture alignment appears anatomic. Partial interval healing of the distal fibular fracture is noted. There is also evidence for syndesmotic repair. No ankle mortise widening is noted. No acute fractures are present. Lateral ankle soft tissue swelling and soft tissue irregularity may reflect the wound. Slight irregularity of the medial malleolus is noted with a few tiny adjacent ossific densities, similar to prior study. IMPRESSION: 1. Status post open reduction and internal fixation of the right fibular fracture with syndesmotic repair. Hardware intact. No periprosthetic lucency. 2. Lateral ankle soft tissue swelling with possible wound. ACT 112: Negative or not required by law. Electronically signed by: Lan Wilcox M.D. 08/16/2023 8:02 AM Ankle MRI 08/16/23 10:41 MRI OF THE RIGHT ANKLE WITHOUT IV CONTRAST CLINICAL HISTORY: Wound infection. COMPARISON STUDY: Radiographs of the right ankle dated 08/16/2023. TECHNIQUE: MRI of the right ankle was performed utilizing various T1 and T2- weighted sequences in the axial, sagittal, and coronal planes. IV contrast was not administered for this examination. The examination is severely degraded by susceptibility artifact from a buttress plate along the distal fibular cortex. FINDINGS: There is soft tissue edema along the lateral aspect of the ankle with an overlying wound. The distal fibula and overlying soft tissues are otherwise not evaluated due to susceptibility artifact from a buttress plate along the lateral cortex of the distal fibula. There is no evidence of fluid collection on the provided images. There is also susceptibility artifact from metallic plate along the lateral aspect of the distal tibia. There is no MRI evidence of acute fracture on the acquired sequences. The ankle mortise is intact. Mild degenerative change is seen along the posterior aspect of the articular surface of the distal tibia. There is no significant joint effusion. The Achilles tendon is normal in morphology and signal intensity. The anterior, posterior, and peroneal tendons appear intact. There is tenosynovitis of the flexor hallucis longus tendon, best seen on coronal image #15. The anterior tibiofibular and talofibular ligaments cannot be assessed due to susceptibility artifact. There is evidence of a nonspecific myositis of the regional musculature. There is plantar fasciitis at the calcaneal attachment of the plantar fascia, lateral greater than medial. Imaged portions of the plantar fascia appear intact. IMPRESSION: 1. The examination is severely degraded by susceptibility artifact from a large buttress plate along the lateral cortex of the distal fibula. This entirely obscures the distal fibula and the majority of the overlying soft tissues. 2. There is a wound and soft tissue edema along the lateral aspect of the ankle. No organized fluid collection is seen to suggest abscess on this examination. 3. Plantar fasciitis. 4. Degenerative change at the tibiotalar articulation. 5. Tenosynovitis of the flexor hallucis longus tendon. Dictated: 08/16/2023 12:19 PM Transcribed: 08/16/2023 12:40 PM Dionne [id number] NORA_Manuel [id number] Electronically signed by: Felipe Perera M.D. 08/16/2023 1:09 PM Chest X-Ray 08/16/23 10:46 XR chest 1V portable HISTORY: 83 years-old Female cough acute cough COMPARISON: 07/13/2023 TECHNIQUE: AP view of the chest FINDINGS: Cardiac silhouette is enlarged. Atherosclerosis of aorta. Unchanged mild right hemidiaphragmatic elevation. No pneumothorax, pleural effusion or airspace consolidation. Degenerative changes of the shoulders and spine. IMPRESSION: No acute process. ACT 112: Negative or not required by law. The above report was generated using voice recognition software. It may contain grammatical, syntax or spelling errors. Electronically signed by: Tulio Leroy M.D. 08/16/2023 11:[address] 08/17/23 15:54 CT SCAN OF THE RIGHT FOOT WITH IV CONTRAST CLINICAL HISTORY: Wound infection. COMPARISON STUDY: Radiographs and MRI of the right ankle dated 08/16/2023. TECHNIQUE: CT scan of the right foot is performed from the distal tibia and fibula to the base of the foot following the administration of 88 cc of Optiray 320. Images are reviewed in the axial, sagittal, and coronal planes. IV contrast was administered without complication. A dose lowering technique was utilized adhering to the principles of ALARA. The Examination is significantly degraded by streak artifact from metallic hardware. CT DOSE: 681.47 mGy.cm FINDINGS: The skeletal structures are osteopenic. There is posttraumatic deformity of the distal fibula with a buttress plate in place along the lateral cortex. The orthopedic hardware appears intact. A small plate is also seen on the lateral cortex of the distal tibia. There is an acute to subacute appearing fracture through the base of the first proximal phalanx. A wound overlies the lateral aspect of the distal fibula with underlying soft tissue edema and phlegmonous change. No fluid collection is seen at this site to indicate abscess. There is no erosive change identified in the underlying fibula. There is a crescentic fluid collection seen in the anterior soft tissues of the ankle on axial image #22. This measures approximately 4 x 4 x 1 cm and is remote from the wound. There is also significant soft tissue inflammation along the plantar aspect of the heel. A serpiginous peripherally enhancing fluid collection below the calcaneus on image #150 measures 1.2 x 2.1 x 1.2 cm. There is apparent bony erosion along the dorsal/plantar aspect of the calcaneus in this region seen on axial image #222. The ankle mortise is anatomic alignment. There are small calcified bone fragments within the joint space. Osteoarthritic change is seen throughout the foot. The Achilles tendon is intact as visualized. There is generalized atrophy of the regional musculature. A plantar heel spur is noted. IMPRESSION: 1. The examination is degraded by streak artifact from metallic hardware. 2. There is posttraumatic deformity and postsurgical change involving the distal fibula as above. 3. A wound overlies the distal fibula with surrounding cellulitis. No fluid collection is seen at this site to indicate abscess. 4. There is a serpiginous fluid collection in the plantar soft tissues of the heel as above with surrounding cellulitis. This is indeterminate, but likely represents abscess. There is erosive change within the adjacent dorsal/plantar calcaneal cortex. This is suspicious for osteomyelitis. Clinical correlation will be essential. 5. An indeterminant thick walled fluid collection is seen in the deep soft tissues of the anterior lopez. This measures approximately 4 x 4 x 1 cm and is remote from the wound overlying the fibula. This may represent a chronic seroma or liquefied hematoma. The sterility of this fluid cannot be assessed by imaging and clinical correlation will be essential. 6. Acute to subacute appearing fracture through the base of the first proximal phalanx. Correlate clinically. ACT 112: Negative or not required by law. Electronically signed by: Felipe Perera M.D. 08/17/2023 8:38 PM
[2023-08-25] MEDS: FENOFIBRATE NANOCRYSTALLIZED 145 MG TABLET PO SCH (16:45)
[2023-08-25] MEDS: LORazepam 0.5 MG TAB PO SCH (20:11)
[2023-08-25] MEDS: FAMOTIDINE 20 MG TAB PO SCH (20:13)
[2023-08-26] MEDS: PANTOprazole 40 MG TAB PO SCH (05:19)
[2023-08-26] MEDS: ACETAMINOPHEN 325 MG TAB PO PRN ×2 (06:25→20:02)
[2023-08-26 06:35] LABS: Hematocrit (blood only) 39.2 % (37.0-47.0); Hemoglobin 12.7 g/dl (12.0-16.0); Mean Corpuscular Hgb Conc 32.4 g/dL (32.0-36.0); Mean Corpuscular Volume 92.7 fL (80.0-100.0); Mean Platelet Volume 9.8 fL (9.4-12.4); Platelet Count 397 K/uL (130-400); RDW Coefficient of Variation 15.3 % (11.5-14.5); Red Blood Count 4.23 M/uL (4.20-5.40); White Blood Count 6.55 K/ul (4.8-10.8)
[2023-08-26 06:59] LABS: BUN Creatinine Ratio 38.9 (10-20); Calcium 10.1 mg/dl (8.6-10.3); Creatinine Clr Calc Pharmacy 34.6 ml/min; Est GFR (African American) 43.2 ml/min; Est GFR (Non-African American) 37.3 ml/min; Potassium 3.3 mmol/L (3.5-5.1)
[2023-08-26] MEDS: POTASSIUM CHLORIDE CRTAB 20 MEQ TABCR PO SCH ×4 (09:08→20:04)
[2023-08-26] MEDS: BUMETANIDE 1 MG TAB PO SCH (09:09)
[2023-08-26] MEDS: DOCUSATE SODIUM 100 MG CAP PO SCH ×3 (09:10→17:37)
[2023-08-26] MEDS: guaiFENesin 600 MG TABCR PO SCH ×2 (09:11→20:03)
[2023-08-26] MEDS: ESCITALOPRAM OXALATE 10 MG TAB PO SCH (09:12)
[2023-08-26] MEDS: CEROVITE ADV FORMULA TAB PO SCH ×2 (09:12→17:38)
[2023-08-26] MEDS: GABAPENTIN 100 MG CAP PO SCH ×2 (09:12→17:37)
[2023-08-26] MEDS: FAMOTIDINE 20 MG TAB PO SCH ×2 (09:13→20:02)
[2023-08-26] MEDS: ASPIRIN 81 MG ECTAB PO SCH (09:13)
[2023-08-26] MEDS: ADVANCED PROBIOTIC 1250 MG CAPSULE PO SCH (09:14)
[2023-08-26] MEDS: APIXABAN 2.5 MG TAB PO SCH ×2 (09:14→20:03)
[2023-08-26] MEDS: FERROUS SULFATE 325 MG TAB PO SCH (09:14)
[2023-08-26] MEDS: metOLazone 2.5 MG TABLET PO SCH (09:15)
[2023-08-26] MEDS: RALOXIFENE HCL 60 MG TAB PO SCH (09:15)
[2023-08-26] MEDS: SPIRONOLACTONE 25 MG TAB PO SCH ×2 (09:16→17:35)
[2023-08-26] MEDS ORDERED: POTASSIUM CHLORIDE CRTAB 20 MEQ TABCR PO STA (09:21)
[2023-08-26] MEDS: CEFEPIME 2,000 MG in SYRINGE 0 ML IV SCH ×2 (12:43→22:35)
--- NOTE | 2023-08-26 16:43 | Hospitalist Progress Note ---
Date of Service August 26, 2023 Assessment & Plan (1) Open wound of right lower leg: (2) Cellulitis: (3) HTN (hypertension): (4) Dyslipidemia: (5) RADHA (obstructive sleep apnea): (6) Morbid obesity with BMI of 40.0-44.9, adult: (7) Mitral valve prolapse: (8) Depression: (9) Cough: Plan Ms. Pool is an 83-year-old female that presented to the ER today with complaints of worsening right lower leg wound. Patient was admitted July 13 until July 17 status post mechanical fall for which she sustained a fracture and underwent ORIF under the care of Dr. Garcia on 07/13 . On 08/03 she was seen as an outpatient by orthopedics for suture removal and was having a hard time with her boot and was not mobilizing due to the restriction of the boot however has noticed some erythema and swelling with dehi scence around the surgical incision site. Incidentally, pt reports a intermittently productive cough that has been occurring for the past few weeks. Additional past medical history includes alopecia areata, amaurosis fugax, RLS, right rotator cuff tendinopathy, prediabetes, CKDIII, hypertension, chronic right CHF, HLD, and osteoporosis. Postoperative infection to the right lower extremity ORIF hardware (deep) Postoperative wound infection RLE (superficial) Open wound of right lower leg: Cellulitis: Acute s/p ORIF right fibular fracture with syndesmotic repair on 07/13 08/03 seen by Ortho as outpatient suture removal has been using a boot Positive erythema/swelling with dehiscence ESR 66, serum CK ordered no leukocytosis, Lactate 2.1; will trend Ankle x-ray results: s/p ORIF right fibular fracture with syndesmotic repair. Hardware intact. No periprosthetic lucency. Lateral ankle soft tissue swelling w ith possible wound. Started on daptomycin plus Zosyn in ED; continue for now and adjust based on culture results Wound culture ordered MRI without contrast right ankle: 1. The examination is severely degraded by susceptibility artifact from a large buttress plate along the lateral cortex of the distal fibula. This entirely obscures the distal fibula and the majority of the overlying soft tissues. 2. There is a wound and soft tissue edema along the lateral aspect of the ankle. No organized fluid collection is seen to suggest abscess on this examination. 3. Plantar fasciitis. 4. Degenerative change at the tibiotalar articulation. 5. Tenosynovitis of the flexor hallucis longus tendon. Orthopedic consultation ID recommended debridement Would culture: pseudomonas;drainage culture: proteus ID updated recommendations: Ciprofloxacin 5 mg twice daily or cefepime 2 g every 8 x 6 weeks ID recommending the latter would be more aggressive management, and would promo te better wound healing Start cefepime 2 g IV every 8 hours x 6 weeks, currently on q12hr per renal function CBC, CMP while on IV cefepime Probiotics x 2 months PICC line placed Weight bearing: TTWB Wound care: irrigate wound with saline using 35cc syringe and 18g blunt needle. Pat dry. Cover/fill wound with aquacel Ag and secure with optifoam. Change optifoam when > 50% wet with drainage Wound care placed wound vac 08/25/22 Cough: CXR negative for acute cardiopulmonary disease Sputum culture ordered Mucinex p.o. every 12 ordered Cough improving Chronic HFrEF: MVP: Chronic Takes spironolactone and Bumex Most recent ECHO 02/2022: Normal LV chamber size with mild concentric LVH. EF 55- 60%, no LV wall motion abnormalities, mild AV sclerosis. Euvolemic Noted to have JULIO, lyte abnormalities 08/26 - holding Bumex for one day and resuming in AM, continue holding metolazone for now HLD: Chronic Continue fenofibrate Depression: Chronic Takes gabapentin and Lexapro; continue Prediabetes: a1c 5.6 on 08/16/23 Increased risk for delayed wound healing GERD: Chronic Takes omeprazole, add H2 gary with improvement to dyspepsia, continue Disposition: PCP: Karen Galo CODE STATUS: DNR/DNI VTE prophylaxis: On Eliquis postop Dispo: Pt will require 6 weeks of IV cefepime, pt resides at [facility] working on d/c planning to complete IV antibiotics --> [facility] can accept Tuesday, 08/29. Pt was seen and examined in collaboration with Dr. Engle, please see addendum Admission and Anticipated Discharge Date Admission Date: August 16, 2023 Supervising Physician Co-Signing Physician Notes Attending addendum: The patient was seen and examined in medical floor Her diarrhea continues Denies any leg pain or any pain in the ankle No fever and or chills Wound VAC has been applied On examination Lying in bed comfortably Hemodynamically stable Chest-decreased breath sounds bilaterally without any crackles Heart-S1-S2, regular Abdomen-benign Extremities-trace to 1+ edema bilaterally, right foot and ankle is bandaged [employer]-alert and awake Her labs, medications reviewed C Diff has been negative and Imodium was prescribed for continuing diarrhea Will need to finish the course of antibiotic as ID recommendation Holding diuretics today for increasing creatinine and will monitor Awaiting placement Agree with assessment and plan as outlined above by RACHEL Young Dr Subjective Pt seen and evaluated in room 351-1 in follow up for Cellulitis. Tolerated wound vac placement. Chronic epigastric discomfort improved with trial of pepcid yesterday; plan to continue. No N/V or changes to appetite. Denies F/C, chest pain, sob, n/v, dysuria or diarrhea. Review of Systems Review of Systems: At least ten systems reviewed and negative except as noted in the HPI. Physical Exam Physical Exam: Gen: WD/WN, NAD, A&O x3, resting comfortably HEENT: Normocephalic, atraumatic, conjunctivae moist, sclerae anicteric, mucous membranes moist Lung: Clear to Auscultation bilaterally, no wheezes/rales/rhonchi Heart: Regular rate, regular rhythm, no murmurs, rubs, or gallops Abdomen: Soft, NT, ND +BS x 4 Extremities: 1+, BLE edema, R ankle wound with dressing c/d/i Skin: Warm, no rash Results & Data Results & Data Vital Signs (Past 12 Hours) Vital Signs Temp Pulse Pulse Resp BP BP Pulse Ox 08/26/23 14:49 36.5 C 86 16 125/78 93 08/26/23 12:45 37.1 C 74 16 140/80 94 08/26/23 07:40 36.5 C 65 17 110/70 95 O2 Del Method 08/26/23 14:49 Room Air 08/26/23 12:45 Room Air 08/26/23 07:40 Room Air Laboratory Results Short CBC 08/26/23 Range/Units 06:04 WBC 6.55 (4.8-10.8) K/ul Hgb 12.7 (12.0-16.0) g/dl Hct 39.2 (37.0-47.0) % Plt Count 397 (130-400) K/uL BMP 08/26/23 06:04 Sodium 133 L Potassium 3.3 L Chloride 97 L Carbon Dioxide 26 BUN 51 H Creatinine 1.31 H Glucose 120 H Calcium 10.1 Diagnostic Findings Ankle X-Ray 08/16/23 07:25 XR ankle RT min 3V routine CLINICAL HISTORY: Post op wound dehiscence. COMPARISON: Right ankle radiographs July 12, 2023. Fluoroscopic images the right ankle July 13, 2023. FINDINGS: Plate and screw internal fixation of the right fibular fracture is noted. Hardware is intact. Fracture alignment appears anatomic. Partial interval healing of the distal fibular fracture is noted. There is also evidence for syndesmotic repair. No ankle mortise widening is noted. No acute fractures are present. Lateral ankle soft tissue swelling and soft tissue irregularity may reflect the wound. Slight irregularity of the medial malleolus is noted with a few tiny adjacent ossific densities, similar to prior study. IMPRESSION: 1. Status post open reduction and internal fixation of the right fibular fracture with syndesmotic repair. Hardware intact. No periprosthetic lucency. 2. Lateral ankle soft tissue swelling with possible wound. ACT 112: Negative or not required by law. Electronically signed by: Lan Wilcox M.D. 08/16/2023 8:02 AM Ankle MRI 08/16/23 10:41 MRI OF THE RIGHT ANKLE WITHOUT IV CONTRAST CLINICAL HISTORY: Wound infection. COMPARISON STUDY: Radiographs of the right ankle dated 08/16/2023. TECHNIQUE: MRI of the right ankle was performed utilizing various T1 and T2- weighted sequences in the axial, sagittal, and coronal planes. IV contrast was not administered for this examination. The examination is severely degraded by susceptibility artifact from a buttress plate along the distal fibular cortex. FINDINGS: There is soft tissue edema along the lateral aspect of the ankle with an overlying wound. The distal fibula and overlying soft tissues are otherwise not evaluated due to susceptibility artifact from a buttress plate along the lateral cortex of the distal fibula. There is no evidence of fluid collection on the provided images. There is also susceptibility artifact from metallic plate along the lateral aspect of the distal tibia. There is no MRI evidence of acute fracture on the acquired sequences. The ankle mortise is intact. Mild degenerative change is seen along the posterior aspect of the articular surface of the distal tibia. There is no significant joint effusion. The Achilles tendon is normal in morphology and signal intensity. The anterior, posterior, and peroneal tendons appear intact. There is tenosynovitis of the flexor hallucis longus tendon, best seen on coronal image #15. The anterior tibiofibular and talofibular ligaments cannot be assessed due to susceptibility artifact. There is evidence of a nonspecific myositis of the regional musculature. There is plantar fasciitis at the calcaneal attachment of the plantar fascia, lateral greater than medial. Imaged portions of the plantar fascia appear intact. IMPRESSION: 1. The examination is severely degraded by susceptibility artifact from a large buttress plate along the lateral cortex of the distal fibula. This entirely obscures the distal fibula and the majority of the overlying soft tissues. 2. There is a wound and soft tissue edema along the lateral aspect of the ankle. No organized fluid collection is seen to suggest abscess on this examination. 3. Plantar fasciitis. 4. Degenerative change at the tibiotalar articulation. 5. Tenosynovitis of the flexor hallucis longus tendon. Dictated: 08/16/2023 12:19 PM Transcribed: 08/16/2023 12:40 PM Dionne [id number] [facility] [id number] Electronically signed by: Felipe Perera M.D. 08/16/2023 1:09 PM Chest X-Ray 08/16/23 10:46 XR chest 1V portable HISTORY: 83 years-old Female cough acute cough COMPARISON: 07/13/2023 TECHNIQUE: AP view of the chest FINDINGS: Cardiac silhouette is enlarged. Atherosclerosis of aorta. Unchanged mild right hemidiaphragmatic elevation. No pneumothorax, pleural effusion or airspace consolidation. Degenerative changes of the shoulders and spine. IMPRESSION: No acute process. ACT 112: Negative or not required by law. The above report was generated using voice recognition software. It may contain grammatical, syntax or spelling errors. Electronically signed by: Tulio Leroy M.D. 08/16/2023 11:[address] 08/17/23 15:54 CT SCAN OF THE RIGHT FOOT WITH IV CONTRAST CLINICAL HISTORY: Wound infection. COMPARISON STUDY: Radiographs and MRI of the right ankle dated 08/16/2023. TECHNIQUE: CT scan of the right foot is performed from the distal tibia and fibula to the base of the foot following the administration of 88 cc of Optiray 320. Images are reviewed in the axial, sagittal, and coronal planes. IV contrast was administered without complication. A dose lowering technique was utilized adhering to the principles of ALARA. The Examination is significantly degraded by streak artifact from metallic hardware. CT DOSE: 681.47 mGy.cm FINDINGS: The skeletal structures are osteopenic. There is posttraumatic deformity of the distal fibula with a buttress plate in place along the lateral cortex. The orthopedic hardware appears intact. A small plate is also seen on the lateral cortex of the distal tibia. There is an acute to subacute appearing fracture through the base of the first proximal phalanx. A wound overlies the l ateral aspect of the distal fibula with underlying soft tissue edema and phlegmonous change. No fluid collection is seen at this site to indicate abscess. There is no erosive change identified in the underlying fibula. There is a crescentic fluid collection seen in the anterior soft tissues of the ankle on axial image #22. This measures approximately 4 x 4 x 1 cm and is remote from the wound. There is also significant soft tissue inflammation along the plantar aspect of the heel. A serpiginous peripherally enhancing fluid collection below the calcaneus on image #150 measures 1.2 x 2.1 x 1.2 cm. There is apparent bony erosion along the dorsal/plantar aspect of the calcaneus in this region seen on axial image #222. The ankle mortise is anatomic alignment. There are small calcified bone fragments within the joint space. Osteoarthritic change is seen throughout the foot. The Achilles tendon is intact as visualized. There is generalized atrophy of the regional musculature. A plantar heel spur is noted. IMPRESSION: 1. The examination is degraded by streak artifact from metallic hardware. 2. There is posttraumatic deformity and postsurgical change involving the distal fibula as above. 3. A wound overlies the distal fibula with surrounding cellulitis. No fluid collection is seen at this site to indicate abscess. 4. There is a serpiginous fluid collection in the plantar soft tissues of the heel as above with surrounding cellulitis. This is indeterminate, but likely represents abscess. There is erosive change within the adjacent dorsal/plantar calcaneal cortex. This is suspicious for osteomyelitis. Clinical correlation will be essential. 5. An indeterminant thick walled fluid collection is seen in the deep soft tissues of the anterior lopez. This measures approximately 4 x 4 x 1 cm and is remote from the wound overlying the fibula. This may represent a chronic seroma or liquefied hematoma. The sterility of this fluid cannot be assessed by imaging and clinical correlation will be essential. 6. Acute to subacute appearing fracture through the base of the first proximal phalanx. Correlate clinically. ACT 112: Negative or not required by law. Electronically signed by: Felipe Perera M.D. 08/17/2023 8:38 PM
[2023-08-26] MEDS: FENOFIBRATE NANOCRYSTALLIZED 145 MG TABLET PO SCH (17:35)
[2023-08-26] MEDS: LOPERAMIDE HCL 2 MG CAP PO PRN (17:43)
[2023-08-26] MEDS: LORazepam 0.5 MG TAB PO SCH (20:02)
[2023-08-26] MEDS: MELATONIN 3 MG TAB PO PRN (20:02)
[2023-08-27] MEDS: PANTOprazole 40 MG TAB PO SCH (05:51)
[2023-08-27 07:27] LABS: Hematocrit (blood only) 39.4 % (37.0-47.0); Hemoglobin 12.8 g/dl (12.0-16.0); Mean Corpuscular Hemoglobin 29.8 pg (25.0-34.0); Mean Corpuscular Hgb Conc 32.5 g/dL (32.0-36.0); Mean Corpuscular Volume 91.8 fL (80.0-100.0); Mean Platelet Volume 10.3 fL (9.4-12.4); Platelet Count 405 K/uL (130-400); RDW Coefficient of Variation 14.9 % (11.5-14.5); RDW Standard Deviation 50.3 fL (36.4-46.3); Red Blood Count 4.29 M/uL (4.20-5.40); White Blood Count 6.74 K/ul (4.8-10.8)
[2023-08-27 07:52] LABS: BUN Creatinine Ratio 41.5 (10-20); Calcium 10.5 mg/dl (8.6-10.3); Creatinine Clr Calc Pharmacy 38.5 ml/min; Est GFR (Non-African American) 42.3 ml/min; Magnesium 2.1 mg/dl (1.7-2.4); Potassium 3.5 mmol/L (3.5-5.1)
[2023-08-27] MEDS: GABAPENTIN 100 MG CAP PO SCH ×2 (08:15→17:08)
[2023-08-27] MEDS: guaiFENesin 600 MG TABCR PO SCH ×2 (08:15→20:18)
[2023-08-27] MEDS: ADVANCED PROBIOTIC 1250 MG CAPSULE PO SCH (08:15)
[2023-08-27] MEDS: ESCITALOPRAM OXALATE 10 MG TAB PO SCH (08:16)
[2023-08-27] MEDS: FERROUS SULFATE 325 MG TAB PO SCH (08:16)
[2023-08-27] MEDS: RALOXIFENE HCL 60 MG TAB PO SCH (08:16)
[2023-08-27] MEDS: CEROVITE ADV FORMULA TAB PO SCH ×2 (08:16→17:08)
[2023-08-27] MEDS: FAMOTIDINE 20 MG TAB PO SCH ×2 (08:16→20:17)
[2023-08-27] MEDS: ASPIRIN 81 MG ECTAB PO SCH (08:16)
[2023-08-27] MEDS: SPIRONOLACTONE 25 MG TAB PO SCH ×2 (08:16→17:07)
[2023-08-27] MEDS: APIXABAN 2.5 MG TAB PO SCH ×2 (08:17→20:18)
[2023-08-27] MEDS: POTASSIUM CHLORIDE CRTAB 20 MEQ TABCR PO SCH ×4 (08:25→20:17)
[2023-08-27] MEDS: DOCUSATE SODIUM 100 MG CAP PO SCH ×3 (09:04→17:07)
[2023-08-27] MEDS: LOPERAMIDE HCL 2 MG CAP PO PRN ×3 (10:11→21:37)
[2023-08-27] MEDS: CEFEPIME 2,000 MG in SYRINGE 0 ML IV SCH ×2 (12:03→22:10)
--- NOTE | 2023-08-27 16:13 | Hospitalist Progress Note ---
Date of Service August 27, 2023 Assessment & Plan (1) Open wound of right lower leg: (2) Cellulitis: (3) HTN (hypertension): (4) Dyslipidemia: (5) RADHA (obstructive sleep apnea): (6) Morbid obesity with BMI of 40.0-44.9, adult: (7) Mitral valve prolapse: (8) Depression: (9) Cough: Plan Ms. Pool is an 83-year-old female that presented to the ER today with complaints of worsening right lower leg wound. Patient was admitted July 13 until July 17 status post mechanical fall for which she sustained a fracture and underwent ORIF under the care of Dr. Garcia on 07/13 . On 08/03 she was seen as an outpatient by orthopedics for suture removal and was having a hard time with her boot and was not mobilizing due to the restriction of the boot however has noticed some erythema and swelling with dehi scence around the surgical incision site. Incidentally, pt reports a intermittently productive cough that has been occurring for the past few weeks. Additional past medical history includes alopecia areata, amaurosis fugax, RLS, right rotator cuff tendinopathy, prediabetes, CKDIII, hypertension, chronic right CHF, HLD, and osteoporosis. Postoperative infection to the right lower extremity ORIF hardware (deep) Postoperative wound infection RLE (superficial) Open wound of right lower leg: Cellulitis: Acute s/p ORIF right fibular fracture with syndesmotic repair on 07/13 08/03 seen by Ortho as outpatient suture removal has been using a boot Positive erythema/swelling with dehiscence ESR 66, serum CK ordered no leukocytosis, Lactate 2.1; will trend Ankle x-ray results: s/p ORIF right fibular fracture with syndesmotic repair. Hardware intact. No periprosthetic lucency. Lateral ankle soft tissue swelling w ith possible wound. Started on daptomycin plus Zosyn in ED; continue for now and adjust based on culture results Wound culture ordered MRI without contrast right ankle: 1. The examination is severely degraded by susceptibility artifact from a large buttress plate along the lateral cortex of the distal fibula. This entirely obscures the distal fibula and the majority of the overlying soft tissues. 2. There is a wound and soft tissue edema along the lateral aspect of the ankle. No organized fluid collection is seen to suggest abscess on this examination. 3. Plantar fasciitis. 4. Degenerative change at the tibiotalar articulation. 5. Tenosynovitis of the flexor hallucis longus tendon. Orthopedic consultation ID recommended debridement Would culture: pseudomonas;drainage culture: proteus ID updated recommendations: Ciprofloxacin 5 mg twice daily or cefepime 2 g every 8 x 6 weeks ID recommending the latter would be more aggressive management, and would promo te better wound healing Start cefepime 2 g IV every 8 hours x 6 weeks, currently on q12hr per renal function CBC, CMP while on IV cefepime Probiotics x 2 months PICC line placed Weight bearing: TTWB Wound care: irrigate wound with saline using 35cc syringe and 18g blunt needle. Pat dry. Cover/fill wound with aquacel Ag and secure with optifoam. Change optifoam when > 50% wet with drainage Wound care placed wound vac 08/25/22 Jonny stable with the wound VAC in place, leg swelling has been improving with elevation, denies any pain Will continue current antibiotic and possible placement on Tuesday Diarrhea Likely secondary to antibiotic C. difficile has been negative Has been getting Imodium as needed Cough: CXR negative for acute cardiopulmonary disease Sputum culture ordered Mucinex p.o. every 12 ordered Cough improving Chronic HFrEF: MVP: Chronic Takes spironolactone and Bumex Most recent ECHO 02/2022: Normal LV chamber size with mild concentric LVH. EF 55- 60%, no LV wall motion abnormalities, mild AV sclerosis. Euvolemic Noted to have JULIO, lyte abnormalities 08/26 - holding Bumex for one day and resuming in AM, continue holding metolazone for now Creatinine went up a little day before yesterday Held Bumex and metolazone for 1 day Creatinine has been normalized and restart Bumex and hold metolazone for now HLD: Chronic Continue fenofibrate Depression: Chronic Takes gabapentin and Lexapro; continue Prediabetes: a1c 5.6 on 08/16/23 Increased risk for delayed wound healing GERD: Chronic Takes omeprazole, add H2 gary with improvement to dyspepsia, continue Disposition: PCP: Karen Galo CODE STATUS: DNR/DNI VTE prophylaxis: On Eliquis postop Dispo: Pt will require 6 weeks of IV cefepime, [facility] planning to complete IV antibiotics --> [facility] accept 08/29. Admission and Anticipated Discharge Date Admission Date: August 16, 2023 Subjective 08/27/2023 The patient was seen and examined in medical floor She has been stable and the diarrhea seems to be controlled with Imodium Denies any fever and or chills and no pain in the legs Review of Systems Review of Systems: All systems reviewed and are unremarkable except as noted below Physical Exam Physical Exam: Lying in bed comfortably Constitutional: average body habitus; not ill appearing Eyes: PERRL, conjunctivae normal, anicteric sclerae ENMT: external ear and nose normal, oropharynx normal Neck: trachea midline, no thyromegaly Respiratory: no respiratory distress Auscultation: lungs clear to auscultation bilaterally and + crackles Cardiovascular: Rate/Rhythm: regular rate and regular rhythm; not tachycardic Heart Sounds: normal S1 and normal S2; no murmur Extremities: + edema Gastrointestinal (Abdomen): Inspection/Auscultation: normal bowel sounds; abdomen not distended Percussion/Palpation: + abdomen tender (Mildly tender) and abdomen soft Musculoskeletal: No acute arthritis. Has right lower leg and lateral ankle area wound with wound VAC in situ Neurologic: normal touch/pain/proprioception and moves all extremities; no focal motor deficits Lymphatic: no cervical or axillary lymphadenopathy Results & Data Results & Data Vital Signs (Past 12 Hours) Vital Signs Temp Pulse Resp BP Pulse Ox O2 Del Method 08/27/23 07:10 36.6 C 60 16 114/71 95 Room Air Laboratory Results Short CBC 08/27/23 Range/Units 06:28 WBC 6.74 (4.8-10.8) K/ul Hgb 12.8 (12.0-16.0) g/dl Hct 39.4 (37.0-47.0) % Plt Count 405 H (130-400) K/uL BMP 08/27/23 06:28 Sodium 133 L Potassium 3.5 Chloride 97 L Carbon Dioxide 25 BUN 49 H Creatinine 1.18 Glucose 115 H Calcium 10.5 H Medications Administered Current Inpatient Medications Acetaminophen (Acetaminophen 325 Mg Tab) 650 mg PO Q4H PRN PRN Reason: pain/fever Stop: 09/15/23 10:15 Last Admin: 08/26/23 20:02 Dose: 650 mg Al Hydrox/Mg Hydrox/Simethicone (Aluminum/Magnesium Susp 30 Ml Udc) 30 ml PO Q6H PRN PRN Reason: Dyspepsia Stop: 09/15/23 10:15 Apixaban (Apixaban 2.5 Mg Tab) 2.5 mg PO BID [facility] Stop: 09/15/23 20:59 Last Admin: 08/27/23 08:17 Dose: 2.5 mg Aspirin (Aspirin 81 Mg Ectab) 81 mg PO QAM [facility] Stop: 09/16/23 08:59 Last Admin: 08/27/23 08:16 Dose: 81 mg Bumetanide (Bumetanide 1 Mg Tab) 2 mg PO TIDM [facility] Stop: 09/15/23 11:59 Last Admin: 08/26/23 09:09 Dose: 2 mg Docusate Sodium (Docusate Sodium 100 Mg Cap) 100 mg PO TIDM [facility] Stop: 09/15/23 11:59 Last Admin: 08/27/23 12:04 Dose: Not Given Escitalopram Oxalate (Escitalopram Oxalate 10 Mg Tab) 10 mg PO QAM [facility] Stop: 09/16/23 08:59 Last Admin: 08/27/23 08:16 Dose: 10 mg Famotidine (Famotidine 20 Mg Tab) 20 mg PO BID [facility] Stop: 09/24/23 20:59 Last Admin: 08/27/23 08:16 Dose: 20 mg Fenofibrate (Fenofibrate Nanocrystallized 145 Mg Tablet) 145 mg PO QDD [facility] Stop: 09/17/23 16:29 Last Admin: 08/26/23 17:35 Dose: 145 mg Ferrous Sulfate (Ferrous Sulfate 325 Mg Tab) 325 mg PO QAM [facility] Stop: 09/16/23 08:59 Last Admin: 08/27/23 08:16 Dose: 325 mg Gabapentin (Gabapentin 100 Mg Cap) 100 mg PO BIDM [facility] Stop: 09/15/23 16:59 Last Admin: 08/27/23 08:15 Dose: 100 mg Guaifenesin (Guaifenesin 600 Mg Tabcr) 1,200 mg PO Q12 [facility] Stop: 09/15/23 10:59 Last Admin: 08/27/23 08:15 Dose: 1,200 mg Heparin Sodium (Beef Lung) (Heparin 10 Unit/Ml 5 Ml Flush) 5 ml FLUSH PRN PRN PRN Reason: Flush Stop: 09/23/23 10:22 Last Admin: 08/24/23 22:52 Dose: 5 ml Cefepime HCl 2,000 mg/ Syringe 20 mls @ 5 mls/min IV Q12H [facility]; Protocol Stop: 08/29/23 22:59 Last Admin: 08/27/23 12:03 Dose: 5 mls/min Lactobacillus Acidophilus (Advanced Probiotic 1250 Mg Capsule) 2 cap PO DAILY [facility] Stop: 09/16/23 10:59 Last Admin: 08/27/23 08:15 Dose: 2 cap Loperamide HCl (Loperamide Hcl 2 Mg Cap) 2 mg PO Q3H PRN PRN Reason: Diarrhea Stop: 09/25/23 15:21 Last Admin: 08/27/23 13:36 Dose: 2 mg Lorazepam (Lorazepam 0.5 Mg Tab) 0.5 mg PO HS [facility] Stop: 09/15/23 20:59 Last Admin: 08/26/23 20:02 Dose: 0.5 mg Magnesium Hydroxide (Magnesium Hydroxide Susp 30 Ml Udc) 30 ml PO Q6H PRN PRN Reason: Constipation Stop: 09/15/23 10:15 Melatonin (Melatonin 3 Mg Tab) 3 mg PO HS PRN PRN Reason: Sleep Stop: 09/22/23 23:38 Last Admin: 08/26/23 20:02 Dose: 3 mg Metolazone (Metolazone 2.5 Mg Tablet) 2.5 mg PO [id number] [facility] Stop: 09/16/23 08:59 Last Admin: 08/26/23 09:15 Dose: 2.5 mg Multivitamins/Minerals (Cerovite Adv Formula Tab) 1 tab PO BIDM [facility] Stop: 09/15/23 16:59 Last Admin: 08/27/23 08:16 Dose: 1 tab Ondansetron HCl (Ondansetron Inj 2 Mg/Ml 2 Ml Vial) 4 mg IV Q6H PRN PRN Reason: Nausea Stop: 09/15/23 10:15 Last Admin: 08/24/23 21:27 Dose: 4 mg Pantoprazole Sodium (Pantoprazole 40 Mg Tab) 40 mg PO DAILYBB [facility] Stop: 09/16/23 06:29 Last Admin: 08/27/23 05:51 Dose: 40 mg Polyethylene Glycol (Polyethylene (Miralax) 17 Gm Pack) 17 gm PO DAILY PRN PRN Reason: Constipation Stop: 09/15/23 10:15 Potassium Chloride (Potassium Chloride Crtab 20 Meq Tabcr) 40 meq PO ACHS [facility] Stop: 09/15/23 12:29 Last Admin: 08/27/23 12:34 Dose: 40 meq Raloxifene HCl (Raloxifene Hcl 60 Mg Tab) 60 mg PO QAM [facility] Stop: 09/16/23 08:59 Last Admin: 08/27/23 08:16 Dose: 60 mg Spironolactone (Spironolactone 25 Mg Tab) 100 mg PO QAM [facility] Stop: 09/15/23 12:29 Last Admin: 08/27/23 08:16 Dose: 100 mg Spironolactone (Spironolactone 25 Mg Tab) 75 mg PO QDD [facility] Stop: 09/15/23 16:29 Last Admin: 08/26/23 17:35 Dose: 75 mg
[2023-08-27] MEDS: FENOFIBRATE NANOCRYSTALLIZED 145 MG TABLET PO SCH (17:08)
[2023-08-27] MEDS: MELATONIN 3 MG TAB PO PRN (20:17)
[2023-08-27] MEDS: LORazepam 0.5 MG TAB PO SCH (20:17)
[2023-08-28] MEDS: PANTOprazole 40 MG TAB PO SCH (05:00)
[2023-08-28 07:10] LABS: Hematocrit (blood only) 37.4 % (37.0-47.0); Hemoglobin 12.1 g/dl (12.0-16.0); Mean Corpuscular Hemoglobin 29.8 pg (25.0-34.0); Mean Corpuscular Hgb Conc 32.4 g/dL (32.0-36.0); Mean Corpuscular Volume 92.1 fL (80.0-100.0); Mean Platelet Volume 10.4 fL (9.4-12.4); Platelet Count 355 K/uL (130-400); RDW Coefficient of Variation 15.1 % (11.5-14.5); RDW Standard Deviation 51.2 fL (36.4-46.3); Red Blood Count 4.06 M/uL (4.20-5.40); White Blood Count 6.29 K/ul (4.8-10.8)
[2023-08-28 07:27] LABS: BUN Creatinine Ratio 45.5 (10-20); Calcium 10.6 mg/dl (8.6-10.3); Creatinine Clr Calc Pharmacy 44.9 ml/min; Est GFR (African American) 59.2 ml/min; Est GFR (Non-African American) 51.1 ml/min; Potassium 4.7 mmol/L (3.5-5.1)
[2023-08-28] MEDS: APIXABAN 2.5 MG TAB PO SCH ×2 (08:12→20:11)
[2023-08-28] MEDS: guaiFENesin 600 MG TABCR PO SCH ×2 (08:12→20:11)
[2023-08-28] MEDS: ESCITALOPRAM OXALATE 10 MG TAB PO SCH (08:12)
[2023-08-28] MEDS: CEROVITE ADV FORMULA TAB PO SCH ×2 (08:12→17:10)
[2023-08-28] MEDS: FERROUS SULFATE 325 MG TAB PO SCH (08:12)
[2023-08-28] MEDS: GABAPENTIN 100 MG CAP PO SCH ×2 (08:13→17:11)
[2023-08-28] MEDS: RALOXIFENE HCL 60 MG TAB PO SCH (08:13)
[2023-08-28] MEDS: ASPIRIN 81 MG ECTAB PO SCH (08:13)
[2023-08-28] MEDS: FAMOTIDINE 20 MG TAB PO SCH ×2 (08:13→20:11)
[2023-08-28] MEDS: ADVANCED PROBIOTIC 1250 MG CAPSULE PO SCH (08:14)
[2023-08-28] MEDS: DOCUSATE SODIUM 100 MG CAP PO SCH ×3 (08:14→17:09)
[2023-08-28] MEDS: POTASSIUM CHLORIDE CRTAB 20 MEQ TABCR PO SCH ×4 (08:14→20:11)
[2023-08-28] MEDS: SPIRONOLACTONE 25 MG TAB PO SCH ×2 (08:16→17:10)
[2023-08-28] MEDS: LOPERAMIDE HCL 2 MG CAP PO PRN ×2 (08:19→20:11)
[2023-08-28] MEDS: CEFEPIME 2,000 MG in SYRINGE 0 ML IV SCH ×2 (12:05→22:19)
--- NOTE | 2023-08-28 13:30 | Hospitalist Progress Note ---
Date of Service August 28, 2023 Assessment & Plan (1) Open wound of right lower leg: (2) Cellulitis: (3) HTN (hypertension): (4) Dyslipidemia: (5) RADHA (obstructive sleep apnea): (6) Morbid obesity with BMI of 40.0-44.9, adult: (7) Mitral valve prolapse: (8) Depression: (9) Cough: Plan Ms. Pool is an 83-year-old female that presented to the ER today with complaints of worsening right lower leg wound. Patient was admitted July 13 until July 17 status post mechanical fall for which she sustained a fracture and underwent ORIF under the care of Dr. Garcia on 07/13 . On 08/03 she was seen as an outpatient by orthopedics for suture removal and was having a hard time with her boot and was not mobilizing due to the restriction of the boot however has noticed some erythema and swelling with dehi scence around the surgical incision site. Incidentally, pt reports a intermittently productive cough that has been occurring for the past few weeks. Additional past medical history includes alopecia areata, amaurosis fugax, RLS, right rotator cuff tendinopathy, prediabetes, CKDIII, hypertension, chronic right CHF, HLD, and osteoporosis. Postoperative infection to the right lower extremity ORIF hardware (deep) Postoperative wound infection RLE (superficial) Open wound of right lower leg: Cellulitis: Acute s/p ORIF right fibular fracture with syndesmotic repair on 07/13 08/03 seen by Ortho as outpatient suture removal has been using a boot Positive erythema/swelling with dehiscence ESR 66, serum CK ordered no leukocytosis, Lactate 2.1; will trend Ankle x-ray results: s/p ORIF right fibular fracture with syndesmotic repair. Hardware intact. No periprosthetic lucency. Lateral ankle soft tissue swelling w ith possible wound. Started on daptomycin plus Zosyn in ED; continue for now and adjust based on culture results Wound culture ordered MRI without contrast right ankle: 1. The examination is severely degraded by susceptibility artifact from a large buttress plate along the lateral cortex of the distal fibula. This entirely obscures the distal fibula and the majority of the overlying soft tissues. 2. There is a wound and soft tissue edema along the lateral aspect of the ankle. No organized fluid collection is seen to suggest abscess on this examination. 3. Plantar fasciitis. 4. Degenerative change at the tibiotalar articulation. 5. Tenosynovitis of the flexor hallucis longus tendon. Orthopedic consultation ID recommended debridement Would culture: pseudomonas;drainage culture: proteus ID updated recommendations: Ciprofloxacin 5 mg twice daily or cefepime 2 g every 8 x 6 weeks ID recommending the latter would be more aggressive management, and would promo te better wound healing Start cefepime 2 g IV every 8 hours x 6 weeks, currently on q12hr per renal function CBC, CMP while on IV cefepime Probiotics x 2 months PICC line placed Weight bearing: TTWB Wound care: irrigate wound with saline using 35cc syringe and 18g blunt needle. Pat dry. Cover/fill wound with aquacel Ag and secure with optifoam. Change optifoam when > 50% wet with drainage Wound care placed wound vac 08/25/22 Jonny stable with the wound VAC in place, leg swelling has been improving with elevation, denies any pain Wound VAC is in place and the legs are showing improvement with swelling and redness especially on the right side Diarrhea Likely secondary to antibiotic C. difficile has been negative Has been getting Imodium as needed Still having diarrhea but seems to be under control with Imodium Cough: CXR negative for acute cardiopulmonary disease Sputum culture ordered Mucinex p.o. every 12 ordered Cough improving Chronic HFrEF: MVP: Chronic Takes spironolactone and Bumex Most recent ECHO 02/2022: Normal LV chamber size with mild concentric LVH. EF 55- 60%, no LV wall motion abnormalities, mild AV sclerosis. Euvolemic Noted to have JULIO, lyte abnormalities 08/26 - holding Bumex for one day and resuming in AM, continue holding metolazone for now Creatinine went up a little day before yesterday Held Bumex and metolazone for 1 day Creatinine has been normalized and restart Bumex and hold metolazone for now HLD: Chronic Continue fenofibrate Depression: Chronic Takes gabapentin and Lexapro; continue Prediabetes: a1c 5.6 on 08/16/23 Increased risk for delayed wound healing GERD: Chronic Takes omeprazole, add H2 gary with improvement to dyspepsia, continue Disposition: PCP: Karen Galo CODE STATUS: DNR/DNI VTE prophylaxis: On Eliquis postop Dispo: Pt will require 6 weeks of IV cefepime, pt resides at [facility], working on d/c planning to complete IV antibiotics --> [facility] can accept 08/29. Likely discharge tomorrow Admission and Anticipated Discharge Date Admission Date: August 16, 2023 Subjective 08/27/2023 The patient was seen and examined in medical floor She has been stable and the diarrhea seems to be controlled with Imodium Denies any fever and or chills and no pain in the legs 08/28/2023 The patient was seen and examined in medical floor She remains stable and the diarrhea seems to be under control but is still requiring Imodium Denies any other symptoms Review of Systems Review of Systems: All systems reviewed and are unremarkable except as noted below Physical Exam Physical Exam: Lying in bed comfortably Constitutional: average body habitus; not ill appearing Eyes: PERRL, conjunctivae normal, anicteric sclerae ENMT: external ear and nose normal, oropharynx normal Neck: trachea midline, no thyromegaly Respiratory: no respiratory distress Auscultation: lungs clear to auscultation bilaterally and + crackles Cardiovascular: Rate/Rhythm: regular rate and regular rhythm; not tachycardic Heart Sounds: normal S1 and normal S2; no murmur Extremities: + edema Gastrointestinal (Abdomen): Inspection/Auscultation: normal bowel sounds; abdomen not distended Percussion/Palpation: + abdomen tender (Mildly tender) and abdomen soft Neurologic: normal touch/pain/proprioception and moves all extremities; no focal motor deficits Lymphatic: no cervical or axillary lymphadenopathy Results & Data Results & Data Vital Signs (Past 12 Hours) Vital Signs Temp Pulse Resp BP Pulse Ox O2 Del Method 08/28/23 07:13 36.8 C 66 16 136/74 94 Room Air Laboratory Results Short CBC 08/28/23 Range/Units 05:49 WBC 6.29 (4.8-10.8) K/ul Hgb 12.1 (12.0-16.0) g/dl Hct 37.4 (37.0-47.0) % Plt Count 355 (130-400) K/uL BMP 08/28/23 05:49 Sodium 132 L Potassium 4.7 D Chloride 103 Carbon Dioxide 22 BUN 46 H Creatinine 1.01 Glucose 125 H Calcium 10.6 H Medications Administered Current Inpatient Medications Acetaminophen (Acetaminophen 325 Mg Tab) 650 mg PO Q4H PRN PRN Reason: pain/fever Stop: 09/15/23 10:15 Last Admin: 08/26/23 20:02 Dose: 650 mg Al Hydrox/Mg Hydrox/Simethicone (Aluminum/Magnesium Susp 30 Ml Udc) 30 ml PO Q6H PRN PRN Reason: Dyspepsia Stop: 09/15/23 10:15 Apixaban (Apixaban 2.5 Mg Tab) 2.5 mg PO BID [facility] Stop: 09/15/23 20:59 Last Admin: 08/28/23 08:12 Dose: 2.5 mg Aspirin (Aspirin 81 Mg Ectab) 81 mg PO QAM [facility] Stop: 09/16/23 08:59 Last Admin: 08/28/23 08:13 Dose: 81 mg Bumetanide (Bumetanide 1 Mg Tab) 2 mg PO TIDM [facility] Stop: 09/15/23 11:59 Last Admin: 08/26/23 09:09 Dose: 2 mg Docusate Sodium (Docusate Sodium 100 Mg Cap) 100 mg PO TIWW [facility] Stop: 09/15/23 11:59 Last Admin: 08/28/23 12:06 Dose: Not Given Escitalopram Oxalate (Escitalopram Oxalate 10 Mg Tab) 10 mg PO QAM [facility] Stop: 09/16/23 08:59 Last Admin: 08/28/23 08:12 Dose: 10 mg Famotidine (Famotidine 20 Mg Tab) 20 mg PO BID [facility] Stop: 09/24/23 20:59 Last Admin: 08/28/23 08:13 Dose: 20 mg Fenofibrate (Fenofibrate Nanocrystallized 145 Mg Tablet) 145 mg PO QDD [facility] Stop: 09/17/23 16:29 Last Admin: 08/27/23 17:08 Dose: 145 mg Ferrous Sulfate (Ferrous Sulfate 325 Mg Tab) 325 mg PO QAM [facility] Stop: 09/16/23 08:59 Last Admin: 08/28/23 08:12 Dose: 325 mg Gabapentin (Gabapentin 100 Mg Cap) 100 mg PO BIDM [facility] Stop: 09/15/23 16:59 Last Admin: 08/28/23 08:13 Dose: 100 mg Guaifenesin (Guaifenesin 600 Mg Tabcr) 1,200 mg PO Q12 [facility] Stop: 09/15/23 10:59 Last Admin: 08/28/23 08:12 Dose: 1,200 mg Heparin Sodium (Beef Lung) (Heparin 10 Unit/Ml 5 Ml Flush) 5 ml FLUSH PRN PRN PRN Reason: Flush Stop: 09/23/23 10:22 Last Admin: 08/28/23 12:05 Dose: 5 ml Cefepime HCl 2,000 mg/ Syringe 20 mls @ 5 mls/min IV Q12H [facility]; Protocol Stop: 08/29/23 22:59 Last Admin: 08/28/23 12:05 Dose: 5 mls/min Lactobacillus Acidophilus (Advanced Probiotic 1250 Mg Capsule) 2 cap PO DAILY [facility] Stop: 09/16/23 10:59 Last Admin: 08/28/23 08:14 Dose: 2 cap Loperamide HCl (Loperamide Hcl 2 Mg Cap) 2 mg PO Q3H PRN PRN Reason: Diarrhea Stop: 09/25/23 15:21 Last Admin: 08/28/23 08:19 Dose: 2 mg Lorazepam (Lorazepam 0.5 Mg Tab) 0.5 mg PO HS [facility] Stop: 09/15/23 20:59 Last Admin: 08/27/23 20:17 Dose: 0.5 mg Magnesium Hydroxide (Magnesium Hydroxide Susp 30 Ml Udc) 30 ml PO Q6H PRN PRN Reason: Constipation Stop: 09/15/23 10:15 Melatonin (Melatonin 3 Mg Tab) 3 mg PO HS PRN PRN Reason: Sleep Stop: 09/22/23 23:38 Last Admin: 08/27/23 20:17 Dose: 3 mg Metolazone (Metolazone 2.5 Mg Tablet) 2.5 mg PO [id number] [facility] Stop: 09/16/23 08:59 Last Admin: 08/26/23 09:15 Dose: 2.5 mg Multivitamins/Minerals (Cerovite Adv Formula Tab) 1 tab PO BIDM [facility] Stop: 09/15/23 16:59 Last Admin: 08/28/23 08:12 Dose: 1 tab Ondansetron HCl (Ondansetron Inj 2 Mg/Ml 2 Ml Vial) 4 mg IV Q6H PRN PRN Reason: Nausea Stop: 09/15/23 10:15 Last Admin: 08/24/23 21:27 Dose: 4 mg Pantoprazole Sodium (Pantoprazole 40 Mg Tab) 40 mg PO DAILYBB [facility] Stop: 09/16/23 06:29 Last Admin: 08/28/23 05:00 Dose: 40 mg Polyethylene Glycol (Polyethylene (Miralax) 17 Gm Pack) 17 gm PO DAILY PRN PRN Reason: Constipation Stop: 09/15/23 10:15 Potassium Chloride (Potassium Chloride Crtab 20 Meq Tabcr) 40 meq PO ACHS [facility] Stop: 09/15/23 12:29 Last Admin: 08/28/23 12:05 Dose: 40 meq Raloxifene HCl (Raloxifene Hcl 60 Mg Tab) 60 mg PO QAM [facility] Stop: 09/16/23 08:59 Last Admin: 08/28/23 08:13 Dose: 60 mg Spironolactone (Spironolactone 25 Mg Tab) 100 mg PO QAM [facility] Stop: 09/15/23 12:29 Last Admin: 08/28/23 08:16 Dose: 100 mg Spironolactone (Spironolactone 25 Mg Tab) 75 mg PO QDD [facility] Stop: 09/15/23 16:29 Last Admin: 08/27/23 17:07 Dose: 75 mg
[2023-08-28] MEDS: FENOFIBRATE NANOCRYSTALLIZED 145 MG TABLET PO SCH (17:10)
[2023-08-28] MEDS: LORazepam 0.5 MG TAB PO SCH (20:11)
[2023-08-28] MEDS: MELATONIN 3 MG TAB PO PRN (20:11)
[2023-08-29] MEDS: PANTOprazole 40 MG TAB PO SCH (04:55)
[2023-08-29] MEDS: GABAPENTIN 100 MG CAP PO SCH (07:49)
[2023-08-29] MEDS: CEROVITE ADV FORMULA TAB PO SCH (07:49)
[2023-08-29] MEDS: POTASSIUM CHLORIDE CRTAB 20 MEQ TABCR PO SCH ×2 (07:49→11:20)
[2023-08-29] MEDS: RALOXIFENE HCL 60 MG TAB PO SCH (07:50)
[2023-08-29] MEDS: FAMOTIDINE 20 MG TAB PO SCH (07:50)
[2023-08-29] MEDS: ASPIRIN 81 MG ECTAB PO SCH (07:50)
[2023-08-29] MEDS: APIXABAN 2.5 MG TAB PO SCH (07:50)
[2023-08-29] MEDS: guaiFENesin 600 MG TABCR PO SCH (07:50)
[2023-08-29] MEDS: SPIRONOLACTONE 25 MG TAB PO SCH (07:51)
[2023-08-29] MEDS: FERROUS SULFATE 325 MG TAB PO SCH (07:51)
[2023-08-29] MEDS: ESCITALOPRAM OXALATE 10 MG TAB PO SCH (07:51)
[2023-08-29] MEDS: ADVANCED PROBIOTIC 1250 MG CAPSULE PO SCH (07:51)
[2023-08-29] MEDS: DOCUSATE SODIUM 100 MG CAP PO SCH ×2 (07:55→11:20)
[2023-08-29] MEDS: LOPERAMIDE HCL 2 MG CAP PO PRN ×2 (07:58→10:40)
--- NOTE | 2023-08-29 10:21 | Hospitalist Progress Note ---
Date of Service August 29, 2023 Assessment & Plan (1) Open wound of right lower leg: (2) Cellulitis: (3) HTN (hypertension): (4) Dyslipidemia: (5) RADHA (obstructive sleep apnea): (6) Morbid obesity with BMI of 40.0-44.9, adult: (7) Mitral valve prolapse: (8) Depression: (9) Cough: Plan Ms. Pool is an 83-year-old female that presented to the ER today with complaints of worsening right lower leg wound. Patient was admitted July 13 until July 17 status post mechanical fall for which she sustained a fracture and underwent ORIF under the care of Dr. Garcia on 07/13 . On 08/03 she was seen as an outpatient by orthopedics for suture removal and was having a hard time with her boot and was not mobilizing due to the restriction of the boot however has noticed some erythema and swelling with dehi scence around the surgical incision site. Incidentally, pt reports a intermittently productive cough that has been occurring for the past few weeks. Additional past medical history includes alopecia areata, amaurosis fugax, RLS, right rotator cuff tendinopathy, prediabetes, CKDIII, hypertension, chronic right CHF, HLD, and osteoporosis. Postoperative infection to the right lower extremity ORIF hardware (deep) Postoperative wound infection RLE (superficial) Open wound of right lower leg: Cellulitis: Acute s/p ORIF right fibular fracture with syndesmotic repair on 07/13 08/03 seen by Ortho as outpatient suture removal has been using a boot Positive erythema/swelling with dehiscence ESR 66, serum CK ordered no leukocytosis, Lactate 2.1; will trend Ankle x-ray results: s/p ORIF right fibular fracture with syndesmotic repair. Hardware intact. No periprosthetic lucency. Lateral ankle soft tissue swelling w ith possible wound. Started on daptomycin plus Zosyn in ED; continue for now and adjust based on culture results Wound culture ordered MRI without contrast right ankle: 1. The examination is severely degraded by susceptibility artifact from a large buttress plate along the lateral cortex of the distal fibula. This entirely obscures the distal fibula and the majority of the overlying soft tissues. 2. There is a wound and soft tissue edema along the lateral aspect of the ankle. No organized fluid collection is seen to suggest abscess on this examination. 3. Plantar fasciitis. 4. Degenerative change at the tibiotalar articulation. 5. Tenosynovitis of the flexor hallucis longus tendon. Orthopedic consultation ID recommended debridement Would culture: pseudomonas;drainage culture: proteus ID updated recommendations: Ciprofloxacin 5 mg twice daily or cefepime 2 g every 8 x 6 weeks ID recommending the latter would be more aggressive management, and would promo te better wound healing Start cefepime 2 g IV every 8 hours x 6 weeks, currently on q12hr per renal function CBC, CMP while on IV cefepime Probiotics x 2 months PICC line placed Weight bearing: TTWB Wound care: irrigate wound with saline using 35cc syringe and 18g blunt needle. Pat dry. Cover/fill wound with aquacel Ag and secure with optifoam. Change optifoam when > 50% wet with drainage Wound care placed wound vac 08/25/22 Jonny stable with the wound VAC in place, leg swelling has been improving with elevation, denies any pain Wound VAC is in place and the legs are showing improvement with swelling and redness especially on the right side The wound has improved a lot, no drainage from the wound, no surrounding inflammation and the swelling is improved We will continue with the wound VAC and IV antibiotic as planned She will be discharged to SNF this afternoon Diarrhea Likely secondary to antibiotic C. difficile has been negative Has been getting Imodium as needed Still having diarrhea but seems to be under control with Imodium Still need to have Imodium as needed to control diarrhea Cough: CXR negative for acute cardiopulmonary disease Sputum culture ordered Mucinex p.o. every 12 ordered Denies any more cough Chronic HFrEF: MVP: Chronic Takes spironolactone and Bumex Most recent ECHO 02/2022: Normal LV chamber size with mild concentric LVH. EF 55- 60%, no LV wall motion abnormalities, mild AV sclerosis. Euvolemic Noted to have JULIO, lyte abnormalities 08/26 - holding Bumex for one day and resuming in AM, continue holding metolazone for now Creatinine went up a little day before yesterday Held Bumex and metolazone for 1 day Creatinine has been normalized and restart Bumex and hold metolazone for now HLD: Chronic Continue fenofibrate Depression: Chronic Takes gabapentin and Lexapro; continue Prediabetes: a1c 5.6 on 08/16/23 Increased risk for delayed wound healing GERD: Chronic Takes omeprazole, add H2 gary with improvement to dyspepsia, continue Disposition: PCP: Karen Galo CODE STATUS: DNR/DNI VTE prophylaxis: On Eliqu postop Dispo: Pt will require 6 weeks of IV cefepime, pt resides at [facility], CM working on d/c planning to complete IV antibiotics --> [facility] can accept Tuesday, 08/29. Will be discharged this afternoon Admission and Anticipated Discharge Date Admission Date: August 16, 2023 Subjective 08/27/2023 The patient was seen and examined in medical floor She has been stable and the diarrhea seems to be controlled with Imodium Denies any fever and or chills and no pain in the legs 08/28/2023 The patient was seen and examined in medical floor She remains stable and the diarrhea seems to be under control but is still requiring Imodium Denies any other symptoms 08/29/2023 The patient was seen and examined in medical floor Still has some diarrhea but denies any other symptoms associated with No fever and or chills and the wound of the right ankle looks better Review of Systems Review of Systems: All systems reviewed and are unremarkable except as noted below Physical Exam Physical Exam: Lying in bed comfortably Constitutional: average body habitus; not ill appearing Eyes: PERRL, conjunctivae normal, anicteric sclerae ENMT: external ear and nose normal, oropharynx normal Neck: trachea midline, no thyromegaly Respiratory: no respiratory distress Auscultation: lungs clear to auscultation bilaterally and + crackles Cardiovascular: Rate/Rhythm: regular rate and regular rhythm; not tachycardic Heart Sounds: normal S1 and normal S2; no murmur Extremities: + edema Gastrointestinal (Abdomen): Inspection/Auscultation: normal bowel sounds; abdomen not distended Percussion/Palpation: + abdomen tender (Mildly tender) and abdomen soft Musculoskeletal: No acute arthritis involving any of the joint. Right lateral ankle and lower leg wound looks a lot better without any surrounding inflammation in the wound bases is clear Neurologic: normal touch/pain/proprioception and moves all extremities; no focal motor deficits Lymphatic: no cervical or axillary lymphadenopathy Results & Data Results & Data Vital Signs (Past 12 Hours) Vital Signs Temp Pulse Resp BP Pulse Ox O2 Del Method 01/08/24 07:59 36.3 C L 65 17 130/70 96 Room Air Medications Administered Current Inpatient Medications Acetaminophen (Acetaminophen 325 Mg Tab) 650 mg PO Q4H PRN PRN Reason: pain/fever Stop: 09/15/23 10:15 Last Admin: 08/26/23 20:02 Dose: 650 mg Al Hydrox/Mg Hydrox/Simethicone (Aluminum/Magnesium Susp 30 Ml Udc) 30 ml PO Q6H PRN PRN Reason: Dyspepsia Stop: 09/15/23 10:15 Apixaban (Apixaban 2.5 Mg Tab) 2.5 mg PO BID [facility] Stop: 09/15/23 20:59 Last Admin: 08/29/23 07:50 Dose: 2.5 mg Aspirin (Aspirin 81 Mg Ectab) 81 mg PO QAM [facility] Stop: 09/16/23 08:59 Last Admin: 08/29/23 07:50 Dose: 81 mg Bumetanide (Bumetanide 1 Mg Tab) 2 mg PO TIDM [facility] Stop: 09/15/23 11:59 Last Admin: 08/26/23 09:09 Dose: 2 mg Docusate Sodium (Docusate Sodium 100 Mg Cap) 100 mg PO TIDM [facility] Stop: 09/15/23 11:59 Last Admin: 08/29/23 07:55 Dose: Not Given Escitalopram Oxalate (Escitalopram Oxalate 10 Mg Tab) 10 mg PO QAM [facility] Stop: 09/16/23 08:59 Last Admin: 08/29/23 07:51 Dose: 10 mg Famotidine (Famotidine 20 Mg Tab) 20 mg PO BID [facility] Stop: 09/24/23 20:59 Last Admin: 08/29/23 07:50 Dose: 20 mg Fenofibrate (Fenofibrate Nanocrystallized 145 Mg Tablet) 145 mg PO QDD [facility] Stop: 09/17/23 16:29 Last Admin: 08/28/23 17:10 Dose: 145 mg Ferrous Sulfate (Ferrous Sulfate 325 Mg Tab) 325 mg PO QAM [facility] Stop: 09/16/23 08:59 Last Admin: 08/29/23 07:51 Dose: 325 mg Gabapentin (Gabapentin 100 Mg Cap) 100 mg PO BIDM [facility] Stop: 09/15/23 16:59 Last Admin: 08/29/23 07:49 Dose: 100 mg Guaifenesin (Guaifenesin 600 Mg Tabcr) 1,200 mg PO Q12 [facility] Stop: 09/15/23 10:59 Last Admin: 08/29/23 07:50 Dose: 1,200 mg Heparin Sodium (Beef Lung) (Heparin 10 Unit/Ml 5 Ml Flush) 5 ml FLUSH PRN PRN PRN Reason: Flush Stop: 09/23/23 10:22 Last Admin: 08/28/23 12:05 Dose: 5 ml Cefepime HCl 2,000 mg/ Syringe 20 mls @ 5 mls/min IV Q12H [facility]; Protocol Stop: 08/29/23 22:59 Last Admin: 08/28/23 22:19 Dose: 5 mls/min Lactobacillus Acidophilus (Advanced Probiotic 1250 Mg Capsule) 2 cap PO DAILY [facility] Stop: 09/16/23 10:59 Last Admin: 08/29/23 07:51 Dose: 2 cap Loperamide HCl (Loperamide Hcl 2 Mg Cap) 2 mg PO Q3H PRN PRN Reason: Diarrhea Stop: 09/25/23 15:21 Last Admin: 08/29/23 07:58 Dose: 2 mg Lorazepam (Lorazepam 0.5 Mg Tab) 0.5 mg PO HS [facility] Stop: 09/15/23 20:59 Last Admin: 08/28/23 20:11 Dose: 0.5 mg Magnesium Hydroxide (Magnesium Hydroxide Susp 30 Ml Udc) 30 ml PO Q6H PRN PRN Reason: Constipation Stop: 09/15/23 10:15 Melatonin (Melatonin 3 Mg Tab) 3 mg PO HS PRN PRN Reason: Sleep Stop: 09/22/23 23:38 Last Admin: 08/28/23 20:11 Dose: 3 mg Metolazone (Metolazone 2.5 Mg Tablet) 2.5 mg PO MoWeFr@0900 [facility] Stop: 09/16/23 08:59 Last Admin: 08/26/23 09:15 Dose: 2.5 mg Multivitamins/Minerals (Cerovite Adv Formula Tab) 1 tab PO BIDM [facility] Stop: 09/15/23 16:59 Last Admin: 08/29/23 07:49 Dose: 1 tab Ondansetron HCl (Ondansetron Inj 2 Mg/Ml 2 Ml Vial) 4 mg IV Q6H PRN PRN Reason: Nausea Stop: 09/15/23 10:15 Last Admin: 08/24/23 21:27 Dose: 4 mg Pantoprazole Sodium (Pantoprazole 40 Mg Tab) 40 mg PO DAILYBB [facility] Stop: 09/16/23 06:29 Last Admin: 08/29/23 04:55 Dose: 40 mg Polyethylene Glycol (Polyethylene (Miralax) 17 Gm Pack) 17 gm PO DAILY PRN PRN Reason: Constipation Stop: 09/15/23 10:15 Potassium Chloride (Potassium Chloride Crtab 20 Meq Tabcr) 40 meq PO ACHS [facility] Stop: 09/15/23 12:29 Last Admin: 08/29/23 07:49 Dose: 40 meq Raloxifene HCl (Raloxifene Hcl 60 Mg Tab) 60 mg PO QAM [facility] Stop: 09/16/23 08:59 Last Admin: 08/29/23 07:50 Dose: 60 mg Spironolactone (Spironolactone 25 Mg Tab) 100 mg PO QAM [facility] Stop: 09/15/23 12:29 Last Admin: 08/29/23 07:51 Dose: 100 mg Spironolactone (Spironolactone 25 Mg Tab) 75 mg PO QDD [facility] Stop: 09/15/23 16:29 Last Admin: 08/28/23 17:10 Dose: 75 mg
[2023-08-29] MEDS: CEFEPIME 2,000 MG in SYRINGE 0 ML IV SCH (10:40)
[2023-08-29] MEDS ORDERED: LORazepam 0.5 MG TAB PO STA (12:41)
--- NOTE | 2023-08-30 10:12 | Discharge Summary ---
Date of Service August 30, 2023 Admission HPI Per Admitting Provider Ms. Pool is an 83-year-old female that presented to the ER today with complaints of worsening right lower leg wound. Patient was admitted July 13 until July 17 status post mechanical fall for which she sustained a fracture and underwent ORIF under the care of Dr. Garcia. On 08/03 she was seen as an outpatient by orthopedics for suture removal and was having a hard time with her boot and was not mobilizing due to the restriction of the boot however has noticed some erythema and swelling with dehiscence around the surgical incision site. Incidentally, pt reports a intermittently productive cough that has been occurring for the past few weeks. Additional past medical history includes alopecia areata, amaurosis fugax, RLS, right rotator cuff tendinopathy, prediabetes, CKDIII, hypertension, chronic right CHF, HLD, and osteoporosis. In the ED no leukocytosis WBC 5.11, ESR slightly elevated 66, lactate minimally elevated at 2.1, no abnormalities otherwise with electrolytes. Patient is normotensive and no signs of sepsis. Most recent ECHO 02/2022: Normal LV chamber size with mild concentric LVH. EF 55-60%, no LV wall motion abnormalities, mild AV sclerosis. ED spoke with general surgery Dr. Garcia who suggested patient be admitted for IV antibiotics, right ankle MRI, wound and sputum culture, chest x-ray, supportive treatment with Mucinex for cough, and Ortho consultation. Will keep patient n.p.o. after midnight tonight pending Ortho consult. She denies OATES, dizziness, SOB, chest pain, palpitations, neuropathy, fevers, chills. Reports an ongoing cough as outlined above. Denies tobacco use, alcohol use, recreational drug use. Confirmed patient is DNR/DNI. On examination, patient does not appear toxic however does have an open wound on the distal la teral right lower leg. Surrounding erythema and tenderness. Granulation tissue noted. Positive sensation and pedal pulse on right foot. As outlined above does not appear toxic without fever and chills. On p.o. Eliquis postop. Patient will be admitted for further evaluation management. Please see A/P for further details. Admission Exam Per Admitting Provider Physical Exam: Neuro: AAOx4, PERRLA, no aphagia, memory changes, CNII-XII grossly intact HEENT: head normocephalic, moist mucus membranes CV: S1/S2, (-) M/G/R, (-) edema, cap refill < 3 seconds (+) R pedal pulse Resp: Lungs CTA in all almanza. On RA GI: Abdomen S/NT/ND, Ax4 bowel sounds, (-) CVA tenderness Musculoskeletal: 5/5 B/L UE strength, 5/5 B/L LE strength. Has been more sedentary post op. Skin: (-) rashes , (+) swelling and erythema right ankle at incision site. Psych: Flat, yet euthymic affect Principal Diagnosis Open wound right lower leg, status post ORIF hardware, chronic heart failure with reduced EF, depression, hyperlipidemia Discharge Exam Lying in bed comfortably Constitutional average body habitus; not ill appearing Eyes PERRL, conjunctivae normal, anicteric sclerae ENMT external ear and nose normal, oropharynx normal Neck trachea midline, no thyromegaly Respiratory no respiratory distress Auscultation: lungs clear to auscultation bilaterally and + crackles Cardiovascular Rate/Rhythm: regular rate and regular rhythm; not tachycardic Heart Sounds: normal S1 and normal S2; no murmur Extremities: + edema Gastrointestinal (Abdomen) Inspection/Auscultation: normal bowel sounds; abdomen not distended Percussion/Palpation: + abdomen tender (Mildly tender) and abdomen soft Neurologic normal touch/pain/proprioception and moves all extremities; no focal motor deficits Lymphatic no cervical or axillary lymphadenopathy Discharge Data Allergies Allergy/AdvReac Type Severity Reaction Status Date / Time demeclocycline Allergy Unknown ON Verified 07/12/23 19:36 [facility] sulfamethoxazole Allergy Unknown ON Verified 07/12/23 19:36 [facility] trimethoprim Allergy Unknown ON Verified 07/12/23 19:36 [facility] ropinirole AdvReac Intermediate fluid Verified 07/12/23 19:36 retention pregabalin [From Lyrica] AdvReac Mild Unknown Verified 07/12/23 19:36 Consultations 08/16/23 10:11 ED Decision to Admit Stat 08/16/23 14:00 Consult Orthopedic Surgery Routine 08/17/23 10:56 Consult Infectious Diseases Routine Ordered Studies 08/16/23 10:41 MRI Ankle [MR ankle RT wo con] Routine 12/27/23 15:54 CT foot RT w con Routine Hospital Course (1) Open wound of right lower leg: (2) Cellulitis: (3) HTN (hypertension): (4) Dyslipidemia: (5) RADHA (obstructive sleep apnea): (6) Morbid obesity with BMI of 40.0-44.9, adult: (7) Mitral valve prolapse: (8) Depression: (9) Cough: Plan Ms. Pool is an 83-year-old female that presented to the ER today with complaints of worsening right lower leg wound. Patient was admitted July 13 until July 17 status post mechanical fall for which she sustained a fracture and underwent ORIF under the care of Dr. Garcia on 07/13 . On 08/03 she was seen as an outpatient by orthopedics for suture removal and was having a hard time with her boot and was not mobilizing due to the restriction of the boot however has noticed some erythema and swelling with dehiscence around the surgical incision site. Incidentally, pt reports a intermittently productive cough that has been occurring for the past few weeks. Additional past medical history includes alopecia areata, amaurosis fugax, RLS, right rotator cuff tendinopathy, prediabetes, CKDIII, hypertension, chronic right CHF, HLD, and osteoporosis. Postoperative infection to the right lower extremity ORIF hardware (deep) Postoperative wound infection RLE (superficial) Open wound of right lower leg: Cellulitis: Acute s/p ORIF right fibular fracture with syndesmotic repair on 07/13 08/03 seen by Ortho as outpatient suture removal has been using a boot Positive erythema/swelling with dehiscence ESR 66, serum CK ordered no leukocytosis, Lactate 2.1; will trend Ankle x-ray results: s/p ORIF right fibular fracture with syndesmotic repair. Hardware intact. No periprosthetic lucency. Lateral ankle soft tissue swelling with possible wound. Started on daptomycin plus Zosyn in ED; continue for now and adjust based on culture results Wound culture ordered MRI without contrast right ankle: 1. The examination is severely degraded by susceptibility artifact from a large buttress plate along the lateral cortex of the distal fibula. This entirely obscures the distal fibula and the majority of the overlying soft tissues. 2. There is a wound and soft tissue edema along the lateral aspect of the ankle. No organized fluid collection is seen to suggest abscess on this examination. 3. Plantar fasciitis. 4. Degenerative change at the tibiotalar articulation. 5. Tenosynovitis of the flexor hallucis longus tendon. Orthopedic consultation ID recommended debridement Would culture: pseudomonas;drainage culture: proteus ID updated recommendations: Ciprofloxacin 5 mg twice daily or cefepime 2 g every 8 x 6 weeks ID recommending the latter would be more aggressive management, and would promote better wound healing Start cefepime 2 g IV every 8 hours x 6 weeks, currently on q12hr per renal function CBC, CMP while on IV cefepime Probiotics x 2 months PICC line placed Weight bearing: TTWB Wound care: irrigate wound with saline using 35cc syringe and 18g blunt needle. Pat dry. Cover/fill wound with aquacel Ag and secure with optifoam. Change optifoam when > 50% wet with drainage Wound care placed wound vac 08/25/22 Jonny stable with the wound VAC in place, leg swelling has been improving with elevation, denies any pain Wound VAC is in place and the legs are showing improvement with swelling and redness especially on the right side The wound has improved a lot, no drainage from the wound, no surrounding inflammation and the swelling is improved We will continue with the wound VAC and IV antibiotic as planned She will be discharged to SNF this afternoon Diarrhea Likely secondary to antibiotic C. difficile has been negative Has been getting Imodium as needed Still having diarrhea but seems to be under control with Imodium Still need to have Imodium as needed to control diarrhea Cough: CXR negative for acute cardiopulmonary disease Sputum culture ordered Mucinex p.o. every 12 ordered Denies any more cough Chronic HFrEF: MVP: Chronic Takes spironolactone and Bumex Most recent ECHO 02/2022: Normal LV chamber size with mild concentric LVH. EF 55- 60%, no LV wall motion abnormalities, mild AV sclerosis. Euvolemic Noted to have JULIO, lyte abnormalities 08/26 - holding Bumex for one day and resuming in AM, continue holding metolazone for now Creatinine went up a little day before yesterday Held Bumex and metolazone for 1 day Creatinine has been normalized and restart Bumex and hold metolazone for now HLD: Chronic Continue fenofibrate Depression: Chronic Takes gabapentin and Lexapro; continue Prediabetes: a1c 5.6 on 08/16/23 Increased risk for delayed wound healing GERD: Chronic Takes omeprazole, add H2 gary with improvement to dyspepsia, continue Disposition: PCP: Karen Galo CODE STATUS: DNR/DNI VTE prophylaxis: On Eliquis postop Dispo: Pt will require 6 weeks of IV cefepime, [facility], [facility] working on d/c planning to complete IV antibiotics --> [facility] can accept Tuesday, 08/29. Will be discharged this afternoon Total Time Total Time Spent Total Time Spent (In Minutes): 40 minutes Discharge Plan Discharge Items Patient Disposition: [facility] Reason For Visit: CELLULITIS Discharge Diagnosis: Open wound right lower leg, status post ORIF hardware, chronic heart failure with reduced EF, depression, hyperlipidemia Condition on Discharge: Fair Activity: Resume your previous activity Non-emergency contact: Primary Care Provider Call non-emergency contact if: you have any medication questions and your symptoms worsen Follow-up/Referrals: Erick Mark [Primary Care Provider] - Diet: Heart Healthy Addtl Attending Provider Instructions: Please take precautions to avoid falls Finish the course of antibiotic as advised Wound care as per instructions from the wound care team Has been using wound VAC right now Keep appointments with the healthcare providers You will need to have CBC and BMP done every week as long as you are on IV antibiotic Need to have an ID appointment in about 4 weeks Pending Studies at Discharge: No Stand-Alone Forms: My [facility] Skilled Items Patient informed of condition?: Yes DNR: Yes Discharge Level of Care: Skilled Communicable Disease: No Discharge Prognosis: Stable Lines: PICC Urinary Catheter: No Medications and DC Order Prescriptions: New Advanced Probiotic 625 mg (10 billion cell) Capsule 2 cap PO DAILY Qty: 60 0RF loperamide 2 mg Capsule 2 mg PO Q3H PRN (Reason: loose stool) Qty: 30 0RF cefepime 2 gram recon soln 2 g IV Q12H 29 Days Continued aspirin 81 mg tablet,delayed release (DR/EC) 81 mg PO QAM raloxifene 60 mg tablet 60 mg PO QAM omega 2-hna-jpy-fish oil [Fish Oil] 1,000 mg (120 mg-180 mg) Capsule 1 cap PO TIDM metolazone 2.5 mg Tablet 2.5 mg PO [id number] Rx Instructions: TAKES MON, WED, & FRI IN mornings. Take 30 minutes before morning dose of bumex omeprazole 40 mg Capsule,Delayed Release(Dr/Ec) 40 mg PO DAILYBB docusate sodium 100 mg Capsule 100 mg PO TIDM fenofibrate 160 mg Tablet 160 mg PO QDD Rx Instructions: Takes at 1600 bumetanide 2 mg tablet 2 mg PO TIDM Rx Instructions: TAKES AT 0800, 1200, & 1600 dextromethorphan-guaifenesin [Tussin DM] 10-100 mg/5 mL Liquid 10 ml PO Q4H PRN (Reason: Cough) lorazepam 0.5 mg Tablet 0.5 mg PO HS Rx Instructions: PT MAY DECLINE THIS MED potassium chloride 40 mEq/15 mL liquid 40 meq PO ACHS PreserVision AREDS-2 250-90-40-1 mg Capsule 1 tab PO BIDM Reguloid (psyllium husk) 3 gram/5.4 gram Powder 1 tbsp PO DAILY PRN (Reason: Constipation) Rx Instructions: mix into at least 8 oz of water or juice before administering betamethasone dipropionate 0.05 % cream 1 applic TOPICAL BID Rx Instructions: APPLY TO SCALP gabapentin 100 mg capsule 100 mg PO BIDM atropine 1 % drops 1 drp OPR TID PRN (Reason: Pain) escitalopram oxalate 10 mg tablet 10 mg PO QAM ferrous sulfate 142 mg (45 mg iron) Tablet Extended Release 142 mg PO QAM guaifenesin [Mucus Relief ER] 600 mg Tablet Extended Release 12hr 600 mg PO BID PRN (Reason: Congestion) spironolactone 50 mg tablet See Rx Instructions .ROUTE .COMPLEX Rx Instructions: TAKES 100 MG QAM, THEN 75 MG QDD. Eliquis 2.5 mg Tablet 2.5 mg PO BID Qty: 60 0RF Caltrate 600-D Plus Minerals 600 mg calcium- 800 unit-50 mg Tablet 1 tab PO BID Qty: 60 0RF Discharge Orders: Discharge Order (Routine); Ordered 08/29/23 Ordered By: Gerri Freeman/Other Patient Handouts: Nutrition for Wound Healing Admission Data Admit Date/Time: 08/16/23 10:16 Attending Provider: Gerri Engle Admit Provider: Tracie Urbina Primary Care Provider: Erick Mark Other Providers: Tracie Urbina; Shiva Adkins; Vimal Angeles; Desi Pérez; Ozzie Knutson I.; aLrry Lopez II; Kim Alexander; Ramón Quiñones; Guillermo Sanders; Tony Baird; [facility]; Dennis Montero; Perla Knutson Other Interventions: Discharge Summary Assessment (RN) Last Done: 08/29/23 11:07
== END 2023-08-29 13:35 | DRG 560 ==
LOC: ED 07:15 → EDINP 10:16 → SUATTDRO 10:16 → 3W 12:24

== ENCOUNTER 2023-10-02 08:59 | Inpatient (IN) ==
[2023-10-02 09:35] LABS: iSTAT Creatinine 2.1 mg/dl (0.6-1.3); iSTAT Hemoglobin 12.9 g/dl (12.0-16.0); iSTAT Ionized Calcium 1.51 mmol/l (1.12-1.32); iSTAT Potassium 6.1 mmol/L (3.3-5.0)
[2023-10-02] MEDS: SODIUM CHLORIDE 0.9% 500 ML IV SCH ×2 (09:39→15:15)
[2023-10-02 09:49] LABS: Basophils # (auto) 0.01 K/uL (0.00-0.20); Basophils % (auto) 0.1 %; Hemoglobin 12.5 g/dl (12.0-16.0); Immature Granulocytes % (auto) 1.3 %; Lymphocytes # (auto) 0.66 K/uL (1.20-3.40); Lymphocytes % (auto) 8.8 %; Mean Corpuscular Hemoglobin 29.4 pg (25.0-34.0); Mean Corpuscular Hgb Conc 32.9 g/dL (32.0-36.0); Mean Corpuscular Volume 89.4 fL (80.0-100.0); Mean Platelet Volume 11.1 fL (9.4-12.4); Monocytes # (auto) 0.95 K/uL (0.11-0.59); Monocytes % (auto) 12.6 %; Neutrophils # (auto) 5.79 K/uL (1.40-6.50); Neutrophils % (auto) 77.2 %; Platelet Count 432 K/uL (130-400); RDW Coefficient of Variation 16.3 % (11.5-14.5); RDW Standard Deviation 53.5 fL (36.4-46.3); Red Blood Count 4.25 M/uL (4.20-5.40); White Blood Count 7.51 K/ul (4.8-10.8)
[2023-10-02 10:00] LABS: INR 1.3 (0.9-1.1); Prothrombin Time 13.6 Seconds (9.0-12.0)
[2023-10-02 10:13] LABS: Alanine Aminotransferase 13 U/L (7-52); Albumin Globulin Ratio 0.9 (0.9-2); Albumin Level 3.5 gm/dl (3.4-5.0); Alkaline Phosphatase 70 U/L (34-104); Anion Gap 10 (3-11); BUN Creatinine Ratio 25.7 (10-20); Bilirubin,Total 0.5 mg/dl (0.2-1.0); Blood Urea Nitrogen 52 mg/dl (6-23); Calcium 11.7 mg/dl (8.6-10.3); Carbon Dioxide 18 mmol/L (21-32); Chloride 114 mmol/L (98-107); Creatinine Clr Calc Pharmacy 24.1 ml/min; Est GFR (African American) 25.6 ml/min; Est GFR (Non-African American) 22.1 ml/min; Glucose 142 mg/dl (70-99(Fasting)); Magnesium 1.7 mg/dl (1.7-2.4); Sodium 142 mmol/L (136-145); Total Protein 7.5 gm/dl (6.0-8.3)
--- NOTE | 2023-10-02 10:18 | CT Scan Report ---
CT OF THE HEAD WITHOUT CONTRAST CLINICAL HISTORY: Altered mental status. COMPARISON STUDY: Head CT September 18, 2017. TECHNIQUE: Helical axial images of the head were obtained without IV contrast. Automated exposure con trol was utilized for the study. A dose lowering technique was utilized adhering to the principles o f ALARA. FINDINGS: No acute intracranial hemorrhage, midline shift or mass effect is present. The ventricular system is unremarkable. White matter hypodensities favor small vessel disease. The basal cisterns are patent. No extra-axial collections are present. There are no findings to suggest acute dural sinus t hrombosis or acute territorial infarct. No significant calvarial abnormalities are present. Visualize d portions of the sinuses and mastoid air cells are clear. IMPRESSION: No acute intracranial findings. ACT 112: Negative or not required by law. Electronically signed by: Lan Wilcox M.D. 10/02/2023 10:16 AM
[2023-10-02 10:24] LABS: Thyroid Stimulating Hormone 2.387 uIu/ml (0.300-4.500); Troponin I High Sensitivity 16.9 pg/ml (0-14)
--- NOTE | 2023-10-02 10:28 | CT Scan Report ---
CT OF THE ABDOMEN AND PELVIS WITHOUT CONTRAST CLINICAL HISTORY: lower abd pain, AMS, elevated creatinine COMPARISON STUDY: CT of the abdomen and pelvis December 29, 2021. TECHNIQUE: Axial images of the abdomen and pelvis were obtained without IV contrast. Images were revi ewed in the axial, sagittal, and coronal planes. Automated exposure control was utilized for the amada dy. A dose lowering technique was utilized adhering to the principles of ALARA. FINDINGS: No pneumatosis, free air or portal venous gas is present. There is moderate cardiomegaly. T here are no renal, ureteral or bladder calculi. There is mild dilatation of the bilateral collecting systems. Bladder is moderately distended. Evaluation of the remainder of the abdomen and pelvis is loo boptimal as unenhanced exam. Liver, spleen, adrenal glands and pancreas are unremarkable. There is no biliary or pancreatic ductal dilatation. No peripancreatic or pericholecystic stranding is present t here is no evidence for a bowel obstruction. Moderate amount of stool within the rectum. No acute fra ctures are identified. L3 and L4 kyphoplasty are noted. Vertebral body height loss at the L3 level wi th retropulsion has progressed since prior CT. There are no suspicious osseous lesions IMPRESSION: 1. No urinary calculi. Mild bilateral collecting system dilatation, likely related to bladder distent ion. 2. No bowel obstruction. No bowel wall thickening on unenhanced exam. Moderate amount of stool within the rectum. ACT 112: Negative or not required by law. Electronically signed by: Lan Wilcox M.D. 10/02/2023 10:26 AM
[2023-10-02] MEDS: SODIUM CHLORIDE 0.9% 1,000 ML IV SCH (10:40)
[2023-10-02 10:55] LABS: Appearance Urine Clear (Clear); Bacteria Urine Automated Negative (Negative); Bilirubin Urine Negative (Negative); Blood Urine Trace (Negative); Color Urine Yellow; Glucose Urine UA Negative (Negative); Ketones Urine Negative (Negative); Leukocyte Esterase Urine Negative (Negative); Nitrite Urine Negative (Negative); Protein Urine Trace (Negative); RBC Urine Automated 0-4 /hpf (0-4); Specific Gravity Urine 1.012 (1.000-1.030); Urobilinogen Urine Negative (Negative)
[2023-10-02 10:57] LABS: Potassium 4.5 mmol/L (3.5-5.1)
--- NOTE | 2023-10-02 11:01 | XRay Report ---
XR chest 1V portable CLINICAL HISTORY: weakness COMPARISON STUDY: Chest CT March 16, 2022. Chest radiograph August 16, 2023. FINDINGS: There is no pneumothorax or pleural effusion. There is cardiomegaly without overt pulmonary edema. Moderate right upper lobe airspace opacity is present. Linear right basilar opacity favors at electasis. IMPRESSION: Right upper lobe airspace opacities suggestive of pneumonia. Post treatment radiographs to ensure resolution are recommended. ACT 112: Negative or not required by law. Electronically signed by: Lan Wilcox M.D. 10/02/2023 10:59 AM
[2023-10-02 12:23] LABS: Adenovirus PCR Not Detected (NotDetected); Bordetella parapertussis PCR Not Detected (NotDetected); Bordetella pertussis PCR Not Detected (NotDetected); Chlamydia pneumoniae PCR Not Detected (NotDetected); Coronavirus 229E PCR Not Detected (NotDetected); Coronavirus CoV-2 (COVID19)PCR Not Detected (NotDetected); Coronavirus HKU1 PCR Not Detected (NotDetected); Coronavirus NL63 PCR Not Detected (NotDetected); Coronavirus OC43PCR Not Detected (NotDetected); Human Metapneumovirus PCR Not Detected (NotDetected); Influenza A PCR Not Detected (NotDetected); Influenza B PCR Not Detected (NotDetected); Mycoplasma pneumoniae PCR Not Detected (NotDetected); Parainfluenza Virus 1 PCR Not Detected (NotDetected); Parainfluenza Virus 2 PCR Not Detected (NotDetected); Parainfluenza Virus 3 PCR Not Detected (NotDetected); Parainfluenza Virus 4 PCR Not Detected (NotDetected); Respiratory Syncytial VirusPCR Not Detected (NotDetected); Rhinovirus/Enterovirus PCR Not Detected (NotDetected)
[2023-10-02] MEDS ORDERED: VANCOMYCIN CONSULT ACTIVE PRN ×2 (12:48→15:42)
--- NOTE | 2023-10-02 12:54 | Emergency Department Note ---
Impression & Plan AMS (altered mental status), Right upper lobe pneumonia, Hypercalcemia, Acute dehydration ED Provider Note NAME: ATIF PALMER AGE: 83 SEX: Female INFORMANT: Patient and EMS ED PROVIDER(S): Dheeraj Whiting MD CHIEF COMPLAINT: Change in mental status PLAN: Disposition: Admitted Outpatient prescription management: none Referral: None MEDICAL DECISION MAKING: Patient presented due to change in mental status. Workup was initiated. This included blood cultures, bio fire testing, chest x-ray and CT imaging of the head and abdomen/pelvis. Patient had unremarkable CT imaging. Chest x-ray was concerning for right upper lobe infiltrate. Patient's CBC and chemistry panels revealed a decrease CO2 and dehydration. She also had hypercalcemia and mild elevation of her creatinine over baseline. Troponin is borderline. Bio fire testing was negative. Patient was hydrated. Patient was receiving IV cefepime as an outpatient for her previous infection. Discussed with ED pharmacist. Added on vancomycin and Zithromax for broadened coverage for the right upper lobe infiltrate. [facility] Patient was evaluated in the ER admitted for further management. Care/management discussed with: Discussed with marketing services manager Level of care consideration(s): After review of the information above and other included data, I feel the patient requires escalation of care to admission Triage Nursing notes: reviewed and agree them. Vital Signs: reviewed and remarkable for no significant abnormalities Additional History obtained from: EMS Chronic Medical/Social Conditions affecting care: Osteomyelitis Prior/ Outside/ External records reviewed: none Differential Diagnosis: Infection, hypoglycemia, electrolyte abnormalities, overdose, toxicologic, cardiac sources, intracerebral event, neurologic, trauma, as well as other pathologies. Diagnostics, independently interpreted by me: ECG: Twelve-lead ECG reveals sinus tachycardia with PACs and nonspecific ST abnormality at 109 bpm. Cardiac Monitoring: Cardiac monitoring ordered by me: The patient was placed on continuous cardiac monitoring and observed. It revealed a normal sinus rhythm at 95 beats per minute without ectopy or evidence of dysrhythmia. Medical decision rules: none Imaging studies: Chest x-ray concerning for right upper lobe infiltrate. HPI: 83 year old Female arrives for evaluation of change in mental status. Patient is from the [facility]. She got weak yesterday and was lowered to the ground. She did not suffer any injury at that time. She is undergoing treatment for an osteo in the tib-fib region. He is she is getting cefepime for this. Patient reportedly had decreased level of alertness and slow to respond with questioning. She was generally weak and could not stand. No fevers were reported. Patient was having difficulty following commands. EMS was summoned due to the change in mental status and she was brought to the emergency department. Patient denies any headache, chest pain, nausea, back pain. Patient is unsure why she is here at the hospital. Patient also denies any abdominal pain. PAST MEDICAL HISTORY: See Below, osteomyelitis, cellulitis, hypertension, CHF PAST SURGICAL HISTORY: See Below, SOCIAL HISTORY: See Below, retired HOME MEDICATIONS: See Below ALLERGIES: See Below VITALS: See Below PHYSICAL EXAMINATION: GENERAL: Awake, alert, confused-appearing, in no distress HENT: Normocephalic, atraumatic. Oropharynx unremarkable. EYES: Normal conjunctiva. Sclera non-icteric. NECK: Inspection normal. Non-tender. Supple. No nuchal rigidity. FROM. No masses. RESPIRATORY: Clear to auscultation. No wheezes. No rales. Normal respiratory effort. CARDIAC: Normal rate. Normal rhythm. No murmurs. No rubs. Extremities warm and well perfused. Pulses equal. No JVD. GI: Soft, non-distended. No tenderness to palpation. No rebound or guarding. No masses. RECTAL: Deferred. MUSCULOSKELETAL: Atraumatic. Chest examination reveals no tenderness. The back is symmetrical on inspection without obvious abnormality. There is no CVA tenderness to palpation. No joint edema. LOWER EXTREMITIES: Calves are equal size bilaterally and non-tender. No edema. No discoloration. No signs of cellulitis. Small dressing placed on the right distal lower extremity. NEURO: Altered sensorium. Following basic commands. No slurring of the speech but slow to answer questions. Disoriented to place and time. SKIN: No rash or jaundice noted. PROCEDURES: none CRITICAL CARE: none OBSERVATION NOTE: none Past Med/Surg History Medical History (Updated 10/02/23 @ 12:53 by Dheeraj Whiting MD) Fall Cough Depression Cellulitis Acute hip pain Nocturnal hypoxia Right-sided congestive heart failure Sacral insufficiency fracture Cor pulmonale (chronic) Lumbar stenosis with neurogenic claudication Chronic GERD Right heart failure Dependence on nocturnal oxygen therapy RADHA (obstructive sleep apnea) Dyslipidemia Morbid obesity with BMI of 40.0-44.9, adult Mitral valve prolapse Osteoporosis Chronic acquired lymphedema HTN (hypertension) Chronic back pain Surgical History (Updated 09/10/23 @ 00:11 by Kel Noel) Hx of cholecystectomy Status post lumbar spine surgery for decompression of spinal cord 2017 Dr. Wan Status post kyphoplasty L3, L4, L5 2018 Dr. Wan Status post tonsillectomy Status post cataract surgery Status post appendectomy Family History Father Family history of colon cancer Brother Family history of prostate cancer Brother Family history of coronary artery disease Sister Family history of coronary artery disease Brother Family history of diabetes mellitus Social History Smoking Status: Never smoker Second Hand Exposure: No; Do You Dip or Chew Tobacco: No; Hx Alcohol Use: No Hx Substance Use: No Preferred Language: Macedonian Communication Ability: Effective Finish Production Manager Required: No Beliefs That Will Affect Care: None marital status: Single Current Living Situation: Personal Care Facility Current Living Situation Comment: [facility] Feels Safe at Home: Yes Assistive Devices: Oxygen - at Night, Walker and Wheelchair Allergies Allergies Allergy/AdvReac Type Severity Reaction Status Date / Time demeclocycline Allergy Unknown ON Verified 10/02/23 13:36 [facility] sulfamethoxazole Allergy Unknown ON Verified 10/02/23 13:36 [facility] trimethoprim Allergy Unknown ON Verified 10/02/23 13:36 [facility] ropinirole AdvReac Intermediate fluid Verified 10/02/23 13:36 retention pregabalin [From Lyrica] AdvReac Mild Unknown Verified 10/02/23 13:36 Home Meds Home Medications Medication Instructions Recorded Confirmed aspirin 81 mg tablet,delayed 81 mg PO QAM 05/05/18 10/02/23 release omega 0-ygm-vmp-fish oil 1,000 mg 1 cap PO TIDM 05/05/18 10/02/23 (120 mg-180 mg) capsule (Fish Oil) raloxifene 60 mg tablet 60 mg PO QAM osteoporosis 05/05/18 10/02/23 bumetanide 2 mg tablet 2 mg PO BID 12/30/19 10/02/23 fenofibrate 160 mg tablet 160 mg PO DAILY 12/30/19 10/02/23 metolazone 2.5 mg tablet 2.5 mg PO [id number] edema 12/30/19 10/02/23 omeprazole 40 mg capsule,delayed 40 mg PO DAILYBB 12/30/19 10/02/23 release dextromethorphan-guaifenesin 10 10 ml PO Q4H PRN Cough 03/16/22 10/02/23 mg-100 mg/5 mL oral liquid (Tussin DM) lorazepam 0.5 mg tablet 0.5 mg PO HS 03/16/22 10/02/23 vit C 250 mg-vit E 90 mg-zinc 40 1 tab PO BID 03/16/22 10/02/23 mg-copper 1 vj-ajzujm-ifexty capsule (PreserVision AREDS-2) atropine 1 % eye drops 1 drp OPR Q8H PRN Excessive tearing 07/12/23 10/02/23 escitalopram oxalate 10 mg tablet 10 mg PO QAM 07/12/23 10/02/23 ferrous sulfate 142 mg (45 mg 142 mg PO QAM 07/12/23 10/02/23 iron) tablet,extended release gabapentin 100 mg capsule 100 mg PO BID 07/12/23 10/02/23 guaifenesin 600 mg tablet, 600 mg PO BID PRN Congestion 07/12/23 10/02/23 extended release 12 hr (Mucus Relief ER) L.acidop,casei,lactis,rham-B.lact,karen 2 cap PO QAM 10/02/23 10/02/23 625 mg (10 billion cell) capsule (Advanced Probiotic) Protein Liquid 30 ml PO BID r/t wound support 10/02/23 10/02/23 acetaminophen 325 mg tablet 650 mg PO Q6H PRN fever/pain 10/02/23 10/02/23 (Tylenol) bisacodyl 10 mg rectal suppository 10 mg NH DAILY PRN Constipation 10/02/23 10/02/23 (Dulcolax (bisacodyl)) cefepime 2 gram intravenous 2 g IV Q8H R ankle infection 10/02/23 10/02/23 solution loperamide 2 mg capsule 2 mg PO Q3H PRN Diarrhea 10/02/23 10/02/23 magnesium hydroxide 400 mg/5 mL 2,400 mg PO DAILY PRN Constipation 10/02/23 10/02/23 oral suspension (Milk of Magnesia) oxymetazoline 0.05 % nasal spray See Rx Instructions .Route 10/02/23 10/02/23 .COMPLEX PRN nose bleed potassium chloride 20 mEq See Rx Instructions .Route .COMPLEX 10/02/23 10/02/23 tablet,extended release sodium phosphates 19 gram-7 118 ml NH DAILY PRN Constipation 10/02/23 10/02/23 gram/118 mL enema (Enema) spironolactone 100 mg tablet 100 mg PO QAM 10/02/23 10/02/23 Previous Rx's Medication Instructions Recorded apixaban 2.5 mg tablet (Eliquis) 2.5 mg PO BID #60 tabs 07/18/23 Results & Data (ED) Vital Signs Vital Signs - 24 hr 10/02/23 09:04 10/02/23 09:10 10/02/23 09:20 Temperature Temperature Source Pulse Rate 112 H 104 H 103 H Pulse Rate from SpO2 Sensor 113 H 106 H 104 H Respiratory Rate 16 23 17 Respiratory Effort / Characteristics Respiratory Depth Blood Pressure Blood Pressure Mean Pulse Oximetry 91 96 96 Oxygen Delivery Method Sepsis Recent Fever Within 48 Hours Sepsis New/Unexplained Change in Mental Status Sepsis Action Taken by Nursing 10/02/23 09:21 10/02/23 09:30 10/02/23 09:30 Temperature 37.2 C Temperature Source Oral Pulse Rate 109 H 105 H 101 H Pulse Rate from SpO2 Sensor 95 H Respiratory Rate 18 21 Respiratory Effort / Characteristics Non-Labored Spontaneous Respiratory Depth Normal Blood Pressure 117/80 Blood Pressure Mean 92 Pulse Oximetry 97 97 Oxygen Delivery Method Room Air Sepsis Recent Fever Within 48 Hours No Sepsis New/Unexplained Change in Mental Status N/A Sepsis Action Taken by Nursing No Action Required 10/02/23 09:30 10/02/23 09:36 10/02/23 09:40 Temperature Temperature Source Pulse Rate 96 H Pulse Rate from SpO2 Sensor 96 H Respiratory Rate 19 Respiratory Effort / Characteristics Respiratory Depth Blood Pressure 117/80 Blood Pressure Mean 87 Pulse Oximetry 97 96 Oxygen Delivery Method Room Air Sepsis Recent Fever Within 48 Hours Sepsis New/Unexplained Change in Mental Status Sepsis Action Taken by Nursing 10/02/23 09:50 10/02/23 10:38 10/02/23 10:40 Temperature Temperature Source Pulse Rate 93 H 94 H 99 H Pulse Rate from SpO2 Sensor 93 H 93 H 100 H Respiratory Rate 17 20 20 Respiratory Effort / Characteristics Respiratory Depth Blood Pressure Blood Pressure Mean Pulse Oximetry 96 97 94 Oxygen Delivery Method Sepsis Recent Fever Within 48 Hours Sepsis New/Unexplained Change in Mental Status Sepsis Action Taken by Nursing 10/02/23 10:50 10/02/23 11:00 10/02/23 11:00 Temperature Temperature Source Pulse Rate 114 H 94 H Pulse Rate from SpO2 Sensor 101 H 94 H Respiratory Rate 17 16 Respiratory Effort / Characteristics Respiratory Depth Blood Pressure 129/74 Blood Pressure Mean 93 Pulse Oximetry 84 L 97 Oxygen Delivery Method Sepsis Recent Fever Within 48 Hours Sepsis New/Unexplained Change in Mental Status Sepsis Action Taken by Nursing 10/02/23 11:10 10/02/23 11:20 10/02/23 11:30 Temperature Temperature Source Pulse Rate 93 H 88 96 H Pulse Rate from SpO2 Sensor 94 H 87 90 Respiratory Rate 15 15 14 Respiratory Effort / Characteristics Respiratory Depth Blood Pressure Blood Pressure Mean Pulse Oximetry 96 97 97 Oxygen Delivery Method Sepsis Recent Fever Within 48 Hours Sepsis New/Unexplained Change in Mental Status Sepsis Action Taken by Nursing 10/02/23 11:31 10/02/23 11:31 10/02/23 11:40 Temperature Temperature Source Pulse Rate 88 85 Pulse Rate from SpO2 Sensor 88 84 Respiratory Rate 15 15 Respiratory Effort / Characteristics Respiratory Depth Blood Pressure 125/71 Blood Pressure Mean 83 Pulse Oximetry 97 95 Oxygen Delivery Method Sepsis Recent Fever Within 48 Hours Sepsis New/Unexplained Change in Mental Status Sepsis Action Taken by Nursing 10/02/23 11:50 10/02/23 12:00 10/02/23 12:00 Temperature Temperature Source Pulse Rate 84 92 H Pulse Rate from SpO2 Sensor 83 92 H Respiratory Rate 15 15 Respiratory Effort / Characteristics Respiratory Depth Blood Pressure 130/82 Blood Pressure Mean 94 Pulse Oximetry 97 97 Oxygen Delivery Method Sepsis Recent Fever Within 48 Hours Sepsis New/Unexplained Change in Mental Status Sepsis Action Taken by Nursing 10/02/23 12:10 10/02/23 12:20 10/02/23 12:30 Temperature Temperature Source Pulse Rate 88 88 87 Pulse Rate from SpO2 Sensor 90 85 86 Respiratory Rate 16 15 15 Respiratory Effort / Characteristics Respiratory Depth Blood Pressure Blood Pressure Mean Pulse Oximetry 97 99 97 Oxygen Delivery Method Sepsis Recent Fever Within 48 Hours Sepsis New/Unexplained Change in Mental Status Sepsis Action Taken by Nursing 10/02/23 12:30 10/02/23 12:40 02/11/24 12:50 Temperature Temperature Source Pulse Rate 98 H 88 Pulse Rate from SpO2 Sensor 96 H Respiratory Rate 15 15 Respiratory Effort / Characteristics Respiratory Depth Blood Pressure 112/82 Blood Pressure Mean 93 Pulse Oximetry 95 Oxygen Delivery Method Sepsis Recent Fever Within 48 Hours Sepsis New/Unexplained Change in Mental Status Sepsis Action Taken by Nursing 10/02/23 13:00 10/02/23 13:00 10/02/23 13:10 Temperature Temperature Source Pulse Rate 87 81 Pulse Rate from SpO2 Sensor Respiratory Rate 17 16 Respiratory Effort / Characteristics Respiratory Depth Blood Pressure 118/59 L Blood Pressure Mean 89 Pulse Oximetry Oxygen Delivery Method Sepsis Recent Fever Within 48 Hours Sepsis New/Unexplained Change in Mental Status Sepsis Action Taken by Nursing 10/02/23 13:20 10/02/23 13:30 10/02/23 13:30 Temperature Temperature Source Pulse Rate 85 80 Pulse Rate from SpO2 Sensor Respiratory Rate 13 15 Respiratory Effort / Characteristics Respiratory Depth Blood Pressure 97/55 L Blood Pressure Mean 72 Pulse Oximetry Oxygen Delivery Method Sepsis Recent Fever Within 48 Hours Sepsis New/Unexplained Change in Mental Status Sepsis Action Taken by Nursing Laboratory Data 10/02/23 09:10 10/02/23 10:25 Lab Results 10/02/23 10/02/23 10/02/23 Range/Units 09:10 09:22 09:38 WBC 7.51 (4.8-10.8) K/ul RBC 4.25 (4.20-5.40) M/uL Hgb 12.5 (12.0-16.0) g/dl POC Hgb 12.9 (12.0-16.0) g/dl Hct 38.0 (37.0-47.0) % POC Hct 38 (37-47) % MCV 89.4 (80.0-100.0) fL MCH 29.4 (25.0-34.0) pg MCHC 32.9 (32.0-36.0) g/dL RDW Std Deviation 53.5 H (36.4-46.3) fL RDW Coeff of Vicki 16.3 H (11.5-14.5) % Plt Count 432 H (130-400) K/uL MPV 11.1 (9.4-12.4) fL Immature Gran % (Auto) 1.3 % Neut % (Auto) 77.2 % Lymph % (Auto) 8.8 % [place] % (Auto) 12.6 % Eos % (Auto) 0.0 % Baso % (Auto) 0.1 % Neut # (Auto) 5.79 (1.40-6.50) K/uL Lymph # (Auto) 0.66 L (1.20-3.40) K/uL [place] # (Auto) 0.95 H (0.11-0.59) K/uL Eos # (Auto) 0.00 (0.00-0.50) K/uL Baso # (Auto) 0.01 (0.00-0.20) K/uL Immature Gran # (Auto) 0.10 (0.01-0.20) K/uL PT 13.6 H (9.0-12.0) Seconds INR 1.3 H (0.9-1.1) POC Sodium 143 (135-144) mmol/L Sodium 142 (136-145) mmol/L POC Potassium 6.1 H* (3.3-5.0) mmol/L Potassium TNP POC Chloride 118 H (101-112) mmol/L Chloride 114 H (98-107) mmol/L Carbon Dioxide 18 L (21-32) mmol/L POC Total CO2 21 L (24-31) mmol/L Anion Gap 10 (3-11) POC Anion Gap 11.0 L (16-25) mmol/L POC BUN 71 H (7-18) mg/dl BUN 52 H (6-23) mg/dl Creatinine 2.02 H (0.6-1.2) mg/dl POC Creatinine 2.1 H (0.6-1.3) mg/dl Est Cr Clr Drug Dosing 24.1 ml/min Est GFR ( Amer) 25.6 ml/min Est GFR (Non-Af Amer) 22.1 ml/min BUN/Creatinine Ratio 25.7 H (10-20) Glucose 142 H (70-99(Fasting)) mg/dl POC Glucose (other) 146 H (70-99) mg/dl Lactate 1.1 (0.4-2.0) mmol/L Calcium 11.7 H (8.6-10.3) mg/dl POC Ioniz Calcium Sylvester 1.51 H (1.12-1.32) mmol/l Magnesium 1.7 (1.7-2.4) mg/dl Total Bilirubin 0.5 (0.2-1.0) mg/dl AST TNP ALT 13 (7-52) U/L Alkaline Phosphatase 70 (34-104) U/L Troponin I High Sens 16.9 H (0-14) pg/ml Total Protein 7.5 (6.0-8.3) gm/dl Albumin 3.5 (3.4-5.0) gm/dl Globulin 4.0 (2.5-4.0) gm/dl Albumin/Globulin Ratio 0.9 (0.9-2) TSH 2.387 (0.300-4.500) uIu/ml Urine Color Urine Appearance (Clear) Urine pH (4.5-7.5) Ur Specific [place] (1.000-1.030) Urine Protein (Negative) Urine Glucose (UA) (Negative) Urine Ketones (Negative) Urine Blood (Negative) Urine Nitrite (Negative) Urine Bilirubin (Negative) Urine Urobilinogen (Negative) Ur Leukocyte Esterase (Negative) Urine WBC (Auto) (0-5) /hpf Urine RBC (Auto) (0-4) /hpf U Hyaline Cast (Auto) (0-5) /lpf U Epithel Cells (Auto) (0-5) /lpf Urine Bacteria (Auto) (Negative) Nasal Influ A H1 2008 PCR Adenovirus (PCR) B. pertussis DNA (PCR) B.parapertussis DNA PCR C. pneumoniae DNA (PCR) Coronavirus OC43 (PCR) Coronavirus HKU1 (PCR) Coronavirus 229E (PCR) SARS-CoV-2 (PCR) Coronavirus NL63 (PCR) Human Metapneumovir PCR Influenza A (H1) PCR Influenza A (H3) PCR Influenza Type A (PCR) Influenza A Untype (PCR) Influenza Type B (PCR) M. pneumoniae (PCR) Parainfluenza 1 (PCR) Parainfluenza 2 (PCR) Parainfluenza 3 (PCR) Parainfluenza 4 (PCR) RSV (PCR) Entero/Rhino (PCR) 10/02/23 10/02/23 10/02/23 Range/Units 09:42 10:25 10:28 WBC (4.8-10.8) K/ul RBC (4.20-5.40) M/uL Hgb (12.0-16.0) g/dl POC Hgb (12.0-16.0) g/dl Hct (37.0-47.0) % POC Hct (37-47) % MCV (80.0-100.0) fL MCH (25.0-34.0) pg MCHC (32.0-36.0) g/dL RDW Std Deviation (36.4-46.3) fL RDW Coeff of Vicki (11.5-14.5) % Plt Count (130-400) K/uL MPV (9.4-12.4) fL Immature Gran % (Auto) % Neut % (Auto) % Lymph % (Auto) % [place] % (Auto) % Eos % (Auto) % Baso % (Auto) % Neut # (Auto) (1.40-6.50) K/uL Lymph # (Auto) (1.20-3.40) K/uL [place] # (Auto) (0.11-0.59) K/uL Eos # (Auto) (0.00-0.50) K/uL Baso # (Auto) (0.00-0.20) K/uL Immature Gran # (Auto) (0.01-0.20) K/uL PT (9.0-12.0) Seconds INR (0.9-1.1) POC Sodium (135-144) mmol/L Sodium (136-145) mmol/L POC Potassium (3.3-5.0) mmol/L Potassium 4.5 POC Chloride (101-112) mmol/L Chloride (98-107) mmol/L Carbon Dioxide (21-32) mmol/L POC Total CO2 (24-31) mmol/L Anion Gap (3-11) POC Anion Gap (16-25) mmol/L POC BUN (7-18) mg/dl BUN (6-23) mg/dl Creatinine (0.6-1.2) mg/dl POC Creatinine (0.6-1.3) mg/dl Est Cr Clr Drug Dosing ml/min Est GFR ( Amer) ml/min Est GFR (Non-Af Amer) ml/min BUN/Creatinine Ratio (10-20) Glucose (70-99(Fasting)) mg/dl POC Glucose (other) (70-99) mg/dl Lactate (0.4-2.0) mmol/L Calcium (8.6-10.3) mg/dl POC Ioniz Calcium Sylvester (1.12-1.32) mmol/l Magnesium (1.7-2.4) mg/dl Total Bilirubin (0.2-1.0) mg/dl AST 16 ALT (7-52) U/L Alkaline Phosphatase (34-104) U/L Troponin I High Sens (0-14) pg/ml Total Protein (6.0-8.3) gm/dl Albumin (3.4-5.0) gm/dl Globulin (2.5-4.0) gm/dl Albumin/Globulin Ratio (0.9-2) TSH (0.300-4.500) uIu/ml Urine Color Urine Appearance (Clear) Urine pH (4.5-7.5) Ur Specific [place] (1.000-1.030) Urine Protein (Negative) Urine Glucose (UA) (Negative) Urine Ketones (Negative) Urine Blood (Negative) Urine Nitrite (Negative) Urine Bilirubin (Negative) Urine Urobilinogen (Negative) Ur Leukocyte Esterase (Negative) Urine WBC (Auto) (0-5) /hpf Urine RBC (Auto) (0-4) /hpf U Hyaline Cast (Auto) (0-5) /lpf U Epithel Cells (Auto) (0-5) /lpf Urine Bacteria (Auto) (Negative) Nasal Influ A H1 2008 PCR Cancelled Adenovirus (PCR) Cancelled Not Detected B. pertussis DNA (PCR) Cancelled Not Detected B.parapertussis DNA PCR Cancelled Not Detected C. pneumoniae DNA (PCR) Cancelled Not Detected Coronavirus OC43 (PCR) Cancelled Not Detected Coronavirus HKU1 (PCR) Cancelled Not Detected Coronavirus 229E (PCR) Cancelled Not Detected SARS-CoV-2 (PCR) Cancelled Not Detected Coronavirus NL63 (PCR) Cancelled Not Detected Human Metapneumovir PCR Cancelled Not Detected Influenza A (H1) PCR Cancelled Influenza A (H3) PCR Cancelled Influenza Type A (PCR) Cancelled Not Detected Influenza A Untype (PCR) Cancelled Influenza Type B (PCR) Cancelled Not Detected M. pneumoniae (PCR) Cancelled Not Detected Parainfluenza 1 (PCR) Cancelled Not Detected Parainfluenza 2 (PCR) Cancelled Not Detected Parainfluenza 3 (PCR) Cancelled Not Detected Parainfluenza 4 (PCR) Cancelled Not Detected RSV (PCR) Cancelled Not Detected Entero/Rhino (PCR) Cancelled Not Detected 10/02/23 Range/Units 10:38 WBC (4.8-10.8) K/ul RBC (4.20-5.40) M/uL Hgb (12.0-16.0) g/dl POC Hgb (12.0-16.0) g/dl Hct (37.0-47.0) % POC Hct (37-47) % MCV (80.0-100.0) fL MCH (25.0-34.0) pg MCHC (32.0-36.0) g/dL RDW Std Deviation (36.4-46.3) fL RDW Coeff of Vicki (11.5-14.5) % Plt Count (130-400) K/uL MPV (9.4-12.4) fL Immature Gran % (Auto) % Neut % (Auto) % Lymph % (Auto) % [place] % (Auto) % Eos % (Auto) % Baso % (Auto) % Neut # (Auto) (1.40-6.50) K/uL Lymph # (Auto) (1.20-3.40) K/uL [place] # (Auto) (0.11-0.59) K/uL Eos # (Auto) (0.00-0.50) K/uL Baso # (Auto) (0.00-0.20) K/uL Immature Gran # (Auto) (0.01-0.20) K/uL PT (9.0-12.0) Seconds INR (0.9-1.1) POC Sodium (135-144) mmol/L Sodium (136-145) mmol/L POC Potassium (3.3-5.0) mmol/L Potassium POC Chloride (101-112) mmol/L Chloride (98-107) mmol/L Carbon Dioxide (21-32) mmol/L POC Total CO2 (24-31) mmol/L Anion Gap (3-11) POC Anion Gap (16-25) mmol/L POC BUN (7-18) mg/dl BUN (6-23) mg/dl Creatinine (0.6-1.2) mg/dl POC Creatinine (0.6-1.3) mg/dl Est Cr Clr Drug Dosing ml/min Est GFR ( Amer) ml/min Est GFR (Non-Af Amer) ml/min BUN/Creatinine Ratio (10-20) Glucose (70-99(Fasting)) mg/dl POC Glucose (other) (70-99) mg/dl Lactate (0.4-2.0) mmol/L Calcium (8.6-10.3) mg/dl POC Ioniz Calcium [place]vester (1.12-1.32) mmol/l Magnesium (1.7-2.4) mg/dl Total Bilirubin (0.2-1.0) mg/dl AST ALT (7-52) U/L Alkaline Phosphatase (34-104) U/L Troponin I High Sens (0-14) pg/ml Total Protein (6.0-8.3) gm/dl Albumin (3.4-5.0) gm/dl Globulin (2.5-4.0) gm/dl Albumin/Globulin Ratio (0.9-2) TSH (0.300-4.500) uIu/ml Urine Color Yellow Urine Appearance Clear (Clear) Urine pH 6.0 (4.5-7.5) Ur Specific [place] 1.012 (1.000-1.030) Urine Protein Trace H (Negative) Urine Glucose (UA) Negative (Negative) Urine Ketones Negative (Negative) Urine Blood Trace H (Negative) Urine Nitrite Negative (Negative) Urine Bilirubin Negative (Negative) Urine Urobilinogen Negative (Negative) Ur Leukocyte Esterase Negative (Negative) Urine WBC (Auto) 1-5 (0-5) /hpf Urine RBC (Auto) 0-4 (0-4) /hpf U Hyaline Cast (Auto) 1-5 (0-5) /lpf U Epithel Cells (Auto) 5-10 H (0-5) /lpf Urine Bacteria (Auto) Negative (Negative) Nasal Influ A H1 2009 PCR Adenovirus (PCR) B. pertussis DNA (PCR) B.parapertussis DNA PCR C. pneumoniae DNA (PCR) Coronavirus OC43 (PCR) Coronavirus HKU1 (PCR) Coronavirus 229E (PCR) SARS-CoV-2 (PCR) Coronavirus NL63 (PCR) Human Metapneumovir PCR Influenza A (H1) PCR Influenza A (H3) PCR Influenza Type A (PCR) Influenza A Untype (PCR) Influenza Type B (PCR) M. pneumoniae (PCR) Parainfluenza 1 (PCR) Parainfluenza 2 (PCR) Parainfluenza 3 (PCR) Parainfluenza 4 (PCR) RSV (PCR) Entero/Rhino (PCR) Administered Medications Sodium Chloride (Nss) 1,000 mls @ 125 mls/hr IV .Q8H [facility] Stop: 10/02/23 17:44 Last Admin: 10/02/23 10:40 Dose: 125 mls/hr Documented By: LARRY Sodium Chloride (Nss) 500 mls @ 100 mls/hr IV .Q5H [facility] Stop: 10/02/23 19:29 Last Admin: 10/02/23 15:15 Dose: 100 mls/hr Documented By: ADRIANNA Discontinued Medications Sodium Chloride (Nss) 500 mls @ 999 mls/hr IV .Q31M [facility] Stop: 10/02/23 10:15 Last Infusion: 10/02/23 10:44 Dose: Infused Documented By: Admin: 10/02/23 09:39 Dose: 999 mls/hr Documented By: LARRY Vancomycin HCl 2,000 mg/ (Sodium Chloride) 540 mls @ 200 mls/hr IV NOW ONE Stop: 10/02/23 15:29 Last Admin: 10/02/23 13:57 Dose: 200 mls/hr Documented By: ADRIANNA Azithromycin 500 mg/ Dextrose 255 mls @ 125 mls/hr IV NOW ONE Stop: 10/02/23 14:50 Last Admin: 10/02/23 13:58 Dose: 125 mls/hr Documented By: ADRIANNA Imaging Data Radiologist's Impression: Abdomen/Pelvis CT 10/02/23 09:32 CT OF THE ABDOMEN AND PELVIS WITHOUT CONTRAST CLINICAL HISTORY: lower abd pain, AMS, elevated creatinine COMPARISON STUDY: CT of the abdomen and pelvis December 29, 2021. TECHNIQUE: Axial images of the abdomen and pelvis were obtained without IV contrast. Images were reviewed in the axial, sagittal, and coronal planes. Automated exposure control was utilized for the study. A dose lowering technique was utilized adhering to the principles of ALARA. FINDINGS: No pneumatosis, free air or portal venous gas is present. There is moderate cardiomegaly. There are no renal, ureteral or bladder calculi. There is mild dilatation of the bilateral collecting systems. Bladder is moderately distended. Evaluation of the remainder of the abdomen and pelvis is suboptimal as unenhanced exam. Liver, spleen, adrenal glands and pancreas are unremarkable. There is no biliary or pancreatic ductal dilatation. No peripancreatic or pericholecystic stranding is present there is no evidence for a bowel obstruction. Moderate amount of stool within the rectum. No acute fractures are identified. L3 and L4 kyphoplasty are noted. Vertebral body height loss at the L3 level with retropulsion has progressed since prior CT. There are no suspicious osseous lesions IMPRESSION: 1. No urinary calculi. Mild bilateral collecting system dilatation, likely related to bladder distention. 2. No bowel obstruction. No bowel wall thickening on unenhanced exam. Moderate amount of stool within the rectum. ACT 112: Negative or not required by law. Electronically signed by: Lan Wilcox M.D. 10/02/2023 10:26 AM Chest X-Ray 10/02/23 09:32 XR chest 1V portable CLINICAL HISTORY: weakness COMPARISON STUDY: Chest CT March 16, 2022. Chest radiograph August 16, 2023. FINDINGS: There is no pneumothorax or pleural effusion. There is cardiomegaly without overt pulmonary edema. Moderate right upper lobe airspace opacity is present. Linear right basilar opacity favors atelectasis. IMPRESSION: Right upper lobe airspace opacities suggestive of pneumonia. Post treatment radiographs to ensure resolution are recommended. ACT 112: Negative or not required by law. Electronically signed by: Lan Wilcox M.D. 10/02/2023 10:[address] 10/02/23 09:32 CT OF THE HEAD WITHOUT CONTRAST CLINICAL HISTORY: Altered mental status. COMPARISON STUDY: Head CT September 18, 2017. TECHNIQUE: Helical axial images of the head were obtained without IV contrast. Automated exposure control was utilized for the study. A dose lowering technique was utilized adhering to the principles of ALARA. FINDINGS: No acute intracranial hemorrhage, midline shift or mass effect is present. The ventricular system is unremarkable. White matter hypodensities favor small vessel disease. The basal cisterns are patent. No extra-axial collections are present. There are no findings to suggest acute dural sinus thrombosis or acute territorial infarct. No significant calvarial abnormalities are present. Visualized portions of the sinuses and mastoid air cells are clear. IMPRESSION: No acute intracranial findings. ACT 112: Negative or not required by law. Electronically signed by: Lan Wilcox M.D. 10/02/2023 10:16 AM Discharge Plan Visit Data Chief Complaint: Altered Mental Status ED Provider: Dheeraj Whiting Discharge Problem: AMS (altered mental status), Right upper lobe pneumonia, Hypercalcemia, Acute dehydration Discharge Instructions Interventions: ED Discharge Assessment Last Done: 10/02/23 15:42
--- NOTE | 2023-10-02 13:34 | History & Physical Report ---
Date of Service October 02, 2023 Assessment & Plan (1) Right upper lobe pneumonia: (2) Hypercalcemia: (3) Acute dehydration: (4) AMS (altered mental status): (5) Status post ORIF of fracture of ankle: (6) Right-sided congestive heart failure: (7) Cor pulmonale (chronic): (8) HTN (hypertension): (9) Mitral valve prolapse: (10) RADHA (obstructive sleep apnea): (11) Dyslipidemia: (12) Morbid obesity with BMI of 40.0-44.9, adult: (13) Chronic GERD: Plan: RUL PNA Acute Encephalopathy - Admit to med surg with tele - Sputum culture, mucinex, duonebs QID and Q2H prn, tessalon pearls, flutter, incentive spirometry - RVP negative, check MRSA swab - WBC at time of admission 7.1, afebrile, no left shift, troponin is also noted at 16, but pt is denying any chest pain, unlikely that this is ACS, EKG is showing sinus tach without ST wave changes. - BCx x 2, follow, IV cefepime is scheduled to stop tomorrow for the leg wound, added Vanco and azithromycin for HAP - UA appears clear, this encephalopathy is likely infectious d/t pneumonia as it is so acute within past 24 hours in developement. - Lactic acid = 1.1, Procalcitonin not obtained - CXR reviewed personally: Right upper lobe airspace opacities suggestive of pneumonia - Check legionella urine - NSS at 100 ml/hr, already finished 1.5 L, can finsh another bag Hypercalcemia -Calcium 11.7, ionized 1.51 -Trend with a.m. labs -Hydration as above with maintenance fluids JULIO -Creatinine baseline from end july 0.92, currently elevated at 2.02, BUN 52 -Holding Bumex, metolazone, renally reduce medications, avoid nephrotoxins Chronic HFrEF: MVP: Chronic - Currently holding spironolactone and Bumex due to JULIO - Most recent ECHO 02/2022: Normal LV chamber size with mild concentric LVH. EF 55-60%, no LV wall motion abnormalities, mild AV sclerosis. HLD: Chronic, Continue fenofibrate Depression: Chronic, stable, cont gabapentin and Lexapro; continue Prediabetes: -a1c 5.6 on 08/16/23 -Increased risk for delayed wound healing S/p Right ORIF Hx of pseudomonas/proteus - Scheduled to finish IV cefepime Q8H on 10/03 in evening per ID/ortho - Cont eliquis 2.5 mg daily for DVT ppx GERD: Chronic, cont omeprazole, add H2 gary with improvement to dyspepsia, co ntinue DVT ppx: teds, scds, eliquis Lines: 2 PIV FEN/GI: Allow HH diet with assistance CODE: DNR Dispo: From [facility], likely to remain in the hospital x 1-2 days A total of 85 minutes were spent with greater than 50% of that time face to face with the patient, personally reviewing all current laboratories, imaging studies, past medication reconciliation, outpatient chart review, and discussion with specialists to collaborate care for the patient with attending. Please see attending documentation for corrections and/or additions. History of Present Illness Chief Complaint: AMS Primary Care Provider: [facility] This is a 83 yo F with PMHX of R tib/fib s/p ORIF with osteomyelitis on cefepime IV for growing out proteus and pseudomonas in Jul 2023, alopecia areata, amaurosis fugax, RLS, right rotator cuff tendinopathy, prediabetes, CKDIII, hypertension, chronic right CHF, mitral vlave prolapse, HLD, chronic lymphedema, , RADHA, sacral insufficiency fracure in May 2018, L4 compression fracture with severe spinal stenosis, hx of COVID in Jun 2023, and osteoporosis who presents to the hospital with worsening altered mental status and weakness. At baseline she is AAO x 3. Pt cannot answer simple questions during my exam but asks for a drink, which she gulps down at bedside. Pt denies any acute pain. She denies fever, chills. Pt knows a tomlinson catheter has been inserted. She does not know where she is currently. Per nursing staff at [facility], pt was her normal self yesterday morning. She has an episode of knees buckling yesterday around lunch time. She had developed some shaking yesterday afternoon and there were plans to discharge her home soon as she was to complete Cefepime on 10/03 in the evening for the Right ankle wound, and pt began getting anxious. Last evening she had difficulty even standing up out of her chair, where normally is only requiring supervision, and she required a lift to get her into bed. This morning the same nurse was in to give antibiotics, but she appeared flushed, and reported "just not feeling well". Pt again was shakey and weak. Pt was having trouble with feeding herself today, but has not normally had this in the past. No special diet, no thickened liquids. Nursing denies any cough, sputum production, fever. Pt does wear O2 at 2L HS at baseline. Her pulse was noted to be 102 this morning there with vitals, but other vitals normal. Pt was confused for them this morning but could not simple orientation questions. Pt at baseline holds a conversation easily, sets own breakfast trays, would require assistance getting dressed minimally. Archana is the nurse who I spoke with on the phone at [facility]. Allergies Allergy/AdvReac Type Severity Reaction Status Date / Time demeclocycline Allergy Unknown ON Verified 10/02/23 13:36 [facility] sulfamethoxazole Allergy Unknown ON Verified 10/02/23 13:36 [facility] trimethoprim Allergy Unknown ON Verified 10/02/23 13:36 [facility] ropinirole AdvReac Intermediate fluid Verified 10/02/23 13:36 retention pregabalin [From Lyrica] AdvReac Mild Unknown Verified 10/02/23 13:36 Home Medications Medication Instructions Recorded Confirmed Type aspirin 81 mg tablet,delayed 81 mg PO QAM 05/05/18 10/02/23 History release omega 2-sbx-qtc-fish oil 1,000 mg 1 cap PO TIDM 05/05/18 10/02/23 History (120 mg-180 mg) capsule (Fish Oil) raloxifene 60 mg tablet 60 mg PO QAM osteoporosis 05/05/18 10/02/23 History bumetanide 2 mg tablet 2 mg PO BID 12/30/19 10/02/23 History fenofibrate 160 mg tablet 160 mg PO DAILY 12/30/19 10/02/23 History metolazone 2.5 mg tablet 2.5 mg PO 3XWK edema 12/30/19 10/02/23 History omeprazole 40 mg capsule,delayed 40 mg PO DAILYBB 12/30/19 10/02/23 History release dextromethorphan-guaifenesin 10 10 ml PO Q4H PRN Cough 03/16/22 10/02/23 History mg-100 mg/5 mL oral liquid (Tussin DM) lorazepam 0.5 mg tablet 0.5 mg PO HS 03/16/22 10/02/23 History vit C 250 mg-vit E 90 mg-zinc 40 1 tab PO BID 03/16/22 10/02/23 History mg-copper 1 ge-wxjzco-zvrrgi capsule (PreserVision AREDS-2) atropine 1 % eye drops 1 drp OPR Q8H PRN Excessive tearing 07/12/23 10/02/23 History escitalopram oxalate 10 mg tablet 10 mg PO QAM 07/12/23 10/02/23 History ferrous sulfate 142 mg (45 mg 142 mg PO QAM 07/12/23 10/02/23 History iron) tablet,extended release gabapentin 100 mg capsule 100 mg PO BID 07/12/23 10/02/23 History guaifenesin 600 mg tablet, 600 mg PO BID PRN Congestion 07/12/23 10/02/23 History extended release 12 hr (Mucus Relief ER) apixaban 2.5 mg tablet (Eliquis) 2.5 mg PO BID #60 tabs 07/18/23 10/02/23 Rx L.acidop,casei,lactis,rham-B.lact,karen 2 cap PO QAM 10/02/23 10/02/23 History 625 mg (10 billion cell) capsule (Advanced Probiotic) Protein Liquid 30 ml PO BID r/t wound support 10/02/23 10/02/23 History acetaminophen 325 mg tablet 650 mg PO Q6H PRN fever/pain 10/02/23 10/02/23 History (Tylenol) bisacodyl 10 mg rectal suppository 10 mg DC DAILY PRN Constipation 10/02/23 10/02/23 History (Dulcolax (bisacodyl)) cefepime 2 gram intravenous 2 g IV Q8H R ankle infection 10/02/23 10/02/23 History solution loperamide 2 mg capsule 2 mg PO Q3H PRN Diarrhea 10/02/23 10/02/23 History magnesium hydroxide 400 mg/5 mL 2,400 mg PO DAILY PRN Constipation 10/02/23 10/02/23 History oral suspension (Milk of Magnesia) oxymetazoline 0.05 % nasal spray See Rx Instructions .Route 10/02/23 10/02/23 History .COMPLEX PRN nose bleed potassium chloride 20 mEq See Rx Instructions .Route .COMPLEX 10/02/23 10/02/23 History tablet,extended release sodium phosphates 19 gram-7 118 ml DC DAILY PRN Constipation 10/02/23 10/02/23 History gram/118 mL enema (Enema) spironolactone 100 mg tablet 100 mg PO QAM 10/02/23 10/02/23 History Past Med/Surg History Medical History (Updated 10/02/23 @ 12:53 by Dheeraj Whiting MD) Fall Cough Depression Cellulitis Acute hip pain Nocturnal hypoxia Right-sided congestive heart failure Sacral insufficiency fracture Cor pulmonale (chronic) Lumbar stenosis with neurogenic claudication Chronic GERD Right heart failure Dependence on nocturnal oxygen therapy RADHA (obstructive sleep apnea) Dyslipidemia Morbid obesity with BMI of 40.0-44.9, adult Mitral valve prolapse Osteoporosis Chronic acquired lymphedema HTN (hypertension) Chronic back pain Surgical History (Updated 09/10/23 @ 00:11 by Kel Noel) Hx of cholecystectomy Status post lumbar spine surgery for decompression of spinal cord 2017 Dr. Wan Status post kyphoplasty L3, L4, L5 2018 Dr. 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 Beliefs That Will Affect Care: None marital status: Single Current Living Situation: Personal Care Facility Current Living Situation Comment: [facility] Feels Safe at Home: Yes Assistive Devices: Oxygen - at Night, Walker and Wheelchair Review of Systems Review of Systems: Unobtainable due to cognitive status Physical Exam Physical Exam: General: awake, alert, unable to answer my questions, appears confused, no apparent distress, white, obese female Head: Normocephalic, atraumatic ENT: PERRL, EOMI, no pharyngeal exudate, mucous membranes + dry Chest: Diminished breath sounds throughout to auscultation, on room air with O2 sats at 96%, no adventitious breath sounds Cardiac: Regular rate and rhythm, +murmur, no JVD, normal peripheral pulses, good capillary refill Abdominal: NABS x 4 quadrants, soft, nondistended, nontender to palpation, no rebound or guarding Extremities: + lymphedema bilateral LE, no erythema, R lateral ankle with small wound present without surrounding erythema, calfs nontender to palpation Psych: Normal mood and affect Neuro: awake, alert, not oriented, strength intact bilaterally and rated 4/5, no motor deficits, speech is fairly clear, slow, no peripheral sensory deficits Results & Data Results & Data Vital Signs (Past 12 Hours) Vital Signs Temp Pulse Resp BP Pulse Ox O2 Del Method 10/02/23 09:36 97 Room Air 10/02/23 09:30 105 H 10/02/23 09:21 37.2 C 109 H 18 117/80 97 Room Air Laboratory Results 10/02/23 09:10 Aerobic Blood Culture - Pending Blood Anaerobic Blood Culture - Pending 10/02/23 09:10 Aerobic Blood Culture - Pending Blood Anaerobic Blood Culture - Pending 10/02/23 10/02/23 10/02/23 10:38 10:28 10:25 WBC RBC Hgb POC Hgb Hct POC Hct MCV MCH MCHC RDW Std Deviation RDW Coeff of Vicki Plt Count MPV Immature Gran % (Auto) Neut % (Auto) Lymph % (Auto) Lander % (Auto) Eos % (Auto) Baso % (Auto) Neut # (Auto) Lymph # (Auto) Lander # (Auto) Eos # (Auto) Baso # (Auto) Immature Gran # (Auto) PT INR POC Sodium Sodium POC Potassium Potassium 4.5 POC Chloride Chloride Carbon Dioxide POC Total CO2 Anion Gap POC Anion Gap POC BUN BUN Creatinine POC Creatinine Est Cr Clr Drug Dosing Est GFR ( Amer) Est GFR (Non-Af Amer) BUN/Creatinine Ratio Glucose POC Glucose (other) Lactate Calcium POC Ioniz Calcium Sylvester Magnesium Total Bilirubin AST 16 ALT Alkaline Phosphatase Troponin I High Sens Total Protein Albumin Globulin Albumin/Globulin Ratio TSH Urine Color Yellow Urine Appearance Clear Urine pH 6.0 Ur Specific [place] 1.012 Urine Protein Trace H Urine Glucose (UA) Negative Urine Ketones Negative Urine Blood Trace H Urine Nitrite Negative Urine Bilirubin Negative Urine Urobilinogen Negative Ur Leukocyte Esterase Negative Urine WBC (Auto) 1-5 Urine RBC (Auto) 0-4 U Hyaline Cast (Auto) 1-5 U Epithel Cells (Auto) 5-10 H Urine Bacteria (Auto) Negative Nasal Influ A H1 2009 PCR Adenovirus (PCR) Not Detected B. pertussis DNA (PCR) Not Detected B.parapertussis DNA PCR Not Detected C. pneumoniae DNA (PCR) Not Detected Coronavirus OC43 (PCR) Not Detected Coronavirus HKU1 (PCR) Not Detected Coronavirus 229E (PCR) Not Detected SARS-CoV-2 (PCR) Not Detected Coronavirus NL63 (PCR) Not Detected Human Metapneumovir PCR Not Detected Influenza A (H1) PCR Influenza A (H3) PCR Influenza Type A (PCR) Not Detected Influenza A Untype (PCR) Influenza Type B (PCR) Not Detected M. pneumoniae (PCR) Not Detected Parainfluenza 1 (PCR) Not Detected Parainfluenza 2 (PCR) Not Detected Parainfluenza 3 (PCR) Not Detected Parainfluenza 4 (PCR) Not Detected RSV (PCR) Not Detected Entero/Rhino (PCR) Not Detected 10/02/23 10/02/23 10/02/23 09:42 09:38 09:22 WBC RBC Hgb POC Hgb 12.9 Hct POC Hct 38 MCV MCH MCHC RDW Std Deviation RDW Coeff of Vicki Plt Count MPV Immature Gran % (Auto) Neut % (Auto) Lymph % (Auto) Lander % (Auto) Eos % (Auto) Baso % (Auto) Neut # (Auto) Lymph # (Auto) Lander # (Auto) Eos # (Auto) Baso # (Auto) Immature Gran # (Auto) PT INR POC Sodium 143 Sodium POC Potassium 6.1 H* Potassium POC Chloride 118 H Chloride Carbon Dioxide POC Total CO2 21 L Anion Gap POC Anion Gap 11.0 L POC BUN 71 H BUN Creatinine POC Creatinine 2.1 H Est Cr Clr Drug Dosing Est GFR ( Amer) Est GFR (Non-Af Amer) BUN/Creatinine Ratio Glucose POC Glucose (other) 146 H Lactate 1.1 Calcium POC Ioniz Calcium Sylvester 1.51 H Magnesium Total Bilirubin AST ALT Alkaline Phosphatase Troponin I High Sens Total Protein Albumin Globulin Albumin/Globulin Ratio TSH Urine Color Urine Appearance Urine pH Ur Specific [place] Urine Protein Urine Glucose (UA) Urine Ketones Urine Blood Urine Nitrite Urine Bilirubin Urine Urobilinogen Ur Leukocyte Esterase Urine WBC (Auto) Urine RBC (Auto) U Hyaline Cast (Auto) U Epithel Cells (Auto) Urine Bacteria (Auto) Nasal Influ A H1 2008 PCR Cancelled Adenovirus (PCR) Cancelled B. pertussis DNA (PCR) Cancelled B.parapertussis DNA PCR Cancelled C. pneumoniae DNA (PCR) Cancelled Coronavirus OC43 (PCR) Cancelled Coronavirus HKU1 (PCR) Cancelled Coronavirus 229E (PCR) Cancelled SARS-CoV-2 (PCR) Cancelled Coronavirus NL63 (PCR) Cancelled Human Metapneumovir PCR Cancelled Influenza A (H1) PCR Cancelled Influenza A (H3) PCR Cancelled Influenza Type A (PCR) Cancelled Influenza A Untype (PCR) Cancelled Influenza Type B (PCR) Cancelled M. pneumoniae (PCR) Cancelled Parainfluenza 1 (PCR) Cancelled Parainfluenza 2 (PCR) Cancelled Parainfluenza 3 (PCR) Cancelled Parainfluenza 4 (PCR) Cancelled RSV (PCR) Cancelled Entero/Rhino (PCR) Cancelled 10/02/23 09:10 WBC 7.51 RBC 4.25 Hgb 12.5 POC Hgb Hct 38.0 POC Hct MCV 89.4 MCH 29.4 MCHC 32.9 RDW Std Deviation 53.5 H RDW Coeff of Vicki 16.3 H Plt Count 432 H MPV 11.1 Immature Gran % (Auto) 1.3 Neut % (Auto) 77.2 Lymph % (Auto) 8.8 Lander % (Auto) 12.6 Eos % (Auto) 0.0 Baso % (Auto) 0.1 Neut # (Auto) 5.79 Lymph # (Auto) 0.66 L Lander # (Auto) 0.95 H Eos # (Auto) 0.00 Baso # (Auto) 0.01 Immature Gran # (Auto) 0.10 PT 13.6 H INR 1.3 H POC Sodium Sodium 142 POC Potassium Potassium TNP POC Chloride Chloride 114 H Carbon Dioxide 18 L POC Total CO2 Anion Gap 10 POC Anion Gap POC BUN BUN 52 H Creatinine 2.02 H POC Creatinine Est Cr Clr Drug Dosing 24.1 Est GFR ( Amer) 25.6 Est GFR (Non-Af Amer) 22.1 BUN/Creatinine Ratio 25.7 H Glucose 142 H POC Glucose (other) Lactate Calcium 11.7 H POC Ioniz Calcium Sylvester Magnesium 1.7 Total Bilirubin 0.5 AST TNP ALT 13 Alkaline Phosphatase 70 Troponin I High Sens 16.9 H Total Protein 7.5 Albumin 3.5 Globulin 4.0 Albumin/Globulin Ratio 0.9 TSH 2.387 Urine Color Urine Appearance Urine pH Ur Specific [place] Urine Protein Urine Glucose (UA) Urine Ketones Urine Blood Urine Nitrite Urine Bilirubin Urine Urobilinogen Ur Leukocyte Esterase Urine WBC (Auto) Urine RBC (Auto) U Hyaline Cast (Auto) U Epithel Cells (Auto) Urine Bacteria (Auto) Nasal Influ A H1 2009 PCR Adenovirus (PCR) B. pertussis DNA (PCR) B.parapertussis DNA PCR C. pneumoniae DNA (PCR) Coronavirus OC43 (PCR) Coronavirus HKU1 (PCR) Coronavirus 229E (PCR) SARS-CoV-2 (PCR) Coronavirus NL63 (PCR) Human Metapneumovir PCR Influenza A (H1) PCR Influenza A (H3) PCR Influenza Type A (PCR) Influenza A Untype (PCR) Influenza Type B (PCR) M. pneumoniae (PCR) Parainfluenza 1 (PCR) Parainfluenza 2 (PCR) Parainfluenza 3 (PCR) Parainfluenza 4 (PCR) RSV (PCR) Entero/Rhino (PCR) Diagnostic Findings Abdomen/Pelvis CT 10/02/23 09:32 CT OF THE ABDOMEN AND PELVIS WITHOUT CONTRAST CLINICAL HISTORY: lower abd pain, AMS, elevated creatinine COMPARISON STUDY: CT of the abdomen and pelvis December 29, 2021. TECHNIQUE: Axial images of the abdomen and pelvis were obtained without IV contrast. Images were reviewed in the axial, sagittal, and coronal planes. Automated exposure control was utilized for the study. A dose lowering technique was utilized adhering to the principles of ALARA. FINDINGS: No pneumatosis, free air or portal venous gas is present. There is moderate cardiomegaly. There are no renal, ureteral or bladder calculi. There is mild dilatation of the bilateral collecting systems. Bladder is moderately distended. Evaluation of the remainder of the abdomen and pelvis is suboptimal as unenhanced exam. Liver, spleen, adrenal glands and pancreas are unremarkable. There is no biliary or pancreatic ductal dilatation. No peripancreatic or pericholecystic stranding is present there is no evidence for a bowel obstruction. Moderate amount of stool within the rectum. No acute fractures are identified. L3 and L4 kyphoplasty are noted. Vertebral body height loss at the L3 level with retropulsion has progressed since prior CT. There are no suspicious osseous lesions IMPRESSION: 1. No urinary calculi. Mild bilateral collecting system dilatation, likely related to bladder distention. 2. No bowel obstruction. No bowel wall thickening on unenhanced exam. Moderate amount of stool within the rectum. ACT 112: Negative or not required by law. Electronically signed by: Lan Wilcox M.D. 10/02/2023 10:26 AM Chest X-Ray 10/02/23 09:32 XR chest 1V portable CLINICAL HISTORY: weakness COMPARISON STUDY: Chest CT March 16, 2022. Chest radiograph August 16, 2023. FINDINGS: There is no pneumothorax or pleural effusion. There is cardiomegaly without overt pulmonary edema. Moderate right upper lobe airspace opacity is present. Linear right basilar opacity favors atelectasis. IMPRESSION: Right upper lobe airspace opacities suggestive of pneumonia. Post treatment radiographs to ensure resolution are recommended. ACT 112: Negative or not required by law. Electronically signed by: Lan Wilcox M.D. 10/02/2023 10:[address] 10/02/23 09:32 CT OF THE HEAD WITHOUT CONTRAST CLINICAL HISTORY: Altered mental status. COMPARISON STUDY: Head CT September 18, 2017. TECHNIQUE: Helical axial images of the head were obtained without IV contrast. Automated exposure control was utilized for the study. A dose lowering technique was utilized adhering to the principles of ALARA. FINDINGS: No acute intracranial hemorrhage, midline shift or mass effect is present. The ventricular system is unremarkable. White matter hypodensities favor small vessel disease. The basal cisterns are patent. No extra-axial collections are present. There are no findings to suggest acute dural sinus thrombosis or acute territorial infarct. No significant calvarial abnormalities are present. Visualized portions of the sinuses and mastoid air cells are clear. IMPRESSION: No acute intracranial findings. ACT 112: Negative or not required by law. Electronically signed by: Lan Wilcox M.D. 10/02/2023 10:16 AM ECG Additional Comments: Sinus tachycardia, personally reviewed, no ST wave inversions or signs of ische catarina Code Status & VTE Plan Code Status DNR/DNI per documentation Supervising Physician Co-Signing Physician Notes Attending addendum: The patient was seen and examined in emergency room She has been talking less compared with before and thinking that she is dying Remains hemodynamically stable Does not making out any noise during speech Has not been feeling any better since being in the ER On examination No apparent distress at rest Looks depressed but hemodynamically stable Chest-coarse crackles bilaterally more on the right Heart-S1-S2, regular Abdomen-benign Extremities-1+ edema bilaterally with right foot is bandaged secondary to wound 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 CT of the head and abdomen pelvis remained reasonably unremarkable Started with intravenous cefepime, vancomycin and azithromycin Likely will change Zosyn from tomorrow and if MRSA is negative we can discontinue vancomycin Agree with assessment plan as outlined above by Raysa Engle
[2023-10-02] MEDS: VANCOMYCIN HCL 2,000 MG in SODIUM CHLORIDE 0.9% 500 ML IV ONE (13:57)
[2023-10-02] MEDS: AZITHROMYCIN 500 MG in DEXTROSE 5% 250 ML IV ONE (13:58)
[2023-10-02] MEDS ORDERED: ONDANSETRON INJ 2 MG/ML 2 ML VIAL IV PRN (15:42)
[2023-10-02] MEDS ORDERED: guaiFENesin/DEXTROM SYRUP 200MG/20MG 10ML UDC PO PRN (15:59)
[2023-10-02] MEDS: CEFEPIME 2 GM IV SCH (16:48)
--- NOTE | 2023-10-02 16:50 | Electrocardiogram Report ---
Test Reason : Blood Pressure : / mmHG Vent. Rate : 109 BPM Atrial Rate : 109 BPM P-R Int : 192 ms QRS Dur : 086 ms QT Int : 336 ms P-R-T Axes : 049 -07 058 degrees QTc Int : 452 ms Sinus tachycardia with frequent Premature atrial complexes Nonspecific ST abnormality Abnormal ECG When compared with ECG of 12-JUL-2023 19:31, Premature atrial complexes are now Present [place] interval has decreased Confirmed by Hernan Nettles ([id number]) on 10/02/2023 4:50:04 PM Referred By: REFERRED SELF Confirmed By:Ike Nettles
[2023-10-02] MEDS: CEFEPIME 1,000 MG in SYRINGE 0 ML IV SCH (17:26)
--- NOTE | 2023-10-02 18:24 | Pharmacy Report ---
Pharmacy PK ABX Note - Date of Service October 02, 2023 - Assessment and Plan Laboratory Tests 10/02/23 09:10 Creatinine 2.02 H Est Cr Clr Drug Dosing 24.1 Assessment 83 year old F receiving Vanc/Azithromycin for treatment of pulmonary indication. Pertinent microbiologic data pending. * Day # 1 of Vanc/Azithromycin. * 10/03/23: Pt will finish up cefepime-IV for right ankle infection (08/29/23- 10/03/23) Plan Vancomycin * Loading dose: 2000mg (20mg/kg) IV x 1 * Maintenance dose: To be determined * Regimen is predicted to achieve target AUC/JUSTIN of 400-600 mg/L.hr * Vanc Random level ordered for: 10/03/23 AM labs to guide further dosing. Pharmacy will continue to follow and will adjust dose/frequency as necessary. Thank you. Pharmacy has transitioned to AUC monitoring for vancomycin. AUC/JUSTIN is the preferred PK/PD target and is associated with decreased risk of nephrotoxicity compared to traditional trough targets.
[2023-10-02] MEDS: guaiFENesin 600 MG TABCR PO SCH (21:33)
[2023-10-02] MEDS: BENZONATATE 100 MG CAPSULE PO SCH (21:33)
[2023-10-02] MEDS: APIXABAN 2.5 MG TAB PO SCH (21:33)
[2023-10-02] MEDS: GABAPENTIN 100 MG CAP PO SCH (23:15)
[2023-10-03] MEDS ORDERED: VANCOMYCIN HCL 2,500 MG in SODIUM CHLORIDE 0.9% 500 ML IV ONE
[2023-10-03] MEDS: PANTOprazole 40 MG TAB PO SCH (05:52)
[2023-10-03 06:17] LABS: Hematocrit (blood only) 31.3 % (37.0-47.0); Hemoglobin 10.2 g/dl (12.0-16.0); Mean Corpuscular Hgb Conc 32.6 g/dL (32.0-36.0); Mean Corpuscular Volume 88.9 fL (80.0-100.0); Mean Platelet Volume 10.8 fL (9.4-12.4); Platelet Count 365 K/uL (130-400); RDW Coefficient of Variation 15.9 % (11.5-14.5); RDW Standard Deviation 51.3 fL (36.4-46.3); Red Blood Count 3.52 M/uL (4.20-5.40)
[2023-10-03 06:34] LABS: BUN Creatinine Ratio 26.4 (10-20); Calcium 10.1 mg/dl (8.6-10.3); Creatinine Clr Calc Pharmacy 24.7 ml/min; Est GFR (African American) 26.4 ml/min; Est GFR (Non-African American) 22.8 ml/min; Potassium 3.8 mmol/L (3.5-5.1)
[2023-10-03] MEDS: ASPIRIN 81 MG ECTAB PO SCH (10:15)
[2023-10-03] MEDS: ESCITALOPRAM OXALATE 10 MG TAB PO SCH (10:18)
[2023-10-03] MEDS: FERROUS SULFATE 325 MG TAB PO SCH (10:19)
[2023-10-03] MEDS: ADVANCED PROBIOTIC 650 MG CAPSULE PO SCH (10:19)
[2023-10-03] MEDS: RALOXIFENE HCL 60 MG TAB PO SCH (10:20)
[2023-10-03] MEDS: CEROVITE ADV FORMULA TAB PO SCH (10:20)
--- NOTE | 2023-10-03 11:11 | CT Scan Report ---
CT chest diagnostic wo con CLINICAL HISTORY: pneumonia TECHNIQUE: Multidetector row helical CT of the chest was performed. Coronal and sagittal reformations were obtained. Automated dose lowering techniques and/or adjustment according to patient size were u tilized for this exam. CT DOSE: 654.35 mGy.cm Comparison: Comparison is made to CT chest 03/16/2022 FINDINGS: Lungs and pleura: Atelectasis is seen with scattered airspace and interstitial thickening most promin ent in the lower lobes and right upper lobe. This is significantly increased from prior exam Heart and pericardium: Cardiomegaly is seen with biatrial enlargement. Vessels: The pulmonary trunk is enlarged measuring 36 mm. There is mild atherosclerotic disease. Mediastinum and osorio: Subcentimeter lymph nodes are seen. Chest wall and lower neck: Unremarkable. Abdomen: Unremarkable. Bones: Mild degenerative changes are seen. IMPRESSION: New interstitial and airspace opacities compatible with pneumonia. Reactive lymph nodes seen. ACT 112: Negative or not required by law. Electronically signed by: Pancho Membreno M.D. 10/03/2023 11:10 AM
[2023-10-03] MEDS ORDERED: VANCOMYCIN HCL 1,000 MG in SODIUM CHLORIDE 0.9% 250 ML IV SCH (12:00)
[2023-10-03] MEDS: AZITHROMYCIN 250 MG in DEXTROSE 5% 250 ML IV SCH (14:03)
--- NOTE | 2023-10-03 16:42 | Hospitalist Progress Note ---
Date of Service October 03, 2023 Assessment & Plan (1) Right upper lobe pneumonia: (2) Hypercalcemia: (3) Acute dehydration: (4) AMS (altered mental status): (5) Status post ORIF of fracture of ankle: (6) Right-sided congestive heart failure: (7) Cor pulmonale (chronic): (8) HTN (hypertension): (9) Mitral valve prolapse: (10) RADHA (obstructive sleep apnea): (11) Dyslipidemia: (12) Morbid obesity with BMI of 40.0-44.9, adult: (13) Chronic GERD: Plan Pt is an 83yoF with PMHx significant for R tib/fib fracture s/p ORIF with osteomyelitis on IV cefepime growing out proteus and pseudomonas in Jul 2023, alopecia areata, amaurosis fugax, RLS, right rotator cuff tendinopathy, prediabetes, CKDIII, hypertension, chronic right CHF, mitral valve prolapse, HLD, chronic lymphedema, , RADHA, sacral insufficiency, L4 compression fracture with severe spinal stenosis, hx of COVID in Jun 2023, and osteoporosis presenting with weakness and altered mental status. RUL PNA Pt admitted with weakness and AMS No increased oxygen requirement No sepsis on admission- wbc wnl, no tachypnea or fever. Tachycardic. Lactate normal. Chest XRAY was suggestive of RUL pneumonia CT chest confirming pneumonia, reactive lymph nodes and pulm HTN Procalcitonin and MRSA nares negative Respiratory viral panel pending Blood Cx x2 pending, sputum culture not yet collected Legionella pending Continue with Cefepime and azithromycin currently, Flagyl added for possible aspiration component. Consider HAP with recent discharge about a month prior. Mucinex, duonebs QID and Q2H prn, tessalon pearls, flutter, incentive spirometry Pt currently on RA Continue to monitor, provide respiratory support as needed Acute Encephalopathy Likely in setting of pneumonia infection above Head CT unremarkable UA without suggestion of infection Delirium precautions. Frequent reorientation, avoid sedating medication Continue to monitor Dysphagia Difficulty swallowing Speech consult- appreciate recs JLUIO Creatinine baseline from end of July 2023 was ~1.00 Cr elevated at 2.02 on admission Holding Bumex, spironolactone and metolazone- resume as soon as able for CHF noted below Renally reduce medications, avoid nephrotoxins/contrast Cautious fluid hydration Continue to monitor Elevated Troponin hs trop elevated and downtrended 16.9 to 15.5 EKG with sinus tach and PACs Likely demand in setting of above Doubt ACS Cardiomegaly Bilateral Atrial Enlargement Pulmonary artery hypertension Noted on CT chest imaging Last echo 02/2022- noted normal atrial size, EF 50-55%, mild LVH Repeat cho ordered and pending Chronic HFrEF: MVP: Chronic Currently holding home spironolactone, metalozone and Bumex as above due to JULIO Resume as soon as able Hypercalcemia Calcium 11.7, ionized 1.51 Trend with a.m. labs Hydration as above Elevated INR INR elevated to 1.3 Pt on anticoagulation in the form of Eliquis for DVT prophylaxis Continue as noted below Hyperkalemia POC K+ noted to be 6.1 Currently wnl Continue to monitor Chronic Anemia Hgb of 10.2, down from baseline Pending iron, b12 and folate levels Continue home iron supplementation Continue to monitor Constipation Noted on CT abd/pelvis- moderate stool burden noted Started on bowel regimen of scheduled docusate 100mg BIID and miralx daily. PRN glycerin suppository Can de-escalate regimen once pt having bowel movements Noted pt on iron supplementation which can be constipating. S/p Right ORIF Hx of pseudomonas/proteus Scheduled to finish IV cefepime Q8H on 10/03 in evening per ID/ortho recs Will continue Cefepime for pneumonia above Continue Eliquis 2.5 mg daily for DVT ppx Also on aspirin 81mg daily HLD: Chronic, continue fenofibrate Depression: Chronic, stable, cont gabapentin and Lexapro Prediabetes: -a1c 5.6 on 08/16/23 GERD: Chronic, cont ppi, add H2 gary with improvement to dyspepsia, continue Osteoporosis On raloxifene DVT ppx: Eliquis FEN/GI: HH/soft bite sized CODE: DNR Dispo: From [facility] Admission and Anticipated Discharge Date Admission Date: October 02, 2023 Subjective Pt was seen with nursing at bedside. Nursing assisting with medication administration. Pt alert but oriented x1, speech trails off. Appears weak and tired. Review of Systems Review of Systems: All systems reviewed & are unremarkable except as noted in Subjective Physical Exam Physical Exam: General: Alert, not oriented. No acute distress Skin: No noted rashes or bruises Psych: Appropriate mood and affect Neuro: oriented x1, weak, decreased strength bilaterally HEENT: NC/AT CV: RRR Resp: Breath sounds clear bilaterally, no increased effort of breathing. Abdomen: Soft Extremities: edema in lower extremities bilaterally. Results & Data Results & Data Vital Signs (Past 12 Hours) Vital Signs Temp Pulse Pulse Resp BP Pulse Ox O2 Del Method 10/03/23 16:26 36.9 C 92 H 18 147/69 H 94 Room Air 10/03/23 15:56 69 10/03/23 13:03 81 10/03/23 13:00 Room Air 10/03/23 13:00 36.8 C 82 18 111/72 96 Room Air 10/03/23 07:31 90
[2023-10-04] MEDS ORDERED: GLYCERIN ADULT 12 SUPP/BOX SUPP PR PRN (03:55)
[2023-10-04] MEDS: metroNIDAZOLE 500 MG/100 ML BAG IV SCH (05:04)
[2023-10-04 05:24] LABS: Basophils # (auto) 0.01 K/uL (0.00-0.20); Basophils % (auto) 0.2 %; Eosinophils # (auto) 0.01 K/uL (0.00-0.50); Eosinophils % (auto) 0.2 %; Hematocrit (blood only) 32.4 % (37.0-47.0); Hemoglobin 10.2 g/dl (12.0-16.0); Immature Granulocytes # (auto) 0.11 K/uL (0.01-0.20); Immature Granulocytes % (auto) 1.7 %; Lymphocytes % (auto) 14.3 %; Mean Corpuscular Hemoglobin 28.8 pg (25.0-34.0); Mean Corpuscular Hgb Conc 31.5 g/dL (32.0-36.0); Mean Corpuscular Volume 91.5 fL (80.0-100.0); Mean Platelet Volume 10.6 fL (9.4-12.4); Monocytes # (auto) 0.88 K/uL (0.11-0.59); Neutrophils # (auto) 4.39 K/uL (1.40-6.50); Neutrophils % (auto) 69.6 %; Platelet Count 348 K/uL (130-400); RDW Coefficient of Variation 16.7 % (11.5-14.5); Red Blood Count 3.54 M/uL (4.20-5.40)
[2023-10-04 05:37] LABS: BUN Creatinine Ratio 25.5 (10-20); Est GFR (African American) 24.2 ml/min; Est GFR (Non-African American) 20.8 ml/min; Magnesium 1.7 mg/dl (1.7-2.4); Potassium 4.2 mmol/L (3.5-5.1)
[2023-10-04 05:57] LABS: Ferritin 112.6 ng/ml (8-388)
[2023-10-04 06:03] LABS: Folate (Folic Acid),Ser orPlas 13.05 ng/ml (>5.38)
[2023-10-04] MEDS: CEFEPIME 1,000 MG in SYRINGE 0 ML IV SCH (06:10)
[2023-10-04] MEDS: DOCUSATE SODIUM 100 MG CAP PO SCH (08:23)
[2023-10-04] MEDS: POLYETHYLENE (MIRALAX) 17 GM PACK PO SCH (08:23)
[2023-10-04] MEDS ORDERED: Heparin IV Adult Wt-Based Low-Dose *NO* INITIAL Bolus Protocol IV SCH (09:45)
[2023-10-04] MEDS: SODIUM CHLORIDE 0.9% 1,000 ML IV ONE (09:54)
[2023-10-04] MEDS: METOPROLOL TARTRATE 1 MG/ML VIAL IV STA ×2 (10:07→10:47)
--- NOTE | 2023-10-04 11:02 | Cardiology Consultation ---
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 Recent hospitalization with lower leg wound infection and rehospitalization this admission with acute mental status changes, findings of right upper lobe pneumonia. Clinical course with since hospitalization slowly worsening renal insufficiency Patient today lapsed into atrial fibrillation with rapid response Mild lightheadedness and dizziness weakness no chest pain Patient had been anticoagulated with apixaban receiving dose this morning 1. Atrial fibrillation with rapid response: IV metoprolol to be administered for rate control. Fluid bolus to allow given marginal blood pressure. Patient currently anticoagulated with apixaban but on hold due to worsening renal insufficiency after dose this morning. Will give dose of oral metoprolol 25 mg p.o. now follow heart rates and blood pressure with recommended fluid resuscitation May consider IV amiodarone if intolerant to or beta-gary treatment ineffective given diastolic dysfunction Echocardiogram demonstrates preserved LV systolic function mild mitral insufficiency and moderate left atrial enlargement, aortic sclerosis Will need to discern plans for anticoagulation with repeat renal function ordered for this afternoon. Patient did receive dose of apixaban this morning. If renal insufficiency continues to worsen will initiate IV heparin this evening, no bolus hold for now History of Present Illness Reason for Consultation: Atrial fibrillation with rapid ventricular response, new onset Attending Physician: Mandi Ward MD History of Present Illness Patient is an 83-year-old female whose past history is notable for 1. Longstanding hypertension with hypertensive heart disease, chronic diastolic heart failure. 2. Mild to moderate mitral insufficiency. 3. Pickwickian physiology with chronic right heart failure, peripheral edema, as well as chronic lymphedema. Patient presents this admission with change in mental status weakness with findings consistent with acute right upper lobe pneumonia. Recent hospitalization with wound infection right leg. Patient treated with antibiotics since admission clinical course notable for worsening renal insufficiency Acutely lapsed into atrial fibrillation earlier this morning. Patient with mild dizziness but unaware of any tachypalpitations. On apixaban and has received dose this morning No overt bleeding. Patient feels weak and fatigue Denies cough. Denies difficulty swallowing or taking medication current, but chronic dysphagia an issue Allergies Allergy/AdvReac Type Severity Reaction Status Date / Time demeclocycline Allergy Unknown ON Verified 10/02/23 13:36 [facility] sulfamethoxazole Allergy Unknown ON Verified 10/02/23 13:36 [facility] trimethoprim Allergy Unknown ON Verified 10/02/23 13:36 [facility] ropinirole AdvReac Intermediate fluid Verified 10/02/23 13:36 retention pregabalin [From Lyrica] AdvReac Mild Unknown Verified 10/02/23 13:36 Home Medications Medication Instructions Recorded Confirmed Type aspirin 81 mg tablet,delayed 81 mg PO QAM 05/05/18 10/02/23 History release omega 3-xha-dhn-fish oil 1,000 mg 1 cap PO TIDM 05/05/18 10/02/23 History (120 mg-180 mg) capsule (Fish Oil) raloxifene 60 mg tablet 60 mg PO QAM osteoporosis 05/05/18 10/02/23 History bumetanide 2 mg tablet 2 mg PO BID 12/30/19 10/02/23 History fenofibrate 160 mg tablet 160 mg PO DAILY 12/30/19 10/02/23 History metolazone 2.5 mg tablet 2.5 mg PO 3XWK edema 12/30/19 10/02/23 History omeprazole 40 mg capsule,delayed 40 mg PO DAILYBB 12/30/19 10/02/23 History release dextromethorphan-guaifenesin 10 10 ml PO Q4H PRN Cough 03/16/22 10/02/23 History mg-100 mg/5 mL oral liquid (Tussin DM) lorazepam 0.5 mg tablet 0.5 mg PO HS 03/16/22 10/02/23 History vit C 250 mg-vit E 90 mg-zinc 40 1 tab PO BID 03/16/22 10/02/23 History mg-copper 1 [id number] capsule (PreserVision AREDS-2) atropine 1 % eye drops 1 drp OPR Q8H PRN Excessive tearing 07/12/23 10/02/23 History escitalopram oxalate 10 mg tablet 10 mg PO QAM 07/12/23 10/02/23 History ferrous sulfate 142 mg (45 mg 142 mg PO QAM 07/12/23 10/02/23 History iron) tablet,extended release gabapentin 100 mg capsule 100 mg PO BID 07/12/23 10/02/23 History guaifenesin 600 mg tablet, 600 mg PO BID PRN Congestion 07/12/23 10/02/23 History extended release 12 hr (Mucus Relief ER) apixaban 2.5 mg tablet (Eliquis) 2.5 mg PO BID #60 tabs 07/18/23 10/02/23 Rx L.acidop,casei,lactis,rham-B.lact,karen 2 cap PO QAM 10/02/23 10/02/23 History 625 mg (10 billion cell) capsule (Advanced Probiotic) Protein Liquid 30 ml PO BID r/t wound support 10/02/23 10/02/23 History acetaminophen 325 mg tablet 650 mg PO Q6H PRN fever/pain 10/02/23 10/02/23 History (Tylenol) bisacodyl 10 mg rectal suppository 10 mg MT DAILY PRN Constipation 10/02/23 10/02/23 History (Dulcolax (bisacodyl)) cefepime 2 gram intravenous 2 g IV Q8H R ankle infection 10/02/23 10/02/23 History solution loperamide 2 mg capsule 2 mg PO Q3H PRN Diarrhea 10/02/23 10/02/23 History magnesium hydroxide 400 mg/5 mL 2,400 mg PO DAILY PRN Constipation 10/02/23 10/02/23 History oral suspension (Milk of Magnesia) oxymetazoline 0.05 % nasal spray See Rx Instructions .Route 10/02/23 10/02/23 History .COMPLEX PRN nose bleed potassium chloride 20 mEq See Rx Instructions .Route .COMPLEX 10/02/23 10/02/23 History tablet,extended release sodium phosphates 19 gram-7 118 ml MT DAILY PRN Constipation 10/02/23 10/02/23 History gram/118 mL enema (Enema) spironolactone 100 mg tablet 100 mg PO QAM 10/02/23 10/02/23 History Patient History Medical History Fall Cough Depression Cellulitis Acute hip pain Nocturnal hypoxia Right-sided congestive heart failure Sacral insufficiency fracture Cor pulmonale (chronic) Lumbar stenosis with neurogenic claudication Chronic GERD Right heart failure Dependence on nocturnal oxygen therapy RADHA (obstructive sleep apnea) Dyslipidemia Morbid obesity with BMI of 40.0-44.9, adult Mitral valve prolapse Osteoporosis Chronic acquired lymphedema HTN (hypertension) Chronic back pain Surgical History Hx of cholecystectomy Status post lumbar spine surgery for decompression of spinal cord 2017 Dr. Wan Status post kyphoplasty L3, L4, L5 2018 Dr. Wan Status post tonsillectomy Status post cataract surgery Status post appendectomy Family History Father Family history of colon cancer Brother Family history of prostate cancer Brother Family history of coronary artery disease Sister Family history of coronary artery disease Brother Family history of diabetes mellitus Social History Smoking Status: Never smoker Second Hand Exposure: No; Do You Dip or Chew Tobacco: No; Hx Alcohol Use: No Hx Substance Use: No Preferred Language: Zambian Communication Ability: Effective Communication Ability Comment: confused Applier Required: No Beliefs That Will Affect Care: None marital status: Single Current Living Situation: Jail Current Living Situation Comment: Person [facility] Other Information That Helps Us Care for You: No Feels Safe at Home: Yes Assistive Devices: Walker and Wheelchair Review of Systems Review of Systems: All systems reviewed & are unremarkable except as noted in HPI & below Physical Exam Constitutional: + ill appearing and + obese; no acute di stress Eyes: PERRL, conjunctivae normal, anicteric sclerae Neck: trachea midline, no thyromegaly Respiratory: Auscultation: + crackles (Right chest) Cardiovascular: Rate/Rhythm: + tachycardic and + irregularly irregular Vessels: no JVD Extremities: no edema Gastrointestinal (Abdomen): normal bowel sounds, soft, nontender, no hepatosplenomegaly Results & Data Vital Signs (Past 12 Hours) Vital Signs Temp Pulse Pulse Resp BP BP BP 10/04/23 10:47 127 H 111/73 10/04/23 10:46 127 H 111/73 10/04/23 10:21 123 H 89/53 L 10/04/23 09:38 72/48 L 10/04/23 09:27 36.5 C 142 H 18 68/47 L 10/04/23 08:44 36.4 C L 82 18 123/86 10/04/23 07:19 64 10/04/23 03:31 36.5 C 87 20 146/80 H Pulse Ox O2 Del Method 10/04/23 10:47 10/04/23 10:46 10/04/23 10:21 10/04/23 09:38 10/04/23 09:27 96 Room Air 10/04/23 08:44 95 Room Air 10/04/23 07:19 10/04/23 03:31 96 Room Air Laboratory Results Laboratory Results - last 24 hr 10/04/23 04:52 WBC 6.30 RBC 3.54 L Hgb 10.2 L Hct 32.4 L MCV 91.5 MCH 28.8 MCHC 31.5 L RDW Std Deviation 56.0 H RDW Coeff of Vicki 16.7 H Plt Count 348 MPV 10.6 Immature Gran % (Auto) 1.7 Neut % (Auto) 69.6 Lymph % (Auto) 14.3 Bracken % (Auto) 14.0 Eos % (Auto) 0.2 Baso % (Auto) 0.2 Neut # (Auto) 4.39 Lymph # (Auto) 0.90 L Bracken # (Auto) 0.88 H Eos # (Auto) 0.01 Baso # (Auto) 0.01 Immature Gran # (Auto) 0.11 Sodium 143 Potassium 4.2 Chloride 117 H Carbon Dioxide 17 L Anion Gap 9 BUN 54 H Creatinine 2.12 H Est Cr Clr Drug Dosing 23.0 Est GFR ( Amer) 24.2 Est GFR (Non-Af Amer) 20.8 BUN/Creatinine Ratio 25.5 H Glucose 120 H Calcium 10.0 Phosphorus 3.0 Magnesium 1.7 Iron 51 Ferritin 112.6 B-Natriuretic Peptide 210 H Vitamin B12 625 Folate 13.05
[2023-10-04] MEDS: METOPROLOL TARTRATE 25 MG TAB PO SCH (12:01)
[2023-10-04 15:20] LABS: BUN Creatinine Ratio 26.1 (10-20); Calcium 9.3 mg/dl (8.6-10.3); Creatinine Clr Calc Pharmacy 25.9 ml/min; Est GFR (African American) 27.9 ml/min; Est GFR (Non-African American) 24.1 ml/min; Potassium 3.7 mmol/L (3.5-5.1)
--- NOTE | 2023-10-04 15:44 | Hospitalist Progress Note ---
Date of Service October 04, 2023 Assessment & Plan (1) Right upper lobe pneumonia: (2) Hypercalcemia: (3) Acute dehydration: (4) AMS (altered mental status): (5) Status post ORIF of fracture of ankle: (6) Right-sided congestive heart failure: (7) Cor pulmonale (chronic): (8) HTN (hypertension): (9) Mitral valve prolapse: (10) RADHA (obstructive sleep apnea): (11) Dyslipidemia: (12) Morbid obesity with BMI of 40.0-44.9, adult: (13) Chronic GERD: Plan Pt is an 83yoF with PMHx significant for R tib/fib fracture s/p ORIF with osteomyelitis on IV cefepime growing out proteus and pseudomonas in Jul 2023, alopecia areata, amaurosis fugax, RLS, right rotator cuff tendinopathy, prediabetes, CKDIII, hypertension, chronic right CHF, mitral valve prolapse, HLD, chronic lymphedema, , RADHA, sacral insufficiency, L4 compression fracture with severe spinal stenosis, hx of COVID in Jun 2023, and osteoporosis presenting with weakness and altered mental status. RUL PNA Pt admitted with weakness and AMS No increased oxygen requirement No sepsis on admission- wbc wnl, no tachypnea or fever. Tachycardic. Lactate normal. Chest XRAY was suggestive of RUL pneumonia CT chest confirming pneumonia, reactive lymph nodes and pulm HTN Procalcitonin and MRSA nares negative Respiratory viral panel pending Blood Cx x2 pending, sputum culture not yet collected Legionella pending Continue with Cefepime and azithromycin currently, Flagyl added for possible aspiration component. Consider HAP with recent discharge about a month prior. Mucinex, duonebs QID and Q2H prn, tessalon pearls, flutter, incentive spirometry Pt currently on RA Continue to monitor, provide respiratory support as needed Acute Encephalopathy Likely in setting of pneumonia infection above Head CT unremarkable UA without suggestion of infection Delirium precautions. Frequent reorientation, avoid sedating medication Continue to monitor Atrial Fibrillation Pt with new onset atrial fibrillation episode on 10/04 Hypotensive at the time 70s/40s, pt reporting dizziness however orienting, talking Fluid bolus, IV Lopressor 5mg Pt on Eliquis 2.5mg BID for DVT prophylaxis post orthopedic surgery in 2022 Received dose in AM, IV heparin ordered to begin in the evening urgent consult to cardiology- appreciate recs -no cardioversion at this time -po metoprolol tartrate initiation, 25mg BID pt converted to sinus rhythm later in the day per cardiology, pt can resume Eliquis Continue to monitor on telemetry JULIO Creatinine baseline from end of July 2023 was ~1.00 Cr elevated at 2.02 on admission Holding Bumex, spironolactone and metolazone- resume as soon as able for CHF noted below Renally reduce medications, avoid nephrotoxins/contrast Cautious fluid hydration as needed Continue to monitor Elevated Troponin hs trop elevated and downtrended 16.9 to 15.5 EKG with sinus tach and PACs Likely demand in setting of above Doubt ACS Cardiomegaly Bilateral Atrial Enlargement Pulmonary artery hypertension Diastolic CHF Chronic lower extremity edema Cardiomegaly and atrial enlargement noted on CT chest imaging Last echo 02/2022- noted normal atrial size, EF 50-55%, mild LVH Repeat echo-EF 50-55%, Grade I diastolic dysfunction Currently holding home spironolactone, metalozone and Bumex as above due to JULIO Daily weights, I and O's Resume meds as soon as able gentle hydration as needed for JULIO noted above Dysphagia Difficulty swallowing Speech consult- appreciate recs Hypercalcemia Calcium 11.7, ionized 1.51 Trend with a.m. labs Hydration as above Elevated INR INR elevated to 1.3 Pt on anticoagulation in the form of Eliquis for DVT prophylaxis Continue as noted below Hyperkalemia POC K+ noted to be 6.1 Currently wnl Continue to monitor Chronic Anemia Hgb of 10.2, down from baseline Pending iron, b12 and folate levels Continue home iron supplementation Continue to monitor Constipation Noted on CT abd/pelvis- moderate stool burden noted Started on bowel regimen of scheduled docusate 100mg BIID and miralx daily. PRN glycerin suppository Can de-escalate regimen once pt having bowel movements Noted pt on iron supplementation which can be constipating. S/p Right ORIF Hx of pseudomonas/proteus Scheduled to finish IV cefepime Q8H on 10/03 in evening per ID/ortho recs Will continue Cefepime for pneumonia above Continue Eliquis 2.5 mg daily for DVT ppx Also on aspirin 81mg daily HLD: Chronic, continue fenofibrate Depression: Chronic, stable, cont gabapentin and Lexapro Prediabetes: -a1c 5.6 on 08/16/23 GERD: Chronic, cont ppi, add H2 gary with improvement to dyspepsia, continue Osteoporosis On raloxifene DVT ppx: Eliquis FEN/GI: HH/soft bite sized CODE: DNR Dispo: From [facility] Admission and Anticipated Discharge Date Admission Date: October 02, 2023 Subjective Pt was seen in the AM. Stated that she "did not feel good'. Stated that she was dizzy. Denied SOB or chest pain. At the time per nursing pt was in atrial fibrillation. EKG was ordered and confirmed a fib with rvr. BP at the time 70s/40s. Review of Systems Review of Systems: All systems reviewed & are unremarkable except as noted in Subjective Physical Exam Physical Exam: General: Alert, not oriented. mild distress Skin: No noted rashes or bruises Psych: Appropriate mood and affect Neuro: oriented x1, weak, decreased strength bilaterally HEENT: NC/AT CV: Irregular Resp: Breath sounds clear bilaterally, no increased effort of breathing. Abdomen: Soft Extremities: edema in lower extremities bilaterally. Results & Data Results & Data Vital Signs (Past 12 Hours) Vital Signs Temp Pulse Pulse Resp BP BP BP 10/04/23 14:56 64 10/04/23 11:11 132 H 101/61 10/04/23 10:47 127 H 111/73 10/04/23 10:46 127 H 111/73 10/04/23 10:21 123 H 89/53 L 10/04/23 09:38 72/48 L 10/04/23 09:27 36.5 C 142 H 18 68/47 L 10/04/23 08:44 36.4 C L 82 18 123/86 10/04/23 08:30 10/04/23 07:19 64 Pulse Ox O2 Del Method 10/04/23 14:56 10/04/23 11:11 10/04/23 10:47 10/04/23 10:46 10/04/23 10:21 10/04/23 09:38 10/04/23 09:27 96 Room Air 10/04/23 08:44 95 Room Air 10/04/23 08:30 Room Air 10/04/23 07:19
--- NOTE | 2023-10-04 16:52 | Communication Note ---
Date of Service: October 04, 2023 Telemetry reviewed with patient demonstrating spontaneous conversion to sinus rhythm. No Marty arrhythmias or pauses. Renal function demonstrates improvement after IV fluids will resume apixaban 2.5 mg p.o. twice daily
[2023-10-04] MEDS: APIXABAN 2.5 MG TAB PO SCH (20:47)
[2023-10-04] MEDS ORDERED: HEPARIN SODIUM/DEXTROSE 25,000 UNITS/500 ML BAG IV SCH (21:00)
[2023-10-05] MEDS: ACETAMINOPHEN 325 MG TAB PO PRN (02:50)
[2023-10-05 05:33] LABS: BUN Creatinine Ratio 25.4 (10-20); Calcium 8.9 mg/dl (8.6-10.3); Creatinine Clr Calc Pharmacy 22.9 ml/min; Est GFR (Non-African American) 20.7 ml/min; Magnesium 1.5 mg/dl (1.7-2.4); Phosphorus 3.6 mg/dl (2.5-4.9); Potassium 3.6 mmol/L (3.5-5.1)
[2023-10-05 05:35] LABS: Basophils # (auto) 0.01 K/uL (0.00-0.20); Basophils % (auto) 0.2 %; Hematocrit (blood only) 30.9 % (37.0-47.0); Hemoglobin 9.6 g/dl (12.0-16.0); Immature Granulocytes # (auto) 0.14 K/uL (0.01-0.20); Immature Granulocytes % (auto) 2.5 %; Lymphocytes % (auto) 12.5 %; Mean Corpuscular Hemoglobin 28.4 pg (25.0-34.0); Mean Corpuscular Hgb Conc 31.1 g/dL (32.0-36.0); Mean Corpuscular Volume 91.4 fL (80.0-100.0); Mean Platelet Volume 11.2 fL (9.4-12.4); Monocytes % (auto) 12.5 %; Neutrophils # (auto) 4.07 K/uL (1.40-6.50); Neutrophils % (auto) 72.3 %; Platelet Count 317 K/uL (130-400); RDW Coefficient of Variation 16.8 % (11.5-14.5); RDW Standard Deviation 55.8 fL (36.4-46.3); Red Blood Count 3.38 M/uL (4.20-5.40); White Blood Count 5.62 K/ul (4.8-10.8)
--- NOTE | 2023-10-05 06:15 | Electrocardiogram Report ---
Test Reason : Blood Pressure : / mmHG Vent. Rate : 124 BPM Atrial Rate : 124 BPM P-R Int : 000 ms QRS Dur : 086 ms QT Int : 234 ms P-R-T Axes : 000 -16 195 degrees QTc Int : 336 ms Atrial fibrillation with rapid ventricular response Minimal voltage criteria for LVH, may be normal variant Cannot rule out Anterior infarct , age undetermined Nonspecific ST and T wave abnormality Abnormal ECG When compared with ECG of 02-OCT-2023 09:07, Atrial fibrillation has replaced Sinus rhythm T wave inversion now evident in Lateral leads Confirmed by Brenden Tubbs ([id number]) on 10/05/2023 6:14:58 AM Referred By: REFERRED SELF Confirmed By:Brenden Tubbs
--- NOTE | 2023-10-05 12:58 | Cardiology Progress Note ---
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 Recent hospitalization with lower leg wound infection and rehospitalization this admission with acute mental status changes, findings of right upper lobe pneumonia. Clinical course with since hospitalization slowly worsening renal insufficiency Patient today lapsed into atrial fibrillation with rapid response Mild lightheadedness and dizziness weakness no chest pain Patient had been anticoagulated with apixaban receiving dose this morning 1. Atrial fibrillation with rapid response: IV metoprolol to be administered for rate control. Fluid bolus to allow given marginal blood pressure. Patient currently anticoagulated with apixaban but on hold due to worsening renal insufficiency after dose this morning. Will give dose of oral metoprolol 25 mg p.o. now follow heart rates and blood pressure with recommended fluid resuscitation May consider IV amiodarone if intolerant to or beta-gary treatment ineffective given diastolic dysfunction Echocardiogram demonstrates preserved LV systolic function mild mitral insufficiency and moderate left atrial enlargement, aortic sclerosis Will need to discern plans for anticoagulation with repeat renal function ordered for this afternoon. Patient did receive dose of apixaban this morning. If renal insufficiency continues to worsen will initiate IV heparin this evening, no bolus hold for now 10/05/2023 1.Paroxysmal atrial fibrillation: Maintaining sinus rhythm. Will change metoprolol to tartrate to metoprolol succinate 12.5 mg twice per day. Patient anticoagulated with reduced dose apixaban. 2. Right upper lobe pneumonia 3. Dehydration/anorexia. Encouraged increased p.o. intake. Did respond to fluid resuscitation yesterday with IV fluid. Continue to hold diuretics 4. Chronic diastolic heart failure currently compensated 5. Acute on chronic renal insufficiency Admission and Anticipated Discharge Date Admission Date: October 02, 2023 Subjective Patient seen and examined, chart, medications, telemetry reviewed. Slightly brighter today denies any current complaints. Telemetry without further atrial fibrillation or arrhythmias. Patient notes poor oral intake "no appetite or desire" Taking medications without difficulty Review of Systems Review of Systems: All systems reviewed & are unremarkable except as noted in Subjective Physical Exam Constitutional: + obese; no acute distress Eyes: PERRL, conjunctivae normal, anicteric sclerae Neck: trachea midline, no thyromegaly Respiratory: Auscultation: + diminished lung sounds Cardiovascular: Rate/Rhythm: regular rate and regular rhythm Vessels: no JVD Extremities: no edema Gastrointestinal (Abdomen): normal bowel sounds, soft, nontender, no hepatosplenomegaly Musculoskeletal: no cyanosis or clubbing, extremities motor strength 5/5 Results & Data Vital Signs (Past 12 Hours) Vital Signs Temp Pulse Pulse Pulse Resp BP Pulse Ox 10/05/23 11:06 36.4 C L 57 L 16 124/78 98 10/05/23 10:56 10/05/23 07:56 36.4 C L 70 20 124/67 96 10/05/23 07:06 71 10/05/23 02:34 36.6 C 72 16 111/67 95 O2 Del Method 10/05/23 11:06 Room Air 10/05/23 10:56 Room Air 10/05/23 07:56 Room Air 10/05/23 07:06 10/05/23 02:34 Room Air Laboratory Results Laboratory Results - last 24 hr 10/02/23 10/04/23 10/05/23 15:17 14:46 04:54 WBC 5.62 RBC 3.38 L Hgb 9.6 L Hct 30.9 L MCV 91.4 MCH 28.4 MCHC 31.1 L RDW Std Deviation 55.8 H RDW Coeff of Vicki 16.8 H Plt Count 317 MPV 11.2 Immature Gran % (Auto) 2.5 Neut % (Auto) 72.3 Lymph % (Auto) 12.5 [place] % (Auto) 12.5 Eos % (Auto) 0.0 Baso % (Auto) 0.2 Neut # (Auto) 4.07 Lymph # (Auto) 0.70 L [place] # (Auto) 0.70 H Eos # (Auto) 0.00 Baso # (Auto) 0.01 Immature Gran # (Auto) 0.14 Sodium 137 135 L Potassium 3.7 3.6 Chloride 113 H 113 H Carbon Dioxide 16 L 13 L Anion Gap 8 9 BUN 49 H 54 H Creatinine 1.88 H 2.13 H Est Cr Clr Drug Dosing 25.9 22.9 Est GFR ( Amer) 27.9 24.0 Est GFR (Non-Af Amer) 24.1 20.7 BUN/Creatinine Ratio 26.1 H 25.4 H Glucose 164 H 111 H Calcium 9.3 8.9 Phosphorus 3.6 Magnesium 1.5 L Urine Legionella Ag SEE NOTE
--- NOTE | 2023-10-05 16:31 | Hospitalist Progress Note ---
Date of Service October 05, 2023 Assessment & Plan (1) Right upper lobe pneumonia: (2) Hypercalcemia: (3) Acute dehydration: (4) AMS (altered mental status): (5) Status post ORIF of fracture of ankle: (6) Right-sided congestive heart failure: (7) Cor pulmonale (chronic): (8) HTN (hypertension): (9) Mitral valve prolapse: (10) RADHA (obstructive sleep apnea): (11) Dyslipidemia: (12) Morbid obesity with BMI of 40.0-44.9, adult: (13) Chronic GERD: Plan Pt is an 83yoF with PMHx significant for R tib/fib fracture s/p ORIF with osteomyelitis on IV cefepime growing out proteus and pseudomonas in Jul 2023, alopecia areata, amaurosis fugax, RLS, right rotator cuff tendinopathy, prediabetes, CKDIII, hypertension, chronic right CHF, mitral valve prolapse, HLD, chronic lymphedema, RADHA, sacral insufficiency, L4 compression fracture with severe spinal stenosis, hx of COVID in Jun 2023, and osteoporosis presenting with weakness and altered mental status. RUL PNA Pt admitted with weakness and AMS No increased oxygen requirement No sepsis on admission- wbc wnl, no tachypnea or fever. Tachycardic. Lactate normal. Chest XRAY was suggestive of RUL pneumonia CT chest confirming pneumonia, reactive lymph nodes and pulm HTN Procalcitonin and MRSA nares negative Respiratory viral panel negative Blood Cx x2 pending, sputum culture not yet collected Legionella negative Continue with Cefepime and azithromycin currently, Flagyl added for possible aspiration component. Consider HAP with recent discharge about a month prior. Mucinex, duonebs QID and Q2H prn, tessalon pearls, flutter, incentive spirometry Pt currently on RA Continue to monitor, provide respiratory support as needed Acute Encephalopathy Likely in setting of pneumonia infection above Head CT unremarkable UA without suggestion of infection Delirium precautions. Frequent reorientation, avoid sedating medication Continue to monitor Atrial Fibrillation Pt with new onset atrial fibrillation episode on 10/04 Hypotensive at the time 70s/40s, pt reporting dizziness however orienting, talking Fluid bolus, IV Lopressor 5mg Pt on Eliquis 2.5mg BID for DVT prophylaxis post orthopedic surgery in 2022 Received dose in AM, IV heparin ordered to begin in the evening urgent consult to cardiology- appreciate recs -no cardioversion at this time -po metoprolol tartrate initiation, 25mg BID -> switch to metoprolol succinate 12.5 mg bid pt converted to sinus rhythm later in the day per cardiology, pt can resume Eliquis- lower dose 2.5 bid (d/t renal function) Continue to monitor on telemetry Received fluid, hold diuretics for now JULIO Creatinine baseline from end of July 2023 was ~1.00 Cr elevated at 2.02 on admission Holding Bumex, spironolactone and metolazone- resume as soon as able for CHF noted below Renally reduce medications, avoid nephrotoxins/contrast Cautious fluid hydration as needed Continue to monitor Elevated Troponin hs trop elevated and downtrended 16.9 to 15.5 EKG with sinus tach and PACs Likely demand in setting of above Doubt ACS Cardiomegaly Bilateral Atrial Enlargement Pulmonary artery hypertension Diastolic CHF Chronic lower extremity edema Cardiomegaly and atrial enlargement noted on CT chest imaging Last echo 02/2022- noted normal atrial size, EF 50-55%, mild LVH Repeat echo-EF 50-55%, Grade I diastolic dysfunction Currently holding home spironolactone, metalozone and Bumex as above due to JULIO Daily weights, I and O's Resume meds as soon as able gentle hydration as needed for JULIO noted above Dysphagia Difficulty swallowing Speech consult- appreciate recs Hypercalcemia Calcium 11.7, ionized 1.51 Trend with a.m. labs Hydration as above Elevated INR INR elevated to 1.3 Pt on anticoagulation in the form of Eliquis for DVT prophylaxis Continue as noted below Hyperkalemia POC K+ noted to be 6.1 Currently wnl Continue to monitor Chronic Anemia Hgb of 10.2, down from baseline Pending iron, b12 and folate levels Continue home iron supplementation Continue to monitor Constipation Noted on CT abd/pelvis- moderate stool burden noted Started on bowel regimen of scheduled docusate 100mg BIID and miralx daily. PRN glycerin suppository Can de-escalate regimen once pt having bowel movements Noted pt on iron supplementation which can be constipating. S/p Right ORIF Hx of pseudomonas/proteus Scheduled to finish IV cefepime Q8H on 10/03 in evening per ID/ortho recs Will continue Cefepime for pneumonia above Continue Eliquis 2.5 mg daily for DVT ppx Also on aspirin 81mg daily HLD: Chronic, continue fenofibrate Depression: Chronic, stable, cont gabapentin and Lexapro Prediabetes: -a1c 5.6 on 08/16/23 GERD: Chronic, cont ppi, add H2 gary with improvement to dyspepsia, continue Osteoporosis On raloxifene DVT ppx: Eliquis FEN/GI: HH/soft bite sized CODE: DNR Dispo: From [facility] Admission and Anticipated Discharge Date Admission Date: October 02, 2023 Subjective Pt seen in follow up of pna, then developed afib w/ rvr - > converted to sinus Pt confused on admission, mental status seems to be improving Pt is sitting up in bed in NAD, niece is sitting at the bedside Pt is eating lunch, says she feels better Denies any chest pain, shortness of breath, palpitations No abd. pain, n/v Review of Systems Review of Systems: All systems reviewed & are unremarkable except as noted in Subjective Physical Exam Physical Exam: General: WD/WN in NAD HEENT: NC/AT, R pupil > L (chronic per niece) CV: rrr Resp: + mild rhonchi, no increased effort of breathing. on RA Abdomen: Soft, nontender, + bowel sounds Neuro: awake but not able to answer all questions appropriately (per niece mental status improved), speech fluent, generally weak Extremities: edema in lower extremities bilaterally. Skin: No noted rashes or bruises Results & Data Results & Data Vital Signs (Past 12 Hours) Vital Signs Temp Pulse Pulse Pulse Resp BP BP 10/05/23 15:55 36.3 C L 64 17 102/62 10/05/23 15:28 56 L 10/05/23 11:06 36.4 C L 57 L 16 124/78 10/05/23 10:56 10/05/23 07:56 36.4 C L 70 20 124/67 10/05/23 07:06 71 Pulse Ox O2 Del Method 10/05/23 15:55 94 Room Air 10/05/23 15:28 10/05/23 11:06 98 Room Air 10/05/23 10:56 Room Air 10/05/23 07:56 96 Room Air 10/05/23 07:06 Laboratory Results 10/05/23 Range/Units 04:54 WBC 5.62 (4.8-10.8) K/ul RBC 3.38 L (4.20-5.40) M/uL Hgb 9.6 L (12.0-16.0) g/dl Hct 30.9 L (37.0-47.0) % MCV 91.4 (80.0-100.0) fL MCH 28.4 (25.0-34.0) pg MCHC 31.1 L (32.0-36.0) g/dL RDW Std Deviation 55.8 H (36.4-46.3) fL RDW Coeff of Vicki 16.8 H (11.5-14.5) % Plt Count 317 (130-400) K/uL MPV 11.2 (9.4-12.4) fL Immature Gran % (Auto) 2.5 % Neut % (Auto) 72.3 % Lymph % (Auto) 12.5 % [place] % (Auto) 12.5 % Eos % (Auto) 0.0 % Baso % (Auto) 0.2 % Neut # (Auto) 4.07 (1.40-6.50) K/uL Lymph # (Auto) 0.70 L (1.20-3.40) K/uL [place] # (Auto) 0.70 H (0.11-0.59) K/uL Eos # (Auto) 0.00 (0.00-0.50) K/uL Baso # (Auto) 0.01 (0.00-0.20) K/uL Immature Gran # (Auto) 0.14 (0.01-0.20) K/uL Sodium 135 L (136-145) mmol/L Potassium 3.6 (3.5-5.1) mmol/L Chloride 113 H (98-107) mmol/L Carbon Dioxide 13 L (21-32) mmol/L Anion Gap 9 (3-11) BUN 54 H (6-23) mg/dl Creatinine 2.13 H (0.6-1.2) mg/dl Est Cr Clr Drug Dosing 22.9 ml/min Est GFR ( Amer) 24.0 ml/min Est GFR (Non-Af Amer) 20.7 ml/min BUN/Creatinine Ratio 25.4 H (10-20) Glucose 111 H (70-99(Fasting)) mg/dl Calcium 8.9 (8.6-10.3) mg/dl Phosphorus 3.6 (2.5-4.9) mg/dl Magnesium 1.5 L (1.7-2.4) mg/dl Medications Administered Current Inpatient Medications Acetaminophen (Acetaminophen 325 Mg Tab) 650 mg PO Q4H PRN PRN Reason: Moderate Pain (Scale 4, 5, 6) Stop: 11/01/23 15:41 Last Admin: 10/05/23 02:50 Dose: 650 mg Apixaban (Apixaban 2.5 Mg Tab) 2.5 mg PO BID [facility] Stop: 11/03/23 20:59 Last Admin: 10/05/23 08:38 Dose: 2.5 mg Aspirin (Aspirin 81 Mg Ectab) 81 mg PO QAM [facility] Stop: 11/02/23 08:59 Last Admin: 10/05/23 08:39 Dose: 81 mg Benzonatate (Benzonatate 100 Mg Capsule) 100 mg PO TID [facility] Stop: 11/01/23 20:59 Last Admin: 10/05/23 13:57 Dose: 100 mg Docusate Sodium (Docusate Sodium 100 Mg Cap) 100 mg PO BID [facility] Stop: 11/03/23 08:59 Last Admin: 10/05/23 08:38 Dose: 100 mg Escitalopram Oxalate (Escitalopram Oxalate 10 Mg Tab) 10 mg PO QAM [facility] Stop: 11/02/23 08:59 Last Admin: 10/05/23 08:39 Dose: 10 mg Ferrous Sulfate (Ferrous Sulfate 325 Mg Tab) [facility] [place] Stop: 11/02/23 08:59 Last Admin: 10/05/23 08:39 Dose: 325 mg Gabapentin (Gabapentin 100 Mg Cap) 100 mg PO BID [facility] Stop: 11/01/23 20:59 Last Admin: 10/05/23 08:38 Dose: 100 mg Glycerin (Glycerin Adult 12 Supp/Box Supp) 1 supp PA DAILY PRN PRN Reason: Constipation Stop: 11/03/23 03:54 Guaifenesin (Guaifenesin 600 Mg Tabcr) 1,200 mg PO Q12 [facility] Stop: 11/01/23 20:59 Last Admin: 10/05/23 08:38 Dose: 1,200 mg Guaifenesin/Dextromethorphan (Guaifenesin/Dextrom Syrup 200mg/20mg 10ml Udc) 10 ml PO Q4H PRN PRN Reason: Cough Stop: 11/01/23 15:58 Azithromycin 250 mg/ Dextrose 252.5 mls @ 125 mls/hr IV Q24H [facility] Stop: 10/09/23 12:59 Last Infusion: 10/05/23 16:06 Dose: Infused Cefepime HCl 1,000 mg/ Syringe 10 mls @ 5 mls/min IV Q12H [facility]; Protocol Stop: 10/11/23 05:59 Last Admin: 10/05/23 05:36 Dose: 5 mls/min Metronidazole (Flagyl) 500 mg in 100 mls @ 100 mls/hr IV Q8H [facility]; Protocol Stop: 10/11/23 03:59 Last Infusion: 10/05/23 13:57 Dose: Infused Lactobacillus Acidophilus (Advanced Probiotic 1250 Mg Capsule) 2 cap PO QAM [facility] Stop: 11/02/23 08:59 Last Admin: 10/05/23 08:38 Dose: 2 cap Magnesium Oxide (Magnesium Oxide 400 Mg Tab) 400 mg PO BID [facility] Stop: 11/04/23 16:24 Metoprolol Succinate (Metoprolol Succ 25mg Ext Rel Tab) 12.5 mg PO BID [facility] Stop: 11/04/23 20:59 Multivitamins/Minerals (Cerovite Adv Formula Tab) 1 tab PO DAILY [facility] Stop: 11/02/23 08:59 Last Admin: 10/05/23 08:38 Dose: 1 tab Ondansetron HCl (Ondansetron Inj 2 Mg/Ml 2 Ml Vial) 4 mg IV Q4H PRN PRN Reason: Nausea And Vomiting Stop: 11/01/23 15:41 Pantoprazole Sodium (Pantoprazole 40 Mg Tab) 40 mg PO DAILYBB [facility] Stop: 11/02/23 06:29 Last Admin: 10/05/23 05:37 Dose: 40 mg Polyethylene Glycol (Polyethylene (Miralax) 17 Gm Pack) 17 gm PO DAILY [facility] Stop: 11/03/23 08:59 Last Admin: 10/05/23 08:37 Dose: 17 gm Raloxifene HCl (Raloxifene Hcl 60 Mg Tab) 60 mg PO QAM [facility] Stop: 11/02/23 08:59 Last Admin: 10/05/23 08:38 Dose: 60 mg
[2023-10-05] MEDS: POTASSIUM CHLORIDE 10 MEQ TABCR PO STA (17:35)
[2023-10-05] MEDS: MAGNESIUM OXIDE 400 MG TAB PO SCH (17:35)
[2023-10-05] MEDS: METOPROLOL SUCC 25MG EXT REL TAB PO SCH (20:37)
[2023-10-06 01:57] LABS: Appearance Urine Turbid (Clear); Bacteria Urine Automated Negative (Negative); Bilirubin Urine Negative (Negative); Blood Urine 2+ (Negative); Color Urine Yellow; Epithelial Cell Urine Auto >30 /lpf (0-5); Glucose Urine UA Negative (Negative); Ketones Urine Negative (Negative); Leukocyte Esterase Urine 3+ (Negative); Nitrite Urine Negative (Negative); Protein Urine 2+ (Negative); Specific Gravity Urine 1.018 (1.000-1.030); Urobilinogen Urine Negative (Negative); WBC Urine Automated >30 /hpf (0-5); pH Urine 5.5 (4.5-7.5)
[2023-10-06 02:12] LABS: Amorphous Sediment Urine Present (None Prsent)
[2023-10-06 05:33] LABS: Hematocrit (blood only) 32.1 % (37.0-47.0); Hemoglobin 10.3 g/dl (12.0-16.0); Immature Granulocytes # (auto) 0.13 K/uL (0.01-0.20); Immature Granulocytes % (auto) 3.4 %; Lymphocytes # (auto) 0.58 K/uL (1.20-3.40); Lymphocytes % (auto) 15.2 %; Mean Corpuscular Hemoglobin 28.9 pg (25.0-34.0); Mean Corpuscular Hgb Conc 32.1 g/dL (32.0-36.0); Mean Corpuscular Volume 90.2 fL (80.0-100.0); Mean Platelet Volume 11.1 fL (9.4-12.4); Monocytes # (auto) 0.58 K/uL (0.11-0.59); Monocytes % (auto) 15.2 %; Neutrophils # (auto) 2.52 K/uL (1.40-6.50); Neutrophils % (auto) 66.2 %; Nucleated RBC # (auto) 0.02 K/uL (0.00-0.12); Nucleated RBC % (auto) 0.5 %; Platelet Count 322 K/uL (130-400); RDW Coefficient of Variation 16.5 % (11.5-14.5); RDW Standard Deviation 54.4 fL (36.4-46.3); Red Blood Count 3.56 M/uL (4.20-5.40); White Blood Count 3.81 K/ul (4.8-10.8)
[2023-10-06 05:38] LABS: BUN Creatinine Ratio 23.7 (10-20); Est GFR (African American) 21.7 ml/min; Est GFR (Non-African American) 18.7 ml/min; Magnesium 1.7 mg/dl (1.7-2.4); Phosphorus 4.2 mg/dl (2.5-4.9); Potassium 3.4 mmol/L (3.5-5.1)
--- NOTE | 2023-10-06 07:32 | Hospitalist Progress Note ---
Date of Service October 06, 2023 Assessment & Plan (1) Right upper lobe pneumonia: (2) Hypercalcemia: (3) Acute dehydration: (4) AMS (altered mental status): (5) Status post ORIF of fracture of ankle: (6) Right-sided congestive heart failure: (7) Cor pulmonale (chronic): (8) HTN (hypertension): (9) Mitral valve prolapse: (10) RADHA (obstructive sleep apnea): (11) Dyslipidemia: (12) Morbid obesity with BMI of 40.0-44.9, adult: (13) Chronic GERD: Plan Pt is an 83yoF with PMHx significant for R tib/fib fracture s/p ORIF with osteomyelitis on IV cefepime growing out proteus and pseudomonas in Jul 2023, alopecia areata, amaurosis fugax, RLS, right rotator cuff tendinopathy, prediabetes, CKDIII, hypertension, chronic right CHF, mitral valve prolapse, HLD, chronic lymphedema, RADHA, sacral insufficiency, L4 compression fracture with severe spinal stenosis, hx of COVID in Jun 2023, and osteoporosis presenting with weakness and altered mental status. RUL PNA Pt admitted with weakness and AMS No increased oxygen requirement No sepsis on admission- wbc wnl, no tachypnea or fever. Tachycardic. Lactate normal. Chest XRAY was suggestive of RUL pneumonia CT chest confirming pneumonia, reactive lymph nodes and pulm HTN Procalcitonin and MRSA nares negative Respiratory viral panel negative Blood Cx x2 pending, sputum culture not yet collected Legionella negative Continue with Cefepime and azithromycin currently, Flagyl added for possible aspiration component. Consider HAP with recent discharge about a month prior. Mucinex, duonebs QID and Q2H prn, tessalon pearls, flutter, incentive spirometry Pt currently on RA Continue to monitor, provide respiratory support as needed CT chest obtained 10/03 - New interstitial and airspace opacities compatible with pneumonia. Reactive lymph nodes seen. Pulmonary hypertension is noted. Discussed w/ pulmonary med., appreciate their input Acute Encephalopathy Likely in setting of pneumonia infection above Head CT unremarkable UA without suggestion of infection Delirium precautions. Frequent reorientation, avoid sedating medication Continue to monitor Mental status improving Atrial Fibrillation Pt with new onset atrial fibrillation episode on 10/04 Hypotensive at the time 70s/40s, pt reporting dizziness however orienting, talking Fluid bolus, IV Lopressor 5mg Pt on Eliquis 2.5mg BID for DVT prophylaxis post orthopedic surgery in 2022 Received dose in AM, IV heparin ordered to begin in the evening urgent consult to cardiology- appreciate recs -no cardioversion at this time -po metoprolol tartrate initiation, 25mg BID -> switch to metoprolol succinate 12.5 mg bid pt converted to sinus rhythm later in the day per cardiology, pt can resume Eliquis- lower dose 2.5 bid (d/t renal function) Continue to monitor on telemetry Received fluid, hold diuretics for now JULIO Creatinine baseline from end of July 2023 was ~1.00 Cr elevated at 2.02 on admission Holding Bumex, spironolactone and metolazone- resume as soon as able for CHF noted below Renally reduce medications, avoid nephrotoxins/contrast Cautious fluid hydration as needed Continue to monitor Nephrology consulted - appreciate their input, gentle IV bicarb , replace K Elevated Troponin hs trop elevated and downtrended 16.9 to 15.5 EKG with sinus tach and PACs Likely demand in setting of above Doubt ACS Cardiomegaly Bilateral Atrial Enlargement Pulmonary artery hypertension Diastolic CHF Chronic lower extremity edema Cardiomegaly and atrial enlargement noted on CT chest imaging Last echo 02/2022- noted normal atrial size, EF 50-55%, mild LVH Repeat echo-EF 50-55%, Grade I diastolic dysfunction Currently holding home spironolactone, metalozone and Bumex as above due to JULIO Daily weights, I and O's Resume meds as soon as able gentle hydration as needed for JULIO noted above Dysphagia Difficulty swallowing Speech consult- appreciate recs Hypercalcemia Calcium 11.7, ionized 1.51 calcium level then improved Hydration as above , monitor, nephrology also on board Elevated INR INR elevated to 1.3 Pt on anticoagulation in the form of Eliquis for DVT prophylaxis Continue as noted below Hyperkalemia POC K+ noted to be 6.1 Currently wnl Continue to monitor Chronic Anemia Hgb of 10.2, down from baseline Pending iron, b12 and folate levels Continue home iron supplementation Continue to monitor Constipation Noted on CT abd/pelvis- moderate stool burden noted Started on bowel regimen of scheduled docusate 100mg BID and miralx daily. PRN glycerin suppository Can de-escalate regimen now as pt having bowel movements Noted pt on iron supplementation which can be constipating. S/p Right ORIF Hx of pseudomonas/proteus Scheduled to finish IV cefepime Q8H on 10/03 in evening per ID/ortho recs Will continue Cefepime for pneumonia above Continue Eliquis 2.5 mg daily for DVT ppx Also on aspirin 81mg daily small wound noted at R ankle - wound cultx ordered, wound care and discussed w/ orthopedics Dr. Garcia HLD: Chronic, continue fenofibrate Depression: Chronic, stable, cont gabapentin and Lexapro Prediabetes: -a1c 5.6 on 08/16/23 GERD: Chronic, cont ppi, add H2 gary with improvement to dyspepsia, continue Osteoporosis On raloxifene DVT ppx: Eliquis FEN/GI: HH/soft bite sized CODE: DNR Dispo: From [facility] Admission and Anticipated Discharge Date Admission Date: October 02, 2023 Subjective Pt seen in follow up of pna, then developed afib w/ rvr - > converted to sinus Pt confused on admission, mental status seems to be improving Pt is sitting up in bed in NAD Denies any chest pain, shortness of breath, palpitations + diarrhea today - c. diff ordered Cr up and bicarb low - nephrology consulted to help w/ management. gentle fluids started, cont. to hold diuretics Ct chest findings discussed w/ pulm. Pt has hx of ankle surg. and osteo - still has small wound at R ankle - ordered wound cultx, wound care and discussed w/ orthopedic surgery Review of Systems Review of Systems: All systems reviewed & are unremarkable except as noted in Subjective Physical Exam Physical Exam: General: WD/WN in NAD HEENT: NC/AT, R pupil > L (chronic per niece) CV: rrr Resp: + mild rhonchi, no increased effort of breathing. on RA Abdomen: Soft, nontender, + bowel sounds Neuro: awake but not able to answer all questions appropriately (per niece mental status improved), speech fluent, generally weak Extremities: edema in lower extremities bilaterally. Skin: No noted rashes or bruises Results & Data Results & Data Vital Signs (Past 12 Hours) Vital Signs Temp Pulse Pulse Resp BP BP Pulse Ox 10/06/23 04:42 36.3 C L 75 18 118/74 97 10/05/23 23:11 36.9 C 86 20 141/82 H 94 10/05/23 21:58 77 10/05/23 19:40 36.3 C L 74 20 109/68 97 O2 Del Method 10/06/23 04:42 Room Air 10/05/23 23:11 Room Air 10/05/23 21:58 10/05/23 19:40 Room Air Laboratory Results 10/06/23 10/06/23 Range/Units 04:38 01:30 WBC 3.81 L (4.8-10.8) K/ul RBC 3.56 L (4.20-5.40) M/uL Hgb 10.3 L (12.0-16.0) g/dl Hct 32.1 L (37.0-47.0) % MCV 90.2 (80.0-100.0) fL MCH 28.9 (25.0-34.0) pg MCHC 32.1 (32.0-36.0) g/dL RDW Std Deviation 54.4 H (36.4-46.3) fL RDW Coeff of Vicki 16.5 H (11.5-14.5) % Plt Count 322 (130-400) K/uL MPV 11.1 (9.4-12.4) fL Immature Gran % (Auto) 3.4 % Neut % (Auto) 66.2 % Lymph % (Auto) 15.2 % Centre % (Auto) 15.2 % Eos % (Auto) 0.0 % Baso % (Auto) 0.0 % Neut # (Auto) 2.52 (1.40-6.50) K/uL Lymph # (Auto) 0.58 L (1.20-3.40) K/uL Centre # (Auto) 0.58 (0.11-0.59) K/uL Eos # (Auto) 0.00 (0.00-0.50) K/uL Baso # (Auto) 0.00 (0.00-0.20) K/uL Immature Gran # (Auto) 0.13 (0.01-0.20) K/uL Absolute Nucleated RBC 0.02 (0.00-0.12) K/uL Nucleated RBC % (auto) 0.5 % Sodium 133 L (136-145) mmol/L Potassium 3.4 L (3.5-5.1) mmol/L Chloride 111 H (98-107) mmol/L Carbon Dioxide 14 L (21-32) mmol/L Anion Gap 8 (3-11) BUN 55 H (6-23) mg/dl Creatinine 2.32 H (0.6-1.2) mg/dl Est Cr Clr Drug Dosing 21.0 ml/min Est GFR ( Amer) 21.7 ml/min Est GFR (Non-Af Amer) 18.7 ml/min BUN/Creatinine Ratio 23.7 H (10-20) Glucose 105 H (70-99(Fasting)) mg/dl Calcium 9.0 (8.6-10.3) mg/dl Phosphorus 4.2 (2.5-4.9) mg/dl Magnesium 1.7 (1.7-2.4) mg/dl Urine Color Yellow Urine Appearance Turbid A (Clear) Urine pH 5.5 (4.5-7.5) Ur Specific [place] 1.018 (1.000-1.030) Urine Protein 2+ H (Negative) Urine Glucose (UA) Negative (Negative) Urine Ketones Negative (Negative) Urine Blood 2+ H (Negative) Urine Nitrite Negative (Negative) Urine Bilirubin Negative (Negative) Urine Urobilinogen Negative (Negative) Ur Leukocyte Esterase 3+ H (Negative) Urine WBC (Auto) >30 H (0-5) /hpf Urine RBC (Auto) 10-30 H (0-4) /hpf U Hyaline Cast (Auto) 5-10 H (0-5) /lpf U Epithel Cells (Auto) >30 H (0-5) /lpf Urine Bacteria (Auto) Negative (Negative) Amorphous Sediment Present A (None Prsent) Granular Casts 1-5 H (0) /lpf Urine Yeast Budding A (None Prsent) Medications Administered Current Inpatient Medications Acetaminophen (Acetaminophen 325 Mg Tab) 650 mg PO Q4H PRN PRN Reason: Moderate Pain (Scale 4, 5, 6) Stop: 11/01/23 15:41 Last Admin: 10/05/23 21:09 Dose: 650 mg Apixaban (Apixaban 2.5 Mg Tab) 2.5 mg PO BID [facility] Stop: 11/03/23 20:59 Last Admin: 10/05/23 20:39 Dose: 2.5 mg Aspirin (Aspirin 81 Mg Ectab) 81 mg PO QAM [facility] Stop: 11/02/23 08:59 Last Admin: 10/05/23 08:39 Dose: 81 mg Benzonatate (Benzonatate 100 Mg Capsule) 100 mg PO TID [facility] Stop: 11/01/23 20:59 Last Admin: 10/05/23 20:37 Dose: 100 mg Docusate Sodium (Docusate Sodium 100 Mg Cap) 100 mg PO BID [facility] Stop: 11/03/23 08:59 Last Admin: 10/05/23 20:40 Dose: 100 mg Escitalopram Oxalate (Escitalopram Oxalate 10 Mg Tab) 10 mg PO QAM [facility] Stop: 11/02/23 08:59 Last Admin: 10/05/23 08:39 Dose: 10 mg Ferrous Sulfate (Ferrous Sulfate 325 Mg Tab) [facility] [place] Stop: 11/02/23 08:59 Last Admin: 10/05/23 08:39 Dose: 325 mg Gabapentin (Gabapentin 100 Mg Cap) 100 mg PO BID [facility] Stop: 11/01/23 20:59 Last Admin: 10/05/23 20:38 Dose: 100 mg Glycerin (Glycerin Adult 12 Supp/Box Supp) 1 supp IA DAILY PRN PRN Reason: Constipation Stop: 11/03/23 03:54 Guaifenesin (Guaifenesin 600 Mg Tabcr) 1,200 mg PO Q12 [facility] Stop: 11/01/23 20:59 Last Admin: 10/05/23 20:38 Dose: 1,200 mg Guaifenesin/Dextromethorphan (Guaifenesin/Dextrom Syrup 200mg/20mg 10ml Udc) 10 ml PO Q4H PRN PRN Reason: Cough Stop: 11/01/23 15:58 Azithromycin 250 mg/ Dextrose 252.5 mls @ 125 mls/hr IV Q24H [facility] Stop: 10/09/23 12:59 Last Infusion: 10/05/23 16:06 Dose: Infused Cefepime HCl 1,000 mg/ Syringe 10 mls @ 5 mls/min IV Q12H [facility]; Protocol Stop: 10/11/23 05:59 Last Admin: 10/06/23 05:38 Dose: 5 mls/min Metronidazole (Flagyl) 500 mg in 100 mls @ 100 mls/hr IV Q8H [facility]; Protocol Stop: 10/11/23 03:59 Last Infusion: 10/06/23 04:33 Dose: Infused Lactobacillus Acidophilus (Advanced Probiotic 1250 Mg Capsule) 2 cap PO QAM HAN Stop: 11/02/23 08:59 Last Admin: 10/05/23 08:38 Dose: 2 cap Magnesium Oxide (Magnesium Oxide 400 Mg Tab) 400 mg PO BID HAN Stop: 11/04/23 16:24 Last Admin: 10/05/23 20:39 Dose: 400 mg Metoprolol Succinate (Metoprolol Succ 25mg Ext Rel Tab) 12.5 mg PO BID HAN Stop: 11/04/23 20:59 Last Admin: 10/05/23 20:37 Dose: 12.5 mg Multivitamins/Minerals (Cerovite Adv Formula Tab) 1 tab PO DAILY HAN Stop: 11/02/23 08:59 Last Admin: 10/05/23 08:38 Dose: 1 tab Ondansetron HCl (Ondansetron Inj 2 Mg/Ml 2 Ml Vial) 4 mg IV Q4H PRN PRN Reason: Nausea And Vomiting Stop: 11/01/23 15:41 Pantoprazole Sodium (Pantoprazole 40 Mg Tab) 40 mg PO DAILYBB [facility] Stop: 11/02/23 06:29 Last Admin: 10/06/23 05:38 Dose: 40 mg Polyethylene Glycol (Polyethylene (Miralax) 17 Gm Pack) 17 gm PO DAILY HAN Stop: 11/03/23 08:59 Last Admin: 10/05/23 08:37 Dose: 17 gm Raloxifene HCl (Raloxifene Hcl 60 Mg Tab) 60 mg PO QAM HAN Stop: 11/02/23 08:59 Last Admin: 10/05/23 08:38 Dose: 60 mg
[2023-10-06] MEDS: SODIUM CHLORIDE 0.9% 500 ML IV SCH (09:17)
--- NOTE | 2023-10-06 10:21 | Nephrology Consultation ---
Date of Consultation October 06, 2023 Assessment & Plan (1) JULIO (acute kidney injury): patient with some baseline CKD--fluctuating creat but recent baseline around 1.2. Current creat is much higher than baseline. Agree with some gentle hydration. Given her current Electrolytes--maybe better to use 1/2ns with 75 meq bicarb at 80 ml /hr. Also needs some PO kcl 40 meq today as serum will drop with Bicarb. No need to hydrate too fast as I dont think she is really dehydrated much--Urine is more consistent with ATN given blood ,protein, hyaline cast epithelial cells. Hold diuretics for now. when restarting would recommend Bumex and Aldactone only and no metolazone even for outpt. can have higher dose of Bumex if needed. managing 3 diuretics at once chris metolazone is lot more difficult. (2) Atrial fibrillation with rapid ventricular response: On eleiquis and BB now. cards note reviewed. (3) Right upper lobe pneumonia: On Abx. Improving and now on RA (4) Hypercalcemia: ca was 11.7 on admission but dropped to normal overnight without any definite Hypercalcemia management. Since then has been normal for 4 days now. Will follow only for now. Plan cardiology note reviewed as well as H and P, ED notes. Plan above discussed with primary team. History of Present Illness Reason for Consultation: JULIO and Hyponatremia Attending Physician: Daniel Doan MD History of Present Illness 83/F admitted 10/02/2023 for change in mental status weakness at the [facility]. She had findings consistent with acute right upper lobe pneumonia. Recent hospitalization with wound infection right leg. Patient treated with antibiotics since admission and clinical course notable for worsening renal insufficiency. Baseline creatinine 1.2 on admission was already around 2 on admission and after hovering around that range for few days it is now 2.32. Sodium is also dropping slightly and is down to 133. Potassium is slightly low and bicarb is slightly low . Started on NS earlier today. she did go into atrial fibrillation this admission and cardiology has seen the patient--on eliquis and BB now. At home on triple diuretics--Bumex 2 bid, Aldactone 100 daily and Also metolazone 3 x week ROS--hard to obtain given Some dementia/AMS Physical Exam Constitutional: + ill appearing and + obese; no acute di stress Eyes: PERRL, conjunctivae normal, anicteric sclerae Neck: trachea midline, no thyromegaly Respiratory: Auscultation: + crackles (Right chest) Cardiovascular: Rate/Rhythm: + tachycardic and + irregularly irregular Vessels: no JVD Extremities: no edema Gastrointestinal (Abdomen): normal bowel sounds, soft, nontender, no hepatosplenomegaly Allergies Allergy/AdvReac Type Severity Reaction Status Date / Time demeclocycline Allergy Unknown ON Verified 10/02/23 13:36 [facility] sulfamethoxazole Allergy Unknown ON Verified 10/02/23 13:36 [facility] trimethoprim Allergy Unknown ON Verified 10/02/23 13:36 [facility] ropinirole AdvReac Intermediate fluid Verified 10/02/23 13:36 retention pregabalin [From Lyrica] AdvReac Mild Unknown Verified 10/02/23 13:36 Home Medications Medication Instructions Recorded Confirmed Type aspirin 81 mg tablet,delayed 81 mg PO QAM 05/05/18 10/02/23 History release omega [id number]-fish oil 1,000 mg 1 cap PO TIDM 05/05/18 10/02/23 History (120 mg-180 mg) capsule (Fish Oil) raloxifene 60 mg tablet 60 mg PO QAM osteoporosis 05/05/18 10/02/23 History bumetanide 2 mg tablet 2 mg PO BID 12/30/19 10/02/23 History fenofibrate 160 mg tablet 160 mg PO DAILY 12/30/19 10/02/23 History metolazone 2.5 mg tablet 2.5 mg PO 3XWK edema 12/30/19 10/02/23 History omeprazole 40 mg capsule,delayed 40 mg PO DAILYBB 12/30/19 10/02/23 History release dextromethorphan-guaifenesin 10 10 ml PO Q4H PRN Cough 03/16/22 10/02/23 History mg-100 mg/5 mL oral liquid (Tussin DM) lorazepam 0.5 mg tablet 0.5 mg PO HS 03/16/22 10/02/23 History vit C 250 mg-vit E 90 mg-zinc 40 1 tab PO BID 03/16/22 10/02/23 History mg-copper 1 [id number] capsule (PreserVision AREDS-2) atropine 1 % eye drops 1 drp OPR Q8H PRN Excessive tearing 07/12/23 10/02/23 History escitalopram oxalate 10 mg tablet 10 mg PO QAM 07/12/23 10/02/23 History ferrous sulfate 142 mg (45 mg 142 mg PO QAM 07/12/23 10/02/23 History iron) tablet,extended release gabapentin 100 mg capsule 100 mg PO BID 07/12/23 10/02/23 History guaifenesin 600 mg tablet, 600 mg PO BID PRN Congestion 07/12/23 10/02/23 History extended release 12 hr (Mucus Relief ER) apixaban 2.5 mg tablet (Eliquis) 2.5 mg PO BID #60 tabs 07/18/23 10/02/23 Rx L.acidop,casei,lactis,rham-B.lact,karen 2 cap PO QAM 10/02/23 10/02/23 History 625 mg (10 billion cell) capsule (Advanced Probiotic) Protein Liquid 30 ml PO BID r/t wound support 10/02/23 10/02/23 History acetaminophen 325 mg tablet 650 mg PO Q6H PRN fever/pain 10/02/23 10/02/23 History (Tylenol) bisacodyl 10 mg rectal suppository 10 mg PA DAILY PRN Constipation 10/02/23 10/02/23 History (Dulcolax (bisacodyl)) cefepime 2 gram intravenous 2 g IV Q8H R ankle infection 10/02/23 10/02/23 History solution loperamide 2 mg capsule 2 mg PO Q3H PRN Diarrhea 10/02/23 10/02/23 History magnesium hydroxide 400 mg/5 mL 2,400 mg PO DAILY PRN Constipation 10/02/23 10/02/23 History oral suspension (Milk of Magnesia) oxymetazoline 0.05 % nasal spray See Rx Instructions .Route 10/02/23 10/02/23 History .COMPLEX PRN nose bleed potassium chloride 20 mEq See Rx Instructions .Route .COMPLEX 10/02/23 10/02/23 History tablet,extended release sodium phosphates 19 gram-7 118 ml PA DAILY PRN Constipation 10/02/23 10/02/23 History gram/118 mL enema (Enema) spironolactone 100 mg tablet 100 mg PO QAM 10/02/23 10/02/23 History Patient History Medical History Fall Cough Depression Cellulitis Acute hip pain Nocturnal hypoxia Right-sided congestive heart failure Sacral insufficiency fracture Cor pulmonale (chronic) Lumbar stenosis with neurogenic claudication Chronic GERD Right heart failure Dependence on nocturnal oxygen therapy RADHA (obstructive sleep apnea) Dyslipidemia Morbid obesity with BMI of 40.0-44.9, adult Mitral valve prolapse Osteoporosis Chronic acquired lymphedema HTN (hypertension) Chronic back pain Surgical History Hx of cholecystectomy Status post lumbar spine surgery for decompression of spinal cord 2017 Dr. Wan Status post kyphoplasty L3, L4, L5 2018 Dr. Wan Status post tonsillectomy Status post cataract surgery Status post appendectomy Family History Father Family history of colon cancer Brother Family history of prostate cancer Brother Family history of coronary artery disease Sister Family history of coronary artery disease Brother Family history of diabetes mellitus Social History Smoking Status: Never smoker Second Hand Exposure: No; Do You Dip or Chew Tobacco: No; Hx Alcohol Use: No Hx Substance Use: No Preferred Language: Slovak Communication Ability: Effective Communication Ability Comment: confused Implementation Project Coordinator Required: No Beliefs That Will Affect Care: None marital status: Single Current Living Situation: Penitentiary Current Living Situation Comment: [facility] Other Information That Helps Us Care for You: No Feels Safe at Home: Yes Assistive Devices: Walker and Wheelchair Results & Data Vital Signs (Past 12 Hours) Vital Signs Temp Pulse Resp BP Pulse Ox O2 Del Method 10/06/23 07:53 36.5 C 79 18 118/74 95 Room Air 10/06/23 04:42 36.3 C L 75 18 118/74 97 Room Air 10/05/23 23:11 36.9 C 86 20 141/82 H 94 Room Air Laboratory Results reviewed Diagnostic Findings reviewed
--- NOTE | 2023-10-06 10:30 | Cardiology Progress Note ---
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 Recent hospitalization with lower leg wound infection and rehospitalization this admission with acute mental status changes, findings of right upper lobe pneumonia. Clinical course with since hospitalization slowly worsening renal insufficiency Patient today lapsed into atrial fibrillation with rapid response Mild lightheadedness and dizziness weakness no chest pain Patient had been anticoagulated with apixaban receiving dose this morning 1. Atrial fibrillation with rapid response: IV metoprolol to be administered for rate control. Fluid bolus to allow given marginal blood pressure. Patient currently anticoagulated with apixaban but on hold due to worsening renal insufficiency after dose this morning. Will give dose of oral metoprolol 25 mg p.o. now follow heart rates and blood pressure with recommended fluid resuscitation May consider IV amiodarone if intolerant to or beta-gary treatment ineffective given diastolic dysfunction Echocardiogram demonstrates preserved LV systolic function mild mitral insufficiency and moderate left atrial enlargement, aortic sclerosis Will need to discern plans for anticoagulation with repeat renal function ordered for this afternoon. Patient did receive dose of apixaban this morning. If renal insufficiency continues to worsen will initiate IV heparin this evening, no bolus hold for now 10/05/2023 1. Paroxysmal atrial fibrillation: Maintaining sinus rhythm. Will change metoprolol to tartrate to metoprolol succinate 12.5 mg twice per day. Patient anticoagulated with reduced dose apixaban. 2. Right upper lobe pneumonia 3. Dehydration/anorexia. Encouraged increased p.o. intake. Did respond to fluid resuscitation yesterday with IV fluid. Continue to hold diuretics 4. Chronic diastolic heart failure currently compensated 5. Acute on chronic renal insufficiency 10/06/2023 1. Paroxysmal atrial fibrillation: No recurrence. Medications adjustments as above metoprolol succinate 12.5 mg twice per day. Continue apixaban but will need to follow renal function. 2. Chronic diastolic heart failure without exacerbation. Still appears prerenal diuretics to remain on hold Admission and Anticipated Discharge Date Admission Date: October 02, 2023 Subjective Patient was seen and examined, chart, medications, telemetry reviewed Patient looks brighter today more alert on discussions. Still "weak" No arrhythmias on telemetry Notes limited appetite for both fluids and food Review of Systems Review of Systems: All systems reviewed & are unremarkable except as noted in Subjective Physical Exam Constitutional: + obese; no acute distress Eyes: PERRL, conjunctivae normal, anicteric sclerae ENMT: external ear and nose normal, oropharynx normal Neck: trachea midline, no thyromegaly Respiratory: Auscultation: + diminished lung sounds Cardiovascular: Rate/Rhythm: regular rate, regular rhythm, + tachycardic and + irregularly irregular Vessels: no JVD Extremities: no edema Gastrointestinal (Abdomen): normal bowel sounds, soft, nontender, no hepatosplenomegaly Musculoskeletal: no cyanosis or clubbing, extremities motor strength 5/5 Results & Data Vital Signs (Past 12 Hours) Vital Signs Temp Pulse Resp BP Pulse Ox O2 Del Method 10/06/23 07:53 36.5 C 79 18 118/74 95 Room Air 10/06/23 04:42 36.3 C L 75 18 118/74 97 Room Air 10/05/23 23:11 36.9 C 86 20 141/82 H 94 Room Air Laboratory Results Laboratory Results - last 24 hr 10/06/23 10/06/23 01:30 04:38 WBC 3.81 L RBC 3.56 L Hgb 10.3 L Hct 32.1 L MCV 90.2 MCH 28.9 MCHC 32.1 RDW Std Deviation 54.4 H RDW Coeff of Vicki 16.5 H Plt Count 322 MPV 11.1 Immature Gran % (Auto) 3.4 Neut % (Auto) 66.2 Lymph % (Auto) 15.2 [place] % (Auto) 15.2 Eos % (Auto) 0.0 Baso % (Auto) 0.0 Neut # (Auto) 2.52 Lymph # (Auto) 0.58 L [place] # (Auto) 0.58 Eos # (Auto) 0.00 Baso # (Auto) 0.00 Immature Gran # (Auto) 0.13 Absolute Nucleated RBC 0.02 Nucleated RBC % (auto) 0.5 Sodium 133 L Potassium 3.4 L Chloride 111 H Carbon Dioxide 14 L Anion Gap 8 BUN 55 H Creatinine 2.32 H Est Cr Clr Drug Dosing 21.0 Est GFR ( Amer) 21.7 Est GFR (Non-Af Amer) 18.7 BUN/Creatinine Ratio 23.7 H Glucose 105 H Calcium 9.0 Phosphorus 4.2 Magnesium 1.7 Urine Color Yellow Urine Appearance Turbid A Urine pH 5.5 Ur Specific [place] 1.018 Urine Protein 2+ H Urine Glucose (UA) Negative Urine Ketones Negative Urine Blood 2+ H Urine Nitrite Negative Urine Bilirubin Negative Urine Urobilinogen Negative Ur Leukocyte Esterase 3+ H Urine WBC (Auto) >30 H Urine RBC (Auto) 10-30 H U Hyaline Cast (Auto) 5-10 H U Epithel Cells (Auto) >30 H Urine Bacteria (Auto) Negative Amorphous Sediment Present A Granular Casts 1-5 H Urine Yeast Budding A
[2023-10-06] MEDS ORDERED: STAT IV/IM STA (10:38)
[2023-10-06] MEDS: POTASSIUM CHLORIDE CRTAB 20 MEQ TABCR PO STA ×2 (11:32→14:24)
[2023-10-06] MEDS: SODIUM BICARBONATE 8.4% 75 MEQ in SODIUM CHLORIDE 0.45 % 1,000 ML IV SCH (11:32)
[2023-10-06] MEDS: LOPERAMIDE HCL 2 MG CAP PO STA (17:58)
[2023-10-06 20:03] LABS: Cdiff Toxin B Gene (2yr or >) Positive Cdiff Gene (Neg)
[2023-10-06 20:04] LABS: Cdiff Antigen Positive; Cdiff Toxin A+B Negative Cdiff Toxin (Negative)
[2023-10-07 06:17] LABS: Hematocrit (blood only) 30.1 % (37.0-47.0); Hemoglobin 9.6 g/dl (12.0-16.0); Mean Corpuscular Hemoglobin 28.7 pg (25.0-34.0); Mean Corpuscular Hgb Conc 31.9 g/dL (32.0-36.0); Mean Corpuscular Volume 90.1 fL (80.0-100.0); Mean Platelet Volume 11.5 fL (9.4-12.4); Platelet Count 285 K/uL (130-400); RDW Coefficient of Variation 15.9 % (11.5-14.5); RDW Standard Deviation 51.9 fL (36.4-46.3); Red Blood Count 3.34 M/uL (4.20-5.40); White Blood Count 3.31 K/ul (4.8-10.8)
[2023-10-07 06:37] LABS: BUN Creatinine Ratio 22.6 (10-20); Calcium 8.8 mg/dl (8.6-10.3); Creatinine Clr Calc Pharmacy 20.3 ml/min; Est GFR (Non-African American) 17.2 ml/min; Magnesium 1.8 mg/dl (1.7-2.4); Potassium 4.2 mmol/L (3.5-5.1)
--- NOTE | 2023-10-07 07:49 | Hospitalist Progress Note ---
Date of Service October 07, 2023 Assessment & Plan (1) Right upper lobe pneumonia: (2) Hypercalcemia: (3) Acute dehydration: (4) AMS (altered mental status): (5) Status post ORIF of fracture of ankle: (6) Right-sided congestive heart failure: (7) Cor pulmonale (chronic): (8) HTN (hypertension): (9) Mitral valve prolapse: (10) RADHA (obstructive sleep apnea): (11) Dyslipidemia: (12) Morbid obesity with BMI of 40.0-44.9, adult: (13) Chronic GERD: Plan Pt is an 83yoF with PMHx significant for R tib/fib fracture s/p ORIF with osteomyelitis on IV cefepime growing out proteus and pseudomonas in Jul 2023, alopecia areata, amaurosis fugax, RLS, right rotator cuff tendinopathy, prediabetes, CKDIII, hypertension, chronic right CHF, mitral valve prolapse, HLD, chronic lymphedema, RADHA, sacral insufficiency, L4 compression fracture with severe spinal stenosis, hx of COVID in Jun 2023, and osteoporosis presenting with weakness and altered mental status. RUL PNA Pt admitted with weakness and AMS No increased oxygen requirement No sepsis on admission- wbc wnl, no tachypnea or fever. Tachycardic. Lactate normal. Chest XRAY was suggestive of RUL pneumonia CT chest confirming pneumonia, reactive lymph nodes and pulm HTN MRSA nares negative Respiratory viral panel negative Blood Cx x2 negative sputum culture ordered but not not collected Legionella negative Continue with Cefepime and azithromycin currently, Flagyl added for possible asp iration component. Consider HAP with recent discharge about a month prior. Mucinex, duonebs QID and Q2H prn, tessalon pearls, flutter, incentive spirometry Pt currently on RA Continue to monitor, provide respiratory support as needed CT chest obtained 10/03 - New interstitial and airspace opacities compatible with pneumonia. Reactive lymph nodes seen. Pulmonary hypertension is noted. Discussed w/ pulmonary med., appreciate their input Acute Encephalopathy Likely in setting of pneumonia infection above Head CT unremarkable UA without suggestion of infection Delirium precautions. Frequent reorientation, avoid sedating medication Continue to monitor Mental status improving Atrial Fibrillation Pt with new onset atrial fibrillation episode on 10/04 Hypotensive at the time 70s/40s, pt reporting dizziness however orienting, talking Fluid bolus, IV Lopressor 5mg Pt on Eliquis 2.5mg BID for DVT prophylaxis post orthopedic surgery in 2022 Received dose in AM, IV heparin ordered to begin in the evening urgent consult to cardiology- appreciate recs -no cardioversion at this time -po metoprolol tartrate initiation, 25mg BID -> switch to metoprolol succinate 12.5 mg bid pt converted to sinus rhythm later in the day per cardiology, pt can resume Eliquis- lower dose 2.5 bid (d/t renal function) Continue to monitor on telemetry Received fluid, hold diuretics for now JULIO Creatinine baseline from end of July 2023 was ~1.00 Cr elevated at 2.02 on admission Holding Bumex, spironolactone and metolazone- resume as soon as able for CHF noted below Renally reduce medications, avoid nephrotoxins/contrast Cautious fluid hydration as needed Continue to monitor Nephrology consulted - appreciate their input, gentle IV bicarb , replace K, hold diuretics, should stop metolazone on DC Elevated Troponin hs trop elevated and downtrended 16.9 to 15.5 EKG with sinus tach and PACs Likely demand in setting of above Doubt ACS Cardiomegaly Bilateral Atrial Enlargement Pulmonary artery hypertension Diastolic CHF Chronic lower extremity edema Cardiomegaly and atrial enlargement noted on CT chest imaging Last echo 02/2022- noted normal atrial size, EF 50-55%, mild LVH Repeat echo-EF 50-55%, Grade I diastolic dysfunction Currently holding home spironolactone, metalozone and Bumex as above due to JULIO Daily weights, I and O's Resume meds as soon as able gentle hydration as needed for JULIO noted above Dysphagia Difficulty swallowing Speech consult- appreciate recs Hypercalcemia Calcium 11.7, ionized 1.51 calcium level then improved Hydration as above , monitor, nephrology also on board Elevated INR INR elevated to 1.3 Pt on anticoagulation in the form of Eliquis for DVT prophylaxis Continue as noted below Hyperkalemia POC K+ noted to be 6.1 Currently wnl Continue to monitor Chronic Anemia Hgb of 10.2, down from baseline Pending iron, b12 and folate levels Continue home iron supplementation Continue to monitor Constipation Noted on CT abd/pelvis- moderate stool burden noted Started on bowel regimen of scheduled docusate 100mg BID and miralx daily. PRN glycerin suppository De-escalate regimen now as pt having bowel movements Noted pt on iron supplementation which can be constipating. S/p Right ORIF Hx of pseudomonas/proteus Scheduled to finish IV cefepime Q8H on 10/03 in evening per ID/ortho recs Will continue Cefepime for pneumonia above Continue Eliquis 2.5 mg daily for DVT ppx Also on aspirin 81mg daily small wound noted at R ankle - wound cultx obtained, wound care and discussed w/ orthopedics Dr. Garcia - follow up with wounda [facility] as outpt and follow w/ orthopedics as outpt HLD: Chronic, continue fenofibrate Depression: Chronic, stable, cont gabapentin and Lexapro Prediabetes: -a1c 5.6 on 08/16/23 GERD: Chronic, cont ppi, add H2 gary with improvement to dyspepsia, continue Osteoporosis On raloxifene DVT ppx: Eliquis FEN/GI: HH/soft bite sized CODE: DNR Dispo: From [facility] Admission and Anticipated Discharge Date Admission Date: October 02, 2023 Subjective Pt seen in follow up of pna, then developed afib w/ rvr - > converted to sinus Pt confused on admission, mental status seems to be improving Pt is sitting up in bed in NAD Denies any chest pain, shortness of breath, palpitations Nephrology consulted for julio and metab. acidosis - cont. to hold diuretics, started iv bicarb Ct chest findings discussed w/ pulm. Pt has hx of ankle surg. and osteo - still has small wound at R ankle - ordered wound cultx, wound care and discussed w/ orthopedic surgery Saw pt today with wound care nurse at the bedside. Review of Systems Review of Systems: All systems reviewed & are unremarkable except as noted in Subjective Physical Exam Physical Exam: General: WD/WN in NAD HEENT: NC/AT, R pupil > L (chronic per niece) CV: rrr Resp: + mild rhonchi, no increased effort of breathing. on RA Abdomen: Soft, nontender, + bowel sounds Neuro: awake but not able to answer all questions appropriately (per niece mental status improved), speech fluent, generally weak Extremities: edema in lower extremities bilaterally. Skin: No noted rashes or bruises Results & Data Results & Data Vital Signs (Past 12 Hours) Vital Signs Temp Pulse Pulse Resp BP Pulse Ox O2 Del Method 02/16/24 05:58 67 10/07/23 02:59 36.4 C L 71 18 115/76 99 Room Air 10/06/23 23:09 36.5 C 63 18 107/59 L 99 Nasal Cannula 10/06/23 22:13 62 10/06/23 20:00 Room Air O2 Flow Rate 10/07/23 05:58 10/07/23 02:59 10/06/23 23:09 2 10/06/23 22:13 10/06/23 20:00 Laboratory Results 10/07/23 10/06/23 Range/Units 04:53 Unknown WBC 3.31 L (4.8-10.8) K/ul RBC 3.34 L (4.20-5.40) M/uL Hgb 9.6 L (12.0-16.0) g/dl Hct 30.1 L (37.0-47.0) % MCV 90.1 (80.0-100.0) fL MCH 28.7 (25.0-34.0) pg MCHC 31.9 L (32.0-36.0) g/dL RDW Std Deviation 51.9 H (36.4-46.3) fL RDW Coeff of Vicki 15.9 H (11.5-14.5) % Plt Count 285 (130-400) K/uL MPV 11.5 (9.4-12.4) fL Sodium 135 L (136-145) mmol/L Potassium 4.2 D (3.5-5.1) mmol/L Chloride 112 H (98-107) mmol/L Carbon Dioxide 15 L (21-32) mmol/L Anion Gap 8 (3-11) BUN 56 H (6-23) mg/dl Creatinine 2.48 H (0.6-1.2) mg/dl Est Cr Clr Drug Dosing 20.3 ml/min Est GFR ( Amer) 20.0 ml/min Est GFR (Non-Af Amer) 17.2 ml/min BUN/Creatinine Ratio 22.6 H (10-20) Glucose 91 (70-99(Fasting)) mg/dl Calcium 8.8 (8.6-10.3) mg/dl Phosphorus 4.0 (2.5-4.9) mg/dl Magnesium 1.8 (1.7-2.4) mg/dl Stl C. diff Tox B Gene Positive Cdiff Gene H (Neg) Stl C.difficile Tox A&B Negative Cdiff Toxin (Negative) Medications Administered Current Inpatient Medications Acetaminophen (Acetaminophen 325 Mg Tab) 650 mg PO Q4H PRN PRN Reason: Moderate Pain (Scale 4, 5, 6) Stop: 11/01/23 15:41 Last Admin: 10/07/23 05:48 Dose: 650 mg Apixaban (Apixaban 2.5 Mg Tab) 2.5 mg PO BID [facility] Stop: 11/03/23 20:59 Last Admin: 10/06/23 20:54 Dose: 2.5 mg Aspirin (Aspirin 81 Mg Ectab) 81 mg PO QAM [facility] Stop: 11/02/23 08:59 Last Admin: 10/06/23 08:30 Dose: 81 mg Benzonatate (Benzonatate 100 Mg Capsule) 100 mg PO TID [facility] Stop: 11/01/23 20:59 Last Admin: 10/06/23 20:51 Dose: 100 mg Docusate Sodium (Docusate Sodium 100 Mg Cap) 100 mg PO BID [facility] Stop: 11/03/23 08:59 Last Admin: 10/06/23 08:32 Dose: Not Given Escitalopram Oxalate (Escitalopram Oxalate 10 Mg Tab) 10 mg PO QAM [facility] Stop: 11/02/23 08:59 Last Admin: 10/06/23 08:30 Dose: 10 mg Ferrous Sulfate (Ferrous Sulfate 325 Mg Tab) [facility] [place] [place]: 11/02/23 08:59 Last Admin: 10/06/23 08:30 Dose: 325 mg Gabapentin (Gabapentin 100 Mg Cap) 100 mg PO BID [facility] Stop: 11/01/23 20:59 Last Admin: 10/06/23 20:53 Dose: 100 mg Glycerin (Glycerin Adult 12 Supp/Box Supp) 1 supp UT DAILY PRN PRN Reason: Constipation Stop: 11/03/23 03:54 Guaifenesin (Guaifenesin 600 Mg Tabcr) 1,200 mg PO Q12 [facility] Stop: 11/01/23 20:59 Last Admin: 10/06/23 20:54 Dose: 1,200 mg Guaifenesin/Dextromethorphan (Guaifenesin/Dextrom Syrup 200mg/20mg 10ml Udc) 10 ml PO Q4H PRN PRN Reason: Cough Stop: 11/01/23 15:58 Azithromycin 250 mg/ Dextrose 252.5 mls @ 125 mls/hr IV Q24H [facility] Stop: 10/09/23 12:59 Last Infusion: 10/06/23 16:27 Dose: Infused Cefepime HCl 1,000 mg/ Syringe 10 mls @ 5 mls/min IV Q12H [facility]; Protocol Stop: 10/11/23 05:59 Last Admin: 10/07/23 05:39 Dose: 5 mls/min Metronidazole (Flagyl) 500 mg in 100 mls @ 100 mls/hr IV Q8H [facility]; Protocol Stop: 10/11/23 03:59 Last Infusion: 10/07/23 05:51 Dose: Infused Sodium Bicarbonate 75 meq/ (Sodium Chloride) 1,075 mls @ 80 mls/hr IV .[id number] [facility] Stop: 11/05/23 10:44 Last Admin: 10/07/23 01:43 Dose: 80 mls/hr Lactobacillus Acidophilus (Advanced Probiotic 1250 Mg Capsule) 2 cap PO QAM [facility] Stop: 11/02/23 08:59 Last Admin: 10/06/23 08:29 Dose: 2 cap Magnesium Oxide (Magnesium Oxide 400 Mg Tab) 400 mg PO BID [facility] Stop: 11/04/23 16:24 Last Admin: 10/06/23 20:53 Dose: 400 mg Metoprolol Succinate (Metoprolol Succ 25mg Ext Rel Tab) 12.5 mg PO BID [facility] Stop: 11/04/23 20:59 Last Admin: 10/06/23 20:55 Dose: Not Given Multivitamins/Minerals (Cerovite Adv Formula Tab) 1 tab PO DAILY [facility] Stop: 11/02/23 08:59 Last Admin: 10/06/23 08:30 Dose: 1 tab Ondansetron HCl (Ondansetron Inj 2 Mg/Ml 2 Ml Vial) 4 mg IV Q4H PRN PRN Reason: Nausea And Vomiting Stop: 11/01/23 15:41 Pantoprazole Sodium (Pantop[facility]ole 40 Mg Tab) [facility]: 11/02/23 06:29 Last Admin: 10/07/23 05:39 Dose: 40 mg Polyethylene Glycol (Polyethylene (Miralax) 17 Gm Pack) 17 gm PO DAILY [facility] Stop: 11/03/23 08:59 Last Admin: 10/06/23 08:30 Dose: Not Given Raloxifene HCl (Raloxifene Hcl 60 Mg Tab) 60 mg PO [facility] Stop: 11/02/23 08:59 Last Admin: 10/06/23 08:30 Dose: 60 mg
--- NOTE | 2023-10-07 09:28 | Nephrology Progress Note ---
Date of Service October 07, 2023 Assessment & Plan Admission and Anticipated Discharge Date Admission Date: October 02, 2023 Subjective Assessment & Plan (1) JULIO (acute kidney injury): patient with some baseline CKD--fluctuating creat but recent baseline around 1.2. Current creat is much higher than baseline and still rising. Bicarb low. No need to hydrate too fast as I dont think she is really dehydrated much--Urine is more consistent with ATN given blood ,protein, hyaline cast epithelial cells. Creat still rising but only slightly. No dialysis needed Hold diuretics for now. when restarting would recommend Bumex and Aldactone only and no metolazone even for outpt. can have higher dose of Bumex if needed. managing 3 diuretics at once chris metolazone is lot more difficult. Change to plain d5w with Sodium bicarb at 75 ml/hr--stop after 1 liter. kcl 20 meq bid for anticipated low K (2) Atrial fibrillation with rapid ventricular response: On eleiquis and BB now. cards note reviewed. (3) Right upper lobe pneumonia: On Abx. Improving and now on RA (4) Hypercalcemia: ca was 11.7 on admission but dropped to normal overnight without any definite Hypercalcemia management. Since then has been normal for 5 days now. Will follow only for now. S---feels same. No new issues. making urine. BP somewhat lowish. Physical Exam Constitutional: + ill appearing and + obese; no acute di stress Eyes: PERRL, conjunctivae normal, anicteric sclerae Neck: trachea midline, no thyromegaly Respiratory: Auscultation: + crackles (Right chest) Cardiovascular: Rate/Rhythm: + tachycardic and + irregularly irregular Vessels: no JVD Extremities: no edema Gastrointestinal (Abdomen): normal bowel sounds, soft, nontender, no hepato splenomegaly Results & Data Vital Signs (Past 12 Hours) Vital Signs Temp Pulse Pulse Resp BP BP Pulse Ox 10/07/23 08:00 35.8 C L 77 16 101/67 96 10/07/23 07:50 10/07/23 05:58 67 10/07/23 02:59 36.4 C L 71 18 115/76 99 10/06/23 23:09 36.5 C 63 18 107/59 L 99 10/06/23 22:13 62 O2 Del Method O2 Flow Rate 10/07/23 08:00 Nasal Cannula 3 10/07/23 07:50 Nasal Cannula 2 10/07/23 05:58 10/07/23 02:59 Room Air 10/06/23 23:09 Nasal Cannula 2 10/06/23 22:13
[2023-10-07] MEDS ORDERED: STAT IV/IM STA (09:29)
[2023-10-07] MEDS: POTASSIUM CHLORIDE CRTAB 20 MEQ TABCR PO SCH (09:58)
[2023-10-07] MEDS: SODIUM BICARBONATE 8.4% 150 MEQ in DEXTROSE 5% 1,000 ML IV SCH (09:59)
--- NOTE | 2023-10-07 16:42 | XRay Report ---
SINGLE VIEW CHEST CLINICAL HISTORY: Follow-up pneumonia FINDINGS: An AP, portable, upright chest radiograph is compared to study dated 10/02/2023 and correlat ed with chest CT dated 10/03/2023. The examination is degraded by portable technique and patient rotat ion. The heart is enlarged noting atherosclerotic calcification of the thoracic aorta. The pulmonary vasculature is noncongested. Chronic interstitial thickening is similar to previous. Airspace consol idation in the right upper lung is unchanged to modestly increased as compared to 10/02/2023. There is chronic elevation of the right hemidiaphragm. Scarring/atelectasis is noted at the left lung base. N o large pleural effusion or pneumothorax is identified. The skeletal structures are osteopenic. The b sandra thorax is grossly intact. IMPRESSION: 1. Airspace consolidation in the right mid upper lung is unchanged to modestly increased from 10/02/19 24. The appearance favors pneumonia/aspiration pneumonitis. Clinical correlation will be required and radiographic follow-up to resolution is recommended. 2. Cardiomegaly without radiographic evidence of congestive failure. ACT 112: Negative or not required by law. Electronically signed by: Felipe Perera M.D. 10/07/2023 4:40 PM
[2023-10-07] MEDS: metroNIDAZOLE 500 MG TAB PO SCH (20:56)
--- NOTE | 2023-10-08 08:16 | Hospitalist Progress Note ---
Date of Service October 08, 2023 Assessment & Plan (1) Right upper lobe pneumonia: (2) Hypercalcemia: (3) Acute dehydration: (4) AMS (altered mental status): (5) Status post ORIF of fracture of ankle: (6) Right-sided congestive heart failure: (7) Cor pulmonale (chronic): (8) HTN (hypertension): (9) Mitral valve prolapse: (10) RADHA (obstructive sleep apnea): (11) Dyslipidemia: (12) Morbid obesity with BMI of 40.0-44.9, adult: (13) Chronic GERD: Plan Pt is an 83yoF with PMHx significant for R tib/fib fracture s/p ORIF with osteomyelitis on IV cefepime growing out proteus and pseudomonas in Jul 2023, alopecia areata, amaurosis fugax, RLS, right rotator cuff tendinopathy, prediabetes, CKDIII, hypertension, chronic right CHF, mitral valve prolapse, HLD, chronic lymphedema, RADHA, sacral insufficiency, L4 compression fracture with severe spinal stenosis, hx of COVID in Jun 2023, and osteoporosis presenting with weakness and altered mental status. RUL PNA Pt admitted with weakness and AMS No increased oxygen requirement No sepsis on admission- wbc wnl, no tachypnea or fever. Tachycardic. Lactate normal. Chest XRAY was suggestive of RUL pneumonia CT chest confirming pneumonia, reactive lymph nodes and pulm HTN MRSA nares negative Respiratory viral panel negative Blood Cx x2 negative sputum culture ordered but not not collected Legionella negative Continue with Cefepime and azithromycin currently, Flagyl added for possible asp iration component. Consider HAP with recent discharge about a month prior. Mucinex, duonebs QID and Q2H prn, tessalon pearls, flutter, incentive spirometry Pt currently on RA Continue to monitor, provide respiratory support as needed CT chest obtained 10/03 - New interstitial and airspace opacities compatible with pneumonia. Reactive lymph nodes seen. Pulmonary hypertension is noted. Discussed w/ pulmonary med., appreciate their input Acute Encephalopathy Likely in setting of pneumonia infection above Head CT unremarkable UA without suggestion of infection Delirium precautions. Frequent reorientation, avoid sedating medication Continue to monitor Mental status improving Atrial Fibrillation Pt with new onset atrial fibrillation episode on 10/04 Hypotensive at the time 70s/40s, pt reporting dizziness however orienting, talking Fluid bolus, IV Lopressor 5mg Pt on Eliquis 2.5mg BID for DVT prophylaxis post orthopedic surgery in 2022 Received dose in AM, IV heparin ordered to begin in the evening urgent consult to cardiology- appreciate recs -no cardioversion at this time -po metoprolol tartrate initiation, 25mg BID -> switched to metoprolol succinate 12.5 mg bid pt converted to sinus rhythm later in the day per cardiology, resumed Eliquis- lower dose 2.5 bid (d/t renal function) Continue to monitor on telemetry Received fluid, hold diuretics for now JULIO Creatinine baseline from end of July 2023 was ~1.00 Cr elevated at 2.02 on admission Holding Bumex, spironolactone and metolazone- resume as soon as able for CHF noted below Renally reduce medications, avoid nephrotoxins/contrast Cautious fluid hydration as needed Continue to monitor Nephrology consulted - appreciate their input, gentle IV bicarb , replace K, hold diuretics, should stop metolazone on DC Elevated Troponin hs trop elevated and downtrended 16.9 to 15.5 EKG with sinus tach and PACs Likely demand in setting of above Doubt ACS Cardiomegaly Bilateral Atrial Enlargement Pulmonary artery hypertension Diastolic CHF Chronic lower extremity edema Cardiomegaly and atrial enlargement noted on CT chest imaging Last echo 02/2022- noted normal atrial size, EF 50-55%, mild LVH Repeat echo-EF 50-55%, Grade I diastolic dysfunction Currently holding home spironolactone, metalozone and Bumex as above due to JULIO Daily weights, I and O's Resume meds as soon as able gentle hydration as needed for JULIO noted above Dysphagia Difficulty swallowing Speech consult- appreciate recs Hypercalcemia Calcium 11.7, ionized 1.51 calcium level then improved Hydration as above , monitor, nephrology also on board Elevated INR INR elevated to 1.3 Pt on anticoagulation in the form of Eliquis for DVT prophylaxis Continue as noted below Hyperkalemia POC K+ noted to be 6.1 Currently wnl Continue to monitor Chronic Anemia Hgb of 10.2, down from baseline Pending iron, b12 and folate levels Continue home iron supplementation Continue to monitor Constipation Noted on CT abd/pelvis- moderate stool burden noted Started on bowel regimen of scheduled docusate 100mg BID and miralax daily. PRN glycerin suppository De-escalate regimen now as pt having bowel movements Noted pt on iron supplementation which can be constipating. S/p Right ORIF Hx of pseudomonas/proteus Scheduled to finish IV cefepime Q8H on 10/03 in evening per ID/ortho recs Will continue Cefepime for pneumonia above Continue Eliquis 2.5 mg daily for DVT ppx Also on aspirin 81mg daily small wound noted at R ankle - wound cultx obtained, wound care and discussed w/ orthopedics Dr. Garcia - follow up with wound care center as outpt and follow w/ orthopedics as outpt HLD: Chronic, continue fenofibrate Depression: Chronic, stable, cont gabapentin and Lexapro Prediabetes: -a1c 5.6 on 08/16/23 GERD: Chronic, cont ppi, add H2 gary with improvement to dyspepsia, continue Osteoporosis On raloxifene DVT ppx: Eliquis FEN/GI: HH/soft bite sized CODE: DNR Dispo: From [facility] Admission and Anticipated Discharge Date Admission Date: October 02, 2023 Subjective Pt seen in follow up of pna, then developed afib w/ rvr - > converted to sinus Pt confused on admission, mental status seems to be improving Pt is sitting up in bed in NAD Denies any chest pain, shortness of breath, palpitations Nephrology consulted for julio and metab. acidosis - cont. to hold diuretics, started iv bicarb Ct chest findings discussed w/ pulm. Pt has hx of ankle surg. and osteo - still has small wound at R ankle - wound cultx obtained, wound care and discussed w/ orthopedic surgery urine cultx posit. for noel glabrata Review of Systems Review of Systems: All systems reviewed & are unremarkable except as noted in Subjective Physical Exam Physical Exam: General: WD/WN in NAD HEENT: NC/AT, R pupil > L (chronic per niece) CV: rrr Resp: + rhonchi, no increased effort of breathing. on RA Abdomen: Soft, nontender, + bowel sounds Neuro: awake but not able to answer all questions appropriately (per niece mental status improved), speech fluent, generally weak Extremities: edema in lower extremities bilaterally. Skin: No noted rashes or bruises Results & Data Results & Data Vital Signs (Past 12 Hours) Vital Signs Temp Pulse Pulse Resp BP BP Pulse Ox 10/08/23 07:28 36.5 C 62 18 108/66 93 10/08/23 06:07 68 10/08/23 03:20 36.5 C 67 18 110/69 98 10/08/23 00:10 60 10/07/23 23:15 36.4 C L 66 18 117/79 97 10/07/23 22:33 O2 Del Method O2 Flow Rate 10/08/23 07:28 Room Air 10/08/23 06:07 10/08/23 03:20 Nasal Cannula 2 10/08/23 00:10 10/07/23 23:15 Nasal Cannula 2 10/07/23 22:33 Nasal Cannula 2 Laboratory Results 10/08/23 10/06/23 Range/Units 09:19 01:30 WBC 4.67 L (4.8-10.8) K/ul RBC 3.42 L (4.20-5.40) M/uL Hgb 9.8 L (12.0-16.0) g/dl Hct 30.7 L (37.0-47.0) % MCV 89.8 (80.0-100.0) fL MCH 28.7 (25.0-34.0) pg MCHC 31.9 L (32.0-36.0) g/dL RDW Std Deviation 54.4 H (36.4-46.3) fL RDW Coeff of Vicki 16.7 H (11.5-14.5) % Plt Count 300 (130-400) K/uL MPV 11.5 (9.4-12.4) fL Sodium 133 L (136-145) mmol/L Potassium 4.1 (3.5-5.1) mmol/L Chloride 108 H (98-107) mmol/L Carbon Dioxide 16 L (21-32) mmol/L Anion Gap 9 (3-11) BUN 51 H (6-23) mg/dl Creatinine 2.47 H (0.6-1.2) mg/dl Est Cr Clr Drug Dosing 20.5 ml/min Est GFR ( Amer) 20.1 ml/min Est GFR (Non-Af Amer) 17.3 ml/min BUN/Creatinine Ratio 20.6 H (10-20) Glucose 135 H (70-99(Fasting)) mg/dl Calcium 8.8 (8.6-10.3) mg/dl Phosphorus 3.5 (2.5-4.9) mg/dl Magnesium 1.8 (1.7-2.4) mg/dl Misc Micro Test Pending Medications Administered Current Inpatient Medications Acetaminophen (Acetaminophen 325 Mg Tab) 650 mg PO Q4H PRN PRN Reason: Moderate Pain (Scale 4, 5, 6) Stop: 11/01/23 15:41 Last Admin: 10/08/23 05:31 Dose: 650 mg Apixaban (Apixaban 2.5 Mg Tab) 2.5 mg PO BID [facility] Stop: 11/03/23 20:59 Last Admin: 10/07/23 20:48 Dose: 2.5 mg Aspirin (Aspirin 81 Mg Ectab) [facility] [place] [place]: 11/02/23 08:59 Last Admin: 10/07/23 08:50 Dose: 81 mg Azithromycin (Azithromycin 250 Mg Tab) 250 mg PO Q24H [facility]; Protocol Stop: 10/09/23 11:59 Benzonatate (Benzonatate 100 Mg Capsule) 100 mg PO TID [facility] Stop: 11/01/23 20:59 Last Admin: 10/07/23 20:54 Dose: 100 mg Docusate Sodium (Docusate Sodium 100 Mg Cap) 100 mg PO BID [facility] Stop: 11/03/23 08:59 Last Admin: 10/06/23 08:32 Dose: Not Given Escitalopram Oxalate (Escitalopram Oxalate 10 Mg Tab) 10 [facility] [place]: 11/02/23 08:59 Last Admin: 10/07/23 08:51 Dose: 10 mg Ferrous Sulfate (Ferrous Sulfate 325 Mg Tab) 325 mg PO [facility] Stop: 11/02/23 08:59 Last Admin: 10/07/23 08:52 Dose: 325 mg Gabapentin (Gabapentin 100 Mg Cap) 100 mg PO BID [facility] Stop: 11/01/23 20:59 Last Admin: 10/07/23 20:49 Dose: 100 mg Glycerin (Glycerin Adult 12 Supp/Box Supp) 1 supp [place] DAILY PRN PRN Reason: Constipation Stop: 11/03/23 03:54 Guaifenesin (Guaifenesin 600 Mg Tabcr) 1,200 mg PO Q12 [facility] Stop: 11/01/23 20:59 Last Admin: 10/07/23 20:47 Dose: 1,200 mg Guaifenesin/Dextromethorphan (Guaifenesin/Dextrom Syrup 200mg/20mg 10ml Udc) 10 ml PO Q4H PRN PRN Reason: Cough Stop: 11/01/23 15:58 Cefepime HCl 1,000 mg/ Syringe 10 mls @ 5 mls/min IV Q12H [facility]; Protocol Stop: 10/11/23 05:59 Last Admin: 10/08/23 05:22 Dose: 5 mls/min Lactobacillus Acidophilus (Advanced Probiotic 1250 Mg Capsule) 2 cap PO QAM [facility] Stop: 11/02/23 08:59 Last Admin: 10/07/23 08:51 Dose: 2 cap Magnesium Oxide (Magnesium Oxide 400 Mg Tab) 400 mg PO BID [facility] Stop: 11/04/23 16:24 Last Admin: 10/07/23 20:47 Dose: 400 mg Metoprolol Succinate (Metoprolol Succ 25mg Ext Rel Tab) 12.5 mg PO BID [facility] Stop: 11/04/23 20:59 Last Admin: 10/07/23 20:44 Dose: 12.5 mg Metronidazole (Metronidazole 500 Mg Tab) 500 mg PO Q8H [facility]; Protocol Stop: 10/11/23 03:59 Last Admin: 10/08/23 05:23 Dose: 500 mg Multivitamins/Minerals (Cerovite Adv Formula Tab) 1 tab PO DAILY [facility] Stop: 11/02/23 08:59 Last Admin: 10/07/23 08:51 Dose: 1 tab Ondansetron HCl (Ondansetron Inj 2 Mg/Ml 2 Ml Vial) 4 mg IV Q4H PRN PRN Reason: Nausea And Vomiting Stop: 11/01/23 15:41 Pantoprazole Sodium (Pantoprazole 40 Mg Tab) [facility] Stop: 11/02/23 06:29 Last Admin: 10/08/23 05:32 Dose: 40 mg Polyethylene Glycol (Polyethylene (Miralax) 17 Gm Pack) 17 gm PO DAILY [facility] Stop: 11/03/23 08:59 Last Admin: 10/06/23 08:30 Dose: Not Given Potassium Chloride (Potassium Chloride Crtab 20 Meq Tabcr) 20 meq PO BID [facility] Stop: 11/06/23 09:59 Last Admin: 10/07/23 20:44 Dose: 20 meq Raloxifene HCl (Raloxifene Hcl 60 Mg Tab) 60 mg PO QAM [facility] Stop: 11/02/23 08:59 Last Admin: 10/07/23 08:51 Dose: 60 mg
[2023-10-08 09:58] LABS: Hematocrit (blood only) 30.7 % (37.0-47.0); Hemoglobin 9.8 g/dl (12.0-16.0); Mean Corpuscular Hemoglobin 28.7 pg (25.0-34.0); Mean Corpuscular Hgb Conc 31.9 g/dL (32.0-36.0); Mean Corpuscular Volume 89.8 fL (80.0-100.0); Mean Platelet Volume 11.5 fL (9.4-12.4); Platelet Count 300 K/uL (130-400); RDW Coefficient of Variation 16.7 % (11.5-14.5); RDW Standard Deviation 54.4 fL (36.4-46.3); Red Blood Count 3.42 M/uL (4.20-5.40); White Blood Count 4.67 K/ul (4.8-10.8)
[2023-10-08 10:22] LABS: BUN Creatinine Ratio 20.6 (10-20); Calcium 8.8 mg/dl (8.6-10.3); Creatinine Clr Calc Pharmacy 20.5 ml/min; Est GFR (African American) 20.1 ml/min; Est GFR (Non-African American) 17.3 ml/min; Magnesium 1.8 mg/dl (1.7-2.4); Phosphorus 3.5 mg/dl (2.5-4.9); Potassium 4.1 mmol/L (3.5-5.1)
--- NOTE | 2023-10-08 10:28 | Nephrology Progress Note ---
Date of Service October 08, 2023 Assessment & Plan (1) JULIO (acute kidney injury): Plan: patient with some baseline CKD--fluctuating creat but recent baseline around 1.2. Creatinine is stable at 2.4 Continue holding diuretics. Daily BMP (2) Atrial fibrillation with rapid ventricular response: Plan: On eleiquis and BB now. cards note reviewed. (3) Right upper lobe pneumonia: Plan: On Abx. Improving and now on RA Plan cardiology note reviewed as well as H and P, ED notes. Plan above discussed with primary team. Admission and Anticipated Discharge Date Admission Date: October 02, 2023 Subjective Seen for acute kidney injury. No shortness of breath or leg swelling. She is making urine and has a Wallace catheter. Review of Systems 2 Review of Systems: All other systems were reviewed and negative except as noted in HPI Physical Exam 2 Physical Exam: General exam: Appears comfortable, no acute distress HEENT: Pupils are equal and reactive to light Neck: No JVD, neck is supple trachea is midline Respiratory system: Clear breath sounds bilaterally. Gastrointestinal: Abdomen is soft, non distended, non tender, bowel sounds are present CVS: Regular rate and rhythm. No murmurs, rubs or gallops Musculoskeletal: No joint or muscle tenderness Extremities: Non tender, no edema, peripheral pulses are present Neuro: Oriented, no tremors, no focal neurological deficits Skin: No rashes Results & Data Vital Signs (Past 12 Hours) Vital Signs Temp Pulse Pulse Resp BP BP Pulse Ox 10/08/23 07:51 10/08/23 07:28 36.5 C 62 18 108/66 93 10/08/23 06:07 68 10/08/23 03:20 36.5 C 67 18 110/69 98 10/08/23 00:10 60 10/07/23 23:15 36.4 C L 66 18 117/79 97 10/07/23 22:33 O2 Del Method O2 Flow Rate 10/08/23 07:51 Nasal Cannula 2 10/08/23 07:28 Room Air 10/08/23 06:07 10/08/23 03:20 Nasal Cannula 2 10/08/23 00:10 10/07/23 23:15 Nasal Cannula 2 10/07/23 22:33 Nasal Cannula 2 Laboratory Results 10/08/23 09:19 10/08/23 09:19 WBC 4.67 L RBC 3.42 L MCV 89.8 MCH 28.7 MCHC 31.9 L RDW Std Deviation 54.4 H RDW Coeff of Vicki 16.7 H Plt Count 300 MPV 11.5 Phosphorus 3.5
[2023-10-08] MEDS: AZITHROMYCIN 250 MG TAB PO SCH (12:31)
--- NOTE | 2023-10-08 19:50 | Orthopedic Consultation ---
Date of Consultation October 06, 2023 Assessment & Plan (1) Status post ORIF of fracture of ankle: 83-year-old female 2 and half month status post right ankle ORIF with lateral ankle wound -Partial weightbearing right extremity with walker -PT OT -Pain control per primary -Wound care -Compared to her most recent visit with me her wound appears to be significantly improved. There is no drainage or erythema present. There is granulation tissue present in the wound bed and the depth of the wound at least. I would continue wound care therapy. No further orthopedic intervention at this time. Patient may follow-up as an outpatient upon discharge. History of Present Illness Reason for Consultation: Right ankle wound Attending Physician: Daniel Doan MD History of Present Illness 83-year-old female who underwent right ankle reduction rotation approximate 2 and half months ago presenting for pneumonia and renal issues. She has been following with wound care for wound over the lateral aspect of her right ankle for over a month now. She notes that it continue to improve. She does not have any significant pain in the ankle. Patient was actually scheduled for review follow-up today so orthopedics was consulted for evaluation. Allergies Allergy/AdvReac Type Severity Reaction Status Date / Time demeclocycline Allergy Unknown ON Verified 10/02/23 13:36 [facility] sulfamethoxazole Allergy Unknown ON Verified 10/02/23 13:36 [facility] trimethoprim Allergy Unknown ON Verified 10/02/23 13:36 [facility] ropinirole AdvReac Intermediate fluid Verified 10/02/23 13:36 retention pregabalin [From Lyrica] AdvReac Mild Unknown Verified 10/02/23 13:36 Home Medications Medication Instructions Recorded Confirmed Type aspirin 81 mg tablet,delayed 81 mg PO QAM 05/05/18 10/02/23 History release omega 9-pkd-sns-fish oil 1,000 mg 1 cap PO TIDM 05/05/18 10/02/23 History (120 mg-180 mg) capsule (Fish Oil) raloxifene 60 mg tablet 60 mg PO QAM osteoporosis 05/05/18 10/02/23 History bumetanide 2 mg tablet 2 mg PO BID 12/30/19 10/02/23 History fenofibrate 160 mg tablet 160 mg PO DAILY 12/30/19 10/02/23 History metolazone 2.5 mg tablet 2.5 mg PO 3XWK edema 12/30/19 10/02/23 History omeprazole 40 mg capsule,delayed 40 mg PO DAILYBB 12/30/19 10/02/23 History release dextromethorphan-guaifenesin 10 10 ml PO Q4H PRN Cough 03/16/22 10/02/23 History mg-100 mg/5 mL oral liquid (Tussin DM) lorazepam 0.5 mg tablet 0.5 mg PO HS 03/16/22 10/02/23 History vit C 250 mg-vit E 90 mg-zinc 40 1 tab PO BID 03/16/22 10/02/23 History mg-copper 1 [id number] capsule (PreserVision AREDS-2) atropine 1 % eye drops 1 drp OPR Q8H PRN Excessive tearing 07/12/23 10/02/23 History escitalopram oxalate 10 mg tablet 10 mg PO QAM 07/12/23 10/02/23 History ferrous sulfate 142 mg (45 mg 142 mg PO QAM 07/12/23 10/02/23 History iron) tablet,extended release gabapentin 100 mg capsule 100 mg PO BID 07/12/23 10/02/23 History guaifenesin 600 mg tablet, 600 mg PO BID PRN Congestion 07/12/23 10/02/23 History extended release 12 hr (Mucus Relief ER) apixaban 2.5 mg tablet (Eliquis) 2.5 mg PO BID #60 tabs 07/18/23 10/02/23 Rx L.acidop,casei,lactis,rham-B.lact,karen 2 cap PO QAM 10/02/23 10/02/23 History 625 mg (10 billion cell) capsule (Advanced Probiotic) Protein Liquid 30 ml PO BID r/t wound support 10/02/23 10/02/23 History acetaminophen 325 mg tablet 650 mg PO Q6H PRN fever/pain 10/02/23 10/02/23 History (Tylenol) bisacodyl 10 mg rectal suppository 10 mg [place] DAILY PRN Constipation 10/02/23 10/02/23 History (Dulcolax (bisacodyl)) cefepime 2 gram intravenous 2 g IV Q8H R ankle infection 10/02/23 10/02/23 History solution loperamide 2 mg capsule 2 mg PO Q3H PRN Diarrhea 10/02/23 10/02/23 History magnesium hydroxide 400 mg/5 mL 2,400 mg PO DAILY PRN Constipation 10/02/23 10/02/23 History oral suspension (Milk of Magnesia) oxymetazoline 0.05 % nasal spray See Rx Instructions .Route 10/02/23 10/02/23 History .COMPLEX PRN nose bleed potassium chloride 20 mEq See Rx Instructions .Route .COMPLEX 10/02/23 10/02/23 History tablet,extended release sodium phosphates 19 gram-7 118 ml [place] DAILY PRN Constipation 10/02/23 10/02/23 History gram/118 mL enema (Enema) spironolactone 100 mg tablet 100 mg PO QAM 10/02/23 10/02/23 History Patient History Medical History Fall Cough Depression Cellulitis Acute hip pain Nocturnal hypoxia Right-sided congestive heart failure Sacral insufficiency fracture Cor pulmonale (chronic) Lumbar stenosis with neurogenic claudication Chronic GERD Right heart failure Dependence on nocturnal oxygen therapy RADHA (obstructive sleep apnea) Dyslipidemia Morbid obesity with BMI of 40.0-44.9, adult Mitral valve prolapse Osteoporosis Chronic acquired lymphedema HTN (hypertension) Chronic back pain Surgical History Hx of cholecystectomy Status post lumbar spine surgery for decompression of spinal cord 2017 Dr. Wan Status post kyphoplasty L3, L4, L5 2018 Dr. Wan Status post tonsillectomy Status post cataract surgery Status post appendectomy Family History Father Family history of colon cancer Brother Family history of prostate cancer Brother Family history of coronary artery disease Sister Family history of coronary artery disease Brother Family history of diabetes mellitus Social History Smoking Status: Never smoker Second Hand Exposure: No; Do You Dip or Chew Tobacco: No; Hx Alcohol Use: No Hx Substance Use: No Preferred Language: Luxembourgish Communication Ability: Effective Communication Ability Comment: confused Date Night Sitter Required: No Beliefs That Will Affect Care: None marital status: Single Current Living Situation: Shelter Current Living Situation Comment: [facility] Other Information That Helps Us Care for You: No Feels Safe at Home: Yes Assistive Devices: Walker and Wheelchair Physical Exam Constitutional: No acute distress, resting in bed Musculoskeletal: Right lower extremity -Dressing is in place there is a wound o nly about 3 to 4 mm size superior aspect of her incision. There is radiation tissue present in the wound bed there is no significant active drainage or erythema present. -No pain with active dorsiflexion or [place] ntar flexion - silt s/spn/dpn/t/s - fires ta/ehl/gsc + dp/pt Results & Data Vital Signs (Past 12 Hours) Vital Signs Temp Pulse Pulse Resp BP Pulse Ox O2 Del Method 10/08/23 15:40 36.3 C L 56 L 18 97/61 L 92 Room Air 10/08/23 14:03 63 10/08/23 11:22 36.4 C L 66 18 99/65 L 95 Room Air 10/08/23 07:51 Nasal Cannula O2 Flow Rate 10/08/23 15:40 10/08/23 14:03 10/08/23 11:22 10/08/23 07:51 2
--- NOTE | 2023-10-09 07:17 | Pulmonary Consultation ---
Date of Consultation October 09, 2023 Assessment & Plan (1) Right upper lobe pneumonia: (2) RADHA (obstructive sleep apnea): (3) Right heart failure: (4) Cor pulmonale (chronic): (5) CKD (chronic kidney disease): Plan Chest CT 10/03/2023 personally reviewed: Patchy opacities in the right upper lobe Dependent atelectasis bilateral lower lobes Cardiomegaly No significant mediastinal lymphadenopathy, mild right hilar lymphadenopathy 2D echo 10/04/2023: EF 55-60%, grade 1 diastolic dysfunction, RV normal in size and function, mild TR --Right upper lobe pneumonia Respiratory bio fire negative for everything Urine Legionella negative Nasal MRSA negative BNP 210 at the time of presentation --Acute hypoxic respiratory failure Multifactorial Right upper lobe pneumonia Morbid obesity with dependent atelectasis leading to VQ mismatch BiPAP nightly and as needed shortness of breath Keep O2 saturation between 90-92% --Obesity Advised to lose weight diet and exercise Plan: +6.2 L since coming to the hospital Chest x-ray from 10/07/2023 shows pulmonary vascular congestion on top of the right upper lobe infiltrative process Recommend being judicious with IV fluids and try keeping the patient negative balance. Would recommend to aim for at least negative liters on a daily basis Follow sputum culture, incentive spirometry will be beneficial Follow-up procalcitonin, CRP, BMP from today Will benefit from BiPAP nightly and as needed shortness of breath Case was discussed with Dr. Doan and RN Please note the above document was generated using voice recognition software. It may contain grammatical, syntax or spelling errors.Any formal questions or concerns about the content, text or information contained within the body of this dictation should be directly addressed to the provider for clarification. 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 Pulmonary consulted for abnormal chest CT At the time of examination patient was not in any respiratory distress She was saturating 95% on room air. Denied any chest pain, occasional cough with clear phlegm. Denied any chest congestion, no nausea vomiting Has been afebrile Prior to coming to the hospital denied any dysuria. Patient has loose bowel movements on and off which has been going on for a while No headache, no blurry vision No night sweats, no unintentional weight loss Social history: Lifetime non-smoker. 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 Allergies Allergy/AdvReac Type Severity Reaction Status Date / Time demeclocycline Allergy Unknown ON Verified 10/02/23 13:36 [facility] sulfamethoxazole Allergy Unknown ON Verified 10/02/23 13:36 [facility] trimethoprim Allergy Unknown ON Verified 10/02/23 13:36 [facility] ropinirole AdvReac Intermediate fluid Verified 10/02/23 13:36 retention pregabalin [From Lyrica] AdvReac Mild Unknown Verified 10/02/23 13:36 Home Medications Medication Instructions Recorded Confirmed Type aspirin 81 mg tablet,delayed 81 mg PO QAM 05/05/18 10/02/23 History release omega 2-esq-yzd-fish oil 1,000 mg 1 cap PO TIDM 05/05/18 10/02/23 History (120 mg-180 mg) capsule (Fish Oil) raloxifene 60 mg tablet 60 mg PO QAM osteoporosis 05/05/18 10/02/23 History bumetanide 2 mg tablet 2 mg PO BID 12/30/19 10/02/23 History fenofibrate 160 mg tablet 160 mg PO DAILY 12/30/19 10/02/23 History metolazone 2.5 mg tablet 2.5 mg PO 3XWK edema 12/30/19 10/02/23 History omeprazole 40 mg capsule,delayed 40 mg PO DAILYBB 12/30/19 10/02/23 History release dextromethorphan-guaifenesin 10 10 ml PO Q4H PRN Cough 03/16/22 10/02/23 History mg-100 mg/5 mL oral liquid (Tussin DM) lorazepam 0.5 mg tablet 0.5 mg PO HS 03/16/22 10/02/23 History vit C 250 mg-vit E 90 mg-zinc 40 1 tab PO BID 03/16/22 10/02/23 History mg-copper 1 zo-srwfll-ftfrpi capsule (PreserVision AREDS-2) atropine 1 % eye drops 1 drp OPR Q8H PRN Excessive tearing 07/12/23 10/02/23 History escitalopram oxalate 10 mg tablet 10 mg PO QAM 07/12/23 10/02/23 History ferrous sulfate 142 mg (45 mg 142 mg PO QAM 07/12/23 10/02/23 History iron) tablet,extended release gabapentin 100 mg capsule 100 mg PO BID 07/12/23 10/02/23 History guaifenesin 600 mg tablet, 600 mg PO BID PRN Congestion 07/12/23 10/02/23 History extended release 12 hr (Mucus Relief ER) apixaban 2.5 mg tablet (Eliquis) 2.5 mg PO BID #60 tabs 07/18/23 10/02/23 Rx L.acidop,casei,lactis,rham-B.lact,karen 2 cap PO QAM 10/02/23 10/02/23 History 625 mg (10 billion cell) capsule (Advanced Probiotic) Protein Liquid 30 ml PO BID r/t wound support 10/02/23 10/02/23 History acetaminophen 325 mg tablet 650 mg PO Q6H PRN fever/pain 10/02/23 10/02/23 History (Tylenol) bisacodyl 10 mg rectal suppository 10 mg MN DAILY PRN Constipation 10/02/23 10/02/23 History (Dulcolax (bisacodyl)) cefepime 2 gram intravenous 2 g IV Q8H R ankle infection 10/02/23 10/02/23 History solution loperamide 2 mg capsule 2 mg PO Q3H PRN Diarrhea 10/02/23 10/02/23 History magnesium hydroxide 400 mg/5 mL 2,400 mg PO DAILY PRN Constipation 10/02/23 10/02/23 History oral suspension (Milk of Magnesia) oxymetazoline 0.05 % nasal spray See Rx Instructions .Route 10/02/23 10/02/23 History .COMPLEX PRN nose bleed potassium chloride 20 mEq See Rx Instructions .Route .COMPLEX 10/02/23 10/02/23 History tablet,extended release sodium phosphates 19 gram-7 118 ml MN DAILY PRN Constipation 10/02/23 10/02/23 History gram/118 mL enema (Enema) spironolactone 100 mg tablet 100 mg PO QAM 10/02/23 10/02/23 History Patient History Medical History Fall Cough Depression Cellulitis Acute hip pain Nocturnal hypoxia Right-sided congestive heart failure Sacral insufficiency fracture Cor pulmonale (chronic) Lumbar stenosis with neurogenic claudication Chronic GERD Right heart failure Dependence on nocturnal oxygen therapy RADHA (obstructive sleep apnea) Dyslipidemia Morbid obesity with BMI of 40.0-44.9, adult Mitral valve prolapse Osteoporosis Chronic acquired lymphedema HTN (hypertension) Chronic back pain Surgical History Hx of cholecystectomy Status post lumbar spine surgery for decompression of spinal cord 2017 Dr. Wan Status post kyphoplasty L3, L4, L5 2018 Dr. 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 Beliefs That Will Affect Care: None marital status: Single Current Living Situation: [facility] Current Living Situation Comment: [facility] Other Information That Helps Us Care for You: No Feels Safe at Home: Yes Assistive Devices: Walker and Wheelchair Review of Systems 2 Review of Systems: All systems reviewed & are unremarkable except as noted in HPI & below Physical Exam 2 Physical Exam: Constitutional: No acute distress HEENT: EOMI, PERRLA Respiratory system: Decreased air entry bilaterally, no wheeze, no rhonchi, positive crackles bilaterally more on the right lower side CVS: S1-S2 positive, no murmurs or gallops Abdomen: Soft, nontender, nondistended, positive bowel sounds x4, obese Extremities: +2 pulses bilaterally radialis/ dorsalis pedis, no cyanosis, +2 pitting edema bilateral lower extremity Neuro: Awake alert oriented x3 Psych: Normal mood and affect G/U: Positive Wallace Skin: no rashes, warm and dry Lymphatic: no cervical or axillary lymphadenopathy Results & Data Results & Data Vital Signs (Past 12 Hours) Vital Signs Temp Pulse Pulse Resp BP BP Pulse Ox 10/09/23 05:52 55 L 10/09/23 03:12 36.3 C L 70 18 157/82 H 99 10/09/23 02:38 54 L 10/09/23 00:20 10/08/23 23:32 36.3 C L 84 18 108/61 98 10/08/23 19:26 36.5 C 71 18 98/57 L 99 O2 Del Method O2 Flow Rate 10/09/23 05:52 10/09/23 03:12 Nasal Cannula 2 10/09/23 02:38 10/09/23 00:20 Nasal Cannula 2 10/08/23 23:32 Nasal Cannula 2 10/08/23 19:26 Nasal Cannula 2 Laboratory Results 10/08/23 09:19 10/08/23 09:19 PG Care Time/CCT Total # of Minutes Spent Total Time Spent with Patient: Total time spent is greater than 50% in coordination of care (as documented) at patient's floor/unit and/or counseling patient: Coding Level of Care Code 54486 INT INP/OBS CARE 3/75MIN Diagnoses Right upper lobe pneumonia J18.9 RADHA (obstructive sleep apnea) G47.33 Right heart failure I50.810 Cor pulmonale (chronic) I27.81 CKD (chronic kidney disease) N18.9
--- NOTE | 2023-10-09 07:41 | XRay Report ---
XR chest 1V portable CLINICAL HISTORY: f/u COMPARISON STUDY: Chest CT October 03, 2023. Chest radiograph October 07, 2023. FINDINGS: There is no pneumothorax or pleural effusion. Cardiomegaly is unchanged. Pulmonary vascular congestion is again noted. Multifocal right lung airspace opacities have mildly progressed. IMPRESSION: 1. Mild progression of right lung airspace opacities suggestive of pneumonia. 2. Cardiomegaly with suspected mild pulmonary edema. ACT 112: Negative or not required by law. Electronically signed by: Lan Wilcox M.D. 10/09/2023 7:40 AM
[2023-10-09 08:19] LABS: Hematocrit (blood only) 30.8 % (37.0-47.0); Hemoglobin 9.9 g/dl (12.0-16.0); Mean Corpuscular Hemoglobin 28.7 pg (25.0-34.0); Mean Corpuscular Hgb Conc 32.1 g/dL (32.0-36.0); Mean Corpuscular Volume 89.3 fL (80.0-100.0); Mean Platelet Volume 11.3 fL (9.4-12.4); Platelet Count 292 K/uL (130-400); RDW Coefficient of Variation 17.4 % (11.5-14.5); RDW Standard Deviation 56.7 fL (36.4-46.3); Red Blood Count 3.45 M/uL (4.20-5.40); White Blood Count 5.09 K/ul (4.8-10.8)
[2023-10-09 08:34] LABS: BUN Creatinine Ratio 20.4 (10-20); Calcium 9.2 mg/dl (8.6-10.3); Creatinine Clr Calc Pharmacy 21.3 ml/min; Est GFR (African American) 21.3 ml/min; Est GFR (Non-African American) 18.4 ml/min; Phosphorus 3.6 mg/dl (2.5-4.9); Potassium 4.7 mmol/L (3.5-5.1)
--- NOTE | 2023-10-09 09:23 | Hospitalist Progress Note ---
Date of Service October 09, 2023 Assessment & Plan (1) Right upper lobe pneumonia: (2) Hypercalcemia: (3) Acute dehydration: (4) AMS (altered mental status): (5) Status post ORIF of fracture of ankle: (6) Right-sided congestive heart failure: (7) Cor pulmonale (chronic): (8) HTN (hypertension): (9) Mitral valve prolapse: (10) RADHA (obstructive sleep apnea): (11) Dyslipidemia: (12) Morbid obesity with BMI of 40.0-44.9, adult: (13) Chronic GERD: Plan Pt is an 83yoF with PMHx significant for R tib/fib fracture s/p ORIF with osteomyelitis on IV cefepime growing out proteus and pseudomonas in Jul 2023, alopecia areata, amaurosis fugax, RLS, right rotator cuff tendinopathy, prediabetes, CKDIII, hypertension, chronic right CHF, mitral valve prolapse, HLD, chronic lymphedema, RADHA, sacral insufficiency, L4 compression fracture with severe spinal stenosis, hx of COVID in Jun 2023, and osteoporosis presenting with weakness and altered mental status. RUL PNA Pt admitted with weakness and AMS No increased oxygen requirement No sepsis on admission- wbc wnl, no tachypnea or fever. Tachycardic. Lactate normal. Chest XRAY c/w of RUL pneumonia CT chest confirming pneumonia, reactive lymph nodes and pulm HTN MRSA nares negative Respiratory viral panel negative Blood Cx x2 negative sputum culture ordered but not collected Legionella negative Continue with Cefepime and azithromycin currently, Flagyl added for possible aspiration component. Consider HAP with recent discharge about a month prior. Mucinex, duonebs QID and Q2H prn, tessalon pearls, flutter, incentive spirometry Pt currently on RA Continue to monitor, provide respiratory support as needed CT chest obtained 10/03 - New interstitial and airspace opacities compatible with pneumonia. Reactive lymph nodes seen. Pulmonary hypertension is noted. Discussed w/ pulmonary med. - will start diurese pt (pt w/ julio and seen by nephrology, diuresis was held), cont. w/ incentive tess, finish abx, can use bipap HS and PRN Acute Encephalopathy Likely in setting of pneumonia infection above Head CT unremarkable UA without suggestion of infection Delirium precautions. Frequent reorientation, avoid sedating medication Continue to monitor Mental status improving Atrial Fibrillation Pt with new onset atrial fibrillation episode on 10/04 Hypotensive at the time 70s/40s, pt reporting dizziness however orienting, talking Fluid bolus, IV Lopressor 5mg Pt on Eliquis 2.5mg BID for DVT prophylaxis post orthopedic surgery in 2022 Received dose in AM, IV heparin ordered to begin in the evening urgent consult to cardiology- appreciate recs -no cardioversion at this time -po metoprolol tartrate initiation, 25mg BID -> switched to metoprolol succ inate 12.5 mg bid pt converted to sinus rhythm later in the day per cardiology, resumed Eliquis- lower dose 2.5 bid (d/t renal function) Continue to monitor on telemetry Received fluid, hold diuretics for now JULIO Creatinine baseline from end of July 2023 was ~1.00 Cr elevated at 2.02 on admission Holding Bumex, spironolactone and metolazone- resume as soon as able for CHF noted below Renally reduce medications, avoid nephrotoxins/contrast Cautious fluid hydration as needed Continue to monitor Nephrology consulted - appreciate their input, gentle IV bicarb , replace K, hold diuretics, should stop metolazone on DC 10/09 will start w/ diuretics as per discussion w/ pulm. Elevated Troponin hs trop elevated and downtrended 16.9 to 15.5 EKG with sinus tach and PACs Likely demand in setting of above Doubt ACS Cardiomegaly Bilateral Atrial Enlargement Pulmonary artery hypertension Diastolic CHF Chronic lower extremity edema Cardiomegaly and atrial enlargement noted on CT chest imaging Last echo 02/2022- noted normal atrial size, EF 50-55%, mild LVH Repeat echo-EF 50-55%, Grade I diastolic dysfunction Currently holding home spironolactone, metalozone and Bumex as above due to JULIO Daily weights, I and O's Resume meds as soon as able gentle hydration as needed for JULIO noted above 10/09 starting back w/ diuretic, as above Dysphagia Difficulty swallowing Speech consult- appreciate recs Hypercalcemia Calcium 11.7, ionized 1.51 calcium level then improved Hydration as above , monitor, nephrology also on board Elevated INR INR elevated to 1.3 Pt on anticoagulation in the form of Eliquis for DVT prophylaxis Continue as noted below Hyperkalemia POC K+ noted to be 6.1 Currently wnl Continue to monitor Chronic Anemia Hgb of 10.2, down from baseline Pending iron, b12 and folate levels Continue home iron supplementation Continue to monitor Constipation Noted on CT abd/pelvis- moderate stool burden noted Started on bowel regimen of scheduled docusate 100mg BID and miralax daily. PRN glycerin suppository De-escalate regimen now as pt having bowel movements Noted pt on iron supplementation which can be constipating. S/p Right ORIF Hx of pseudomonas/proteus Scheduled to finish IV cefepime Q8H on 10/03 in evening per ID/ortho recs Will continue Cefepime for pneumonia above Continue Eliquis 2.5 mg daily for DVT ppx Also on aspirin 81mg daily small wound noted at R ankle - wound cultx obtained, wound care and discussed w/ orthopedics Dr. Garcia - follow up with wound care center as outpt and follow w/ orthopedics as outpt Abnormal urine cultx - urine cultx pending however so far positive for noel glabrata, will further discuss w/ ID HLD: Chronic, continue fenofibrate Depression: Chronic, stable, cont gabapentin and Lexapro Prediabetes: -a1c 5.6 on 08/16/23 GERD: Chronic, cont ppi, add H2 gary with improvement to dyspepsia, continue Osteoporosis On raloxifene DVT ppx: Eliquis FEN/GI: HH/soft bite sized CODE: DNR Dispo: From [facility] Admission and Anticipated Discharge Date Admission Date: October 02, 2023 Subjective Pt seen in follow up of pna, then developed afib w/ rvr - > converted to sinus Pt confused on admission, mental status seems to be improving Pt is sitting up in bed in NAD Denies any chest pain, shortness of breath, palpitations Pt has hx of ankle surg. and osteo - still has small wound at R ankle - wound cultx obtained, wound care and discussed w/ orthopedic surgery urine cultx posit. for noel glabrata Discussed w/ pulmonary - recommend diuretics (pt w/ JULIO and also seen by nephrology). will start w/ diuresis and will cont. to closely monitor. Review of Systems Review of Systems: All systems reviewed & are unremarkable except as noted in Subjective Physical Exam Physical Exam: General: WD/WN in NAD HEENT: NC/AT, R pupil > L (chronic per niece) CV: rrr Resp: + rhonchi, + crackles no increased effort of breathing. on RA Abdomen: Soft, nontender, + bowel sounds Neuro: awake , able to answer most questions appropriately (per niece mental status improved), speech fluent, generally weak Extremities: edema in lower extremities bilaterally. Skin: No noted rashes or bruises Results & Data Results & Data Vital Signs (Past 12 Hours) Vital Signs Temp Pulse Pulse Resp BP Pulse Ox O2 Del Method 10/09/23 07:45 Room Air 10/09/23 07:26 36.5 C 75 18 108/68 98 Room Air 10/09/23 05:52 55 L 10/09/23 03:12 36.3 C L 70 18 157/82 H 99 Nasal Cannula 10/09/23 02:38 54 L 10/09/23 00:20 Nasal Cannula 10/08/23 23:32 36.3 C L 84 18 108/61 98 Nasal Cannula O2 Flow Rate 10/09/23 07:45 10/09/23 07:26 10/09/23 05:52 10/09/23 03:12 2 10/09/23 02:38 10/09/23 00:20 2 10/08/23 23:32 2 Laboratory Results 10/09/23 10/08/23 10/06/23 Range/Units 07:36 09:19 01:30 WBC 5.09 4.67 L (4.8-10.8) K/ul RBC 3.45 L 3.42 L (4.20-5.40) M/uL Hgb 9.9 L 9.8 L (12.0-16.0) g/dl Hct 30.8 L 30.7 L (37.0-47.0) % MCV 89.3 89.8 (80.0-100.0) fL MCH 28.7 28.7 (25.0-34.0) pg MCHC 32.1 31.9 L (32.0-36.0) g/dL RDW Std Deviation 56.7 H 54.4 H (36.4-46.3) fL RDW Coeff of Vicki 17.4 H 16.7 H (11.5-14.5) % Plt Count 292 300 (130-400) K/uL MPV 11.3 11.5 (9.4-12.4) fL Sodium 134 L 133 L (136-145) mmol/L Potassium 4.7 4.1 (3.5-5.1) mmol/L Chloride 110 H 108 H (98-107) mmol/L Carbon Dioxide 16 L 16 L (21-32) mmol/L Anion Gap 8 9 (3-11) BUN 48 H 51 H (6-23) mg/dl Creatinine 2.35 H 2.47 H (0.6-1.2) mg/dl Est Cr Clr Drug Dosing 21.3 20.5 ml/min Est GFR ( Amer) 21.3 20.1 ml/min Est GFR (Non-Af Amer) 18.4 17.3 ml/min BUN/Creatinine Ratio 20.4 H 20.6 H (10-20) Glucose 94 135 H (70-99(Fasting)) mg/dl Calcium 9.2 8.8 (8.6-10.3) mg/dl Phosphorus 3.6 3.5 (2.5-4.9) mg/dl Magnesium 2.0 1.8 (1.7-2.4) mg/dl C-Reactive Protein 4.39 H (0-0.5) mg/dl B-Natriuretic Peptide 220 H (0-100) pg/ml Procalcitonin 0.34 (0-0.5) ng/ml Misc Micro Test Pending Medications Administered Current Inpatient Medications Acetaminophen (Acetaminophen 325 Mg Tab) 650 mg PO Q4H PRN PRN Reason: Moderate Pain (Scale 4, 5, 6) Stop: 11/01/23 15:41 Last Admin: 10/09/23 08:38 Dose: 650 mg Apixaban (Apixaban 2.5 Mg Tab) 2.5 mg PO BID [facility] Stop: 11/03/23 20:59 Last Admin: 10/09/23 08:40 Dose: 2.5 mg Aspirin (Aspirin 81 Mg Ectab) 81 mg PO QAM [facility] Stop: 11/02/23 08:59 Last Admin: 10/09/23 08:41 Dose: 81 mg Azithromycin (Azithromycin 250 Mg Tab) 250 mg PO Q24H [facility]; Protocol Stop: 10/09/23 11:59 Last Admin: 10/08/23 12:31 Dose: 250 mg Benzonatate (Benzonatate 100 Mg Capsule) 100 mg PO TID [facility] Stop: 11/01/23 20:59 Last Admin: 10/09/23 08:38 Dose: 100 mg Docusate Sodium (Docusate Sodium 100 Mg Cap) 100 mg PO BID [facility] Stop: 11/03/23 08:59 Last Admin: 10/06/23 08:32 Dose: Not Given Escitalopram Oxalate (Escitalopram Oxalate 10 Mg Tab) 10 mg PO QAM [facility] Stop: 11/02/23 08:59 Last Admin: 10/09/23 08:40 Dose: 10 mg Ferrous Sulfate (Ferrous Sulfate 325 Mg Tab) 325 mg PO QAM [facility] Stop: 11/02/23 08:59 Last Admin: 10/09/23 08:41 Dose: 325 mg Gabapentin (Gabapentin 100 Mg Cap) 100 mg PO BID [facility] Stop: 11/01/23 20:59 Last Admin: 10/09/23 08:39 Dose: 100 mg Glycerin (Glycerin Adult 12 Supp/Box Supp) 1 supp [place] DAILY PRN PRN Reason: Constipation Stop: 11/03/23 03:54 Guaifenesin (Guaifenesin 600 Mg Tabcr) 1,200 mg PO Q12 [facility] Stop: 11/01/23 20:59 Last Admin: 10/09/23 08:40 Dose: 1,200 mg Guaifenesin/Dextromethorphan (Guaifenesin/Dextrom Syrup 200mg/20mg 10ml Udc) 10 ml PO Q4H PRN PRN Reason: Cough Stop: 11/01/23 15:58 Cefepime HCl 1,000 mg/ Syringe 10 mls @ 5 mls/min IV Q12H [facility]; Protocol Stop: 10/11/23 05:59 Last Admin: 10/09/23 06:09 Dose: 5 mls/min Lactobacillus Acidophilus (Advanced Probiotic 1250 Mg Capsule) 2 cap PO QAM [facility] Stop: 11/02/23 08:59 Last Admin: 10/09/23 08:41 Dose: 2 cap Magnesium Oxide (Magnesium Oxide 400 Mg Tab) 400 mg PO BID [facility] Stop: 11/04/23 16:24 Last Admin: 10/09/23 08:41 Dose: 400 mg Metoprolol Succinate (Metoprolol Succ 25mg Ext Rel Tab) 12.5 mg PO BID [facility] Stop: 11/04/23 20:59 Last Admin: 10/09/23 08:38 Dose: 12.5 mg Metronidazole (Metronidazole 500 Mg Tab) 500 mg PO Q8H [facility]; Protocol Stop: 10/11/23 03:59 Last Admin: 10/09/23 06:09 Dose: 500 mg Multivitamins/Minerals (Cerovite Adv Formula Tab) 1 tab PO DAILY [facility] Stop: 11/02/23 08:59 Last Admin: 10/09/23 08:40 Dose: 1 tab Ondansetron HCl (Ondansetron Inj 2 Mg/Ml 2 Ml Vial) 4 mg IV Q4H PRN PRN Reason: Nausea And Vomiting Stop: 11/01/23 15:41 Pantoprazole Sodium (Pantoprazole 40 Mg Tab) 40 mg PO DAILYBB [facility] Stop: 11/02/23 06:29 Last Admin: 10/09/23 06:09 Dose: 40 mg Polyethylene Glycol (Polyethylene (Miralax) 17 Gm Pack) 17 gm PO DAILY [facility] Stop: 11/03/23 08:59 Last Admin: 10/06/23 08:30 Dose: Not Given Potassium Chloride (Potassium Chloride Crtab 20 Meq Tabcr) 20 meq PO BID [facility] Stop: 11/06/23 09:59 Last Admin: 10/09/23 08:40 Dose: 20 meq Raloxifene HCl (Raloxifene Hcl 60 Mg Tab) 60 mg PO QAM [facility] Stop: 11/02/23 08:59 Last Admin: 10/09/23 08:41 Dose: 60 mg
[2023-10-09] MEDS: BUMETANIDE 2 MG in SYRINGE 0 ML IV ONE (14:53)
--- NOTE | 2023-10-10 08:16 | Pulmonology Progress Note ---
Date of Service October 10, 2023 Assessment & Plan (1) Right upper lobe pneumonia: (2) RADHA (obstructive sleep apnea): (3) Right heart failure: (4) Cor pulmonale (chronic): (5) CKD (chronic kidney disease): Plan Chest CT 10/03/2023 personally reviewed: Patchy opacities in the right upper lobe Dependent atelectasis bilateral lower lobes Cardiomegaly No significant mediastinal lymphadenopathy, mild right hilar lymphadenopathy 2D echo 10/04/2023: EF 55-60%, grade 1 diastolic dysfunction, RV normal in size and function, mild TR --Right upper lobe pneumonia Respiratory bio fire negative for everything Urine Legionella negative Nasal MRSA negative BNP 210 at the time of presentation, 220 08/23/1823 CRP 4.39 Procalcitonin 0.34 --Acute hypoxic respiratory failure Multifactorial Right upper lobe pneumonia Morbid obesity with dependent atelectasis leading to VQ mismatch BiPAP nightly and as needed shortness of breath Keep O2 saturation between 90-92% --Obesity Advised to lose weight diet and exercise Plan: In/out: -1.1 L, urine output 1502, +5 L since coming to the hospital Recommend being judicious with IV fluids and try keeping the patient negative balance. Would recommend to aim for at least negative 1 liters on a daily basis Got 2 mg of bumetanide yesterday. Wait for the CMP from today if the creatinine and BUN are still within acceptable ranges recommend another 2 mg of Bumex Follow sputum culture, incentive spirometry will be beneficial BiPAP nightly and as needed shortness of breath Repeat chest x-ray in the morning Case was discussed with Dr. Doan and RN Please note the above document was generated using voice recognition software. It may contain grammatical, syntax or spelling errors.Any formal questions or concerns about the content, text or information contained within the body of this dictation should be directly addressed to the provider for clarification. Admission and Anticipated Discharge Date Admission Date: October 02, 2023 Subjective Patient seen and examined at bedside. No acute distress, no adverse events overnight She diuresed well with the Bumex that she received yesterday She was saturating 94% on room air No abdominal pain. No diarrhea Fair appetite No headache or blurry vision Review of Systems 2 Review of Systems: All systems reviewed & are unremarkable except as noted in Subjective Physical Exam 2 Physical Exam: Constitutional: No acute distress HEENT: EOMI, PERRLA Respiratory system: Decreased air entry bilaterally, no wheeze, no rhonchi, positive crackles bilaterally more on the right lower side CVS: S1-S2 positive, no murmurs or gallops Abdomen: Soft, nontender, nondistended, positive bowel sounds x4, obese Extremities: +2 pulses bilaterally radialis/ dorsalis pedis, no cyanosis, +2 pitting edema bilateral lower extremity Neuro: Awake alert oriented x3 Psych: Normal mood and affect G/U: Positive Wallace Skin: no rashes, warm and dry Lymphatic: no cervical or axillary lymphadenopathy Results & Data Results & Data Vital Signs (Past 12 Hours) Vital Signs Temp Pulse Pulse Resp BP Pulse Ox O2 Del Method 10/10/23 02:53 36.6 C 76 18 94/61 L 99 Nasal Cannula 10/10/23 00:29 60 10/09/23 23:31 Nasal Cannula 10/09/23 22:50 36.4 C L 78 18 130/71 100 Nasal Cannula O2 Flow Rate 10/10/23 02:53 2 10/10/23 00:29 10/09/23 23:31 2 10/09/23 22:50 2 Laboratory Results 10/09/23 07:36 10/09/23 07:36 PG Care Time/CCT Total # of Minutes Spent Total Time Spent with Patient: Total time spent is greater than 50% in coordination of care (as documented) at patient's floor/unit and/or counseling patient: Coding Level of Care Code 13911 SUB INP/OBS CARE 3/50MIN Diagnoses Right upper lobe pneumonia J18.9 RADHA (obstructive sleep apnea) G47.33 Right heart failure I50.810 Cor pulmonale (chronic) I27.81 CKD (chronic kidney disease) N18.9
--- NOTE | 2023-10-10 08:50 | Hospitalist Progress Note ---
Date of Service October 10, 2023 Assessment & Plan (1) Right upper lobe pneumonia: (2) Hypercalcemia: (3) Acute dehydration: (4) AMS (altered mental status): (5) Status post ORIF of fracture of ankle: (6) Right-sided congestive heart failure: (7) Cor pulmonale (chronic): (8) HTN (hypertension): (9) Mitral valve prolapse: (10) RADHA (obstructive sleep apnea): (11) Dyslipidemia: (12) Morbid obesity with BMI of 40.0-44.9, adult: (13) Chronic GERD: Plan Pt is an 83yoF with PMHx significant for R tib/fib fracture s/p ORIF with osteomyelitis on IV cefepime growing out proteus and pseudomonas in Jul 2023, alopecia areata, amaurosis fugax, RLS, right rotator cuff tendinopathy, prediabetes, CKDIII, hypertension, chronic right CHF, mitral valve prolapse, HLD, chronic lymphedema, RADHA, sacral insufficiency, L4 compression fracture with severe spinal stenosis, hx of COVID in Jun 2023, and osteoporosis presenting with weakness and altered mental status. RUL PNA Pt admitted with weakness and AMS No increased oxygen requirement No sepsis on admission- wbc wnl, no tachypnea or fever. Tachycardic. Lactate normal. Chest XRAY c/w of RUL pneumonia CT chest confirming pneumonia, reactive lymph nodes and pulm HTN MRSA nares negative Respiratory viral panel negative Blood Cx x2 negative sputum culture ordered but not collected Legionella negative Continue with Cefepime and azithromycin currently, Flagyl added for possible aspiration component. Consider HAP with recent discharge about a month prior. Mucinex, duonebs QID and Q2H prn, tessalon pearls, flutter, incentive spirometry Pt currently on RA Continue to monitor, provide respiratory support as needed CT chest obtained 10/03 - New interstitial and airspace opacities compatible with pneumonia. Reactive lymph nodes seen. Pulmonary hypertension is noted. Discussed w/ pulmonary med. - started diurese (received 2 mg iv bumex) - (pt w/ julio and seen by nephrology, diuresis was held), cont. w/ incentive tess, finish abx, can use bipap HS and PRN Acute Encephalopathy Likely in setting of pneumonia infection above Head CT unremarkable UA without suggestion of infection Delirium precautions. Frequent reorientation, avoid sedating medication Continue to monitor Mental status improving Atrial Fibrillation Pt with new onset atrial fibrillation episode on 10/04 Hypotensive at the time 70s/40s, pt reporting dizziness however orienting, talking Fluid bolus, IV Lopressor 5mg Pt on Eliquis 2.5mg BID for DVT prophylaxis post orthopedic surgery in 2022 Received dose in AM, IV heparin ordered to begin in the evening urgent consult to cardiology- appreciate recs -no cardioversion at this time -po metoprolol tartrate initiation, 25mg BID -> switched to metoprolol succinate 12.5 mg bid pt converted to sinus rhythm later in the day per cardiology, resumed Eliquis- lower dose 2.5 bid (d/t renal function) Continue to monitor on telemetry Received fluid, hold diuretics for now JULIO Creatinine baseline from end of July 2023 was ~1.00 Cr elevated at 2.02 on admission Holding Bumex, spironolactone and metolazone- resume as soon as able for CHF noted below Renally reduce medications, avoid nephrotoxins/contrast Cautious fluid hydration as needed Continue to monitor Nephrology consulted - appreciate their input, gentle IV bicarb , replace K, hold diuretics, should stop metolazone on DC 10/09 started w/ diuretics as per discussion w/ pulm. Elevated Troponin hs trop elevated and downtrended 16.9 to 15.5 EKG with sinus tach and PACs Likely demand in setting of above Doubt ACS Cardiomegaly Bilateral Atrial Enlargement Pulmonary artery hypertension Diastolic CHF Chronic lower extremity edema Cardiomegaly and atrial enlargement noted on CT chest imaging Last echo 02/2022- noted normal atrial size, EF 50-55%, mild LVH Repeat echo-EF 50-55%, Grade I diastolic dysfunction Currently holding home spironolactone, metalozone and Bumex as above due to JULIO Daily weights, I and O's Resume meds as soon as able gentle hydration as needed for JULIO noted above 10/09 started back on diuretic, as above Dysphagia Difficulty swallowing Speech consult- appreciate recs Hypercalcemia Calcium 11.7, ionized 1.51 calcium level then improved Hydration as above , monitor, nephrology also on board Elevated INR INR elevated to 1.3 Pt on anticoagulation in the form of Eliquis for DVT prophylaxis Continue as noted below Hyperkalemia POC K+ noted to be 6.1 Currently wnl Continue to monitor Chronic Anemia Hgb of 10.2, down from baseline Pending iron, b12 and folate levels Continue home iron supplementation Continue to monitor Constipation Noted on CT abd/pelvis- moderate stool burden noted Started on bowel regimen of scheduled docusate 100mg BID and miralax daily. PRN glycerin suppository De-escalate regimen now as pt having bowel movements Noted pt on iron supplementation which can be constipating. S/p Right ORIF Hx of pseudomonas/proteus Scheduled to finish IV cefepime Q8H on 10/03 in evening per ID/ortho recs Will continue Cefepime for pneumonia above Continue Eliquis 2.5 mg daily for DVT ppx Also on aspirin 81mg daily small wound noted at R ankle - wound cultx obtained, wound care and discussed w/ orthopedics Dr. Garcia - follow up with wound care center as outpt and follow w/ orthopedics as outpt Abnormal urine cultx - urine cultx pending however so far positive for noel glabrata, will further discuss w/ ID HLD: Chronic, continue fenofibrate Depression: Chronic, stable, cont gabapentin and Lexapro Prediabetes: -a1c 5.6 on 08/16/23 GERD: Chronic, cont ppi, add H2 gary with improvement to dyspepsia, continue Osteoporosis On raloxifene DVT ppx: Eliquis FEN/GI: HH/soft bite sized CODE: DNR Dispo: From [facility] Admission and Anticipated Discharge Date Admission Date: October 02, 2023 Subjective Pt seen in follow up of pna, then developed afib w/ rvr - > converted to sinus Pt confused on admission, mental status seems to be improving Pt is sitting up in bed in NAD Denies any chest pain, shortness of breath, palpitations Pt has hx of ankle surg. and osteo - still has small wound at R ankle - wound cultx obtained, wound care and discussed w/ orthopedic surgery urine cultx posit. for noel glabrata Discussed w/ pulmonary - recommend diuretics (pt w/ JULIO and also seen by nephrology). started w/ diuretics (received 2 mg iv bumex) and will cont. to closely monitor. Review of Systems Review of Systems: All systems reviewed & are unremarkable except as noted in Subjective Physical Exam Physical Exam: General: WD/WN in NAD HEENT: NC/AT, R pupil > L (chronic per niece) CV: rrr Resp: + rhonchi, no increased effort of breathing. on RA Abdomen: Soft, nontender, + bowel sounds Neuro: awake , able to answer most questions appropriately (per niece mental status improved), speech fluent, generally weak Extremities: edema in lower extremities bilaterally. Skin: No noted rashes or bruises Results & Data Results & Data Vital Signs (Past 12 Hours) Vital Signs Temp Pulse Pulse Resp BP BP Pulse Ox 10/10/23 08:19 36.7 C 80 18 118/65 99 10/10/23 02:53 36.6 C 76 18 94/61 L 99 10/10/23 00:29 60 10/09/23 23:31 10/09/23 22:50 36.4 C L 78 18 130/71 100 O2 Del Method O2 Flow Rate 10/10/23 08:19 Nasal Cannula 2 10/10/23 02:53 Nasal Cannula 2 10/10/23 00:29 10/09/23 23:31 Nasal Cannula 2 10/09/23 22:50 Nasal Cannula 2 Laboratory Results 10/10/23 Range/Units 09:08 WBC 5.62 (4.8-10.8) K/ul RBC 3.33 L (4.20-5.40) M/uL Hgb 9.5 L (12.0-16.0) g/dl Hct 30.5 L (37.0-47.0) % MCV 91.6 (80.0-100.0) fL MCH 28.5 (25.0-34.0) pg MCHC 31.1 L (32.0-36.0) g/dL RDW Std Deviation 57.5 H (36.4-46.3) fL RDW Coeff of Vicki 17.3 H (11.5-14.5) % Plt Count 296 (130-400) K/uL MPV 12.2 (9.4-12.4) fL Sodium 135 L (136-145) mmol/L Potassium 4.3 (3.5-5.1) mmol/L Chloride 111 H (98-107) mmol/L Carbon Dioxide 16 L (21-32) mmol/L Anion Gap 8 (3-11) BUN 45 H (6-23) mg/dl Creatinine 2.29 H (0.6-1.2) mg/dl Est Cr Clr Drug Dosing 22.2 ml/min Est GFR ( Amer) 22.0 ml/min Est GFR (Non-Af Amer) 19.0 ml/min BUN/Creatinine Ratio 19.7 (10-20) Glucose 130 H (70-99(Fasting)) mg/dl Calcium 9.2 (8.6-10.3) mg/dl Phosphorus 3.6 (2.5-4.9) mg/dl Magnesium 2.0 (1.7-2.4) mg/dl Medications Administered Current Inpatient Medications Acetaminophen (Acetaminophen 325 Mg Tab) 650 mg PO Q4H PRN PRN Reason: Moderate Pain (Scale 4, 5, 6) Stop: 11/01/23 15:41 Last Admin: 10/09/23 08:38 Dose: 650 mg Apixaban (Apixaban 2.5 Mg Tab) 2.5 mg PO BID [facility] Stop: 11/03/23 20:59 Last Admin: 10/09/23 20:53 Dose: 2.5 mg Aspirin (Aspirin 81 Mg Ectab) [facility] [place] Stop: 11/02/23 08:59 Last Admin: 10/09/23 08:41 Dose: 81 mg Benzonatate (Benzonatate 100 Mg Capsule) 100 mg PO TID [facility] Stop: 11/01/23 20:59 Last Admin: 10/09/23 20:53 Dose: 100 mg Docusate Sodium (Docusate Sodium 100 Mg Cap) 100 mg PO BID [facility] Stop: 11/03/23 08:59 Last Admin: 10/06/23 08:32 Dose: Not Given Escitalopram Oxalate (Escitalopram Oxalate 10 Mg Tab) [facility] [place] Stop: 11/02/23 08:59 Last Admin: 10/09/23 08:40 Dose: 10 mg Ferrous Sulfate (Ferrous Sulfate 325 Mg Tab) 325 [facility] [place] Stop: 11/02/23 08:59 Last Admin: 10/09/23 08:41 Dose: 325 mg Gabapentin (Gabapentin 100 Mg Cap) 100 mg PO BID [facility] Stop: 11/01/23 20:59 Last Admin: 10/09/23 20:53 Dose: 100 mg Glycerin (Glycerin Adult 12 Supp/Box Supp) 1 supp [place] DAILY PRN PRN Reason: Constipation Stop: 11/03/23 03:54 Guaifenesin (Guaifenesin 600 Mg Tabcr) 1,200 mg PO Q12 [facility] Stop: 11/01/23 20:59 Last Admin: 10/09/23 20:53 Dose: 1,200 mg Guaifenesin/Dextromethorphan (Guaifenesin/Dextrom Syrup 200mg/20mg 10ml Udc) 10 ml PO Q4H PRN PRN Reason: Cough Stop: 11/01/23 15:58 Cefepime HCl 1,000 mg/ Syringe 10 mls @ 5 mls/min IV Q12H [facility]; Protocol Stop: 10/11/23 05:59 Last Admin: 10/10/23 05:33 Dose: 5 mls/min Lactobacillus Acidophilus (Advanced Probiotic 1250 Mg Capsule) 2 cap PO QAM [facility] Stop: 11/02/23 08:59 Last Admin: 10/09/23 08:41 Dose: 2 cap Magnesium Oxide (Magnesium Oxide 400 Mg Tab) 400 mg PO BID [facility] Stop: 11/04/23 16:24 Last Admin: 10/09/23 20:53 Dose: 400 mg Metoprolol Succinate (Metoprolol Succ 25mg Ext Rel Tab) 12.5 mg PO BID [facility] Stop: 11/04/23 20:59 Last Admin: 10/09/23 20:53 Dose: 12.5 mg Metronidazole (Metronidazole 500 Mg Tab) 500 mg PO Q8H [facility]; Protocol Stop: 10/11/23 03:59 Last Admin: 10/10/23 05:33 Dose: 500 mg Multivitamins/Minerals (Cerovite Adv Formula Tab) 1 tab PO DAILY [facility] Stop: 11/02/23 08:59 Last Admin: 10/09/23 08:40 Dose: 1 tab Ondansetron HCl (Ondansetron Inj 2 Mg/Ml 2 Ml Vial) 4 mg IV Q4H PRN PRN Reason: Nausea And Vomiting Stop: 11/01/23 15:41 Pantoprazole Sodium (Pantoprazole 40 Mg Tab) [facility] Stop: 11/02/23 06:29 Last Admin: 10/10/23 05:33 Dose: 40 mg Polyethylene Glycol (Polyethylene (Miralax) 17 Gm Pack) 17 gm PO DAILY [facility] Stop: 11/03/23 08:59 Last Admin: 10/06/23 08:30 Dose: Not Given Potassium Chloride (Potassium Chloride Crtab 20 Meq Tabcr) 20 meq PO BID [facility] Stop: 11/06/23 09:59 Last Admin: 10/09/23 20:53 Dose: 20 meq Raloxifene HCl (Raloxifene Hcl 60 Mg Tab) 60 mg PO QAM [facility] Stop: 11/02/23 08:59 Last Admin: 10/09/23 08:41 Dose: 60 mg
[2023-10-10 09:47] LABS: Hematocrit (blood only) 30.5 % (37.0-47.0); Hemoglobin 9.5 g/dl (12.0-16.0); Mean Corpuscular Hemoglobin 28.5 pg (25.0-34.0); Mean Corpuscular Hgb Conc 31.1 g/dL (32.0-36.0); Mean Corpuscular Volume 91.6 fL (80.0-100.0); Mean Platelet Volume 12.2 fL (9.4-12.4); Platelet Count 296 K/uL (130-400); RDW Coefficient of Variation 17.3 % (11.5-14.5); RDW Standard Deviation 57.5 fL (36.4-46.3); Red Blood Count 3.33 M/uL (4.20-5.40); White Blood Count 5.62 K/ul (4.8-10.8)
[2023-10-10 10:10] LABS: BUN Creatinine Ratio 19.7 (10-20); Calcium 9.2 mg/dl (8.6-10.3); Creatinine Clr Calc Pharmacy 22.2 ml/min; Phosphorus 3.6 mg/dl (2.5-4.9); Potassium 4.3 mmol/L (3.5-5.1)
--- NOTE | 2023-10-10 12:31 | Nephrology Progress Note ---
Date of Service October 10, 2023 Assessment & Plan (1) JULIO (acute kidney injury): Plan: patient with some baseline CKD--fluctuating creat but recent baseline around 1.2. Creatinine is stable at 2.3-2.4. stable nonoliguric stage 2 julio -had bumex yesterday 2 mg IV w/ good response; pulmonary recommending further bumex today > would limit to one mg IV however and would preferentially limit po intake and concentrate cefepime, zofran, al IV meds as much as possible Daily BMP (2) Acute hypoxic respiratory failure: Plan: multifactorial > RUL PNA, RHF, OHVS. ON RA now. judicious diuretics as above (3) Right upper lobe pneumonia: Plan: On Abx. Improving and now on RA Admission and Anticipated Discharge Date Admission Date: October 02, 2023 Subjective tells me she's not doing well today but can't say why; fatigued; can't tellme how much diarrhea or if abd pain. Review of Systems 2 Review of Systems: All systems reviewed & are unremarkable except as noted in Subjective (limited by fatigue) Physical Exam 2 Constitutional: well developed, well nourished, + morbidly obese, + frail appearing and + lethargic Eyes: EOM intact bilaterally ENMT: Ears: no external ear abnormality Nose: no external nose abnormality Mouth: + dry oral mucous membranes Neck: no nuchal rigidity Respiratory: normal respiratory effort Auscultation: + diminished lung sounds and + crackles (bibasilar R>L) Gastrointestinal (Abdomen): Inspection/Auscultation: normal bowel sounds P ercussion/Palpation: abdomen soft; abdomen nontender Musculoskeletal: Extremities: strength 5/5 throughout Skin: no rashes, warm and dry Neurologic: sweet, fluent speech, no tremor Psychiatric: Orientation: oriented to person and oriented to place Results & Data Vital Signs (Past 12 Hours) Vital Signs Temp Pulse Pulse Resp BP BP Pulse Ox 10/10/23 12:24 36.8 C 76 18 130/71 96 10/10/23 08:19 36.7 C 80 18 118/65 99 10/10/23 08:00 10/10/23 02:53 36.6 C 76 18 94/61 L 99 10/10/23 00:29 60 O2 Del Method O2 Flow Rate 02/19/24 12:24 Room Air 10/10/23 08:19 Nasal Cannula 2 10/10/23 08:00 Nasal Cannula 2 10/10/23 02:53 Nasal Cannula 2 10/10/23 00:29 Laboratory Results 10/10/23 09:08 10/10/23 09:08
[2023-10-10] MEDS: BUMETANIDE 2 MG in SYRINGE 0 ML IV ONE (15:18)
--- NOTE | 2023-10-10 15:57 | Infectious Disease Consult ---
Date of Service October 10, 2023 Telehealth Information I performed this visit using a real-time telehealth connection between my location and the patients location ([facility]). 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 My office door was closed and no one else was present in the room with me.Patient (or authorized healthcare small business sales representative) provided consent to proceed with the visit, expressed an understanding of privacy and security of the telemedicine visit, and gave permission to have a hospital small business sales representative in the room in order to assist with the visit and to conduct portions of the visit, as needed. I informed the patient (or authorized healthcare small business sales representative) that I reviewed their record and presented the opportunity for them to ask any questions regarding the visit today. The patient agreed to participate. Assessment & Plan (1) Status post ORIF of fracture of ankle: Plan: S/p fall in 06/2023 with right fibular fracture status post repair on 07/13/2023 had injury secondary to boot, had I&D Cx: Proteus, Pseudomonas and Finegoldia magna patient was evaluated by ID and discharged on IV cefepime for 6 weeks - superficial swab taken from right ankle wound: Noel albicans/dublienensis - since patient had clinically improved without any antifungals or treating Finegoldia magna, we agree with finishing IV cefepime and keeping p.o. suppression antibiotics for retained hardware - recommending p.o. ciprofloxacin 500 mg twice daily and p.o. amoxicillin 500mg TID for suppression(Cx: Proteus, Pseudomonas, Finegoldia magna) and follow up in infectious disease clinic in 2 months. (2) Retained orthopedic hardware: (3) Right upper lobe pneumonia: Plan: chest x-ray from 10/07 pulmonary vascular congestion, right upper lobe infiltrative process noted however infectious workup for pneumoniae was negative including RVP panel, Legionella urine antigen, MRSA nares negative patient noted to have pulmonary vascular condition secondary to excessive IV fluids on admission we do not have any concern for any pneumoniae at this time I was present during the entire telemedicine visit and I agree with the evaluation and plan Gracia Roach MD (4) Urine culture positive: Plan: Urine cultures had noel glabrata however she did not had any symptoms and we do not recommend any treatment History of Present Illness History of Present Illness 83 Y F Significant history right tibia/fibular fracture status post ORIF with osteomyelitis on IV cefepime, cultures Proteus (S-Unasyn, ampicillin, Augmentin, cefepime, ceftriaxone, Cipro, ertapenem, Gent, Levaquin, meropenem, tobramycin, Bactrim, Zosyn) Pseudomonas (S-cefepime, ceftazidime, Avycaz, Cipro, Levaquin, Tobra, Zosyn R-meropenem, I-gentamicin), in 07/2023, 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 Patient was found to have right upper lobe pneumonia noted to be in volume overload chest x-ray from 10/07 pulmonary vascular condition, right upper lobe infiltrative process. Patient was evaluated by ortho, felt that the wound is clinically improving, granulation tissue present in the wound bed and depth of the wound at least did not recommend any acute intervention at this time. Infectious workup including RVP negative, MRSA nares negative, blood cultures from 10/03, 10/07 negative Legionella urine antigen negative Patient is afebrile, T-max 36.7 WBC: 5.6 K, tissues from the right ankle Noel albicans/Dubliniensis, urine cultures Noel glabrata Antibiotics: cefepime and flagyl Allergies Allergy/AdvReac Type Severity Reaction Status Date / Time demeclocycline Allergy Unknown ON Verified 10/02/23 13:36 [facility] sulfamethoxazole Allergy Unknown ON Verified 10/02/23 13:36 [facility] trimethoprim Allergy Unknown ON Verified 10/02/23 13:36 [facility] ropinirole AdvReac Intermediate fluid Verified 10/02/23 13:36 retention pregabalin [From Lyrica] AdvReac Mild Unknown Verified 10/02/23 13:36 Home Medications Medication Instructions Recorded Confirmed Type aspirin 81 mg tablet,delayed 81 mg PO QAM 05/05/18 10/02/23 History release omega 9-akz-swt-fish oil 1,000 mg 1 cap PO TIDM 05/05/18 10/02/23 History (120 mg-180 mg) capsule (Fish Oil) raloxifene 60 mg tablet 60 mg PO QAM osteoporosis 05/05/18 10/02/23 History bumetanide 2 mg tablet 2 mg PO BID 12/30/19 10/02/23 History fenofibrate 160 mg tablet 160 mg PO DAILY 12/30/19 10/02/23 History metolazone 2.5 mg tablet 2.5 mg PO 3XWK edema 12/30/19 10/02/23 History omeprazole 40 mg capsule,delayed 40 mg PO DAILYBB 12/30/19 10/02/23 History release dextromethorphan-guaifenesin 10 10 ml PO Q4H PRN Cough 03/16/22 10/02/23 History mg-100 mg/5 mL oral liquid (Tussin DM) lorazepam 0.5 mg tablet 0.5 mg PO HS 03/16/22 10/02/23 History vit C 250 mg-vit E 90 mg-zinc 40 1 tab PO BID 03/16/22 10/02/23 History mg-copper 1 lc-ufdesp-gcfvio capsule (PreserVision AREDS-2) atropine 1 % eye drops 1 drp OPR Q8H PRN Excessive tearing 07/12/23 10/02/23 History escitalopram oxalate 10 mg tablet 10 mg PO QAM 07/12/23 10/02/23 History ferrous sulfate 142 mg (45 mg 142 mg PO QAM 07/12/23 10/02/23 History iron) tablet,extended release gabapentin 100 mg capsule 100 mg PO BID 07/12/23 10/02/23 History guaifenesin 600 mg tablet, 600 mg PO BID PRN Congestion 07/12/23 10/02/23 History extended release 12 hr (Mucus Relief ER) apixaban 2.5 mg tablet (Eliquis) 2.5 mg PO BID #60 tabs 07/18/23 10/02/23 Rx L.acidop,casei,lactis,rham-B.lact,karen 2 cap PO QAM 10/02/23 10/02/23 History 625 mg (10 billion cell) capsule (Advanced Probiotic) Protein Liquid 30 ml PO BID r/t wound support 10/02/23 10/02/23 History acetaminophen 325 mg tablet 650 mg PO Q6H PRN fever/pain 10/02/23 10/02/23 History (Tylenol) bisacodyl 10 mg rectal suppository 10 mg TN DAILY PRN Constipation 10/02/23 10/02/23 History (Dulcolax (bisacodyl)) cefepime 2 gram intravenous 2 g IV Q8H R ankle infection 10/02/23 10/02/23 History solution loperamide 2 mg capsule 2 mg PO Q3H PRN Diarrhea 10/02/23 10/02/23 History magnesium hydroxide 400 mg/5 mL 2,400 mg PO DAILY PRN Constipation 10/02/23 10/02/23 History oral suspension (Milk of Magnesia) oxymetazoline 0.05 % nasal spray See Rx Instructions .Route 10/02/23 10/02/23 History .COMPLEX PRN nose bleed potassium chloride 20 mEq See Rx Instructions .Route .COMPLEX 10/02/23 10/02/23 History tablet,extended release sodium phosphates 19 gram-7 118 ml TN DAILY PRN Constipation 10/02/23 10/02/23 History gram/118 mL enema (Enema) spironolactone 100 mg tablet 100 mg PO QAM 10/02/23 10/02/23 History Patient History Medical History Fall Cough Depression Cellulitis Acute hip pain Nocturnal hypoxia Right-sided congestive heart failure Sacral insufficiency fracture Cor pulmonale (chronic) Lumbar stenosis with neurogenic claudication Chronic GERD Right heart failure Dependence on nocturnal oxygen therapy RADHA (obstructive sleep apnea) Dyslipidemia Morbid obesity with BMI of 40.0-44.9, adult Mitral valve prolapse Osteoporosis Chronic acquired lymphedema HTN (hypertension) Chronic back pain Surgical History Hx of cholecystectomy Status post lumbar spine surgery for decompression of spinal cord 2017 Dr. Wan Status post kyphoplasty L3, L4, L5 2018 Dr. 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: No Beliefs That Will Affect Care: None marital status: Single Current Living Situation: Custodial Current Living Situation Comment: [facility] Other Information That Helps Us Care for You: No Feels Safe at Home: Yes Assistive Devices: Walker and Wheelchair Review of Systems All other review of systems negative Physical Exam physical examination was limited Results & Data Vital Signs (Past 12 Hours) Vital Signs Temp Pulse Resp BP BP Pulse Ox O2 Del Method 10/10/23 12:24 36.8 C 76 18 130/71 96 Room Air 10/10/23 08:19 36.7 C 80 18 118/65 99 Nasal Cannula 10/10/23 08:00 Nasal Cannula O2 Flow Rate 10/10/23 12:24 10/10/23 08:19 2 10/10/23 08:00 2 Laboratory Results 10/07/23 Unknown Gram Stain - Final Ankle,Right Aerobic and Anaerobic Culture - Preliminary Noel albicans/dubliniensis 10/10/23 09:08 WBC 5.62 RBC 3.33 L Hgb 9.5 L Hct 30.5 L MCV 91.6 MCH 28.5 MCHC 31.1 L RDW Std Deviation 57.5 H RDW Coeff of Vicki 17.3 H Plt Count 296 MPV 12.2 Sodium 135 L Potassium 4.3 Chloride 111 H Carbon Dioxide 16 L Anion Gap 8 BUN 45 H Creatinine 2.29 H Est Cr Clr Drug Dosing 22.2 Est GFR ( Amer) 22.0 Est GFR (Non-Af Amer) 19.0 BUN/Creatinine Ratio 19.7 Glucose 130 H Calcium 9.2 Phosphorus 3.6 Magnesium 2.0 Diagnostic Findings chest x-ray from 10/07: pulmonary vascular congestion, right upper lobe infiltrative process Medications Administered Home Medications Medication Instructions Recorded Confirmed Last Taken aspirin 81 mg tablet,delayed 81 mg PO QAM 05/05/18 10/02/23 10/02/23 release omega 1-aub-htn-fish oil 1,000 mg 1 cap PO TIDM 05/05/18 10/02/23 10/02/23 (120 mg-180 mg) capsule (Fish Oil) raloxifene 60 mg tablet 60 mg PO QAM osteoporosis 05/05/18 10/02/23 10/02/23 bumetanide 2 mg tablet 2 mg PO BID 12/30/19 10/02/23 10/02/23 fenofibrate 160 mg tablet 160 mg PO DAILY 12/30/19 10/02/23 10/01/23 metolazone 2.5 mg tablet 2.5 mg PO 3XWK edema 12/30/19 10/02/23 07/11/23 omeprazole 40 mg capsule,delayed 40 mg PO DAILYBB 12/30/19 10/02/23 10/02/23 release dextromethorphan-guaifenesin 10 10 ml PO Q4H PRN Cough 03/16/22 10/02/23 Unknown mg-100 mg/5 mL oral liquid (Tussin DM) lorazepam 0.5 mg tablet 0.5 mg PO HS 03/16/22 10/02/23 10/01/23 vit C 250 mg-vit E 90 mg-zinc 40 1 tab PO BID 03/16/22 10/02/23 10/02/23 mg-copper 1 kb-kiasuy-blpfgb capsule (PreserVision AREDS-2) atropine 1 % eye drops 1 drp OPR Q8H PRN Excessive tearing 07/12/23 10/02/23 Unknown escitalopram oxalate 10 mg tablet 10 mg PO QAM 07/12/23 10/02/23 10/02/23 ferrous sulfate 142 mg (45 mg 142 mg PO QAM 07/12/23 10/02/23 10/01/23 iron) tablet,extended release gabapentin 100 mg capsule 100 mg PO BID 07/12/23 10/02/23 10/02/23 guaifenesin 600 mg tablet, 600 mg PO BID PRN Congestion 07/12/23 10/02/23 Unknown extended release 12 hr (Mucus Relief ER) apixaban 2.5 mg tablet (Eliquis) 2.5 mg PO BID #60 tabs 07/18/23 10/02/2324 L.acidop,casei,lactis,rham-B.lact,karen 2 cap PO QAM 10/02/23 10/02/23 10/02/23 625 mg (10 billion cell) capsule (Advanced Probiotic) Protein Liquid 30 ml PO BID r/t wound support 10/02/23 10/02/23 10/02/23 acetaminophen 325 mg tablet 650 mg PO Q6H PRN fever/pain 10/02/23 10/02/23 Unknown (Tylenol) bisacodyl 10 mg rectal suppository 10 mg TN DAILY PRN Constipation 10/02/23 10/02/23 Unknown (Dulcolax (bisacodyl)) cefepime 2 gram intravenous 2 g IV Q8H R ankle infection 10/02/23 10/02/23 10/02/23 solution loperamide 2 mg capsule 2 mg PO Q3H PRN Diarrhea 10/02/23 10/02/23 Unknown magnesium hydroxide 400 mg/5 mL 2,400 mg PO DAILY PRN Constipation 10/02/23 10/02/23 Unknown oral suspension (Milk of Magnesia) oxymetazoline 0.05 % nasal spray See Rx Instructions .Route 10/02/23 10/02/23 Unknown .COMPLEX PRN nose bleed potassium chloride 20 mEq See Rx Instructions .Route .COMPLEX 10/02/23 10/02/23 10/02/23 tablet,extended release sodium phosphates 19 gram-7 118 ml TN DAILY PRN Constipation 10/02/23 10/02/23 Unknown gram/118 mL enema (Enema) spironolactone 100 mg tablet 100 mg PO QAM 10/02/23 10/02/23 10/02/23 Active Medications Generic Name Dose Route Start Last Admin Trade Name Freq PRN Reason Stop Dose Admin Acetaminophen 650 mg 10/02/23 15:42 10/09/23 08:38 Acetaminophen 325 Mg Tab PO 11/01/23 15:41 650 mg Q4H PRN Administration Moderate Pain (Scale 4, 5, 6) Apixaban 2.5 mg 10/04/23 21:00 10/10/23 09:44 Apixaban 2.5 Mg Tab PO 11/03/23 20:59 2.5 mg BID HAN Administration Aspirin 81 mg 10/03/23 09:00 10/10/23 09:44 Aspirin 81 Mg Ectab PO 11/02/23 08:59 81 mg QAM HAN Administration Benzonatate 100 mg 10/02/23 21:00 10/10/23 15:18 Benzonatate 100 Mg Capsule PO 11/01/23 20:59 100 mg TID HAN Administration Docusate Sodium 100 mg 10/04/23 09:00 10/06/23 08:32 Docusate Sodium 100 Mg Cap PO 11/03/23 08:59 Not Given BID HAN Escitalopram Oxalate 10 mg 10/03/23 09:00 10/10/23 09:44 Escitalopram Oxalate 10 Mg Tab PO 11/02/23 08:59 10 mg QAM HAN Administration Ferrous Sulfate 325 mg 10/03/23 09:00 10/10/23 09:45 Ferrous Sulfate 325 Mg Tab PO 11/02/23 08:59 325 mg QAM HAN Administration Gabapentin 100 mg 10/02/23 21:00 10/10/23 09:44 Gabapentin 100 Mg Cap PO 11/01/23 20:59 100 mg BID HAN Administration Guaifenesin 1,200 mg 10/02/23 21:00 10/10/23 09:44 Guaifenesin 600 Mg Tabcr PO 11/01/23 20:59 1,200 mg Q12 HAN Administration Cefepime HCl 1,000 mg/ Syringe 10 mls @ 5 mls/min 10/04/23 06:00 10/10/23 05:33 IV 10/11/23 05:59 5 mls/min Q12H HAN Administration Protocol Lactobacillus Acidophilus 2 cap 10/03/23 09:00 10/10/23 09:44 Advanced Probiotic 1250 Mg Capsule PO 11/02/23 08:59 2 cap QAM HAN Administration Magnesium Oxide 400 mg 10/05/23 16:25 10/10/23 09:45 Magnesium Oxide 400 Mg Tab PO 11/04/23 16:24 400 mg BID HAN Administration Metoprolol Succinate 12.5 mg 10/05/23 21:00 10/10/23 09:45 Metoprolol Succ 25mg Ext Rel Tab PO 11/04/23 20:59 12.5 mg BID HAN Administration Metronidazole 500 mg 10/07/23 22:00 10/10/23 15:18 Metronidazole 500 Mg Tab PO 10/11/23 03:59 500 mg Q8H HAN Administration Protocol Multivitamins/Minerals 1 tab 10/03/23 09:00 10/10/23 09:45 Cerovite Adv Formula Tab PO 11/02/23 08:59 1 tab DAILY HAN Administration Pantoprazole Sodium 40 mg 10/03/23 06:30 10/10/23 05:33 Pantoprazole 40 Mg Tab PO 11/02/23 06:29 40 mg DAILYBB HAN Administration Polyethylene Glycol 17 gm 10/04/23 09:00 10/06/23 08:30 Polyethylene (Miralax) 17 Gm Pack PO 11/03/23 08:59 Not Given DAILY HAN Potassium Chloride 20 meq 10/07/23 10:00 10/10/23 09:44 Potassium Chloride Crtab 20 Meq Tabcr PO 11/06/23 09:59 20 meq BID HAN Administration Raloxifene HCl 60 mg 10/03/23 09:00 10/10/23 09:45 Raloxifene Hcl 60 Mg Tab PO 11/02/23 08:59 60 mg QAM HAN Administration (3) Right upper lobe pneumonia Aspiration pneumonia type: unspecified Pneumonia type: aspiration pneumonia Qualified Code(s): J69.0 - Pneumonitis due to inhalation of food and vomit
--- NOTE | 2023-10-11 07:09 | XRay Report ---
XR chest 1V portable HISTORY: 83 years-old Female f/u acute shortness of breath COMPARISON: 10/09/2023 TECHNIQUE: AP view of the chest FINDINGS: Cardiac silhouette is enlarged. Atherosclerosis of the aorta. Mixed interstitial and alveolar opaciti es redemonstrated. Pulmonary vascular congestion. Probable trace pleural effusions. No pneumothorax. Degenerative changes of the shoulders and spine. IMPRESSION: 1. Cardiomegaly with unchanged pulmonary edema. 2. Patchy bilateral airspace opacities are stable suggestive of pneumonia. ACT 112: Negative or not required by law. The above report was generated using voice recognition software. It may contain grammatical, syntax o r spelling errors. Electronically signed by: Tulio Leroy M.D. 10/11/2023 7:07 AM
[2023-10-11 08:08] LABS: Hematocrit (blood only) 29.5 % (37.0-47.0); Hemoglobin 9.4 g/dl (12.0-16.0); Mean Corpuscular Hgb Conc 31.9 g/dL (32.0-36.0); Mean Platelet Volume 11.7 fL (9.4-12.4); Platelet Count 278 K/uL (130-400); RDW Coefficient of Variation 17.5 % (11.5-14.5); RDW Standard Deviation 58.2 fL (36.4-46.3); Red Blood Count 3.24 M/uL (4.20-5.40); White Blood Count 5.06 K/ul (4.8-10.8)
[2023-10-11 08:31] LABS: BUN Creatinine Ratio 21.7 (10-20); Calcium 9.4 mg/dl (8.6-10.3); Creatinine Clr Calc Pharmacy 24.5 ml/min; Est GFR (African American) 24.9 ml/min; Est GFR (Non-African American) 21.4 ml/min; Magnesium 2.1 mg/dl (1.7-2.4); Phosphorus 3.4 mg/dl (2.5-4.9); Potassium 4.6 mmol/L (3.5-5.1)
--- NOTE | 2023-10-11 08:41 | Pulmonology Progress Note ---
Date of Service October 11, 2023 Assessment & Plan (1) Right upper lobe pneumonia: Aspiration pneumonia type: unspecified Pneumonia type: aspiration pneumonia Qualified Code(s): J69.0 - Pneumonitis due to inhalation of food and vomit (2) RADHA (obstructive sleep apnea): (3) Right heart failure: (4) Cor pulmonale (chronic): (5) CKD (chronic kidney disease): Plan Chest CT 10/03/2023 personally reviewed: Patchy opacities in the right upper lobe Dependent atelectasis bilateral lower lobes Cardiomegaly No significant mediastinal lymphadenopathy, mild right hilar lymphadenopathy 2D echo 10/04/2023: EF 55-60%, grade 1 diastolic dysfunction, RV normal in size and function, mild TR --Right upper lobe pneumonia Respiratory bio fire negative for everything Urine Legionella negative Nasal MRSA negative BNP 210 at the time of presentation, 220 08/23/1823 CRP 4.39 Procalcitonin 0.34 --Acute hypoxic respiratory failure Multifactorial Right upper lobe pneumonia Morbid obesity with dependent atelectasis leading to VQ mismatch BiPAP nightly and as needed shortness of breath Keep O2 saturation between 90-92% --Obesity Advised to lose weight diet and exercise Plan: In/out: - 800 mL, urine output 1150, + 4 L since coming to the hospital Chest x-ray from today shows minimal improvement compared to before. Recommend being judicious with IV fluids and try keeping the patient negative balance. Would recommend to aim for at least negative 1 liters on a daily basis BUN and creatinine are trending down. Will give 1 mg of Bumex today. Consider another milligram at night if the urine output is not adequate Follow sputum culture, incentive spirometry will be beneficial BiPAP nightly and as needed shortness of breath Recommend out of the bed to chair. Case was discussed with RN Please note the above document was generated using voice recognition software. It may contain grammatical, syntax or spelling errors.Any formal questions or concerns about the content, text or information contained within the body of this dictation should be directly addressed to the provider for clarification. Admission and Anticipated Discharge Date Admission Date: October 02, 2023 Subjective Patient seen and examined at bedside. No acute distress, no adverse events overnight. Patient was saturating 100% on 2 L nasal cannula. I discontinued the nasal cannula. Overall she says she is feeling still the same which is generalized lethargy. Coughing up clear phlegm. No hemoptysis Denies any chest pain. Had 1 soft bowel movement today. Nephrology note from yesterday reviewed Review of Systems 2 Review of Systems: All systems reviewed & are unremarkable except as noted in HPI & below Physical Exam 2 Physical Exam: Constitutional: No acute distress HEENT: EOMI, PERRLA Respiratory system: Decreased air entry bilaterally, no wheeze, no rhonchi, p ositive crackles bilaterally more on the right lower side CVS: S1-S2 positive, no murmurs or gallops Abdomen: Soft, nontender, nondistended, positive bowel sounds x4, obese Extremities: +2 pulses bilaterally radialis/ dorsalis pedis, no cyanosis, +2 pitting edema bilateral lower extremity Neuro: Awake alert oriented x3 Psych: Normal mood and affect G/U: Positive Wallace Skin: no rashes, warm and dry Lymphatic: no cervical or axillary lymphadenopathy Results & Data Results & Data Vital Signs (Past 12 Hours) Vital Signs Temp Pulse Pulse Resp BP BP Pulse Ox 10/11/23 07:44 10/11/23 07:20 36.6 C 104 H 18 106/67 97 10/11/23 03:18 36.6 C 77 18 102/64 99 10/10/23 23:53 36.5 C 73 18 105/65 94 10/10/23 23:00 65 10/10/23 21:00 O2 Del Method O2 Flow Rate 10/11/23 07:44 Room Air 10/11/23 07:20 Nasal Cannula 2 10/11/23 03:18 Nasal Cannula 2 10/10/23 23:53 Nasal Cannula 2 10/10/23 23:00 10/10/23 21:00 Nasal Cannula Laboratory Results 10/11/23 07:37 10/11/23 07:37 PG Care Time/CCT Total # of Minutes Spent Total Time Spent with Patient: Total time spent is greater than 50% in coordination of care (as documented) at patient's floor/unit and/or counseling patient: Coding Level of Care Code 87613 SUB INP/OBS CARE 3/50MIN Diagnoses Aspiration pneumonia of right upper lobe, unspecified aspiration pneumonia type J69.0 Aspiration pneumonia type: unspecified Pneumonia type: aspiration pneumonia RADHA (obstructive sleep apnea) G47.33 Right heart failure I50.810 Cor pulmonale (chronic) I27.81 CKD (chronic kidney disease) N18.9
[2023-10-11] MEDS: BUMETANIDE 1 MG in SYRINGE 0 ML IV ONE (10:01)
--- NOTE | 2023-10-11 10:12 | Nephrology Progress Note ---
Date of Service October 11, 2023 Assessment & Plan (1) JULIO (acute kidney injury): Plan: patient with some baseline CKD--fluctuating creat but recent baseline around 1.2. Creatinine is stable at 2.3-2.4. stable nonoliguric stage 2 julio -had bumex 10/10 2 mg IV and was 1.1L negative; had 1 mg bumex today > so far 800 mL negative. off of IV meds now >standing bumex 1 mg tid >> goal 1.5 L negative daily x 3 >daily BMP >f/u pulmonary recs (2) Acute hypoxic respiratory failure: Plan: multifactorial > RUL PNA, RHF, OHVS. ON RA now. judicious diuretics as above (3) Right upper lobe pneumonia: Plan: On Abx. Improving and now on RA Admission and Anticipated Discharge Date Admission Date: October 02, 2023 Subjective no interval clinical events. denies worsening sob or edema; still quite weak; has not been oob today Review of Systems 2 Review of Systems: All systems reviewed & are unremarkable except as noted in Subjective Physical Exam 2 Constitutional: well developed, well nourished, + morbidly obese and + frail appearing Eyes: EOM intact bilaterally ENMT: Ears: no external ear abnormality Nose: no external nose abnormality Mouth: + dry oral mucous membranes Neck: no nuchal rigidity Respiratory: normal respiratory effort and + paradoxical thoraco-abdominal movement Auscultation: + diminished lung sounds and + crackles (bibasilar R>L) Gastrointestinal (Abdomen): Inspection/Auscultation: normal bowel sounds P ercussion/Palpation: abdomen soft; abdomen nontender Musculoskeletal: Extremities: strength 5/5 throughout Skin: no rashes, warm and dry Psychiatric: Orientation: oriented to person and oriented to place Results & Data Vital Signs (Past 12 Hours) Vital Signs Temp Pulse Pulse Resp BP BP Pulse Ox 10/11/23 07:44 10/11/23 07:20 36.6 C 104 H 18 106/67 97 10/11/23 03:18 36.6 C 77 18 102/64 99 10/10/23 23:53 36.5 C 73 18 105/65 94 10/10/23 23:00 65 O2 Del Method O2 Flow Rate 10/11/23 07:44 Room Air 10/11/23 07:20 Nasal Cannula 2 10/11/23 03:18 Nasal Cannula 2 10/10/23 23:53 Nasal Cannula 2 10/10/23 23:00 Laboratory Results 10/11/23 07:37 10/11/23 07:37 (3) Right upper lobe pneumonia Aspiration pneumonia type: unspecified Pneumonia type: aspiration pneumonia Qualified Code(s): J69.0 - Pneumonitis due to inhalation of food and vomit
--- NOTE | 2023-10-11 11:15 | Hospitalist Progress Note ---
Date of Service October 11, 2023 Assessment & Plan (1) Right upper lobe pneumonia: (2) Hypercalcemia: (3) Acute dehydration: (4) AMS (altered mental status): (5) Status post ORIF of fracture of ankle: (6) Right-sided congestive heart failure: (7) Cor pulmonale (chronic): (8) HTN (hypertension): (9) Mitral valve prolapse: (10) RADHA (obstructive sleep apnea): (11) Dyslipidemia: (12) Morbid obesity with BMI of 40.0-44.9, adult: (13) Chronic GERD: Plan Pt is an 83yoF with PMHx significant for R tib/fib fracture s/p ORIF with osteomyelitis on IV cefepime growing out proteus and pseudomonas in Jul 2023, alopecia areata, amaurosis fugax, RLS, right rotator cuff tendinopathy, prediabetes, CKDIII, hypertension, chronic right CHF, mitral valve prolapse, HLD, chronic lymphedema, RADHA, sacral insufficiency, L4 compression fracture with severe spinal stenosis, hx of COVID in Jun 2023, and osteoporosis presenting with weakness and altered mental status. RUL PNA Pt admitted with weakness and AMS No increased oxygen requirement No sepsis on admission- wbc wnl, no tachypnea or fever. Tachycardic. Lactate normal. Chest XRAY c/w of RUL pneumonia CT chest confirming pneumonia, reactive lymph nodes and pulm HTN MRSA nares negative Respiratory viral panel negative Blood Cx x2 negative sputum culture ordered but not collected Legionella negative Continue with Cefepime and azithromycin currently, Flagyl added for possible aspiration component. Consider HAP with recent discharge about a month prior. Mucinex, duonebs QID and Q2H prn, tessalon pearls, flutter, incentive spirometry Pt currently on RA Continue to monitor, provide respiratory support as needed CT chest obtained 10/03 - New interstitial and airspace opacities compatible with pneumonia. Reactive lymph nodes seen. Pulmonary hypertension is noted. Discussed w/ pulmonary med. - started diurese (received iv bumex) - (pt w/ julio and seen by nephrology, diuresis was held), cont. w/ incentive tess, finish abx, can use bipap HS and PRN Acute Encephalopathy Likely in setting of pneumonia infection above Head CT unremarkable UA without suggestion of infection Delirium precautions. Frequent reorientation, avoid sedating medication Continue to monitor Mental status improving Atrial Fibrillation Pt with new onset atrial fibrillation episode on 10/04 Hypotensive at the time 70s/40s, pt reporting dizziness however orienting, talking Fluid bolus, IV Lopressor 5mg Pt on Eliquis 2.5mg BID for DVT prophylaxis post orthopedic surgery in 2022 Received dose in AM, IV heparin ordered to begin in the evening urgent consult to cardiology- appreciate recs -no cardioversion at this time -po metoprolol tartrate initiation, 25mg BID -> switched to metoprolol succinate 12.5 mg bid pt converted to sinus rhythm later in the day per cardiology, resumed Eliquis- lower dose 2.5 bid (d/t renal function) Continue to monitor on telemetry Received fluid, hold diuretics for now JULIO Creatinine baseline from end of July 2023 was ~1.00 Cr elevated at 2.02 on admission Holding Bumex, spironolactone and metolazone- resume as soon as able for CHF noted below Renally reduce medications, avoid nephrotoxins/contrast Cautious fluid hydration as needed Continue to monitor Nephrology consulted - appreciate their input, gentle IV bicarb , replace K, hold diuretics, should stop metolazone on DC 10/09 started w/ diuretics as per discussion w/ pulm. Elevated Troponin hs trop elevated and downtrended 16.9 to 15.5 EKG with sinus tach and PACs Likely demand in setting of above Doubt ACS Cardiomegaly Bilateral Atrial Enlargement Pulmonary artery hypertension Diastolic CHF Chronic lower extremity edema Cardiomegaly and atrial enlargement noted on CT chest imaging Last echo 02/2022- noted normal atrial size, EF 50-55%, mild LVH Repeat echo-EF 50-55%, Grade I diastolic dysfunction Initially holding home spironolactone, metalozone and Bumex as above due to JULIO Daily weights, I and O's Resume meds as soon as able gentle hydration as needed for JULIO noted above 10/09 started back on diuretic, as above Dysphagia Difficulty swallowing Speech consult- appreciate recs Hypercalcemia Calcium 11.7, ionized 1.51 calcium level then improved Hydration as above , monitor, nephrology also on board Elevated INR INR elevated to 1.3 Pt on anticoagulation in the form of Eliquis for DVT prophylaxis Continue as noted below Hyperkalemia POC K+ noted to be 6.1 Currently wnl Continue to monitor Chronic Anemia Hgb of 10.2, down from baseline Pending iron, b12 and folate levels Continue home iron supplementation Continue to monitor Constipation Noted on CT abd/pelvis- moderate stool burden noted Started on bowel regimen of scheduled docusate 100mg BID and miralax daily. PRN glycerin suppository De-escalate regimen now as pt having bowel movements Noted pt on iron supplementation which can be constipating. S/p Right ORIF Hx of pseudomonas/proteus Scheduled to finish IV cefepime Q8H on 10/03 in evening per ID/ortho recs Will continue Cefepime for pneumonia above Continue Eliquis 2.5 mg daily for DVT ppx Also on aspirin 81mg daily small wound noted at R ankle - wound cultx obtained, wound care and discussed w/ orthopedics Dr. Garcia - follow up with wound care center as outpt and follow w/ orthopedics as outpt ID consulted - given hardware -recommend to continue with ciprofloxacin and amoxicillin (pls see full ID note for more detail) - dose then discussed with pharmacy given CKD Abnormal urine cultx - urine cultx positive for noel glabrata, no treatment recommended by ID HLD: Chronic, continue fenofibrate Depression: Chronic, stable, cont gabapentin and Lexapro Prediabetes: -a1c 5.6 on 08/16/23 GERD: Chronic, cont ppi, add H2 gary with improvement to dyspepsia, continue Osteoporosis On raloxifene DVT ppx: Eliquis FEN/GI: HH/soft bite sized CODE: DNR Dispo: From [facility] Admission and Anticipated Discharge Date Admission Date: October 02, 2023 Subjective Pt seen in follow up of pna, then developed afib w/ rvr - > converted to sinus Pt confused on admission, mental status seems to be improving Pt is sitting up in bed in NAD Denies any chest pain, shortness of breath, palpitations Pt has hx of ankle surg. and osteo - still has small wound at R ankle - wound cultx obtained, wound care and discussed w/ orthopedic surgery urine cultx posit. for noel glabrata - no treatment per ID Discussed w/ pulmonary - recommend diuretics (pt w/ JULIO and also seen by nephrology). started w/ diuretics (received iv bumex) and will cont. to closely monitor. Review of Systems Review of Systems: All systems reviewed & are unremarkable except as noted in Subjective Physical Exam Physical Exam: General: WD/WN in NAD HEENT: NC/AT, R pupil > L (chronic per niece) CV: rrr Resp: + rhonchi, no increased effort of breathing. on RA Abdomen: Soft, nontender, + bowel sounds Neuro: awake , able to answer most questions appropriately (per niece mental status improved), speech fluent, generally weak Extremities: edema in lower extremities bilaterally. Skin: No noted rashes or bruises Results & Data Results & Data Vital Signs (Past 12 Hours) Vital Signs Temp Pulse Resp BP BP Pulse Ox O2 Del Method 10/11/23 07:44 Room Air 10/11/23 07:20 36.6 C 104 H 18 106/67 97 Nasal Cannula 10/11/23 03:18 36.6 C 77 18 102/64 99 Nasal Cannula 10/10/23 23:53 36.5 C 73 18 105/65 94 Nasal Cannula O2 Flow Rate 10/11/23 07:44 10/11/23 07:20 2 10/11/23 03:18 2 10/10/23 23:53 2 Laboratory Results 10/11/23 Range/Units 07:37 WBC 5.06 (4.8-10.8) K/ul RBC 3.24 L (4.20-5.40) M/uL Hgb 9.4 L (12.0-16.0) g/dl Hct 29.5 L (37.0-47.0) % MCV 91.0 (80.0-100.0) fL MCH 29.0 (25.0-34.0) pg MCHC 31.9 L (32.0-36.0) g/dL RDW Std Deviation 58.2 H (36.4-46.3) fL RDW Coeff of Vicki 17.5 H (11.5-14.5) % Plt Count 278 (130-400) K/uL MPV 11.7 (9.4-12.4) fL Sodium 138 (136-145) mmol/L Potassium 4.6 (3.5-5.1) mmol/L Chloride 115 H (98-107) mmol/L Carbon Dioxide 16 L (21-32) mmol/L Anion Gap 7 (3-11) BUN 45 H (6-23) mg/dl Creatinine 2.07 H (0.6-1.2) mg/dl Est Cr Clr Drug Dosing 24.5 ml/min Est GFR ( Amer) 24.9 ml/min Est GFR (Non-Af Amer) 21.4 ml/min BUN/Creatinine Ratio 21.7 H (10-20) Glucose 101 H (70-99(Fasting)) mg/dl Calcium 9.4 (8.6-10.3) mg/dl Phosphorus 3.4 (2.5-4.9) mg/dl Magnesium 2.1 (1.7-2.4) mg/dl Medications Administered Current Inpatient Medications Acetaminophen (Acetaminophen 325 Mg Tab) 650 mg PO Q4H PRN PRN Reason: Moderate Pain (Scale 4, 5, 6) Stop: 11/01/23 15:41 Last Admin: 10/09/23 08:38 Dose: 650 mg Apixaban (Apixaban 2.5 Mg Tab) 2.5 mg PO BID [facility] Stop: 11/03/23 20:59 Last Admin: 10/11/23 09:37 Dose: 2.5 mg Aspirin (Aspirin 81 Mg Ectab) [facility] [place]: 11/02/23 08:59 Last Admin: 10/11/23 09:37 Dose: 81 mg Benzonatate (Benzonatate 100 Mg Capsule) 100 mg PO TID [facility] Stop: 11/01/23 20:59 Last Admin: 10/11/23 09:37 Dose: 100 mg Docusate Sodium (Docusate Sodium 100 Mg Cap) 100 mg PO BID [facility] Stop: 11/03/23 08:59 Last Admin: 10/06/23 08:32 Dose: Not Given Escitalopram Oxalate (Escitalopram Oxalate 10 Mg Tab) [facility] [place]: 11/02/23 08:59 Last Admin: 10/11/23 09:37 Dose: 10 mg Ferrous Sulfate (Ferrous Sulfate 325 Mg Tab) 325 mg PO QAM [facility] Stop: 11/02/23 08:59 Last Admin: 10/11/23 09:37 Dose: 325 mg Gabapentin (Gabapentin 100 Mg Cap) 100 mg PO BID [facility] Stop: 11/01/23 20:59 Last Admin: 10/11/23 09:37 Dose: 100 mg Glycerin (Glycerin Adult 12 Supp/Box Supp) 1 supp VT DAILY PRN PRN Reason: Constipation Stop: 11/03/23 03:54 Guaifenesin (Guaifenesin 600 Mg Tabcr) 1,200 mg PO Q12 [facility] Stop: 11/01/23 20:59 Last Admin: 10/11/23 09:36 Dose: 1,200 mg Guaifenesin/Dextromethorphan (Guaifenesin/Dextrom Syrup 200mg/20mg 10ml Udc) 10 ml PO Q4H PRN PRN Reason: Cough Stop: 11/01/23 15:58 Bumetanide 1 mg/ Syringe 4 mls @ 4 mls/min IV TID [facility] Stop: 11/10/23 13:59 Lactobacillus Acidophilus (Advanced Probiotic 1250 Mg Capsule) 2 cap PO QAM [facility] Stop: 11/02/23 08:59 Last Admin: 10/11/23 09:37 Dose: 2 cap Magnesium Oxide (Magnesium Oxide 400 Mg Tab) 400 mg PO BID [facility] Stop: 11/04/23 16:24 Last Admin: 10/11/23 09:36 Dose: 400 mg Metoprolol Succinate (Metoprolol Succ 25mg Ext Rel Tab) 12.5 mg PO BID [facility] Stop: 11/04/23 20:59 Last Admin: 10/11/23 09:36 Dose: 12.5 mg Multivitamins/Minerals (Cerovite Adv Formula Tab) 1 tab PO DAILY [facility] Stop: 11/02/23 08:59 Last Admin: 10/11/23 09:37 Dose: 1 tab Ondansetron HCl (Ondansetron Inj 2 Mg/Ml 2 Ml Vial) 4 mg IV Q4H PRN PRN Reason: Nausea And Vomiting Stop: 11/01/23 15:41 Pantoprazole Sodium (Pantoprazole 40 Mg Tab) 40 mg PO DAILYBB [facility] Stop: 11/02/23 06:29 Last Admin: 10/11/23 06:53 Dose: 40 mg Polyethylene Glycol (Polyethylene (Miralax) 17 Gm Pack) 17 gm PO DAILY [facility] Stop: 11/03/23 08:59 Last Admin: 10/06/23 08:30 Dose: Not Given Potassium Chloride (Potassium Chloride Crtab 20 Meq Tabcr) 20 meq PO BID [facility] Stop: 11/06/23 09:59 Last Admin: 10/11/23 09:36 Dose: 20 meq Raloxifene HCl (Raloxifene Hcl 60 Mg Tab) 60 mg PO QAM [facility] Stop: 11/02/23 08:59 Last Admin: 10/11/23 09:37 Dose: 60 mg (1) Right upper lobe pneumonia Aspiration pneumonia type: unspecified Pneumonia type: aspiration pneumonia Qualified Code(s): J69.0 - Pneumonitis due to inhalation of food and vomit
[2023-10-11] MEDS: AMOXICILLIN 500 MG CAP PO SCH (15:06)
[2023-10-11] MEDS: BUMETANIDE 1 MG in SYRINGE 0 ML IV SCH (15:07)
[2023-10-11] MEDS: CIPROFLOXACIN 500 MG TAB PO SCH (15:07)
[2023-10-11] MEDS: MICONAZOLE NITRATE POWDER 85 GM EXT PRN (21:07)
[2023-10-12 06:14] LABS: Hematocrit (blood only) 30.6 % (37.0-47.0); Hemoglobin 9.2 g/dl (12.0-16.0); Mean Corpuscular Hemoglobin 28.1 pg (25.0-34.0); Mean Corpuscular Hgb Conc 30.1 g/dL (32.0-36.0); Mean Corpuscular Volume 93.6 fL (80.0-100.0); Mean Platelet Volume 11.8 fL (9.4-12.4); Platelet Count 286 K/uL (130-400); RDW Coefficient of Variation 17.2 % (11.5-14.5); Red Blood Count 3.27 M/uL (4.20-5.40); White Blood Count 4.76 K/ul (4.8-10.8)
[2023-10-12 06:22] LABS: BUN Creatinine Ratio 22.9 (10-20); Calcium 9.5 mg/dl (8.6-10.3); Creatinine Clr Calc Pharmacy 28.3 ml/min; Est GFR (African American) 29.6 ml/min; Est GFR (Non-African American) 25.6 ml/min; Phosphorus 3.3 mg/dl (2.5-4.9); Potassium 4.7 mmol/L (3.5-5.1)
--- NOTE | 2023-10-12 08:40 | Nephrology Progress Note ---
Date of Service October 12, 2023 Assessment & Plan (1) JULIO (acute kidney injury): Plan: patient with some baseline CKD--fluctuating creat but recent baseline around 1.2. Creatinine had been plateau'd at 2.3-2.4, but on 10/12 after more intense standing diuretics, creat improved to 1.8. improving nonoliguric stage 2 julio -had bumex 10/10 2 mg IV and was 1.1L negative; had 1 mg bumex today > so far 800 mL negative. off of IV meds now >continue standing bumex 1 mg tid >> goal 1.5 L negative daily x 3 >daily BMP >f/u pulmonary recs care coordinated w/ Dr Ward (2) Acute hypoxic respiratory failure: Plan: multifactorial > RUL PNA, RHF, OHVS. ON RA now. judicious diuretics as above (3) Right upper lobe pneumonia: Plan: On Abx. Improving and now on RA Admission and Anticipated Discharge Date Admission Date: October 02, 2023 Subjective seen on midday rounds; refusing PT; tired. denies sob. does c/o L lateral anterior chest versus LUQ pain, not pleuritic, no N. can't tell me how long present Review of Systems 2 Review of Systems: All systems reviewed & are unremarkable except as noted in Subjective Physical Exam 2 Constitutional: well developed, well nourished, + morbidly obese, + frail appearing and + lethargic Eyes: EOM intact bilaterally ENMT: Ears: no external ear abnormality Nose: no external nose abnormality Mouth: + dry oral mucous membranes Neck: no nuchal rigidity Respiratory: normal respiratory effort and + paradoxical thoraco-abdominal movement Auscultation: + diminished lung sounds Gastrointestinal (Abdomen): Inspection/Auscultation: normal bowel sounds P ercussion/Palpation: abdomen soft; abdomen nontender Musculoskeletal: Extremities: strength 5/5 throughout Skin: no rashes, warm and dry Psychiatric: Orientation: oriented to person and oriented to place Results & Data Vital Signs (Past 12 Hours) Vital Signs Temp Pulse Pulse Pulse Resp BP Pulse Ox 10/12/23 08:03 36.6 C 73 16 117/72 95 10/12/23 03:00 36.6 C 82 18 133/76 93 10/11/23 23:06 36.4 C L 70 18 125/82 96 10/11/23 22:00 57 L O2 Del Method 10/12/23 08:03 Room Air 10/12/23 03:00 Room Air 10/11/23 23:06 Room Air 10/11/23 22:00 Laboratory Results 10/12/23 04:44 10/12/23 04:44 (3) Right upper lobe pneumonia Aspiration pneumonia type: unspecified Pneumonia type: aspiration pneumonia Qualified Code(s): J69.0 - Pneumonitis due to inhalation of food and vomit
--- NOTE | 2023-10-12 12:54 | Pulmonology Progress Note ---
Date of Service October 12, 2023 Assessment & Plan (1) Right upper lobe pneumonia: Aspiration pneumonia type: unspecified Pneumonia type: aspiration pneumonia Qualified Code(s): J69.0 - Pneumonitis due to inhalation of food and vomit (2) RADHA (obstructive sleep apnea): (3) Right heart failure: (4) Cor pulmonale (chronic): (5) CKD (chronic kidney disease): Plan Chest CT 10/03/2023 personally reviewed: Patchy opacities in the right upper lobe Dependent atelectasis bilateral lower lobes Cardiomegaly No significant mediastinal lymphadenopathy, mild right hilar lymphadenopathy 2D echo 10/04/2023: EF 55-60%, grade 1 diastolic dysfunction, RV normal in size and function, mild TR --Right upper lobe pneumonia Respiratory bio fire negative for everything Urine Legionella negative Nasal MRSA negative BNP 210 at the time of presentation, 220 08/23/1823 CRP 4.39 Procalcitonin 0.34 --Acute hypoxic respiratory failure Multifactorial Right upper lobe pneumonia Morbid obesity with dependent atelectasis leading to VQ mismatch BiPAP nightly and as needed shortness of breath Keep O2 saturation between 90-92% --Obesity Advised to lose weight diet and exercise Plan: In/out: -1.5 L, urine output 2024, + 2.7 L since coming to the hospital Diuresing well, continue with the recommended regimen as per nephrology Unfortunately we do not have sputum collected yet as she is not able to bring anything up. Completed the course of cefepime. Currently on amoxicillin and ciprofloxacin as Chronic suppressive antibiotics Recommend out of the bed to chair. No further recommendation from pulmonary perspective, will sign off Please call directly with any questions Please note the above document was generated using voice recognition software. It may contain grammatical, syntax or spelling errors.Any formal questions or concerns about the content, text or information contained within the body of this dictation should be directly addressed to the provider for clarification. Admission and Anticipated Discharge Date Admission Date: October 02, 2023 Subjective Patient seen and examined at bedside. No acute distress, no adverse events overnight. She is urinating well. Saturating 96-97% on room air. Had 1 bowel movement today. Denies any abdominal pain. Has been using incentive spirometry Review of Systems 2 Review of Systems: All systems reviewed & are unremarkable except as noted in Subjective Physical Exam 2 Physical Exam: Constitutional: No acute distress HEENT: EOMI, PERRLA Respiratory system: Decreased air entry bilaterally, no wheeze, no rhonchi, p ositive crackles bilaterally more on the right lower side CVS: S1-S2 positive, no murmurs or gallops Abdomen: Soft, nontender, nondistended, positive bowel sounds x4, obese Extremities: +2 pulses bilaterally radialis/ dorsalis pedis, no cyanosis, +2 pitting edema bilateral lower extremity Neuro: Awake alert oriented x3 Psych: Normal mood and affect G/U: Positive Wallace Skin: no rashes, warm and dry Lymphatic: no cervical or axillary lymphadenopathy Results & Data Results & Data Vital Signs (Past 12 Hours) Vital Signs Temp Pulse Pulse Resp BP BP Pulse Ox 10/12/23 12:23 36.5 C 69 16 126/82 97 10/12/23 09:00 10/12/23 08:03 36.6 C 73 16 117/72 95 10/12/23 03:00 36.6 C 82 18 133/76 93 O2 Del Method 10/12/23 12:23 Room Air 10/12/23 09:00 Room Air 10/12/23 08:03 Room Air 10/12/23 03:00 Room Air Laboratory Results 10/12/23 04:44 10/12/23 04:44 PG Care Time/CCT Total # of Minutes Spent Total Time Spent with Patient: Total time spent is greater than 50% in coordination of care (as documented) at patient's floor/unit and/or counseling patient: Coding Level of Care Code 26510 SUB INP/OBS CARE 2/35MIN Diagnoses Aspiration pneumonia of right upper lobe, unspecified aspiration pneumonia type J69.0 Aspiration pneumonia type: unspecified Pneumonia type: aspiration pneumonia RADHA (obstructive sleep apnea) G47.33 Right heart failure I50.810 Cor pulmonale (chronic) I27.81 CKD (chronic kidney disease) N18.9
--- NOTE | 2023-10-12 13:31 | Hospitalist Progress Note ---
Date of Service October 12, 2023 Assessment & Plan (1) Right upper lobe pneumonia: (2) Hypercalcemia: (3) Acute dehydration: (4) AMS (altered mental status): (5) Status post ORIF of fracture of ankle: (6) Right-sided congestive heart failure: (7) Cor pulmonale (chronic): (8) HTN (hypertension): (9) Mitral valve prolapse: (10) RADHA (obstructive sleep apnea): (11) Dyslipidemia: (12) Morbid obesity with BMI of 40.0-44.9, adult: (13) Chronic GERD: Plan Pt is an 83yoF with PMHx significant for R tib/fib fracture s/p ORIF with osteomyelitis on IV cefepime growing out proteus and pseudomonas in Jul 2023, alopecia areata, amaurosis fugax, RLS, right rotator cuff tendinopathy, prediabetes, CKDIII, hypertension, chronic right CHF, mitral valve prolapse, HLD, chronic lymphedema, RADHA, sacral insufficiency, L4 compression fracture with severe spinal stenosis, hx of COVID in Jun 2023, and osteoporosis presenting with weakness and altered mental status. RUL PNA Pt admitted with weakness and AMS No increased oxygen requirement No sepsis on admission- wbc wnl, no tachypnea or fever. Tachycardic. Lactate normal. Chest XRAY c/w RUL pneumonia CT chest confirming pneumonia, reactive lymph nodes and pulm HTN MRSA nares negative Respiratory viral panel negative Blood Cx x2 negative sputum culture ordered but not collected Legionella negative Completed treatment with Cefepime On cipro and amoxicillin for chronic suppression Pulmonology consulted- appreciate recs Cardiomegaly Bilateral Atrial Enlargement Pulmonary artery hypertension Diastolic CHF Chronic lower extremity edema Cardiomegaly and atrial enlargement noted on CT chest imaging Last echo 02/2022- noted normal atrial size, EF 50-55%, mild LVH Repeat echo-EF 50-55%, Grade I diastolic dysfunction Initially holding home spironolactone, metalozone and Bumex due to JULIO- currently on IV Bumex 1mg TID per nephrology Daily weights, I and O's Resume meds as soon as able gentle hydration as needed for JULIO Acute Encephalopathy Likely in setting of pneumonia infection above Head CT unremarkable UA without suggestion of infection Delirium precautions. Frequent reorientation, avoid sedating medication Continue to monitor Currently AAOx3 Atrial Fibrillation Pt with new onset atrial fibrillation episode on 10/04 Hypotensive at the time 70s/40s, pt reporting dizziness however orienting, talking Fluid bolus, IV Lopressor 5mg Pt on Eliquis 2.5mg BID for DVT prophylaxis post orthopedic surgery in 2022 urgent consult to cardiology- appreciate recs -no cardioversion at this time -po metoprolol tartrate initiation, 25mg BID -> switched to metoprolol succinate 12.5 mg bid pt converted to sinus rhythm later in the day per cardiology, resume Eliquis- lower dose 2.5 bid (d/t renal function) Continue to monitor on telemetry Acute on chronic kidney disease Creatinine baseline from end of July 2023 was ~1.00 Cr elevated at 2.02 on admission Holding Bumex, spironolactone and metolazone- resume as soon as able for CHF noted below currently on IV Bumex 1mg TID Renally reduce medications, avoid nephrotoxins/contrast Cautious fluid hydration as needed Continue to monitor Nephrology consulted - appreciate their input, gentle IV bicarb , replace K, should stop metolazone on DC Cr currently improved Elevated Troponin hs trop elevated and downtrended 16.9 to 15.5 EKG with sinus tach and PACs Likely demand in setting of above Doubt ACS Dysphagia Difficulty swallowing Speech consult- appreciate recs Hypercalcemia Calcium 11.7, ionized 1.51 calcium level then improved Hydration as above , monitor, nephrology also on board Elevated INR INR elevated to 1.3 Pt on anticoagulation in the form of Eliquis for DVT prophylaxis Continue as noted above Hyperkalemia POC K+ noted to be 6.1 on admission Currently wnl Continue to monitor Chronic Anemia Hgb of 10.2, down from baseline Iron, b12 and folate levels all wnl Continue home iron supplementation Continue to monitor Constipation Noted on CT abd/pelvis- moderate stool burden noted Started on bowel regimen of scheduled docusate 100mg BID and miralax daily. PRN glycerin suppository Pt with BM on 10/09 Regimen resumed S/p Right ORIF Hx of pseudomonas/proteus Scheduled to finish IV cefepime Q8H on 10/03 in evening per ID/ortho recs Will continue Cefepime for pneumonia above Continue Eliquis 2.5 mg daily for DVT ppx Also on aspirin 81mg daily small wound noted at R ankle - wound cultx obtained, wound care and discussed w/ orthopedics Dr. Garcia - follow up with wound care center as outpt and follow w/ orthopedics as outpt ID consulted - given hardware -recommend to continue with ciprofloxacin and amoxicillin (pls see full ID note for more detail) - dose then discussed with pharmacy by previous provider given CKD Abnormal urine cultx - urine cultx positive for noel glabrata, no treatment recommended by ID HLD: Chronic, continue fenofibrate Depression: Chronic, stable, cont gabapentin and Lexapro Prediabetes: -a1c 5.6 on 08/16/23 GERD: Chronic, cont ppi, add H2 gary with improvement to dyspepsia, continue Osteoporosis On raloxifene DVT ppx: Eliquis FEN/GI: HH/soft bite sized CODE: DNR Dispo: From [facility] Admission and Anticipated Discharge Date Admission Date: October 02, 2023 Subjective Pt was seen laying in bed. AAOx3. Has been refusing PT. Review of Systems Review of Systems: All systems reviewed & are unremarkable except as noted in Subjective Physical Exam Physical Exam: General: Alert, orientedx3. Skin: No noted rashes or bruises Psych: Appropriate mood and affect Neuro: weak, decreased strength bilaterally HEENT: NC/AT CV: RRR Resp: Breath sounds clear bilaterally, no increased effort of breathing. Abdomen: Soft Extremities: edema in lower extremities bilaterally. Results & Data Results & Data Vital Signs (Past 12 Hours) Vital Signs Temp Pulse Pulse Resp BP BP Pulse Ox 10/12/23 12:23 36.5 C 69 16 126/82 97 10/12/23 09:00 10/12/23 08:03 36.6 C 73 16 117/72 95 10/12/23 03:00 36.6 C 82 18 133/76 93 O2 Del Method 10/12/23 12:23 Room Air 10/12/23 09:00 Room Air 10/12/23 08:03 Room Air 10/12/23 03:00 Room Air (1) Right upper lobe pneumonia Aspiration pneumonia type: unspecified Pneumonia type: aspiration pneumonia Qualified Code(s): J69.0 - Pneumonitis due to inhalation of food and vomit
[2023-10-13 06:13] LABS: Hematocrit (blood only) 30.6 % (37.0-47.0); Hemoglobin 9.3 g/dl (12.0-16.0); Mean Corpuscular Hemoglobin 28.4 pg (25.0-34.0); Mean Corpuscular Hgb Conc 30.4 g/dL (32.0-36.0); Mean Corpuscular Volume 93.3 fL (80.0-100.0); Mean Platelet Volume 11.6 fL (9.4-12.4); Platelet Count 278 K/uL (130-400); RDW Coefficient of Variation 17.4 % (11.5-14.5); RDW Standard Deviation 59.3 fL (36.4-46.3); Red Blood Count 3.28 M/uL (4.20-5.40); White Blood Count 4.81 K/ul (4.8-10.8)
[2023-10-13 06:32] LABS: BUN Creatinine Ratio 24.5 (10-20); Calcium 9.3 mg/dl (8.6-10.3); Creatinine Clr Calc Pharmacy 32.6 ml/min; Est GFR (African American) 35.3 ml/min; Est GFR (Non-African American) 30.4 ml/min; Magnesium 1.9 mg/dl (1.7-2.4); Phosphorus 3.2 mg/dl (2.5-4.9); Potassium 4.5 mmol/L (3.5-5.1)
[2023-10-13] MEDS: CIPROFLOXACIN 500 MG TAB PO SCH (11:11)
--- NOTE | 2023-10-13 11:53 | Hospitalist Progress Note ---
Date of Service October 13, 2023 Assessment & Plan (1) Right upper lobe pneumonia: (2) Hypercalcemia: (3) Acute dehydration: (4) AMS (altered mental status): (5) Status post ORIF of fracture of ankle: (6) Right-sided congestive heart failure: (7) Cor pulmonale (chronic): (8) HTN (hypertension): (9) Mitral valve prolapse: (10) RADHA (obstructive sleep apnea): (11) Dyslipidemia: (12) Morbid obesity with BMI of 40.0-44.9, adult: (13) Chronic GERD: Plan Pt is an 83yoF with PMHx significant for R tib/fib fracture s/p ORIF with osteomyelitis on IV cefepime growing out proteus and pseudomonas in Jul 2023, alopecia areata, amaurosis fugax, RLS, right rotator cuff tendinopathy, prediabetes, CKDIII, hypertension, chronic right CHF, mitral valve prolapse, HLD, chronic lymphedema, RADHA, sacral insufficiency, L4 compression fracture with severe spinal stenosis, hx of COVID in Jun 2023, and osteoporosis presenting with weakness and altered mental status. RUL PNA Pt admitted with weakness and AMS No increased oxygen requirement No sepsis on admission- wbc wnl, no tachypnea or fever. Tachycardic. Lactate normal. Chest XRAY c/w RUL pneumonia CT chest confirming pneumonia, reactive lymph nodes and pulm HTN MRSA nares negative Respiratory viral panel negative Blood Cx x2 negative sputum culture ordered but not collected Legionella negative Completed treatment with Cefepime On cipro and amoxicillin for chronic suppression for right ankle wound (see below) Pulmonology consulted- appreciate recs Cardiomegaly Bilateral Atrial Enlargement Pulmonary artery hypertension Diastolic CHF Chronic lower extremity edema Cardiomegaly and atrial enlargement noted on CT chest imaging Last echo 02/2022- noted normal atrial size, EF 50-55%, mild LVH Repeat echo-EF 50-55%, Grade I diastolic dysfunction Initially holding home spironolactone, metalozone and Bumex due to JULIO- currently on IV Bumex 1mg TID per nephrology Daily weights, I and O's Resume meds as soon as able gentle hydration as needed for JULIO Acute Encephalopathy Likely in setting of pneumonia infection above Head CT unremarkable UA without suggestion of infection Delirium precautions. Frequent reorientation, avoid sedating medication Continue to monitor Currently AAOx3 Atrial Fibrillation Pt with new onset atrial fibrillation episode on 10/04 Hypotensive at the time 70s/40s, pt reporting dizziness however orienting, talking Fluid bolus, IV Lopressor 5mg Pt on Eliquis 2.5mg BID for DVT prophylaxis post orthopedic surgery in 2022 urgent consult to cardiology- appreciate recs -no cardioversion at this time -po metoprolol tartrate initiation, 25mg BID -> switched to metoprolol succinate 12.5 mg bid pt converted to sinus rhythm later in the day per cardiology, resume Eliquis- lower dose 2.5 bid (d/t renal function) Continue to monitor on telemetry Acute on chronic kidney disease Creatinine baseline from end of July 2023 was ~1.00 Cr elevated at 2.02 on admission Holding Bumex, spironolactone and metolazone- resume as soon as able for CHF noted below Currently on IV Bumex 1mg TID , consider transition to po per nephrology recs Renally reduce medications, avoid nephrotoxins/contrast Cautious fluid hydration as needed Continue to monitor Nephrology consulted - appreciate their input, gentle IV bicarb , replace K, should stop metolazone on DC Cr currently improved Elevated Troponin hs trop elevated and downtrended 16.9 to 15.5 EKG with sinus tach and PACs Likely demand in setting of above Doubt ACS Dysphagia Difficulty swallowing Speech consult- appreciate recs Hypercalcemia Calcium 11.7, ionized 1.51 calcium level then improved Hydration as above , monitor, nephrology also on board Elevated INR INR elevated to 1.3 Pt on anticoagulation in the form of Eliquis for DVT prophylaxis Continue as noted above Hyperkalemia POC K+ noted to be 6.1 on admission Currently wnl Continue to monitor Chronic Anemia Hgb of 10.2, down from baseline Iron, b12 and folate levels all wnl Continue home iron supplementation Continue to monitor Constipation Noted on CT abd/pelvis- moderate stool burden noted Started on bowel regimen of scheduled docusate 100mg BID and miralax daily. PRN glycerin suppository Pt with BM on 10/09 Regimen resumed S/p Right ORIF Hx of pseudomonas/proteus Scheduled to finish IV cefepime Q8H on 10/03 in evening per ID/ortho recs Will continue Cefepime for pneumonia above Continue Eliquis 2.5 mg daily for DVT ppx Also on aspirin 81mg daily small wound noted at R ankle - wound cultx obtained, wound care and discussed w/ orthopedics Dr. Garcia - follow up with wound care center as outpt and follow w/ orthopedics as outpt ID consulted - given hardware -recommend to continue with ciprofloxacin and amoxicillin (pls see full ID note for more detail) - dose then discussed with pharmacy by previous provider given CKD Abnormal urine cultx - urine cultx positive for noel glabrata, no treatment recommended by ID HLD: Chronic, continue fenofibrate Depression: Chronic, stable, cont gabapentin and Lexapro Prediabetes: -a1c 5.6 on 08/16/23 GERD: Chronic, cont ppi, add H2 gary with improvement to dyspepsia, continue Osteoporosis On raloxifene DVT ppx: Eliquis FEN/GI: HH/soft bite sized CODE: DNR Dispo: From [facility] Admission and Anticipated Discharge Date Admission Date: October 02, 2023 Subjective pt was seen while having a BM near the bed. Denied acute concers. Encouraged to work with PT. Review of Systems Review of Systems: All systems reviewed & are unremarkable except as noted in Subjective Physical Exam Physical Exam: General: Alert, orientedx3. Skin: No noted rashes or bruises Psych: Appropriate mood and affect Neuro: weak, decreased strength bilaterally HEENT: NC/AT CV: RRR Resp: Breath sounds clear bilaterally, no increased effort of breathing. Abdomen: Soft Extremities: edema in lower extremities bilaterally. Results & Data Results & Data Vital Signs (Past 12 Hours) Vital Signs Temp Pulse Pulse Pulse Resp BP BP 10/13/23 11:49 36.4 C L 55 L 18 128/74 10/13/23 09:00 10/13/23 07:52 36.5 C 67 16 113/67 10/13/23 07:04 64 10/13/23 03:32 36.4 C L 68 18 139/73 10/12/23 23:57 36.5 C 66 18 105/67 Pulse Ox O2 Del Method O2 Flow Rate 10/13/23 11:49 96 Room Air 10/13/23 09:00 Room Air 10/13/23 07:52 100 Nasal Cannula 2 10/13/23 07:04 10/13/23 03:32 100 Nasal Cannula 2 10/12/23 23:57 97 Room Air (1) Right upper lobe pneumonia Aspiration pneumonia type: unspecified Pneumonia type: aspiration pneumonia Qualified Code(s): J69.0 - Pneumonitis due to inhalation of food and vomit
--- NOTE | 2023-10-13 12:08 | Nephrology Progress Note ---
Date of Service October 13, 2023 Assessment & Plan (1) JULIO (acute kidney injury): Plan: patient with some baseline CKD--fluctuating creat but recent baseline around 1.2. Creatinine had been plateau'd at 2.3-2.4, but on 10/12 after more intense standing diuretics, creat improved to 1.8. improving nonoliguric stage 2 julio. nagma from frequent BM w/ c diff >continue standing bumex 1 mg tid >> goal 1 L negative daily x 3 >> today would be 3rd day; then anticipate change to torsemide 100 mg daily >daily BMP >f/u pulmonary recs (2) Acute hypoxic respiratory failure: Plan: multifactorial > RUL PNA, RHF, OHVS. ON RA now. judicious diuretics as above (3) Right upper lobe pneumonia: Plan: On Abx. Improving and now on RA Admission and Anticipated Discharge Date Admission Date: October 02, 2023 Subjective seen on evening rounds. denies sob or uncontrolled pain; cannot recall whether or not she had supper this evening or whether she was out of bed. Review of Systems 2 Review of Systems: All systems reviewed & are unremarkable except as noted in Subjective Physical Exam 2 Constitutional: well developed, well nourished, + morbidly obese, + frail appearing and + lethargic Eyes: EOM intact bilaterally ENMT: Ears: no external ear abnormality Nose: no external nose abnormality Mouth: + dry oral mucous membranes Neck: no nuchal rigidity Respiratory: normal respiratory effort Auscultation: + diminished lung sounds Gastrointestinal (Abdomen): Inspection/Auscultation: normal bowel sounds P ercussion/Palpation: abdomen soft; abdomen nontender Musculoskeletal: Extremities: strength 5/5 throughout Skin: no rashes, warm and dry Psychiatric: Orientation: oriented to person and oriented to place Results & Data Vital Signs (Past 12 Hours) Vital Signs Temp Pulse Pulse Resp BP BP Pulse Ox 10/13/23 11:49 36.4 C L 55 L 18 128/74 96 10/13/23 09:00 10/13/23 07:52 36.5 C 67 16 113/67 100 10/13/23 07:04 64 10/13/23 03:32 36.4 C L 68 18 139/73 100 O2 Del Method O2 Flow Rate 10/13/23 11:49 Room Air 10/13/23 09:00 Room Air 10/13/23 07:52 Nasal Cannula 2 10/13/23 07:04 10/13/23 03:32 Nasal Cannula 2 Laboratory Results 10/13/23 05:38 10/13/23 05:38 (3) Right upper lobe pneumonia Aspiration pneumonia type: unspecified Pneumonia type: aspiration pneumonia Qualified Code(s): J69.0 - Pneumonitis due to inhalation of food and vomit
[2023-10-14 05:23] LABS: Hematocrit (blood only) 31.1 % (37.0-47.0); Hemoglobin 9.6 g/dl (12.0-16.0); Mean Corpuscular Hemoglobin 28.7 pg (25.0-34.0); Mean Corpuscular Hgb Conc 30.9 g/dL (32.0-36.0); Mean Corpuscular Volume 93.1 fL (80.0-100.0); Mean Platelet Volume 11.4 fL (9.4-12.4); Platelet Count 302 K/uL (130-400); RDW Coefficient of Variation 17.3 % (11.5-14.5); Red Blood Count 3.34 M/uL (4.20-5.40); White Blood Count 4.42 K/ul (4.8-10.8)
[2023-10-14 05:30] LABS: BUN Creatinine Ratio 24.3 (10-20); Calcium 9.5 mg/dl (8.6-10.3); Creatinine Clr Calc Pharmacy 36.1 ml/min; Est GFR (African American) 39.9 ml/min; Est GFR (Non-African American) 34.4 ml/min; Magnesium 1.9 mg/dl (1.7-2.4); Phosphorus 3.5 mg/dl (2.5-4.9); Potassium 4.4 mmol/L (3.5-5.1)
--- NOTE | 2023-10-14 15:02 | Hospitalist Progress Note ---
Date of Service October 14, 2023 Assessment & Plan (1) Right upper lobe pneumonia: (2) Hypercalcemia: (3) Acute dehydration: (4) AMS (altered mental status): (5) Status post ORIF of fracture of ankle: (6) Right-sided congestive heart failure: (7) Cor pulmonale (chronic): (8) HTN (hypertension): (9) Mitral valve prolapse: (10) RADHA (obstructive sleep apnea): (11) Dyslipidemia: (12) Morbid obesity with BMI of 40.0-44.9, adult: (13) Chronic GERD: Plan Pt is an 83yoF with PMHx significant for R tib/fib fracture s/p ORIF with osteomyelitis on IV cefepime growing out proteus and pseudomonas in Jul 2023, alopecia areata, amaurosis fugax, RLS, right rotator cuff tendinopathy, prediabetes, CKDIII, hypertension, chronic right CHF, mitral valve prolapse, HLD, chronic lymphedema, RADHA, sacral insufficiency, L4 compression fracture with severe spinal stenosis, hx of COVID in Jun 2023, and osteoporosis presenting with weakness and altered mental status. RUL PNA Pt admitted with weakness and AMS No increased oxygen requirement No sepsis on admission- wbc wnl, no tachypnea or fever. Tachycardic. Lactate normal. Chest XRAY c/w RUL pneumonia CT chest confirming pneumonia, reactive lymph nodes and pulm HTN MRSA nares negative Respiratory viral panel negative Blood Cx x2 negative sputum culture ordered but not collected Legionella negative Completed treatment with Cefepime On cipro and amoxicillin for chronic suppression for right ankle wound (see below) Pulmonology consulted- appreciate recs Cardiomegaly Bilateral Atrial Enlargement Pulmonary artery hypertension Diastolic CHF Chronic lower extremity edema Cardiomegaly and atrial enlargement noted on CT chest imaging Last echo 02/2022- noted normal atrial size, EF 50-55%, mild LVH Repeat echo-EF 50-55%, Grade I diastolic dysfunction Initially holding home spironolactone, metalozone and Bumex due to JULIO Was started on IV Bumex 1mg TID per nephrology . -recommending discharge with torsemide 100mg daily with Kcl 10mEq daily. Acute on chronic kidney disease Creatinine baseline from end of July 2023 was ~1.00 Cr elevated at 2.02 on admission Held home Bumex, spironolactone and metolazone on admission Renally reduced medications, avoided nephrotoxins/contrast Cautious fluid hydration as needed Nephrology was consulted - appreciate their input, gentle IV bicarb , replace K, should stop metola zone on DC -recommending discharge with torsemide 100mg daily with Kcl 10mEq daily. Cr currently improved to 1.40 Acute Encephalopathy Likely in setting of pneumonia infection above Head CT unremarkable UA without suggestion of infection Delirium precautions. Frequent reorientation, avoid sedating medication Continue to monitor Currently AAOx3 Atrial Fibrillation Pt with new onset atrial fibrillation episode on 10/04 Hypotensive at the time 70s/40s, pt reporting dizziness however orienting, talking Fluid bolus, IV Lopressor 5mg Pt on Eliquis 2.5mg BID for DVT prophylaxis post orthopedic surgery in 2022 urgent consult to cardiology- appreciate recs -no cardioversion at this time -po metoprolol tartrate initiation, 25mg BID -> switched to metoprolol succinate 12.5 mg bid pt converted to sinus rhythm later in the day per cardiology, resume Eliquis- lower dose 2.5 bid (d/t renal function) Continue to monitor on telemetry, currently rate and rhythm controlled Elevated Troponin hs trop elevated and downtrended 16.9 to 15.5 EKG with sinus tach and PACs Likely demand in setting of above Doubt ACS Dysphagia Difficulty swallowing Speech consult- appreciate recs Hypercalcemia Calcium 11.7, ionized 1.51 calcium level then improved Hydration as above , monitor, nephrology also on board Elevated INR INR elevated to 1.3 Pt on anticoagulation in the form of Eliquis for DVT prophylaxis Continue as noted above Hyperkalemia POC K+ noted to be 6.1 on admission Currently wnl Continue to monitor Chronic Anemia Hgb of 10.2, down from baseline Iron, b12 and folate levels all wnl Continue home iron supplementation Continue to monitor Constipation Noted on CT abd/pelvis- moderate stool burden noted Started on bowel regimen of scheduled docusate 100mg BID and miralax daily. PRN glycerin suppository Pt with BM on 10/09 Regimen resumed S/p Right ORIF Hx of pseudomonas/proteus Scheduled to finish IV cefepime Q8H on 10/03 in evening per ID/ortho recs Will continue Cefepime for pneumonia above Continue Eliquis 2.5 mg daily for DVT ppx Also on aspirin 81mg daily small wound noted at R ankle - wound cultx obtained, wound care and discussed w/ orthopedics Dr. Garcia - follow up with wound care center as outpt and follow w/ orthopedics as outpt ID consulted - given hardware -recommend to continue with ciprofloxacin and amoxicillin (pls see full ID note for more detail) - dose then discussed with pharmacy by previous provider given CKD Abnormal urine cultx - urine cultx positive for noel glabrata, no treatment recommended by ID HLD: Chronic, continue fenofibrate Depression: Chronic, stable, cont gabapentin and Lexapro Prediabetes: -a1c 5.6 on 08/16/23 GERD: Chronic, cont ppi, add H2 gary with improvement to dyspepsia, continue Osteoporosis On raloxifene DVT ppx: Eliquis FEN/GI: HH/soft bite sized CODE: DNR Dispo:Going to [facility] Admission and Anticipated Discharge Date Admission Date: October 02, 2023 Subjective Pt was seen sitting in bed. Denied acute concerns. Review of Systems Review of Systems: All systems reviewed & are unremarkable except as noted in Subjective Physical Exam Physical Exam: General: Alert, orientedx3. Skin: No noted rashes or bruises Psych: Appropriate mood and affect Neuro: weak, decreased strength bilaterally HEENT: NC/AT CV: RRR Resp: Breath sounds clear bilaterally, no increased effort of breathing. Abdomen: Soft Extremities: edema in lower extremities bilaterally. Results & Data Results & Data Vital Signs (Past 12 Hours) Vital Signs Temp Pulse Pulse Pulse Resp BP Pulse Ox 10/14/23 13:00 36.5 C 68 15 99/60 L 98 10/14/23 09:10 36.6 C 69 16 95/59 L 100 10/14/23 07:04 68 10/14/23 04:02 36.6 C 64 18 122/73 100 O2 Del Method O2 Flow Rate 10/14/23 13:00 Room Air 10/14/23 09:10 Nasal Cannula 2 10/14/23 07:04 10/14/23 04:02 Nasal Cannula 2 (1) Right upper lobe pneumonia Aspiration pneumonia type: unspecified Pneumonia type: aspiration pneumonia Qualified Code(s): J69.0 - Pneumonitis due to inhalation of food and vomit
--- NOTE | 2023-10-14 16:26 | Nephrology Progress Note ---
Date of Service October 14, 2023 Assessment & Plan (1) JULIO (acute kidney injury): Plan: patient with some baseline CKD--fluctuating creat but recent baseline around 1.2. Creatinine had been plateau'd at 2.3-2.4, but on 10/12 after more intense standing diuretics, creat improved to 1.4. improving nonoliguric stage 2 julio. nagma from frequent BM w/ c diff Will sign off NEPH D/C RECS >torsemide 100 mg daily >potassium 20 mEq daily >bmp weekly x 3 at facility >nephro hospital d/c appt any physician [place] with UACM, prot/creat ratio, albumin/creat ratio, BMP, CBC to be done 2-3 days before appt (2) Acute hypoxic respiratory failure: Plan: multifactorial > RUL PNA, RHF, OHVS. ON RA now. judicious diuretics as above (3) Right upper lobe pneumonia: Plan: On Abx. Improving and now on RA Admission and Anticipated Discharge Date Admission Date: October 02, 2023 Subjective no interval events. cont to refuse PT. no sob, no n/v > eating when I saw her. no edema Review of Systems 2 Review of Systems: All systems reviewed & are unremarkable except as noted in Subjective Physical Exam 2 Constitutional: well developed, well nourished, + morbidly obese and + frail appearing Eyes: EOM intact bilaterally ENMT: Ears: no external ear abnormality Nose: no external nose abnormality Mouth: + dry oral mucous membranes Neck: no nuchal rigidity Respiratory: normal respiratory effort and + paradoxical thoraco-abdominal movement Auscultation: + diminished lung sounds Gastrointestinal (Abdomen): Inspection/Auscultation: normal bowel sounds P ercussion/Palpation: abdomen soft; abdomen nontender Musculoskeletal: Extremities: strength 5/5 throughout Skin: no rashes, warm and dry Psychiatric: Orientation: oriented to person and oriented to place Results & Data Vital Signs (Past 12 Hours) Vital Signs Temp Pulse Pulse Resp BP Pulse Ox O2 Del Method 10/14/23 16:16 56 L 10/14/23 16:05 36.3 C L 63 18 132/75 94 Room Air 10/14/23 13:00 36.5 C 68 15 99/60 L 98 Room Air 10/14/23 09:10 36.6 C 69 16 95/59 L 100 Nasal Cannula 10/14/23 07:04 68 O2 Flow Rate 10/14/23 16:16 10/14/23 16:05 10/14/23 13:00 10/14/23 09:10 2 10/14/23 07:04 Laboratory Results 10/14/23 04:47 10/14/23 04:47 (3) Right upper lobe pneumonia Aspiration pneumonia type: unspecified Pneumonia type: aspiration pneumonia Qualified Code(s): J69.0 - Pneumonitis due to inhalation of food and vomit
[2023-10-15 05:01] LABS: Hematocrit (blood only) 29.1 % (37.0-47.0); Hemoglobin 9.2 g/dl (12.0-16.0); Mean Corpuscular Hemoglobin 28.8 pg (25.0-34.0); Mean Corpuscular Hgb Conc 31.6 g/dL (32.0-36.0); Mean Corpuscular Volume 90.9 fL (80.0-100.0); Mean Platelet Volume 11.4 fL (9.4-12.4); Platelet Count 293 K/uL (130-400); RDW Coefficient of Variation 17.5 % (11.5-14.5); RDW Standard Deviation 57.7 fL (36.4-46.3); White Blood Count 5.09 K/ul (4.8-10.8)
[2023-10-15 05:20] LABS: BUN Creatinine Ratio 25.2 (10-20); Calcium 9.4 mg/dl (8.6-10.3); Creatinine Clr Calc Pharmacy 39.9 ml/min; Est GFR (African American) 44.9 ml/min; Est GFR (Non-African American) 38.7 ml/min; Magnesium 1.8 mg/dl (1.7-2.4); Potassium 4.3 mmol/L (3.5-5.1)
[2023-10-15 08:25] VITALS: O2SAT 92
[2023-10-15] MEDS: TORSEMIDE 100 MG TAB PO SCH (08:37)
[2023-10-15] MEDS: POTASSIUM CHLORIDE CRTAB 20 MEQ TABCR PO SCH (08:37)
[2023-10-15 11:56] VITALS: BP 129/80; RESP 15; TEMP 97.9
--- NOTE | 2023-10-15 13:39 | Discharge Summary ---
Discharge Summary Date of Service October 15, 2023 Notes For Next Care Provider Was seen by Nephrology who made some changes to her medications. Also seen by infectious disease who recommend daily use of antibiotics (chronic suppressive therapy) until she follows up with them in 2 months. Please ensure follow up with Nephrology after discharge Please ensure follow up with Infectious Disease after discharge Medication Changes From Visit Discontinue home bumex, metolazone, spironolactone per nephrology Started on torsemide by nephrology Potassium supplement decreased to daily use by nephrology Per ID, continue with suppressive amoxicillin and cipro therapy until follow up with them in 2 months. Admission HPI Per Admitting Provider This is a 83 yo F with PMHX of R tib/fib s/p ORIF with osteomyelitis on cefepime IV for growing out proteus and pseudomonas in Jul 2023, alopecia areata, amaurosis fugax, RLS, right rotator cuff tendinopathy, prediabetes, CKDIII, hypertension, chronic right CHF, mitral vlave prolapse, HLD, chronic lymphedema, , RADHA, sacral insufficiency fracure in May 2018, L4 compression fracture with severe spinal stenosis, hx of COVID in Jun 2023, and osteoporosis who presents to the hospital with worsening altered mental status and weakness. At baseline she is AAO x 3. Pt cannot answer simple questions during my exam but asks for a drink, which she gulps down at bedside. Pt denies any acute pain. She denies fever, chills. Pt knows a tomlinson catheter has been inserted. She does not know where she is currently. Per nursing staff at [facility], pt was her normal self yesterday morning. She has an episode of knees buckling yesterday around lunch time. She had developed some shaking yesterday afternoon and there were plans to discharge her home soon as she was to complete Cefepime on 10/03 in the evening for the Right ankle wound, and pt began getting anxious. Last evening she had difficulty even st anding up out of her chair, where normally is only requiring supervision, and she required a lift to get her into bed. This morning the same nurse was in to give antibiotics, but she appeared flushed, and reported "just not feeling well". Pt again was shakey and weak. Pt was having trouble with feeding herself today, but has not normally had this in the past. No special diet, no thickened liquids. Nursing denies any cough, sputum production, fever. Pt does wear O2 at 2L HS at baseline. Her pulse was noted to be 102 this morning there with vitals, but other vitals normal. Pt was confused for them this morning but could not simple orientation questions. Pt at baseline holds a conversation easily, sets own breakfast trays, would require assistance getting dressed minimally. Archana is the nurse who I spoke with on the phone at [facility] facility. Admission Exam Per Admitting Provider General: awake, alert, unable to answer my questions, appears confused, no apparent distress, white, obese female Head: Normocephalic, atraumatic ENT: PERRL, EOMI, no pharyngeal exudate, mucous membranes + dry Chest: Diminished breath sounds throughout to auscultation, on room air with O2 sats at 96%, no adventitious breath sounds Cardiac: Regular rate and rhythm, +murmur, no JVD, normal peripheral pulses, goo d capillary refill Abdominal: NABS x 4 quadrants, soft, nondistended, nontender to palpation, no rebound or guarding Extremities: + lymphedema bilateral LE, no erythema, R lateral ankle with small wound present without surrounding erythema, calfs nontender to palpation Psych: Normal mood and affect Neuro: awake, alert, not oriented, strength intact bilaterally and rated 4/5, no motor deficits, speech is fairly clear, slow, no peripheral sensory deficits Principal Dx & Hospital Course #1 = Principal Diagnosis (1) Right upper lobe pneumonia: (2) Hypercalcemia: (3) Acute dehydration: (4) AMS (altered mental status): (5) Status post ORIF of fracture of ankle: (6) Right-sided congestive heart failure: (7) Cor pulmonale (chronic): (8) HTN (hypertension): (9) Mitral valve prolapse: (10) RADHA (obstructive sleep apnea): (11) Dyslipidemia: (12) Morbid obesity with BMI of 40.0-44.9, adult: (13) Chronic GERD: Plan Pt is an 83yoF with PMHx significant for R tib/fib fracture s/p ORIF with osteomyelitis on IV cefepime growing out proteus and pseudomonas in Jul 2023, alopecia areata, amaurosis fugax, RLS, right rotator cuff tendinopathy, prediabetes, CKDIII, hypertension, chronic right CHF, mitral valve prolapse, HLD, chronic lymphedema, RADHA, sacral insufficiency, L4 compression fracture with severe spinal stenosis, hx of COVID in Jun 2023, and osteoporosis presenting with weakness and altered mental status. RUL PNA Pt admitted with weakness and AMS No increased oxygen requirement No sepsis on admission- wbc wnl, no tachypnea or fever. Tachycardic. Lactate normal. Chest XRAY c/w RUL pneumonia CT chest confirming pneumonia, reactive lymph nodes and pulm HTN MRSA nares negative Respiratory viral panel negative Blood Cx x2 negative sputum culture ordered but not collected Legionella negative Completed treatment with Cefepime On cipro and amoxicillin for chronic suppression for right ankle wound (see below) Pulmonology was consulted as well. Symptoms resolved on discharge. S/p Right ORIF Hx of pseudomonas/proteus Scheduled to finish IV cefepime Q8H on 10/03 in evening per ID/ortho recs Will continue Cefepime for pneumonia above Continue Eliquis 2.5 mg daily for DVT ppx Also on aspirin 81mg daily small wound noted at R ankle - wound cultx obtained, wound care and discussed w/ orthopedics Dr. Garcia - follow up with wound care center as outpt and follow w/ orthopedics as outpt ID consulted - given hardware -recommend to continue with ciprofloxacin and amoxicillin - dose then discussed with pharmacy by previous provider given CKD Pt discharged with amoxicillin 500mg TID and ciprofloxacin 500mg BID x 2 months until follow up with ID. Cardiomegaly Bilateral Atrial Enlargement Pulmonary artery hypertension Diastolic CHF Chronic lower extremity edema Cardiomegaly and atrial enlargement noted on CT chest imaging Last echo 02/2022- noted normal atrial size, EF 50-55%, mild LVH Repeat echo-EF 50-55%, Grade I diastolic dysfunction Initially holding home spironolactone, metolazone and Bumex due to JULIO Was started on IV Bumex 1mg TID per nephrology . -recommending discharge with torsemide 100mg daily with KCl 10mEq daily. Acute on chronic kidney disease Creatinine baseline from end of July 2023 was ~1.00 Cr elevated at 2.02 on admission Held home Bumex, spironolactone and metolazone on admission Renally reduced medications, avoided nephrotoxins/contrast Cautious fluid hydration as needed Nephrology was consulted - appreciate their input, gentle IV bicarb , replace K, should stop metolazone on DC -recommending discharge with torsemide 100mg daily with KCl 10mEq daily. Cr currently improved to 1.27 on discharge Acute Encephalopathy Likely in setting of pneumonia infection above Head CT unremarkable UA without suggestion of infection Delirium precautions. Frequent reorientation, avoid sedating medications Currently AAOx3 on discharge Atrial Fibrillation Pt with new onset atrial fibrillation episode on 10/04 Hypotensive at the time 70s/40s, pt reporting dizziness however orienting, talking Fluid bolus, IV Lopressor 5mg Pt on Eliquis 2.5mg BID for DVT prophylaxis post orthopedic surgery in 2022 Consult to cardiology- appreciate recs -no cardioversion at this time -po metoprolol tartrate initiation, 25mg BID -> switched to metoprolol succinate 12.5 mg bid pt converted to sinus rhythm later in the day per cardiology, resume Eliquis- lower dose 2.5 bid (d/t renal function) Rate and rhythm controlled on discharge Elevated Troponin hs trop elevated and downtrended 16.9 to 15.5 EKG with sinus tach and PACs Likely demand in setting of above Doubt ACS Dysphagia Difficulty swallowing Speech consult- appreciate recs Hypercalcemia Calcium 11.7, ionized 1.51 calcium level then improved Hydration as above Nephrology follow up Elevated INR INR elevated to 1.3 Pt on anticoagulation in the form of Eliquis for DVT prophylaxis Continue as noted above Hyperkalemia POC K+ noted to be 6.1 on admission Currently wnl Continue to monitor Chronic Anemia Hgb of 10.2, down from baseline Iron, b12 and folate levels all wnl Continue home iron supplementation Continue to monitor hgb Constipation Noted on CT abd/pelvis- moderate stool burden noted Started on bowel regimen of scheduled docusate 100mg BID and miralax daily. PRN glycerin suppository Continue to monitor Abnormal urine cultx - urine cultx positive for noel glabrata, no treatment recommended by ID HLD: Chronic, continue fenofibrate Depression: Chronic, stable, cont gabapentin and Lexapro Prediabetes: -a1c 5.6 on 08/16/23 GERD: Chronic, cont ppi, add H2 gary with improvement to dyspepsia, continue Osteoporosis On raloxifene Discharge Exam General: Alert, orientedx3. Skin: No noted rashes or bruises Psych: Appropriate mood and affect Neuro: weak, decreased strength bilaterally HEENT: NC/AT CV: RRR Resp: Breath sounds clear bilaterally, no increased effort of breathing. Abdomen: Soft Extremities: edema in lower extremities bilaterally. Updated Medication List Medication Instructions Recorded Confirmed Type aspirin 81 mg tablet,delayed 81 mg PO QAM 05/05/18 10/02/23 History release omega 5-vex-ioe-fish oil 1,000 mg 1 cap PO TIDM 05/05/18 10/02/23 History (120 mg-180 mg) capsule (Fish Oil) raloxifene 60 mg tablet 60 mg PO QAM osteoporosis 05/05/18 10/02/23 History fenofibrate 160 mg tablet 160 mg PO DAILY 12/30/19 10/02/23 History omeprazole 40 mg capsule,delayed 40 mg PO DAILYBB 12/30/19 10/02/23 History release dextromethorphan-guaifenesin 10 10 ml PO Q4H PRN Cough 03/16/22 10/02/23 History mg-100 mg/5 mL oral liquid (Tussin DM) lorazepam 0.5 mg tablet 0.5 mg PO HS 03/16/22 10/02/23 History vit C 250 mg-vit E 90 mg-zinc 40 1 tab PO BID 03/16/22 10/02/23 History mg-copper 1 gi-fjiwxs-kgwjlz capsule (PreserVision AREDS-2) atropine 1 % eye drops 1 drp OPR Q8H PRN Excessive tearing 07/12/23 10/02/23 History escitalopram oxalate 10 mg tablet 10 mg PO QAM 07/12/23 10/02/23 History ferrous sulfate 142 mg (45 mg 142 mg PO QAM 07/12/23 10/02/23 History iron) tablet,extended release gabapentin 100 mg capsule 100 mg PO BID 07/12/23 10/02/23 History guaifenesin 600 mg tablet, 600 mg PO BID PRN Congestion 07/12/23 10/02/23 His tory extended release 12 hr (Mucus Relief ER) apixaban 2.5 mg tablet (Eliquis) 2.5 mg PO BID #60 tabs 07/18/23 10/02/23 Rx L.acidop,casei,lactis,rham-B.lact,karen 2 cap PO QAM 10/02/23 10/02/23 History 625 mg (10 billion cell) capsule (Advanced Probiotic) Protein Liquid 30 ml PO BID r/t wound support 10/02/23 10/02/23 History acetaminophen 325 mg tablet 650 mg PO Q6H PRN fever/pain 10/02/23 10/02/23 History (Tylenol) bisacodyl 10 mg rectal suppository 10 mg KY DAILY PRN Constipation 10/02/23 10/02/23 History (Dulcolax (bisacodyl)) loperamide 2 mg capsule 2 mg PO Q3H PRN Diarrhea 10/02/23 10/02/23 History magnesium hydroxide 400 mg/5 mL 2,400 mg PO DAILY PRN Constipation 10/02/23 10/02/23 History oral suspension (Milk of Magnesia) oxymetazoline 0.05 % nasal spray See Rx Instructions .Route 10/02/23 10/02/23 History .COMPLEX PRN nose bleed sodium phosphates 19 gram-7 118 ml KY DAILY PRN Constipation 10/02/23 10/02/23 History gram/118 mL enema (Enema) amoxicillin 500 mg capsule 500 mg PO TID #90 caps 10/15/23 Rx ciprofloxacin HCl 500 mg tablet 500 mg PO BID #60 tabs 10/15/23 Rx metoprolol succinate 25 mg 12.5 mg (1/2 x 25 mg) PO BID #30 10/15/23 Rx tablet,extended release 24 hr tabs potassium chloride 20 mEq 20 meq PO DAILY #30 tabs 10/15/23 Rx tablet,extended release(part/cryst) torsemide 100 mg tablet 100 mg PO QAM #30 tabs 10/15/23 Rx Hospital Stay Data Consultations 10/02/23 13:23 ED Decision to Admit Stat 10/04/23 09:34 Consult Cardiology Routine 10/06/23 14:01 Consult Orthopedic Surgery Routine 10/08/23 18:23 Consult Pulmonology Routine 10/08/23 18:26 Consult Infectious Diseases Routine Diagnostic Imagining Performed 10/02/23 09:32 CT abd pelvis wo con Stat CT head/brain wo con Stat 10/03/23 09:52 CT chest diagnostic wo con Urgent Abdomen/Pelvis CT 10/02/23 09:32 CT OF THE ABDOMEN AND PELVIS WITHOUT CONTRAST CLINICAL HISTORY: lower abd pain, AMS, elevated creatinine COMPARISON STUDY: CT of the abdomen and pelvis December 29, 2021. TECHNIQUE: Axial images of the abdomen and pelvis were obtained without IV contrast. Images were reviewed in the axial, sagittal, and coronal planes. Automated exposure control was utilized for the study. A dose lowering technique was utilized adhering to the principles of ALARA. FINDINGS: No pneumatosis, free air or portal venous gas is present. There is moderate cardiomegaly. There are no renal, ureteral or bladder calculi. There is mild dilatation of the bilateral collecting systems. Bladder is moderately distended. Evaluation of the remainder of the abdomen and pelvis is suboptimal as unenhanced exam. Liver, spleen, adrenal glands and pancreas are unremarkable. There is no biliary or pancreatic ductal dilatation. No peripancreatic or pericholecystic stranding is present there is no evidence for a bowel obstruction. Moderate amount of stool within the rectum. No acute fractures are identified. L3 and L4 kyphoplasty are noted. Vertebral body height loss at the L3 level with retropulsion has progressed since prior CT. There are no suspicious osseous lesions IMPRESSION: 1. No urinary calculi. Mild bilateral collecting system dilatation, likely related to bladder distention. 2. No bowel obstruction. No bowel wall thickening on unenhanced exam. Moderate amount of stool within the rectum. ACT 112: Negative or not required by law. Electronically signed by: Lan Wilcox M.D. 10/02/2023 10:26 AM Chest X-Ray 10/02/23 09:32 XR chest 1V portable CLINICAL HISTORY: weakness COMPARISON STUDY: Chest CT March 16, 2022. Chest radiograph August 16, 2023. FINDINGS: There is no pneumothorax or pleural effusion. There is cardiomegaly without overt pulmonary edema. Moderate right upper lobe airspace opacity is present. Linear right basilar opacity favors atelectasis. IMPRESSION: Right upper lobe airspace opacities suggestive of pneumonia. Post treatment radiographs to ensure resolution are recommended. ACT 112: Negative or not required by law. Electronically signed by: Lan Wilcox M.D. 10/02/2023 10:[address] 10/02/23 09:32 CT OF THE HEAD WITHOUT CONTRAST CLINICAL HISTORY: Altered mental status. COMPARISON STUDY: Head CT September 18, 2017. TECHNIQUE: Helical axial images of the head were obtained without IV contrast. Automated exposure control was utilized for the study. A dose lowering technique was utilized adhering to the principles of ALARA. FINDINGS: No acute intracranial hemorrhage, midline shift or mass effect is present. The ventricular system is unremarkable. White matter hypodensities favor small vessel disease. The basal cisterns are patent. No extra-axial collections are present. There are no findings to suggest acute dural sinus thrombosis or acute territorial infarct. No significant calvarial abnormalities are present. Visualized portions of the sinuses and mastoid air cells are clear. IMPRESSION: No acute intracranial findings. ACT 112: Negative or not required by law. Electronically signed by: Lan Wilcox M.D. 10/02/2023 10:[address] 10/03/23 09:52 CT chest diagnostic wo con CLINICAL HISTORY: pneumonia TECHNIQUE: Multidetector row helical CT of the chest was performed. Coronal and sagittal reformations were obtained. Automated dose lowering techniques and/or adjustment according to patient size were utilized for this exam. CT DOSE: 654.35 mGy.cm Comparison: Comparison is made to CT chest 03/16/2022 FINDINGS: Lungs and pleura: Atelectasis is seen with scattered airspace and interstitial thickening most prominent in the lower lobes and right upper lobe. This is significantly increased from prior exam Heart and pericardium: Cardiomegaly is seen with biatrial enlargement. Vessels: The pulmonary trunk is enlarged measuring 36 mm. There is mild atherosclerotic disease. Mediastinum and osorio: Subcentimeter lymph nodes are seen. Chest wall and lower neck: Unremarkable. Abdomen: Unremarkable. Bones: Mild degenerative changes are seen. IMPRESSION: New interstitial and airspace opacities compatible with pneumonia. Reactive lymph nodes seen. ACT 112: Negative or not required by law. Electronically signed by: Pancho Membreno M.D. 10/03/2023 11:10 AM Chest X-Ray 10/07/23 15:49 SINGLE VIEW CHEST CLINICAL HISTORY: Follow-up pneumonia FINDINGS: An AP, portable, upright chest radiograph is compared to study dated 10/02/2023 and correlated with chest CT dated 10/03/2023. The examination is degraded by portable technique and patient rotation. The heart is enlarged noting atherosclerotic calcification of the thoracic aorta. The pulmonary vasculature is noncongested. Chronic interstitial thickening is similar to previous. Airspace consolidation in the right upper lung is unchanged to modestly increased as compared to 10/02/2023. There is chronic elevation of the right hemidiaphragm. Scarring/atelectasis is noted at the left lung base. No large pleural effusion or pneumothorax is identified. The skeletal structures are osteopenic. The bony thorax is grossly intact. IMPRESSION: 1. Airspace consolidation in the right mid upper lung is unchanged to modestly increased from 10/02/2023. The appearance favors pneumonia/aspiration pneumonitis. Clinical correlation will be required and radiographic follow-up to resolution is recommended. 2. Cardiomegaly without radiographic evidence of congestive failure. ACT 112: Negative or not required by law. Electronically signed by: Felipe Perera M.D. 10/07/2023 4:40 PM Chest X-Ray 10/09/23 07:14 XR chest 1V portable CLINICAL HISTORY: f/u COMPARISON STUDY: Chest CT October 03, 2023. Chest radiograph October 07, 2023. FINDINGS: There is no pneumothorax or pleural effusion. Cardiomegaly is unchanged. Pulmonary vascular congestion is again noted. Multifocal right lung airspace opacities have mildly progressed. IMPRESSION: 1. Mild progression of right lung airspace opacities suggestive of pneumonia. 2. Cardiomegaly with suspected mild pulmonary edema. ACT 112: Negative or not required by law. Electronically signed by: Lan Wilcox M.D. 10/09/2023 7:40 AM Chest X-Ray 10/11/23 07:00 XR chest 1V portable HISTORY: 83 years-old Female f/u acute shortness of breath COMPARISON: 10/09/2023 TECHNIQUE: AP view of the chest FINDINGS: Cardiac silhouette is enlarged. Atherosclerosis of the aorta. Mixed interstitial and alveolar opacities redemonstrated. Pulmonary vascular congestion. Probable trace pleural effusions. No pneumothorax. Degenerative changes of the shoulders and spine. IMPRESSION: 1. Cardiomegaly with unchanged pulmonary edema. 2. Patchy bilateral airspace opacities are stable suggestive of pneumonia. ACT 112: Negative or not required by law. The above report was generated using voice recognition software. It may contain grammatical, syntax or spelling errors. Electronically signed by: Tulio Leroy M.D. 10/11/2023 7:07 AM Discharge Instructions Given to Patient (Per Discharging Provider) Ms. Clement, We are discharging you back for acute rehab. Your symptoms have resolved. You were seen by Nephrology who made some changes to your medications. Please take them as prescribed. You were also seen by infectious disease who recommend daily use of antibiotics until you follow up with them in 2 months. Please keep close follow up with your specialists after discharge. Please keep close follow up with your primary care provider as well after discharge. Please do not hesitate to come back to the emergency room if your symptoms worsen or return. It was a pleasure taking care of you while you were here. Total Time Total Time Spent Total Time Spent (In Minutes): > 30 minutes
[2023-10-15 13:54] VITALS: PULSE 69
--- NOTE | 2023-10-18 12:00 | Coding Query ---
CODING QUERY To promote full compliance with coding requirements relating to patient care, provider participation is requested in all cases of nurse navigator uncertainty. Please assist us with the question(s) below: Coding Question(s): Pt admitted with weakness and altered mental status, diagnosed with pneumonia. 10/11 and subsequent progress note mention Cefepine and azithromycin with the addition of Flagyl for possible aspiration. Please document, if known or suspected, the type of pneunonia that was treated during this hospital stay. Thanks for your help . Douglas Garcia [facility] Physician's Response(s): Uncertain etiology, possible aspiration pneumonia Principal Diagnosis: "that condition established after study, to be chiefly responsible for occasioning the admission of the patient to the hospital for care." Co-Existing Principal Diagnosis: "when two or more diagnoses equally meet the criteria for principal diagnosis as determined by the circumstances of admission, diagnostic work up, and/or therapy provided, and the Alphabetic Index, Tabular List, or another coding guideline does not provide sequencing direction, any one of the diagnoses may be sequenced first." "When the physician has documented what appears to be a current diagnosis in the body of the record, but has not included the diagnosis in the final diagnostic statement, the physician should be asked whether the diagnosis should be added." (Source Coding [facility] 2 QTR90. p3-4) [place]
== END 2023-10-15 14:56 | DRG 177 ==
LOC: ED 08:59 → SUATTDRO 13:38 → EDINP 13:38 → 2W 10-03 12:05

== ENCOUNTER 2023-11-21 15:03 | Inpatient (IN) ==
--- NOTE | 2023-11-21 16:17 | Emergency Department Note ---
Impression & Plan Acute lower GI bleeding, Anemia, Contusion of foot, left, Fall ED Provider Note NAME: ATIF PALMER AGE: 83 SEX: F : 1940 ARRIVES VIA: Ambulance INFORMANT: Patient, ED PROVIDER(S): Naveen Mccracken DO CHIEF COMPLAINT: Fall HPI: The patient is an 83-year-old female who presents to the emergency department with left foot pain. The patient has been having episodes of weakness and difficulty ambulating. She had a fall recently. She injured her left foot and her left ankle. She has had downtrending hemoglobin and was found to be heme positive. She was sent to the emergency department for possible blood transfusion. ROS: See above HPI for pertinent positives & negatives. A total of 10 systems reviewed and were otherwise negative. PAST MEDICAL HISTORY: See Below PAST SURGICAL HISTORY: See Below FAMILY HISTORY: See Below SOCIAL HISTORY: See Below HOME MEDICATIONS: See Below ALLERGIES: See Below VITALS: See Below PHYSICAL EXAMINATION: GENERAL: Patient is awake alert in no acute distress patient is resting comfortably and showing no signs of anxiety EYES: The conjunctivae are clear. The pupils are round and reactive. EARS, NOSE, MOUTH AND THROAT: The nose is without any evidence of any deformity. Mucous membranes are moist. NECK: The neck is nontender and supple. RESPIRATORY: Normal respiratory effort is noted there is no evidence of wheezing rhonchi or rales CARDIOVASCULAR: Regular rate and rhythm noted there no murmurs rubs or gallops normal S1 normal S2. GASTROINTESTINAL: The abdomen is soft. Abdomen is nontender. MUSCULOSKELETAL/EXTREMITIES: There is ecchymosis and swelling over the left foot as well as the left ankle. Range of motion elicits pain. There is no pain with range of motion testing of the left hip or left knee. SKIN: Skin is warm and dry. Trace pedal edema was noted bilaterally. NEUROLOGIC: Patient is awake alert and oriented x3 MEDICAL DECISION MAKING: The patient is an 83-year-old female who presented to the emergency department for an evaluation of generalized weakness and fall. The patient was having decreasing hemoglobin as noted by her outpatient provider. She has had heme positive stool. The patient initially did not wish to have an endoscopy which she eventually agreed to but then refused colonoscopy. She was finally agreeable to colonoscopy but then had worsening symptoms as well as a very low hemoglobin noted on outpatient labs. She was sent to the emergency department for further evaluation. I discussed the patient's laboratory and radiographic studies with her. There is no definite fracture noted by radiology on x-rays. Because of her findings I discussed this case with the on-call [facility] hospitalist. They have agreed to evaluate the patient and the emergency department for further management and disposition. Triage Nursing notes reviewed. Prior medical records reviewed Vital Signs: reviewed and remarkable for no significant abnormalities Differential diagnosis: Infection, dehydration, metabolic abnormality, hypo/hyperglycemia, electrolyte disturbance, anemia, hypoxia, cardiac sources, intracerebral event, toxicologic, neurologic, as well as other pathologies. ER treatment provided: See below Diagnostics interpreted by me: ECG: EKG was obtained in the emergency department. My interpretation is sinus rhythm at 90 bpm. First-degree AV block was noted. Nonspecific ST segment abnormalities noted. This was compared to a tracing from October 04, 2023. Sinus rhythm has replaced atrial fibrillation compared to the previous tracing Cardiac Monitoring: An order was placed for continuous cardiac monitoring. The monitor shows a rate of 72 bpm with sinus rhythm. Laboratory studies: As stated above and show below. Imaging studies: See below. Radiographic imaging was reviewed by myself Consultation(s): I discussed this case [facility] Past [facility]/Surg History Medical History Unspecified atrial fibrillation Metabolic encephalopathy History of pneumonia Difficulty in walking, not elsewhere classified Other fracture of right lower leg, subsequent encounter for closed fracture with routine healing Unspecified open wound, right ankle, subsequent encounter Proteus (mirabilis) (morganii) as the cause of diseases classified elsewhere Laceration without foreign body of left ear, subsequent encounter Cognitive communication deficit Dysphagia Wedge compression fracture of fourth lumbar vertebra with routine healing Stress fracture, pelvis, subsequent encounter for fracture with routine healing Weakness Pain in right leg Personal history of COVID-19 History of falling Other abnormalities of gait and mobility Pain in right hip Spinal stenosis, lumbosacral region Muscle weakness (generalized) Hyperlipidemia Hypoxemia Hypo-osmolality and hyponatremia Nocturnal hypoxia Right-sided congestive heart failure Sacral insufficiency fracture Cor pulmonale (chronic) Lumbar stenosis with neurogenic claudication Chronic GERD without esophagitis Right heart failure Dependence on nocturnal oxygen therapy RADHA (obstructive sleep apnea) Dyslipidemia Morbid obesity with BMI of 40.0-44.9, adult Mitral valve prolapse Osteoporosis Chronic acquired lymphedema HTN (hypertension) Chronic back pain Surgical History Hx of cholecystectomy Status post lumbar spine surgery for decompression of spinal cord 2017 Dr. Wan Status post kyphoplasty L3, L4, L5 2018 Dr. 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 Beliefs That Will Affect Care: None marital status: Single Current Living Situation: Intermediate Current Living Situation Comment: [facility] Feels Safe at Home: Yes Assistive Devices: Denture - Upper, Denture - Lower, Mechanical Lift and Wheelchair Allergies Allergies Allergy/AdvReac Type Severity Reaction Status Date / Time demeclocycline Allergy Unknown ON CENTRE Verified 11/21/23 18:14 CARE MED LIST sulfamethoxazole Allergy Unknown ON CENTRE Verified 11/21/23 18:14 CARE MED LIST trimethoprim Allergy Unknown ON CENTRE Verified 11/21/23 18:14 CARE MED LIST ropinirole AdvReac Intermediate fluid Verified 11/21/23 18:14 retention pregabalin [From Lyrica] AdvReac Unknown Unknown Verified 11/21/23 18:14 Home Meds Home Medications Medication Instructions Recorded Confirmed omega 2-dpr-pnw-fish oil 1,000 mg 1 cap PO QAM 05/05/18 11/21/23 (120 mg-180 mg) capsule (Fish Oil) raloxifene 60 mg tablet 60 mg PO QAM osteoporosis 05/05/18 11/21/23 fenofibrate 160 mg tablet 160 mg PO DAILY 12/30/19 11/21/23 dextromethorphan-guaifenesin 10 10 ml PO Q4H PRN Cough 03/16/22 11/21/23 mg-100 mg/5 mL oral liquid (Tussin DM) lorazepam 0.5 mg tablet 0.5 mg PO HS 03/16/22 11/21/23 vit C 250 mg-vit E 90 mg-zinc 40 1 tab PO BIDM 03/16/22 11/21/23 mg-copper 1 qs-qitxsr-hzjlmy capsule (PreserVision AREDS-2) atropine 1 % eye drops 1 drp OPR Q8H PRN Dry Eye(S) 07/12/23 11/21/23 escitalopram oxalate 10 mg tablet 10 mg PO QAM 07/12/23 11/21/23 ferrous sulfate 142 mg (45 mg 142 mg PO QAM 07/12/23 11/21/23 iron) tablet,extended release gabapentin 100 mg capsule 100 mg PO BIDM 07/12/23 11/21/23 guaifenesin 600 mg tablet, 600 mg PO BID PRN Cough 07/12/23 11/21/23 extended release 12 hr (Mucus Relief ER) L.acidop,casei,lactis,rham-B.lact,karen 2 cap PO QAM 10/02/23 11/21/23 625 mg (10 billion cell) capsule (Advanced Probiotic) acetaminophen 325 mg tablet 650 mg PO Q6H PRN fever/pain 10/02/23 11/21/23 (Tylenol) loperamide 2 mg capsule 2 mg PO Q3H PRN Diarrhea 10/02/23 11/21/23 Protein Liquid 30 ml PO BID r/t wound support 11/02/23 11/21/23 pantoprazole 40 mg tablet,delayed 40 mg PO BIDM 11/02/23 11/21/23 release potassium chloride 20 mEq 20 meq PO QAM 11/02/23 11/21/23 tablet,extended release(part/cryst) spironolactone 25 mg tablet 12.5 mg PO QAM 11/02/23 11/21/23 torsemide 60 mg tablet 60 mg PO QAM 11/02/23 11/21/23 Saccharomyces boulardii 250 mg 250 mg PO BID 11/21/23 11/21/23 capsule (Florastor) ondansetron HCl 4 mg tablet 4 mg PO Q6H PRN NAUSEA/VOMITING 11/21/23 11/21/23 oxymetazoline 0.05 % nasal spray 3 spray intranasal DIRECTED PRN 11/21/23 11/21/23 EPISTAXIS Previous Rx's Medication Instructions Recorded amoxicillin 500 mg capsule 500 mg PO TID #90 caps 10/15/23 ciprofloxacin HCl 500 mg tablet 500 mg PO BID #60 tabs 10/15/23 metoprolol succinate 25 mg 12.5 mg (1/2 x 25 mg) PO BID #30 10/15/23 tablet,extended release 24 hr tabs Results & Data (ED) Vital Signs Vital Signs - 24 hr 11/21/23 15:08 11/21/23 15:22 11/21/23 15:30 Temperature Temperature Source Pulse Rate 91 H 91 H 101 H Pulse Rate from SpO2 Sensor 94 H Pulse Rhythm Respiratory Rate 24 24 Respiratory Effort / Characteristics Respiratory Depth Blood Pressure Blood Pressure Mean Blood Pressure Position Pulse Oximetry 97 Oxygen Delivery Method Nasal Cannula Oxygen Flow Rate 2 Sepsis Recent Fever Within 48 Hours Sepsis New/Unexplained Change in Mental Status Sepsis Action Taken by Nursing 11/21/23 15:32 11/21/23 16:00 11/21/23 16:00 Temperature 36.7 C Temperature Source Oral Pulse Rate 70 86 Pulse Rate from SpO2 Sensor 86 Pulse Rhythm Respiratory Rate 20 23 Respiratory Effort / Characteristics Non-Labored Spontaneous Respiratory Depth Normal Blood Pressure 142/70 H 140/75 Blood Pressure Mean 94 91 Blood Pressure Position Pulse Oximetry 97 96 Oxygen Delivery Method Room Air Oxygen Flow Rate Sepsis Recent Fever Within 48 Hours No Sepsis New/Unexplained Change in Mental Status No Sepsis Action Taken by Nursing No Action Required 11/21/23 16:30 11/21/23 17:00 11/21/23 17:00 Temperature Temperature Source Pulse Rate 82 110 H Pulse Rate from SpO2 Sensor 82 83 Pulse Rhythm Respiratory Rate 19 23 Respiratory Effort / Characteristics Respiratory Depth Blood Pressure 109/72 Blood Pressure Mean 77 Blood Pressure Position Pulse Oximetry 96 96 Oxygen Delivery Method Nasal Cannula Oxygen Flow Rate 2 Sepsis Recent Fever Within 48 Hours Sepsis New/Unexplained Change in Mental Status Sepsis Action Taken by Nursing 11/21/23 17:44 Temperature 37.1 C Temperature Source Oral Pulse Rate 74 Pulse Rate from SpO2 Sensor Pulse Rhythm Regular Respiratory Rate 20 Respiratory Effort / Characteristics Respiratory Depth Blood Pressure 113/61 Blood Pressure Mean 78 Blood Pressure Position Lying Pulse Oximetry 98 Oxygen Delivery Method Oxygen Flow Rate Sepsis Recent Fever Within 48 Hours Sepsis New/Unexplained Change in Mental Status Sepsis Action Taken by Intermediate Medications Current Medication List: was personally reviewed by me Laboratory Data Attestation: I reviewed the patient's lab results. 11/21/23 17:48 11/21/23 17:48 Lab Results 11/21/23 11/21/23 11/21/23 Range/Units 16:15 17:08 17:41 WBC (4.8-10.8) K/ul RBC (4.20-5.40) M/uL Hgb (12.0-16.0) g/dl Hct (37.0-47.0) % MCV (80.0-100.0) fL MCH (25.0-34.0) pg MCHC (32.0-36.0) g/dL RDW Std Deviation (36.4-46.3) fL RDW Coeff of Vicki (11.5-14.5) % Plt Count (130-400) K/uL MPV (9.4-12.4) fL PT (9.0-12.0) Seconds INR (0.9-1.1) APTT (21-31) Seconds PTT Ratio Sodium (136-145) mmol/L Potassium (3.5-5.1) mmol/L Chloride (98-107) mmol/L Carbon Dioxide (21-32) mmol/L Anion Gap (3-11) BUN (6-23) mg/dl Creatinine (0.6-1.2) mg/dl Est Cr Clr Drug Dosing ml/min Est GFR ( Amer) ml/min Est GFR (Non-Af Amer) ml/min BUN/Creatinine Ratio (10-20) Glucose (70-99(Fasting)) mg/dl Calcium (8.6-10.3) mg/dl Total Bilirubin (0.2-1.0) mg/dl AST (13-39) U/L ALT (7-52) U/L Alkaline Phosphatase (34-104) U/L Troponin I High Sens (0-14) pg/ml B-Natriuretic Peptide 264 H (0-100) pg/ml Total Protein (6.0-8.3) gm/dl Albumin (3.4-5.0) gm/dl Globulin (2.5-4.0) gm/dl Albumin/Globulin Ratio (0.9-2) POC Stool Occult Blood Positive A (Negative) Blood Type O Positive Antibody Screen NEGATIVE Crossmatch See Detail 11/21/23 Range/Units 17:48 WBC 4.77 L (4.8-10.8) K/ul RBC 2.55 L (4.20-5.40) M/uL Hgb 7.1 L (12.0-16.0) g/dl Hct 23.2 L (37.0-47.0) % MCV 91.0 (80.0-100.0) fL MCH 27.8 (25.0-34.0) pg MCHC 30.6 L (32.0-36.0) g/dL RDW Std Deviation 58.5 H (36.4-46.3) fL RDW Coeff of Vicki 17.6 H (11.5-14.5) % Plt Count 331 (130-400) K/uL MPV 10.4 (9.4-12.4) fL PT 12.1 H (9.0-12.0) Seconds INR 1.1 (0.9-1.1) APTT 25 (21-31) Seconds PTT Ratio 0.9 Sodium 141 (136-145) mmol/L Potassium 3.8 (3.5-5.1) mmol/L Chloride 108 H (98-107) mmol/L Carbon Dioxide 29 (21-32) mmol/L Anion Gap 4 (3-11) BUN 34 H (6-23) mg/dl Creatinine 1.16 (0.6-1.2) mg/dl Est Cr Clr Drug Dosing 41.3 ml/min Est GFR ( Amer) 50.1 ml/min Est GFR (Non-Af Amer) 43.2 ml/min BUN/Creatinine Ratio 29.3 H (10-20) Glucose 119 H (70-99(Fasting)) mg/dl Calcium 9.0 (8.6-10.3) mg/dl Total Bilirubin 0.3 (0.2-1.0) mg/dl AST 18 (13-39) U/L ALT 8 (7-52) U/L Alkaline Phosphatase 53 (34-104) U/L Troponin I High Sens 9.5 (0-14) pg/ml B-Natriuretic Peptide (0-100) pg/ml Total Protein 5.4 L (6.0-8.3) gm/dl Albumin 2.9 L (3.4-5.0) gm/dl Globulin 2.5 (2.5-4.0) gm/dl Albumin/Globulin Ratio 1.2 (0.9-2) POC Stool Occult Blood (Negative) Blood Type Antibody Screen Crossmatch Administered Medications Discontinued Medications Furosemide (Furosemide Inj 20 Mg/2 Ml Vial) 20 mg IV ONE ONE Stop: 11/21/23 18:01 Last Admin: 11/21/23 17:33 Dose: 20 mg Documented By: VICTOR HUGO Pantoprazole Sodium 40 mg/ (Syringe) 10 mls @ 5 mls/min IV NOW ONE Stop: 11/21/23 17:01 Last Admin: 11/21/23 17:14 Dose: 5 mls/min Documented By: HS Imaging Data Attestation: I personally reviewed and interpreted this imaging study as follows: My Impression: 1 view chest x-ray was obtained in the emergency department. My interpretation is no free air or definite try, final report below Radiologist's Impression: Chest X-Ray 11/21/23 15:57 XR chest 1V portable CLINICAL HISTORY: fall TECHNIQUE: Single frontal radiograph of the chest was obtained. Comparison: Comparison is made to chest radiograph 10/11/2023 FINDINGS: No lines and tubes are seen. Cardiomegaly is noted. The aortic arch is calcified. Prominence and cephalization of the vasculature is seen. No evidence of pleural effusion or pneumothorax. IMPRESSION: Cardiomegaly and mild pulmonary edema. ACT 112: Negative or not required by law. Electronically signed by: Pancho Membreno M.D. 11/21/2023 4:47 PM Foot X-Ray 11/21/23 15:57 XR foot LT min 3V routine CLINICAL HISTORY: fall TECHNIQUE: 3 views of the right foot were obtained. Comparison: None available at the time of this dictation. FINDINGS: Limited visualization based on positioning. No fractures are present. Degenerative changes are seen. No soft tissue abnormality is seen. IMPRESSION: Degenerative changes without evidence of acute fracture. ACT 112: Negative or not required by law. Electronically signed by: Pancho Membreno M.D. 11/21/2023 5:00 PM Tibia/Fibula X-Ray 11/21/23 15:57 XR tibia fibula LT 2V CLINICAL HISTORY: Fall. COMPARISON: Left knee and ankle radiographs September 15, 2017. FINDINGS: Osteopenia is noted. There are no acute fractures within the left tibia or fibula. Left lower leg soft tissue swelling is present. IMPRESSION: No fractures within the left tibia or fibula. ACT 112: Negative or not required by law. Electronically signed by: Lan Wilcox M.D. 11/21/2023 5:02 PM Discharge Plan Visit Data Chief Complaint: Abnormal Labs/Diagnostic Testing ED Provider: Naveen Mccracken Discharge Problem: Acute lower GI bleeding, Anemia, Contusion of foot, left, Fall Patient Disposition: Being Evaluated by Hospitalist Discharge Instructions Interventions: ED Discharge Assessment Last Done: 11/21/23 19:47 Discharge Problem: Anemia Qualifiers: Anemia type: unspecified type Qualified Code(s): D64.9 - Anemia, unspecified Contusion of foot, left Qualifiers: Encounter type: initial encounter Qualified Code(s): S90.32XA - Contusion of left foot, initial encounter Fall Qualifiers: Encounter type: initial encounter Qualified Code(s): W19.XXXA - Unspecified fall, initial encounter
--- NOTE | 2023-11-21 16:30 | History & Physical Report ---
Date of Service November 21, 2023 Assessment & Plan (1) Blood loss anemia: Plan: -Admit to the PCU on tele and pulse oximetry -Currently non-toxic appearing, hemodynamically stable, and stable on her baseline 2L NC -Was sent to the ED from [facility] today for ongoing downtrending Hgb, 6.9 today and Heme + stool -Patient had an EGD on 11/07/23 which was unremarkable -Patient's Eliquis has been on hold since 10/31/23 per [facility] Staff -Patient was Hemoccult positive in the ED today as well -Type/screen was ordered in the ED -Blood consent was obtain at the time of admission -Will Type/cross her for a total of 3 units for now -Will give 1 unit of PRBC's tonight; will give 20 mg IV lasix prior with her pulmonary edema on CXR today -GI has been consulted, will likely need to undergo colonoscopy prior to discharge -Will hold bowel prep tonight until we confirm she is stable -Will start 40 mg IV BID Protonix now -Currently hemodynamically stable, will wait to see how she responds to the transfusion -Hold chemical DVT PPX due to GI bleed, unfortunately SCD's and CHERYL's will not be an option with her severe BL LE lymphedema -NPO except meds now -Will trend CBC q6h starting at 2400, monitor am CMP, mag, INR (2) Hypoxia: Plan: -Patient was admitted to the [facility] service in September for acute hypoxic respiratory failure due to RLL pneumonia -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 [facility] -Patient has been on 2L NC at all times since last admission -Currently stable on 2L NC at the time of admission -CXR today shows mild pulmonary edema -Continue pulmonary Hygiene and PRN O2 to keep SpO2 at or above 92% -Will give 20 mg IV lasix with her first blood transfusion to prevent worsening pulmonary edema -Will try and have patient try HS CPAP tonight (3) Paroxysmal A-fib: Plan: -Currently in NSR -Continue to hold Elqiuis with GI bleed -Continue metoprolol (4) Right-sided congestive heart failure: Plan: -Currently with mild pulmonary edema on CXR but stable on baseline 2L NC since l ast admission -Will give 20 mg IV lasix with first blood transfusion as long as BP remains stable -Will hold torsemide and spironolactone for now -Monitor volume status daily and diurese as needed (5) Acute pain of left lower extremity: Plan: -Patient has been experiencing left foot and ankle pain since a fall while walking at [facility] on 11/17 -Does have bruising over the dorsal aspect of the left foot and left lateral ankle -Xray of the left foot and left tib/fib were negative for fracture -Will continue with prn Tylenol and ice for now as pain is mild at this time -Will keep on bedrest until she is stable from her GI bleed (6) Chronic osteomyelitis of right ankle: Plan: -Developed OM after her right ankle fracture repair -Completed her course of IV cefepime during her last admission -Right ankle incision site appears well-healed and without signs of acute infection -Has continued on Amoxicillin and Ciprofloxacin at the recommendation of Orthopedics for chronic suppressive therapy -Continue Amoxicillin and Ciprofloxacin (7) HTN (hypertension): Plan: -Stable -Will continue metoprolol but will hold home diuretics for now to prevent hypotension (8) RADHA (obstructive sleep apnea): Plan: -HS CPAP ordered -Patient will likely decline -Continue 2L NC at all times (9) Chronic GERD: Plan: -Continue IV pantoprazole Plan The patient was discussed with Dr. Lopez at the time of the admission History of Present Illness Chief Complaint: abnormal outpatient labs Primary Care Provider: Jennifer Estes is a 83 yo F with PMHX of R tib/fib s/p ORIF with osteomyelitis (completed Cefepime and on chronic Ciprofloxacin and Amoxicillin per Orthopedics), Afib (On Eliquis), prediabetes, CKDIII, hypertension, chronic right CHF, mitral vlave prolapse, HLD, chronic lymphedema, RADHA, L4 compression fracture with severe spinal stenosis, and recent admission to [facility] for metabolic encephalopathy from RLL pneumonia who was sent to the [facility] ED from [facility] for a Hgb of 6.9 and ongoing left foot pain/swelling since a fall on 11/18/23. Of note, she was reported heme + at [facility]. Per discussions with the ED staff who were in contact with [facility], the patient has had a downtrending Hgb over the past month. She initially declined a colonoscopy but did undergo EGD on 11/07/23 which was unremarkable. The patient has subsequently agreed to a colonoscopy but this has yet to be obtained. She had a fall on 11/18/23 at [facility] and has had ongoing left foot swelling/pain. She was sent to the ED for all of these issues. She remained stable in the ED. Labs as of this am were significant for a hgb of 6.9 (down from 7.4 as of 11/14/23), Hct of 21, MCHC of 31, with CMP, in process. Chest xray was read as "Cardiomegaly and mild pulmonary edema.". Xray of the left foot was read as "Degenerative changes without evidence of acute fracture." Xray of the left tib/fib was also read as negative for acute findings. At the time of the exam the patient was resting in bed in no acute distress. She confirms the above history. States that she was walking to the bathroom on 11/17 when her legs gave out due to weakness. She is unsure how she landed on her LLE but has had pain and swelling since. Pain is about a 5/10 at this time. Is now ok with having a colonoscopy if needed. When asked, she confirms that her RUE is chronically swollen compared to left and has been evaluated in the past. Denies recent fever, chills, chest pain, cough, SOB, abd pain, nausea, vomiting, diarrhea, dysuria, hematuria and RLE pain. We discussed code eleazar, she confirms she is a DNR/DNI. When asked, she states that [facility] has been keeping her on 2L NC at all times over the past month. She denies ever wearing a CPAP mask in the past. I called and spoke to Chirag Pond, one of the staff at [facility]. He confirms the above history and confirms that the patient's Eliquis has been on hold since 10/31/23 due to her down trending Hgb. I was also able to call and speak with the patient's friend/POA (Preston Cuenca [phone]) after getting permission from Meera. He confirms that she is a DNR/DNI and also agrees with the patient receiving blood transfusions if needed. Please refer to Dr. Lopez's attestation for any changes to the treatment Allergies Allergy/AdvReac Type Severity Reaction Status Date / Time demeclocycline Allergy Unknown ON [place] Verified 11/21/23 18:14 CARE MED LIST sulfamethoxazole Allergy Unknown ON [place] Verified 11/21/23 18:14 CARE MED LIST trimethoprim Allergy Unknown ON [place] Verified 11/21/23 18:14 CARE MED LIST ropinirole AdvReac Intermediate fluid Verified 11/21/23 18:14 retention pregabalin [From Lyrica] AdvReac Unknown Unknown Verified 11/21/23 18:14 Home Medications Medication Instructions Recorded Confirmed Type omega 0-gzk-irk-fish oil 1,000 mg 1 cap PO QAM 05/05/18 11/21/23 History (120 mg-180 mg) capsule (Fish Oil) raloxifene 60 mg tablet 60 mg PO QAM osteoporosis 05/05/18 11/21/23 History fenofibrate 160 mg tablet 160 mg PO DAILY 12/30/19 11/21/23 History dextromethorphan-guaifenesin 10 10 ml PO Q4H PRN Cough 03/16/22 11/21/23 History mg-100 mg/5 mL oral liquid (Tussin DM) lorazepam 0.5 mg tablet 0.5 mg PO HS 03/16/22 11/21/23 History vit C 250 mg-vit E 90 mg-zinc 40 1 tab PO BIDM 03/16/22 11/21/23 History mg-copper 1 ji-jegxtc-yocenz capsule (PreserVision AREDS-2) atropine 1 % eye drops 1 drp OPR Q8H PRN Dry Eye(S) 07/12/23 11/21/23 History escitalopram oxalate 10 mg tablet 10 mg PO QAM 07/12/23 11/21/23 History ferrous sulfate 142 mg (45 mg 142 mg PO QAM 07/12/23 11/21/23 History iron) tablet,extended release gabapentin 100 mg capsule 100 mg PO BIDM 07/12/23 11/21/23 History guaifenesin 600 mg tablet, 600 mg PO BID PRN Cough 07/12/23 11/21/23 History extended release 12 hr (Mucus Relief ER) L.acidop,casei,lactis,rham-B.lact,karen 2 cap PO QAM 10/02/23 11/21/23 History 625 mg (10 billion cell) capsule (Advanced Probiotic) acetaminophen 325 mg tablet 650 mg PO Q6H PRN fever/pain 10/02/23 11/21/23 History (Tylenol) loperamide 2 mg capsule 2 mg PO Q3H PRN Diarrhea 10/02/23 11/21/23 History amoxicillin 500 mg capsule 500 mg PO TID #90 caps 10/15/23 11/21/23 Rx ciprofloxacin HCl 500 mg tablet 500 mg PO BID #60 tabs 10/15/23 11/21/23 Rx metoprolol succinate 25 mg 12.5 mg (1/2 x 25 mg) PO BID #30 10/15/23 11/21/23 Rx tablet,extended release 24 hr tabs Protein Liquid 30 ml PO BID r/t wound support 11/02/23 11/21/23 History pantoprazole 40 mg tablet,delayed 40 mg PO BIDM 11/02/23 11/21/23 History release potassium chloride 20 mEq 20 meq PO QAM 11/02/23 11/21/23 History tablet,extended release(part/cryst) spironolactone 25 mg tablet 12.5 mg PO QAM 11/02/23 11/21/23 History torsemide 60 mg tablet 60 mg PO QAM 11/02/23 11/21/23 History Saccharomyces boulardii 250 mg 250 mg PO BID 11/21/23 11/21/23 History capsule (Florastor) ondansetron HCl 4 mg tablet 4 mg PO Q6H PRN NAUSEA/VOMITING 11/21/23 11/21/23 History oxymetazoline 0.05 % nasal spray 3 spray intranasal DIRECTED PRN 11/21/23 11/21/23 History EPISTAXIS Past Med/Surg History Medical History Unspecified atrial fibrillation Metabolic encephalopathy History of pneumonia Difficulty in walking, not elsewhere classified Other fracture of right lower leg, subsequent encounter for closed fracture with routine healing Unspecified open wound, right ankle, subsequent encounter Proteus (mirabilis) (morganii) as the cause of diseases classified elsewhere Laceration without foreign body of left ear, subsequent encounter Cognitive communication deficit Dysphagia Wedge compression fracture of fourth lumbar vertebra with routine healing Stress fracture, pelvis, subsequent encounter for fracture with routine healing Weakness Pain in right leg Personal history of COVID-19 History of falling Other abnormalities of gait and mobility Pain in right hip Spinal stenosis, lumbosacral region Muscle weakness (generalized) Hyperlipidemia Hypoxemia Hypo-osmolality and hyponatremia Nocturnal hypoxia Right-sided congestive heart failure Sacral insufficiency fracture Cor pulmonale (chronic) Lumbar stenosis with neurogenic claudication Chronic GERD without esophagitis Right heart failure Dependence on nocturnal oxygen therapy RADHA (obstructive sleep apnea) Dyslipidemia Morbid obesity with BMI of 40.0-44.9, adult Mitral valve prolapse Osteoporosis Chronic acquired lymphedema HTN (hypertension) Chronic back pain Surgical History Hx of cholecystectomy Status post lumbar spine surgery for decompression of spinal cord 2017 Dr. Wan Status post kyphoplasty L3, L4, L5 2018 Dr. 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 Beliefs That Will Affect Care: None marital status: Single Current Living Situation: Shelter Current Living Situation Comment: [facility] Feels Safe at Home: Yes Assistive Devices: Denture - Upper, Denture - Lower, Mechanical Lift and Wheelchair Physical Exam Physical Exam: Physical Exam: General: In no acute distress, stated age, chronically ill appearing but non- toxic HEENT: Normocephalic, atraumatic, no scleral icterus, pupils around round, symmetrical, and reactive to light, moist mucus membranes, trachea midline, no thyromegaly Chest/Pulm: No respiratory distress, symmetrical chest expansion, decreased breath sounds in the BL lower and mid lung sounds with mild expiratory wheezing in the BL upper lung almanza Cardiac: RRR, no murmurs noted Abdomen: Negative for ascites and bruising, normoactive bowel sounds, soft, non-tender to palpation throughout : Patient with tomlinson catheter placed by ED in place and draining clear, yellow urine Musculoskeletal: Patient with bruising noted over the dorsal aspect of the left foot and left lateral ankle, no other acute trauma noted on exam Extremities: Radial, dorsalis pedis, and posterior tibial pulses are intact and symmetrical, significant lymphedema noted in the BL LE's without signs of infection Skin: Warm, dry, no rashes , lesions, or scars noted >Site of previous right ankle infection appears well healed and without signs of infection Neuro: Alert and oriented to person, place, month, year, and president, no focal defects, no tremors noted Psych: No acute distress, calm and cooperative during the exam Results & Data Results & Data Vital Signs (Past 12 Hours) Vital Signs Temp Pulse Resp BP Pulse Ox O2 Del Method 11/21/23 15:32 36.7 C 70 20 142/70 H 97 Room Air 11/21/23 15:22 91 H Laboratory Results Abnormal lab results 11/21/23 11/21/23 Range/Units 16:15 17:08 POC Stool Occult Blood Positive A (Negative) Crossmatch See Detail Diagnostic Findings Chest X-Ray 11/21/23 15:57 XR chest 1V portable CLINICAL HISTORY: fall TECHNIQUE: Single frontal radiograph of the chest was obtained. Comparison: Comparison is made to chest radiograph 10/11/2023 FINDINGS: No lines and tubes are seen. Cardiomegaly is noted. The aortic arch is calcified. Prominence and cephalization of the vasculature is seen. No evidence of pleural effusion or pneumothorax. IMPRESSION: Cardiomegaly and mild pulmonary edema. ACT 112: Negative or not required by law. Electronically signed by: Pancho Membreno M.D. 11/21/2023 4:47 PM Foot X-Ray 11/21/23 15:57 XR foot LT min 3V routine CLINICAL HISTORY: fall TECHNIQUE: 3 views of the right foot were obtained. Comparison: None available at the time of this dictation. FINDINGS: Limited visualization based on positioning. No fractures are present. Degenerative changes are seen. No soft tissue abnormality is seen. IMPRESSION: Degenerative changes without evidence of acute fracture. ACT 112: Negative or not required by law. Electronically signed by: Pancho Membreno M.D. 11/21/2023 5:00 PM Tibia/Fibula X-Ray 11/21/23 15:57 XR tibia fibula LT 2V CLINICAL HISTORY: Fall. COMPARISON: Left knee and ankle radiographs September 15, 2017. FINDINGS: Osteopenia is noted. There are no acute fractures within the left tibia or fibula. Left lower leg soft tissue swelling is present. IMPRESSION: No fractures within the left tibia or fibula. ACT 112: Negative or not required by law. Electronically signed by: Lan Wilcox M.D. 11/21/2023 5:02 PM ECG Additional Comments: Sinus rhythm with 1st degree A-V block Low voltage QRS Nonspecific ST abnormality Abnormal ECG When compared with ECG of 04-OCT-2023 09:05, Sinus rhythm has replaced Atrial fibrillation ST no longer depressed in Lateral leads T wave inversion no longer evident in Inferior leads T wave inversion no longer evident in Lateral leads Code Status & VTE Plan Code Status DNR/DNI VTE Prophylaxis Plan VTE Prophylaxis will be ordered: Yes Supervising Physician Co-Signing Physician Notes Patient seen and examined, chart reviewed, case discussed with Andrei Ordonez PA-C and I agree with the assessment and plan as above except as otherwise noted Labs and images reviewed Meera is a 83-year-old with a past medical history of paroxysmal A-fib, CKD, cor pulmonale, hypertension, morbid obesity, RADHA, lumbar stenosis, right tib/fib s/p ORIF with osteomyelitis who completed a course of antibiotics and subsequently on amoxicillin/ciprofloxacin chronically for suppression with orthopedic follow- up who [facility] from [facility] with acute anemia 6.9, left foot pain/swelling of around 3 days, and heme positive stool. Patient's hemoglobin has down trended over the past several weeks, EGD 11/07/2023 did not show any acute ulcers or bleeding. Patient is pending a colonoscopy. Eliquis was held 10/31/2023. When unit of blood transfused for hemoglobin less than 7 with Lasix due to concurrent pulmonary edema. GI consulted for GI bleed. Low suspicion for upper GI bleed especially given recent normal EGD; IV twice daily Protonix continued pending further eval. CBC trended. Patient is hypoxic, Lasix as above for pulmonary edema. No signs of recurrent pneumonia at time of admission. Agree with assessment and management of [facility] Care Time/CCT Total # of Minutes Spent Total Time Spent with Patient: Total time spent is greater than 50% in coordination of care (as documented) at patient's floor/unit and/or counseling patient: [place] [address] INT INP/OBS CARE 3/75MIN Patient Type New Medical Decision Making High Complexity Diagnoses Blood loss anemia D50.0 Hypoxia R09.02 Paroxysmal A-fib I48.0 Right-sided congestive heart failure I50.810 Acute pain of left lower extremity M79.605 Chronic osteomyelitis of right ankle M86.671 HTN (hypertension) I10 RADHA (obstructive sleep apnea) G47.33 Chronic GERD K21.9
--- NOTE | 2023-11-21 16:48 | XRay Report ---
XR chest 1V portable CLINICAL HISTORY: fall TECHNIQUE: Single frontal radiograph of the chest was obtained. Comparison: Comparison is made to chest radiograph 10/11/2023 FINDINGS: No lines and tubes are seen. Cardiomegaly is noted. The aortic arch is calcified. Prominence and ceph alization of the vasculature is seen. No evidence of pleural effusion or pneumothorax. IMPRESSION: Cardiomegaly and mild pulmonary edema. ACT 112: Negative or not required by law. Electronically signed by: Pancho Membreno M.D. 11/21/2023 4:47 PM
--- NOTE | 2023-11-21 17:01 | XRay Report ---
XR foot LT min 3V routine CLINICAL HISTORY: fall TECHNIQUE: 3 views of the right foot were obtained. Comparison: None available at the time of this dictation. FINDINGS: Limited visualization based on positioning. No fractures are present. Degenerative changes are seen. No soft tissue abnormality is seen. IMPRESSION: Degenerative changes without evidence of acute fracture. ACT 112: Negative or not required by law. Electronically signed by: Pancho Membreno M.D. 11/21/2023 5:00 PM
--- NOTE | 2023-11-21 17:03 | XRay Report ---
XR tibia fibula LT 2V CLINICAL HISTORY: Fall. COMPARISON: Left knee and ankle radiographs September 15, 2017. FINDINGS: Osteopenia is noted. There are no acute fractures within the left tibia or fibula. Left lo wer leg soft tissue swelling is present. IMPRESSION: No fractures within the left tibia or fibula. ACT 112: Negative or not required by law. Electronically signed by: Lan Wilcox M.D. 11/21/2023 5:02 PM
[2023-11-21] MEDS: PANTOprazole 40 MG in SYRINGE 0 ML IV ONE (17:14)
[2023-11-21] MEDS ORDERED: SODIUM CHLORIDE 0.9% 250 ML IV PRN (17:18)
[2023-11-21] MEDS: FUROSEMIDE INJ 20 MG/2 ML VIAL IV ONE (17:33)
[2023-11-21 18:10] LABS: Hematocrit (blood only) 23.2 % (37.0-47.0); Hemoglobin 7.1 g/dl (12.0-16.0); Mean Corpuscular Hemoglobin 27.8 pg (25.0-34.0); Mean Corpuscular Hgb Conc 30.6 g/dL (32.0-36.0); Mean Platelet Volume 10.4 fL (9.4-12.4); Platelet Count 331 K/uL (130-400); RDW Coefficient of Variation 17.6 % (11.5-14.5); RDW Standard Deviation 58.5 fL (36.4-46.3); Red Blood Count 2.55 M/uL (4.20-5.40); White Blood Count 4.77 K/ul (4.8-10.8)
[2023-11-21 18:28] LABS: Albumin Globulin Ratio 1.2 (0.9-2); Albumin Level 2.9 gm/dl (3.4-5.0); BUN Creatinine Ratio 29.3 (10-20); Bilirubin,Total 0.3 mg/dl (0.2-1.0); Creatinine Clr Calc Pharmacy 41.3 ml/min; Est GFR (African American) 50.1 ml/min; Est GFR (Non-African American) 43.2 ml/min; Globulin 2.5 gm/dl (2.5-4.0); Potassium 3.8 mmol/L (3.5-5.1); Total Protein 5.4 gm/dl (6.0-8.3)
[2023-11-21 18:32] LABS: Troponin I High Sensitivity 9.5 pg/ml (0-14)
[2023-11-21 18:40] LABS: INR 1.1 (0.9-1.1); Partial Thromboplastin Ratio 0.9; Partial Thromboplastin Time 25 Seconds (21-31); Prothrombin Time 12.1 Seconds (9.0-12.0)
[2023-11-21] MEDS: LORazepam 0.5 MG TAB PO SCH (21:40)
[2023-11-21] MEDS: AMOXICILLIN 500 MG CAP PO SCH (21:40)
[2023-11-21] MEDS: CIPROFLOXACIN 500 MG TAB PO SCH (21:41)
[2023-11-21] MEDS: METOPROLOL SUCC 25MG EXT REL TAB PO SCH (21:41)
[2023-11-22 00:47] LABS: Hematocrit (blood only) 23.7 % (37.0-47.0); Hemoglobin 7.7 g/dl (12.0-16.0); Mean Corpuscular Hemoglobin 28.2 pg (25.0-34.0); Mean Corpuscular Hgb Conc 32.5 g/dL (32.0-36.0); Mean Corpuscular Volume 86.8 fL (80.0-100.0); Mean Platelet Volume 9.8 fL (9.4-12.4); Platelet Count 307 K/uL (130-400); RDW Coefficient of Variation 17.3 % (11.5-14.5); RDW Standard Deviation 54.4 fL (36.4-46.3); Red Blood Count 2.73 M/uL (4.20-5.40); White Blood Count 4.66 K/ul (4.8-10.8)
--- NOTE | 2023-11-22 07:01 | Hospitalist Progress Note ---
Date of Service November 22, 2023 Assessment & Plan (1) Blood loss anemia: (2) CKD (chronic kidney disease): (3) Paroxysmal A-fib: (4) Chronic GERD: (5) Acute pain of left lower extremity: (6) RADHA (obstructive sleep apnea): (7) HTN (hypertension): (8) Chronic osteomyelitis of right ankle: (9) Right-sided congestive heart failure: Plan Pt is a 83 yo female with a past medical history of R tib/fib s/p ORIF with osteomyelitis (completed Cefepime and on chronic Ciprofloxacin and Amoxicillin per Orthopedics), Afib (On Eliquis), prediabetes, CKDIII, hypertension, chronic right CHF, mitral valve prolapse, HLD, chronic lymphedema, RADHA, L4 compression fracture with severe spinal stenosis, and recent admission to [facility] for metabolic encephalopathy from RLL pneumonia who presents to the hospital on 11/20 from [facility] for acute anemia 6.9. #Acute blood loss anemia - most recent hosp in Sep 2023, hemoglobin was 9-10, on admission here was 6.9 - heme + at [facility], - Patient's Eliquis has been on hold since 10/31/23 per [facility] - Patient had an EGD on 11/07/23 which was unremarkable - type and crossed for 3 units and s/p 1 unit PRBCs (11/21) - GI consulted; recommend outpatient colonoscopy - will start clear diet today and may advance tomorrow as tolerated #R arm swelling - venous duplex US (11/21) wnl - recommend elevation of the arm to promote venous drainage #Acute pain of left lower extremity - Patient has been experiencing left foot and ankle pain since a fall while walking at [facility] on 11/17 - Does have bruising over the dorsal aspect of the left foot and left lateral ankle - Xray of the left foot and left tib/fib were negative for fracture, so likely a sprain at this point - Will continue with prn Tylenol and ice for now as pain is mild at this time - Will keep on bedrest until she is stable from her GI bleed #Hx of Hypoxia -Patient was admitted to the [facility] service in September for acute hypoxic respiratory failure due to RLL pneumonia -Patient has been on 2L NC at all times since last admission and stable on that amount -CXR on admission shows mild pulmonary edema -Continue pulmonary Hygiene and PRN O2 to keep SpO2 at or above 92% #Paroxysmal A-fib - Currently in NSR - Continue metoprolol - Continue to hold Elqiuis with acute GI bleed #Right-sided congestive heart failure - last echo 09/2023; EF 55-60%, no wall motion abnormalities - may give 20 mg IV lasix with blood transfusions if more are needed, 20 mg given with the first unit given overnight - Will hold torsemide and spironolactone for now - Monitor volume status daily and diurese as needed #Chronic osteomyelitis of right ankle - Developed OM after her right ankle fracture repair - Completed her course of IV cefepime during her last admission - Right ankle incision site appears well-healed and without signs of acute infection - Has continued on Amoxicillin and Ciprofloxacin at the recommendation of Orthopedics for chronic suppressive therapy - Continue Amoxicillin and Ciprofloxacin #HTN (hypertension) -Stable -Will continue metoprolol but will hold home diuretics for now to prevent hypotension #RADHA (obstructive sleep apnea) -HS CPAP ordered -Continue 2L NC at all times #Chronic GERD -Continue IV pantoprazole DVT ppx; deferred in setting of acute GI bleed Admission and Anticipated Discharge Date Admission Date: November 21, 2023 Supervising Physician Co-Signing Physician Notes Attending Physician Supervision Note: I independently interviewed and examined the patient and verified the dasilva history and physical, reviewed labs and image studies and agree with findings and care plan noted above. Acute blood loss anemia sec to GI bleed - -s/p PRBC. monitor h/h. on clear liquids - if concern of rebleed- make NPO and start IVF. -GI consulted- for colonoscopy in am. -continue PPI -holding eliquis - Eliquis not listed in home meds Subjective Pt is a 83 yo female with a past medical history of R tib/fib s/p ORIF with osteomyelitis (completed Cefepime and on chronic Ciprofloxacin and Amoxicillin per Orthopedics), Afib (On Eliquis), prediabetes, CKDIII, hypertension, chronic right CHF, mitral valve prolapse, HLD, chronic lymphedema, RADHA, L4 compression fracture with severe spinal stenosis, and recent admission to [facility] for metabolic encephalopathy from RLL pneumonia who presents to the hospital on 11/20 from [facility] for acute anemia 6.9. Today, pt states she believes she is here to get her L ankle pain sorted out. She states that she fell a few days ago on 11/17 when she was going to the bathroom. She states that she told her nurse that she could not make the walk to the bathroom on her own without getting horribly short of breath but that she tried to and got short of breath, had to stop, and then felt weak and fell. She denies chest pain or SOB or palpitations prior to the fall. She states that her left ankle has been diffusely painful since that time and so she is here for further work up for that. Per admission H&P, [facility] had her come in since her hemoglobin has been downtrending and was 6.9 prior to admission. Heme + at [facility]. Pt denies nausea, vomiting, or abdominal pain. Denies diarrhea and denies seeing blood in her stool but states she never really looks at her stool. She also notes to me today that she has a lot of swelling in her right arm that has been present, she thinks, for months. Review of Systems Review of Systems: Constitutional: denies fever, chills, Cardio: denies chest pain, palpitations Resp: denies shortness of breath, cough GI: denies abdominal pain, nausea, vomiting, constipation, diarrhea : denies pain with urination, change in urinary frequency Physical Exam Physical Exam: General:Alert, no acute distress, HEENT: Normocephalic, moist oral mucosa, Cardio: Regular rate and rhythm, no murmur, bilateral lower extremity edema noted, right upper arm noted to be diffusely swollen with light pitting Resp:Lungs clear to auscultation b/l, no wheezes or rhonchi, GI: Soft, nondistended, bowel sounds active, some tenderness to LUQ and upper middle quadrant of abdomen Skin: Warm, pink, dry, Psych: Mood-affect congruence. Results & Data Results & Data Vital Signs (Past 12 Hours) Vital Signs Temp Pulse Pulse Resp BP BP Pulse Ox 11/22/23 05:00 64 13 113/60 96 11/22/23 03:00 63 14 113/60 99 11/22/23 02:00 73 22 124/51 L 98 11/21/23 23:17 66 11/21/23 21:30 11/21/23 21:30 11/21/23 21:30 68 22 112/66 98 11/21/23 20:00 37.0 C 93 H 22 126/70 96 11/21/23 19:46 11/21/23 19:45 37.0 C 72 24 107/63 98 11/21/23 19:28 99 11/21/23 19:15 36.9 C 77 22 113/62 99 11/21/23 19:07 68 Pulse Ox O2 Del Method O2 Del Method O2 Flow Rate O2 Flow Rate 11/22/23 05:00 Room Air 11/22/23 03:00 Room Air 11/22/23 02:00 Room Air 11/21/23 23:17 11/21/23 21:30 Nasal Cannula 2 11/21/23 21:30 Nasal Cannula 2 11/21/23 21:30 Nasal Cannula 2 11/21/23 20:00 2 11/21/23 19:46 98 Nasal Cannula 2 11/21/23 19:45 2 11/21/23 19:28 Room Air 11/21/23 19:15 11/21/23 19:07 Resident Activity Tracking Resident Involvement: Resident Care Provided Care Provided: Adult Hospital Medicine
[2023-11-22 07:11] LABS: Hematocrit (blood only) 25.6 % (37.0-47.0); Hemoglobin 8.2 g/dl (12.0-16.0); Mean Corpuscular Volume 87.4 fL (80.0-100.0); Mean Platelet Volume 10.2 fL (9.4-12.4); Platelet Count 311 K/uL (130-400); RDW Coefficient of Variation 17.5 % (11.5-14.5); RDW Standard Deviation 55.5 fL (36.4-46.3); Red Blood Count 2.93 M/uL (4.20-5.40); White Blood Count 4.82 K/ul (4.8-10.8)
[2023-11-22 07:17] LABS: INR 1.1 (0.9-1.1); Prothrombin Time 12.4 Seconds (9.0-12.0)
[2023-11-22 07:48] LABS: Albumin Level 2.8 gm/dl (3.4-5.0); Bilirubin,Total 0.5 mg/dl (0.2-1.0); Magnesium 1.7 mg/dl (1.7-2.4); Potassium 3.6 mmol/L (3.5-5.1)
[2023-11-22 07:54] LABS: Albumin Globulin Ratio 1.2 (0.9-2); BUN Creatinine Ratio 27.4 (10-20); Creatinine Clr Calc Pharmacy 42.4 ml/min; Est GFR (African American) 51.7 ml/min; Est GFR (Non-African American) 44.6 ml/min; Globulin 2.4 gm/dl (2.5-4.0); Total Protein 5.2 gm/dl (6.0-8.3)
[2023-11-22] MEDS: GABAPENTIN 100 MG CAP PO SCH (08:40)
[2023-11-22] MEDS: PANTOprazole 40 MG in SYRINGE 0 ML IV SCH (08:41)
[2023-11-22] MEDS: ESCITALOPRAM OXALATE 10 MG TAB PO SCH (08:41)
--- NOTE | 2023-11-22 09:52 | Gastrointestinal Consultation ---
Date of Consultation November 22, 2023 Assessment & Plan (1) Anemia: Patient with history of anemia that has been new this year as she had normal hgb in September 2023. She was sent here for hgb of 6.9 from [facility]. Her stools have tested heme positive. Recently had EGD that was unremarkable. Hgb had impr osmin with 1 unit of PRBC and was 8.2 on 11/21. she is not noticing obvious bleeding. discussed case with Dr. Rico. - continue with protonix 40mg IV bid. - continue to monitor hgb/hct. transfuse as needed. - at this time would recommend colonoscopy be set up as an outpatient. Supervising Physician Co-Signing Physician Notes Agree with BRENTON Garner as above Abd: Soft, NT, ND, +BS Continue current therapy and supportive care Black stool earlier today Check CTA of abd/pelvis now NPO after midnight History of Present Illness Reason for Consultation: hemoccult positive stool, blood loss anemia Requesting Physician: Andrei Ordonez PA-C Attending Physician: Yumiko Alvarez MD History of Present Illness Patient is a 83 year old female with a past medical history of R tib/fib s/p ORIF with osteomyelitis (completed Cefepime and on chronic Ciprofloxacin and Amoxicillin per Orthopedics), Afib (On Eliquis - held since 10/30), prediabetes, CKD III, hypertension, chronic right CHF, mitral vlave prolapse, HLD, chronic lymphedema, RADHA, L4 compression fracture with severe spinal stenosis, and recent admission to [facility] for metabolic encephalopathy from RLL pneumonia who was sent to the [facility] ED from [facility] for a Hgb of 6.9 and ongoing left foot pain/swelling since a fall on 11/18/23. She had reportedly tested heme positive at [facility] as well as in the ED. Since arrival she has been given 1 unit PRBC and 11/22/23 hgb is 8.2. She tells me that her bowels are at baseline for her and seem to fluctuate depending on diet. She tends to have 3-4 bowel movements daily. lately this has been less due to not eating as much. she does not appreciate any blood in the stools or melena. she denies any nauesa, vomiting, heartburn, abdominal pain, unintentional weight loss. She had initially refused a colonoscopy to evaluate anemia in the past but did agree to a recent EGD done on 11/07/23 that was unremarkable. Allergies Allergy/AdvReac Type Severity Reaction Status Date / Time demeclocycline Allergy Unknown ON CENTRE Verified 11/21/23 18:14 CARE MED LIST sulfamethoxazole Allergy Unknown ON CENTRE Verified 11/21/23 18:14 CARE MED LIST trimethoprim Allergy Unknown ON CENTRE Verified 11/21/23 18:14 CARE MED LIST ropinirole AdvReac Intermediate fluid Verified 11/21/23 18:14 retention pregabalin [From Lyrica] AdvReac Unknown Unknown Verified 11/21/23 18:14 Home Medications Medication Instructions Recorded Confirmed Type omega 0-eqg-xye-fish oil 1,000 mg 1 cap PO QAM 05/05/18 11/21/23 History (120 mg-180 mg) capsule (Fish Oil) raloxifene 60 mg tablet 60 mg PO QAM osteoporosis 05/05/18 11/21/23 History fenofibrate 160 mg tablet 160 mg PO DAILY 12/30/19 11/21/23 History dextromethorphan-guaifenesin 10 10 ml PO Q4H PRN Cough 03/16/22 11/21/23 History mg-100 mg/5 mL oral liquid (Tussin DM) lorazepam 0.5 mg tablet 0.5 mg PO HS 03/16/22 11/21/23 History vit C 250 mg-vit E 90 mg-zinc 40 1 tab PO BIDM 03/16/22 11/21/23 History mg-copper 1 bw-sqfaie-uljuxi capsule (PreserVision AREDS-2) atropine 1 % eye drops 1 drp OPR Q8H PRN Dry Eye(S) 07/12/23 11/21/23 History escitalopram oxalate 10 mg tablet 10 mg PO QAM 07/12/23 11/21/23 History ferrous sulfate 142 mg (45 mg 142 mg PO QAM 07/12/23 11/21/23 History iron) tablet,extended release gabapentin 100 mg capsule 100 mg PO BIDM 07/12/23 11/21/23 History guaifenesin 600 mg tablet, 600 mg PO BID PRN Cough 07/12/23 11/21/23 History extended release 12 hr (Mucus Relief ER) L.acidop,casei,lactis,rham-B.lact,karen 2 cap PO QAM 10/02/23 11/21/23 History 625 mg (10 billion cell) capsule (Advanced Probiotic) acetaminophen 325 mg tablet 650 mg PO Q6H PRN fever/pain 10/02/23 11/21/23 Histo ry (Tylenol) loperamide 2 mg capsule 2 mg PO Q3H PRN Diarrhea 10/02/23 11/21/23 History amoxicillin 500 mg capsule 500 mg PO TID #90 caps 10/15/23 11/21/23 Rx ciprofloxacin HCl 500 mg tablet 500 mg PO BID #60 tabs 10/15/23 11/21/23 Rx metoprolol succinate 25 mg 12.5 mg (1/2 x 25 mg) PO BID #30 10/15/23 11/21/23 Rx tablet,extended release 24 hr tabs Protein Liquid 30 ml PO BID r/t wound support 11/02/23 11/21/23 History pantoprazole 40 mg tablet,delayed 40 mg PO BIDM 11/02/23 11/21/23 History release potassium chloride 20 mEq 20 meq PO QAM 11/02/23 11/21/23 History tablet,extended release(part/cryst) spironolactone 25 mg tablet 12.5 mg PO QAM 11/02/23 11/21/23 History torsemide 60 mg tablet 60 mg PO QAM 11/02/23 11/21/23 History Saccharomyces boulardii 250 mg 250 mg PO BID 11/21/23 11/21/23 History capsule (Florastor) ondansetron HCl 4 mg tablet 4 mg PO Q6H PRN NAUSEA/VOMITING 11/21/23 11/21/23 History oxymetazoline 0.05 % nasal spray 3 spray intranasal DIRECTED PRN 11/21/23 11/21/23 History EPISTAXIS Patient History Medical History Unspecified atrial fibrillation Metabolic encephalopathy History of pneumonia Difficulty in walking, not elsewhere classified Other fracture of right lower leg, subsequent encounter for closed fracture with routine healing Unspecified open wound, right ankle, subsequent encounter Proteus (mirabilis) (morganii) as the cause of diseases classified elsewhere Laceration without foreign body of left ear, subsequent encounter Cognitive communication deficit Dysphagia Wedge compression fracture of fourth lumbar vertebra with routine healing Stress fracture, pelvis, subsequent encounter for fracture with routine healing Weakness Pain in right leg Personal history of COVID-19 History of falling Other abnormalities of gait and mobility Pain in right hip Spinal stenosis, lumbosacral region Muscle weakness (generalized) Hyperlipidemia Hypoxemia Hypo-osmolality and hyponatremia Nocturnal hypoxia Right-sided congestive heart failure Sacral insufficiency fracture Cor pulmonale (chronic) Lumbar stenosis with neurogenic claudication Chronic GERD without esophagitis Right heart failure Dependence on nocturnal oxygen therapy RADHA (obstructive sleep apnea) Dyslipidemia Morbid obesity with BMI of 40.0-44.9, adult Mitral valve prolapse Osteoporosis Chronic acquired lymphedema HTN (hypertension) Chronic back pain Surgical History Hx of cholecystectomy Status post lumbar spine surgery for decompression of spinal cord 2018 Dr. Wan Status post kyphoplasty L3, L4, L5 2018 Dr. Wan Status post tonsillectomy Status post cataract surgery Status post appendectomy Family History Father Family history of colon cancer Brother Family history of prostate cancer Brother Family history of coronary artery disease Sister Family history of coronary artery disease Brother Family history of diabetes mellitus Social History Smoking Status: Never smoker Hx Alcohol Use: No Hx Substance Use: No Preferred Language: Maldivian Communication Ability: Effective Communication Ability Comment: confused Education Reviewer Required: No Beliefs That Will Affect Care: None marital status: Single Current Living Situation: Other Current Living Situation Comment: skilled care facility Feels Safe at Home: Yes Safety Concerns: Feels Safe At This Time Assistive Devices: Hospital Bed, Oxygen - Continuous, Walker and Wheelchair Review of Systems Review of Systems: All systems reviewed & are unremarkable except as noted in HPI & below Physical Exam Constitutional: WD/WN, vitals as above Respiratory: normal respiratory effort, lungs clear to auscultation Cardiovascular: RRR, no murmur, no edema Gastrointestinal (Abdomen): normal bowel sounds, soft, nontender, no hepatosplenomegaly Psychiatric: Orientation: alert and oriented x 3 Affect: euthymic affect Results & Data Vital Signs (Past 12 Hours) Vital Signs Temp Pulse Pulse Resp BP BP Pulse Ox 11/22/23 08:00 98.6 F 74 20 119/61 96 11/22/23 07:54 68 11/22/23 05:00 64 13 113/60 96 11/22/23 03:00 63 14 113/60 99 11/22/23 02:00 73 22 124/51 L 98 11/21/23 23:17 66 O2 Del Method O2 Flow Rate 11/22/23 08:00 Nasal Cannula 1 11/22/23 07:54 11/22/23 05:00 Room Air 11/22/23 03:00 Room Air 11/22/23 02:00 Room Air 11/21/23 23:17 Coding Level of Care Code 75531 ER DEPT VISIT MOD LVL 4 Diagnoses Anemia D64.9 Anemia type: unspecified type (1) Anemia Anemia type: unspecified type Qualified Code(s): D64.9 - Anemia, unspecified
--- NOTE | 2023-11-22 11:08 | Ultrasound Report ---
RIGHT UPPER EXTREMITY VENOUS DOPPLER ULTRASOUND CLINICAL HISTORY: Right upper extremity swelling COMPARISON STUDY: No previous studies for comparison. TECHNIQUE: Sonography of the venous system of the right upper extremity was performed. FINDINGS: The right internal jugular, subclavian, axillary, brachial, radial, ulnar, basilic and ceph alic veins were patent. No venous thrombus was identified within the right upper extremity. IMPRESSION: No venous thrombus within the right upper extremity. ACT 112: Negative or not required by law. Electronically signed by: Lan Wilcox M.D. 11/22/2023 11:07 AM
[2023-11-22 12:15] LABS: Hematocrit (blood only) 25.3 % (37.0-47.0); Hemoglobin 8.2 g/dl (12.0-16.0); Mean Corpuscular Hemoglobin 28.4 pg (25.0-34.0); Mean Corpuscular Hgb Conc 32.4 g/dL (32.0-36.0); Mean Corpuscular Volume 87.5 fL (80.0-100.0); Mean Platelet Volume 9.9 fL (9.4-12.4); Platelet Count 324 K/uL (130-400); RDW Coefficient of Variation 17.4 % (11.5-14.5); RDW Standard Deviation 55.6 fL (36.4-46.3); Red Blood Count 2.89 M/uL (4.20-5.40); White Blood Count 4.44 K/ul (4.8-10.8)
[2023-11-22] MEDS: OPTIRAY 320 125ml IV ONE (18:01)
--- NOTE | 2023-11-22 18:21 | CT Scan Report ---
CT angio abd pelvis wo/w con HISTORY: 83 years-old Female assess for GI bleeding acute generalized abdominal pain with GI bleed COMPARISON: 10/02/2023 TECHNIQUE: CTA abdomen and pelvis was obtained with and without IV contrast. 3-D coronal and sagittal measurements were obtained and transmitted for review. All measurements were obtained according to N ASCET criteria. A dose lowering technique was used consistent with the principals of BALDEV. FINDINGS: CTA: Mild cardiomegaly. Atherosclerosis of the abdominal aorta with mild tortuosity. No abdominal aortic aneurysm or dissection. Patent iliac and imaged femoral arteries. The arteries of the celiac trunk, t he superior and inferior mesenteric and renal arteries are patent. There is moderate narrowing at the origin of the left renal artery. No areas of acute active extravasation identified. CT ABDOMEN AND PELVIS: Moderate right with small to moderate left pleural effusions. Dependent bibasilar consolidation favor s atelectasis. No free air. Unremarkable spleen, atrophic pancreas and adrenal glands. The gallbladde r appears surgically absent. Unremarkable liver. Punctate cortical calcification of the superior pole left kidney. 3 mm nonobstructing calculus of the inferior pole left kidney. There are a few punctate calcifications involving the cortex of the right kidney. No ureteral calculi or hydronephrosis. Decompressed urinary bladder with Wallace catheter. Atr ophic uterus. No lymphadenopathy. Trace abdominal pelvic ascites. No bowel obstruction or bowel wall thickening. Appendectomy. Anasarca with body wall edema most pronounced in the right lateral abdomen. Degenerative changes of the spine, pelvis and hips. Healed chronic fractures of the pelvis. Chronic L3 and L4 compression deformities with kyphoplasty and retropulsion. IMPRESSION: 1. Unremarkable CTA. 2. No bowel obstruction or bowel wall thickening. 3. Punctate bilateral renal calcifications. No ureteral calculi or hydronephrosis. 4. Fluid overload with layering pleural effusions, small volume of ascites with anasarca. 5. Additional findings as above. ACT 112: Negative or not required by law. The above report was generated using voice recognition software. It may contain grammatical, syntax o r spelling errors. Electronically signed by: Tulio Leroy M.D. 11/22/2023 6:19 PM
[2023-11-22 19:05] LABS: Hematocrit (blood only) 22.1 % (37.0-47.0); Mean Corpuscular Hemoglobin 27.8 pg (25.0-34.0); Mean Corpuscular Hgb Conc 31.7 g/dL (32.0-36.0); Mean Corpuscular Volume 87.7 fL (80.0-100.0); Mean Platelet Volume 10.5 fL (9.4-12.4); Platelet Count 253 K/uL (130-400); RDW Coefficient of Variation 17.7 % (11.5-14.5); RDW Standard Deviation 56.2 fL (36.4-46.3); Red Blood Count 2.52 M/uL (4.20-5.40); White Blood Count 4.01 K/ul (4.8-10.8)
[2023-11-23 01:08] LABS: Hematocrit (blood only) 24.2 % (37.0-47.0); Hemoglobin 7.8 g/dl (12.0-16.0); Mean Corpuscular Hemoglobin 28.2 pg (25.0-34.0); Mean Corpuscular Hgb Conc 32.2 g/dL (32.0-36.0); Mean Corpuscular Volume 87.4 fL (80.0-100.0); Mean Platelet Volume 10.2 fL (9.4-12.4); Platelet Count 328 K/uL (130-400); RDW Coefficient of Variation 17.5 % (11.5-14.5); RDW Standard Deviation 55.4 fL (36.4-46.3); Red Blood Count 2.77 M/uL (4.20-5.40); White Blood Count 4.66 K/ul (4.8-10.8)
--- NOTE | 2023-11-23 06:46 | Hospitalist Progress Note ---
Date of Service November 23, 2023 Assessment & Plan (1) Blood loss anemia: (2) CKD (chronic kidney disease): (3) Paroxysmal A-fib: (4) Chronic GERD: (5) Acute pain of left lower extremity: (6) RADHA (obstructive sleep apnea): (7) HTN (hypertension): (8) Chronic osteomyelitis of right ankle: (9) Right-sided congestive heart failure: Plan Pt is a 83 yo female with a past medical history of R tib/fib s/p ORIF with osteomyelitis (completed Cefepime and on chronic Ciprofloxacin and Amoxicillin per Orthopedics), Afib (On Eliquis), prediabetes, CKDIII, hypertension, chronic right CHF, mitral valve prolapse, HLD, chronic lymphedema, RADHA, L4 compression fracture with severe spinal stenosis, and recent admission to [facility] for metabolic encephalopathy from RLL pneumonia who presents to the hospital on 11/20 from [facility] for acute anemia 6.9. Today, GI plan for enteroscopy per GI note, then will follow GI recs for diet progression. #Acute blood loss anemia - most recent hosp in Sep 2023, hemoglobin was 9-10, on admission here was 6.9, today 8.1 - heme + at [facility], - Patient's Eliquis has been on hold since 10/31/23 per [facility] - Patient had an EGD on 11/07/23 which was unremarkable - type and crossed for 3 units and s/p 1 unit PRBCs (11/21) - GI consulted; CTA done last night and unremark, enteroscopy today - NPO for scope today #R arm swelling - venous duplex US (11/21) wnl - recommend elevation of the arm to promote venous drainage; done last night with resolution of swelling favoring venous stasis vs thoracic outlet syndrome #Acute pain of left lower extremity - Patient has been experiencing left foot and ankle pain since a fall while walking at [facility] on 11/17 - Does have bruising over the dorsal aspect of the left foot and left lateral ankle - Xray of the left foot and left tib/fib were negative for fracture, so likely a sprain at this point - Will continue with prn Tylenol and ice for now as pain is mild at this time - Will keep on bedrest until she is stable from her GI bleed #Hx of Hypoxia -Patient was admitted to the [facility] service in September for acute hypoxic respiratory failure due to RLL pneumonia -Patient has been on 2L NC at all times since last admission and stable on that amount -CXR on admission shows mild pulmonary edema -Continue pulmonary Hygiene and PRN O2 to keep SpO2 at or above 92% #Paroxysmal A-fib - Currently in NSR - Continue metoprolol - Continue to hold Eliquis with acute GI bleed #Right-sided congestive heart failure - last echo 09/2023; EF 55-60%, no wall motion abnormalities - may give 20 mg IV lasix with blood transfusions if more are needed, 20 mg given with the first unit given overnight - Will hold torsemide and spironolactone for now - Monitor volume status daily and diurese as needed #Chronic osteomyelitis of right ankle - Developed OM after her right ankle fracture repair - Completed her course of IV cefepime during her last admission - Right ankle incision site appears well-healed and without signs of acute infection - Has continued on Amoxicillin and Ciprofloxacin at the recommendation of Orthopedics for chronic suppressive therapy - Continue Amoxicillin and Ciprofloxacin #HTN (hypertension) -Stable -Will continue metoprolol but will hold home diuretics for now to prevent hypotension #RADHA (obstructive sleep apnea) -HS CPAP ordered -Continue 2L NC at all times #Chronic GERD -Continue IV pantoprazole DVT ppx; deferred in setting of acute GI bleed Admission and Anticipated Discharge Date Admission Date: November 21, 2023 Supervising Physician Co-Signing Physician Notes Attending Physician Supervision Note: I independently interviewed and examined the patient and verified the dasilva history and physical, reviewed labs and image studies and agree with findings and care plan noted above. Acute blood loss anemia sec to GI bleed - -s/p PRBC. h/h stable. -EGD today - Normal. For colonoscopy in am. -On PPI -Eliquis has been held since 10/30 from [facility]. Acute on chronic diastolic heart failure in conjunction with hypoproteinemia -s/p lasix dose in ED. No UO measured from ED but still 1500ml neg -monitor volume status closely in setting of GI bleed. Hypoproteinemia/Malnutrition - -dietary consult Subjective Pt is a 83 yo female with a past medical history of R tib/fib s/p ORIF with osteomyelitis (completed Cefepime and on chronic Ciprofloxacin and Amoxicillin per Orthopedics), Afib (On Eliquis), prediabetes, CKDIII, hypertension, chronic right CHF, mitral valve prolapse, HLD, chronic lymphedema, RADHA, L4 compression fracture with severe spinal stenosis, and recent admission to [facility] for metabolic encephalopathy from RLL pneumonia who presents to the hospital on 11/20 from [facility] for acute anemia 6.9. Today, pt states she is feeling okay. She states she had a few bowel movements last night that had some blood in them. She states ultimately if there is a question of doing a GI scope she would rather have it done now while she is here than come back for one at a later date. Otherwise, she is feeling fine. She propped up her R arm last night and is pleased that the swelling has entirely resolved this morning. Review of Systems Review of Systems: Per HPI. Physical Exam Physical Exam: General:Alert, no acute distress, HEENT: Normocephalic, moist oral mucosa, Cardio: Regular rate and rhythm, no murmur, bilateral lower extremity edema noted once again, right arm without swelling today Resp:Lungs clear to auscultation b/l, no wheezes or rhonchi, GI: Soft, nondistended, bowel sounds active, Skin: Warm, pink, dry, Psych: Mood-affect congruence. Results & Data Results & Data Vital Signs (Past 12 Hours) Vital Signs Temp Pulse Pulse Resp BP Pulse Ox O2 Del Method 11/23/23 04:06 37.1 C 70 16 136/79 98 Nasal Cannula 11/22/23 23:52 36.7 C 66 16 111/70 97 Nasal Cannula 11/22/23 23:00 60 11/22/23 21:00 Nasal Cannula 11/22/23 20:12 37 C 60 18 94/64 L 93 Nasal Cannula O2 Flow Rate 11/23/23 04:06 1 11/22/23 23:52 1 11/22/23 23:00 11/22/23 21:00 2 11/22/23 20:12 2 Resident Activity Tracking Resident Involvement: Resident Care Provided Care Provided: Adult Hospital Medicine
[2023-11-23 07:29] LABS: Hematocrit (blood only) 26.3 % (37.0-47.0); Hemoglobin 8.1 g/dl (12.0-16.0); Mean Corpuscular Hemoglobin 27.4 pg (25.0-34.0); Mean Corpuscular Hgb Conc 30.8 g/dL (32.0-36.0); Mean Corpuscular Volume 88.9 fL (80.0-100.0); Mean Platelet Volume 10.2 fL (9.4-12.4); Platelet Count 334 K/uL (130-400); RDW Coefficient of Variation 17.3 % (11.5-14.5); RDW Standard Deviation 55.5 fL (36.4-46.3); Red Blood Count 2.96 M/uL (4.20-5.40); White Blood Count 4.87 K/ul (4.8-10.8)
[2023-11-23 08:17] LABS: INR 1.1 (0.9-1.1); Prothrombin Time 12.4 Seconds (9.0-12.0)
[2023-11-23 08:39] LABS: Albumin Globulin Ratio 1.2 (0.9-2); Albumin Level 2.8 gm/dl (3.4-5.0); BUN Creatinine Ratio 27.2 (10-20); Bilirubin,Total 0.5 mg/dl (0.2-1.0); Calcium 9.1 mg/dl (8.6-10.3); Creatinine Clr Calc Pharmacy 42.3 ml/min; Est GFR (African American) 51.1 ml/min; Est GFR (Non-African American) 44.1 ml/min; Globulin 2.4 gm/dl (2.5-4.0); Magnesium 1.7 mg/dl (1.7-2.4); Potassium 3.5 mmol/L (3.5-5.1); Total Protein 5.2 gm/dl (6.0-8.3)
--- NOTE | 2023-11-23 09:49 | History & Physical Bridge Note ---
Date of Service November 23, 2023 History & Physical Bridge Note I have examined the patient, reviewed the History & Physical and in the interval since the performance of the History & Physical I have noted the following changes of clinical significance: no changes noted. Patient reports several dark bowel movements over night. hgb had dropped from 8.2 to 7 last evening, until coming back up this morning to 7.8. she underwent a CTA that was unremarkable. she denies any nausea, vomiting, abdominal pain, sob, or chest pain. she has been NPO. Discussed case with Dr. Rico who advised on plan. will plan for push enteroscopy today to further evaluate. pt was agreeable with this. Supervising Physician Co-Signing Physician Notes Agree with BRENTON Garner as above Abd: Soft, NT, ND, +BS Continue current therapy and supportive care Proceed with Push Enteroscopy
--- NOTE | 2023-11-23 10:22 | Anesthesiology Consultation ---
Date of Service November 23, 2023 History Surgery Operation Date: 11/23/23 17:00 Proposed Procedures p Small Bowel Enteroscopy Dr Rico - Peter Hernandez Case, DO Height/Weight Height: 4 ft 10 in Weight: 121 kg Allergies Allergy/AdvReac Type Severity Reaction Status Date / Time demeclocycline Allergy Unknown ON CENTRE Verified 11/21/23 18:14 CARE MED LIST sulfamethoxazole Allergy Unknown ON CENTRE Verified 11/21/23 18:14 CARE MED LIST trimethoprim Allergy Unknown ON CENTRE Verified 11/21/23 18:14 CARE MED LIST ropinirole AdvReac Intermediate fluid Verified 11/21/23 18:14 retention pregabalin [From Lyrica] AdvReac Unknown Unknown Verified 11/21/23 18:14 Medications Home Medications Medication Instructions Recorded Confirmed Last Taken omega 6-zgu-zet-fish oil 1,000 mg 1 cap PO QAM 05/05/18 11/21/23 11/21/23 (120 mg-180 mg) capsule (Fish Oil) raloxifene 60 mg tablet 60 mg PO QAM osteoporosis 05/05/18 11/21/23 11/21/23 fenofibrate 160 mg tablet 160 mg PO DAILY 12/30/19 11/21/23 11/21/23 dextromethorphan-guaifenesin 10 10 ml PO Q4H PRN Cough 03/16/22 11/21/23 Unknown mg-100 mg/5 mL oral liquid (Tussin DM) lorazepam 0.5 mg tablet 0.5 mg PO HS 03/16/22 11/21/23 11/20/23 vit C 250 mg-vit E 90 mg-zinc 40 1 tab PO BIDM 03/16/22 11/21/23 11/21/23 08:30 mg-copper 1 xu-emdaun-dsalzf capsule (PreserVision AREDS-2) atropine 1 % eye drops 1 drp OPR Q8H PRN Dry Eye(S) 07/12/23 11/21/23 Unknown escitalopram oxalate 10 mg tablet 10 mg PO QAM 07/12/23 11/21/23 11/21/23 ferrous sulfate 142 mg (45 mg 142 mg PO QAM 07/12/23 11/21/23 11/21/23 iron) tablet,extended release gabapentin 100 mg capsule 100 mg PO BIDM 07/12/23 11/21/2324 08:30 guaifenesin 600 mg tablet, 600 mg PO BID PRN Cough 07/12/23 11/21/23 Unknown extended release 12 hr (Mucus Relief ER) L.acidop,casei,lactis,rham-B.lact,karen 2 cap PO QAM 10/02/23 11/21/23 11/21/23 625 mg (10 billion cell) capsule (Advanced Probiotic) acetaminophen 325 mg tablet 650 mg PO Q6H PRN fever/pain 10/02/23 11/21/23 Unknown (Tylenol) loperamide 2 mg capsule 2 mg PO Q3H PRN Diarrhea 10/02/23 11/21/23 Unknown amoxicillin 500 mg capsule 500 mg PO TID #90 caps 10/15/23 11/21/23 11/21/23 06:30 ciprofloxacin HCl 500 mg tablet 500 mg PO BID #60 tabs 10/15/23 11/21/23 11/21/23 08:30 metoprolol succinate 25 mg 12.5 mg (1/2 x 25 mg) PO BID #30 10/15/23 11/21/23 11/21/23 08:30 tablet,extended release 24 hr tabs Protein Liquid 30 ml PO BID r/t wound support 11/02/23 11/21/23 11/21/23 08:30 pantoprazole 40 mg tablet,delayed 40 mg PO BIDM 11/02/23 11/21/23 11/21/23 08:30 release potassium chloride 20 mEq 20 meq PO QAM 11/02/23 11/21/23 11/21/23 tablet,extended release(part/cryst) spironolactone 25 mg tablet 12.5 mg PO QAM 11/02/23 11/21/23 11/21/23 torsemide 60 mg tablet 60 mg PO QAM 11/02/23 11/21/23 11/21/23 Saccharomyces boulardii 250 mg 250 mg PO BID 11/21/23 11/21/23 11/21/23 08:30 capsule (Florastor) ondansetron HCl 4 mg tablet 4 mg PO Q6H PRN NAUSEA/VOMITING 11/21/23 11/21/23 Unknown oxymetazoline 0.05 % nasal spray 3 spray intranasal DIRECTED PRN 11/21/23 11/21/23 Unknown EPISTAXIS Active Medications Generic Name Dose Route Start Last Admin Trade Name Kg PRN Reason Stop Dose Admin Amoxicillin 500 mg 11/21/23 21:00 11/23/23 08:03 Amoxicillin 500 Mg Cap PO 12/12/23 20:59 500 mg TID HAN Administration Protocol Ciprofloxacin 500 mg 11/21/23 21:00 11/23/23 08:04 Ciprofloxacin 500 Mg Tab PO 12/12/23 20:59 500 mg BID HAN Administration Protocol Escitalopram Oxalate 10 mg 11/22/23 09:00 11/23/23 08:04 Escitalopram Oxalate 10 Mg Tab PO 12/22/23 08:59 10 mg QAM HAN Administration Gabapentin 100 mg 11/22/23 08:00 11/23/23 08:03 Gabapentin 100 Mg Cap PO 12/22/23 07:59 100 mg BIDM HAN Administration Pantoprazole Sodium 40 mg/ 10 mls @ 5 mls/min 11/22/23 05:00 11/23/23 08:05 Syringe IV 12/22/23 04:59 5 mls/min Q12H HAN Administration Lorazepam 0.5 mg 11/21/23 21:00 11/22/23 21:21 Lorazepam 0.5 Mg Tab PO 12/21/23 20:59 0.5 mg HS HAN Administration Metoprolol Succinate 12.5 mg 11/21/23 21:00 11/23/23 08:04 Metoprolol Succ 25mg Ext Rel Tab PO 12/21/23 20:59 12.5 mg BID HAN Administration Past Medical History Medical History Unspecified atrial fibrillation Metabolic encephalopathy History of pneumonia Difficulty in walking, not elsewhere classified Other fracture of right lower leg, subsequent encounter for closed fracture with routine healing Unspecified open wound, right ankle, subsequent encounter Proteus (mirabilis) (morganii) as the cause of diseases classified elsewhere Laceration without foreign body of left ear, subsequent encounter Cognitive communication deficit Dysphagia Wedge compression fracture of fourth lumbar vertebra with routine healing Stress fracture, pelvis, subsequent encounter for fracture with routine healing Weakness Pain in right leg Personal history of COVID-19 History of falling Other abnormalities of gait and mobility Pain in right hip Spinal stenosis, lumbosacral region Muscle weakness (generalized) Hyperlipidemia Hypoxemia Hypo-osmolality and hyponatremia Nocturnal hypoxia Right-sided congestive heart failure Sacral insufficiency fracture Cor pulmonale (chronic) Lumbar stenosis with neurogenic claudication Chronic GERD without esophagitis Right heart failure Dependence on nocturnal oxygen therapy RADHA (obstructive sleep apnea) Dyslipidemia Morbid obesity with BMI of 40.0-44.9, adult Mitral valve prolapse Osteoporosis Chronic acquired lymphedema HTN (hypertension) Chronic back pain Past Family History Family History Father Family history of colon cancer Brother Family history of prostate cancer Brother Family history of coronary artery disease Sister Family history of coronary artery disease Brother Family history of diabetes mellitus Past Surgical History Surgical History Hx of cholecystectomy Status post lumbar spine surgery for decompression of spinal cord 2017 Dr. Wan Status post kyphoplasty L3, L4, L5 2017 Dr. Wan Status post tonsillectomy Status post cataract surgery Status post appendectomy Social History Smoking Status: Never smoker Hx Alcohol Use: No Hx Substance Use: No substance use type: does not use Physical Exam Vital Signs Last Vital Signs Temp 36.9 C 11/23/23 07:51 Pulse 69 11/23/23 07:51 Resp 16 11/23/23 07:51 BP 114/73 11/23/23 07:51 Pulse Ox 99 11/23/23 07:51 O2 Del Method Nasal Cannula 11/23/23 07:51 O2 Flow Rate 1.0 11/23/23 07:51 Testing Laboratory Results 11/23/23 06:54 11/23/23 06:54 PT 12.4 Seconds (9.0-12.0) H 11/23/23 06:54 INR 1.1 (0.9-1.1) 11/23/23 06:54 APTT 25 Seconds (21-31) 11/21/23 17:48 Blood Type O Positive 11/21/23 16:15 Antibody Screen NEGATIVE 11/21/23 16:15 Electrocardiogram Date: 11/21/2321-Nov-2023 15:09:49 [facility]-EDSTAT ROUTINE RETRIEVAL Sinus rhythm with 1st degree A-V block Low voltage QRS Nonspecific ST abnormality Abnormal ECG When compared with ECG of 04-OCT-2023 09:05, Sinus rhythm has replaced Atrial fibrillation ST no longer depressed in Lateral leads T wave inversion no longer evident in Inferior leads T wave inversion no longer evident in Lateral leads 25mm/s10mm/[id number] 243CID: 19Unconfirmed Vent. rate 90 BPM AK interval 250 ms QRS duration 88 ms QT/QTc 348/425 ms
--- NOTE | 2023-11-23 10:25 | Anesthesiology Consultation ---
Date of Service November 23, 2023 Assessment & Plan Chart Review Chart Review: Acceptable Risk for Surgery, Patient NOT seen in Pre Admission Testing and data entry technician initiated Consults Requested none Proposed Anesthesia Anesthesia Type: MAC History Surgery Operation Date: 11/23/23 17:00 Proposed Procedures p Small Bowel Enteroscopy Dr Rico - Peter Hernandez Case, DO Height/Weight Height: 4 ft 10 in Weight: 121 kg Allergies Allergy/AdvReac Type Severity Reaction Status Date / Time demeclocycline Allergy Unknown ON CENTRE Verified 11/21/23 18:14 CARE MED LIST sulfamethoxazole Allergy Unknown ON CENTRE Verified 11/21/23 18:14 CARE MED LIST trimethoprim Allergy Unknown ON CENTRE Verified 11/21/23 18:14 CARE MED LIST ropinirole AdvReac Intermediate fluid Verified 11/21/23 18:14 retention pregabalin [From Lyrica] AdvReac Unknown Unknown Verified 11/21/23 18:14 Medications Home Medications Medication Instructions Recorded Confirmed Last Taken omega 3-rni-vsp-fish oil 1,000 mg 1 cap PO QAM 05/05/18 11/21/23 11/21/23 (120 mg-180 mg) capsule (Fish Oil) raloxifene 60 mg tablet 60 mg PO QAM osteoporosis 05/05/18 11/21/23 11/21/23 fenofibrate 160 mg tablet 160 mg PO DAILY 12/30/19 11/21/23 11/21/23 dextromethorphan-guaifenesin 10 10 ml PO Q4H PRN Cough 03/16/22 11/21/23 Unknown mg-100 mg/5 mL oral liquid (Tussin DM) lorazepam 0.5 mg tablet 0.5 mg PO HS 03/16/22 11/21/23 11/20/23 vit C 250 mg-vit E 90 mg-zinc 40 1 tab PO BIDM 03/16/22 11/21/23 11/21/23 08:30 mg-copper 1 la-repsqy-jpmizi capsule (PreserVision AREDS-2) atropine 1 % eye drops 1 drp OPR Q8H PRN Dry Eye(S) 07/12/23 11/21/23 Unknown escitalopram oxalate 10 mg tablet 10 mg PO QAM 07/12/23 11/21/23 11/21/23 ferrous sulfate 142 mg (45 mg 142 mg PO QAM 07/12/23 11/21/23 11/21/23 iron) tablet,extended release gabapentin 100 mg capsule 100 mg PO BIDM 07/12/23 11/21/23 11/21/23 08:30 guaifenesin 600 mg tablet, 600 mg PO BID PRN Cough 07/12/23 11/21/23 Unknown extended release 12 hr (Mucus Relief ER) L.acidop,casei,lactis,rham-B.lact,karen 2 cap PO QAM 10/02/23 11/21/23 11/21/23 625 mg (10 billion cell) capsule (Advanced Probiotic) acetaminophen 325 mg tablet 650 mg PO Q6H PRN fever/pain 10/02/23 11/21/23 Unknown (Tylenol) loperamide 2 mg capsule 2 mg PO Q3H PRN Diarrhea 10/02/23 11/21/23 Unknown amoxicillin 500 mg capsule 500 mg PO TID #90 caps 10/15/23 11/21/23 11/21/23 06:30 ciprofloxacin HCl 500 mg tablet 500 mg PO BID #60 tabs 10/15/23 11/21/23 11/21/23 08:30 metoprolol succinate 25 mg 12.5 mg (1/2 x 25 mg) PO BID #30 10/15/23 11/21/23 11/21/23 08:30 tablet,extended release 24 hr tabs Protein Liquid 30 ml PO BID r/t wound support 11/02/23 11/21/23 11/21/23 08:30 pantoprazole 40 mg tablet,delayed 40 mg PO BIDM 11/02/23 11/21/23 11/21/23 08:30 release potassium chloride 20 mEq 20 meq PO QAM 11/02/23 11/21/23 11/21/23 tablet,extended release(part/cryst) spironolactone 25 mg tablet 12.5 mg PO QAM 11/02/23 11/21/23 11/21/23 torsemide 60 mg tablet 60 mg PO QAM 11/02/23 11/21/23 11/21/23 Saccharomyces boulardii 250 mg 250 mg PO BID 11/21/23 11/21/23 11/21/23 08:30 capsule (Florastor) ondansetron HCl 4 mg tablet 4 mg PO Q6H PRN NAUSEA/VOMITING 11/21/23 11/21/23 Unknown oxymetazoline 0.05 % nasal spray 3 spray intranasal DIRECTED PRN 11/21/23 11/21/23 Unknown EPISTAXIS Active Medications Generic Name Dose Route Start Last Admin Trade Name Kg PRN Reason Stop Dose Admin Amoxicillin 500 mg 11/21/23 21:00 11/23/23 08:03 Amoxicillin 500 Mg Cap PO 12/12/23 20:59 500 mg TID HAN Administration Protocol Ciprofloxacin 500 mg 11/21/23 21:00 11/23/23 08:04 Ciprofloxacin 500 Mg Tab PO 12/12/23 20:59 500 mg BID HAN Administration Protocol Escitalopram Oxalate 10 mg 11/22/23 09:00 11/23/23 08:04 Escitalopram Oxalate 10 Mg Tab PO 12/22/23 08:59 10 mg QAM HAN Administration Gabapentin 100 mg 11/22/23 08:00 11/23/23 08:03 Gabapentin 100 Mg Cap PO 12/22/23 07:59 100 mg BIDM HAN Administration Pantoprazole Sodium 40 mg/ 10 mls @ 5 mls/min 11/22/23 05:00 11/23/23 08:05 Syringe IV 12/22/23 04:59 5 mls/min Q12H HAN Administration Lorazepam 0.5 mg 11/21/23 21:00 11/22/23 21:21 Lorazepam 0.5 Mg Tab PO 12/21/23 20:59 0.5 mg HS HAN Administration Metoprolol Succinate 12.5 mg 11/21/23 21:00 11/23/23 08:04 Metoprolol Succ 25mg Ext Rel Tab PO 12/21/23 20:59 12.5 mg BID HAN Administration Past Medical History Medical History Unspecified atrial fibrillation Metabolic encephalopathy History of pneumonia Difficulty in walking, not elsewhere classified Other fracture of right lower leg, subsequent encounter for closed fracture with routine healing Unspecified open wound, right ankle, subsequent encounter Proteus (mirabilis) (morganii) as the cause of diseases classified elsewhere Laceration without foreign body of left ear, subsequent encounter Cognitive communication deficit Dysphagia Wedge compression fracture of fourth lumbar vertebra with routine healing Stress fracture, pelvis, subsequent encounter for fracture with routine healing Weakness Pain in right leg Personal history of COVID-19 History of falling Other abnormalities of gait and mobility Pain in right hip Spinal stenosis, lumbosacral region Muscle weakness (generalized) Hyperlipidemia Hypoxemia Hypo-osmolality and hyponatremia Nocturnal hypoxia Right-sided congestive heart failure Sacral insufficiency fracture Cor pulmonale (chronic) Lumbar stenosis with neurogenic claudication Chronic GERD without esophagitis Right heart failure Dependence on nocturnal oxygen therapy RADHA (obstructive sleep apnea) Dyslipidemia Morbid obesity with BMI of 40.0-44.9, adult Mitral valve prolapse Osteoporosis Chronic acquired lymphedema HTN (hypertension) Chronic back pain Past Family History Family History Father Family history of colon cancer Brother Family history of prostate cancer Brother Family history of coronary artery disease Sister Family history of coronary artery disease Brother Family history of diabetes mellitus Past Surgical History Surgical History Hx of cholecystectomy Status post lumbar spine surgery for decompression of spinal cord 2017 Dr. Wan Status post kyphoplasty L3, L4, L5 2017 Dr. Wan Status post tonsillectomy Status post cataract surgery Status post appendectomy Social History Smoking Status: Never smoker Hx Alcohol Use: No Hx Substance Use: No substance use type: does not use Physical Exam Vital Signs Last Vital Signs Temp 36.9 C 11/23/23 07:51 Pulse 69 11/23/23 07:51 Resp 16 11/23/23 07:51 BP 114/73 11/23/23 07:51 Pulse Ox 99 11/23/23 07:51 O2 Del Method Nasal Cannula 11/23/23 07:51 O2 Flow Rate 1.0 11/23/23 07:51 Testing Laboratory Results 11/23/23 06:54 11/23/23 06:54 PT 12.4 Seconds (9.0-12.0) H 11/23/23 06:54 INR 1.1 (0.9-1.1) 11/23/23 06:54 APTT 25 Seconds (21-31) 11/21/23 17:48 Blood Type O Positive 11/21/23 16:15 Antibody Screen NEGATIVE 11/21/23 16:15 Electrocardiogram Date: 11/21/2321-Nov-2023 15:09:49 [facility]-EDSTAT ROUTINE RETRIEVAL Sinus rhythm with 1st degree A-V block Low voltage QRS Nonspecific ST abnormality Abnormal ECG When compared with ECG of 04-OCT-2023 09:05, Sinus rhythm has replaced Atrial fibrillation ST no longer depressed in Lateral leads T wave inversion no longer evident in Inferior leads T wave inversion no longer evident in Lateral leads 25mm/s10mm/[id number] 243CID: 19Unconfirmed Vent. rate 90 BPM NC interval 250 ms QRS duration 88 ms QT/QTc 348/425 ms P Chest X-Ray Date: 11/21/23 XR chest 1V portable CLINICAL HISTORY: fall TECHNIQUE: Single frontal radiograph of the chest was obtained. Comparison: Comparison is made to chest radiograph 10/11/2023 FINDINGS: No lines and tubes are seen. Cardiomegaly is noted. The aortic arch is calcified. Prominence and cephalization of the vasculature is seen. No evidence of pleural effusion or pneumothorax. IMPRESSION: Cardiomegaly and mild pulmonary edema. Echocardiogram Date: 10/04/23 EF: 55-60 LV Function: normal RWMA: + none Other Findings: + LVH (mild) and + diastolic dysfunction (grade1)
--- NOTE | 2023-11-23 11:46 | GI REPORT ---
Patient Name: Meera Clement Procedure Date: 11/23/2023 11:13 AM Date of : 1940 Admit Type: Inpatient Age: 83 Gender: Female Attending MD: Peter Rico DO, Procedure: Upper GI endoscopy Providers: Peter Rico DO Referring MD: Yumiko Moreland Indications: Acute post hemorrhagic anemia, Melena Medicines: Monitored Anesthesia Care Complications: No immediate complications. Estimated Blood Loss: Estimated blood loss: none. Procedure: Pre-Anesthesia Assessment: - Prior to the procedure, a History and Physical was performed, and patient medications and allergies were reviewed. The patient's tolerance of previous anesthesia was also reviewed. The risks and benefits of the procedure and the sedation options and risks were discussed with the patient. All questions were answered, and informed consent was obtained. Prior Anticoagulants: The patient has taken no anticoagulant or antiplatelet agents. ASA Grade Assessment: IV - A patient with severe systemic disease that is a constant threat to life. After reviewing the risks and benefits, the patient was deemed in satisfactory condition to undergo the procedure. After obtaining informed consent, the endoscope was passed under direct vision. Throughout the procedure, the patient's blood pressure, pulse, and oxygen saturations were monitored continuously. The Colonoscope was introduced through the mouth, and advanced to the jejunum. The upper GI endoscopy was accomplished without difficulty. The patient tolerated the procedure well. Findings: The esophagus was normal. The stomach was normal. The examined duodenum was normal. The examined jejunum was normal. Impression: - Normal esophagus. - Normal stomach. - Normal examined duodenum. - Normal examined jejunum. - No specimens collected. Recommendation: - [facility] care. - Clear liquid diet. - Perform a colonoscopy tomorrow. - Continue present medications. Peter Rico DO 11/23/2023 11:45:36 AM This report has been signed electronically. Note Initiated On: 11/23/2023 11:13 AM Number of Addenda: 0 I attest to the content of the Intraoperative Record and orders documented therein, exceptions below {[id number]}
[2023-11-23] MEDS: LIDOCAINE 2% 2 ML VIAL/AMP(20MG/ML) INFIL ONE ×2 (12:32)
[2023-11-23] MEDS: PROPOFOL IV EMULSION 10 MG/ML 20 ML VIAL IV ONE (12:32)
[2023-11-23 13:32] LABS: Hematocrit (blood only) 27.5 % (37.0-47.0); Hemoglobin 8.7 g/dl (12.0-16.0)
--- NOTE | 2023-11-23 15:07 | Electrocardiogram Report ---
Test Reason : Blood Pressure : / mmHG Vent. Rate : 090 BPM Atrial Rate : 090 BPM P-R Int : 250 ms QRS Dur : 088 ms QT Int : 348 ms P-R-T Axes : 052 -08 034 degrees QTc Int : 425 ms Sinus rhythm with 1st degree A-V block Low voltage QRS Nonspecific ST abnormality Abnormal ECG When compared with ECG of 04-OCT-2023 09:05, Sinus rhythm has replaced Atrial fibrillation ST no longer depressed in Lateral leads T wave inversion no longer evident in Inferior leads T wave inversion no longer evident in Lateral leads Confirmed by Ugo Padilla ([id number]) on 11/23/2023 3:07:30 PM Referred By: Confirmed By:Ugo Padilla
--- NOTE | 2023-11-23 15:51 | Anesthesiology Progress Note ---
Date of Service November 23, 2023 Anesthesia Post Procedure Vital Signs Vital Signs: Temp Pulse Pulse Resp BP BP Pulse Ox 11/23/23 12:12 69 18 109/62 100 11/23/23 11:57 71 18 112/58 L 99 11/23/23 11:42 36 C L 71 18 94/45 L 96 11/23/23 10:42 36 C L 71 18 136/65 99 11/23/23 08:00 64 11/23/23 08:00 11/23/23 07:51 36.9 C 69 16 114/73 99 11/23/23 04:06 37.1 C 70 16 136/79 98 11/22/23 23:52 36.7 C 66 16 111/70 97 11/22/23 23:00 60 11/22/23 21:00 11/22/23 20:12 37 C 60 18 94/64 L 93 O2 Del Method O2 Flow Rate 11/23/23 12:12 Oxymask 2 11/23/23 11:57 Oxymask 4 11/23/23 11:42 Nasal Cannula 2 11/23/23 10:42 Nasal Cannula 2 11/23/23 08:00 11/23/23 08:00 Nasal Cannula 2 11/23/23 07:51 Nasal Cannula 1.0 11/23/23 04:06 Nasal Cannula 1 11/22/23 23:52 Nasal Cannula 1 11/22/23 23:00 11/22/23 21:00 Nasal Cannula 2 11/22/23 20:12 Nasal Cannula 2 Transfer of Care Handoff Completed per policy Notes Mental Status: alert / awake / arousable and participated in evaluation Patient Amnestic to Procedure: Yes Nausea / Vomiting: adequately controlled Pain: adequately controlled Airway Patency, RR, SpO2: stable & adequate BP & HR: stable & adequate Hydration State: stable & adequate Anesthetic Complications: no major complications apparent
[2023-11-23] MEDS: LAVAGE SOLUTION 4000ML PO SCH (16:45)
[2023-11-23 17:12] LABS: Hematocrit (blood only) 27.7 % (37.0-47.0); Hemoglobin 8.4 g/dl (12.0-16.0)
[2023-11-23 22:49] LABS: Hematocrit (blood only) 27.6 % (37.0-47.0); Hemoglobin 8.5 g/dl (12.0-16.0)
--- NOTE | 2023-11-24 06:51 | Hospitalist Progress Note ---
Date of Service November 24, 2023 Assessment & Plan (1) Blood loss anemia: (2) CKD (chronic kidney disease): (3) Paroxysmal A-fib: (4) Chronic GERD: (5) Acute pain of left lower extremity: (6) RADHA (obstructive sleep apnea): (7) HTN (hypertension): (8) Chronic osteomyelitis of right ankle: (9) Right-sided congestive heart failure: Plan Pt is a 83 yo female with a past medical history of R tib/fib s/p ORIF with osteomyelitis (completed Cefepime and on chronic Ciprofloxacin and Amoxicillin per Orthopedics), Afib (On Eliquis), prediabetes, CKDIII, hypertension, chronic right CHF, mitral valve prolapse, HLD, chronic lymphedema, RADHA, L4 compression fracture with severe spinal stenosis, and recent admission to [facility] for metabolic encephalopathy from RLL pneumonia who presents to the hospital on 11/20 from [facility] for acute anemia 6.9. Today, GI plan for colonoscopy. After, will discuss po trial of diet as tolerated. #Acute blood loss anemia - most recent hosp in Sep 2023, hemoglobin was 9-10, on admission here was 6.9, today 8.1 - heme + at [facility], - Patient's Eliquis has been on hold since 10/31/23 per [facility] Staff - Patient had an EGD on 11/07/23 which was unremarkable - type and crossed for 3 units and s/p 1 unit PRBCs (11/21) - GI consulted; CTA done 11/21 and unremark, - NPO for colonoscopy today #R arm swelling - venous duplex US (11/21) wnl - recommend elevation of the arm to promote venous drainage #Acute pain of left lower extremity - Patient has been experiencing left foot and ankle pain since a fall while walking at [facility] on 11/17 - Does have bruising over the dorsal aspect of the left foot and left lateral ankle - Xray of the left foot and left tib/fib were negative for fracture, so likely a sprain - Will continue with prn Tylenol and ice for now as pain is mild at this time - Will keep on bedrest until she is stable from her GI bleed #Hx of Hypoxia -Patient was admitted to the [facility] service in September for acute hypoxic respiratory failure due to RLL pneumonia -Patient has been on 2L NC at all times since last admission and stable on that amount -CXR on admission shows mild pulmonary edema -Continue pulmonary Hygiene and PRN O2 to keep SpO2 at or above 92% #Paroxysmal A-fib - Currently in NSR - Continue metoprolol - Continue to hold Eliquis with acute GI bleed #Right-sided congestive heart failure - last echo 09/2023; EF 55-60%, no wall motion abnormalities - may give 20 mg IV lasix with blood transfusions if more are needed, 20 mg given with the first unit given overnight - Will hold torsemide and spironolactone for now - Monitor volume status daily and diurese as needed #Chronic osteomyelitis of right ankle - Developed OM after her right ankle fracture repair - Completed her course of IV cefepime during her last admission - Right ankle incision site appears well-healed and without signs of acute infection - Has continued on Amoxicillin and Ciprofloxacin at the recommendation of Orthopedics for chronic suppressive therapy - Continue Amoxicillin and Ciprofloxacin #HTN (hypertension) -Stable -Will continue metoprolol but will hold home diuretics for now to prevent hypotension #RADHA (obstructive sleep apnea) -HS CPAP ordered -Continue 2L NC at all times #Chronic GERD -Continue IV pantoprazole DVT ppx; deferred in setting of acute GI bleed Admission and Anticipated Discharge Date Admission Date: November 21, 2023 Supervising Physician Co-Signing Physician Notes Attending Physician Supervision Note: I independently interviewed and examined the patient and verified the dasilva histor y and physical, reviewed labs and image studies and agree with findings and care plan noted above. Acute blood loss anemia sec to GI bleed - -Eliquis has been held since 10/30 from center care due to recurrent bleed. -s/p PRBC. h/h stable. -EGD 11/22 - Normal. Colonoscopy 11/23 - no source of active bleeding -On PPI -Will discuss with GI about eliquis resumption. Acute on chronic diastolic heart failure -s/p lasix dose in ED. No UO measured from ED but still 1700ml neg Hypoproteinemia/Malnutrition - -dietary consult SCD Subjective Pt is a 83 yo female with a past medical history of R tib/fib s/p ORIF with osteomyelitis (completed Cefepime and on chronic Ciprofloxacin and Amoxicillin per Orthopedics), Afib (On Eliquis), prediabetes, CKDIII, hypertension, chronic right CHF, mitral valve prolapse, HLD, chronic lymphedema, RADHA, L4 compression fracture with severe spinal stenosis, and recent admission to [facility] for metabolic encephalopathy from RLL pneumonia who presents to the hospital on 11/20 from [facility] for acute anemia 6.9. Today, pt states she feels okay. No abdominal pain, nausea, or vomiting. She states her stomach does feel a bit "uneasy" today but she has not eaten since she is NPO. She anticipates the colonoscopy today and is just feeling restless to get it over with at this time. No further questions or complaints. Review of Systems Review of Systems: Per HPI. Physical Exam Physical Exam: General:Alert, no acute distress, HEENT: Normocephalic, moist oral mucosa, Cardio: Regular rate and rhythm, no murmur, bilateral lower extremity edema persists Resp:Lungs clear to auscultation b/l, no wheezes or rhonchi, GI: Soft, nondistended, bowel sounds active, Skin: Warm, pink, dry, Psych: Mood-affect congruence. Results & Data Results & Data Vital Signs (Past 12 Hours) Vital Signs Temp Pulse Resp BP BP Pulse Ox O2 Del Method 11/24/23 04:13 36.3 C L 74 18 122/75 98 Nasal Cannula 11/24/23 01:28 36.5 C 70 17 117/66 98 Nasal Cannula 11/23/23 22:08 36.7 C 76 18 123/73 99 Nasal Cannula 11/23/23 20:00 Nasal Cannula O2 Flow Rate 11/24/23 04:13 2.0 11/24/23 01:28 2.0 11/23/23 22:08 2.0 11/23/23 20:00 2 Resident Activity Tracking Resident Involvement: Resident Care Provided Care Provided: Adult Hospital Medicine
--- NOTE | 2023-11-24 08:20 | Anesthesiology Consultation ---
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 Jacky Hernandez Case, DO Height/Weight Height: 4 ft 10 in Weight: 126.9 kg Allergies Allergy/AdvReac Type Severity Reaction Status Date / Time demeclocycline Allergy Unknown ON CENTRE Verified 11/23/23 10:39 CARE MED LIST sulfamethoxazole Allergy Unknown ON CENTRE Verified 11/23/23 10:39 CARE MED LIST trimethoprim Allergy Unknown ON CENTRE Verified 11/23/23 10:39 CARE MED LIST ropinirole AdvReac Intermediate fluid Verified 11/23/23 10:39 retention pregabalin [From Lyrica] AdvReac Unknown Unknown Verified 11/23/23 10:39 Medications Home Medications Medication Instructions Recorded Confirmed Last Taken omega 4-psq-fbp-fish oil 1,000 mg 1 cap PO QAM 05/05/18 11/21/23 11/21/23 (120 mg-180 mg) capsule (Fish Oil) raloxifene 60 mg tablet 60 mg PO QAM osteoporosis 05/05/18 11/21/23 11/21/23 fenofibrate 160 mg tablet 160 mg PO DAILY 12/30/19 11/21/23 11/21/23 dextromethorphan-guaifenesin 10 10 ml PO Q4H PRN Cough 03/16/22 11/21/23 Unknown mg-100 mg/5 mL oral liquid (Tussin DM) lorazepam 0.5 mg tablet 0.5 mg PO HS 03/16/22 11/21/23 11/20/23 vit C 250 mg-vit E 90 mg-zinc 40 1 tab PO BIDM 03/16/22 11/21/23 11/21/23 08:30 mg-copper 1 yf-[id number]-fiklqm capsule (PreserVision AREDS-2) atropine 1 % eye drops 1 drp OPR Q8H PRN Dry Eye(S) 07/12/23 11/21/23 Unknown escitalopram oxalate 10 mg tablet 10 mg PO QAM 07/12/23 11/21/23 11/21/23 ferrous sulfate 142 mg (45 mg 142 mg PO QAM 07/12/23 11/21/23 11/21/23 iron) tablet,extended release gabapentin 100 mg capsule 100 mg PO BIDM 07/12/23 11/21/23 11/21/23 08:30 guaifenesin 600 mg tablet, 600 mg PO BID PRN Cough 07/12/23 11/21/23 Unknown extended release 12 hr (Mucus Relief ER) L.acidop,casei,lactis,rham-B.lact,karen 2 cap PO QAM 10/02/23 11/21/23 11/21/23 625 mg (10 billion cell) capsule (Advanced Probiotic) acetaminophen 325 mg tablet 650 mg PO Q6H PRN fever/pain 10/02/23 11/21/23 Unknown (Tylenol) loperamide 2 mg capsule 2 mg PO Q3H PRN Diarrhea 10/02/23 11/21/23 Unknown amoxicillin 500 mg capsule 500 mg PO TID #90 caps 10/15/23 11/21/23 11/21/23 06:30 ciprofloxacin HCl 500 mg tablet 500 mg PO BID #60 tabs 10/15/23 11/21/23 11/21/23 08:30 metoprolol succinate 25 mg 12.5 mg (1/2 x 25 mg) PO BID #30 10/15/23 11/21/23 11/21/23 08:30 tablet,extended release 24 hr tabs Protein Liquid 30 ml PO BID r/t wound support 11/02/23 11/21/23 11/21/23 08:30 pantoprazole 40 mg tablet,delayed 40 mg PO BIDM 11/02/23 11/21/23 11/21/23 08:30 release potassium chloride 20 mEq 20 meq PO QAM 11/02/23 11/21/23 11/21/23 tablet,extended release(part/cryst) spironolactone 25 mg tablet 12.5 mg PO QAM 11/02/23 11/21/23 11/21/23 torsemide 60 mg tablet 60 mg PO QAM 11/02/23 11/21/23 11/21/23 Saccharomyces boulardii 250 mg 250 mg PO BID 11/21/23 11/21/23 11/21/23 08:30 capsule (Florastor) ondansetron HCl 4 mg tablet 4 mg PO Q6H PRN NAUSEA/VOMITING 11/21/23 11/21/23 Unknown oxymetazoline 0.05 % nasal spray 3 spray intranasal DIRECTED PRN 11/21/23 11/21/23 Unknown EPISTAXIS Active Medications Generic Name Dose Route Start Last Admin Trade Name Freq PRN Reason Stop Dose Admin Amoxicillin 500 mg 11/21/23 21:00 11/23/23 21:37 Amoxicillin 500 Mg Cap PO 12/12/23 20:59 500 mg TID HAN Administration Protocol Ciprofloxacin 500 mg 11/21/23 21:00 11/23/23 21:37 Ciprofloxacin 500 Mg Tab PO 12/12/23 20:59 500 mg BID HAN Administration Protocol Escitalopram Oxalate 10 mg 11/22/23 09:00 11/23/23 08:04 Escitalopram Oxalate 10 Mg Tab PO 12/22/23 08:59 10 mg QAM HAN Administration Gabapentin 100 mg 11/22/23 08:00 11/23/23 16:44 Gabapentin 100 Mg Cap PO 12/22/23 07:59 100 mg BIDM HAN Administration Pantoprazole Sodium 40 mg/ 10 mls @ 5 mls/min 11/22/23 05:00 11/23/23 21:37 Syringe IV 12/22/23 04:59 5 mls/min Q12H HAN Administration Lorazepam 0.5 mg 11/21/23 21:00 11/23/23 21:36 Lorazepam 0.5 Mg Tab PO 12/21/23 20:59 0.5 mg HS HAN Administration Metoprolol Succinate 12.5 mg 11/21/23 21:00 11/23/23 21:38 Metoprolol Succ 25mg Ext Rel Tab PO 12/21/23 20:59 12.5 mg BID HAN Administration NPO Date Last Intake of Fluids: 11/22/23 Time Last Intake of Fluids: 23:00 Date Last Intake of Solids: 11/21/23 Time Last Intake of Solids: 12:00 Past Medical History Medical History Unspecified atrial fibrillation Metabolic encephalopathy History of pneumonia Difficulty in walking, not elsewhere classified Other fracture of right lower leg, subsequent encounter for closed fracture with routine healing Unspecified open wound, right ankle, subsequent encounter Proteus (mirabilis) (morganii) as the cause of diseases classified elsewhere Laceration without foreign body of left ear, subsequent encounter Cognitive communication deficit Dysphagia Wedge compression fracture of fourth lumbar vertebra with routine healing Stress fracture, pelvis, subsequent encounter for fracture with routine healing Weakness Pain in right leg Personal history of COVID-19 History of falling Other abnormalities of gait and mobility Pain in right hip Spinal stenosis, lumbosacral region Muscle weakness (generalized) Hyperlipidemia Hypoxemia Hypo-osmolality and hyponatremia Nocturnal hypoxia Right-sided congestive heart failure Sacral insufficiency fracture Cor pulmonale (chronic) Lumbar stenosis with neurogenic claudication Chronic GERD without esophagitis Right heart failure Dependence on nocturnal oxygen therapy RADHA (obstructive sleep apnea) Dyslipidemia Morbid obesity with BMI of 40.0-44.9, adult Mitral valve prolapse Osteoporosis Chronic acquired lymphedema HTN (hypertension) Chronic back pain Past Family History Family History Father Family history of colon cancer Brother Family history of prostate cancer Brother Family history of coronary artery disease Sister Family history of coronary artery disease Brother Family history of diabetes mellitus Past Surgical History Surgical History Hx of cholecystectomy Status post lumbar spine surgery for decompression of spinal cord 2018 Dr. Wan Status post kyphoplasty L3, L4, L5 2018 Dr. Wan Status post tonsillectomy Status post cataract surgery Status post appendectomy Social History Smoking Status: Never smoker Hx Alcohol Use: No Hx Substance Use: No substance use type: does not use Physical Exam Vital Signs Last Vital Signs Temp 36.8 C 11/24/23 07:45 Pulse 80 11/24/23 07:45 Resp 20 11/24/23 07:45 BP 132/72 11/24/23 07:45 Pulse Ox 99 11/24/23 07:45 O2 Del Method Nasal Cannula 11/24/23 07:45 O2 Flow Rate 2 11/24/23 07:45 Testing Laboratory Results 11/23/23 22:26 11/23/23 06:54 PT 12.4 Seconds (9.0-12.0) H 11/23/23 06:54 INR 1.1 (0.9-1.1) 11/23/23 06:54 APTT 25 Seconds (21-31) 11/21/23 17:48 Blood Type O Positive 11/21/23 16:15 Antibody Screen NEGATIVE 11/21/23 16:15 Electrocardiogram Date: 11/21/2321-Nov-2023 15:09:49 [facility]-EDSTAT ROUTINE RETRIEVAL Sinus rhythm with 1st degree A-V block Low voltage QRS Nonspecific ST abnormality Abnormal ECG When compared with ECG of 04-OCT-2023 09:05, Sinus rhythm has replaced Atrial fibrillation ST no longer depressed in Lateral leads T wave inversion no longer evident in Inferior leads T wave inversion no longer evident in Lateral leads 25mm/s10mm/[id number] 243CID: 19Unconfirmed Vent. rate 90 BPM ID interval 250 ms QRS duration 88 ms QT/QTc 348/425 ms P Chest X-Ray Date: 11/21/23 XR chest 1V portable CLINICAL HISTORY: fall TECHNIQUE: Single frontal radiograph of the chest was obtained. Comparison: Comparison is made to chest radiograph 10/11/2023 FINDINGS: No lines and tubes are seen. Cardiomegaly is noted. The aortic arch is calcified. Prominence and cephalization of the vasculature is seen. No evidence of pleural effusion or pneumothorax. IMPRESSION: Cardiomegaly and mild pulmonary edema. Echocardiogram Date: 10/04/23 EF: 55-60 LV Function: normal RWMA: + none Other Findings: + LVH (mild) and + diastolic dysfunction (grade1)
[2023-11-24 08:22] LABS: Hematocrit (blood only) 26.7 % (37.0-47.0); Hemoglobin 8.5 g/dl (12.0-16.0)
[2023-11-24 09:15] LABS: INR 1.1 (0.9-1.1); Prothrombin Time 12.3 Seconds (9.0-12.0)
--- NOTE | 2023-11-24 09:17 | History & Physical Bridge Note ---
Date of Service November 24, 2023 History & Physical Bridge Note I have examined the patient, reviewed the History & Physical and in the interval since the performance of the History & Physical I have noted the following changes of clinical significance: no changes noted. patient finished prep. still having some brown mucoid stools per nursing. no blood or melena seen per nursing. no GI complaints from patient today. no chest pain or sob. NPO. - will write for tap water enemas this morning. - will proceed with colonoscopy later today. Supervising Physician Co-Signing Physician Notes Agree with BRENTON Garner as above Abd: Soft, NT, ND, +BS Continue current therapy and supportive care Proceed with colonoscopy today.
[2023-11-24 09:25] LABS: Albumin Level 2.9 gm/dl (3.4-5.0); Bilirubin,Total 0.5 mg/dl (0.2-1.0); Calcium 9.2 mg/dl (8.6-10.3); Magnesium 1.7 mg/dl (1.7-2.4); Potassium 3.6 mmol/L (3.5-5.1)
[2023-11-24 09:31] LABS: Albumin Globulin Ratio 1.1 (0.9-2); BUN Creatinine Ratio 25.5 (10-20); Creatinine Clr Calc Pharmacy 45.3 ml/min; Est GFR (African American) 53.4 ml/min; Est GFR (Non-African American) 46.1 ml/min; Globulin 2.6 gm/dl (2.5-4.0); Total Protein 5.5 gm/dl (6.0-8.3)
[2023-11-24 11:09] LABS: Hematocrit (blood only) 26.5 % (37.0-47.0); Hemoglobin 8.4 g/dl (12.0-16.0)
--- NOTE | 2023-11-24 14:07 | GI REPORT ---
Patient Name: Meera Clement Procedure Date: 11/24/2023 1:27 PM Date of : 1940 Admit Type: Inpatient Age: 83 Gender: Female Attending MD: Peter Rico DO, Procedure: Colonoscopy Providers: Peter Rico DO Referring MD: Jennifer France Indications: Acute post hemorrhagic anemia Medicines: Monitored Anesthesia Care Complications: No immediate complications. Estimated Blood Loss: Estimated blood loss: none. Procedure: Pre-Anesthesia Assessment: - Prior to the procedure, a History and Physical was performed, and patient medications and allergies were reviewed. The patient's tolerance of previous anesthesia was also reviewed. The risks and benefits of the procedure and the sedation options and risks were discussed with the patient. All questions were answered, and informed consent was obtained. Prior Anticoagulants: The patient has taken no anticoagulant or antiplatelet agents. ASA Grade Assessment: IV - A patient with severe systemic disease that is a constant threat to life. After reviewing the risks and benefits, the patient was deemed in satisfactory condition to undergo the procedure. After I obtained informed consent, the scope was passed under direct vision. Throughout the procedure, the patient's blood pressure, pulse, and oxygen saturations were monitored continuously. The Colonoscope was introduced through the anus and advanced to the terminal ileum. The colonoscopy was performed without difficulty. The patient tolerated the procedure well. The quality of the bowel preparation was good. The terminal ileum, ileocecal valve, appendiceal orifice, and rectum were photographed. Findings: The perianal and digital rectal examinations were normal. A 28 mm polyp was found in the sigmoid colon. The polyp was sessile. The polyp was removed with a piecemeal technique using a hot snare. Resection and retrieval were complete. To prevent bleeding after the polypectomy, one hemostatic clip was successfully placed (MR conditional). 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 There was no bleeding at the end of the procedure. A 5 mm polyp was found in the sigmoid colon. The polyp was sessile. The polyp was removed with a hot snare. Resection and retrieval were complete. Non-bleeding internal hemorrhoids were found during retroflexion. The hemorrhoids were small. Impression: - One 28 mm polyp in the sigmoid colon, removed piecemeal using a hot snare. Resected and retrieved. Clip (MR conditional) was placed. 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 - One 5 mm polyp in the sigmoid colon, removed with a hot snare. Resected and retrieved. - Non-bleeding internal hemorrhoids. - No fresh or old blood in the colon. Recommendation: - Return patient to [facility] for ongoing care. - Resume previous diet. - Repeat colonoscopy for surveillance based on pathology results. Peter AlvinMckayla Rico, DO 11/24/2023 2:06:39 PM This report has been signed electronically. Note Initiated On: 11/24/2023 1:27 PM Number of Addenda: 0 I attest to the content of the Intraoperative Record and orders documented therein, exceptions below {[id number]}
--- NOTE | 2023-11-24 15:32 | Anesthesiology Progress Note ---
Date of Service November 24, 2023 Anesthesia Post Procedure Vital Signs Vital Signs: Temp Pulse Pulse Resp BP BP Pulse Ox 11/24/23 15:06 36.6 C 70 18 137/70 100 11/24/23 14:34 72 20 142/76 H 100 11/24/23 14:20 78 16 134/82 100 11/24/23 14:07 86 14 116/79 92 11/24/23 12:36 36.4 C L 84 16 121/80 93 11/24/23 10:37 36.8 C 78 20 137/74 99 11/24/23 08:00 72 11/24/23 08:00 11/24/23 07:45 36.8 C 80 20 132/72 99 11/24/23 04:13 36.3 C L 74 18 122/75 98 11/24/23 01:28 36.5 C 70 17 117/66 98 11/23/23 22:08 36.7 C 76 18 123/73 99 11/23/23 20:00 11/23/23 16:17 36.9 C 66 16 124/76 100 O2 Del Method O2 Flow Rate 11/24/23 15:06 Nasal Cannula 4 11/24/23 14:34 Nasal Cannula 4 11/24/23 14:20 Nasal Cannula 4 11/24/23 14:07 Nasal Cannula 4 11/24/23 12:36 Nasal Cannula 2 11/24/23 10:37 Nasal Cannula 2 11/24/23 08:00 11/24/23 08:00 Nasal Cannula 2 11/24/23 07:45 Nasal Cannula 2 11/24/23 04:13 Nasal Cannula 2.0 11/24/23 01:28 Nasal Cannula 2.0 11/23/23 22:08 Nasal Cannula 2.0 11/23/23 20:00 Nasal Cannula 2 11/23/23 16:17 Nasal Cannula 2.0 Transfer of Care Handoff Completed per policy Notes Mental Status: alert / awake / arousable and participated in evaluation Patient Amnestic to Procedure: Yes Nausea / Vomiting: adequately controlled Pain: adequately controlled Airway Patency, RR, SpO2: stable & adequate BP & HR: stable & adequate Hydration State: stable & adequate Anesthetic Complications: no major complications apparent
[2023-11-25 10:05] LABS: Basophils # (auto) 0.03 K/uL (0.00-0.20); Basophils % (auto) 0.7 %; Eosinophils # (auto) 0.31 K/uL (0.00-0.50); Eosinophils % (auto) 6.9 %; Hematocrit (blood only) 26.7 % (37.0-47.0); Immature Granulocytes # (auto) 0.06 K/uL (0.01-0.20); Immature Granulocytes % (auto) 1.3 %; Lymphocytes % (auto) 11.1 %; Mean Corpuscular Hemoglobin 27.2 pg (25.0-34.0); Mean Corpuscular Volume 90.8 fL (80.0-100.0); Mean Platelet Volume 10.2 fL (9.4-12.4); Monocytes # (auto) 0.59 K/uL (0.11-0.59); Monocytes % (auto) 13.1 %; Neutrophils % (auto) 66.9 %; Platelet Count 348 K/uL (130-400); RDW Standard Deviation 56.6 fL (36.4-46.3); Red Blood Count 2.94 M/uL (4.20-5.40); White Blood Count 4.49 K/ul (4.8-10.8)
--- NOTE | 2023-11-25 12:08 | Discharge Summary ---
Date of Service November 25, 2023 Admission HPI Per Admitting Provider Meera is a 83 yo F with PMHX of R tib/fib s/p ORIF with osteomyelitis (completed Cefepime and on chronic Ciprofloxacin and Amoxicillin per Orthopedics), Afib (On Eliquis), prediabetes, CKDIII, hypertension, chronic righ t CHF, mitral vlave prolapse, HLD, chronic lymphedema, RADHA, L4 compression fracture with severe spinal stenosis, and recent admission to [facility] for metabolic encephalopathy from RLL pneumonia who was sent to the [facility] ED from [facility] for a Hgb of 6.9 and ongoing left foot pain/swelling since a fall on 11/18/23. Of note, she was reported heme + at [facility]. Per discussions with the ED staff who were in contact with [facility], the patient has had a downtrending Hgb over the past month. She initially declined a colonoscopy but did undergo EGD on 11/07/23 which was unremarkable. The patient has subsequently agreed to a colonoscopy but this has yet to be obtained. She had a fall on 11/18/23 at [facility] and has had ongoing left foot swelling/pain. She was sent to the ED for all of these issues. She remained stable in the ED. Labs as of this am were significant for a hgb of 6.9 (down from 7.4 as of 11/14/23), Hct of 21, MCHC of 31, with CMP, in process. Chest xray was read as "Cardiomegaly and mild pulmonary edema.". Xray of the left foot was read as "Degenerative changes without evidence of acute fracture." Xray of the left tib/fib was also read as negative for acute findings. At the time of the exam the patient was resting in bed in no acute distress. She confirms the above history. States that she was walking to the bathroom on 11/17 when her legs gave out due to weakness. She is unsure how she landed on her LLE but has had pain and swelling since. Pain is about a 5/10 at this time. Is now ok with having a colonoscopy if needed. When asked, she c onfirms that her RUE is chronically swollen compared to left and has been evaluated in the past. Denies recent fever, chills, chest pain, cough, SOB, abd pain, nausea, vomiting, diarrhea, dysuria, hematuria and RLE pain. We discussed code eleazar, she confirms she is a DNR/DNI. When asked, she states that [facility] has been keeping her on 2L NC at all times over the past month. She denies ever wearing a CPAP mask in the past. I called and spoke to Chirag Pond, one of the staff at [facility]. He confirms the above history and confirms that the patient's Miri has been on h old since 10/31/23 due to her down trending Hgb. I was also able to call and speak with the patient's friend/POA (Preston Cuenca [phone]) after getting permission from Meera. He confirms that she is a DNR/DNI and also agrees with the patient receiving blood transfusions if needed. Please refer to Dr. Lopez's attestation for any changes to the treatment Admission Exam Per Admitting Provider Physical Exam: General: In no acute distress, stated age, chronically ill appearing but non- toxic HEENT: Normocephalic, atraumatic, no scleral icterus, pupils around round, symmetrical, and reactive to light, moist mucus membranes, trachea midline, no thyromegaly Chest/Pulm: No respiratory distress, symmetrical chest expansion, decreased breath sounds in the BL lower and mid lung sounds with mild expiratory wheezing in the BL upper lung almanza Cardiac: RRR, no murmurs noted Abdomen: Negative for ascites and bruising, normoactive bowel sounds, soft, non- tender to palpation throughout : Patient with tomlinson catheter placed by ED in place and draining clear, yellow urine Musculoskeletal: Patient with bruising noted over the dorsal aspect of the left foot and left lateral ankle, no other acute trauma noted on exam Extremities: Radial, dorsalis pedis, and posterior tibial pulses are intact and symmetrical, significant lymphedema noted in the BL LE's without signs of infection Skin: Warm, dry, no rashes , lesions, or scars noted >Site of previous right ankle infection appears well healed and without signs of infection Neuro: Alert and oriented to person, place, month, year, and president, no focal defects, no tremors noted Psych: No acute distress, calm and cooperative during the exam Principal Diagnosis Acute GI bleed with significant anemia Discharge Exam General:Alert, no acute distress, HEENT: Normocephalic, moist oral mucosa, Cardio: Regular rate and rhythm, no murmur, bilateral lower extremity edema persists Resp:Lungs clear to auscultation b/l, no wheezes or rhonchi, GI: Soft, nondistended, bowel sounds active, Skin: Warm, pink, dry, Psych: Mood-affect congruence. Discharge Data Allergies Allergy/AdvReac Type Severity Reaction Status Date / Time demeclocycline Allergy Unknown ON CENTRE Verified 11/23/23 10:39 CARE MED LIST sulfamethoxazole Allergy Unknown ON CENTRE Verified 11/23/23 10:39 CARE MED LIST trimethoprim Allergy Unknown ON CENTRE Verified 11/23/23 10:39 CARE MED LIST ropinirole AdvReac Intermediate fluid Verified 11/23/23 10:39 retention pregabalin [From Lyrica] AdvReac Unknown Unknown Verified 11/23/23 10:39 Consultations 11/21/23 16:49 ED Decision to Admit Stat 11/21/23 17:51 Consult Gastroenterology Routine Procedures Performed Operation Date: 11/24/23 16:55 Actual Procedures p Colonoscopy Polypectomy - Peter Hernandez Case, DO Ordered Studies 11/22/23 09:08 US venous duplex arm [US venous doppler UE RT] Urgent 11/22/23 14:39 CTA abd pelvis wo/w con [CT angio abd pelvis wo/w con] Routine Hospital Course (1) Blood loss anemia: (2) CKD (chronic kidney disease): (3) Paroxysmal A-fib: (4) Chronic GERD: (5) Acute pain of left lower extremity: (6) RADHA (obstructive sleep apnea): (7) HTN (hypertension): (8) Chronic osteomyelitis of right ankle: (9) Right-sided congestive heart failure: Plan Pt is a 83 yo female with a past medical history of R tib/fib s/p ORIF with osteomyelitis (completed Cefepime and on chronic Ciprofloxacin and Amoxicillin per Orthopedics), Afib (On Eliquis), prediabetes, CKDIII, hypertension, chronic right CHF, mitral valve prolapse, HLD, chronic lymphedema, RADHA, L4 compression fracture with severe spinal stenosis, and recent admission to [facility] for metabolic encephalopathy from RLL pneumonia who presents to the hospital on 11/20 from [facility] for acute anemia 6.9. Today, GI plan for colonoscopy. After, will discuss po trial of diet as tolerated. Tomlinson catheter kept in place on discharge per pt request. Should be removed for void trial. #Acute blood loss anemia, stable - most recent hosp in Sep 2023, hemoglobin was 9-10, on admission here was 6.9, stable today at 8.4 - heme + at [facility], - Patient's Eliquis has been on hold since 10/31/23 per [facility] Staff - Patient had an EGD on 11/07/23 which was unremarkable - type and crossed for 3 units and s/p 1 unit PRBCs (11/21) - GI consulted; CTA done 11/21 and unremark, EGD (11/22) wnl, colonoscopy (11/23) showed nonbleeding internal hemorrhoids and 2 sessile polyps - hemoglobins have been stable around 8.5 and pt tolerated reg diet today - restart home Eliquis on Sunday 11/26 per GI #R arm swelling - venous duplex US (11/21) wnl - recommend elevation of the arm to promote venous drainage #Acute pain of left lower extremity - Patient has been experiencing left foot and ankle pain since a fall while walking at [facility] on 11/17 - Does have bruising over the dorsal aspect of the left foot and left lateral ankle - Xray of the left foot and left tib/fib were negative for fracture, so likely a sprain - Continue with prn Tylenol and ice for now as pain is mild #Hx of Hypoxia -Patient was admitted to the [facility] service in September for acute hypoxic respiratory failure due to RLL pneumonia -Patient has been on 2L NC at all times since last admission and stable on this amount -CXR on admission shows mild pulmonary edema -Continue pulmonary Hygiene and PRN O2 to keep SpO2 at or above 92% #Paroxysmal A-fib - Currently in NSR - Continue metoprolol - Continue to hold Eliquis with acute GI bleed - GI recommends restarting Eliquis 11/26 Total Time Total Time Spent Total Time Spent (In Minutes): As per attending attestation. Discharge Plan Discharge Items Patient Disposition: Transfer [facility] Reason For Visit: ACUTE BLOOD LOSS ANEMIA, GI BLEED, LLE PAIN Discharge Diagnosis: Acute GI bleed with anemia Activity: As commented below Activity Comment: As tolerated. Non-emergency contact: Primary Care Provider Call non-emergency contact if: you have any medication questions and your symptoms worsen Follow-up/Referrals: [facility] [Primary Care Provider] - Diet: Regular Addtl Attending Provider Instructions: Pt is a 83 yo female with a past medical history of R tib/fib s/p ORIF with osteomyelitis (completed Cefepime and on chronic Ciprofloxacin and Amoxicillin per Orthopedics), Afib (On Eliquis), prediabetes, CKDIII, hypertension, chronic right CHF, mitral valve prolapse, HLD, chronic lymphedema, RADHA, L4 compression fracture with severe spinal stenosis, and recent admission to [facility] for metabolic encephalopathy from RLL pneumonia who presents to the hospital on 11/20 from [facility] for acute anemia 6.9. Today, GI plan for colonoscopy. After, will discuss po trial of diet as tolerated. Tomlinson catheter kept in place on discharge per pt request. Should be removed for void trial. #Acute blood loss anemia, stable - most recent hosp in Sep 2023, hemoglobin was 9-10, on admission here was 6.9, stable today at 8.4 - heme + at [facility], - Patient's Eliquis has been on hold since 10/31/23 per [facility] Staff - Patient had an EGD on 11/07/23 which was unremarkable - type and crossed for 3 units and s/p 1 unit PRBCs (11/21) - GI consulted; CTA done 11/21 and unremark, EGD (11/22) wnl, colonoscopy (11/23) showed nonbleeding internal hemorrhoids and 2 sessile polyps - hemoglobins have been stable around 8.5 and pt tolerated reg diet today - restart home Eliquis on Sunday 11/26 per GI #R arm swelling - venous duplex US (11/21) wnl - recommend elevation of the arm to promote venous drainage #Acute pain of left lower extremity - Patient has been experiencing left foot and ankle pain since a fall while walking at [facility] on 11/17 - Does have bruising over the dorsal aspect of the left foot and left lateral ankle - Xray of the left foot and left tib/fib were negative for fracture, so likely a sprain - Continue with prn Tylenol and ice for now as pain is mild #Hx of Hypoxia -Patient was admitted to the [facility] service in September for acute hypoxic respiratory failure due to RLL pneumonia -Patient has been on 2L NC at all times since last admission and stable on that amount -CXR on admission shows mild pulmonary edema -Continue pulmonary Hygiene and PRN O2 to keep SpO2 at or above 92% #Paroxysmal A-fib - Currently in NSR - Continue metoprolol - Continue to hold Eliquis with acute GI bleed - GI recommends restarting Eliquis 11/26 Pending Studies at Discharge: No Stand-Alone Forms: My [facility] Skilled Items Patient informed of condition?: Yes DNR: Yes Discharge Level of Care: Skilled Communicable Disease: No Discharge Prognosis: Stable Lines: None Urinary Catheter: Yes (Tomlinson catheter kept in place on discharge per pt request. Should be removed) Medications and DC Order Prescriptions: Continued raloxifene 60 mg tablet 60 mg PO QAM omega 1-ybk-bdk-fish oil [Fish Oil] 1,000 mg (120 mg-180 mg) Capsule 1 cap PO QAM fenofibrate 160 mg Tablet 160 mg PO DAILY dextromethorphan-guaifenesin [Tussin DM] 10-100 mg/5 mL Liquid 10 ml PO Q4H PRN (Reason: Cough) lorazepam 0.5 mg Tablet 0.5 mg PO HS Rx Instructions: PT MAY DECLINE THIS MED PreserVision AREDS-2 250-90-40-1 mg Capsule 1 tab PO BIDM gabapentin 100 mg capsule 100 mg PO BIDM atropine 1 % drops 1 drp OPR Q8H PRN (Reason: Dry Eye(S)) escitalopram oxalate 10 mg tablet 10 mg PO QAM ferrous sulfate 142 mg (45 mg iron) Tablet Extended Release 142 mg PO QAM guaifenesin [Mucus Relief ER] 600 mg Tablet Extended Release 12hr 600 mg PO BID PRN (Reason: Cough) acetaminophen [Tylenol] 325 mg Tablet 650 mg PO Q6H PRN (Reason: fever/pain) loperamide 2 mg capsule 2 mg PO Q3H PRN (Reason: Diarrhea) Advanced Probiotic 625 mg (10 billion cell) capsule 2 cap PO QAM amoxicillin 500 mg Capsule 500 mg PO TID Qty: 90 0RF Rx Instructions: STARTED 10/17/23, ENDS 12/12/23 ciprofloxacin HCl 500 mg Tablet 500 mg PO BID Qty: 60 0RF Rx Instructions: STARTED 10/17/23, ENDS 12/12/23. metoprolol succinate 25 mg Tablet Extended Release 24 Hr 12.5 mg PO BID Qty: 30 0RF spironolactone 25 mg Tablet 12.5 mg PO QAM pantoprazole 40 mg Tablet,Delayed Release (Dr/Ec) 40 mg PO BIDM torsemide 60 mg Tablet 60 mg PO QAM potassium chloride 20 mEq tablet,ER particles/crystals 20 meq PO QAM Protein Liquid 30 ml PO BID ondansetron HCl 4 mg Tablet 4 mg PO Q6H PRN (Reason: NAUSEA/VOMITING) oxymetazoline 0.05 % [place],Non-Aerosol 3 spray INTRANASAL DIRECTED PRN (Reason: EPISTAXIS) Saccharomyces boulardii [Florastor] 250 mg Capsule 250 mg PO BID Discharge Orders: Discharge Order (Routine); Ordered 11/25/23 Ordered By: Taylor Raymundo Admission Data Admit Date/Time: 11/21/23 17:56 Attending Provider: Yumiko Alvarez Admit Provider: Ron Lopez Primary Care Provider: [facility] Other Providers: Ron Lopez; Catarina Valenzuela Jr Other Interventions: Discharge Summary Assessment (RN) Last Done: 11/25/23 12:35 Supervising Physician Co-Signing Physician Notes Attending Physician Supervision Note: I independently interviewed and examined the patient and verified the dasilva history and physical, reviewed labs and image studies and agree with findings and care plan noted above. Acute blood loss anemia sec to GI bleed - -Eliquis had been held since 10/30 from center care due to recurrent bleed. -s/p 1 PRBC during hospital stay. h/h stable. -EGD 11/22 - Normal. Colonoscopy 11/23 - no source of active bleeding. Did have polyps removed. -Per GI - ok to resume eliquis on 11/26. Acute on chronic diastolic heart failure -s/p lasix dose in ED. stayed euvolemic since then Hypoproteinemia/Malnutrition - -monitor nutrition level at SNF. Resident Activity Tracking Resident Involvement: Resident Care Provided Care Provided: Adult Hospital Medicine
== END 2023-11-25 13:56 | DRG 377 ==
LOC: ED 15:03 → SUATTDRO 17:56 → EDINP 17:56 → 2E 19:48

== ENCOUNTER 2023-12-18 20:12 | Inpatient (IN) ==
[2023-12-18 21:06] LABS: Basophils # (auto) 0.02 K/uL (0.00-0.20); Basophils % (auto) 0.5 %; Eosinophils # (auto) 0.17 K/uL (0.00-0.50); Eosinophils % (auto) 4.6 %; Hematocrit (blood only) 26.8 % (37.0-47.0); Hemoglobin 8.1 g/dl (12.0-16.0); Immature Granulocytes # (auto) 0.03 K/uL (0.01-0.20); Immature Granulocytes % (auto) 0.8 %; Lymphocytes # (auto) 0.79 K/uL (1.20-3.40); Lymphocytes % (auto) 21.4 %; Mean Corpuscular Hemoglobin 26.1 pg (25.0-34.0); Mean Corpuscular Hgb Conc 30.2 g/dL (32.0-36.0); Mean Corpuscular Volume 86.5 fL (80.0-100.0); Mean Platelet Volume 11.1 fL (9.4-12.4); Monocytes # (auto) 0.45 K/uL (0.11-0.59); Monocytes % (auto) 12.2 %; Neutrophils # (auto) 2.23 K/uL (1.40-6.50); Neutrophils % (auto) 60.5 %; Platelet Count 285 K/uL (130-400); RDW Coefficient of Variation 18.3 % (11.5-14.5); RDW Standard Deviation 57.9 fL (36.4-46.3); White Blood Count 3.69 K/ul (4.8-10.8)
[2023-12-18 21:29] LABS: Troponin I High Sensitivity 13.9 pg/ml (0-14)
[2023-12-18 21:40] LABS: Albumin Level 3.1 gm/dl (3.4-5.0); Bilirubin,Total 0.3 mg/dl (0.2-1.0); Calcium 9.6 mg/dl (8.6-10.3); INR 1.1 (0.9-1.1); Partial Thromboplastin Ratio 0.9; Partial Thromboplastin Time 24 Seconds (21-31); Potassium 3.8 mmol/L (3.5-5.1); Prothrombin Time 12.2 Seconds (9.0-12.0)
[2023-12-18 21:45] LABS: Appearance Urine Clear (Clear); Bacteria Urine Automated None Seen (None Seen); Bilirubin Urine Negative (Negative); Blood Urine Negative (Negative); Cast Urine Automated >20 /lpf (0-2); Color Urine Yellow; Epithelial Cell Urine Auto 0-2 /hpf (0-2); Glucose Urine UA Negative (Negative); Ketones Urine Negative (Negative); Leukocyte Esterase Urine Negative (Negative); Nitrite Urine Negative (Negative); Protein Urine 2+ (Negative); RBC Urine Automated 0-2 /hpf (0-2); Specific Gravity Urine 1.011 (1.000-1.030); Urobilinogen Urine Negative (Negative); WBC Urine Automated 0-5 /hpf (0-5)
[2023-12-18 21:46] LABS: Albumin Globulin Ratio 1.2 (0.9-2); BUN Creatinine Ratio 27.7 (10-20); Creatinine Clr Calc Pharmacy 58.1 ml/min; Est GFR (African American) 64.6 ml/min; Est GFR (Non-African American) 55.7 ml/min; Globulin 2.6 gm/dl (2.5-4.0); Total Protein 5.7 gm/dl (6.0-8.3)
--- NOTE | 2023-12-18 22:04 | Emergency Department Note ---
ED Visit Note I was consulted by the Advanced Practice Provider. I personally made/approved the management plan and take responsibility for the patient management. I performed a substantive portion of the visit. This includes the aspects of: -History/Physical -MDM .
--- NOTE | 2023-12-18 22:09 | Emergency Department Note ---
History of Present Illness General Chief complaint: Shortness of Breath/Dyspnea Stated complaint: INCREASED SHORTNESS OF BREATH Time Seen by Provider: 12/18/23 21:29 History of Present Illness This 83-year-old female with a history of heart failure presents ER for increasing shortness of breath and fluid retention for the past few days. Patient denies chest pain, cough, congestion, flulike illness. Patient was more short of breath and was concerned and came in. She has chronic swelling to her extremities. Home Medications Medication Instructions Recorded Confirmed Type omega 6-vaj-qdq-fish oil 1,000 mg 1 cap PO QAM 05/05/18 12/18/23 History (120 mg-180 mg) capsule (Fish Oil) raloxifene 60 mg tablet 60 mg PO QAM osteoporosis 05/05/18 12/18/23 History fenofibrate 160 mg tablet 160 mg PO DAILY 12/30/19 12/18/23 History dextromethorphan-guaifenesin 10 10 ml PO Q4H PRN Cough 03/16/22 12/18/23 History mg-100 mg/5 mL oral liquid (Tussin DM) lorazepam 0.5 mg tablet 0.5 mg PO HS 03/16/22 12/18/23 History vit C 250 mg-vit E 90 mg-zinc 40 1 tab PO BIDM 03/16/22 12/18/23 History mg-copper 1 my-vpifrn-dvjhik capsule (PreserVision AREDS-2) atropine 1 % eye drops 1 drp OPR Q8H PRN Dry Eye(S) 07/12/23 12/18/23 History escitalopram oxalate 10 mg tablet 10 mg PO QAM 07/12/23 12/18/23 History ferrous sulfate 142 mg (45 mg 142 mg PO QAM 07/12/23 12/18/23 History iron) tablet,extended release gabapentin 100 mg capsule 100 mg PO BIDM 07/12/23 12/18/23 History guaifenesin 600 mg tablet, 600 mg PO Q12H PRN Cough 07/12/23 12/18/23 History extended release 12 hr (Mucus Relief ER) L.acidop,casei,lactis,rham-B.lact,karen 2 cap PO QAM 10/02/23 12/18/23 History 625 mg (10 billion cell) capsule (Advanced Probiotic) acetaminophen 325 mg tablet 650 mg PO Q6H PRN fever/pain 10/02/23 12/18/23 History (Tylenol) loperamide 2 mg capsule 2 mg PO Q3H PRN Diarrhea 10/02/23 12/18/23 History pantoprazole 40 mg tablet,delayed 40 mg PO BIDM 11/02/23 12/18/23 History release potassium chloride 20 mEq 20 meq PO QAM 11/02/23 12/18/23 History tablet,extended release(part/cryst) spironolactone 25 mg tablet 12.5 mg PO QAM 11/02/23 12/18/23 History torsemide 60 mg tablet 60 mg PO QAM 11/02/23 12/18/23 History Saccharomyces boulardii 250 mg 250 mg PO BID 11/21/23 12/18/23 History capsule (Florastor) ondansetron HCl 4 mg tablet 4 mg PO Q6H PRN NAUSEA/VOMITING 11/21/23 12/18/23 History oxymetazoline 0.05 % nasal spray 3 spray intranasal DIRECTED PRN 11/21/23 12/18/23 History EPISTAXIS metoprolol succinate 25 mg 12.5 mg PO BIDM 12/18/23 12/18/23 History tablet,extended release 24 hr Allergies Allergy/AdvReac Type Severity Reaction Status Date / Time demeclocycline Allergy Unknown ON CENTRE Verified 12/18/23 22:52 CARE MED LIST sulfamethoxazole Allergy Unknown ON CENTRE Verified 12/18/23 22:52 CARE MED LIST trimethoprim Allergy Unknown ON CENTRE Verified 12/18/23 22:52 CARE MED LIST ropinirole AdvReac Intermediate fluid Verified 12/18/23 22:52 retention pregabalin [From Lyrica] AdvReac Unknown ON CENTRE Verified 12/18/23 22:52 CARE MED LIST Past Med/Surg History Medical History Fall Contusion of foot, left Anemia Acute lower GI bleeding Acute pain of left lower extremity Unspecified atrial fibrillation Metabolic encephalopathy History of pneumonia Difficulty in walking, not elsewhere classified Other fracture of right lower leg, subsequent encounter for closed fracture with routine healing Unspecified open wound, right ankle, subsequent encounter Proteus (mirabilis) (morganii) as the cause of diseases classified elsewhere Laceration without foreign body of left ear, subsequent encounter Cognitive communication deficit Dysphagia Wedge compression fracture of fourth lumbar vertebra with routine healing Stress fracture, pelvis, subsequent encounter for fracture with routine healing Weakness Pain in right leg Personal history of COVID-19 History of falling Other abnormalities of gait and mobility Pain in right hip Spinal stenosis, lumbosacral region Muscle weakness (generalized) Hyperlipidemia Hypoxemia Hypo-osmolality and hyponatremia Nocturnal hypoxia Right-sided congestive heart failure Sacral insufficiency fracture Cor pulmonale (chronic) Lumbar stenosis with neurogenic claudication Chronic GERD without esophagitis Right heart failure Dependence on nocturnal oxygen therapy RADHA (obstructive sleep apnea) Dyslipidemia Morbid obesity with BMI of 40.0-44.9, adult Mitral valve prolapse Osteoporosis Chronic acquired lymphedema HTN (hypertension) Chronic back pain Surgical History Hx of cholecystectomy Status post lumbar spine surgery for decompression of spinal cord 2017 Dr. Wan Status post kyphoplasty L3, L4, L5 2018 Dr. 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 Beliefs That Will Affect Care: None marital status: Single Current Living Situation: Personal Care Facility Current Living Situation Comment: skilled care facility Other Information That Helps Us Care for You: No Feels Safe at Home: Yes Safety Concerns: Feels Safe At This Time Assistive Devices: Denture - Upper, Denture - Lower and Oxygen - Continuous Review of Systems A total of 10 systems reviewed and were otherwise negative Physical Exam Vital Signs Vital Signs - 24 hr 12/18/23 20:33 12/18/23 20:33 12/18/23 20:33 Temperature 36.8 C Temperature Source Oral Pulse Rate 80 Pulse Rate [Apical] Pulse Rhythm Respiratory Rate 24 Respiratory Depth Blood Pressure 145/69 H Blood Pressure [Right Arm] Blood Pressure Mean 94 Blood Pressure Mean [Right Arm] Pulse Oximetry 98 97 Oxygen Delivery Method Nasal Cannula Nasal Cannula Nasal Cannula Oxygen Flow Rate 2 2 2 Sepsis Recent Fever Within 48 Hours No Sepsis New/Unexplained Change in Mental Status N/A Sepsis Action Taken by Nursing No Action Required 12/18/23 20:33 12/18/23 20:44 12/18/23 20:55 Temperature Temperature Source Pulse Rate 78 Pulse Rate [Apical] Pulse Rhythm Respiratory Rate 26 H Respiratory Depth Blood Pressure Blood Pressure [Right Arm] Blood Pressure Mean Blood Pressure Mean [Right Arm] Pulse Oximetry 99 Oxygen Delivery Method Nasal Cannula Oxygen Flow Rate 2 Sepsis Recent Fever Within 48 Hours Sepsis New/Unexplained Change in Mental Status Sepsis Action Taken by Nursing 12/18/23 20:55 12/18/23 21:57 12/18/23 22:13 Temperature Temperature Source Pulse Rate 76 Pulse Rate [Apical] 80 Pulse Rhythm Regular Respiratory Rate 24 24 Respiratory Depth Normal Blood Pressure Blood Pressure [Right Arm] 128/63 127/73 Blood Pressure Mean Blood Pressure Mean [Right Arm] 84 91 Pulse Oximetry 99 98 97 Oxygen Delivery Method Nasal Cannula Nasal Cannula Nasal Cannula Oxygen Flow Rate 2 2 2 Sepsis Recent Fever Within 48 Hours Sepsis New/Unexplained Change in Mental Status Sepsis Action Taken by Nursing VITALS: Vitals are noted on the nurse's note and reviewed by myself. Vital signs stable. GENERAL: Pleasant elderly female on 2 L of nasal cannula chronically, in no acute distress, nondiaphoretic, well-developed well-nourished. SKIN: Capillary reflex less than 2 seconds. HEENT: Normocephalic. PERRLA. EOMI. Nares patent. Mucous membranes moist. Neck is supple without nuchal rigidity. HEART: Regular rate and rhythm LUNGS: Bibasilar rales. no retractions or accessory muscle use. ABDOMEN: Positive bowel sounds x 4. Normal tympanic percussion. Soft, nontender, without masses or organomegaly. Chavarria sign negative. No guarding or rebound tenderness. no CVA tenderness MUSCULOSKELETAL: No gross musculoskeletal defects. Chronic lower leg edema. NEURO: Patient was alert and oriented to person place and time. No focal neurological deficits. Course Administered Medications Discontinued Medications Furosemide (Furosemide 40 Mg/4 Ml Vial) 40 mg IV ONE ONE Stop: 12/18/23 22:02 Last Admin: 12/18/23 22:12 Dose: 40 mg Documented By: MMG Furosemide (Furosemide Inj 20 Mg/2 Ml Vial) 20 mg IV ONE ONE Stop: 12/19/23 00:32 Last Admin: 12/19/23 01:12 Dose: 20 mg Documented By: KANNAN Ioversol (Optiray 320 125ml) 119 ml IV ONCE ONE Stop: 12/18/23 22:48 Last Admin: 12/18/23 22:47 Dose: 119 ml Documented By: DARIUS Medical Decision Making Medical Records Attestation: I reviewed the patient's medical records. Home Medications Current Medication List: was personally reviewed by oh Laboratory Data Attestation: I reviewed the patient's lab results. 12/18/23 20:25 12/18/23 20:25 Lab Results 12/18/23 12/18/23 12/18/23 Range/Units 20:25 20:30 22:22 WBC 3.69 L (4.8-10.8) K/ul RBC 3.10 L (4.20-5.40) M/uL Hgb 8.1 L (12.0-16.0) g/dl Hct 26.8 L (37.0-47.0) % MCV 86.5 (80.0-100.0) fL MCH 26.1 (25.0-34.0) pg MCHC 30.2 L (32.0-36.0) g/dL RDW Std Deviation 57.9 H (36.4-46.3) fL RDW Coeff of Vicki 18.3 H (11.5-14.5) % Plt Count 285 (130-400) K/uL MPV 11.1 (9.4-12.4) fL Immature Gran % (Auto) 0.8 % Neut % (Auto) 60.5 % Lymph % (Auto) 21.4 % [place] % (Auto) 12.2 % Eos % (Auto) 4.6 % Baso % (Auto) 0.5 % Neut # (Auto) 2.23 (1.40-6.50) K/uL Lymph # (Auto) 0.79 L (1.20-3.40) K/uL [place] # (Auto) 0.45 (0.11-0.59) K/uL Eos # (Auto) 0.17 (0.00-0.50) K/uL Baso # (Auto) 0.02 (0.00-0.20) K/uL Immature Gran # (Auto) 0.03 (0.01-0.20) K/uL PT 12.2 H (9.0-12.0) Seconds INR 1.1 (0.9-1.1) APTT 24 (21-31) Seconds PTT Ratio 0.9 Sodium 138 (136-145) mmol/L Potassium 3.8 (3.5-5.1) mmol/L Chloride 104 (98-107) mmol/L Carbon Dioxide 33 H (21-32) mmol/L Anion Gap 1 L (3-11) BUN 26 H (6-23) mg/dl Creatinine 0.94 (0.6-1.2) mg/dl Est Cr Clr Drug Dosing 58.1 ml/min Est GFR ( Amer) 64.6 ml/min Est GFR (Non-Af Amer) 55.7 ml/min BUN/Creatinine Ratio 27.7 H (10-20) Glucose 150 H (70-99(Fasting)) mg/dl Lactate 0.9 (0.4-2.0) mmol/L Calcium 9.6 (8.6-10.3) mg/dl Total Bilirubin 0.3 (0.2-1.0) mg/dl AST 20 (13-39) U/L ALT 7 (7-52) U/L Alkaline Phosphatase 106 H (34-104) U/L Troponin I High Sens 13.9 (0-14) pg/ml B-Natriuretic Peptide 228 H (0-100) pg/ml Total Protein 5.7 L (6.0-8.3) gm/dl Albumin 3.1 L (3.4-5.0) gm/dl Globulin 2.6 (2.5-4.0) gm/dl Albumin/Globulin Ratio 1.2 (0.9-2) Procalcitonin 0.03 (0-0.5) ng/ml Urine Color Yellow Urine Appearance Clear (Clear) Urine pH 5.0 (4.5-7.5) Ur Specific [place] 1.011 (1.000-1.030) Urine Protein 2+ H (Negative) Urine Glucose (UA) Negative (Negative) Urine Ketones Negative (Negative) Urine Blood Negative (Negative) Urine Nitrite Negative (Negative) Urine Bilirubin Negative (Negative) Urine Urobilinogen Negative (Negative) Ur Leukocyte Esterase Negative (Negative) Urine WBC (Auto) 0-5 (0-5) /hpf Urine RBC (Auto) 0-2 (0-2) /hpf U Hyaline Cast (Auto) >20 H (0-2) /lpf U Epithel Cells (Auto) 0-2 (0-2) /hpf Urine Bacteria (Auto) None Seen (None Seen) Imaging Data Attestation: I personally reviewed and interpreted this imaging study as follows: Radiologist's Impression: Chest CTA 12/18/23 21:31 Exam(s): CTA CHEST IV Amt: OPTIRAY [id number] EXAM: CT Angiography Chest With Intravenous Contrast CLINICAL HISTORY: Reason for exam: PE. TECHNIQUE: Axial computed tomographic angiography images of the chest with intravenous contrast. CTDI is 24 mGy and DLP is 652 mGy-cm. Automated exposure control was utilized for the study. A dose lowering technique was utilized adhering to the principles of ALARA. MIP reconstructed images were created and reviewed. COMPARISON: Noncontrast CT chest 10/03/23. FINDINGS: Pulmonary arteries: No pulmonary embolus is identified. There is marked pulmonary hypertension, unchanged. Aorta: No acute findings. No aortic aneurysm or dissection. Lungs: Moderate to large compressive atelectasis bilateral lower lobes. Moderate severity dependent atelectasis bilateral upper lobes. Pneumonia in the lower lungs less likely. Mild interstitial pulmonary edema demonstrated. No tracheal or endobronchial lesion is visualized. No mass. Pleural space: Moderate, dependently layering bilateral pleural effusions. No pneumothorax. Heart: Enlarged heart with symmetric left and right ventricular dilatation, stable from prior examination. Minimal coronary artery calcification visualized. No pericardial effusion. Bones/joints: No acute fracture. No dislocation. Old lower left rib fractures noted. Soft tissues: Unremarkable. Lymph nodes: Unremarkable. No enlarged lymph nodes. IMPRESSION: 1. 1. No evidence of pulmonary embolus. Pulmonary hypertension and enlarged heart, unchanged from prior examination. 2. 2. Moderate layering bilateral pleural effusions with moderate to large compressive atelectasis bilateral lower lobes, right worse than left. Underlying pneumonia less likely. 3. 3. Mild interstitial pulmonary edema. Electronically signed by: Shabbir Barreto MD 12/19/23 00:29 AM [facility] Narrative Prior records/ancillary studies reviewed. Triage Nursing notes reviewed. Additional history obtained from the nursing. The patient's history was concerning for respiratory difficulties. Differential diagnosis: Etiologies such as infections, reactive airway disease, pneumonia, pneumothorax, COPD, CHF, cardiac ischemia, pulmonary embolism, musculoskeletal, gastrointestinal, as well as others were entertained. Physical examination: As above. ER treatment provided: An order was placed for continuous cardiac monitoring. The monitor shows a rate of 60-100 with a sinus rhythm per my interpretation. Lasix IV On reassessment the patient felt better. Diagnostic interpretation by me: The electrocardiogram was ordered for SOB. ECG: Normal sinus, first-degree AV block, no acute ST-T wave changes, rate of 78. Impression normal sinus rhythm with a first-degree AV block independently interpreted by myself The labs Independently Interpreted by myself revealed elevated BNP. Negative troponin Imaging studies: Chest x-ray with pulmonary congestion and pleural effusions concerning for heart failure per my independent interpretation. CTA as above Consultation: A consultation was placed with the hospitalist. The case was discussed and diagnostics were reviewed. The patient was evaluated in the ER for further treatment. This appears to be consistent with heart failure. Patient was more short of breath. I did give her Lasix. Medicine was consulted and case discussed. She will be admitted to the medical service. Patient is agreeable.. By the evaluation outlined above emergent etiologies such as cardiac ischemia, pulmonary embolism, reactive airway disease, pneumonia, pneumothorax, musculoskeletal, serious bacterial infections, as well as others were deemed relatively unlikely. The pt informed about the findings as listed above. All questions were answered and pleased with the treatment. The chart was completed utilizing [employer] Speech voice recognition software. Grammatical errors, random word insertions, pronoun errors, and incomplete sentences are an occassional consequence of this system due to software limitations, ambient noise, and hardware issues. Any formal questions or concerns about the content, text, or information contained within the body of this dictation should be directly addressed to the physician administrative assistant data entry for clarification. Impression & Plan Acute congestive heart failure Discharge Plan Visit Data Chief Complaint: Shortness of Breath/Dyspnea Stated Complaint: INCREASED SHORTNESS OF BREATH ED Provider: Jose Lam ED Midlevel Provider: Elvira Hill Discharge Problem: Acute congestive heart failure Patient Disposition: Admitted As Inpatient Condition: Fair Discharge Instructions Interventions: ED Discharge Assessment Last Done: 12/18/23 23:38 Discharge Problem: Acute congestive heart failure Qualifiers: Heart failure type: unspecified Qualified Code(s): I50.9 - Heart failure, unspecified
[2023-12-18] MEDS: FUROSEMIDE 40 MG/4 ML VIAL IV ONE (22:12)
--- NOTE | 2023-12-18 22:35 | History & Physical Report ---
Date of Service December 18, 2023 Assessment & Plan (1) Acute congestive heart failure: Plan: - CXR with pulm vascular congestion, elevated BNP- consistent with acute on chronic HFpEF - CTA pending - last TTE 10/04/2023 with EF= 55-60%, grade 1 diastolic dysfunction - home diuretic regimen- 12.5 spironolactone, 60mg torsemide; hold for now with plan for IV diuretics while admitted - monitor I&Os, daily weights - continue to diurese as kidney function allows - S/p 40mg Iv Lasix in ED, will give an additional 20mg IV tonight - Plan for 20mg IV Lasix BID- as blood pressure and kidney function allows - fluid restriction 1800ml/day (2) Chronic osteomyelitis of right ankle: Plan: - completed course of amoxicillin/ ciprofloxacin on 12/11 (3) Paroxysmal A-fib: Plan: - had been on Eliquis up until 10/31/23 when [facility] due to concern for downtrending hemoglobin - currently in NSR - upon last d/c GI had recommend resuming Eliquis 11/26; but looking at documentation from [facility] does not look like it has been resumed- hemoglobin has been slowly downtrending again with most recent 7.3 on 12/12 - 8.1 on admission- plan to trend - given downtrending hemoglobin over the past month off Eliquis, will not resume on admission. Will need weigh risk vs benefit on chronic anticontagion pending stability of hemoglobin (4) Anemia: Plan: - hemoglobin has been slowly downtrending since d/c with most recent 7.3 on 12/12 - 8.1 on admission - At this point has had both Endoscopy and Colonoscopy without definitive cause for anemia; could consider capsule endoscopy as an outpatient - Continue to trend CBC, repeat FE panel qAM - continue oral iron supplementation (5) Depression: Plan: - continue lexapro, ativan prn (6) HTN (hypertension): Plan: - continue metoprolol (7) Chronic GERD: Plan: - continue pantoprazole Plan Diet: heart healthy, fluid restriction 1800ml Code: DNR/DNI VTE Prophylaxis: SCD, defer chemical at admission due to acute anemia History of Present Illness Primary Care Provider: [facility] 83 year old female with a past medical history of HFpEF, paroxysmal afib, anemia, HTN, HLD, RADHA GERD presenting with increased dyspnea. Notes increased shortness of breath and LE edema over the past couple of days. Currently at [facility]. Baseline oxygen requirement of 2L. Denies recent dietary changes. States that [facility] manages her medications, so she does not know what she takes daily. Denies chest pain, cough, congestion, nausea/vomiting. Recently admitted with concern for acute GI bleed and was d/c on 11/24. Colonoscopy that admission with non-bleeding internal hemorrhoids and 2 sessile polyps. ED course significant for: CXR with pulmonary vascularly congestion and pleural effusion per my read. EKG with NSR, first degree AV block. Elevated BNP= 228. Trop= 13.9. S/p 40 IV Lasix Allergies Allergy/AdvReac Type Severity Reaction Status Date / Time demeclocycline Allergy Unknown ON [facility] Verified 12/18/23 22:52 CARE MED LIST sulfamethoxazole Allergy Unknown ON [facility] Verified 12/18/23 22:52 CARE MED LIST trimethoprim Allergy Unknown ON [facility] Verified 12/18/23 22:52 CARE MED LIST ropinirole AdvReac Intermediate fluid Verified 12/18/23 22:52 retention pregabalin [From Lyrica] AdvReac Unknown ON [facility]RE Verified 12/18/23 22:52 CARE MED LIST Home Medications Medication Instructions Recorded Confirmed Type omega 7-swd-rtp-fish oil 1,000 mg 1 cap PO QAM 05/05/18 12/18/23 History (120 mg-180 mg) capsule (Fish Oil) raloxifene 60 mg tablet 60 mg PO QAM osteoporosis 05/05/18 12/18/23 History fenofibrate 160 mg tablet 160 mg PO DAILY 12/30/19 12/18/23 History dextromethorphan-guaifenesin 10 10 ml PO Q4H PRN Cough 03/16/22 12/18/23 History mg-100 mg/5 mL oral liquid (Tussin DM) lorazepam 0.5 mg tablet 0.5 mg PO HS 03/16/22 12/18/23 History vit C 250 mg-vit E 90 mg-zinc 40 1 tab PO BIDM 03/16/22 12/18/23 History mg-copper 1 up-avqtcv-aojwtr capsule (PreserVision AREDS-2) atropine 1 % eye drops 1 drp OPR Q8H PRN Dry Eye(S) 11/21/23 04/28/24 History escitalopram oxalate 10 mg tablet 10 mg PO QAM 07/12/23 12/18/23 History ferrous sulfate 142 mg (45 mg 142 mg PO QAM 07/12/23 12/18/23 History iron) tablet,extended release gabapentin 100 mg capsule 100 mg PO BIDM 07/12/23 12/18/23 History guaifenesin 600 mg tablet, 600 mg PO Q12H PRN Cough 07/12/23 12/18/23 History extended release 12 hr (Mucus Relief ER) L.acidop,casei,lactis,rham-B.lact,karen 2 cap PO QAM 10/02/23 12/18/23 History 625 mg (10 billion cell) capsule (Advanced Probiotic) acetaminophen 325 mg tablet 650 mg PO Q6H PRN fever/pain 10/02/23 12/18/23 History (Tylenol) loperamide 2 mg capsule 2 mg PO Q3H PRN Diarrhea 10/02/23 12/18/23 History pantoprazole 40 mg tablet,delayed 40 mg PO BIDM 11/02/23 12/18/23 History release potassium chloride 20 mEq 20 meq PO QAM 11/02/23 12/18/23 History tablet,extended release(part/cryst) spironolactone 25 mg tablet 12.5 mg PO QAM 11/02/23 12/18/23 History torsemide 60 mg tablet 60 mg PO QAM 11/02/23 12/18/23 History Saccharomyces boulardii 250 mg 250 mg PO BID 11/21/23 12/18/23 History capsule (Florastor) ondansetron HCl 4 mg tablet 4 mg PO Q6H PRN NAUSEA/VOMITING 11/21/23 12/18/23 History oxymetazoline 0.05 % nasal spray 3 spray intranasal DIRECTED PRN 11/21/23 12/18/23 History EPISTAXIS metoprolol succinate 25 mg 12.5 mg PO BIDM 12/18/23 12/18/23 History tablet,extended release 24 hr Past Med/Surg History Medical History Fall Contusion of foot, left Anemia Acute lower GI bleeding Acute pain of left lower extremity Unspecified atrial fibrillation Metabolic encephalopathy History of pneumonia Difficulty in walking, not elsewhere classified Other fracture of right lower leg, subsequent encounter for closed fracture with routine healing Unspecified open wound, right ankle, subsequent encounter Proteus (mirabilis) (morganii) as the cause of diseases classified elsewhere Laceration without foreign body of left ear, subsequent encounter Cognitive communication deficit Dysphagia Wedge compression fracture of fourth lumbar vertebra with routine healing Stress fracture, pelvis, subsequent encounter for fracture with routine healing Weakness Pain in right leg Personal history of COVID-19 History of falling Other abnormalities of gait and mobility Pain in right hip Spinal stenosis, lumbosacral region Muscle weakness (generalized) Hyperlipidemia Hypoxemia Hypo-osmolality and hyponatremia Nocturnal hypoxia Right-sided congestive heart failure Sacral insufficiency fracture Cor pulmonale (chronic) Lumbar stenosis with neurogenic claudication Chronic GERD without esophagitis Right heart failure Dependence on nocturnal oxygen therapy RADHA (obstructive sleep apnea) Dyslipidemia Morbid obesity with BMI of 40.0-44.9, adult Mitral valve prolapse Osteoporosis Chronic acquired lymphedema HTN (hypertension) Chronic back pain Surgical History Hx of cholecystectomy Status post lumbar spine surgery for decompression of spinal cord 2018 Dr. Wan Status post kyphoplasty L3, L4, L5 2018 Dr. Wan Status post tonsillectomy Status post cataract surgery Status post appendectomy Family History Father Family history of colon cancer Brother Family history of prostate cancer Brother Family history of coronary artery disease Sister Family history of coronary artery disease Brother Family history of diabetes mellitus Social History Smoking Status: Never smoker Second Hand Exposure: No; Do You Dip or Chew Tobacco: No; Hx Alcohol Use: No Hx Substance Use: No Preferred Language: Slovak Communication Ability: Effective Communication Ability Comment: confused Field Operations Coordinator Required: No Beliefs That Will Affect Care: None marital status: Single Current Living Situation: Personal Care Facility Current Living Situation Comment: skilled care facility Other Information That Helps Us Care for You: No Feels Safe at Home: Yes Safety Concerns: Feels Safe At This Time Assistive Devices: Walker and Wheelchair Review of Systems Review of Systems: As per above Physical Exam Physical Exam: Constitutional: well-appearing, no acute distress HEENT: NCAT, no conjunctival injection CV: regular rhythm, no murmur appreciated, extremities well-perfused, +LE edema/lymphadenoma to thighs Resp:+ rhonchi bases B/L, no increased work of breathing GI: soft, nondistended, nontender MSK: no gross deformities appreciated Skin: warm, dry, no rash appreciated Neuro: alert, oriented, no focal neurologic deficit appreciated Results & Data Results & Data Vital Signs (Past 12 Hours) Vital Signs Temp Pulse Pulse Resp BP BP Pulse Ox 12/18/23 22:13 127/73 97 12/18/23 21:57 80 24 128/63 98 12/18/23 20:55 76 24 99 12/18/23 20:55 99 12/18/23 20:44 78 12/18/23 20:33 26 H 12/18/23 20:33 97 12/18/23 20:33 12/18/23 20:33 36.8 C 80 24 145/69 H 98 O2 Del Method O2 Flow Rate 12/18/23 22:13 Nasal Cannula 2 12/18/23 21:57 Nasal Cannula 2 12/18/23 20:55 Nasal Cannula 2 12/18/23 20:55 Nasal Cannula 2 12/18/23 20:44 12/18/23 20:33 12/18/23 20:33 Nasal Cannula 2 12/18/23 20:33 Nasal Cannula 2 12/18/23 20:33 Nasal Cannula 2 Supervising Physician Co-Signing Physician Notes Attending addendum: I have physically seen this patient, have supervised the medical residents activities, and agree with the H&P unless as otherwise noted. Assessment and Plan: CHF exacerbation/bilateral pleural effusions, right greater than left- Echo on 10/04/2023 with ejection fraction 55-60% Received furosemide 40 mg IV in ED, with urine output already 1 L after the first hour Continue furosemide 20 mg IV twice daily Holding home torsemide and spironolactone as noted Albumin 3.1, may benefit from IV albumin if pressure becomes borderline Paroxysmal atrial fibrillation/hypertension/anemia- Continue metoprolol succinate with hold parameters Continue to remain off Eliquis at this time Heme test stools Presently in normal sinus rhythm If necessary can reconsult GI again plus minus cardiology to determine risk- benefit ratios At this point risk is greater than benefit, so we will stay off Eliquis Remaining orders and notations as noted Resident Activity Tracking Resident Involvement: Resident Care Provided Care Provided: Adult Hospital Medicine (1) Acute congestive heart failure Heart failure type: unspecified Qualified Code(s): I50.9 - Heart failure, unspecified
[2023-12-18] MEDS: OPTIRAY 320 125ml IV ONE (22:47)
--- NOTE | 2023-12-19 00:30 | CT Scan Report ---
Exam(s): CTA CHEST IV Amt: OPTIRAY 320 119ML EXAM: CT Angiography Chest With Intravenous Contrast CLINICAL HISTORY: Reason for exam: PE. TECHNIQUE: Axial computed tomographic angiography images of the chest with intravenous contrast. CTDI is 24 mGy and DLP is 652 mGy-cm. Automated exposure control was utilized for the study. A dose lowering technique was utilized adhering to the principles of ALARA. MIP reconstructed images were created and reviewed. COMPARISON: Noncontrast CT chest 10/03/23. FINDINGS: Pulmonary arteries: No pulmonary embolus is identified. There is marked pulmonary hypertension, unchanged. Aorta: No acute findings. No aortic aneurysm or dissection. Lungs: Moderate to large compressive atelectasis bilateral lower lobes. Moderate severity dependent atelectasis bilateral upper lobes. Pneumonia in the lower lungs less likely. Mild interstitial pulmonary edema demonstrated. No tracheal or endobronchial lesion is visualized. No mass. Pleural space: Moderate, dependently layering bilateral pleural effusions. No pneumothorax. Heart: Enlarged heart with symmetric left and right ventricular dilatation, stable from prior examination. Minimal coronary artery calcification visualized. No pericardial effusion. Bones/joints: No acute fracture. No dislocation. Old lower left rib fractures noted. Soft tissues: Unremarkable. Lymph nodes: Unremarkable. No enlarged lymph nodes. IMPRESSION: 1. 1. No evidence of pulmonary embolus. Pulmonary hypertension and enlarged heart, unchanged from prior examination. 2. 2. Moderate layering bilateral pleural effusions with moderate to large compressive atelectasis bilateral lower lobes, right worse than left. Underlying pneumonia less likely. 3. 3. Mild interstitial pulmonary edema. Electronically signed by: Shabbir Barreto MD 12/19/23 00:29 AM
[2023-12-19] MEDS: FUROSEMIDE INJ 20 MG/2 ML VIAL IV ONE (01:12)
[2023-12-19] MEDS: ACETAMINOPHEN 325 MG TAB PO PRN (05:56)
--- NOTE | 2023-12-19 07:01 | XRay Report ---
XR chest 1V portable HISTORY: Chest pain, nonspecific COMPARISON: Chest 11/21/2023. FINDINGS: No pneumothorax. The heart remains enlarged. Pulmonary edema and small to moderate pleural effusions have progressed. Patchy bibasilar densities are also noted. This may represent atelectasis from the pleural effusions. A pneumonia could also have a similar appearance. IMPRESSION: 1. Interval progression of the pulmonary edema and bilateral pleural effusions. 2. Patchy bibasilar densities favor atelectasis. A pneumonia could also have a similar appearance. ACT 112: Negative or not required by law. Electronically signed by: Amanuel Roberts M.D. 12/19/2023 7:00 AM
[2023-12-19 07:09] LABS: Albumin Globulin Ratio 1.3 (0.9-2); BUN Creatinine Ratio 30.9 (10-20); Bilirubin,Total 0.4 mg/dl (0.2-1.0); Calcium 9.3 mg/dl (8.6-10.3); Est GFR (African American) 77.3 ml/min; Est GFR (Non-African American) 66.7 ml/min; Globulin 2.4 gm/dl (2.5-4.0); Magnesium 1.7 mg/dl (1.7-2.4); Potassium 3.6 mmol/L (3.5-5.1); Total Protein 5.4 gm/dl (6.0-8.3)
[2023-12-19 07:28] LABS: Ferritin 64.9 ng/ml (8-388)
[2023-12-19 07:32] LABS: Hematocrit (blood only) 25.1 % (37.0-47.0); Hemoglobin 7.9 g/dl (12.0-16.0); Mean Corpuscular Hemoglobin 26.5 pg (25.0-34.0); Mean Corpuscular Hgb Conc 31.5 g/dL (32.0-36.0); Mean Corpuscular Volume 84.2 fL (80.0-100.0); Mean Platelet Volume 11.2 fL (9.4-12.4); Platelet Count 276 K/uL (130-400); RDW Coefficient of Variation 18.6 % (11.5-14.5); RDW Standard Deviation 56.1 fL (36.4-46.3); Red Blood Count 2.98 M/uL (4.20-5.40); White Blood Count 3.77 K/ul (4.8-10.8)
--- NOTE | 2023-12-19 07:45 | Hospitalist Progress Note ---
Date of Service December 19, 2023 Assessment & Plan (1) Acute congestive heart failure: Plan: Heart failure preserved ejection fraction. Acute on chronic diastolic heart failure. - CXR with pulm vascular congestion, elevated BNP- consistent with acute on chronic HFpEF - CTA shows no PE, consistent with pulmonary hypertension and pulmonary edema - last TTE 10/04/2023 with EF= 55-60%, grade 1 diastolic dysfunction - IV diuretics while admitted typically on torsemide 60. Lasix equivalent dose will 120-40. Therefore will increase Lasix dosing. But not to the equivalent dose given her diuresis with IV medications will follow renal function and adjust as needed - fluid restriction 1800ml/day home diuretic regimen- 12.5 spironolactone, 60mg torsemide; (2) Paroxysmal A-fib: Plan: - had been on Eliquis up until 10/31/23 when [facility] held due to concern for downtrending hemoglobin - currently in NSR - upon last d/c GI had recommend resuming Eliquis 11/26; but looking at documentation from [facility] does not look like it has been resumed- hemoglobin has been slowly downtrending again with most recent 7.3 on 12/12 - (3) Anemia: Plan: - hemoglobin has been slowly downtrending since last d/c - At this point has had both Endoscopy and Colonoscopy without definitive cause for anemia; could consider capsule endoscopy as an outpatient - iron low normal but binding capacity is high and transferrin sat is low, B12 and folate are normal, will consider venofer infusion - continue oral iron supplementation Plan chronic hypertension stable-metoprolol chronic depression stable- lexapro chronic GERD, on ppi chronic osteomyelitis right ankle, completing antibiotics 12/11 Code: DNR/DNI VTE Prophylaxis: SCD, defer chemical at admission due to acute anemia Admission and Anticipated Discharge Date Admission Date: December 18, 2023 Subjective Patient says she does feel somewhat better with her breathing. She is -1200 with fluid. She still has fairly significant lower extremity edema. Physical Exam Physical Exam: Patient has regular cardiac exam, only moderate JVD lungs have diminished breath sounds at the bases consistent with her known pulmonary Cloral effusions. She has massive lower extremity edema Results & Data Results & Data Vital Signs (Past 12 Hours) Vital Signs Temp Pulse Pulse Resp BP BP Pulse Ox 12/19/23 03:41 97.7 F 73 16 150/83 H 97 12/19/23 00:08 79 12/19/23 00:00 12/19/23 00:00 97.9 F 84 20 127/79 92 12/18/23 23:38 12/18/23 23:34 76 18 155/76 H 100 12/18/23 23:00 78 20 140/102 H 100 12/18/23 22:41 24 128/65 97 12/18/23 22:41 82 24 96 12/18/23 22:13 127/73 97 12/18/23 21:57 80 24 128/63 98 12/18/23 20:55 76 24 99 12/18/23 20:55 99 12/18/23 20:44 78 12/18/23 20:33 26 H 12/18/23 20:33 97 12/18/23 20:33 12/18/23 20:33 98.2 F 80 24 145/69 H 98 O2 Del Method O2 Flow Rate 12/19/23 03:41 Room Air 12/19/23 00:08 12/19/23 00:00 Nasal Cannula 2 12/19/23 00:00 Nasal Cannula 2 12/18/23 23:38 Nasal Cannula 2 12/18/23 23:34 Nasal Cannula 2 12/18/23 23:00 Nasal Cannula 2 12/18/23 22:41 Nasal Cannula 2 12/18/23 22:41 Nasal Cannula 2 12/18/23 22:13 Nasal Cannula 2 12/18/23 21:57 Nasal Cannula 2 12/18/23 20:55 Nasal Cannula 2 12/18/23 20:55 Nasal Cannula 2 12/18/23 20:44 12/18/23 20:33 12/18/23 20:33 Nasal Cannula 2 12/18/23 20:33 Nasal Cannula 2 12/18/23 20:33 Nasal Cannula 2 Laboratory Results Reviewed chemistry reviewed CBC PG Care Time/CCT Total # of Minutes Spent Total Time Spent with Patient: Total time spent is greater than 50% in coordination of care (as documented) at patient's floor/unit and/or counseling patient: Coding Level of Care Code 56964 SUB INP/OBS CARE 3/50MIN Diagnoses Acute congestive heart failure I50.9 Heart failure type: unspecified Paroxysmal A-fib I48.0 Anemia D64.9 (1) Acute congestive heart failure Heart failure type: unspecified Qualified Code(s): I50.9 - Heart failure, unspecified
[2023-12-19] MEDS ORDERED: SPIRONOLACTONE 12.5 MG TAB PO SCH (09:00)
--- NOTE | 2023-12-19 09:04 | Electrocardiogram Report ---
Test Reason : Blood Pressure : / mmHG Vent. Rate : 078 BPM Atrial Rate : 078 BPM P-R Int : 290 ms QRS Dur : 096 ms QT Int : 362 ms P-R-T Axes : 038 006 025 degrees QTc Int : 412 ms Poor data quality, interpretation may be adversely affected Sinus rhythm with 1st degree A-V block Otherwise normal ECG When compared with ECG of 21-NOV-2023 15:09, No significant change was found Confirmed by Ugo Padilla ([id number]) on 12/19/2023 9:04:06 AM Referred By: [facility] Confirmed By:Ugo Padilla
[2023-12-19] MEDS: ESCITALOPRAM OXALATE 10 MG TAB PO SCH (09:07)
[2023-12-19] MEDS: GABAPENTIN 100 MG CAP PO SCH (09:07)
[2023-12-19] MEDS: FUROSEMIDE INJ 20 MG/2 ML VIAL IV SCH (09:07)
[2023-12-19] MEDS: POTASSIUM CHLORIDE CRTAB 20 MEQ TABCR PO SCH (09:07)
[2023-12-19] MEDS: METOPROLOL SUCC 25MG EXT REL TAB PO SCH (09:07)
[2023-12-19] MEDS: CEROVITE ADV FORMULA TAB PO SCH (09:08)
[2023-12-19] MEDS: FERROUS SULFATE 325 MG TAB PO SCH (09:08)
[2023-12-19] MEDS: RALOXIFENE HCL 60 MG TAB PO SCH (09:08)
[2023-12-19] MEDS: ADVANCED PROBIOTIC 625 MG CAPSULE PO SCH (09:08)
[2023-12-19] MEDS: PANTOprazole 40 MG TAB PO SCH (09:08)
[2023-12-19] MEDS: MICONAZOLE NITRATE POWDER 85 GM EXT PRN (11:36)
--- NOTE | 2023-12-19 16:43 | XCELERA ---
[id number]
--- NOTE | 2023-12-19 19:40 | Billing Data ---
Date of Service December 19, 2023 Coding Level of Care Code 45688 INT INP/OBS CARE
[2023-12-19] MEDS: LORazepam 0.5 MG TAB PO SCH (20:46)
[2023-12-20] MEDS: MELATONIN 3 MG TAB PO ONE (04:04)
[2023-12-20 06:32] LABS: Hematocrit (blood only) 23.4 % (37.0-47.0); Hemoglobin 7.4 g/dl (12.0-16.0); Mean Corpuscular Hemoglobin 26.6 pg (25.0-34.0); Mean Corpuscular Hgb Conc 31.6 g/dL (32.0-36.0); Mean Corpuscular Volume 84.2 fL (80.0-100.0); Mean Platelet Volume 11.1 fL (9.4-12.4); Platelet Count 242 K/uL (130-400); RDW Coefficient of Variation 18.6 % (11.5-14.5); RDW Standard Deviation 56.4 fL (36.4-46.3); Red Blood Count 2.78 M/uL (4.20-5.40); White Blood Count 3.57 K/ul (4.8-10.8)
[2023-12-20 07:07] LABS: Albumin Globulin Ratio 1.3 (0.9-2); Albumin Level 2.7 gm/dl (3.4-5.0); BUN Creatinine Ratio 29.5 (10-20); Bilirubin,Total 0.3 mg/dl (0.2-1.0); Est GFR (African American) 69.9 ml/min; Est GFR (Non-African American) 60.3 ml/min; Globulin 2.1 gm/dl (2.5-4.0); Magnesium 1.7 mg/dl (1.7-2.4); Potassium 3.7 mmol/L (3.5-5.1); Total Protein 4.8 gm/dl (6.0-8.3)
[2023-12-20] MEDS: FUROSEMIDE 40 MG/4 ML VIAL IV SCH ×2 (08:55→17:23)
--- NOTE | 2023-12-20 09:30 | Hospitalist Progress Note ---
Date of Service December 20, 2023 Assessment & Plan (1) Acute congestive heart failure: Plan: Heart failure preserved ejection fraction. Acute on chronic diastolic heart failure. - CXR with pulm vascular congestion, elevated BNP- consistent with acute on chronic HFpEF - CTA shows no PE, consistent with pulmonary hypertension and pulmonary edema - last TTE 10/04/2023 with EF= 55-60%, grade 1 diastolic dysfunction Lasix increased to 80 twice daily with additional dose of metolazone before the p.m. dose on 12/20/2023 - fluid restriction 1800ml/day home diuretic regimen- 12.5 spironolactone, 60mg torsemide; Patient's morbid obesity likely suggests her to be a risk factor for obstructive sleep apnea which could lead to cor pulmonale and her massive edemawill have a nocturnal oxygen study (2) Paroxysmal A-fib: Plan: - had been on Eliquis up until 10/31/23 when [facility] held due to concern for downtrending hemoglobin - currently in NSR - upon last d/c GI had recommend resuming Eliquis 11/26; but looking at documentation from [facility] does not look like it has been resumed- hemoglobin has been slowly downtrending again with most recent 7.3 on 12/12 - (3) Anemia: Plan: - hemoglobin has been slowly downtrending since last d/c - At this point has had both Endoscopy and Colonoscopy without definitive cause for anemia; could consider capsule endoscopy as an outpatient - iron low normal but binding capacity is high and transferrin sat is low, B12 and folate are normal, will consider venofer infusion - continue oral iron supplementation Plan chronic hypertension stable-metoprolol chronic depression stable- lexapro chronic GERD, on ppi chronic osteomyelitis right ankle, completing antibiotics 12/11 Code: DNR/DNI VTE Prophylaxis: SCD, defer chemical at admission due to acute anemia Admission and Anticipated Discharge Date Admission Date: December 18, 2023 Subjective Patient says she does feel somewhat better with her breathing. She feels she is not significant at her baseline. She has not had robust diuresis. She still has fairly significant lower extremity edema. Physical Exam Physical Exam: Patient has regular cardiac exam, only JVD Gl[place]y to right-sided heart failure versus cor pulmonale, lungs have diminished breath sounds at the bases consistent with her known pulmonary pleural effusions. She has massive lower extremity edema Results & Data Results & Data Vital Signs (Past 12 Hours) Vital Signs Temp Pulse Pulse Resp BP Pulse Ox O2 Del Method 12/20/23 08:03 97.3 F L 65 18 122/77 100 Nasal Cannula 12/20/23 07:03 58 L 12/20/23 03:55 98.1 F 68 16 126/73 98 Room Air 12/19/23 23:03 97.7 F 69 16 120/74 99 Room Air 12/19/23 21:57 64 O2 Flow Rate 12/20/23 08:03 3 12/20/23 07:03 12/20/23 03:55 12/19/23 23:03 12/19/23 21:57 Laboratory Results Reviewed CBC reviewed chemistry PG Care Time/CCT Total # of Minutes Spent Total Time Spent with Patient: Total time spent is greater than 50% in coordination of care (as documented) at patient's floor/unit and/or counseling patient: Coding Level of Care Code 29534 SUB INP/OBS CARE 3/50MIN Diagnoses Acute congestive heart failure I50.9 Heart failure type: unspecified Paroxysmal A-fib I48.0 Anemia D64.9 (1) Acute congestive heart failure Heart failure type: unspecified Qualified Code(s): I50.9 - Heart failure, unspecified
[2023-12-20] MEDS: FUROSEMIDE 40 MG/4 ML VIAL IV ONE (09:49)
[2023-12-20] MEDS: metOLazone 5 MG TABLET PO ONE (16:32)
[2023-12-20] MEDS: FENOFIBRATE NANOCRYSTALLIZED 145 MG TABLET PO SCH (17:24)
[2023-12-20] MEDS: busPIRone 5 MG TAB PO SCH (20:04)
[2023-12-21 06:47] LABS: Hematocrit (blood only) 25.1 % (37.0-47.0); Hemoglobin 7.9 g/dl (12.0-16.0); Mean Corpuscular Hemoglobin 26.7 pg (25.0-34.0); Mean Corpuscular Hgb Conc 31.5 g/dL (32.0-36.0); Mean Corpuscular Volume 84.8 fL (80.0-100.0); Mean Platelet Volume 11.2 fL (9.4-12.4); Platelet Count 254 K/uL (130-400); RDW Coefficient of Variation 18.4 % (11.5-14.5); RDW Standard Deviation 56.9 fL (36.4-46.3); Red Blood Count 2.96 M/uL (4.20-5.40); White Blood Count 3.95 K/ul (4.8-10.8)
[2023-12-21 07:06] LABS: BUN Creatinine Ratio 25.9 (10-20); Calcium 9.2 mg/dl (8.6-10.3); Creatinine Clr Calc Pharmacy 48.1 ml/min; Est GFR (African American) 52.2 ml/min; Est GFR (Non-African American) 45.1 ml/min; Magnesium 1.8 mg/dl (1.7-2.4); Potassium 3.6 mmol/L (3.5-5.1)
[2023-12-21] MEDS: ENOXAPARIN INJ 40 MG/0.4 ML SYR SQ SCH (13:31)
--- NOTE | 2023-12-21 14:40 | Ultrasound Report ---
BILATERAL LOWER EXTREMITY VENOUS DOPPLER HISTORY: Lower extremity edema. COMPARISON STUDY: None. FINDINGS: There is normal compressibility, flow, and augmentation within the bilateral lower extremit y deep venous systems. Bilateral lower extremity edema is noted. IMPRESSION: No DVT within the right or left lower extremity. ACT 112: Negative or not required by law. Electronically signed by: Amanuel Roberts M.D. 12/21/2023 2:38 PM
--- NOTE | 2023-12-21 16:20 | Hospitalist Progress Note ---
Date of Service December 21, 2023 Assessment & Plan (1) Acute congestive heart failure: Plan: Heart failure preserved ejection fraction. Acute on chronic diastolic heart failure. - CXR with pulm vascular congestion, elevated BNP- consistent with acute on chronic HFpEF - CTA shows no PE, consistent with pulmonary hypertension and pulmonary edema -Lower extremity Doppler without DVT - last TTE 10/04/2023 with EF= 55-60%, grade 1 diastolic dysfunction Lasix increased to 80 twice daily with additional dose of metolazone before the p.m. dose on 12/20/2023 - fluid restriction 1800ml/day Will try BiPAP as recommended by pulmonary medicine on the evening of 12/21/2023. home diuretic regimen- 12.5 spironolactone, 60mg torsemide; Patient's morbid obesity likely suggests her to be a risk factor for obstructive sleep apnea which could lead to cor pulmonale and her massive edemawill have a nocturnal oxygen study (2) Paroxysmal A-fib: Plan: - had been on Eliquis up until 10/31/23 when [facility] held due to concern for downtrending hemoglobin - currently in NSR - upon last d/c GI had recommend resuming Eliquis 11/26; but looking at documentation from [facility] does not look like it has been resumed- hemoglobin has been slowly downtrending again with most recent 7.3 on 12/12 -Patient on prevention dose Lovenox at this time for DVT prevention not treatment of atrial fibrillation (3) Anemia: Plan: - hemoglobin has been slowly downtrending since last d/c - At this point has had both Endoscopy and Colonoscopy without definitive cause for anemia; could consider capsule endoscopy as an outpatient - iron low normal but binding capacity is high and transferrin sat is low, B12 and folate are normal, will consider venofer infusion - continue oral iron supplementation Plan chronic hypertension stable-metoprolol chronic depression stable- lexapro added buspirone on the try to help with anxiety chronic GERD, on ppi chronic osteomyelitis right ankle, completing antibiotics 12/11 Code: DNR/DNI VTE Prophylaxis: SCD, defer chemical at admission due to acute anemia Admission and Anticipated Discharge Date Admission Date: December 18, 2023 Subjective We have not made dramatic improvement in this patient's breathing difficult to tell exactly what its etiology is. She has an negative echo negative CTA and attempts at increasing diuresis have not been met with great output. Will try to improve anxiety by using buspirone in addition to her typical Lexapro. With regard to her massive lower extremity edema we have ruled out lower extremity D VT. She does have nocturnal hypoxemia and in the September note from pulmonary medicine BiPAP was suggested. This will be once again tried in the evening of 12/21/2023 Physical Exam Physical Exam: Patient has regular cardiac exam, lungs have diminished breath sounds at the bases consistent with her known pulmonary pleural effusions. She has massive lower extremity edema Results & Data Results & Data Vital Signs (Past 12 Hours) Vital Signs Temp Pulse Pulse Resp BP BP Pulse Ox 12/21/23 15:37 67 12/21/23 15:00 97.7 F 73 18 110/68 95 12/21/23 11:22 97.7 F 70 18 130/76 100 12/21/23 10:00 12/21/23 07:47 58 L 12/21/23 07:36 97.9 F 70 18 144/83 H 99 O2 Del Method O2 Flow Rate 12/21/23 15:37 12/21/23 15:00 Nasal Cannula 2 12/21/23 11:22 Nasal Cannula 2 12/21/23 10:00 Nasal Cannula 2 12/21/23 07:47 12/21/23 07:36 Nasal Cannula 2 Laboratory Results Reviewed CBC reviewed chemistry PG Care Time/CCT Total # of Minutes Spent Total Time Spent with Patient: Total time spent is greater than 50% in coordination of care (as documented) at patient's floor/unit and/or counseling patient: Coding Level of Care Code 46684 SUB INP/OBS CARE 2/35MIN Diagnoses Acute congestive heart failure I50.9 Heart failure type: unspecified Paroxysmal A-fib I48.0 Anemia D64.9 (1) Acute congestive heart failure Heart failure type: unspecified Qualified Code(s): I50.9 - Heart failure, unspecified
[2023-12-22 07:15] LABS: Hematocrit (blood only) 24.8 % (37.0-47.0); Hemoglobin 7.6 g/dl (12.0-16.0); Mean Corpuscular Hemoglobin 25.9 pg (25.0-34.0); Mean Corpuscular Hgb Conc 30.6 g/dL (32.0-36.0); Mean Corpuscular Volume 84.6 fL (80.0-100.0); Mean Platelet Volume 11.9 fL (9.4-12.4); Platelet Count 260 K/uL (130-400); RDW Coefficient of Variation 18.4 % (11.5-14.5); RDW Standard Deviation 56.8 fL (36.4-46.3); Red Blood Count 2.93 M/uL (4.20-5.40); White Blood Count 4.08 K/ul (4.8-10.8)
[2023-12-22 08:07] LABS: BUN Creatinine Ratio 24.4 (10-20); Calcium 9.3 mg/dl (8.6-10.3); Creatinine Clr Calc Pharmacy 40.2 ml/min; Est GFR (African American) 41.7 ml/min; Magnesium 1.8 mg/dl (1.7-2.4); Potassium 3.5 mmol/L (3.5-5.1)
[2023-12-22] MEDS: SOD PHOSPHATE/SOD BIPHOSPHATE ENEMA 132 ML BTL PR STA (12:12)
--- NOTE | 2023-12-22 12:46 | XRay Report ---
SINGLE VIEW CHEST CLINICAL HISTORY: Dyspnea FINDINGS: An AP, portable, upright chest radiograph is compared to chest x-ray and chest CT dated 11/21. The heart is enlarged noting atherosclerotic calcification of the thoracic aorta. There is pu lmonary vascular congestion with evidence of interstitial edema. There are layering pleural effusions with dependent consolidation. No pneumothorax is seen. The skeletal structures are osteopenic. The b sandra thorax is grossly intact. IMPRESSION: 1. Cardiomegaly with evidence of congestive failure and pulmonary edema. 2. Layering pleural effusions with dependent consolidation. This is similar to previous. ACT 112: Negative or not required by law. Electronically signed by: Felipe Perera M.D. 12/22/2023 12:45 PM
--- NOTE | 2023-12-22 22:37 | Hospitalist Progress Note ---
Date of Service December 22, 2023 Assessment & Plan (1) Acute congestive heart failure: Plan: Heart failure preserved ejection fraction. Acute on chronic diastolic heart failure. - CXR with pulm vascular congestion, elevated BNP- consistent with acute on chronic HFpEF - CTA shows no PE, consistent with pulmonary hypertension and pulmonary edema -Lower extremity Doppler without DVT - last TTE 10/04/2023 with EF= 55-60%, grade 1 diastolic dysfunction Lasix increased to 80 twice daily with additional dose of metolazone before the p.m. dose on 12/20/2023 - fluid restriction 1800ml/day Will try BiPAP as recommended by pulmonary medicine on the evening of 12/21/2023. home diuretic regimen- 12.5 spironolactone, 60mg torsemide; Patient's morbid obesity likely suggests her to be a risk factor for obstructive sleep apnea which could lead to cor pulmonale and her massive edemawill have a nocturnal oxygen study [facility] Will also consult pulmonary for SOB. (2) Paroxysmal A-fib: Plan: - had been on Eliquis up until 10/31/23 when [facility] held due to concern for downtrending hemoglobin - currently in NSR - upon last d/c GI had recommend resuming Eliquis 11/26; but looking at d ocumentation from [facility] does not look like it has been resumed- hemoglobin has been slowly downtrending again with most recent 7.3 on 12/12 -Patient on prevention dose Lovenox at this time for DVT prevention not treatment of atrial fibrillation (3) Anemia: Plan: - hemoglobin has been slowly downtrending since last d/c - At this point has had both Endoscopy and Colonoscopy without definitive cause for anemia; could consider capsule endoscopy as an outpatient - iron low normal but binding capacity is high and transferrin sat is low, B12 and folate are normal, will consider venofer infusion - continue oral iron supplementation Plan chronic hypertension stable-metoprolol chronic depression stable- lexapro added buspirone on the try to help with anxiety chronic GERD, on ppi chronic osteomyelitis right ankle, completing antibiotics 12/11 Code: DNR/DNI VTE Prophylaxis: SCD, defer chemical at admission due to acute anemia Admission and Anticipated Discharge Date Admission Date: December 18, 2023 Subjective Patient reports not feeling well enough for discharge. Patient continues to feel SOB. Review of Systems Review of Systems: All systems reviewed & are unremarkable except as noted in HPI & below Physical Exam 2 Physical Exam: Patient has regular cardiac exam, lungs have diminished breath sounds at the bases consistent with her known pulmonary pleural effusions. She has massive lower extremity edema Results & Data Results & Data Vital Signs (Past 12 Hours) Vital Signs Temp Pulse Pulse Resp BP BP Pulse Ox 12/22/23 21:00 12/22/23 20:44 36.7 C 66 20 134/79 93 12/22/23 15:59 36.4 C 64 16 105/59 L 99 12/22/23 15:18 59 L 12/22/23 11:09 36.6 C 76 20 107/65 97 O2 Del Method O2 Flow Rate 12/22/23 21:00 Nasal Cannula 2 12/22/23 20:44 Nasal Cannula 3 12/22/23 15:59 Nasal Cannula 3 12/22/23 15:18 12/22/23 11:09 Nasal Cannula 3 PG Care Time/CCT Total # of Minutes Spent Total Time Spent with Patient: Total time spent is greater than 50% in coordination of care (as documented) at patient's floor/unit and/or counseling patient: Coding Level of Care Code 63018 SUB INP/OBS CARE 2/35MIN Diagnoses Acute congestive heart failure I50.9 Heart failure type: unspecified Paroxysmal A-fib I48.0 Anemia D64.9 (1) Acute congestive heart failure Heart failure type: unspecified Qualified Code(s): I50.9 - Heart failure, unspecified
[2023-12-23 07:06] LABS: Hematocrit (blood only) 25.6 % (37.0-47.0); Mean Corpuscular Hemoglobin 26.1 pg (25.0-34.0); Mean Corpuscular Hgb Conc 31.3 g/dL (32.0-36.0); Mean Corpuscular Volume 83.7 fL (80.0-100.0); Mean Platelet Volume 11.3 fL (9.4-12.4); Platelet Count 257 K/uL (130-400); RDW Coefficient of Variation 18.6 % (11.5-14.5); RDW Standard Deviation 56.2 fL (36.4-46.3); Red Blood Count 3.06 M/uL (4.20-5.40); White Blood Count 4.13 K/ul (4.8-10.8)
[2023-12-23 07:34] LABS: BUN Creatinine Ratio 23.9 (10-20); C Reactive Protein 0.81 mg/dl (0-0.5); Calcium 9.5 mg/dl (8.6-10.3); Creatinine Clr Calc Pharmacy 38.8 ml/min; Est GFR (African American) 40.6 ml/min; Magnesium 1.9 mg/dl (1.7-2.4); Potassium 3.3 mmol/L (3.5-5.1)
[2023-12-23] MEDS: POTASSIUM CHLORIDE CRTAB 20 MEQ TABCR PO STA (16:45)
--- NOTE | 2023-12-23 21:57 | Hospitalist Progress Note ---
Date of Service December 23, 2023 Assessment & Plan (1) Acute congestive heart failure: Plan: Heart failure preserved ejection fraction. Acute on chronic diastolic heart failure. - CXR with pulm vascular congestion, elevated BNP- consistent with acute on chronic HFpEF - CTA shows no PE, consistent with pulmonary hypertension and pulmonary edema -Lower extremity Doppler without DVT - last TTE 10/04/2023 with EF= 55-60%, grade 1 diastolic dysfunction Lasix increased to 80 twice daily with additional dose of metolazone before the p.m. dose on 12/20/2023 - fluid restriction 1800ml/day Will try BiPAP as recommended by pulmonary medicine on the evening of 12/21/2023. home diuretic regimen- 12.5 spironolactone, 60mg torsemide; Patient's morbid obesity likely suggests her to be a risk factor for obstructive sleep apnea which could lead to cor pulmonale and her massive edemawill have a nocturnal oxygen study WIll continue to [facility]. Held off consult for pulmnary given that this likely is from heart failure. (2) Paroxysmal A-fib: Plan: - had been on Eliquis up until 10/31/23 when [facility] held due to concern for downtrending hemoglobin - currently in NSR - upon last d/c GI had recommend resuming Eliquis 11/26; but looking at documentation from [facility] does not look like it has been resumed- hemoglobin has been slowly downtrending again with most recent 7.3 on 12/12 -Patient on prevention dose Lovenox at this time for DVT prevention not treatment of atrial fibrillation (3) Anemia: Plan: - hemoglobin has been slowly downtrending since last d/c - At this point has had both Endoscopy and Colonoscopy without definitive cause for anemia; could consider capsule endoscopy as an outpatient - iron low normal but binding capacity is high and transferrin sat is low, B12 and folate are normal, will consider venofer infusion - continue oral iron supplementation Plan chronic hypertension stable-metoprolol chronic depression stable- lexapro added buspirone on the try to help with anxiety chronic GERD, on ppi chronic osteomyelitis right ankle, completing antibiotics 12/11 Code: DNR/DNI VTE Prophylaxis: SCD, defer chemical at admission due to acute anemia Admission and Anticipated Discharge Date Admission Date: December 18, 2023 Subjective Patient reports no improvement in her symptoms. Review of Systems Review of Systems: All systems reviewed & are unremarkable except as noted in HPI & below Physical Exam Physical Exam: Patient has regular cardiac exam, lungs have diminished breath sounds at the bases consistent with her known pulmonary pleural effusions. She has massive lower extremity edema Results & Data Results & Data Vital Signs (Past 12 Hours) Vital Signs Temp Pulse Pulse Resp BP Pulse Ox O2 Del Method 12/23/23 21:40 Nasal Cannula 12/23/23 19:03 36.6 C 76 18 136/80 97 Nasal Cannula 12/23/23 16:23 36.6 C 70 18 123/56 L 90 Nasal Cannula 12/23/23 15:37 62 12/23/23 12:22 36.4 C L 68 18 115/72 97 Nasal Cannula O2 Flow Rate 12/23/23 21:40 3 12/23/23 19:03 3 12/23/23 16:23 3 12/23/23 15:37 12/23/23 12:22 2 PG Care Time/CCT Total # of Minutes Spent Total Time Spent with Patient: Total time spent is greater than 50% in coordination of care (as documented) at patient's floor/unit and/or counseling patient: Coding Level of Care Code 79268 SUB INP/OBS CARE 2/35MIN Diagnoses Acute congestive heart failure I50.9 Heart failure type: unspecified Paroxysmal A-fib I48.0 Anemia D64.9 (1) Acute congestive heart failure Heart failure type: unspecified Qualified Code(s): I50.9 - Heart failure, unspecified
[2023-12-24 07:30] LABS: Base Excess VBG 8.4 mEq/L; HCO3 VBG 35 mmol/L; Oxygen Saturation VBG 96.9 %; PCO2 VBG 55 mmHg (38-50); PO2 VBG 76 mmHg; pH VBG 7.41 (7.36-7.41)
[2023-12-24 07:38] LABS: Hematocrit (blood only) 25.4 % (37.0-47.0); Hemoglobin 7.9 g/dl (12.0-16.0); Mean Corpuscular Hemoglobin 26.3 pg (25.0-34.0); Mean Corpuscular Hgb Conc 31.1 g/dL (32.0-36.0); Mean Corpuscular Volume 84.7 fL (80.0-100.0); Platelet Count 254 K/uL (130-400); RDW Coefficient of Variation 18.7 % (11.5-14.5); RDW Standard Deviation 57.2 fL (36.4-46.3); White Blood Count 4.06 K/ul (4.8-10.8)
[2023-12-24 07:59] LABS: C Reactive Protein 1.37 mg/dl (0-0.5); Calcium 9.4 mg/dl (8.6-10.3); Creatinine Clr Calc Pharmacy 43.4 ml/min; Est GFR (African American) 46.6 ml/min; Est GFR (Non-African American) 40.2 ml/min; Potassium 3.6 mmol/L (3.5-5.1)
[2023-12-24] MEDS: guaiFENesin SUGAR FREE 200 MG/10 ML UDC PO PRN (15:24)
--- NOTE | 2023-12-24 20:54 | Hospitalist Progress Note ---
Date of Service December 24, 2023 Assessment & Plan (1) Acute congestive heart failure: Plan: Heart failure preserved ejection fraction. Acute on chronic diastolic heart failure. - CXR with pulm vascular congestion, elevated BNP- consistent with acute on chronic HFpEF - CTA shows no PE, consistent with pulmonary hypertension and pulmonary edema -Lower extremity Doppler without DVT - last TTE 10/04/2023 with EF= 55-60%, grade 1 diastolic dysfunction Lasix increased to 80 twice daily with additional dose of metolazone before the p.m. dose on 12/20/2023 - fluid restriction 1800ml/day Will try BiPAP as recommended by pulmonary medicine on the evening of 12/21/2023. home diuretic regimen- 12.5 spironolactone, 60mg torsemide; Patient's morbid obesity likely suggests her to be a risk factor for obstructive sleep apnea which could lead to cor pulmonale and her massive edemawill have a nocturnal oxygen study WIll continue to [facility]. Not improving much. Also difficult because patient is refusing Physical therapy and any sort of activity. Patient has been in bed during her hospital stay. This will lead to weakness and worsening morbidity and mortality. (2) Paroxysmal A-fib: Plan: - had been on Eliquis up until 10/31/23 when [facility] held due to concern for downtrending hemoglobin - currently in NSR - upon last d/c GI had recommend resuming Eliquis 11/26; but looking at documentation from [facility] does not look like it has been resumed- hemoglobin has been slowly downtrending again with most recent 7.3 on 12/12 -Patient on prevention dose Lovenox at this time for DVT prevention not treatment of atrial fibrillation (3) Anemia: Plan: - hemoglobin has been slowly downtrending since last d/c - At this point has had both Endoscopy and Colonoscopy without definitive cause for anemia; could consider capsule endoscopy as an outpatient - iron low normal but binding capacity is high and transferrin sat is low, B12 and folate are normal, will consider venofer infusion - continue oral iron supplementation Plan chronic hypertension stable-metoprolol chronic depression stable- lexapro added buspirone on the try to help with anxiety chronic GERD, on ppi chronic osteomyelitis right ankle, completing antibiotics 12/11 Code: DNR/DNI VTE Prophylaxis: SCD, defer chemical at admission due to acute anemia Admission and Anticipated Discharge Date Admission Date: December 18, 2023 Subjective Patient reports breathing has not improved. She refuses to get out of bed. Review of Systems Review of Systems: All systems reviewed & are unremarkable except as noted in HPI & below Physical Exam Physical Exam: Patient has regular cardiac exam, lungs have diminished breath sounds at the bases consistent with her known pulmonary pleural effusions. She has massive lower extremity edema Results & Data Results & Data Vital Signs (Past 12 Hours) Vital Signs Temp Pulse Pulse Resp BP Pulse Ox O2 Del Method 12/24/23 20:45 Nasal Cannula 12/24/23 19:00 36.8 C 82 18 117/70 93 Nasal Cannula 12/24/23 16:01 36.5 C 69 18 122/57 L 100 Nasal Cannula 12/24/23 14:58 75 12/24/23 11:56 36.6 C 74 18 133/73 95 Nasal Cannula O2 Flow Rate 12/24/23 20:45 3 12/24/23 19:00 2 12/24/23 16:01 2 12/24/23 14:58 12/24/23 11:56 3 PG Care Time/CCT Total # of Minutes Spent Total Time Spent with Patient: Total time spent is greater than 50% in coordination of care (as documented) at patient's floor/unit and/or counseling patient: Coding Level of Care Code 22935 SUB INP/OBS CARE 2/35MIN Diagnoses Acute congestive heart failure I50.9 Heart failure type: unspecified Paroxysmal A-fib I48.0 Anemia D64.9 (1) Acute congestive heart failure Heart failure type: unspecified Qualified Code(s): I50.9 - Heart failure, unspecified
--- NOTE | 2023-12-25 08:30 | XRay Report ---
XR chest 1V portable HISTORY: Shortness of breath. COMPARISON: Chest 12/22/2023. FINDINGS: No pneumothorax. The cardiac silhouette remains enlarged. Pulmonary edema, bilateral pleura l effusions, bibasilar densities have slightly improved. Calcifications within the aortic knob. Degen erative changes within the right shoulder. IMPRESSION: Slight improvement in the pulmonary edema, bilateral pleural effusions, and bibasilar densities. ACT 112: Negative or not required by law. Electronically signed by: Amanuel Roberts M.D. 12/25/2023 8:28 AM
[2023-12-25] MEDS: FUROSEMIDE 40 MG/4 ML VIAL IV SCH ×2 (09:21→22:57)
[2023-12-25] MEDS: LEVALBUTEROL 1.25 MG/3 ML NEB NEB PRN (11:41)
--- NOTE | 2023-12-25 15:37 | Nephrology Consultation ---
Date of Consultation December 25, 2023 Assessment & Plan (1) Acute congestive heart failure: currently on lasix 80 mg tid IV which was just intensified > given her dypsnea will intensify to 80 mg qid with goal of 2L negative for today >>tightened FR to 1.5 L given diuresis needs >will increase K supplements to bid 20 mEq given aggressive diuresis >daily bmp ordered x 4; bmp from this PM looks ok (2) CKD (chronic kidney disease) stage 3, GFR 30-59 ml/min: CKD 3A w/ baseline creatinine 1.2. at baseline on labs yesterday -lasix as above -she needs daily BMP in hospital -caution w/ tricor in CKD, chris given her frequent JULIO >caution w/ lovenox given her frequent JULIO (3) Anemia: stable but significant. also w/ t sat 11% on admission, so iron deficient. >started venofer load >100 mg today; then 200 mg daily x 4 if tolerates -ordered retic count for am given leukopenia -defer to primary service on further w/u History of Present Illness Reason for Consultation: CKD Requesting Physician: Dr Lincoln Attending Physician: Kermit Lincoln History of Present Illness 83-year-old female whom I am asked to evaluate for CKD was admitted here December 17 for acute on chronic heart failure with preserved ejection fraction. Past medical history includes HFpEF, paroxysmal afib, anemia, HTN, HLD, RADHA GERD, chronic respiratory failure on 2 L of oxygen; chronic osteomyelitis right ankle, anxiety depression. She was admitted here in June after a fall with right ankle fracture and underwent open reduction internal fixation at that time. Since then care has been complicated by chronic right lower extremity wound infection and then chronic osteomyelitis. This is her third hospitalization so far this year. She was hospitalized here in August for management of chronic wound on her right lower extremity; and admitted here in September for right upper lobe pneumonia. she has baseline CKD3A With an exceptionally labile creatinine and a baseline of 1.1-1.2 to the extent we can determine this; she has frequent episodes of acute kidney injury pretty much with every admission. I did see her in clinic in early October of this year in follow-up from prior hospital stays. At that visit I reduced her torsemide to 60 mg daily, started spironolactone 12.5 mg daily and lowered her potassium supplements to 20 mill equivalents daily. she did get the labs requested in follow-up from that visit but follow-up weights and other updates were not readily communicated. She was on this medication regimen on arrival for this admission. her anemia was also noted to be significantly worse in the weeks prior to presentation with Eliquis having been stopped mid October. The patient did not have labs today. Labs yesterday show renal function at baseline with a creatinine of 1.2. She was at 0.9 on presentation with peak creatinine of 1.4 on December 22. She is currently receiving potassium 20 mill equivalents daily, her Lasix was just intensified to Lasix 80 mg IV 3 times a day from twice daily. She does continue with ongoing significant anemia: Yesterday's hemoglobin was 7.9. She tells me she feels dyspneic and more orthopneic. + cough. no n/v, no chest pain/palpitations. tells me she is unable to stand for weights. Allergies Allergy/AdvReac Type Severity Reaction Status Date / Time demeclocycline Allergy Unknown ON CENTRE Verified 12/18/23 22:52 CARE MED LIST sulfamethoxazole Allergy Unknown ON CENTRE Verified 12/18/23 22:52 CARE MED LIST trimethoprim Allergy Unknown ON CENTRE Verified 12/18/23 22:52 CARE MED LIST ropinirole AdvReac Intermediate fluid Verified 12/18/23 22:52 retention pregabalin [From Lyrica] AdvReac Unknown ON CENTRE Verified 12/18/23 22:52 CARE MED LIST Home Medications Medication Instructions Recorded Confirmed Type omega 0-yzb-bvk-fish oil 1,000 mg 1 cap PO QAM 05/05/18 12/18/23 History (120 mg-180 mg) capsule (Fish Oil) raloxifene 60 mg tablet 60 mg PO QAM osteoporosis 05/05/18 12/18/23 History fenofibrate 160 mg tablet 160 mg PO DAILY 12/30/19 12/18/23 History dextromethorphan-guaifenesin 10 10 ml PO Q4H PRN Cough 03/16/22 12/18/23 History mg-100 mg/5 mL oral liquid (Tussin DM) lorazepam 0.5 mg tablet 0.5 mg PO HS 03/16/22 12/18/23 History vit C 250 mg-vit E 90 mg-zinc 40 1 tab PO BIDM 03/16/22 12/18/23 History mg-copper 1 iu-ycthbt-ovttoj capsule (PreserVision AREDS-2) atropine 1 % eye drops 1 drp OPR Q8H PRN Dry Eye(S) 07/12/23 12/18/23 History escitalopram oxalate 10 mg tablet 10 mg PO QAM 07/12/23 12/18/23 History ferrous sulfate 142 mg (45 mg 142 mg PO QAM 07/12/23 12/18/23 History iron) tablet,extended release gabapentin 100 mg capsule 100 mg PO BIDM 07/12/23 12/18/23 History guaifenesin 600 mg tablet, 600 mg PO Q12H PRN Cough 07/12/23 12/18/23 History extended release 12 hr (Mucus Relief ER) L.acidop,casei,lactis,rham-B.lact,karen 2 cap PO QAM 10/02/23 12/18/23 History 625 mg (10 billion cell) capsule (Advanced Probiotic) acetaminophen 325 mg tablet 650 mg PO Q6H PRN fever/pain 10/02/23 12/18/23 History (Tylenol) loperamide 2 mg capsule 2 mg PO Q3H PRN Diarrhea 10/02/23 12/18/23 History pantoprazole 40 mg tablet,delayed 40 mg PO BIDM 11/02/23 12/18/23 History release potassium chloride 20 mEq 20 meq PO QAM 11/02/23 12/18/23 History tablet,extended release(part/cryst) spironolactone 25 mg tablet 12.5 mg PO QAM 11/02/23 12/18/23 History torsemide 60 mg tablet 60 mg PO QAM 11/02/23 12/18/23 History Saccharomyces boulardii 250 mg 250 mg PO BID 11/21/23 12/18/23 History capsule (Florastor) ondansetron HCl 4 mg tablet 4 mg PO Q6H PRN NAUSEA/VOMITING 11/21/23 12/18/23 History oxymetazoline 0.05 % nasal spray 3 spray intranasal DIRECTED PRN 11/21/23 12/18/23 History EPISTAXIS metoprolol succinate 25 mg 12.5 mg PO BIDM 12/18/23 12/18/23 History tablet,extended release 24 hr Patient History Medical History (Updated 12/25/23 @ 15:47 by Nory Parra MD, PhD) CKD (chronic kidney disease) stage 3, GFR 30-59 ml/min Fall Contusion of foot, left Anemia Acute lower GI bleeding Acute pain of left lower extremity Unspecified atrial fibrillation Metabolic encephalopathy History of pneumonia Difficulty in walking, not elsewhere classified Other fracture of right lower leg, subsequent encounter for closed fracture with routine healing Unspecified open wound, right ankle, subsequent encounter Proteus (mirabilis) (morganii) as the cause of diseases classified elsewhere Laceration without foreign body of left ear, subsequent encounter Cognitive communication deficit Dysphagia Wedge compression fracture of fourth lumbar vertebra with routine healing Stress fracture, pelvis, subsequent encounter for fracture with routine healing Weakness Pain in right leg Personal history of COVID-19 History of falling Other abnormalities of gait and mobility Pain in right hip Spinal stenosis, lumbosacral region Muscle weakness (generalized) Hyperlipidemia Hypoxemia Hypo-osmolality and hyponatremia Nocturnal hypoxia Right-sided congestive heart failure Sacral insufficiency fracture Cor pulmonale (chronic) Lumbar stenosis with neurogenic claudication Chronic GERD without esophagitis Right heart failure Dependence on nocturnal oxygen therapy RADHA (obstructive sleep apnea) Dyslipidemia Morbid obesity with BMI of 40.0-44.9, adult Mitral valve prolapse Osteoporosis Chronic acquired lymphedema HTN (hypertension) Chronic back pain Surgical History Hx of cholecystectomy Status post lumbar spine surgery for decompression of spinal cord 2018 Dr. Wan Status post kyphoplasty L3, L4, L5 2018 Dr. Wan Status post tonsillectomy Status post cataract surgery Status post appendectomy Family History Father Family history of colon cancer Brother Family history of prostate cancer Brother Family history of coronary artery disease Sister Family history of coronary artery disease Brother Family history of diabetes mellitus Social History Smoking Status: Never smoker Second Hand Exposure: No; Do You Dip or Chew Tobacco: No; Hx Alcohol Use: No Hx Substance Use: No Preferred Language: Spanish Communication Ability: Effective Communication Ability Comment: confused Cytotechnologist Required: No Beliefs That Will Affect Care: None marital status: Single Current Living Situation: Personal Care Facility Current Living Situation Comment: skilled care facility Other Information That Helps Us Care for You: No Feels Safe at Home: Yes Safety Concerns: Feels Safe At This Time Assistive Devices: Walker and Wheelchair Review of Systems 2 Review of Systems: All systems reviewed & are unremarkable except as noted in HPI & below Physical Exam 2 Constitutional: well developed, well nourished, + physical limitations, + frail appearing and cooperative; no acute distress Eyes: EOM intact bilaterally ENMT: Ears: no external ear abnormality Nose: no external nose abnormality Mouth: + dry oral mucous membranes Neck: no nuchal rigidity Respiratory: + labored breathing, + cough and + prolo nged expiratory phase Auscultation: + diminished lung sounds and + wheezes Cardiovascular: Rate/Rhythm: regular rate and regular rhythm Extremities: + edema Gastrointestinal (Abdomen): Inspection/Auscultation: normal bowel sounds P ercussion/Palpation: abdomen soft; abdomen nontender Musculoskeletal: Extremities: + abnormal strength Skin: no rashes, warm and dry Neurologic: sweet, fluent speech, no tremor Results & Data Vital Signs (Past 12 Hours) Vital Signs Temp Pulse Pulse Resp BP BP Pulse Ox 12/25/23 11:50 36.5 C 71 16 144/80 H 100 12/25/23 11:42 71 18 100 12/25/23 07:46 36.7 C 78 18 128/61 95 12/25/23 07:10 12/25/23 06:57 62 12/25/23 04:00 36.7 C 71 18 133/81 99 O2 Del Method O2 Flow Rate 12/25/23 11:50 Nasal Cannula 4 12/25/23 11:42 Nasal Cannula 4 12/25/23 07:46 Nasal Cannula 4.5 12/25/23 07:10 Nasal Cannula 3 12/25/23 06:57 12/25/23 04:00 Nasal Cannula 3 Laboratory Results 12/24/23 07:19 12/24/23 07:19 Diagnostic Findings cxr w/ pulm edema (images personally reviewed) described by radiology as slightly improved (1) Acute congestive heart failure Heart failure type: unspecified Qualified Code(s): I50.9 - Heart failure, unspecified
[2023-12-25 17:36] LABS: BUN Creatinine Ratio 30.5 (10-20); Calcium 9.5 mg/dl (8.6-10.3); Creatinine Clr Calc Pharmacy 50.4 ml/min; Est GFR (African American) 56.5 ml/min; Est GFR (Non-African American) 48.7 ml/min; Potassium 3.7 mmol/L (3.5-5.1)
--- NOTE | 2023-12-25 22:27 | Hospitalist Progress Note ---
Date of Service December 25, 2023 Assessment & Plan (1) Acute congestive heart failure: Plan: Heart failure preserved ejection fraction. Acute on chronic diastolic heart failure. - CXR with pulm vascular congestion, elevated BNP- consistent with acute on chronic HFpEF - CTA shows no PE, consistent with pulmonary hypertension and pulmonary edema -Lower extremity Doppler without DVT - last TTE 10/04/2023 with EF= 55-60%, grade 1 diastolic dysfunction Lasix increased to 80 twice daily with additional dose of metolazone before the p.m. dose on 12/20/2023 - fluid restriction 1800ml/day Will try BiPAP as recommended by pulmonary medicine on the evening of 12/21/2023. home diuretic regimen- 12.5 spironolactone, 60mg torsemide; Patient's morbid obesity likely suggests her to be a risk factor for obstructive sleep apnea which could lead to cor pulmonale and her massive edemawill have a nocturnal oxygen study WIll continue to diuerese. Not improving much. Also difficult because patient is refusing Physical therapy and any sort of activity. Patient has been in bed during her hospital stay. This will lead to weakness and worsening morbidity and mortality. ON 12/24 Patient now on lasix TID COntinues to be net negative. Will continue to monitor. (2) Paroxysmal A-fib: Plan: - had been on Eliquis up until 10/31/23 when [facility] held due to concern for downtrending hemoglobin - currently in NSR - upon last d/c GI had recommend resuming Eliquis 11/26; but looking at documentation from [facility] does not look like it has been resumed- hemoglobin has been slowly downtrending again with most recent 7.3 on 12/12 -Patient on prevention dose Lovenox at this time for DVT prevention not treatment of atrial fibrillation (3) Anemia: Plan: - hemoglobin has been slowly downtrending since last d/c - At this point has had both Endoscopy and Colonoscopy without definitive cause for anemia; could consider capsule endoscopy as an outpatient - iron low normal but binding capacity is high and transferrin sat is low, B12 and folate are normal, will consider venofer infusion - continue oral iron supplementation Plan chronic hypertension stable-metoprolol chronic depression stable- lexapro added buspirone on the try to help with anxiety chronic GERD, on ppi chronic osteomyelitis right ankle, completing antibiotics 12/11 Code: DNR/DNI VTE Prophylaxis: SCD, defer chemical at admission due to acute anemia Admission and Anticipated Discharge Date Admission Date: December 18, 2023 Subjective 83 yo female reports she is bedriddent for past few months. Patient reports she has not felt much improvement over the past few days. Still SOB Review of Systems Review of Systems: All systems reviewed & are unremarkable except as noted in HPI & below Physical Exam Physical Exam: Patient has regular cardiac exam, lungs have diminished breath sounds at the bases consistent with her known pulmonary pleural effusions. She has massive lower extremity edema Results & Data Results & Data Vital Signs (Past 12 Hours) Vital Signs Temp Pulse Pulse Resp BP Pulse Ox O2 Del Method 12/25/23 19:11 36.7 C 76 18 121/75 97 Nasal Cannula 12/25/23 16:23 36.5 C 75 20 130/62 98 Nasal Cannula 12/25/23 15:37 69 12/25/23 11:50 36.5 C 71 16 144/80 H 100 Nasal Cannula 12/25/23 11:42 71 18 100 Nasal Cannula O2 Flow Rate 12/25/23 19:11 4 12/25/23 16:23 2 12/25/23 15:37 12/25/23 11:50 4 12/25/23 11:42 4 PG Care Time/CCT Total # of Minutes Spent Total Time Spent with Patient: Total time spent is greater than 50% in coordination of care (as documented) at patient's floor/unit and/or counseling patient: Coding Level of Care Code 96760 SUB INP/OBS CARE 2/35MIN Diagnoses Acute congestive heart failure I50.9 Heart failure type: unspecified Paroxysmal A-fib I48.0 Anemia D64.9 (1) Acute congestive heart failure Heart failure type: unspecified Qualified Code(s): I50.9 - Heart failure, unspecified
[2023-12-25] MEDS: POTASSIUM CHLORIDE CRTAB 20 MEQ TABCR PO SCH (22:57)
[2023-12-25] MEDS: IRON SUCROSE 100 MG in 0.9 % SODIUM CHLORIDE 100 ML IV ONE (22:59)
[2023-12-26 06:51] LABS: Hematocrit (blood only) 24.8 % (37.0-47.0); Hemoglobin 7.9 g/dl (12.0-16.0); Mean Corpuscular Hemoglobin 26.9 pg (25.0-34.0); Mean Corpuscular Hgb Conc 31.9 g/dL (32.0-36.0); Mean Corpuscular Volume 84.4 fL (80.0-100.0); Mean Platelet Volume 11.1 fL (9.4-12.4); Platelet Count 260 K/uL (130-400); Red Blood Count 2.94 M/uL (4.20-5.40); Reticulocyte % 2.47 % (0.50-2.00); White Blood Count 3.36 K/ul (4.8-10.8)
[2023-12-26 07:15] LABS: BUN Creatinine Ratio 32.3 (10-20); C Reactive Protein 2.23 mg/dl (0-0.5); Calcium 9.4 mg/dl (8.6-10.3); Creatinine Clr Calc Pharmacy 51.9 ml/min; Est GFR (African American) 60.6 ml/min; Est GFR (Non-African American) 52.3 ml/min; Magnesium 1.8 mg/dl (1.7-2.4); Phosphorus 3.3 mg/dl (2.5-4.9); Potassium 3.8 mmol/L (3.5-5.1)
--- NOTE | 2023-12-26 09:25 | Nephrology Progress Note ---
Date of Service December 26, 2023 Assessment & Plan (1) Acute congestive heart failure: Plan: currently on lasix 80 mg qid IV which was just intensified yesterday > however only about 1.1L negative w/ goal of 2L negative yesterday >> suspect lasix tolerance; trial bumex 4 mg tid IV >keep tomlinson >> cont FR 1.5 L given diuresis needs >cont K supplements to bid 20 mEq given aggressive diuresis >daily bmp >>STRICT I/O (2) CKD (chronic kidney disease) stage 3, GFR 30-59 ml/min: Plan: CKD 3A w/ baseline creatinine 1.2. at baseline -lasix as above -she needs daily BMP in hospital -caution w/ tricor in CKD, chris given her frequent JULIO >caution w/ lovenox given her frequent JULIO (3) Anemia: Plan: stable but significant. also w/ t sat 11% on admission, so iron deficient. retic count appropriately elevated >will give venofer 200 mg daily x 4 now for total of 1 gm after 100 mg on 12/24 -defer to primary service on further w/u Admission and Anticipated Discharge Date Admission Date: December 18, 2023 Subjective not much change in dyspnea today. denies n/v; generalized weakness unchanged Review of Systems 2 Review of Systems: All systems reviewed & are unremarkable except as noted in Subjective Physical Exam 2 Constitutional: well developed, well nourished, + physical limitations, + frail appearing and cooperative; no acute distress Eyes: EOM intact bilaterally ENMT: Ears: no external ear abnormality Nose: no external nose abnormality Mouth: + dry oral mucous membranes Neck: no nuchal rigidity Respiratory: + labored breathing, + cough and + prolo nged expiratory phase Auscultation: + diminished lung sounds and + wheezes Cardiovascular: Rate/Rhythm: regular rate and regular rhythm Extremities: + edema Gastrointestinal (Abdomen): Inspection/Auscultation: normal bowel sounds P ercussion/Palpation: abdomen soft; abdomen nontender Musculoskeletal: Extremities: + abnormal strength Skin: no rashes, warm and dry Results & Data Vital Signs (Past 12 Hours) Vital Signs Temp Pulse Pulse Resp BP Pulse Ox O2 Del Method 12/26/23 08:52 82 24 95 Nasal Cannula 12/26/23 08:32 72 12/26/23 07:39 36.2 C L 73 16 130/73 100 Nasal Cannula 12/26/23 03:42 36.6 C 89 18 134/82 98 Nasal Cannula 12/25/23 23:30 36.8 C 75 29 H 113/66 100 Nasal Cannula 12/25/23 23:27 78 18 100 Nasal Cannula 12/25/23 23:26 125/76 12/25/23 23:00 Nasal Cannula 12/25/23 22:16 36.8 C 78 18 103/69 98 Nasal Cannula 12/25/23 22:00 64 12/25/23 22:00 O2 Del Method O2 Flow Rate O2 Flow Rate 12/26/23 08:52 4 12/26/23 08:32 12/26/23 07:39 4 12/26/23 03:42 4 12/25/23 23:30 4 12/25/23 23:27 4 12/25/23 23:26 12/25/23 23:00 4 12/25/23 22:16 4 12/25/23 22:00 12/25/23 22:00 Nasal Cannula 4 Laboratory Results 12/26/23 06:17 12/26/23 06:17 (1) Acute congestive heart failure Heart failure type: unspecified Qualified Code(s): I50.9 - Heart failure, unspecified
[2023-12-26] MEDS: IRON SUCROSE 200 MG in 0.9 % SODIUM CHLORIDE 100 ML IV SCH (09:57)
[2023-12-26] MEDS: BUMETANIDE 4 MG in SYRINGE 0 ML IV SCH (15:05)
--- NOTE | 2023-12-26 23:03 | Hospitalist Progress Note ---
Date of Service December 26, 2023 Assessment & Plan (1) Acute congestive heart failure: Plan: Heart failure preserved ejection fraction. Acute on chronic diastolic heart failure. - CXR with pulm vascular congestion, elevated BNP- consistent with acute on chronic HFpEF - CTA shows no PE, consistent with pulmonary hypertension and pulmonary edema -Lower extremity Doppler without DVT - last TTE 10/04/2023 with EF= 55-60%, grade 1 diastolic dysfunction Lasix increased to 80 twice daily with additional dose of metolazone before the p.m. dose on 12/20/2023 - fluid restriction 1800ml/day Will try BiPAP as recommended by pulmonary medicine on the evening of 12/21/2023. home diuretic regimen- 12.5 spironolactone, 60mg torsemide; Patient's morbid obesity likely suggests her to be a risk factor for obstructive sleep apnea which could lead to cor pulmonale and her massive edemawill have a nocturnal oxygen study WIll continue to diuerese. Not improving much. Also difficult because patient is refusing Physical therapy and any sort of activity. Patient has been in bed during her hospital stay. This will lead to weakness and worsening morbidity and mortality. ON 12/24 Patient now on lasix TID COntinues to be net negative. Will continue to monitor. On 12/25 Patient now on bumex consulted nephro. appreciate input (2) Paroxysmal A-fib: Plan: - had been on Eliquis up until 10/31/23 when [facility] held due to concern for downtrending hemoglobin - currently in NSR - upon last d/c GI had recommend resuming Eliquis 11/26; but looking at documentation from [facility] does not look like it has been resumed- hemoglobin has been slowly downtrending again with most recent 7.3 on 12/12 -Patient on prevention dose Lovenox at this time for DVT prevention not treatment of atrial fibrillation (3) Anemia: Plan: - hemoglobin has been slowly downtrending since last d/c - At this point has had both Endoscopy and Colonoscopy without definitive cause for anemia; could consider capsule endoscopy as an outpatient - iron low normal but binding capacity is high and transferrin sat is low, B12 and folate are normal, will consider venofer infusion - continue oral iron supplementation Plan chronic hypertension stable-metoprolol chronic depression stable- lexapro added buspirone on the try to help with anxiety chronic GERD, on ppi chronic osteomyelitis right ankle, completing antibiotics 12/11 Code: DNR/DNI VTE Prophylaxis: SCD, defer chemical at admission due to acute anemia Admission and Anticipated Discharge Date Admission Date: December 18, 2023 Subjective Patient is resting comfortably. Patient reports no new symptoms. Review of Systems Review of Systems: All systems reviewed & are unremarkable except as noted in HPI & below Physical Exam Physical Exam: Patient has regular cardiac exam, lungs have diminished breath sounds at the bases consistent with her known pulmonary pleural effusions. She has massive lower extremity edema Results & Data Results & Data Vital Signs (Past 12 Hours) Vital Signs Temp Pulse Pulse Resp BP Pulse Ox O2 Del Method 12/26/23 19:12 36.6 C 78 18 123/76 99 Nasal Cannula 12/26/23 15:44 36.7 C 70 19 138/79 99 Nasal Cannula 12/26/23 14:59 63 12/26/23 11:34 36.6 C 70 20 116/66 99 Nasal Cannula O2 Flow Rate 12/26/23 19:12 4 12/26/23 15:44 4 12/26/23 14:59 12/26/23 11:34 4 PG Care Time/CCT Total # of Minutes Spent Total Time Spent with Patient: Total time spent is greater than 50% in coordination of care (as documented) at patient's floor/unit and/or counseling patient: Coding Level of Care Code 07401 SUB INP/OBS CARE 2/35MIN Diagnoses Acute congestive heart failure I50.9 Heart failure type: unspecified Paroxysmal A-fib I48.0 Anemia D64.9 (1) Acute congestive heart failure Heart failure type: unspecified Qualified Code(s): I50.9 - Heart failure, unspecified
[2023-12-27 07:40] LABS: BUN Creatinine Ratio 35.4 (10-20); Calcium 9.4 mg/dl (8.6-10.3); Creatinine Clr Calc Pharmacy 55.2 ml/min; Est GFR (African American) 62.9 ml/min; Est GFR (Non-African American) 54.3 ml/min; Potassium 3.8 mmol/L (3.5-5.1)
--- NOTE | 2023-12-27 12:10 | Nephrology Progress Note ---
Date of Service December 27, 2023 Assessment & Plan (1) Acute congestive heart failure: Plan: currently on bumex 4 mg IV tid >> she is despite this net even; ? if some missed I/O >increased bumex to 4 mg IV qid and added metolazone >keep tomlinson >> tightened FR to 1.2 L given diuresis needs >cont K supplements to bid 20 mEq given aggressive diuresis >daily bmp >>STRICT I/O -ensure routine breathing txs (2) CKD (chronic kidney disease) stage 3, GFR 30-59 ml/min: Plan: CKD 3A w/ baseline creatinine 1.2. at baseline -lasix as above -she needs daily BMP in hospital -caution w/ tricor in CKD, chris given her frequent JULIO >caution w/ lovenox given her frequent JULIO (3) Anemia: Plan: stable but significant. also w/ t sat 11% on admission, so iron deficient. retic count appropriately elevated >will give venofer 200 mg daily x 4 now for total of 1 gm after 100 mg on 12/24 -defer to primary service on further w/u Admission and Anticipated Discharge Date Admission Date: December 18, 2023 Subjective seen on midday rounds; still very dypsneic, tired Review of Systems 2 Review of Systems: All systems reviewed & are unremarkable except as noted in Subjective Physical Exam 2 Constitutional: well developed, well nourished, + physical limitations, + frail appearing and cooperative; no acute distress Eyes: EOM intact bilaterally ENMT: Ears: no external ear abnormality Nose: no external nose abnormality Mouth: + dry oral mucous membranes Neck: no nuchal rigidity Respiratory: + labored breathing, + cough and + prolo nged expiratory phase Auscultation: + diminished lung sounds and + wheezes (insp and exp) Cardiovascular: Rate/Rhythm: regular rate and regular rhythm Extremities: + edema Gastrointestinal (Abdomen): Inspection/Auscultation: normal bowel sounds P ercussion/Palpation: abdomen soft; abdomen nontender Musculoskeletal: Extremities: + abnormal strength Skin: no rashes, warm and dry Results & Data Vital Signs (Past 12 Hours) Vital Signs Temp Pulse Resp BP Pulse Ox O2 Del Method O2 Flow Rate 12/27/23 11:15 36.4 C L 83 16 123/71 90 Nasal Cannula 3 12/27/23 10:51 Nasal Cannula 12/27/23 09:45 80 18 92 Nasal Cannula 2.5 12/27/23 07:56 36.3 C L 74 16 117/71 100 Nasal Cannula 2.5 12/27/23 03:37 36.5 C 73 18 120/61 98 Nasal Cannula 2 Laboratory Results 12/26/23 06:17 12/27/23 06:24 (1) Acute congestive heart failure Heart failure type: unspecified Qualified Code(s): I50.9 - Heart failure, unspecified
[2023-12-27] MEDS: metOLazone 2.5 MG TABLET PO SCH (20:25)
[2023-12-27] MEDS: BUMETANIDE 4 MG in SYRINGE 0 ML IV SCH (21:42)
--- NOTE | 2023-12-27 23:01 | Hospitalist Progress Note ---
Date of Service December 27, 2023 Assessment & Plan (1) Acute congestive heart failure: Plan: Heart failure preserved ejection fraction. Acute on chronic diastolic heart failure. - CXR with pulm vascular congestion, elevated BNP- consistent with acute on chronic HFpEF - CTA shows no PE, consistent with pulmonary hypertension and pulmonary edema -Lower extremity Doppler without DVT - last TTE 10/04/2023 with EF= 55-60%, grade 1 diastolic dysfunction Lasix increased to 80 twice daily with additional dose of metolazone before the p.m. dose on 12/20/2023 - fluid restriction 1800ml/day Will try BiPAP as recommended by pulmonary medicine on the evening of 12/21/2023. home diuretic regimen- 12.5 spironolactone, 60mg torsemide; Patient's morbid obesity likely suggests her to be a risk factor for obstructive sleep apnea which could lead to cor pulmonale and her massive edemawill have a nocturnal oxygen study DUring this past 6 day stretch, patient was slowly improving but then was hitting a wall with her net fluid losses. COncerned she may need HD, nephrology was consulted. DIuretics were changed to Bumex. Now on 4 mg of IV bumex and metolazone. WIll continue to diuerese. On another note CRP is rising, perhaps has superimposed viral illness? (2) Paroxysmal A-fib: Plan: - had been on Eliquis up until 10/31/23 when [facility] held due to concern for downtrending hemoglobin - currently in NSR - upon last d/c GI had recommend resuming Eliquis 11/26; but looking at documentation from [facility] does not look like it has been resumed- hemoglobin has been slowly downtrending again with most recent 7.3 on 12/12 -Patient on prevention dose Lovenox at this time for DVT prevention not treatment of atrial fibrillation (3) Anemia: Plan: - hemoglobin has been slowly downtrending since last d/c - At this point has had both Endoscopy and Colonoscopy without definitive cause for anemia; could consider capsule endoscopy as an outpatient - iron low normal but binding capacity is high and transferrin sat is low, B12 and folate are normal, -venofer ordered by neprhology. Plan chronic hypertension stable-metoprolol chronic depression stable- lexapro added buspirone on the try to help with anxiety chronic GERD, on ppi chronic osteomyelitis right ankle, completing antibiotics 04/22 Code: DNR/DNI VTE Prophylaxis: SCD, defer chemical at admission due to acute anemia Admission and Anticipated Discharge Date Admission Date: December 18, 2023 Subjective Patient reports no significant improvement yet. Continues to be short of breath. Review of Systems Review of Systems: All systems reviewed & are unremarkable except as noted in HPI & below Physical Exam Physical Exam: Patient has regular cardiac exam, lungs have diminished breath sounds at the bases consistent with her known pulmonary pleural effusions. She has massive lower extremity edema Results & Data Results & Data Vital Signs (Past 12 Hours) Vital Signs Temp Pulse Pulse Resp BP BP Pulse Ox 12/27/23 19:31 36.6 C 89 20 125/71 99 12/27/23 17:46 81 12/27/23 15:07 36.5 C 80 15 139/78 98 12/27/23 14:10 79 20 92 12/27/23 13:47 68 12/27/23 11:15 36.4 C L 83 16 123/71 90 O2 Del Method O2 Flow Rate 12/27/23 19:31 Nasal Cannula 4 12/27/23 17:46 12/27/23 15:07 Nasal Cannula 5 12/27/23 14:10 Nasal Cannula 2.5 12/27/23 13:47 12/27/23 11:15 Nasal Cannula 3 PG Care Time/CCT Total # of Minutes Spent Total Time Spent with Patient: Total time spent is greater than 50% in coordination of care (as documented) at patient's floor/unit and/or counseling patient: Coding Level of Care Code 31244 SUB INP/OBS CARE 3/50MIN Diagnoses Acute congestive heart failure I50.9 Heart failure type: unspecified Paroxysmal A-fib I48.0 Anemia D64.9 (1) Acute congestive heart failure Heart failure type: unspecified Qualified Code(s): I50.9 - Heart failure, unspecified
[2023-12-28 07:31] LABS: Hematocrit (blood only) 24.9 % (37.0-47.0); Hemoglobin 7.4 g/dl (12.0-16.0); Mean Corpuscular Hemoglobin 26.1 pg (25.0-34.0); Mean Corpuscular Hgb Conc 29.7 g/dL (32.0-36.0); Mean Corpuscular Volume 87.7 fL (80.0-100.0); Mean Platelet Volume 10.6 fL (9.4-12.4); Platelet Count 245 K/uL (130-400); RDW Coefficient of Variation 18.9 % (11.5-14.5); RDW Standard Deviation 59.9 fL (36.4-46.3); Red Blood Count 2.84 M/uL (4.20-5.40); White Blood Count 3.07 K/ul (4.8-10.8)
[2023-12-28 08:09] LABS: BUN Creatinine Ratio 36.4 (10-20); Calcium 9.5 mg/dl (8.6-10.3); Creatinine Clr Calc Pharmacy 60.1 ml/min; Est GFR (African American) 69.9 ml/min; Est GFR (Non-African American) 60.3 ml/min; Potassium 3.8 mmol/L (3.5-5.1)
--- NOTE | 2023-12-28 09:06 | Hospitalist Progress Note ---
Date of Service December 28, 2023 Assessment & Plan (1) Acute congestive heart failure: Plan: Heart failure preserved ejection fraction. Acute on chronic diastolic heart failure. - CXR with pulm vascular congestion, elevated BNP- consistent with acute on chronic HFpEF - CTA shows no PE, consistent with pulmonary hypertension and pulmonary edema -Lower extremity Doppler without DVT - last TTE 10/04/2023 with EF= 55-60%, grade 1 diastolic dysfunction Bumex 4 mg iv qid and metolazone - fluid restriction 1800ml/day Will try BiPAP as recommended by pulmonary medicine on the evening of 12/21/2023. home diuretic regimen- 12.5 spironolactone, 60mg torsemide; Patient's morbid obesity likely suggests her to be a risk factor for obstructive sleep apnea which could lead to cor pulmonale and her massive edemawill have a nocturnal oxygen study Concerned she may need HD, nephrology was consulted. (2) Paroxysmal A-fib: Plan: - had been on Eliquis up until 10/31/23 when [facility] held due to concern for downtrending hemoglobin - currently in NSR - upon last d/c GI had recommend resuming Eliquis 11/26; but looking at documentation from [facility] does not look like it has been resumed- hemoglobin has been slowly downtrending again with most recent 7.3 on 12/12 -Patient on prevention dose Lovenox at this time for DVT prevention not treatment of atrial fibrillation (3) Anemia: Plan: - hemoglobin has been slowly downtrending since last d/c - At this point has had both Endoscopy and Colonoscopy without definitive cause for anemia; could consider capsule endoscopy as an outpatient - iron low normal given 1 gm of venofer, B12 and folate are normal, Plan chronic hypertension stable-metoprolol chronic depression stable- lexapro added buspirone on the try to help with anxiety chronic GERD, on ppi chronic osteomyelitis right ankle, completing antibiotics 12/11 Code: DNR/DNI VTE Prophylaxis: SCD, defer chemical at admission due to acute anemia Admission and Anticipated Discharge Date Admission Date: December 18, 2023 Subjective pt is with a stalling of her weight and fluid loss, is on high dose of bumex, and am dose of metolazone will ask nephrology opinion if should move to [facility] or have discussion of dialysis Physical Exam Physical Exam: pt states she feels weak and maybe some shortness of breath. diminished breath sounds at bases cardiac is distant and regular Results & Data Results & Data Vital Signs (Past 12 Hours) Vital Signs Temp Pulse Pulse Resp BP BP Pulse Ox 12/28/23 07:36 97.5 F L 98 H 16 105/64 92 12/28/23 04:55 84 18 98 12/28/23 03:24 97.5 F L 72 20 101/50 L 97 12/28/23 02:20 12/28/23 01:03 12/27/23 23:18 97.7 F 74 20 111/67 98 12/27/23 22:00 69 O2 Del Method O2 Flow Rate 12/28/23 07:36 Nasal Cannula 3 12/28/23 04:55 Nasal Cannula 3 12/28/23 03:24 Nasal Cannula 2 12/28/23 02:20 Nasal Cannula 4 12/28/23 01:03 2 12/27/23 23:18 Nasal Cannula 4 12/27/23 22:00 Laboratory Results Reviewed CBC reviewed chemistry PG Care Time/CCT Total # of Minutes Spent Total Time Spent with Patient: Total time spent is greater than 50% in coordination of care (as documented) at patient's floor/unit and/or counseling patient: Coding Level of Care Code 51829 SUB INP/OBS CARE 3/50MIN Diagnoses Acute congestive heart failure I50.9 Heart failure type: unspecified Paroxysmal A-fib I48.0 Anemia D64.9 (1) Acute congestive heart failure Heart failure type: unspecified Qualified Code(s): I50.9 - Heart failure, unspecified
[2023-12-28 10:38] LABS: C Reactive Protein 1.57 mg/dl (0-0.5)
--- NOTE | 2023-12-28 18:11 | Nephrology Progress Note ---
Date of Service December 28, 2023 Assessment & Plan (1) Acute congestive heart failure: Plan: currently on bumex 4 mg IV tid >> she is despite this net even; ? if some missed I/O >increased bumex to 4 mg IV qid and added metolazone -add spironolactone today 25 mg >keep tomlinson >> tightened FR to 1.2 L given diuresis needs >cont K supplements to bid 20 mEq given aggressive diuresis >daily bmp >>STRICT I/O -check phos, mag once weekly ->>check protein/creat ratio given new dipstick proteinuria, refractory edema -ensure routine breathing txs; consider pulmonary consult (2) CKD (chronic kidney disease) stage 3, GFR 30-59 ml/min: Plan: CKD 3A w/ baseline creatinine 1.2. at baseline -lasix as above -she needs daily BMP in hospital -caution w/ tricor in CKD, chris given her frequent JULIO >caution w/ lovenox given her frequent JULIO (3) Anemia: Plan: stable but significant. also w/ t sat 11% on admission, so iron deficient. retic count appropriately elevated >will give venofer 200 mg daily x 4 now for total of 1 gm after 100 mg on 12/24 -defer to primary service on further w/u Admission and Anticipated Discharge Date Admission Date: December 18, 2023 Subjective seen on late AM rounds today. c/o ongoing dyspnea > minimal improvement with diuretics Review of Systems 2 Review of Systems: All systems reviewed & are unremarkable except as noted in Subjective Physical Exam 2 Constitutional: well developed, well nourished, + physical limitations, + frail appearing and cooperative; no acute distress Eyes: EOM intact bilaterally ENMT: Ears: no external ear abnormality Nose: no external nose abnormality Mouth: + dry oral mucous membranes Neck: no nuchal rigidity Respiratory: + labored breathing, + cough and + prolo nged expiratory phase Auscultation: + diminished lung sounds and + wheezes (insp and exp) Cardiovascular: Rate/Rhythm: regular rate and regular rhythm Extremities: + edema Gastrointestinal (Abdomen): Inspection/Auscultation: normal bowel sounds P ercussion/Palpation: abdomen soft; abdomen nontender Musculoskeletal: Extremities: + abnormal strength Skin: no rashes, warm and dry Results & Data Vital Signs (Past 12 Hours) Vital Signs Temp Pulse Pulse Resp BP Pulse Ox O2 Del Method 12/28/23 16:57 67 12/28/23 15:23 36.4 C L 80 16 134/77 97 Nasal Cannula 12/28/23 11:40 36.6 C 91 H 16 132/71 96 Nasal Cannula 12/28/23 09:44 Nasal Cannula 12/28/23 09:43 67 12/28/23 07:36 36.4 C L 98 H 16 105/64 92 Nasal Cannula O2 Flow Rate 12/28/23 16:57 12/28/23 15:23 3 12/28/23 11:40 3 12/28/23 09:44 2 12/28/23 09:43 12/28/23 07:36 3 Laboratory Results 12/28/23 06:54 12/28/23 06:54 (1) Acute congestive heart failure Heart failure type: unspecified Qualified Code(s): I50.9 - Heart failure, unspecified
[2023-12-28] MEDS: SPIRONOLACTONE 25 MG TAB PO SCH (19:46)
[2023-12-29 06:02] LABS: Creatinine Urine Random 31.3 mg/dl; Protein Creatinine Ratio Urine 3.4 (0-0.2)
--- NOTE | 2023-12-29 07:23 | Hospitalist Progress Note ---
Date of Service December 29, 2023 Assessment & Plan (1) Acute congestive heart failure: Plan: Heart failure preserved ejection fraction. Acute on chronic diastolic heart failure., Some fluid overload is also influenced by what appears to be nephrotic range proteinuria - CXR with pulm vascular congestion, elevated BNP- consistent with acute on chronic HFpEF - CTA shows no PE, consistent with pulmonary hypertension and pulmonary edema -Lower extremity Doppler without DVT - last TTE 10/04/2023 with EF= 55-60%, grade 1 diastolic dysfunction Bumex 4 mg iv qid, metolazone bid and nephrology added spironolactone (home diuretic regimen-12.5 spironolactone, 60mg torsemide;) - fluid restriction tightened to 1200ml/day Patient's morbid obesity likely suggests her to be a risk factor for obstructive sleep apnea which could lead to cor pulmonale and her massive edemawill have a nocturnal oxygen study Nephrology patient is on hemodialysis candidate. Will enter no palliative care good discussion due to her lack of response to medical treatment and her voicing me that she may be tired of being an ill patient (2) Paroxysmal A-fib: Plan: - had been on Eliquis up until 10/31/23 when [facility] held due to concern for downtrending hemoglobin - currently in NSR - upon last d/c GI had recommend resuming Eliquis 11/26; but looking at documentation from [facility] does not look like it has been resumed- hemoglobin has been slowly downtrending again with most recent 7.3 on 12/12 -Patient on prevention dose Lovenox at this time for DVT prevention not treatment of atrial fibrillation (3) Anemia: Plan: - hemoglobin has been slowly downtrending since last d/c, remained stable in the mid 7 range, no improvement despite iron - At this point has had both Endoscopy and Colonoscopy without definitive cause for anemia; could consider capsule endoscopy as an outpatient - iron low normal given 1 gm of venofer, B12 and folate are normal, Plan chronic hypertension stable-metoprolol chronic depression stable- lexapro added buspirone on the try to help with anxiety chronic GERD, on ppi chronic osteomyelitis right ankle, completing antibiotics 12/11 Code: DNR/DNI VTE Prophylaxis: SCD, defer chemical at admission due to acute anemia Admission and Anticipated Discharge Date Admission Date: December 18, 2023 Subjective Patient's biggest complaint continues to be subjective dyspnea. She freely admits that she has not been amatory for some time. He cannot herself assess the edema in her legs Discussion with case with nephrology this patient may have nephrotic range proteinuria she has been refractory to escalating doses of diuretics however she is not a dialysis candidate given her preservation of her acid-base and electrolyte balance. On multiple discussions with this patient as she is a fairly miserable state given her immobility, morbid obesity, and significant edema she feels she may be becoming frustrated with her medical care discussion with palliative care consult seems to direct to return to SNF if improved but enter in to hospice care there Physical Exam Physical Exam: Patient is awake alert oriented x 3 She has coarse breath sounds bilaterally with some coarse rhonchi at the base difficult to listen to due to her body habitus Card exam is regular with a systolic murmur at the upper sternal border Her lungs have 2+ edema bilaterally which is significant in her arms have 1+ edema bilaterally Results & Data Results & Data Vital Signs (Past 12 Hours) Vital Signs Temp Pulse Pulse Resp BP Pulse Ox O2 Del Method 12/29/23 04:00 98.2 F 80 18 114/68 95 Nasal Cannula 12/29/23 01:18 Nasal Cannula 12/29/23 01:17 12/28/23 23:00 97.7 F 77 18 130/73 96 Nasal Cannula 12/28/23 22:32 72 O2 Del Method O2 Flow Rate 12/29/23 04:00 3 12/29/23 01:18 3 12/29/23 01:17 Nasal Cannula 12/28/23 23:00 3 12/28/23 22:32 Laboratory Results Reviewed electrolytes reviewed 24-hour protein being elevated 105 PG Care Time/CCT Total # of Minutes Spent Total Time Spent with Patient: Total time spent is greater than 50% in coordination of care (as documented) at patient's floor/unit and/or counseling patient: Coding Level of Care Code 19718 SUB INP/OBS CARE 2/35MIN Diagnoses Acute congestive heart failure I50.9 Heart failure type: unspecified Paroxysmal A-fib I48.0 Anemia D64.9 (1) Acute congestive heart failure Heart failure type: unspecified Qualified Code(s): I50.9 - Heart failure, unspecified
[2023-12-29 07:34] LABS: Anion Gap 4 (3-11); BUN Creatinine Ratio 38.3 (10-20); Blood Urea Nitrogen 31 mg/dl (6-23); Calcium 9.5 mg/dl (8.6-10.3); Carbon Dioxide 40 mmol/L (21-32); Chloride 102 mmol/L (98-107); Creatinine Clr Calc Pharmacy 64.9 ml/min; Est GFR (African American) 77.3 ml/min; Est GFR (Non-African American) 66.7 ml/min; Glucose 99 mg/dl (70-99(Fasting)); Sodium 146 mmol/L (136-145)
--- NOTE | 2023-12-29 11:09 | Nephrology Progress Note ---
Date of Service December 29, 2023 Assessment & Plan (1) Acute congestive heart failure: Plan: currently on bumex 4 mg IV qid w/ metolazone 2.5 mg daily, spironolactone 25 mg >> she had been despite this net even; ? if some missed I/O b/c markedly more negative today >increased bumex to 4 mg IV qid and added metolazone 2.5 daily on 12/26 >> will increase metolazone on 12/28 to 5 mg bid timed 30 min before bumex -added spironolactone 12/27 25 mg whcih should continue >keep tomlinson >> tightened FR to 1.2 L given diuresis needs >will hold K supplements for now >daily bmp >>STRICT I/O -check phos, mag once weekly ->>spot prot/creat ratio is 3.4 gm notably >> will check 24 hr urine and send off serologies; ddx = blood dyscrasias, FSGS for example secondary to obesity; less likely membranous nephropathy or minimal change. 24 hr urine for prot/creat; bence díaz, spep, kappa lambda FLC, PLA2R (2) CKD (chronic kidney disease) stage 3, GFR 30-59 ml/min: Plan: CKD 3A w/ baseline creatinine 1.2. at baseline -lasix, metolazone, spironolactone as above -she needs daily BMP in hospital -caution w/ tricor in CKD, chris given her frequent JULIO >caution w/ lovenox given her frequent JULIO (3) Anemia: Plan: stable but significant. also w/ t sat 11% on admission, so iron deficient. retic count appropriately elevated >12/28 is last day of venofer load >could consider MERLENE -defer to primary service on further w/u Admission and Anticipated Discharge Date Admission Date: December 18, 2023 Subjective more negative yesterday than prior in terms of fluid; ? if using bipap; c/o pain diffusely in her legs chris and still sob Review of Systems 2 Review of Systems: All systems reviewed & are unremarkable except as noted in Subjective Physical Exam 2 Constitutional: well developed, well nourished, + physical limitations, + frail appearing and cooperative; no acute distress Eyes: EOM intact bilaterally ENMT: Ears: no external ear abnormality Nose: no external nose abnormality Mouth: + dry oral mucous membranes Neck: no nuchal rigidity Respiratory: + labored breathing, + cough and + prolo nged expiratory phase Auscultation: + diminished lung sounds and + wheezes (insp and exp) Cardiovascular: Rate/Rhythm: regular rate and regular rhythm Extremities: + edema Gastrointestinal (Abdomen): Inspection/Auscultation: normal bowel sounds P ercussion/Palpation: abdomen soft; abdomen nontender Musculoskeletal: Extremities: + abnormal strength Skin: no rashes, warm and dry Results & Data Vital Signs (Past 12 Hours) Vital Signs Temp Pulse Pulse Resp BP Pulse Ox O2 Del Method 12/29/23 09:08 70 12/29/23 09:05 Nasal Cannula 12/29/23 08:13 36.8 C 80 17 126/71 98 Nasal Cannula 12/29/23 04:00 36.8 C 80 18 114/68 95 Nasal Cannula 12/29/23 01:18 Nasal Cannula 12/29/23 01:17 12/28/23 23:00 36.5 C 77 18 130/73 96 Nasal Cannula O2 Del Method O2 Flow Rate 12/29/23 09:08 12/29/23 09:05 3 12/29/23 08:13 2 12/29/23 04:00 3 12/29/23 01:18 3 12/29/23 01:17 Nasal Cannula 12/28/23 23:00 3 Laboratory Results 12/28/23 06:54 12/29/23 09:29 (1) Acute congestive heart failure Heart failure type: unspecified Qualified Code(s): I50.9 - Heart failure, unspecified
[2023-12-29] MEDS: POTASSIUM CHLORIDE CRTAB 20 MEQ TABCR PO SCH (13:25)
[2023-12-29] MEDS: metOLazone 2.5 MG TABLET PO SCH (17:14)
[2023-12-30 07:29] LABS: BUN Creatinine Ratio 37.2 (10-20); Calcium 10.3 mg/dl (8.6-10.3); Est GFR (African American) 80.9 ml/min; Est GFR (Non-African American) 69.8 ml/min; Potassium 3.6 mmol/L (3.5-5.1)
--- NOTE | 2023-12-30 09:03 | Palliative Care Consultation ---
Date of Consultation December 30, 2023 Assessment & Plan (1) Dyspnea and respiratory abnormalities: (2) Weakness generalized: (3) Advanced care planning/counseling discussion: A 30min face to face ACP meeting was held at bedside together with Dr Patel and Ms. Clement; we had a lengthy discussion about her heart failure, lung issues, fluid mgt, debility etc. She said she knows she isn't getting better and things are improving with medicines the way they used to and she does not want to keep coming back and forth to hospital. We discussed option of returning to [facility] with comfort / QOL focus, no return to hospital and continue mgt as it can be done at [facility] and when she declines further, assure comfort/relieve suffering. She was open to hospice at [facility] if she qualifies. She is surprisingly tala. 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 She wonders if these exposures contributed to her illness. 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 (4) Palliative care by specialist: Met with pt/family. Provided overview of Palliative Medicine, a subspecialty that provides specialized medical care for people living with a serious illness by offering a focus on quality of life through reduction of symptom burden/more control over their illness, for both the patient and family. We care for patients of any age/advancing stage of a serious illness and can be provided along with curative treatment. We are not hospice, which is a visiting nurse service that focuses on care delivered at the very end of life. Plan OP [facility] clinic f/u in 4-6 weeks from pr. ACP as noted above. Thank you for allowing us to participate in the ongoing care of this patient. Please don't hesitate to call or page with any additional concerns. Dr. Chelsey Weiss DNP Director, Palliative Care History of Present Illness Reason for Consultation: "goals of care, pt is declining" Attending Physician: Truman Winter MD History of Present Illness 83yo female admitted 12/18/23 with recurrent SOB attributed t her acute on chronic HF + fluid volume overload. She is a LTC resident at [facility] PMH: R tib/fib s/p ORIF with osteomyelitis (completed Cefepime and on chronic Ciprofloxacin and Amoxicillin per Orthopedics), Afib (On Eliquis), prediabetes, CKDIII, hypertension, chronic right CHF, mitral vlave prolapse, HLD, chronic lymphedema, RADHA, L4 compression fracture with severe spinal stenosis, and recent admission to [facility] for metabolic encephalopathy from RLL pneumonia pt has not been able to make decision re goals and desired plan of care She had recent admissions: 11/20 - 11/25/2310/02 - 10/15/23 08/16/23 - 08/30/23 07/15/23 - 07/18/23 s/p fall with resulting right tib-fib fx Allergies Allergy/AdvReac Type Severity Reaction Status Date / Time demeclocycline Allergy Unknown ON CENTRE Verified 12/18/23 22:52 CARE MED LIST sulfamethoxazole Allergy Unknown ON CENTRE Verified 12/18/23 22:52 CARE MED LIST trimethoprim Allergy Unknown ON CENTRE Verified 12/18/23 22:52 CARE MED LIST ropinirole AdvReac Intermediate fluid Verified 12/18/23 22:52 retention pregabalin [From Lyrica] AdvReac Unknown ON CENTRE Verified 12/18/23 22:52 CARE MED LIST Home Medications Medication Instructions Recorded Confirmed Type omega 4-ztm-vvs-fish oil 1,000 mg 1 cap PO QAM 05/05/18 12/18/23 History (120 mg-180 mg) capsule (Fish Oil) raloxifene 60 mg tablet 60 mg PO QAM osteoporosis 05/05/18 12/18/23 History fenofibrate 160 mg tablet 160 mg PO DAILY 12/30/19 12/18/23 History dextromethorphan-guaifenesin 10 10 ml PO Q4H PRN Cough 03/16/22 12/18/23 History mg-100 mg/5 mL oral liquid (Tussin DM) lorazepam 0.5 mg tablet 0.5 mg PO HS 03/16/22 12/18/23 History vit C 250 mg-vit E 90 mg-zinc 40 1 tab PO BIDM 03/16/22 12/18/23 History mg-copper 1 ic-fwzpgb-hxydfn capsule (PreserVision AREDS-2) atropine 1 % eye drops 1 drp OPR Q8H PRN Dry Eye(S) 07/12/23 12/18/23 History escitalopram oxalate 10 mg tablet 10 mg PO QAM 07/12/23 12/18/23 History ferrous sulfate 142 mg (45 mg 142 mg PO QAM 07/12/23 12/18/23 History iron) tablet,extended release gabapentin 100 mg capsule 100 mg PO BIDM 07/12/23 12/18/23 History guaifenesin 600 mg tablet, 600 mg PO Q12H PRN Cough 07/12/23 12/18/23 History extended release 12 hr (Mucus Relief ER) L.acidop,casei,lactis,rham-B.lact,karen 2 cap PO QAM 10/02/23 12/18/23 History 625 mg (10 billion cell) capsule (Advanced Probiotic) acetaminophen 325 mg tablet 650 mg PO Q6H PRN fever/pain 10/02/23 12/18/23 History (Tylenol) loperamide 2 mg capsule 2 mg PO Q3H PRN Diarrhea 10/02/23 12/18/23 History pantoprazole 40 mg tablet,delayed 40 mg PO BIDM 11/02/23 12/18/23 History release potassium chloride 20 mEq 20 meq PO QAM 11/02/23 12/18/23 History tablet,extended release(part/cryst) spironolactone 25 mg tablet 12.5 mg PO QAM 11/02/23 12/18/23 History torsemide 60 mg tablet 60 mg PO QAM 11/02/23 12/18/23 History Saccharomyces boulardii 250 mg 250 mg PO BID 11/21/23 12/18/23 History capsule (Florastor) ondansetron HCl 4 mg tablet 4 mg PO Q6H PRN NAUSEA/VOMITING 11/21/23 12/18/23 History oxymetazoline 0.05 % nasal spray 3 spray intranasal DIRECTED PRN 11/21/23 12/18/23 History EPISTAXIS metoprolol succinate 25 mg 12.5 mg PO BIDM 12/18/23 12/18/23 History tablet,extended release 24 hr Patient History Medical History (Updated 12/30/23 @ 20:08 by Chelsey Weiss DNP) Palliative care by specialist Advanced care planning/counseling discussion Weakness generalized Dyspnea and respiratory abnormalities CKD (chronic kidney disease) stage 3, GFR 30-59 ml/min Fall Contusion of foot, left Anemia Acute lower GI bleeding Acute pain of left lower extremity Unspecified atrial fibrillation Metabolic encephalopathy History of pneumonia Difficulty in walking, not elsewhere classified Other fracture of right lower leg, subsequent encounter for closed fracture with routine healing Unspecified open wound, right ankle, subsequent encounter Proteus (mirabilis) (morganii) as the cause of diseases classified elsewhere Laceration without foreign body of left ear, subsequent encounter Cognitive communication deficit Dysphagia Wedge compression fracture of fourth lumbar vertebra with routine healing Stress fracture, pelvis, subsequent encounter for fracture with routine healing Weakness Pain in right leg Personal history of COVID-19 History of falling Other abnormalities of gait and mobility Pain in right hip Spinal stenosis, lumbosacral region Muscle weakness (generalized) Hyperlipidemia Hypoxemia Hypo-osmolality and hyponatremia Nocturnal hypoxia Right-sided congestive heart failure Sacral insufficiency fracture Cor pulmonale (chronic) Lumbar stenosis with neurogenic claudication Chronic GERD without esophagitis Right heart failure Dependence on nocturnal oxygen therapy RADHA (obstructive sleep apnea) Dyslipidemia Morbid obesity with BMI of 40.0-44.9, adult Mitral valve prolapse Osteoporosis Chronic acquired lymphedema HTN (hypertension) Chronic back pain Surgical History Hx of cholecystectomy Status post lumbar spine surgery for decompression of spinal cord 2018 Dr. Wan Status post kyphoplasty L3, L4, L5 2018 Dr. Wan Status post tonsillectomy Status post cataract surgery Status post appendectomy Family History Father Family history of colon cancer Brother Family history of prostate cancer Brother Family history of coronary artery disease Sister Family history of coronary artery disease Brother Family history of diabetes mellitus Social History Smoking Status: Never smoker Second Hand Exposure: No; Do You Dip or Chew Tobacco: No; Hx Alcohol Use: No Hx Substance Use: No Preferred Language: Guinean Communication Ability: Effective Communication Ability Comment: confused Web Mobile Designer Required: No Beliefs That Will Affect Care: Protestant marital status: Single Current Living Situation: Personal Care Facility Current Living Situation Comment: skilled care facility Other Information That Helps Us Care for You: No Feels Safe at Home: Yes Safety Concerns: Feels Safe At This Time Assistive Devices: Walker and Wheelchair Review of Systems Review of Systems: All systems reviewed & are unremarkable except as noted in Subjective Physical Exam Physical Exam: Elderly female, tired appearing, +discomfort Bitemp wasting PERRLA, EOMIs Neck supple, no stridor Chest diminished, crackles bilat S1,loud S2, +murmur Abd soft, +pannus, BS+ Weeping edema BLE +3-4, mildly cyanotic nailbeds, pale skin, cool to touch with venous insuff changes Ecchymoses BUE, mild weeping edema LUE AAOx3 Generalized weakness Results & Data Vital Signs (Past 12 Hours) Vital Signs Temp Pulse Pulse Resp BP BP Pulse Ox 12/30/23 07:36 36.5 C 68 18 118/72 97 12/30/23 02:14 63 12/30/23 01:51 12/29/23 22:44 36.7 C 87 18 118/63 94 O2 Del Method O2 Flow Rate 12/30/23 07:36 Nasal Cannula 3 12/30/23 02:14 12/30/23 01:51 Nasal Cannula 3 12/29/23 22:44 Nasal Cannula 3 PG Care Time/CCT Total # of Minutes Spent Total Time Spent with Patient: Total time spent is greater than 50% in coordination of care (as documented) at patient's floor/unit and/or counseling patient: I spent 90 minutes overall addressing this case: 15 min in medical data review/discussion with referring provider(s) and/or preparation for the visit 20 min in direct interaction with the patient/exam 30 min in Advance Care Planning/Goals of Care discussions as detailed above in note (must be >16min) 15 min in subsequent review and synthesis of assessment and plan 10 min communicating with other providers regarding the patient's case: nursing, primary team Advanced Care Planning 47696 Advanced Care Planning 30 [place] [address] IN/OBS CONSULT LVL 5,80M Patient Type New History Comprehensive Exam Comprehensive Medical Decision Making High Complexity Diagnoses Dyspnea and respiratory abnormalities R06.00; R06.89 Weakness generalized R53.1 Advanced care planning/counseling discussion Z71.89 Palliative care by specialist Z51.5 Additional Codes Advanced Care Planning - 40457 Advanced Care Planning 30 Min: 66250 Advanced Care Planning 30 Min ([id number])
--- NOTE | 2023-12-30 17:53 | Nephrology Progress Note ---
Date of Service December 30, 2023 Assessment & Plan (1) Acute congestive heart failure: Plan: diuresing much better 12/28-12/29 currently on bumex 4 mg IV qid w/ metolazone 5 mg bid, spironolactone 25 mg >> initially stuck net even but last 48 hrs she is negative 4.8L mild hypernatremia emerging >liberalized FR to 1.8L >lowered bumex to 4 mg tid and metolazone to 5 mg daily; cont current spironolactone -resumed K 20 mEq bid >daily bmp >>STRICT I/O -check phos, mag once weekly ->>spot prot/creat ratio is 3.4 gm notably >> will check 24 hr urine and send off serologies; ddx = blood dyscrasias, FSGS for example secondary to obesity; less likely membranous nephropathy or minimal change. 24 hr urine for prot/creat; bence díaz, spep, kappa lambda FLC, PLA2R (2) CKD (chronic kidney disease) stage 3, GFR 30-59 ml/min: Plan: CKD 3A w/ baseline creatinine 1.2. better than baseline -bumex, metolazone, spironolactone as above -she needs daily BMP in hospital -caution w/ tricor in CKD, chris given her frequent JULIO >caution w/ lovenox given her frequent JULIO (3) Anemia: Plan: stable but significant. also w/ t sat 11% on admission, so iron deficient. retic count appropriately elevated >12/28 is last day of venofer load 1 gm >will start MERLENE 79254 units weekly on 12/29 -defer to primary service on further w/u Admission and Anticipated Discharge Date Admission Date: December 18, 2023 Subjective tells me her breathing is worse and that she has pain. struggles to find words at times > tells me pain is in her lungs. Review of Systems 2 Review of Systems: All systems reviewed & are unremarkable except as noted in Subjective Physical Exam 2 Constitutional: well developed, well nourished, + physical limitations, + frail appearing and cooperative; no acute distress Eyes: EOM intact bilaterally ENMT: Ears: no external ear abnormality Nose: no external nose abnormality Mouth: + dry oral mucous membranes Neck: no nuchal rigidity Respiratory: + labored breathing and + prolonged expi ratory phase A uscultation: + diminished lung sounds and + wheezes (insp and exp but fewer) Cardiovascular: Rate/Rhythm: regular rate and regular rhythm Extremities: + edema Gastrointestinal (Abdomen): Inspection/Auscultation: normal bowel sounds P ercussion/Palpation: abdomen soft; abdomen nontender Musculoskeletal: Extremities: + abnormal strength Skin: no rashes, warm and dry Results & Data Vital Signs (Past 12 Hours) Vital Signs Temp Pulse Pulse Resp BP Pulse Ox O2 Del Method 12/30/23 16:37 36.5 C 104 H 16 141/84 H 93 Nasal Cannula 12/30/23 11:45 36.5 C 105 H 18 148/86 H 93 Nasal Cannula 12/30/23 11:08 Nasal Cannula 12/30/23 09:12 65 12/30/23 07:36 36.5 C 68 18 118/72 97 Nasal Cannula O2 Flow Rate 12/30/23 16:37 3 12/30/23 11:45 6 12/30/23 11:08 3 12/30/23 09:12 12/30/23 07:36 3 Laboratory Results 12/28/23 06:54 12/30/23 06:41 (1) Acute congestive heart failure Heart failure type: unspecified Qualified Code(s): I50.9 - Heart failure, unspecified
[2023-12-30] MEDS: EPOETIN ALFA 10,000 UNITS/ML VIAL SQ SCH (20:22)
[2023-12-30] MEDS: POTASSIUM CHLORIDE CRTAB 20 MEQ TABCR PO SCH (20:23)
[2023-12-30] MEDS: BUMETANIDE 4 MG in SYRINGE 0 ML IV SCH (20:23)
--- NOTE | 2023-12-31 08:15 | Hospitalist Progress Note ---
Date of Service December 31, 2023 Assessment & Plan (1) Acute congestive heart failure: Plan: Heart failure preserved ejection fraction. Acute on chronic diastolic heart failure., massive fluid overload is also influenced by what appears to be nephrotic range proteinuria - CXR with pulm vascular congestion, elevated BNP- consistent with acute on chronic HFpEF - CTA shows no PE, consistent with pulmonary hypertension and pulmonary edema -Lower extremity Doppler without DVT - last TTE 10/04/2023 with EF= 55-60%, grade 1 diastolic dysfunction Sep 2023 pt did have dry weight of 225 lbs now 285, but having some diuresis last few days, Bumex 4 mg iv tid, metolazone bid and nephrology added spironolactone (home diuretic regimen-12.5 spironolactone, 60mg torsemide;) - fluid restriction tightened to 1200ml/day Patient's morbid obesity likely suggests her to be a risk factor for obstructive sleep apnea which could lead to cor pulmonale and her massive edemawill have a nocturnal oxygen study Nephrology patient is on hemodialysis candidate. Will enter no palliative care good discussion due to her lack of response to medical treatment and her voicing me that she may be tired of being an ill patient (2) Paroxysmal A-fib: Plan: - had been on Eliquis up until 10/31/23 when [facility] held due to concern for downtrending hemoglobin - currently in NSR - upon last d/c GI had recommend resuming Eliquis 11/26; but looking at documentation from [facility] does not look like it has been resumed- hemoglobin has been slowly downtrending again with most recent 7.3 on 12/12 -Patient on prevention dose Lovenox at this time for DVT prevention not treatment of atrial fibrillation (3) Anemia: Plan: - hemoglobin has been slowly downtrending since last d/c, remained stable in the mid 7 range, no improvement despite iron - At this point has had both Endoscopy and Colonoscopy without definitive cause for anemia; could consider capsule endoscopy as an outpatient - iron low normal given 1 gm of venofer, B12 and folate are normal, Plan chronic hypertension stable-metoprolol chronic depression stable- lexapro added buspirone on the try to help with anxiety chronic GERD, on ppi chronic osteomyelitis right ankle, completing antibiotics 12/11 Code: DNR/DNI VTE Prophylaxis: SCD, defer chemical at admission due to acute anemia Admission and Anticipated Discharge Date Admission Date: December 18, 2023 Results & Data Results & Data Vital Signs (Past 12 Hours) Vital Signs Temp Pulse Pulse Resp BP Pulse Ox O2 Del Method 12/31/23 07:42 97.5 F L 80 18 116/71 100 Nasal Cannula 12/31/23 04:34 97.9 F 72 18 125/80 99 Nasal Cannula 12/31/23 03:34 66 12/30/23 23:36 98.1 F 73 18 136/81 98 Nasal Cannula 12/30/23 21:23 Nasal Cannula O2 Flow Rate 12/31/23 07:42 6 12/31/23 04:34 6 12/31/23 03:34 12/30/23 23:36 3 12/30/23 21:23 3 PG Care Time/CCT Total # of Minutes Spent Total Time Spent with Patient: Total time spent is greater than 50% in coordination of care (as documented) at patient's floor/unit and/or counseling patient: Coding Diagnoses Acute congestive heart failure I50.9 Heart failure type: unspecified Paroxysmal A-fib I48.0 Anemia D64.9 (1) Acute congestive heart failure Heart failure type: unspecified Qualified Code(s): I50.9 - Heart failure, unspecified
[2023-12-31] MEDS: PANTOprazole 40 MG TAB PO SCH (08:58)
[2023-12-31] MEDS: metOLazone 2.5 MG TABLET PO SCH (12:53)
--- NOTE | 2023-12-31 13:01 | Discharge Summary ---
Discharge Summary Date of Service December 31, 2023 Notes For Next Care Provider Patient presented with massive volume overload felt to be secondary to nephrotic range proteinuria. Exact pathophysiology of renal dysfunction has not been ascertained there is no renal biopsy was pursued. Patient eventually diuresed with high doses of Bumex metolazone and spironolactone. She however remained 60 pounds over her baseline from September. Palliative care consult was obtained during the hospital stay. She is open to consider hospice when she returns to SNF if she qualifies. According to the outcomes specialist she is surprisingly tala about her goals and wishes to focus on quality of life to reduction in symptom burden more control over her symptoms of her illness. She was discharged on the doses of diuretic she was on towards the end of her hospital stay at this time she is not appearing to experience any renal distress this was Bumex 4 mg 3 times a day, metolazone before the 130 afternoon dose of Bumex and spironolactone 25. Creatinine at time of discharge was 0.78 BUN was 29 Admission HPI Per Admitting Provider 83 year old female with a past medical history of HFpEF, paroxysmal afib, anemia, HTN, HLD, RADHA GERD presenting with increased dyspnea. Notes increased shortness of breath and LE edema over the past couple of days. Currently at [facility]. Baseline oxygen requirement of 2L. Denies recent dietary changes. States that [facility] manages her medications, so she does not know what she takes daily. Denies chest pain, cough, congestion, nausea/vomiting. Recently admitted with concern for acute GI bleed and was d/c on 11/24. Colonoscopy that admission with non-bleeding internal hemorrhoids and 2 sessile polyps. ED course significant for: CXR with pulmonary vascularly congestion and pleural effusion per my read. EKG with NSR, first degree AV block. Elevated BNP= 228. Trop= 13.9. S/p 40 IV Lasix Principal Dx & Hospital Course #1 = Principal Diagnosis (1) Acute congestive heart failure: Heart failure preserved ejection fraction. Acute on chronic diastolic heart failure., massive fluid overload is also influenced by what appears to be nephrotic range proteinuria - CXR with pulm vascular congestion, elevated BNP- consistent with acute on chronic HFpEF - CTA shows no PE, consistent with pulmonary hypertension and pulmonary edema -Lower extremity Doppler without DVT - last TTE 10/04/2023 with EF= 55-60%, grade 1 diastolic dysfunction Sep 2023 pt did have dry weight of 225 lbs now 285, but having some diuresis last few days, Bumex 4 mg iv tid, metolazone daily and nephrology added spironolactone 25 mg Patient's morbid obesity likely suggests her to be a risk factor for obstructive sleep apnea which could lead to cor pulmonale and her massive edemawill have a nocturnal oxygen study Nephrology patient is on hemodialysis candidate. Will enter no palliative care good discussion due to her lack of response to medical treatment and her voicing me that she may be tired of being an ill patient (2) Paroxysmal A-fib: - had been on Eliquis up until 10/31/23 when [facility] held due to concern for downtrending hemoglobin - currently in NSR - upon last d/c GI had recommend resuming Eliquis 11/26; but looking at documentation from [facility] does not look like it has been resumed- hemoglobin has been slowly downtrending again with most recent 7.3 on 12/12 -Did not resume Eliquis at this time due to her anemia anemia likely may be from show renal disease patient was given EPO. (3) Anemia: - hemoglobin has been slowly downtrending since last d/c, remained stable in the mid 7 range, no improvement despite iron EPO given on 12/30/2023 - At this point has had both Endoscopy and Colonoscopy without definitive cause for anemia; could consider capsule endoscopy as an outpatient - iron low normal given 1 gm of venofer, B12 and folate are normal, Plan chronic hypertension stable-metoprolol chronic depression stable- lexapro added buspirone on the try to help with anxiety chronic GERD, on ppi chronic osteomyelitis right ankle, completing antibiotics 12/11 Code: DNR/DNI patient will [facility] and consider entering into palliative care Discharge Exam Patient is pleasant and conversant. She remains massively volume overloaded. She does have slight improvement in her respiratory distress she is not requiring supplemental oxygen. Updated Medication List Medication Instructions Recorded Confirmed Type dextromethorphan-guaifenesin 10 10 ml PO Q4H PRN Cough 03/16/22 12/18/23 History mg-100 mg/5 mL oral liquid (Jasvirssin DM) lorazepam 0.5 mg tablet 0.5 mg PO HS 03/16/22 12/18/23 History atropine 1 % eye drops 1 drp OPR Q8H PRN Dry Eye(S) 07/12/23 12/18/23 History escitalopram oxalate 10 mg tablet 10 mg PO QAM 07/12/23 12/18/23 History ferrous sulfate 142 mg (45 mg 142 mg PO QAM 07/12/23 12/18/23 History iron) tablet,extended release gabapentin 100 mg capsule 100 mg PO BIDM 07/12/23 12/18/23 History acetaminophen 325 mg tablet 650 mg PO Q6H PRN fever/pain 10/02/23 12/18/23 H istory (Tylenol) Saccharomyces boulardii 250 mg 250 mg PO BID 11/21/23 12/18/23 History capsule (Florastor) ondansetron HCl 4 mg tablet 4 mg PO Q6H PRN NAUSEA/VOMITING 11/21/23 12/18/23 History oxymetazoline 0.05 % nasal spray 3 spray intranasal DIRECTED PRN 11/21/23 12/18/23 History EPISTAXIS metoprolol succinate 25 mg 12.5 mg PO BIDM 12/18/23 12/18/23 History tablet,extended release 24 hr bumetanide 2 mg tablet 4 mg (2 x 2 mg) PO TID #90 tabs 12/31/23 Rx metolazone 2.5 mg tablet 5 mg (2 x 2.5 mg) PO DAILY@1330 12/31/23 Rx #30 tabs pantoprazole 40 mg tablet,delayed 40 mg PO DAILY #0 tabs 12/31/23 12/18/23 Rx release potassium chloride 20 mEq 20 meq PO BID #0 tabs 12/31/23 12/18/23 Rx tablet,extended release(part/cryst) spironolactone 25 mg tablet 25 mg PO QAM #0 tabs 12/31/23 12/18/23 Rx Hospital Stay Data Consultations 12/18/23 22:10 ED Decision to Admit Stat 12/25/23 08:56 Consult Nephrology Routine 12/29/23 13:55 Consult Palliative Care Routine Diagnostic Imagining Performed 12/18/23 21:31 CT angio chest PE protocol Stat 12/21/23 11:58 US venous doppler LE BI Routine Pending Results Patient Have Any Pending Studies at Discharge: Yes Discharge Instructions Given to Patient (Per Discharging Provider) Patient was seen by palliative care. She has had some improvement of her peripheral edema with about a 10 pound weight loss however she does not wish to stay in the hospital for further diuresis. Discussion with palliative care does suggest she wishes to return to her home which is [facility] and transition over into hospice care. We will discharge the patient on her diuretic regiment it has been working for her. She has not had any renal distress at this time. Perhaps we can continue diuresis to try to improve her comfort. Total Time Total Time Spent Total Time Spent (In Minutes): It required greater than 30 minutes to prepare this patient for discharge. Coding Level of Care Code 19721 INP/OBS DISCH >30 MIN Diagnoses Acute congestive heart failure I50.9 Heart failure type: unspecified Paroxysmal A-fib I48.0 Anemia D64.9
[2024-01-02 14:17] LABS: Albumin 2.5 g/dL (3.8-4.8); Alpha 1 Globulin 0.5 g/dL (0.2-0.3); Beta-1-Globulin 0.5 g/dL (0.4-0.6); Beta-2-Globulin 0.4 g/dL (0.2-0.5); Free Kappa 25.7 mg/L (3.3-19.4); Free Kappa/Lambda Ratio 0.02 (0.26-1.65); Free Lambda 1252.5 mg/L (5.7-26.3); Gamma Globulin 0.4 g/dL (0.8-1.7); Monoclonal Protein Band 1 DNR g/dL (NONE DETECTED); Monoclonal Protein Band 2 DNR g/dL (NONE DETECTED); Monoclonal Protein Band 3 DNR g/dL (NONE DETECTED); Total Protein 5.2 g/dL (6.1-8.1)
== END 2023-12-31 14:52 | DRG 291 ==
LOC: ED 20:12 → SUATTDRO 22:39 → 2N 22:39